=== PATIENT | male | born 1955 | race Caucasian/White ===

== ENCOUNTER 2021-04-02 12:03 | Inpatient (IN) ==
[2021-04-02 13:06] LABS: Basophils # (auto) 0.05 K/uL (0-0.2); Basophils % (auto) 0.4 %; Eosinophils # (auto) 0.75 K/uL (0-0.5); Eosinophils % (auto) 6.5 %; Hematocrit (blood only) 46.1 % (42-52); Hemoglobin 15.2 g/dL (14.0-18.0); Immature Granulocytes # (auto) 0.03 K/uL (0.00-0.02); Immature Granulocytes % (auto) 0.3 %; Lymphocytes # (auto) 2.49 K/uL (1.2-3.4); Lymphocytes % (auto) 21.6 %; Mean Corpuscular Volume 91.1 fL (80-100); Mean Platelet Volume 10.8 fL (7.4-10.4); Monocytes # (auto) 0.78 K/uL (0.11-0.59); Monocytes % (auto) 6.8 %; Neutrophils # (auto) 7.43 K/uL (1.4-6.5); Neutrophils % (auto) 64.4 %; Platelet Count 247 K/uL (130-400); RDW Coefficient of Variation 14.4 % (11.5-14.5); Red Blood Count 5.06 M/uL (4.7-6.1); White Blood Count 11.53 K/uL (4.8-10.8)
[2021-04-02 13:11] LABS: Alanine Aminotransferase 17 U/L (12-78); Aspartate Aminotransferase 10 U/L (15-37); BUN Creatinine Ratio 19.3 (10-20); Blood Urea Nitrogen 23 mg/dl (7-18); Calcium 9.9 mg/dl (8.5-10.1); Carbon Dioxide 30 mmol/L (21-32); Chloride 98 mmol/L (98-107); Est GFR (African American) 73.3 ml/min; Est GFR (Non-African American) 63.3 ml/min; Glucose 163 mg/dl (70-99); Magnesium 1.6 mg/dl (1.8-2.4); Potassium 4.4 mmol/L (3.5-5.1); Sodium 134 mmol/L (136-145)
[2021-04-02 13:16] LABS: Alkaline Phosphatase 100 U/L (45-117); Bilirubin,Total 0.3 mg/dl (0.2-1); Globulin 3.9 gm/dl (2.5-4.0); Total Protein 7.9 gm/dl (6.4-8.2); Troponin I < 0.015 ng/ml (0-0.045)
[2021-04-02 13:18] LABS: Partial Thromboplastin Ratio 1.1; Partial Thromboplastin Time 29.2 Seconds (21.0-31.0); Prothrombin Time 9.8 Seconds (9.0-12.0)
--- NOTE | 2021-04-02 13:19 | XRay Report ---
SINGLE VIEW CHEST CLINICAL HISTORY: Dyspnea. FINDINGS: An AP, portable, upright chest radiograph is obtained. No prior studies are available for c omparison at the time of dictation. The heart is mildly enlarged noting atherosclerotic calcification of the thoracic aorta. There is prominence of the pulmonary vasculature. Bibasilar opacities likely represent scarring/atelectasis. No large pleural effusion or pneumothorax is seen. The skeletal struc tures are osteopenic. The bony thorax is grossly intact. IMPRESSION: 1. Cardiomegaly with prominence of the pulmonary vasculature. Correlate clinically for evidence of mi ld congestive failure. 2. Bibasilar opacities likely represent scarring/atelectasis. Clinical correlation will be required. ACT 112: Negative or not required by law. Electronically signed by: Herson Lopez M.D. 04/02/2021 1:18 PM
--- NOTE | 2021-04-02 13:30 | Emergency Department Note ---
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 He has noted progressive dyspnea on exertion and intermittent shortness of breath at rest. He has to sleep upright in his recliner or in bed with at least 2 pillows. He has had a productive cough over the last two weeks along with distention of his ab domen and stable lower extremity swelling. He has not noted any chest pain prior to this worsening of his breathing and currently is chest pain free. Stress Echo on 03/19/20 with normal LV size and systolic function with EF at 60% at rest with no wall motion abnormality and dilated right ventricle. Normal response to dobutamine. He has had a heart cath in April that showed PAH that was thought to be secondary to untreated severe BETTE and non-occlusive CAD. He was last seen by cardiology in May but has canceled all of his follow up appointments. He has been taking his 40mg of Lasix daily. He does not follow a low sodium diet and does not weigh himself. He has not been vaccinated against COVID-19, does not have any sick contacts. He denies fevers, diarrhea or sore throat. On arrival the patient is no acute distress, afebrile with O2 saturation 86% on room air vital signs otherwise stable. On exam the patient does appear hypervolemic with scant bilateral lower extremity edema, diminished breath sounds at the bases. He has mild JVD. EKG without overt acute ischemia. Chest x-ray demonstrates evidence of mild congestive failure. WBC 11.5K nonspecific. H/H and platelets within normal limits. Chemistry without metabolic acidosis. Magnesium 1.6 and electrolytes otherwise unremarkable. LFTs unremarkable. Troponin negative/undetectable. BNP within normal limits. COVID-[address] of the chest negative for PE. Note is made of intraluminal calcified density at the takeoff of the left upper lobe bronchus with minimal associated mucus or soft tissue. Nonspecific and could represent broncholith, calcified soft tissue lesion or aspirated foreign body. Mucous plugging is noted of the left upper lobe bronchus with segmental upper lobe atelectasis. Malignancy is in the differential but not definitive. Esophagitis is also seen. Patient was ordered for IV Lasix given his exam consistent with hypervolemia. However, given the patient's hypoxia he was in agreement with plan for admission. Case was discussed with CHARLIE Quinteros hospitalist, who will evaluate the patient for admission. This patient was managed with the assistance of resident, Dr. Zuluaga. I discussed the case with the resident, examined the patient, and confirm the findings and plan as documented in this note. Triage Nursing notes reviewed and agree them. Prior medical records reviewed Vital Signs: reviewed and remarkable for hypoxia. Differential diagnosis: Reactive airway disease, pneumonia, pneumothorax, COPD, CHF, infections, cardiac ischemia, pulmonary embolism, musculoskeletal, gastrointestinal, as well as o ther pathologies. ER treatment provided: See below. Diagnostics interpreted by me: ECG: Sinus tachycardia, 103 bpm, no ectopy, Right bundle branch block, no overt ST elevation or depression. Cardiac Monitoring: An order for continuous cardiac monitoring was placed and demonstrated sinus tachycardia, 103 bpm, no ectopy. Laboratory studies: See below Imaging studies: See below Consultation(s): Case was discussed with JAMES Quinteros hospitalist, who will evaluate the patient for admission. 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 He has noted progressive dyspnea on exertion and intermittent shortness of breath at rest. He has to sleep upright in his recliner or in bed with at least 2 pillows. He has had a productive cough over the last two weeks along with distention of his abdomen and stable lower extremity swelling. He has not noted any chest pain prior to this worsening of his breathing and currently is chest pain free. Stress Echo on 03/19/20 with normal LV size and systolic function with EF at 60% at rest with no wall motion abnormality and dilated right ventricle. Normal response to dobutamine. He has had a heart cath in April that showed PAH that was thought to be secondary to untreated severe BETTE and non-occlusive CAD. He was last seen by cardiology in May but has canceled all of his follow up appointments. He has been taking his 40mg of Lasix daily. He does not follow a low sodium diet and does not weigh himself. He has not been vaccinated against COVID-19, does not have any sick contacts. He denies fevers, diarrhea or sore throat. ROS: See above HPI for pertinent positives & negatives. A total of 10 systems reviewed and were otherwise negative. PAST MEDICAL HISTORY:See Below PAST SURGICAL HISTORY:See Below FAMILY HISTORY:See Below SOCIAL HISTORY:See Below HOME MEDICATIONS:See Below ALLERGIES:See Below VITALS:See Below PHYSICAL EXAMINATION: GENERAL: Awake, alert, fatigued, mildly dyspneic-appearing, in no distress, BMI 37.7. HENT: Normocephalic, atraumatic. Oropharynx unremarkable. EYES: Normal conjunctiva. Sclera non-icteric. NECK: Supple. No nuchal rigidity. FROM. Mild JVD. RESPIRATORY: Diminished breath sounds at the bases. CARDIAC: Regular rate, normal rhythm. Extremities warm and well perfused. Pulses equal. ABDOMEN: Mildly distended but soft. No tenderness to palpation. No rebound or guarding. No masses. RECTAL: Deferred. MUSCULOSKELETAL: Chest examination reveals no tenderness. The back is symmetrical on inspection without obvious abnormality. There is no CVA tenderness to palpation. No joint edema. LOWER EXTREMITIES: Calves are equal size bilaterally and non-tender. Scant BLE edema. No discoloration. NEURO: Normal sensorium. No sensory or motor deficits noted. SKIN: No rash or jaundice noted. Reinier Rao MD Past Med/Surg History Medical History CHF (congestive heart failure) Coronary artery disease Hyperlipidemia Hypertension BETTE (obstructive sleep apnea) Pulmonary hypertension Type 2 diabetes mellitus Family History Other Family history non-contributory Social History Smoking Status: Never smoker Tobacco Type: Cigarettes Hx Alcohol Use: Yes Hx Substance Use: No Preferred Language: Senegalese Communication Ability: Effective Resident Services Supervisor Required: No Beliefs That Will Affect Care: None Current Living Situation: Family Feels Safe at Home: Yes Assistive Devices: Glasses Allergies Allergies Allergy/AdvReac Type Severity Reaction Status Date / Time empagliflozin Allergy Intermediate Nausea, Unverified 04/02/21 16:57 [From Arianne] Dizziness Home Meds Home Medications Medication Instructions Recorded Confirmed amitriptyline 50 mg tablet 50 mg PO HS 04/02/21 04/02/21 aspirin 81 mg tablet,delayed 81 mg PO QAM 04/02/21 04/02/21 release cilostazol 100 mg tablet 100 mg PO BID 04/02/21 04/02/21 furosemide 40 mg tablet 40 mg PO QAM 04/02/21 04/02/21 glyburide 5 mg tablet 5 mg PO BID 04/02/21 04/02/21 insulin aspart U-100 100 unit/mL 6 unit SUBCUT AC 04/02/21 04/02/21 (3 mL) subcutaneous pen (Novolog Flexpen U-100 Insulin aspart) insulin detemir U-100 100 unit/mL 80 unit SUBCUT BID 04/02/21 04/02/21 (3 mL) subcutaneous pen (Levemir FlexTouch U-100 Insulin) lisinopril 30 mg tablet 30 mg PO QAM 04/02/21 04/02/21 metformin 1,000 mg tablet 1,000 mg PO BID 04/02/21 04/02/21 metoprolol succinate 50 mg 50 mg PO QAM 04/02/21 04/02/21 tablet,extended release 24 hr nitroglycerin 0.4 mg sublingual 0.4 mg BUCCAL DIRECTED PRN 04/02/21 04/02/21 tablet rosuvastatin 10 mg tablet (Crestor) 10 mg PO DAILY 04/02/21 04/02/21 Results & Data (ED) Vital Signs Vital Signs - 24 hr 04/02/21 12:03 04/02/21 12:48 04/02/21 12:53 Temperature 37.3 C Temperature Source Oral Pulse Rate 103 H 97 H Pulse Rate from SpO2 Sensor 97 H Respiratory Rate 19 24 Blood Pressure 146/113 H 129/80 Blood Pressure Mean 124 96 Pulse Oximetry 97 97 97 Oxygen Delivery Method Nasal Cannula Room Air Nasal Cannula Oxygen Flow Rate 3 Sepsis Recent Fever Within 48 Hours No Sepsis New/Unexplained Change in Mental Status No Sepsis Action Taken by Nursing No Action Required 04/02/21 13:00 04/02/21 13:30 04/02/21 14:03 Temperature Temperature Source Pulse Rate 93 H 88 86 Pulse Rate from SpO2 Sensor 93 H 88 86 Respiratory Rate 18 15 17 Blood Pressure 103/64 93/60 L 117/78 Blood Pressure Mean 77 71 91 Pulse Oximetry 96 96 99 Oxygen Delivery Method Nasal Cannula Nasal Cannula Nasal Cannula Oxygen Flow Rate 3 3 3 Sepsis Recent Fever Within 48 Hours Sepsis New/Unexplained Change in Mental Status Sepsis Action Taken by Nursing 04/02/21 14:30 04/02/21 15:00 04/02/21 15:41 Temperature Temperature Source Pulse Rate 85 85 85 Pulse Rate from SpO2 Sensor 85 87 Respiratory Rate 12 18 18 Blood Pressure 95/58 L 107/89 122/64 Blood Pressure Mean 70 95 83 Pulse Oximetry 99 99 98 Oxygen Delivery Method Oxygen Flow Rate 3 3 3 Sepsis Recent Fever Within 48 Hours Sepsis New/Unexplained Change in Mental Status Sepsis Action Taken by Nursing 04/02/21 16:00 04/02/21 16:30 04/02/21 17:00 Temperature Temperature Source Pulse Rate 82 80 75 Pulse Rate from SpO2 Sensor 82 81 76 Respiratory Rate 17 18 18 Blood Pressure 113/64 135/109 H 98/56 L Blood Pressure Mean 80 117 70 Pulse Oximetry 99 98 97 Oxygen Delivery Method Oxygen Flow Rate 3 3 2 Sepsis Recent Fever Within 48 Hours Sepsis New/Unexplained Change in Mental Status Sepsis Action Taken by Nursing 04/02/21 17:30 04/02/21 18:00 04/02/21 18:30 Temperature Temperature Source Pulse Rate 79 75 Pulse Rate from SpO2 Sensor 79 75 77 Respiratory Rate 18 14 18 Blood Pressure 92/55 L 103/56 L 115/85 Blood Pressure Mean 67 71 95 Pulse Oximetry 95 96 95 Oxygen Delivery Method Room Air Oxygen Flow Rate 2 2 2 Sepsis Recent Fever Within 48 Hours Sepsis New/Unexplained Change in Mental Status Sepsis Action Taken by Nursing 04/02/21 19:00 Temperature Temperature Source Pulse Rate 71 Pulse Rate from SpO2 Sensor 69 Respiratory Rate 14 Blood Pressure 97/65 L Blood Pressure Mean 75 Pulse Oximetry 92 Oxygen Delivery Method Oxygen Flow Rate 2 Sepsis Recent Fever Within 48 Hours Sepsis New/Unexplained Change in Mental Status Sepsis Action Taken by Nursing Laboratory Data Attestation: I reviewed the patient's lab results. Result diagrams: 04/02/21 12:15 04/02/21 12:15 Lab Results 04/02/21 04/02/21 04/02/21 Range/Units 12:15 12:15 12:15 WBC 11.53 H (4.8-10.8) K/uL RBC 5.06 (4.7-6.1) M/uL Hgb 15.2 (14.0-18.0) g/dL Hct 46.1 (42-52) % MCV 91.1 (80-100) fL MCH 30.0 (25-34) pg MCHC 33.0 (32-36) g/dL RDW Std Deviation 47.0 H (36.4-46.3) fL RDW Coeff of Larry 14.4 (11.5-14.5) % Plt Count 247 (130-400) K/uL MPV 10.8 H (7.4-10.4) fL Immature Gran % (Auto) 0.3 % Neut % (Auto) 64.4 % Lymph % (Auto) 21.6 % Ray % (Auto) 6.8 % Eos % (Auto) 6.5 % Baso % (Auto) 0.4 % Neut # (Auto) 7.43 H (1.4-6.5) K/uL Lymph # (Auto) 2.49 (1.2-3.4) K/uL Ray # (Auto) 0.78 H (0.11-0.59) K/uL Eos # (Auto) 0.75 H (0-0.5) K/uL Baso # (Auto) 0.05 (0-0.2) K/uL Immature Gran # (Auto) 0.03 H (0.00-0.02) K/uL PT 9.8 (9.0-12.0) Seconds INR 1.0 (0.9-1.1) APTT 29.2 (21.0-31.0) Seconds PTT Ratio 1.1 Sodium 134 L (136-145) mmol/L Potassium 4.4 (3.5-5.1) mmol/L Chloride 98 (98-107) mmol/L Carbon Dioxide 30 (21-32) mmol/L Anion Gap 6.0 (3-11) BUN 23 H (7-18) mg/dl Creatinine 1.19 (0.6-1.4) mg/dl Est Cr Clr Drug Dosing 75.0 ml/min Est GFR ( Amer) 73.3 ml/min Est GFR (Non-Af Amer) 63.3 ml/min BUN/Creatinine Ratio 19.3 (10-20) Glucose 163 H (70-99) mg/dl Calcium 9.9 (8.5-10.1) mg/dl Magnesium 1.6 L (1.8-2.4) mg/dl Total Bilirubin 0.3 (0.2-1) mg/dl AST 10 L (15-37) U/L ALT 17 (12-78) U/L Alkaline Phosphatase 100 (45-117) U/L Troponin I < 0.015 (0-0.045) ng/ml NT-Pro-B Natriuret Pep (0-900) pg/ml Total Protein 7.9 (6.4-8.2) gm/dl Albumin 4.0 (3.4-5.0) gm/dl Globulin 3.9 (2.5-4.0) gm/dl Albumin/Globulin Ratio 1.0 (0.9-2) COVID-19 Eval Order SARS-CoV-2 (PCR) (Negative) 04/02/21 04/02/21 04/02/21 Range/Units 12:15 14:02 14:02 WBC (4.8-10.8) K/uL RBC (4.7-6.1) M/uL Hgb (14.0-18.0) g/dL Hct (42-52) % MCV (80-100) fL MCH (25-34) pg MCHC (32-36) g/dL RDW Std Deviation (36.4-46.3) fL RDW Coeff of Larry (11.5-14.5) % Plt Count (130-400) K/uL MPV (7.4-10.4) fL Immature Gran % (Auto) % Neut % (Auto) % Lymph % (Auto) % Ray % (Auto) % Eos % (Auto) % Baso % (Auto) % Neut # (Auto) (1.4-6.5) K/uL Lymph # (Auto) (1.2-3.4) K/uL Ray # (Auto) (0.11-0.59) K/uL Eos # (Auto) (0-0.5) K/uL Baso # (Auto) (0-0.2) K/uL Immature Gran # (Auto) (0.00-0.02) K/uL PT (9.0-12.0) Seconds INR (0.9-1.1) APTT (21.0-31.0) Seconds PTT Ratio Sodium (136-145) mmol/L Potassium (3.5-5.1) mmol/L Chloride (98-107) mmol/L Carbon Dioxide (21-32) mmol/L Anion Gap (3-11) BUN (7-18) mg/dl Creatinine (0.6-1.4) mg/dl Est Cr Clr Drug Dosing ml/min Est GFR ( Amer) ml/min Est GFR (Non-Af Amer) ml/min BUN/Creatinine Ratio (10-20) Glucose (70-99) mg/dl Calcium (8.5-10.1) mg/dl Magnesium (1.8-2.4) mg/dl Total Bilirubin (0.2-1) mg/dl AST (15-37) U/L ALT (12-78) U/L Alkaline Phosphatase (45-117) U/L Troponin I (0-0.045) ng/ml NT-Pro-B Natriuret Pep 16 (0-900) pg/ml Total Protein (6.4-8.2) gm/dl Albumin (3.4-5.0) gm/dl Globulin (2.5-4.0) gm/dl Albumin/Globulin Ratio (0.9-2) COVID-19 Eval Order Covid19 at [facility] SARS-CoV-2 (PCR) NEGATIVE (Negative) Administered Medications Amitriptyline HCl (Amitriptyline Hcl 50 Mg Tab) 50 mg PO HS WENDY Stop: 05/02/21 23:12 Last Admin: 04/03/21 01:08 Dose: 50 mg Documented by: [id number] Cilostazol (Cilostazol 100 Mg Tab) 100 mg PO BID WENDY Stop: 05/02/21 23:12 Last Admin: 04/03/21 01:08 Dose: 100 mg Documented by: [id number] Enoxaparin Sodium (Enoxaparin Inj 40 Mg/0.4 Ml Syr) 40 mg SQ BID WENDY Stop: 05/02/21 23:44 Last Admin: 04/03/21 01:09 Dose: 40 mg Documented by: [id number] Insulin Aspart (Insulin Aspart 100 Units/Ml 3 Ml Pen) 0 units SC ACHS WENDY Stop: 05/02/21 23:44 Last Admin: 04/03/21 01:09 Dose: 1 units Documented by: [id number] Cosigned by: [id number] Discontinued Medications Furosemide (Furosemide 40 Mg/4 Ml Vial) 40 mg IV NOW STA Stop: 04/02/21 13:38 Last Admin: 04/02/21 13:54 Dose: 40 mg Documented by: [id number] Magnesium Sulfate/Dextrose (Magnesium Sulfate / D5w) 1 gm in 100 mls @ 50 mls/hr IV Q2H STA Stop: 04/02/21 21:54 Last Infusion: 04/02/21 22:32 Dose: 0 mls/hr Documented by: [id number] Admin: 04/02/21 20:20 Dose: 50 mls/hr Documented by: [id number] Ioversol (Optiray 320 125ml) 120 ml IV ONCE ONE Stop: 04/02/21 15:35 Last Admin: 04/02/21 15:35 Dose: 120 ml Documented by: [id number] Imaging Data Radiologist's Impression: Chest CTA 04/02/21 15:11 CT ANGIOGRAPHY OF THE CHEST, PULMONARY EMBOLUS PROTOCOL CLINICAL HISTORY: Chest pain. COMPARISON STUDY: Chest radiograph performed earlier today. TECHNIQUE: Following IV administration of 120 mL of Optiray, helical axial images of the chest were obtained utilizing the pulmonary embolus protocol. Maximal intensity projections and sagittal and coronal reformats were viewed on an independent 3D workstation. IV contrast was administered without complication. Automated exposure control was utilized for the study. A dose lowering technique was utilized adhering to the principles of ALARA. CT DOSE: 741.47 mGy.cm FINDINGS: No pulmonary emboli are identified. There is mild circumferential wall thickening of the esophagus. Mild cardiomegaly is noted. There is no pericardial effusion. No enlarged axillary, mediastinal or hilar lymph nodes are present. There is no consolidation to suggest pneumonia. Note is made of an 8 mm intraluminal calcified density at the takeoff of the left upper lobe bronchus. This is minimal associated soft tissue or mucus. There is occlusion of the left upper lobe bronchus just distal to the calcified density. There is moderate left upper lobe volume loss with airspace opacity consistent with atelectasis. Otherwise, the central airways are patent. Subpleural right lower lobe opacity reflects atelectasis. No acute fracture or suspicious lesion is identified within visualized portions of the bony thorax. IMPRESSION: 1. No pulmonary emboli identified. 2. 8 mm intraluminal calcified density at the takeoff of the left upper lobe bronchus. Minimal associated mucus or soft tissue. This could reflect a broncholith, partially calcified soft tissue lesion or aspirated foreign body. Focal occlusion of the adjacent left upper lobe bronchus, likely due to mucus, with segmental left upper lobe atelectasis and moderate volume loss. Although the findings are not overtly suspicious for malignancy, this possibility cannot be completely excluded and Pulmonary consultation for consideration for bronc hoscopy is recommended. 3. Mild circumferential esophageal wall thickening which may reflect esophagitis. 4. No thoracic lymphadenopathy. ACT 112: Negative or not required by law. Electronically signed by: Thomas Saeed M.D. 04/02/2021 3:59 PM Discharge Plan Visit Data Chief Complaint: Shortness of Breath/Dyspnea Stated Complaint: SOB ED Provider: Reinier Rao ED Midlevel Provider: Samuel Zuluaga Discharge Problem: Congestive heart failure, Hypoxia, Mucus plugging of bronchi Patient Disposition: Admitted As Inpatient Discharge Instructions Interventions: ED Discharge Assessment Last Done: 04/02/21 22:45 Discharge Problem: Congestive heart failure Qualifiers: Heart failure type: unspecified Heart failure chronicity: acute on chronic Qualified Code(s): I50.9 - Heart failure, unspecified
[2021-04-02] MEDS ORDERED: FUROSEMIDE 40 MG/4 ML VIAL IV STA (13:37)
[2021-04-02] MEDS ORDERED: OPTIRAY 320 125ml IV ONE (15:34)
--- NOTE | 2021-04-02 16:00 | CT Scan Report ---
CT ANGIOGRAPHY OF THE CHEST, PULMONARY EMBOLUS PROTOCOL CLINICAL HISTORY: Chest pain. COMPARISON STUDY: Chest radiograph performed earlier today. TECHNIQUE: Following IV administration of 120 mL of Optiray, helical axial images of the chest were o btained utilizing the pulmonary embolus protocol. Maximal intensity projections and sagittal and cor onal reformats were viewed on an independent 3D workstation. IV contrast was administered without co mplication. Automated exposure control was utilized for the study. A dose lowering technique was ut ilized adhering to the principles of ALARA. CT DOSE: 741.47 mGy.cm FINDINGS: No pulmonary emboli are identified. There is mild circumferential wall thickening of the e sophagus. Mild cardiomegaly is noted. There is no pericardial effusion. No enlarged axillary, mediast inal or hilar lymph nodes are present. There is no consolidation to suggest pneumonia. Note is made o f an 8 mm intraluminal calcified density at the takeoff of the left upper lobe bronchus. This is mini mal associated soft tissue or mucus. There is occlusion of the left upper lobe bronchus just distal t o the calcified density. There is moderate left upper lobe volume loss with airspace opacity consiste nt with atelectasis. Otherwise, the central airways are patent. Subpleural right lower lobe opacity r eflects atelectasis. No acute fracture or suspicious lesion is identified within visualized portions of the bony thorax. IMPRESSION: 1. No pulmonary emboli identified. 2. 8 mm intraluminal calcified density at the takeoff of the left upper lobe bronchus. Minimal associ ated mucus or soft tissue. This could reflect a broncholith, partially calcified soft tissue lesion o r aspirated foreign body. Focal occlusion of the adjacent left upper lobe bronchus, likely due to muc us, with segmental left upper lobe atelectasis and moderate volume loss. Although the findings are no t overtly suspicious for malignancy, this possibility cannot be completely excluded and Pulmonary con sultation for consideration for bronchoscopy is recommended. 3. Mild circumferential esophageal wall thickening which may reflect esophagitis. 4. No thoracic lymphadenopathy. ACT 112: Negative or not required by law. Electronically signed by: Thomas Monte M.D. 04/02/2021 3:59 PM
--- NOTE | 2021-04-02 19:19 | History & Physical Report ---
Date of Service April 02, 2021 History of Present Illness Chief Complaint: SOB Primary Care Provider: NO PCP 66 y/o M Hx HTN, HLD, DM II, PAD, CAD, CHF, obese, BETTE. Presents with progressive shortness of breath for the past few weeks. He denies CP, a cough or fevers. The pt is a poor historian. He does not compy with CPAP for BETTE and does not follow with a sanding machine tender automatic or his MD frequently. He states that he is always compliant with his medications however. The pt's 02 saturation was in the mid to high 80s on arrival. A CXR demonstrated vascular congestion. A CTA was obtained as he was tachycardic, and showed an 8mm density in a YASMEEN bronchus with local occlusion. There was no evidence of ischemia on an EKG. Labs were notable for a mag of 1.6 and mild leukocytosis. PMH: 1) HTN 2) HLD 3) IDDM 4) DM II 5) PAD 6) CAD - states he was catheterized twice for CP but did not receive stents 7) CHF - unspecified 8) Obese 9) BETTE - noncompliant with CPAP Surgical: Denies prior surgery Social: Quit smoking . Does not drink alcohol. Retired from [employer]. Family: Mother - multiple CVAs Father - DM Allergies Allergy/AdvReac Type Severity Reaction Status Date / Time empagliflozin Allergy Intermediate Nausea, Unverified 04/02/21 16:57 [From Jardiance] Dizziness Home Medications Medication Instructions Recorded Confirmed Type amitriptyline 50 mg tablet 50 mg PO HS 04/02/21 04/02/21 History aspirin 81 mg tablet,delayed 81 mg PO QAM 04/02/21 04/02/21 History release cilostazol 100 mg tablet 100 mg PO BID 04/02/21 04/02/21 History furosemide 40 mg tablet 40 mg PO QAM 04/02/21 04/02/21 History glyburide 5 mg tablet 5 mg PO BID 04/02/21 04/02/21 History insulin aspart U-100 100 unit/mL 6 unit SUBCUT AC 04/02/21 04/02/21 History (3 mL) subcutaneous pen (Novolog Flexpen U-100 Insulin aspart) insulin detemir U-100 100 unit/mL 80 unit SUBCUT BID 04/02/21 04/02/21 History (3 mL) subcutaneous pen (Levemir FlexTouch U-100 Insulin) lisinopril 30 mg tablet 30 mg PO QAM 04/02/21 04/02/21 History metformin 1,000 mg tablet 1,000 mg PO BID 04/02/21 04/02/21 History metoprolol succinate 50 mg 50 mg PO QAM 04/02/21 04/02/21 History tablet,extended release 24 hr nitroglycerin 0.4 mg sublingual 0.4 mg BUCCAL DIRECTED PRN 04/02/21 04/02/21 History tablet rosuvastatin 10 mg tablet (Crestor) 10 mg PO DAILY 04/02/21 04/02/21 History Past Med/Surg History Social History Smoking Status: Former smoker Tobacco Type: Cigarettes Preferred Language: Palestinian Feels Safe at Home: Yes Review of Systems Review of Systems: Gen: Denies fevers, night sweats, rigors, fatigue, malaise, weight loss/gain ENT: Denies congestion, throat pain, hearing loss Eyes: Denies acute visual changes CV: Denies CP, palpitations Pulmonary: Progressive SOB without cough as above GI: Denies N/V, diarrhea, constipation Neuro: Denies acute or unilateral weakness, acute gait impairment, headache or acute visual changes Musculoskeletal: Denies joint pain, inflammation Endocrine: Denies polydipsia, polyuria Skin: Denies acute rashes or ulcers Physical Exam Physical Exam: General: AAO x 3, no distress ENT: No erythema or exudates, no thrush Eyes: LOW, EOMI Head and neck: Normocephalic, atraumatic, No JVD, neck is supple. Chest/heart: Nontender, S1,2, RRR, no murmurs, no gallops Lungs: CTAB, no wheezing or crackles Abdomen: Nontender, nondistended, BS+ Neuro: AAO x 3, speech is clear, no unilateral weakness or loss of sensation, coordination intact Musculoskeletal: No joint inflammation, muscle tenderness, FROM Skin: No acute rashes or ulcers Extremities: No clubbing, cyanosis, edema Results & Data Results & Data ([facility]) Vital Signs (Past 12 Hours) Vital Signs Temp Pulse Resp BP Pulse Ox 04/02/21 18:30 86 L 04/02/21 17:30 79 18 92/55 L 95 04/02/21 17:00 75 18 98/56 L 97 04/02/21 16:30 80 18 135/109 H 98 04/02/21 16:00 82 17 113/64 99 04/02/21 15:41 85 18 122/64 98 04/02/21 15:00 85 18 107/89 99 04/02/21 14:30 85 12 95/58 L 99 04/02/21 14:03 86 17 117/78 99 04/02/21 13:30 88 15 93/60 L 96 04/02/21 13:00 93 H 18 103/64 96 04/02/21 12:53 97 04/02/21 12:48 97 H 24 129/80 97 04/02/21 12:03 99.1 F 103 H 19 146/113 H 97 Code Status & VTE Plan VTE Prophylaxis Plan VTE Prophylaxis will be ordered: Yes Supervising Physician Co-Signing Physician Notes 66 y/o M Hx HTN, HLD, DM II, PAD, CAD, CHF, obese, BETTE. Presents with progressive shortness of breath for the past few weeks. He denies CP, a cough or fevers. The pt is a poor historian. He does not compy with CPAP for BETTE and does not follow with a sanding machine tender automatic or his MD frequently. He states that he is always compliant with his medications however. The pt's 02 saturation was in the mid to high 80s on arrival. A CXR demonstrated vascular congestion. A CTA was obtained as he was tachycardic, and showed an 8mm density in a YASMEEN bronchus with local occlusion. There was no evidence of ischemia on an EKG. Labs were notable for a mag of 1.6 and mild leukocytosis. 1) Shortness of breath - after receiving IV Lasix in the ER, the pt's oxygen saturation improved into the 90s on RA. When ambulating, he did desaturate however. It is not clear if the occluded bronchus is contributing to his symptoms. We will consult pulmonology. 2) CHF - unknown EF - echo is ordered - cont metoprolol, Lasix. Daily weights, I/O 3) CAD - no evidence of ACS - cont ASA, statin, beta shi 4) DM - sliding scale 5) HTN, HLD - cont lisinopril, metoprolol, Crestor 6) BETTE - not compliant with CPAP - will order 02 HS 7) Hypomagnesemia - received Mg Full code - Lovenox prophylaxis Total time for this admit including review of labs, meds, imaging, records - discussion with pt and ER attending - 45 min PG Care Time/CCT Total # of Minutes Spent Total Time Spent with Patient: Total time spent is greater than 50% in coordination of care (as documented) at patient's floor/unit and/or counseling patient: Coding Level of Care Code 64560 Initial Inpt Care Lvl 3
[2021-04-02] MEDS ORDERED: MAGNESIUM SULFATE / D5W 1 GM/100 ML BAG IV STA (19:55)
[2021-04-02] MEDS ORDERED: CARBOHYDRATES FOR HYPOGLYCEMIA PO PRN (23:13)
[2021-04-02] MEDS ORDERED: DEXTROSE 50% 50 ML SYRINGE IV PRN (23:13)
[2021-04-02] MEDS ORDERED: GLUCAGON FOR INJ 1 MG VIAL SQ PRN (23:13)
[2021-04-02] MEDS ORDERED: GLUCOSE 10 TABS/TUBE PO PRN (23:13)
[2021-04-02] MEDS ORDERED: GLUCOSE 40% GEL 15 GM TUBE PO PRN (23:13)
[2021-04-02] MEDS ORDERED: ACETAMINOPHEN 325 MG TAB PO PRN (23:13)
[2021-04-03] MEDS: AMITRIPTYLINE HCL 50 MG TAB PO SCH ×2 (01:08→20:05)
[2021-04-03] MEDS: cilostazoL 100 MG TAB PO SCH ×3 (01:08→20:05)
[2021-04-03] MEDS: ENOXAPARIN INJ 40 MG/0.4 ML SYR SQ SCH ×3 (01:09→20:04)
[2021-04-03] MEDS: INSULIN ASPART 100 UNITS/ML 3 ML PEN SC SCH ×5 (01:09→20:11)
[2021-04-03 07:52] LABS: Basophils # (auto) 0.04 K/uL (0-0.2); Basophils % (auto) 0.4 %; Eosinophils # (auto) 0.76 K/uL (0-0.5); Eosinophils % (auto) 6.9 %; Hematocrit (blood only) 44.1 % (42-52); Hemoglobin 14.2 g/dL (14.0-18.0); Immature Granulocytes # (auto) 0.03 K/uL (0.00-0.02); Immature Granulocytes % (auto) 0.3 %; Lymphocytes # (auto) 2.73 K/uL (1.2-3.4); Lymphocytes % (auto) 24.7 %; Mean Corpuscular Hemoglobin 29.9 pg (25-34); Mean Corpuscular Hgb Conc 32.2 g/dL (32-36); Mean Corpuscular Volume 92.8 fL (80-100); Mean Platelet Volume 10.8 fL (7.4-10.4); Monocytes # (auto) 0.87 K/uL (0.11-0.59); Monocytes % (auto) 7.9 %; Neutrophils # (auto) 6.64 K/uL (1.4-6.5); Neutrophils % (auto) 59.8 %; Platelet Count 258 K/uL (130-400); RDW Coefficient of Variation 14.5 % (11.5-14.5); Red Blood Count 4.75 M/uL (4.7-6.1); White Blood Count 11.07 K/uL (4.8-10.8)
--- NOTE | 2021-04-03 07:57 | Pulmonary Consultation ---
Date of Consultation April 03, 2021 Assessment & Plan (1) Pneumonia: (2) Acute respiratory failure with hypoxia: (3) Abnormal chest CT: Chest 04/02/2021 personally reviewed: Left upper lobe atelectasis At the uptake of the left upper lobe there is a calcified 8 mm opacity. Foreign body cannot be ruled out Dependent atelectasis right lower lobe --Abnormal chest CT Patient has atelectasis of the left upper lobe with a calcified 8 mm opacity at the takeoff Postobstructive pneumonia cannot be ruled out Plan would be to have a bronchoscopy done --Acute hypoxic respiratory failure Likely secondary to atelectasis of the left upper lobe BNP 16 COVID-19 negative He does have a eosinophilia with eosinophil count 760 --Ex-smoker 35 years smoking history, quit 20 years ago Records reviewed abstinence from smoking PFTs as an outpatient Plan: Bronchoscopy on Tuesday N.p.o. post midnight Hold Lovenox on Tuesday Follow-up procalcitonin Start Rocephin. Patient's QTC is 497 Please note the above document was generated using voice recognition software. It may contain grammatical, syntax or spelling errors.Any formal questions or concerns about the content, text or information contained within the body of this dictation should be directly addressed to the provider for clarification. History of Present Illness Attending Physician: Virgil Terrell History of Present Illness 66-year-old past medical history of type 2 diabetes, coronary artery disease, dyslipidemia presented to the hospital with complaints of shortness of breath going on since last couple of weeks. He also has history of sleep apnea but is not compliant with CPAP Pulmonary consulted for abnormal CT chest Please make note patient is a poor historian. At the time of examination patient states he is doing okay when it comes to his breathing He feels better after coming to the hospital. Denies any chest pain. Denies any dysuria, or diarrhea. Has been coughing but not bringing up any phlegm. Denies any fever or chills. Social history: [id number] smoking history quit approximately 20 years ago years ago, social alcohol, denies any illicit drug use Allergies Allergy/AdvReac Type Severity Reaction Status Date / Time empagliflozin Allergy Intermediate Nausea, Unverified 04/02/21 16:57 [From Jardiance] Dizziness Home Medications Medication Instructions Recorded Confirmed Type amitriptyline 50 mg tablet 50 mg PO HS 08/26/21 08/26/21 History aspirin 81 mg tablet,delayed 81 mg PO QAM 04/02/21 04/02/21 History release cilostazol 100 mg tablet 100 mg PO BID 04/02/21 04/02/21 History furosemide 40 mg tablet 40 mg PO QAM 04/02/21 04/02/21 History glyburide 5 mg tablet 5 mg PO BID 04/02/21 04/02/21 History insulin aspart U-100 100 unit/mL 6 unit SUBCUT AC 04/02/21 04/02/21 History (3 mL) subcutaneous pen (Novolog Flexpen U-100 Insulin aspart) insulin detemir U-100 100 unit/mL 80 unit SUBCUT BID 04/02/21 04/02/21 History (3 mL) subcutaneous pen (Levemir FlexTouch U-100 Insulin) lisinopril 30 mg tablet 30 mg PO QAM 04/02/21 04/02/21 History metformin 1,000 mg tablet 1,000 mg PO BID 04/02/21 04/02/21 History metoprolol succinate 50 mg 50 mg PO QAM 04/02/21 04/02/21 History tablet,extended release 24 hr nitroglycerin 0.4 mg sublingual 0.4 mg BUCCAL DIRECTED PRN 04/02/21 04/02/21 History tablet rosuvastatin 10 mg tablet (Crestor) 10 mg PO DAILY 04/02/21 04/02/21 History Patient History Medical History CHF (congestive heart failure) Coronary artery disease Hyperlipidemia Hypertension BETTE (obstructive sleep apnea) Pulmonary hypertension Type 2 diabetes mellitus Family History Other Family history non-contributory Social History Smoking Status: Never smoker Tobacco Type: Cigarettes Hx Alcohol Use: Yes Hx Substance Use: No Preferred Language: Swedish Communication Ability: Effective Brownell Operator Required: No Beliefs That Will Affect Care: None Current Living Situation: Family How many Children do You have: 5 Feels Safe at Home: Yes Assistive Devices: None Review of Systems Review of Systems: All systems reviewed & are unremarkable except as noted in HPI & below Physical Exam Physical Exam: Constitutional: No acute distress HEENT: EOMI, PERRLA Respiratory system: Decreased air entry bilaterally, no wheeze, no rhonchi, no crackles CVS: S1-S2 positive, no murmurs or gallops Abdomen: Soft, nontender, nondistended, positive bowel sounds x4, obese Extremities: +2 pulses bilaterally radialis/ dorsalis pedis, no cyanosis, no edema Neuro: Awake alert oriented x3 Psych: Normal mood and affect G/U: No Choi Skin: no rashes, warm and dry Lymphatic: no cervical or axillary lymphadenopathy Results & Data Results & Data ([facility]) Vital Signs (Past 12 Hours) Vital Signs Temp Pulse Pulse Resp BP BP Pulse Ox 04/03/21 04:00 36.5 C 73 20 126/80 94 04/02/21 22:58 36.7 C 75 20 133/75 94 04/02/21 22:30 76 16 102/67 93 04/02/21 21:30 78 17 98/50 L 94 04/02/21 21:00 75 16 96/62 L 96 04/02/21 20:30 90 18 98/72 L 93 04/02/21 20:01 73 113/63 95 04/03/21 07:06 PG Care Time/CCT Total # of Minutes Spent Total Time Spent with Patient: Total time spent is greater than 50% in coordination of care (as documented) at patient's floor/unit and/or counseling patient: Coding Level of Care Code 21584 Initial Inpt Care Lvl 3 Diagnoses Pneumonia J18.9 Acute respiratory failure with hypoxia J96.[address] R93.89
[2021-04-03 08:27] LABS: BUN Creatinine Ratio 22.4 (10-20); Creatinine Clr Calc Pharmacy 61.7 ml/min; Est GFR (African American) 58.7 ml/min; Est GFR (Non-African American) 50.7 ml/min; Magnesium 2.2 mg/dl (1.8-2.4); Potassium 4.6 mmol/L (3.5-5.1)
[2021-04-03] MEDS: METOPROLOL SUCC 50MG EXT REL TAB PO SCH (08:29)
[2021-04-03] MEDS: FUROSEMIDE 40 MG TAB PO SCH (08:29)
[2021-04-03] MEDS: lisinopril 10 MG TAB PO SCH (08:29)
[2021-04-03] MEDS: ROSUVASTATIN CALCIUM 10 MG TAB PO SCH (08:29)
[2021-04-03] MEDS: ASPIRIN 81 MG ECTAB PO SCH (08:29)
[2021-04-03] MEDS: MAGNESIUM OXIDE 400 MG TAB PO SCH (08:30)
--- NOTE | 2021-04-03 17:16 | Electrocardiogram Report ---
Test Reason : Blood Pressure : / mmHG Vent. Rate : 103 BPM Atrial Rate : 103 BPM P-R Int : 178 ms QRS Dur : 148 ms QT Int : 380 ms P-R-T Axes : 036 -40 -01 degrees QTc Int : 497 ms Sinus tachycardia Left axis deviation Right bundle branch block Septal infarct , age undetermined Abnormal ECG No previous ECGs available Confirmed by Alex Suazo ([id number]) on 04/03/2021 5:15:45 PM Referred By: REFERRED SELF Confirmed By:Alex Suazo
[2021-04-03] MEDS: cefTRIAXone SODIUM 2,000 MG in DEXTROSE 5% 50 ML IV SCH (17:27)
--- NOTE | 2021-04-03 18:05 | XCELERA ---
[id number]
--- NOTE | 2021-04-03 23:13 | Hospitalist Progress Note ---
Date of Service April 03, 2021 Assessment & Plan (1) Congestive heart failure: Plan: 66 y/o M Hx HTN, HLD, DM II, PAD, CAD, CHF, obese, BETTE. Presents with progressive shortness of breath for the past few weeks. He denies CP, a cough or fevers. The pt is a poor historian. He does not compy with CPAP for BETTE and does not follow with a circuit design engineer or his MD frequently. He states that he is always compliant with his medications however. The pt's 02 saturation was in the mid to high 80s on arrival. A CXR demonstrated vascular congestion. A CTA was obtained as he was tachycardic, and showed an 8mm density in a YASMEEN bronchus with local occlusion. There was no evidence of ischemia on an EKG. Labs were notable for a mag of 1.6 and mild leukocytosis. 1) Shortness of breath - after receiving IV Lasix in the ER, the pt's oxygen saturation improved into the 90s on RA. When ambulating, he did desaturate however. It is not clear if the occluded bronchus is contributing to his symptoms. Appreciate input from pulmonary. Patient will have bronchoscopy on Tuesday 2) CHF - unknown EF - echo is ordered - cont metoprolol, Lasix. Daily weights, I/O 3) CAD - no evidence of ACS - cont ASA, statin, beta shi 4) DM - sliding scale 5) HTN, HLD - cont lisinopril, metoprolol, Crestor 6) BETTE - not compliant with CPAP - will order 02 HS 7) Hypomagnesemia - received Mg Full code - Lovenox prophylaxis Admission and Anticipated Discharge Date Admission Date: April 02, 2021 Subjective Patient reports feeling well. He has no new complaints. Review of Systems Review of Systems: Gen: Denies fevers, night sweats, rigors, fatigue, malaise, weight loss/gain ENT: Denies congestion, throat pain, hearing loss Eyes: Denies acute visual changes CV: Denies CP, palpitations Pulmonary: Progressive SOB without cough as above GI: Denies N/V, diarrhea, constipation Neuro: Denies acute or unilateral weakness, acute gait impairment, headache or acute visual changes Musculoskeletal: Denies joint pain, inflammation Endocrine: Denies polydipsia, polyuria Skin: Denies acute rashes or ulcers Physical Exam Physical Exam: General: AAO x 3, no distress ENT: No erythema or exudates, no thrush Eyes: LOW, EOMI Head and neck: Normocephalic, atraumatic, No JVD, neck is supple. Chest/heart: Nontender, S1,2, RRR, no murmurs, no gallops Lungs: CTAB, no wheezing or crackles Abdomen: Nontender, nondistended, BS+ Neuro: AAO x 3, speech is clear, no unilateral weakness or loss of sensation, coordination intact Musculoskeletal: No joint inflammation, muscle tenderness, FROM Skin: No acute rashes or ulcers Extremities: No clubbing, cyanosis, edema Results & Data Results & Data ([facility]) Vital Signs (Past 12 Hours) Vital Signs Temp Pulse Pulse Resp BP Pulse Ox 04/03/21 19:21 36.7 C 80 18 94/63 L 96 04/03/21 18:13 65 04/03/21 15:18 36.6 C 67 18 95/61 L 93 04/03/21 11:46 36.6 C 67 19 102/66 96 PG Care Time/CCT Total # of Minutes Spent Total Time Spent with Patient: Total time spent is greater than 50% in coordination of care (as documented) at patient's floor/unit and/or counseling patient: Coding Level of Care Code 07116 Subseq Hosp Care Lvl 2 Diagnoses Congestive heart failure I50.9 Heart failure chronicity: acute on chronic Heart failure type: unspecified Time Spent (min) 25 (1) Congestive heart failure Heart failure chronicity: acute on chronic Heart failure type: unspecified Qualified Code(s): I50.9 - Heart failure, unspecified
[2021-04-04] MEDS: INSULIN ASPART 100 UNITS/ML 3 ML PEN SC SCH ×4 (08:11→21:57)
[2021-04-04] MEDS: METOPROLOL SUCC 50MG EXT REL TAB PO SCH (09:28)
[2021-04-04] MEDS: FUROSEMIDE 40 MG TAB PO SCH (09:28)
[2021-04-04] MEDS: MAGNESIUM OXIDE 400 MG TAB PO SCH (09:28)
[2021-04-04] MEDS: cilostazoL 100 MG TAB PO SCH ×2 (09:28→21:05)
[2021-04-04] MEDS: ASPIRIN 81 MG ECTAB PO SCH (09:28)
[2021-04-04] MEDS: lisinopril 10 MG TAB PO SCH (09:28)
[2021-04-04] MEDS: ROSUVASTATIN CALCIUM 10 MG TAB PO SCH (09:29)
[2021-04-04] MEDS: ENOXAPARIN INJ 40 MG/0.4 ML SYR SQ SCH ×2 (09:29→21:05)
--- NOTE | 2021-04-04 14:48 | Pulmonology Progress Note ---
Date of Service April 04, 2021 Assessment & Plan (1) Pneumonia: (2) Acute respiratory failure with hypoxia: (3) Abnormal chest CT: Plan: Chest 04/02/2021 personally reviewed: Left upper lobe atelectasis At the uptake of the left upper lobe there is a calcified 8 mm opacity. Foreign body cannot be ruled out Dependent atelectasis right lower lobe --Abnormal chest CT Patient has atelectasis of the left upper lobe with a calcified 8 mm opacity at the takeoff Postobstructive pneumonia cannot be ruled out Plan would be to have a bronchoscopy done --Acute hypoxic respiratory failure Likely secondary to atelectasis of the left upper lobe BNP 16 COVID-19 negative For cough NECK: Supple, nontender, no lymphadenopathy. He does have a eosinophilia with eosinophil count 760 --Ex-smoker 35 years smoking history, quit 20 years ago Records reviewed abstinence from smoking PFTs as an outpatient Plan: Continue with antibiotics Bronchoscopy 04/06/2021 Please note the above document was generated using voice recognition software. It may contain grammatical, syntax or spelling errors.Any formal questions or concerns about the content, text or information contained within the body of this dictation should be directly addressed to the provider for clarification. Admission and Anticipated Discharge Date Admission Date: April 04, 2021 Subjective Patient seen and examined at bedside. No acute distress, no adverse events overnight. Patient said that he is feeling better compared to when he came to the hospital. Denies any chest pain. Occasional cough not bringing up any phlegm. On asking whether he has any knowledge of aspirating anything like a tooth he denies. Patient has no teeth and he has no dentures. Review of Systems Review of Systems: All systems reviewed & are unremarkable except as noted in Subjective Physical Exam Physical Exam: Constitutional: No acute distress HEENT: EOMI, PERRLA Respiratory system: Decreased air entry bilaterally, no wheeze, no rhonchi, no crackles CVS: S1-S2 positive, no murmurs or gallops Abdomen: Soft, nontender, nondistended, positive bowel sounds x4, obese Extremities: +2 pulses bilaterally radialis/ dorsalis pedis, no cyanosis, no edema Neuro: Awake alert oriented x3 Psych: Normal mood and affect G/U: No Choi Skin: no rashes, warm and dry Lymphatic: no cervical or axillary lymphadenopathy Results & Data Results & Data ([facility]) Vital Signs (Past 12 Hours) Vital Signs Temp Pulse Pulse Resp BP Pulse Ox 04/04/21 11:08 36.4 C L 78 17 115/72 90 04/04/21 08:30 66 04/04/21 07:25 36.7 C 76 18 117/71 94 04/04/21 03:27 36.5 C 67 20 102/64 91 04/03/21 07:06 04/03/21 07:06 PG Care Time/CCT Total # of Minutes Spent Total Time Spent with Patient: Total time spent is greater than 50% in coordination of care (as documented) at patient's floor/unit and/or counseling patient: Coding Level of Care Code 95516 Subseq Hosp Care Lvl 2 Diagnoses Pneumonia J18.9 Acute respiratory failure with hypoxia J96.[address] R93.89
[2021-04-04] MEDS: cefTRIAXone SODIUM 2,000 MG in DEXTROSE 5% 50 ML IV SCH (17:14)
[2021-04-04] MEDS: AMITRIPTYLINE HCL 50 MG TAB PO SCH (21:05)
--- NOTE | 2021-04-04 22:21 | Hospitalist Progress Note ---
Date of Service April 04, 2021 Assessment & Plan (1) Congestive heart failure: Plan: 66 y/o M Hx HTN, HLD, DM II, PAD, CAD, CHF, obese, BETTE. Presents with progressive shortness of breath for the past few weeks. He denies CP, a cough or fevers. The pt is a poor historian. He does not compy with CPAP for BETTE and does not follow with a demand manager or his MD frequently. He states that he is always compliant with his medications however. The pt's 02 saturation was in the mid to high 80s on arrival. A CXR demonstrated vascular congestion. A CTA was obtained as he was tachycardic, and showed an 8mm density in a YASMEEN bronchus with local occlusion. There was no evidence of ischemia on an EKG. Labs were notable for a mag of 1.6 and mild leukocytosis. 1) Shortness of breath - after receiving IV Lasix in the ER, the pt's oxygen saturation improved into the 90s on RA. When ambulating, he did desaturate however. It is not clear if the occluded bronchus is contributing to his symptoms. Appreciate input from pulmonary. Patient will have bronchoscopy on Tuesday. SOB appears to be improving. will transfer off of PCU. 2) CHF - unknown EF - echo is ordered - cont metoprolol, Lasix. Daily weights, I/O 3) CAD - no evidence of ACS - cont ASA, statin, beta shi 4) DM - sliding scale 5) HTN, HLD - cont lisinopril, metoprolol, Crestor 6) BETTE - not compliant with CPAP - will order 02 HS 7) Hypomagnesemia - received Mg Full code - Lovenox prophylaxis Admission and Anticipated Discharge Date Admission Date: April 04, 2021 Subjective Patient reports breathing better. She has no new coomplaints. Review of Systems Review of Systems: All systems reviewed & are unremarkable except as noted in HPI & below Physical Exam Physical Exam: General: AAO x 3, no distress ENT: No erythema or exudates, no thrush Eyes: LOW, EOMI Head and neck: Normocephalic, atraumatic, No JVD, neck is supple. Chest/heart: Nontender, S1,2, RRR, no murmurs, no gallops Lungs: CTAB, no wheezing or crackles Abdomen: Nontender, nondistended, BS+ Neuro: AAO x 3, speech is clear, no unilateral weakness or loss of sensation, coordination intact Musculoskeletal: No joint inflammation, muscle tenderness, FROM Skin: No acute rashes or ulcers Extremities: No clubbing, cyanosis, edema Results & Data Results & Data ([facility]) Vital Signs (Past 12 Hours) Vital Signs Temp Pulse Pulse Pulse Resp BP Pulse Ox 04/04/21 19:03 36.8 C 72 18 152/78 H 95 04/04/21 18:23 73 04/04/21 11:08 36.4 C L 78 17 115/72 90 PG Care Time/CCT Total # of Minutes Spent Total Time Spent with Patient: Total time spent is greater than 50% in coordination of care (as documented) at patient's floor/unit and/or counseling patient: Coding Level of Care Code 33939 Subseq Hosp Care Lvl 2 Diagnoses Congestive heart failure I50.9 Heart failure chronicity: acute on chronic Heart failure type: unspecified Time Spent (min) 25 (1) Congestive heart failure Heart failure chronicity: acute on chronic Heart failure type: unspecified Qualified Code(s): I50.9 - Heart failure, unspecified
[2021-04-05] MEDS: INSULIN ASPART 100 UNITS/ML 3 ML PEN SC SCH ×4 (08:52→21:53)
[2021-04-05] MEDS: ROSUVASTATIN CALCIUM 10 MG TAB PO SCH (08:53)
[2021-04-05] MEDS: ASPIRIN 81 MG ECTAB PO SCH (08:53)
[2021-04-05] MEDS: METOPROLOL SUCC 50MG EXT REL TAB PO SCH (08:53)
[2021-04-05] MEDS: ENOXAPARIN INJ 40 MG/0.4 ML SYR SQ SCH (08:53)
[2021-04-05] MEDS: FUROSEMIDE 40 MG TAB PO SCH (08:53)
[2021-04-05] MEDS: MAGNESIUM OXIDE 400 MG TAB PO SCH (08:53)
[2021-04-05] MEDS: cilostazoL 100 MG TAB PO SCH ×2 (08:53→21:53)
[2021-04-05] MEDS: lisinopril 10 MG TAB PO SCH (08:53)
--- NOTE | 2021-04-05 14:04 | Pulmonology Progress Note ---
Date of Service April 05, 2021 Assessment & Plan (1) Pneumonia: (2) Acute respiratory failure with hypoxia: (3) Abnormal chest CT: Plan: Chest 04/02/2021 personally reviewed: Left upper lobe atelectasis At the uptake of the left upper lobe there is a calcified 8 mm opacity. Foreign body cannot be ruled out Dependent atelectasis right lower lobe --Abnormal chest CT Patient has atelectasis of the left upper lobe with a calcified 8 mm opacity at the takeoff Postobstructive pneumonia cannot be ruled out Plan would be to have a bronchoscopy done --Acute hypoxic respiratory failure Likely secondary to atelectasis of the left upper lobe BNP 16 COVID-19 negative He does have a eosinophilia with eosinophil count 760 --Ex-smoker 35 years smoking history, quit 20 years ago Records reviewed abstinence from smoking PFTs as an outpatient Plan: Continue with antibiotics For bronchoscopy tomorrow. Consent signed, witnessed and put in the chart Hold [employer] today Please note the above document was generated using voice recognition software. It may contain grammatical, syntax or spelling errors.Any formal questions or concerns about the content, text or information contained within the body of th is dictation should be directly addressed to the provider for clarification. Admission and Anticipated Discharge Date Admission Date: April 04, 2021 Subjective Patient seen and examined at bedside. No acute distress, no adverse events overnight. He states he feels better. Denies any chest pain, shortness of breath is improved, no headache, no nausea, no vomiting. Fair appetite Review of Systems Review of Systems: All systems reviewed & are unremarkable except as noted in Subjective Physical Exam Physical Exam: Constitutional: No acute distress HEENT: EOMI, PERRLA Respiratory system: Decreased air entry bilaterally, no wheeze, no rhonchi, no crackles CVS: S1-S2 positive, no murmurs or gallops Abdomen: Soft, nontender, nondistended, positive bowel sounds x4, obese Extremities: +2 pulses bilaterally radialis/ dorsalis pedis, no cyanosis, no edema Neuro: Awake alert oriented x3 Psych: Normal mood and affect G/U: No Choi Skin: no rashes, warm and dry Lymphatic: no cervical or axillary lymphadenopathy Results & Data Results & Data ([facility] [place]) Vital Signs (Past 12 Hours) Vital Signs Temp Pulse Pulse Resp BP Pulse Ox 04/05/21 11:56 36.6 C 71 18 102/58 L 91 04/05/21 07:40 75 04/05/21 06:57 36.8 C 88 18 107/66 93 04/05/21 03:48 37.0 C 72 20 133/75 93 04/05/21 02:10 70 04/03/21 07:06 04/03/21 07:06 PG Care Time/CCT Total # of Minutes Spent Total Time Spent with Patient: Total time spent is greater than 50% in coordination of care (as documented) at patient's floor/unit and/or counseling patient: Coding Level of Care Code 06520 Subseq Hosp Care Lvl 2 Diagnoses Pneumonia J18.9 Acute respiratory failure with hypoxia J96.[address] R93.89
[2021-04-05 14:19] LABS: Basophils # (auto) 0.03 K/uL (0-0.2); Basophils % (auto) 0.3 %; Eosinophils # (auto) 0.64 K/uL (0-0.5); Eosinophils % (auto) 6.8 %; Hemoglobin 13.3 g/dL (14.0-18.0); Immature Granulocytes # (auto) 0.03 K/uL (0.00-0.02); Immature Granulocytes % (auto) 0.3 %; Lymphocytes # (auto) 2.56 K/uL (1.2-3.4); Lymphocytes % (auto) 27.3 %; Mean Corpuscular Hemoglobin 30.6 pg (25-34); Mean Corpuscular Hgb Conc 32.4 g/dL (32-36); Mean Corpuscular Volume 94.3 fL (80-100); Mean Platelet Volume 10.6 fL (7.4-10.4); Monocytes # (auto) 0.73 K/uL (0.11-0.59); Monocytes % (auto) 7.8 %; Neutrophils # (auto) 5.38 K/uL (1.4-6.5); Neutrophils % (auto) 57.5 %; Platelet Count 236 K/uL (130-400); RDW Coefficient of Variation 14.2 % (11.5-14.5); RDW Standard Deviation 48.4 fL (36.4-46.3); Red Blood Count 4.35 M/uL (4.7-6.1); White Blood Count 9.37 K/uL (4.8-10.8)
[2021-04-05 14:38] LABS: BUN Creatinine Ratio 20.2 (10-20); Calcium 8.3 mg/dl (8.5-10.1); Est GFR (African American) 57.3 ml/min; Est GFR (Non-African American) 49.4 ml/min; Potassium 4.4 mmol/L (3.5-5.1)
[2021-04-05] MEDS: cefTRIAXone SODIUM 2,000 MG in DEXTROSE 5% 50 ML IV SCH (16:48)
--- NOTE | 2021-04-05 20:48 | Hospitalist Progress Note ---
Date of Service April 05, 2021 Assessment & Plan (1) Congestive heart failure: Plan: 66 y/o M Hx HTN, HLD, DM II, PAD, CAD, CHF, obese, BETTE. Presents with progressive shortness of breath for the past few weeks. He denies CP, a cough or fevers. The pt is a poor historian. He does not compy with CPAP for BETTE and does not follow with a bilingual trainer or his MD frequently. He states that he is always compliant with his medications however. The pt's 02 saturation was in the mid to high 80s on arrival. A CXR demonstrated vascular congestion. A CTA was obtained as he was tachycardic, and showed an 8mm density in a YASMEEN bronchus with local occlusion. There was no evidence of ischemia on an EKG. Labs were notable for a mag of 1.6 and mild leukocytosis. 1) Shortness of breath - after receiving IV Lasix in the ER, the pt's oxygen saturation improved into the 90s on RA. When ambulating, he did desaturate however. It is not clear if the occluded bronchus is contributing to his symptoms. Appreciate input from pulmonary. Patient will have bronchoscopy on Tuesday. SOB appears to be improving. remains on 3 liters nasal cannula NPO after midnight. 2) CHF - unknown EF - echo is ordered - cont metoprolol, Lasix. Daily weights, I/O 3) CAD - no evidence of ACS - cont ASA, statin, beta shi 4) DM - sliding scale 5) HTN, HLD - cont lisinopril, metoprolol, Crestor 6) BETTE - not compliant with CPAP - will order 02 HS 7) Hypomagnesemia - received Mg Full code - Lovenox prophylaxis Admission and Anticipated Discharge Date Admission Date: April 04, 2021 Subjective 66 yo male reports no new symptoms. Review of Systems Review of Systems: All systems reviewed & are unremarkable except as noted in HPI & below Physical Exam Physical Exam: General: AAO x 3, no distress ENT: No erythema or exudates, no thrush Eyes: LOW, EOMI Head and neck: Normocephalic, atraumatic, No JVD, neck is supple. Chest/heart: Nontender, S1,2, RRR, no murmurs, no gallops Lungs: CTAB, no wheezing or crackles Abdomen: Nontender, nondistended, BS+ Neuro: AAO x 3, speech is clear, no unilateral weakness or loss of sensation, coordination intact Musculoskeletal: No joint inflammation, muscle tenderness, FROM Skin: No acute rashes or ulcers Extremities: No clubbing, cyanosis, edema Results & Data Results & Data ([facility]) Vital Signs (Past 12 Hours) Vital Signs Temp Pulse Pulse Resp BP Pulse Ox 04/05/21 19:06 65 04/05/21 15:54 36.6 C 67 16 111/71 93 04/05/21 11:56 36.6 C 71 18 102/58 L 91 PG Care Time/CCT Total # of Minutes Spent Total Time Spent with Patient: Total time spent is greater than 50% in coordination of care (as documented) at patient's floor/unit and/or counseling patient: Coding Level of Care Code 68091 Subseq Hosp Care Lvl 2 Diagnoses Congestive heart failure I50.9 Heart failure chronicity: acute on chronic Heart failure type: unspecified (1) Congestive heart failure Heart failure chronicity: acute on chronic Heart failure type: unspecified Qualified Code(s): I50.9 - Heart failure, unspecified
[2021-04-05] MEDS: AMITRIPTYLINE HCL 50 MG TAB PO SCH (21:53)
[2021-04-06] MEDS: INSULIN ASPART 100 UNITS/ML 3 ML PEN SC SCH ×4 (07:51→20:14)
[2021-04-06] MEDS: cilostazoL 100 MG TAB PO SCH ×2 (07:52→20:31)
[2021-04-06] MEDS: ASPIRIN 81 MG ECTAB PO SCH (07:52)
[2021-04-06] MEDS: METOPROLOL SUCC 50MG EXT REL TAB PO SCH (07:52)
[2021-04-06] MEDS: MAGNESIUM OXIDE 400 MG TAB PO SCH (07:52)
[2021-04-06] MEDS: ROSUVASTATIN CALCIUM 10 MG TAB PO SCH (07:52)
[2021-04-06 08:33] LABS: Hemoglobin 13.6 g/dL (14.0-18.0); Mean Corpuscular Hemoglobin 30.4 pg (25-34); Mean Corpuscular Hgb Conc 32.4 g/dL (32-36); Mean Corpuscular Volume 93.8 fL (80-100); Mean Platelet Volume 10.7 fL (7.4-10.4); Platelet Count 227 K/uL (130-400); RDW Coefficient of Variation 14.2 % (11.5-14.5); RDW Standard Deviation 48.6 fL (36.4-46.3); Red Blood Count 4.48 M/uL (4.7-6.1); White Blood Count 9.04 K/uL (4.8-10.8)
[2021-04-06 08:41] LABS: BUN Creatinine Ratio 21.3 (10-20); Calcium 8.5 mg/dl (8.5-10.1); Creatinine Clr Calc Pharmacy 82.7 ml/min; Est GFR (African American) 84.3 ml/min; Est GFR (Non-African American) 72.8 ml/min; Magnesium 2.4 mg/dl (1.8-2.4); Potassium 4.5 mmol/L (3.5-5.1)
--- NOTE | 2021-04-06 09:01 | Pulmonology Progress Note ---
Date of Service April 06, 2021 Assessment & Plan (1) Pneumonia: (2) Acute respiratory failure with hypoxia: (3) Abnormal chest CT: Plan: Chest 04/02/2021 personally reviewed: Left upper lobe atelectasis At the uptake of the left upper lobe there is a calcified 8 mm opacity. Foreign body cannot be ruled out Dependent atelectasis right lower lobe --Abnormal chest CT Patient has atelectasis of the left upper lobe with a calcified 8 mm opacity at the takeoff Postobstructive pneumonia cannot be ruled out Plan would be to have a bronchoscopy done --Acute hypoxic respiratory failure Likely secondary to atelectasis of the left upper lobe BNP 16 COVID-19 negative He does have a eosinophilia with eosinophil count 760 --Ex-smoker 35 years smoking history, quit 20 years ago Records reviewed abstinence from smoking PFTs as an outpatient Plan: For bronchoscopy today. Consent in the chart. Continue with antibiotics Please note the above document was generated using voice recognition software. It may contain grammatical, syntax or spelling errors.Any formal questions or concerns about the content, text or information contained within the body of this dictation should be directly addressed to the provider for clarification. Admission and Anticipated Discharge Date Admission Date: April 04, 2021 Subjective Seen in family bedside. No acute distress, no adverse events overnight. Patient stated he is feeling better compared to when he came to the hospital. Shortness of breath improved. No cough. Does not bring up any phlegm. Denies any chest pain Good appetite. No headache, no nausea, no Review of Systems Review of Systems: All systems reviewed & are unremarkable except as noted in Subjective Physical Exam Physical Exam: Constitutional: No acute distress HEENT: EOMI, PERRLA Respiratory system: Decreased air entry bilaterally, no wheeze, no rhonchi, no crackles CVS: S1-S2 positive, no murmurs or gallops Abdomen: Soft, nontender, nondistended, positive bowel sounds x4, obese Extremities: +2 pulses bilaterally radialis/ dorsalis pedis, no cyanosis, no edema Neuro: Awake alert oriented x3 Psych: Normal mood and affect G/U: No Choi Skin: no rashes, warm and dry Lymphatic: no cervical or axillary lymphadenopathy Results & Data Results & Data ([facility]) Vital Signs (Past 12 Hours) Vital Signs Temp Pulse Pulse Resp BP Pulse Ox 04/06/21 07:00 36.8 C 71 18 128/78 93 04/06/21 03:05 36.6 C 74 18 130/76 91 04/06/21 02:16 69 04/05/21 23:00 36.6 C 68 18 124/75 94 04/06/21 07:51 04/06/21 07:51 PG Care Time/CCT Total # of Minutes Spent Total Time Spent with Patient: Total time spent is greater than 50% in coordination of care (as documented) at patient's floor/unit and/or counseling patient: Coding Level of Care Code 75365 Subseq Hosp Care Lvl 3 Diagnoses Pneumonia J18.9 Acute respiratory failure with hypoxia J96.[address] R93.89
[2021-04-06] MEDS ORDERED: MIDAZOLAM HCL 5 MG/ML 1 ML VIAL ONE ×2 (09:28→09:33)
[2021-04-06] MEDS ORDERED: fentaNYL citrate 100 MCG/2 ML VIAL ONE ×2 (09:28→09:34)
--- NOTE | 2021-04-06 10:09 | Pre Anesthesia Assessment ---
Date of Service April 06, 2021 Pre Sedation Assessment Vital Signs Temp Pulse Pulse Resp BP Pulse Ox 04/06/21 09:51 68 18 130/83 100 04/06/21 07:00 36.8 C 71 18 128/78 93 04/06/21 03:05 36.6 C 74 18 130/76 91 04/06/21 02:16 69 04/05/21 23:00 36.6 C 68 18 124/75 94 04/05/21 19:06 65 04/05/21 19:00 36.7 C 70 18 115/72 95 04/05/21 15:54 36.6 C 67 16 111/71 93 04/05/21 11:56 36.6 C 71 18 102/58 L 91 Pre-Sedation Airway Assessment Smoking Status: Never smoker Hx Sleep Apnea: Yes Short, Thick Neck: Yes Thyromental Distance: > or= 3.5 Finger Breadths Oral Cavity: + WNL Mallampati Class: I ASA: ASA2 NPO Status Date of Last Intake of Fluids: 04/06/21 Time of Last Intake of Fluids: 07:30 Last Oral Intake of Fluids Comment: sips with meds Date of Last Intake of Solid Food: 04/06/21 Time of Last Intake of Solid Foods: 00:00 Procedure Planning Contraindications for Sedation: none Current Medications Reviewed: Yes Notes The planned sedation has been discussed with the patient. Informed Consent was obtained. I have identified the patient, determined the appropriateness of sedation and have assessed the patient immediately prior to the procedure. All medicine(s) and interventions are by my order.
--- NOTE | 2021-04-06 10:42 | Procedure Note ---
Procedure Note Date of Service April 06, 2021 Note PREOPERATIVE DIAGNOSIS: Left upper lobe obstructive lesion POSTOPERATIVE DIAGNOSIS: Left upper lobe endobronchial polyp/lesion PROCEDURE PERFORMED: Flexible fiberoptic bronchoscopy with transbronchial biopsies and endobronchial forceps COMPLICATIONS: None. INDICATION: Rule out malignancy PROCEDURE: After obtaining an informed consent, the patient was brought to the Bronchoscopy Suite. The patient had appropriate oxygen, blood pressure, heart rate, and respiratory rate monitoring applied and monitored continuously throughout the procedure. Supplemental oxygen via nasal cannula as per nursing records was applied to the nasopharynx with adequate saturations achieved. Topical anesthesia with nebulized 1% lidocaine was achieved. Subsequent to this, the patient was premedicated with 7 mg of midazolam and 125 mcg of fentanyl. Upper Airway: The oropharynx and larynx were well visualized and was otherwise negative There was normal vocal cord motion without masses or lesions. Additional topical anesthesia with 1% lidocaine was applied to the trachea and sobia. There was dynamic compression/collapse of the airways on exhalation The trachea appeared normal.The bronchoscope was then advanced through the sobia, which was sharp. The scope was then advanced into the right main stem and each segment, subsegement in the right upper lobe, right middle lobe and right lower lobe were visualized. There was minimal amount of grayish-yellow secretion which were suctioned out. There were no other findings including evidence of mass, anatomic distortions, or hemorrhage. The bronchoscope was subsequently withdrawn and advanced into the left mainstem. Right at the takeoff of the left upper lobe there was endobronchial sessile polyp mobile. It was obstructing the whole left upper lobe. The bronchoscope could not be advanced beyond beyond the polyp unfortunately. It was easily mobile on suction Left lower lobe each segments were visualized. There was no other finding of anatomic distortion or hemorrhage in the left lower lobe. There was minimal amount of clear secretion which were suctioned out. The bronchoscope was then re-advanced into the left upper lobe and multiple endobronchial biopsies were taken of the polyp. Needle biopsies were also performed of the same endobronchial polyp. The bronchoscope was then withdrawn to the mainstem. The area was suctioned clear. The bronchoscope was then withdrawn. The patient tolerated the procedure well without evidence of desaturation or complications. Transbronchial biopsies and endobronchial biopsies were sent for pathology. Recommendations: Follow-up chest x-ray Patient will likely need interventional pulmonary or CT surgery to see if they can remove the polyp based on the pathology. Please note the above document was generated using voice recognition software. It may contain grammatical, syntax or spelling errors.Any formal questions or concerns about the content, text or information contained within the body of this dictation should be directly addressed to the provider for clarification. Coding CPT Codes Sedation/Anesthesia - Sedation/Anesthesia: 85330 Mod Sedation by the same physician;Init15 Min Child Age 5 & Up ([id number]) Sedation/Anesthesia - Sedation/Anesthesia: 75080 Mod Sedation by the same physician; Ea [id number] Minutes ([id number]) Pulmonary/Thoracic - Pulmonary and Thoracic: 24374 Bronchoscopy w/ needle bx ([id number]) Pulmonary/Thoracic - Pulmonary and Thoracic: 91015 Bronchoscopy w bronchial or endobronchial bx ([id number]) [facility] [place]Charges) Pulmonary/Thoracic Procedure 1: Pulmonary and Thoracic: 75494 Bronchoscopy w/ needle bx Procedure 2: Pulmonary and Thoracic: 86638 Bronchoscopy w bronchial or endobronchial bx Sedation/Anesthesia Procedure 1: Sedation/Anesthesia: 62955 Mod Sedation by the same physician;Init15 Min Child Age 5 & Up Total Sedation Time (minutes): 26 Procedure 2: Sedation/Anesthesia: 55585 Mod Sedation by the same physician; Ea [id number] Minutes Total Sedation Time (minutes): 26
--- NOTE | 2021-04-06 10:59 | Post Anesthesia Assessment ---
Date of Service April 06, 2021 Post Sedation Assessment Vital Signs Temp Pulse Pulse Resp BP Pulse Ox 04/06/21 10:51 92 H 16 120/61 94 04/06/21 10:46 90 16 122/48 L 96 04/06/21 10:41 97 H 16 141/74 H 97 04/06/21 10:36 106 H 12 134/97 96 04/06/21 10:35 100 H 18 157/83 H 94 04/06/21 10:30 91 H 12 141/90 H 97 04/06/21 10:25 88 12 114/75 97 04/06/21 10:20 90 18 123/87 94 04/06/21 10:15 68 18 126/86 99 04/06/21 10:10 68 18 130/80 98 04/06/21 09:51 68 18 130/83 100 04/06/21 07:00 36.8 C 71 18 128/78 93 04/06/21 03:05 36.6 C 74 18 130/76 91 04/06/21 02:16 69 04/05/21 23:00 36.6 C 68 18 124/75 94 04/05/21 19:06 65 04/05/21 19:00 36.7 C 70 18 115/72 95 04/05/21 15:54 36.6 C 67 16 111/71 93 04/05/21 11:56 36.6 C 71 18 102/58 L 91 Recovery Score Activity: Moves 4 extremities Respiration: Deep Breath/Cough Circulation: +/-20% PreAnes Value Consciousness: Arouseable (by name) Oxygen Saturation: > 92% On Room Air Post Anesthesia Score: 9 Discharge Sedation Level of Care: Fast Track Phase II Post Sedation Plan On clinical assessment, the patient appears to have tolerated the sedation without complications. Patient is recovering as anticipated. Patient will continue to be monitored by nursing and may be discharged when sed ation discharge criteria are met per below protocol. Upon Completions of procedure up to 15 minutes continue every 5 minute vital signs and the P.A.R. score; then discharge to a Phase I or Fast Track to Phase II per the following guidelines: * Discharge Patient to appropriate Phase II area if PAR is 8 or greater or return to pre- procedure baseline. The post - procedure orders will be as directed. * If PAR score is less than 8 or not return to pre-procedure baseline then patient will follow Phase I monitoring till PAR is reached for Phase II. The Phase I may be done in procedure room or may call to secure a Phase I area. * If naloxone or flumazenil are used for reversal, hold in Phase I for continued monitoring from when last reversal dose was given for a minimum of 60 minutes or longer pending the nurse and/or physician discretion of patient condition before discharge to Phase II. Please call the Sedation Physician to re-evaluate and complete post-note for discharge to Phase II area. Do NOT discharge from procedure sedation or Phase 1 until post- sedation evaluation note is complete by procedure /sedation MD Sedation Discharge Instructions to be given to the patient at discharge to home.
--- NOTE | 2021-04-06 11:15 | XRay Report ---
XR chest 1V portable CLINICAL HISTORY: s/p bronch COMPARISON STUDY: April 02, 2021 FINDINGS: No pneumothorax. Minimal blunting of the left costophrenic angle is seen and might represent trace left pleural effusi on. Mild interval worsening of linear densities at the right base which could represent atelectasis o r infiltrate. Interval worsening of patchy airspace opacities within left mid to lower lung which could represent i nfiltrative process versus other etiology. Few areas of peribronchial cuffing is seen at the right infrahilar region. Cardiomediastinal silhouette is prominent and partially obscured by airspace opacities on the left. No significant pulmonary vascular congestion.. Osseous structures: unremarkable IMPRESSION: 1. Interval worsening of airspace opacities at the left lower lung region which could represent pneu monia versus other etiology. Possible trace left pleural effusion. 2. Interval worsening of linear densities at the right base which might represent atelectasis. 3. Peribronchial cuffing is seen on the right which could represent pneumonia or pulmonary edema. 4. Obscured cardiac silhouette on the left. 5. The rest of findings as above. ACT 112: Negative or not required by law. The above report was generated using voice recognition software. It may contain grammatical, syntax o r spelling errors. Electronically signed by: Paula Marie DO 04/06/2021 11:14 AM
--- NOTE | 2021-04-06 14:30 | Hospitalist Progress Note ---
Date of Service April 06, 2021 Assessment & Plan (1) Abnormal pulmonary finding: Plan: Believe his presentation shortness of breath was/is due to pulmonary occlusion by a pulmonary polyp which was suctioned back on bronchoscopy on 04/06/[address] Day. Notably, do NOT think this was due to CHF as originally thought. - Continue nasal cannula as needed - Continue abx per pulmonary (2) Pneumonia: Plan: Obstructive pneumonia, POA. - Abx as above (3) CKD (chronic kidney disease) stage 2, GFR 60-89 ml/min: Plan: Acute kidney injury on CKD, Stage II. Cr as high as 1.46, with baseline Cr ~1.0 - 1.1. - Presently back to baseline. - Monitor (4) Acute respiratory failure with hypoxia: Plan: Presumed to be due to atelectasis from the occlusion, though still needing some O2. Possibly due to obesity hypoventilation as well. - O2 PRN (5) Hypertension: Plan: BP presently 115/75. - Continue beta-shi (6) Coronary artery disease: Plan: No indication of ACS at this time. - Continue ASA, Pletal, beta-shi, and statin (7) Type 2 diabetes mellitus: Plan: No A1c in chart. - Sliding scale insulin - Sugars here not too bad considering at home he is on Levemir 80 units BID, and here we have him on no long-acting. Likely significantly affected by diet. Blood sugars 145 - 240 here. (8) BETTE (obstructive sleep apnea): Plan: Per notes, does not use CPAP at home. - Nocturnal O2 here (9) DVT prophylaxis: Plan: Lovenox 40 mg SQ daily Admission and Anticipated Discharge Date Admission Date: April 04, 2021 Subjective Doing well today. Less shortness of breath. Procedure went well and he feels improved overall. Reports no fevers/chills, chest pain, abdominal pain, nausea, or vomiting. Physical Exam Constitutional: WD/WN, vitals as above Eyes: EOM intact bilaterally; no conjunctival abnormality ENMT: external ear and nose normal, oropharynx normal Neck: trachea midline, no thyromegaly normal visual inspection Respiratory: normal respiratory effort, lungs clear to auscultation no respiratory distress Cardiovascular: RRR, no murmur, no edema Gastrointestinal (Abdomen): Inspection/Auscultation: abdomen normal to inspection; abdomen not distended Musculoskeletal: no cyanosis or clubbing, extremities motor strength 5/5 Skin: no rashes, warm and dry Neurologic: moves all extremities and awake Psychiatric: Orientation: alert, oriented to person and cooperative Results & Data Results & Data ([facility]) Vital Signs (Past 12 Hours) Vital Signs Temp Pulse Pulse Resp BP Pulse Ox 04/06/21 13:22 36.6 C 70 18 114/76 94 04/06/21 12:01 36.6 C 76 19 122/85 90 04/06/21 11:35 36.5 C 76 19 137/82 90 04/06/21 11:26 72 04/06/21 11:25 36.4 C L 80 19 134/81 91 04/06/21 11:02 90 16 112/72 94 04/06/21 10:56 92 H 16 120/81 94 04/06/21 10:51 92 H 16 120/61 94 04/06/21 10:46 90 16 122/48 L 96 04/06/21 10:41 97 H 16 141/74 H 97 04/06/21 10:36 106 H 12 134/97 96 04/06/21 10:35 100 H 18 157/83 H 94 04/06/21 10:30 91 H 12 141/90 H 97 04/06/21 10:25 88 12 114/75 97 04/06/21 10:20 90 18 123/87 94 04/06/21 10:15 68 18 126/86 99 04/06/21 10:10 68 18 130/80 98 04/06/21 09:51 68 18 130/83 100 04/06/21 07:00 36.8 C 71 18 128/78 93 04/06/21 03:05 36.6 C 74 18 130/76 91 PG Care Time/CCT Total # of Minutes Spent Total Time Spent with Patient: Total time spent is greater than 50% in coordination of care (as documented) at patient's floor/unit and/or counseling patient: Coding Level of Care Code 77049 Subseq Hosp Care Lvl 3 Diagnoses Abnormal pulmonary finding R09.89 Acute respiratory failure with hypoxia J96.01 Pneumonia J18.9 Hypertension I10 Coronary artery disease I25.10 Type 2 diabetes mellitus E11.9 BETTE (obstructive sleep apnea) G47.33 DVT prophylaxis Z29.9 CKD (chronic kidney disease) stage 2, GFR 60-89 ml/min N18.2
[2021-04-06] MEDS: cefTRIAXone SODIUM 2,000 MG in DEXTROSE 5% 50 ML IV SCH (16:14)
[2021-04-06] MEDS: AMITRIPTYLINE HCL 50 MG TAB PO SCH (20:31)
--- NOTE | 2021-04-07 07:56 | Pulmonology Progress Note ---
Date of Service April 07, 2021 Assessment & Plan (1) Pneumonia: (2) Acute respiratory failure with hypoxia: (3) Abnormal chest CT: Plan: Chest 04/02/2021 personally reviewed: Left upper lobe atelectasis At the uptake of the left upper lobe there is a calcified 8 mm opacity. Foreign body cannot be ruled out Dependent atelectasis right lower lobe --Abnormal chest CT Patient has atelectasis of the left upper lobe with a calcified 8 mm opacity at the takeoff Postobstructive pneumonia cannot be ruled out S/p bronchoscopy 04/06/2021 which showed sessile mobile polyp right at the takeoff of the left upper lobe --Acute hypoxic respiratory failure Likely secondary to atelectasis of the left upper lobe BNP 16 COVID-19 negative He does have a eosinophilia with eosinophil count 760 --Ex-smoker 35 years smoking history, quit 20 years ago Records reviewed abstinence from smoking PFTs as an outpatient Plan: Follow-up cytology. Patient is to follow-up with interventional pulmonary or CT surgery to see if they can take the left upper lobe polyp out Recommend to stop to be done today to see if the patient needs oxygen at home Outpatient polysomnography will be helpful for the patient Would recommend discharging the patient on Anoro Outpatient pulmonary follow-up will be beneficial Case discussed with Dr. Spain Please note the above document was generated using voice recognition software. It may contain grammatical, syntax or spelling errors.Any formal questions or concerns about the content, text or information contained within the body of this dictation should be directly addressed to the provider for clarification. Admission and Anticipated Discharge Date Admission Date: April 04, 2021 Subjective Patient seen and examined at bedside. No acute distress, no adverse events overnight. Denies any chest pain, no headache, no nausea, no vomiting. Noticeable is improved. Denies any hemoptysis. Review of Systems Review of Systems: All systems reviewed & are unremarkable except as noted in Subjective Physical Exam Physical Exam: Constitutional: No acute distress HEENT: EOMI, PERRLA Respiratory system: Decreased air entry bilaterally, no wheeze, no rhonchi, positive crackles bilateral lower lobes more on the left lower CVS: S1-S2 positive, no murmurs or gallops Abdomen: Soft, nontender, nondistended, positive bowel sounds x4, obese Extremities: +2 pulses bilaterally radialis/ dorsalis pedis, no cyanosis, no edema Neuro: Awake alert oriented x3 Psych: Normal mood and affect G/U: No Choi Skin: no rashes, warm and dry Lymphatic: no cervical or axillary lymphadenopathy Results & Data Results & Data ([facility]) Vital Signs (Past 12 Hours) Vital Signs Temp Pulse Pulse Resp BP Pulse Ox 04/07/21 07:37 36.8 C 69 16 128/78 95 04/07/21 03:40 36.4 C L 65 18 127/74 91 04/06/21 23:51 65 04/06/21 22:49 36.9 C 68 20 97/53 L 95 04/06/21 07:51 04/06/21 07:51 PG Care Time/CCT Total # of Minutes Spent Total Time Spent with Patient: Total time spent is greater than 50% in coordination of care (as documented) at patient's floor/unit and/or counseling patient: Coding Level of Care Code 75757 Subseq Hosp Care Lvl 2 Diagnoses Pneumonia J18.9 Acute respiratory failure with hypoxia J96.[address] R93.89
[2021-04-07 08:03] LABS: Hematocrit (blood only) 41.9 % (42-52); Hemoglobin 13.4 g/dL (14.0-18.0); Mean Corpuscular Hemoglobin 29.9 pg (25-34); Mean Corpuscular Volume 93.5 fL (80-100); Mean Platelet Volume 10.5 fL (7.4-10.4); Platelet Count 209 K/uL (130-400); RDW Coefficient of Variation 14.2 % (11.5-14.5); RDW Standard Deviation 48.5 fL (36.4-46.3); Red Blood Count 4.48 M/uL (4.7-6.1); White Blood Count 8.46 K/uL (4.8-10.8)
[2021-04-07] MEDS: INSULIN ASPART 100 UNITS/ML 3 ML PEN SC SCH ×2 (08:06→11:52)
[2021-04-07] MEDS: cilostazoL 100 MG TAB PO SCH (08:07)
[2021-04-07] MEDS: ROSUVASTATIN CALCIUM 10 MG TAB PO SCH (08:07)
[2021-04-07] MEDS: ASPIRIN 81 MG ECTAB PO SCH (08:07)
[2021-04-07] MEDS: METOPROLOL SUCC 50MG EXT REL TAB PO SCH (08:07)
[2021-04-07] MEDS: MAGNESIUM OXIDE 400 MG TAB PO SCH (08:07)
[2021-04-07 08:37] LABS: BUN Creatinine Ratio 19.5 (10-20); Calcium 8.3 mg/dl (8.5-10.1); Creatinine Clr Calc Pharmacy 80.2 ml/min; Est GFR (African American) 81.5 ml/min; Est GFR (Non-African American) 70.4 ml/min; Magnesium 2.3 mg/dl (1.8-2.4); Potassium 4.6 mmol/L (3.5-5.1)
--- NOTE | 2021-04-07 08:54 | XRay Report ---
XR chest 1V portable CLINICAL HISTORY: f/u COMPARISON STUDY: Chest CT April 02, 2021. Chest radiograph April 06, 2021. FINDINGS: Lung volumes are mildly diminished. There is no pneumothorax. Cardiomegaly is unchanged. Ri ght basilar opacity favors atelectasis. There is hazy left basilar opacity. Left suprahilar opacity h as likely slightly improved since initial chest radiograph. There is no evidence for pulmonary edema IMPRESSION: 1. No pneumothorax. 2. Mild left basilar opacity which may reflect an infectious process or atelectasis. Right basilar op acity favors atelectasis. 3. Suspected improvement in left upper lobe airspace opacity since initial chest radiograph. ACT 112: Negative or not required by law. Electronically signed by: Thomas Monte M.D. 04/07/2021 8:53 AM
--- NOTE | 2021-04-07 14:49 | Discharge Summary ---
Date of Service April 07, 2021 Admission HPI Per Admitting Provider 66 y/o M Hx HTN, HLD, DM II, PAD, CAD, CHF, obese, BETTE. Presents with progressive shortness of breath for the past few weeks. He denies CP, a cough or fevers. The pt is a poor historian. 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 He states that he is always compliant with his medications however. The pt's 02 saturation was in the mid to high 80s on arrival. A CXR demonstrated vascular congestion. A CTA was obtained as he was tachycardic, and showed an 8mm density in a YASMEEN bronchus with local occlusion. There was no evidence of ischemia on an EKG. Labs were notable for a mag of 1.6 and mild leukocytosis. PMH: 1) HTN 2) HLD 3) IDDM 4) DM II 5) PAD 6) CAD - states he was catheterized twice for CP but did not receive stents 7) CHF - unspecified 8) Obese 9) BETTE - noncompliant with CPAP Surgical: Denies prior surgery Social: Quit smoking . Does not drink alcohol. Retired from [employer]. Family: Mother - multiple CVAs Father - DM Principal Diagnosis Pulmonary polyp causing YASMEEN obstruction and post-obstructive pneumonia Discharge Exam Constitutional WD/WN, vitals as above Eyes EOM intact bilaterally; no conjunctival abnormality ENMT external ear and nose normal, oropharynx normal Neck trachea midline, no thyromegaly normal visual inspection Respiratory normal respiratory effort, lungs clear to auscultation no respiratory distress Cardiovascular RRR, no murmur, no edema Gastrointestinal (Abdomen) Inspection/Auscultation: abdomen normal to inspection; abdomen not distended Musculoskeletal no cyanosis or clubbing, extremities motor strength 5/5 Skin no rashes, warm and dry Neurologic moves all extremities and awake Psychiatric Orientation: alert, oriented to person and cooperative Discharge Data Allergies Allergy/AdvReac Type Severity Reaction Status Date / Time empagliflozin Allergy Intermediate Nausea, Unverified 04/02/21 16:57 [From Jardiance] Dizziness Consultations 04/02/21 16:37 ED Decision to Admit Stat 04/02/21 23:22 Consult Pulmonology Routine Procedures Performed Operation Date: 04/06/21 10:00 Actual Procedures p Bronchoscopy (Bilateral) - Zheng Molina MD Ordered Studies 04/02/21 15:11 CT angio chest PE protocol Stat Hospital Course (1) Abnormal pulmonary finding: Believe his presentation shortness of breath was/is due to pulmonary occlusion by a pulmonary polyp which was suctioned back on bronchoscopy on 04/06/[address] Molina. Notably, do NOT think this was due to CHF as originally thought. - Continue Augmentin for 4 more days to complete empiric therapy of obstructive pneumonia. - Discharged on 2L NC with exertion which he can hopefully wean from over the coming weeks. - Will follow-up with Dr. Molina in 1-2 weeks to discuss biopsy results and referral to interventional pulmonology vs. thoracic surgery for YASMEEN resection. (2) Pneumonia: Obstructive pneumonia, POA. - Abx as above (3) CKD (chronic kidney disease) stage 2, GFR 60-89 ml/min: Acute kidney injury on CKD, Stage II. Cr as high as 1.46, with baseline Cr ~1.0 - 1.1. - Presently back to baseline. - Monitor (4) Acute respiratory failure with hypoxia: Presumed to be due to atelectasis from the occlusion, though still needing some O2. Possibly due to obesity hypoventilation as well. - O2 PRN (5) Hypertension: BP presently 115/75. - Continue beta-shi (6) Coronary artery disease: No indication of ACS at this time. - Continue ASA, Pletal, beta-shi, and statin (7) Type 2 diabetes mellitus: No A1c in chart. - Sliding scale insulin - Sugars here not too bad considering at home he is on Levemir 80 units BID, and here we have him on no long-acting. Likely significantly affected by diet. Blood sugars 145 - 240 here. - Discharged with recs to carefully restart his home long-acting insulin. This appears heavily dietary mediated. (8) BETTE (obstructive sleep apnea): Per notes, does not use CPAP at home. - Nocturnal O2 here (9) DVT prophylaxis: Lovenox 40 mg SQ daily Total Time Total Time Spent Total Time Spent (In Minutes): 35 Discharge Plan Discharge Items Patient Disposition: Home - Self-Care Reason For Visit: SOB Discharge Diagnosis: Block left upper lung from a small lung polyp Pneumonia behind the blocked area Activity: Resume your previous activity Non-emergency contact: Primary Care Provider and Wastewater Analyst Lab Analyst Call non-emergency contact if: your symptoms worsen and your temperature is above 101 Follow-up/Referrals: Zheng Molina MD [Physician] - 05/06/21 3:00 pm (As you are to see Dr. Molina next week to discuss the results of the biopsies he took and to discuss next steps for this polyp, the office will call you with an earlier date and time.) PCP,NO [Primary Care Provider] - Diet: Carb Consistent or DM2 and Heart Healthy Addtl Attending Provider Instructions: Mr. Monte, You were admitted to the hospital with shortness of breath. We believe this happened because you have a small lung polyp that blocked off a part of your lungs (the left upper lobe). This caused part of your lung to collapse. Luckily, Dr. Day was able to pull the polyp back and open up that part of your lung. We have you on some antibiotics because there was some concern that infection had built up in the collapsed lung. Please see Dr. Day next week to discuss the results of the biopsies he took and to discuss next steps for this polyp. He wasn't able to fully remove it, and you may need to go to [place] or [facility] in [place] to have a specialist remove this polyp. There is a chance it could block that area of lung again, but hopefully it will not cause any problem before you are able to have it removed. Please finish the antibiotic course as prescribed. Please call Dr. Day's office with any fevers, chills, further shortness of breath, or other concerns. Finally, we did not give you long-acting insulin here in the hospital. Likely, your diet in the hospital has fewer carbohydrates at home. Please restart your long-acting insulin dose carefully. Consider giving yourself a slightly lower dose tonight (say 50 units instead of your prior 80 units), just to be sure you don't dip too low. Check your sugars 4 times per day for the next 2-3 days at least to be sure your sugars are staying in their usual home range. Pending Studies at Discharge: Yes Studies:: Pathology (biopsy) report Stand-Alone Forms: [facility], Smoking Cessation Medications and DC Order Prescriptions: New amoxicillin-pot clavulanate [Augmentin] 875-125 mg tablet 1 tab PO BID Qty: 8 RF: 0 Continued furosemide 40 mg tablet 40 mg PO QAM RF: 0 cilostazol 100 mg tablet 100 mg PO BID RF: 0 glyburide 5 mg tablet 5 mg PO BID RF: 0 aspirin 81 mg Tablet,Delayed Release (Dr/Ec) 81 mg PO QAM RF: 0 amitriptyline 50 mg tablet 50 mg PO HS RF: 0 rosuvastatin [Crestor] 10 mg tablet 10 mg PO DAILY RF: 0 Levemir FlexTouch U-100 Insuln 100 unit/mL (3 mL) insulin pen 80 unit SUBCUT BID RF: 0 metoprolol succinate 50 mg tablet extended release 24 hr 50 mg PO QAM RF: 0 metformin 1,000 mg tablet 1,000 mg PO BID RF: 0 nitroglycerin 0.4 mg Tablet, Sublingual 0.4 mg buccal DIRECTED PRN (Reason: Chest Pain) RF: 0 lisinopril 30 mg tablet 30 mg PO QAM RF: 0 insulin aspart U-100 [Novolog Flexpen U-100 Insulin] 100 unit/mL (3 mL) Insulin Pen 6 unit SUBCUT AC RF: 0 Discharge Orders: Discharge Order (Routine); Ordered 04/07/21 Ordered By: Jose Spain Admission Data Admit Date/Time: 04/04/21 10:41 Attending Provider: Jose Spain Admit Provider: Haile Cleveland Primary Care Provider: PCP,NO Other Providers: Zheng Molina ; Jose Spain Other Interventions: Discharge Summary Assessment (RN) Last Done: 04/07/21 12:46 Coding Level of Care Code D/C DAY MANAGEMENT >30 MINS Diagnoses Abnormal pulmonary finding R09.89 Pneumonia J18.9 CKD (chronic kidney disease) stage 2, GFR 60-89 ml/min N18.2 Acute respiratory failure with hypoxia J96.01 Hypertension I10 Coronary artery disease I25.10 Type 2 diabetes mellitus E11.9 BETTE (obstructive sleep apnea) G47.33 DVT prophylaxis Z29.9
== END 2021-04-07 13:53 | disposition home or self-care (01) | DRG 166 ==
LOC: 2S 12:03 → ED 12:03 → SUATTDRO 19:12 → 2S 22:45 → SUATTDRO 04-04 10:41 → 2N 04-04 10:42
DX: E78.5 Hyperlipidemia, unspecified; N17.9 Acute kidney failure, unspecified; Z91.19 Patient's noncompliance with other medical treatment and regimen; E83.42 Hypomagnesemia; R09.02 Hypoxemia; I27.20 Pulmonary hypertension, unspecified; Y92.009 Unspecified place in unspecified non-institutional (private) residence as the place of occurrence of the external cause; E66.9 Obesity, unspecified; N18.2 Chronic kidney disease, stage 2 (mild); Z79.82 Long term (current) use of aspirin; G47.33 Obstructive sleep apnea (adult) (pediatric); I50.9 Heart failure, unspecified; D14.32 Benign neoplasm of left bronchus and lung; J96.01 Acute respiratory failure with hypoxia; E11.40 Type 2 diabetes mellitus with diabetic neuropathy, unspecified; I13.0 Hypertensive heart and chronic kidney disease with heart failure and stage 1 through stage 4 chronic kidney disease, or unspecified chronic kidney disease; Z87.891 Personal history of nicotine dependence; T17.590A Other foreign object in bronchus causing asphyxiation, initial encounter; Z79.4 Long term (current) use of insulin; J98.11 Atelectasis; Z68.36 Body mass index [BMI] 36.0-36.9, adult; J18.9 Pneumonia, unspecified organism; I25.10 Atherosclerotic heart disease of native coronary artery without angina pectoris

== ENCOUNTER 2023-12-07 14:38 | Inpatient (IN) ==
--- NOTE | 2023-12-07 15:10 | Emergency Department Note ---
Impression & Plan Occlusion of right popliteal artery, PAD (peripheral artery disease), Cellulitis of foot, right, Acute hyponatremia, Acute hyperglycemia ED Provider Note NAME: LILLIAM SAEED AGE: 68 SEX: M : 1955 ARRIVES VIA: Walk-In INFORMANT: Patient, ED PROVIDER(S): Ivan Ramos DO CHIEF COMPLAINT: Leg pain HPI: The patient is a 68-year-old male who was sent to the emergency department from the wound care center for an evaluation of right foot pain. The patient's noticed right lower extremity pain for the last 2 weeks. He does have a history of recent popliteal bypass that was done by vascular surgery at our facility. The patient denies having any fever. He denies having any falls. He was not able to obtain a pulse at the wound care center and he was sent to our emergency department for further evaluation ROS: See above HPI for pertinent positives & negatives. A total of 10 systems reviewed and were otherwise negative. PAST MEDICAL HISTORY: See Below PAST SURGICAL HISTORY: See Below FAMILY HISTORY: See Below SOCIAL HISTORY: See Below HOME MEDICATIONS: See Below ALLERGIES: See Below VITALS: See Below PHYSICAL EXAMINATION: GENERAL: Patient is awake alert in no acute distress patient is resting comfortably and showing no signs of anxiety EYES: The conjunctivae are clear. The pupils are round and reactive. EARS, NOSE, MOUTH AND THROAT: The nose is without any evidence of any deformity. NECK: The neck is nontender and supple. RESPIRATORY: Normal respiratory effort is noted there is no evidence of wheezing rhonchi or rales CARDIOVASCULAR: Regular rate and rhythm noted there no murmurs rubs or gallops normal S1 normal S2. GASTROINTESTINAL: The abdomen is soft. Abdomen is nontender. MUSCULOSKELETAL/EXTREMITIES: There is no evidence of gross deformity full range of motion is noted in the hips and shoulders. SKIN: There is erythema and pedal edema noted on the right. There are areas of previous partial amputation. There is erythema on the dorsum of the foot. Skin is cold. There is discoloration on the dorsum of the foot. Pulses in the groins are symmetric. Skin is warm and dry to the level of the ankle. NEUROLOGIC: Patient is awake alert and oriented x3 MEDICAL DECISION MAKING: The patient is a 68-year-old male who presented to the emergency department for an evaluation of right foot swelling and discoloration. The patient had a popliteal artery stent in October of this year. The patient started noticing pain and discoloration over the course the last few weeks. He was seen at the wound care center. He was sent to the emergency department today from the wound care center. I discussed the patient's laboratory and radiographic studies with him. He was treated with IV fluids and IV pain medication. On reevaluation he was somewhat improved. The patient's foot does appear to show signs of infection. Clinically there is ulceration as well as erythema streaking up the right ankle. The patient was found to have arterial occlusion on CT angiography of the lower extremity. He was started on heparin. He was started on multiple antibiotics in the emergency department. I discussed the patient's condition with his vascular surgeon. I also discussed his condition with the on-call [facility]. They have agreed to evaluate the patient in the emergency department for further management and disposition. Triage Nursing notes reviewed. Prior medical records reviewed Vital Signs: reviewed and remarkable for tachycardia. Differential diagnosis: DVT, musculoskeletal, infection, joint effusion, trauma, lymphedema, idiopathic, CHF, as well as other pathologies. ER treatment provided: See below Diagnostics interpreted by me: ECG: EKG was obtained in the emergency department. My interpretation is sinus tachycardia at 124 bpm. There were no PVCs noted. Right bundle branch block pattern was noted. This was compared to a tracing from January 12, 2023. No changes were noted Cardiac Monitoring: An order was placed for continuous cardiac monitoring. The monitor shows a rate of 120 bpm with sinus tachycardia. Laboratory studies: As stated above and show below. Imaging studies: See below. Radiographic imaging was reviewed by myself Consultation(s): I discussed this case with Dr. Porter [facility] I discussed this case with Dr. Greenberg who is the patient's primary vascular surgeon. ED COURSE: Procedures: none Critical Care: I have personally spent greater than 55 minutes of critical care time in the direct management of this patient. This includes bedside care, interpretation of diagnostic studies, and testing, discussion with consultants, patient, and family members, and other required patient management activities. This 55 minutes is in excess of all separately billable procedures. 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: No Beliefs That Will Affect Care: None Current Living Situation: Family Current Living Situation Comment: son and daughter in law with the patient How many Children do You have: 5 Feels Safe at Home: Yes Assistive Devices: Cane and Oxygen - Continuous Allergies Allergies Allergy/AdvReac Type Severity Reaction Status Date / Time empagliflozin Allergy Intermediate Nausea, Verified 10/27/23 10:36 [From Arianne] Dizziness Home Meds Home Medications Medication Instructions Recorded Confirmed aspirin 81 mg tablet,delayed 81 mg PO QAM 04/02/21 10/27/23 release furosemide 40 mg tablet 40 mg PO QAM 04/02/21 10/27/23 glyburide 5 mg tablet 5 mg PO BID 04/02/21 10/27/23 insulin aspart U-100 100 unit/mL 6 unit subcut AC 04/02/21 10/27/23 (3 mL) subcutaneous pen (Novolog FlexPen U-100 Insulin aspart) insulin detemir U-100 100 unit/mL 80 unit subcut BID 04/02/21 10/27/23 (3 mL) subcutaneous pen (Levemir FlexTouch U-100 Insulin) lisinopril 30 mg tablet 30 mg PO QAM 04/02/21 10/27/23 metformin 1,000 mg tablet 1,000 mg PO BID 04/02/21 10/27/23 metoprolol succinate 50 mg 50 mg PO QAM 04/02/21 10/27/23 tablet,extended release 24 hr nitroglycerin 0.4 mg sublingual 0.4 mg buccal DIRECTED PRN 04/02/21 10/27/23 tablet Chest Pain rosuvastatin 10 mg tablet (Crestor) 10 mg PO DAILY 04/02/21 10/27/23 cefprozil 250 mg tablet 0 mg TID 01/12/23 10/27/23 clopidogrel 75 mg tablet 75 mg PO DAILY 01/12/23 10/27/23 cyclobenzaprine 5 mg tablet 5 mg PO TID 01/12/23 10/27/23 metronidazole 500 mg tablet 500 mg PO TID 01/12/23 10/27/23 nortriptyline 25 mg capsule 0 mg PO DAILY 01/12/23 10/27/23 pantoprazole 40 mg tablet,delayed 40 mg PO DAILY 01/12/23 10/27/23 release (Protonix) Results & Data (ED) Vital Signs Vital Signs - 24 hr 12/07/23 14:45 12/07/23 15:00 12/07/23 15:01 Temperature 36.7 C Temperature Source Temporal Artery Scan Pulse Rate 127 H 124 H Pulse Rate from SpO2 Sensor 125 H Respiratory Rate 20 21 Respiratory Effort / Characteristics Non-Labored Spontaneous Respiratory Depth Normal Respiratory Pattern Regular Blood Pressure 138/80 127/88 Blood Pressure Mean 99 103 Pulse Oximetry 96 98 Oxygen Delivery Method Room Air Oxygen Flow Rate Sepsis Recent Fever Within 48 Hours No Sepsis New/Unexplained Change in Mental Status N/A Sepsis Action Taken by Nursing No Action Required 12/07/23 15:10 12/07/23 15:20 12/07/23 15:30 Temperature Temperature Source Pulse Rate 124 H 124 H 120 H Pulse Rate from SpO2 Sensor 124 H 125 H 120 H Respiratory Rate 22 22 18 Respiratory Effort / Characteristics Respiratory Depth Respiratory Pattern Blood Pressure Blood Pressure Mean Pulse Oximetry 96 98 98 Oxygen Delivery Method Oxygen Flow Rate Sepsis Recent Fever Within 48 Hours Sepsis New/Unexplained Change in Mental Status Sepsis Action Taken by Nursing 12/07/23 15:31 12/07/23 15:40 12/07/23 15:53 Temperature Temperature Source Pulse Rate Pulse Rate from SpO2 Sensor 127 H 122 H Respiratory Rate Respiratory Effort / Characteristics Respiratory Depth Respiratory Pattern Blood Pressure Blood Pressure Mean Pulse Oximetry 97 94 97 Oxygen Delivery Method Nasal Cannula Oxygen Flow Rate 4 Sepsis Recent Fever Within 48 Hours Sepsis New/Unexplained Change in Mental Status Sepsis Action Taken by Nursing 12/07/23 16:16 12/07/23 16:20 12/07/23 16:21 Temperature Temperature Source Pulse Rate 122 H 120 H 120 H Pulse Rate from SpO2 Sensor 122 H 120 H Respiratory Rate 14 14 Respiratory Effort / Characteristics Respiratory Depth Respiratory Pattern Blood Pressure Blood Pressure Mean Pulse Oximetry 94 96 Oxygen Delivery Method Oxygen Flow Rate Sepsis Recent Fever Within 48 Hours Sepsis New/Unexplained Change in Mental Status Sepsis Action Taken by Nursing 12/07/23 16:30 12/07/23 16:30 12/07/23 16:40 Temperature Temperature Source Pulse Rate 122 H 122 H Pulse Rate from SpO2 Sensor 122 H 123 H Respiratory Rate 20 13 Respiratory Effort / Characteristics Respiratory Depth Respiratory Pattern Blood Pressure 120/84 Blood Pressure Mean 96 Pulse Oximetry 95 97 Oxygen Delivery Method Oxygen Flow Rate Sepsis Recent Fever Within 48 Hours Sepsis New/Unexplained Change in Mental Status Sepsis Action Taken by Detention Medications Current Medication List: was personally reviewed by me Laboratory Data Attestation: I reviewed the patient's lab results. 12/07/23 15:27 12/07/23 15:27 Lab Results 12/07/23 12/07/23 Range/Units 15:27 15:33 WBC 19.56 H (4.8-10.8) K/ul RBC 4.50 L (4.70-6.10) M/uL Hgb 12.0 L (14.0-18.0) g/dl POC Hgb 13.6 L (14.0-18.0) g/dl Hct 38.1 L (42.0-52.0) % POC Hct 40 L (42-52) % MCV 84.7 (80.0-100.0) fL MCH 26.7 (25.0-34.0) pg MCHC 31.5 L (32.0-36.0) g/dL RDW Std Deviation 46.1 (36.4-46.3) fL RDW Coeff of Larry 15.0 H (11.5-14.5) % Plt Count 347 (130-400) K/uL MPV 9.9 (9.4-12.4) fL Immature Gran % (Auto) 0.7 % Neut % (Auto) 81.5 % Lymph % (Auto) 8.6 % Crowley % (Auto) 8.2 % Eos % (Auto) 0.7 % Baso % (Auto) 0.3 % Neut # (Auto) 15.95 H (1.40-6.50) K/uL Lymph # (Auto) 1.68 (1.20-3.40) K/uL Crowley # (Auto) 1.60 H (0.11-0.59) K/uL Eos # (Auto) 0.14 (0.00-0.50) K/uL Baso # (Auto) 0.05 (0.00-0.20) K/uL Immature Gran # (Auto) 0.14 (0.01-0.20) K/uL PT 11.2 (9.0-12.0) Seconds INR 1.0 (0.9-1.1) APTT 30 (21-31) Seconds PTT Ratio 1.1 POC Sodium 130 L (135-144) mmol/L Sodium 131 L (136-145) mmol/L POC Potassium 4.5 (3.3-5.0) mmol/L Potassium 4.6 (3.5-5.1) mmol/L POC Chloride 94 L (101-112) mmol/L Chloride 95 L (98-107) mmol/L Carbon Dioxide 30 (21-32) mmol/L POC Total CO2 27 (24-31) mmol/L Anion Gap 6 (3-11) POC Anion Gap 15.0 L (16-25) mmol/L POC BUN 26 H (7-18) mg/dl BUN 28 H (6-23) mg/dl Creatinine 1.15 (0.6-1.4) mg/dl POC Creatinine 1.2 (0.6-1.3) mg/dl Est Cr Clr Drug Dosing 73.2 ml/min Est GFR ( Amer) 75.4 ml/min Est GFR (Non-Af Amer) 65.0 ml/min BUN/Creatinine Ratio 24.3 H (10-20) Glucose 241 H (70-99(Fasting)) mg/dl POC Glucose (other) 239 H (70-99) mg/dl Calcium 9.4 (8.6-10.3) mg/dl POC Ioniz Calcium Suleiman 1.12 (1.12-1.32) mmol/l Total Bilirubin 0.4 (0.2-1.0) mg/dl AST 10 L (13-39) U/L ALT 8 (7-52) U/L Alkaline Phosphatase 71 (34-104) U/L Troponin I High Sens 13.1 (0-20) pg/ml C-Reactive Protein 10.05 H (0-0.5) mg/dl Total Protein 7.0 (6.0-8.3) gm/dl Albumin 3.9 (3.4-5.0) gm/dl Globulin 3.1 (2.5-4.0) gm/dl Albumin/Globulin Ratio 1.3 (0.9-2) Lipase 14 (11-82) U/L Administered Medications Discontinued Medications Sodium Chloride (Nss) 500 mls @ 999 mls/hr IV .Q31M ONE Stop: 12/07/23 15:38 Last Infusion: 12/07/23 16:24 Dose: Infused Documented By: Admin: 12/07/23 15:33 Dose: 999 mls/hr Documented By: KENN Ioversol (Optiray 320 125ml) 116 ml IV ONCE ONE Stop: 12/07/23 16:14 Last Admin: 12/07/23 16:14 Dose: 116 ml Documented By: UMER Morphine Sulfate (Morphine Sulfate 4 Mg/Ml 1 Ml Carp\Vial) 4 mg IV NOW STA Stop: 12/07/23 15:06 Last Admin: 12/07/23 15:33 Dose: 4 mg Documented By: KENN Ondansetron HCl (Ondansetron Inj 2 Mg/Ml 2 Ml Vial) 4 mg IV NOW STA Stop: 12/07/23 15:06 Last Admin: 12/07/23 15:33 Dose: 4 mg Documented By: KENN Imaging Data Attestation: I personally reviewed and interpreted this imaging study as follows: My Impression: 1 view chest x-ray was obtained in the emergency department. My interpretation is no free air or definite filtrate, final report below. Imaging shows Radiologist's Impression: Chest X-Ray 12/07/23 15:00 XR chest 1V portable HISTORY: 68 years-old Male Chest pain, nonspecific COMPARISON: 01/12/2023 TECHNIQUE: AP view the chest FINDINGS: Cardiac silhouette is enlarged. Pulmonary vascular congestion with interstitial coarsening. No pneumothorax or large pleural effusion. Unchanged right basilar atelectasis versus scarring. Degenerative changes of the shoulders and spine. IMPRESSION: 1. Cardiomegaly with pulmonary vascular congestion. 2. Chronic interstitial coarsening with right basilar atelectasis versus scarring. ACT 112: Negative or not required by law. The above report was generated using voice recognition software. It may contain grammatical, syntax or spelling errors. Electronically signed by: Jas Ruiz M.D. 12/07/2023 3:55 PM Lower Extremity CTA 12/07/23 15:05 CT angio right lower extremity with intravenous contrast HISTORY: Right lower extremity discoloration. TECHNIQUE: Multiaxial CT images of the right lower extremity were performed following intravenous administration of contrast to evaluate the major arterial structures. 3-D/Maximal intensity projection images in the sagittal and coronal reformations were also obtained for the CTA portion of the examination. COMPARISON STUDY: Abdomen and pelvis CT 01/12/2023. FINDINGS: Moderate external iliac lymphadenopathy is similar to the prior study. Dominant lymph node on image 73 measures 22 x 15 mm. The prostate gland is enlarged. Stable prominent right inguinal lymph nodes. Focal irregularity of the skin surface within the dorsum of the midfoot which may represent a skin ulceration or small laceration. There is a small amount of subcutaneous gas tracking superiorly along the anterior aspect of the mid to distal right lower leg. This is likely related to the skin ulceration/injury at the midfoot. A gas- forming organism is not excluded. No loculated fluid collections to suggest an abscess. Soft tissue edema within the foot. Prior amputation of the fifth toe. Skin thickening noted within the right lower leg, ankle, and foot. No fracture or dislocation within the right lower extremity. No areas of bony destructive changes to suggest osteomyelitis at this time. The visualized right external iliac artery is patent. There is moderate calcified plaque within the right common femoral artery demonstrating less than 50% stenosis. There is a stent within the proximal right superficial femoral artery which is patent. Calcified plaque within the distal right superficial femoral artery demonstrates up to 50% stenosis as seen on image 326. Focal occlusion at the popliteal artery with reconstitution at the distal popliteal artery beyond the popliteal artery stent due to collateral flow. The right popliteal artery stent is also occluded. There is severe stenosis within the distal popliteal artery demonstrating up to 90% focal stenosis best seen on image 481. Short segment of severe stenosis within the mid posterior tibial artery on image 619. The anterior tibial artery is occluded proximally. There is reconstitution of flow within the mid to distal anterior tibial artery due to a collateral. Multifocal stenosis noted within the dorsalis pedis artery. Mild multifocal stenosis within the peroneal artery. IMPRESSION: 1. The proximal to mid right popliteal artery is occluded which includes the popliteal artery stent. There is reconstitution of flow at the distal popliteal artery beyond the popliteal stent due to collaterals. 2. High-grade stenosis within the distal popliteal artery. 3. Severe stenosis within a short segment of the mid posterior tibial artery. 4. The anterior tibial artery is occluded proximally with reconstitution of flow within the mid to distal segment due to a collateral. 5. Focal irregularity of the skin surface within the dorsum of the midfoot which may represent a skin ulceration or small laceration. There is a small amount of subcutaneous gas tracking superiorly along the anterior aspect of the mid to distal right lower leg. This is likely related to the skin ulceration/injury at the midfoot. A gas-forming organism is not excluded. No loculated fluid collections to suggest an abscess. 6. Additional findings as described above. ACT 112: Negative or not required by law. Electronically signed by: Obey Segovia M.D. 12/07/2023 4:29 PM Discharge Plan Visit Data Chief Complaint: Referred by Doctor Stated Complaint: PURPLE FOOT, REF BY [facility] ED Provider: Ivan Ramos Discharge Problem: Occlusion of right popliteal artery, PAD (peripheral artery disease), Cellulitis of foot, right, Acute hyponatremia, Acute hyperglycemia Patient Disposition: Being Evaluated by Hospitalist Forms Stand Alone Forms: My [facility] Prescriptions Prescriptions: No Action furosemide 40 mg tablet 40 mg PO QAM glyburide 5 mg tablet 5 mg PO BID aspirin 81 mg Tablet,Delayed Release (Dr/Ec) 81 mg PO QAM rosuvastatin [Crestor] 10 mg tablet 10 mg PO DAILY Levemir FlexTouch U100 Insulin 100 unit/mL (3 mL) insulin pen 80 unit SUBCUT BID Patient Comments: took 30 units metoprolol succinate 50 mg tablet extended release 24 hr 50 mg PO QAM metformin 1,000 mg tablet 1,000 mg PO BID nitroglycerin 0.4 mg Tablet, Sublingual 0.4 mg buccal DIRECTED PRN (Reason: Chest Pain) Rx Instructions: not used in 4 years lisinopril 30 mg tablet 30 mg PO QAM insulin aspart U-100 [Novolog FlexPen U-100 Insulin] 100 unit/mL (3 mL) Insulin Pen 6 unit SUBCUT AC Rx Instructions: per [id number] they use as needed. metronidazole 500 mg Tablet 500 mg PO TID clopidogrel 75 mg tablet 75 mg PO DAILY nortriptyline 25 mg Capsule 0 mg PO DAILY Rx Instructions: Daughter in law didn't give instructions. pantoprazole [Protonix] 40 mg Tablet,Delayed Release (Dr/Ec) 40 mg PO DAILY cefprozil 250 mg Tablet 0 mg TID cyclobenzaprine 5 mg tablet 5 mg PO TID Rx Instructions: not started yet, just prescribed this morning. Referrals Referrals: Mckenna Fernando PA-C [Primary Care Provider] -
[2023-12-07] MEDS: ONDANSETRON INJ 2 MG/ML 2 ML VIAL IV STA (15:33)
[2023-12-07] MEDS: SODIUM CHLORIDE 0.9% 500 ML IV ONE ×2 (15:33→17:32)
[2023-12-07] MEDS: MoRPHine SULFATE 4 MG/ML 1 ML CARP\\VIAL IV STA (15:33)
[2023-12-07 15:38] LABS: Basophils # (auto) 0.05 K/uL (0.00-0.20); Basophils % (auto) 0.3 %; Eosinophils # (auto) 0.14 K/uL (0.00-0.50); Eosinophils % (auto) 0.7 %; Hematocrit (blood only) 38.1 % (42.0-52.0); Immature Granulocytes # (auto) 0.14 K/uL (0.01-0.20); Immature Granulocytes % (auto) 0.7 %; Lymphocytes # (auto) 1.68 K/uL (1.20-3.40); Lymphocytes % (auto) 8.6 %; Mean Corpuscular Hemoglobin 26.7 pg (25.0-34.0); Mean Corpuscular Hgb Conc 31.5 g/dL (32.0-36.0); Mean Corpuscular Volume 84.7 fL (80.0-100.0); Mean Platelet Volume 9.9 fL (9.4-12.4); Monocytes % (auto) 8.2 %; Neutrophils # (auto) 15.95 K/uL (1.40-6.50); Neutrophils % (auto) 81.5 %; Platelet Count 347 K/uL (130-400); RDW Standard Deviation 46.1 fL (36.4-46.3); White Blood Count 19.56 K/ul (4.8-10.8)
[2023-12-07 15:49] LABS: Partial Thromboplastin Ratio 1.1; Partial Thromboplastin Time 30 Seconds (21-31); Prothrombin Time 11.2 Seconds (9.0-12.0)
[2023-12-07 15:51] LABS: iSTAT Creatinine 1.2 mg/dl (0.6-1.3); iSTAT Hemoglobin 13.6 g/dl (14.0-18.0); iSTAT Ionized Calcium 1.12 mmol/l (1.12-1.32); iSTAT Potassium 4.5 mmol/L (3.3-5.0)
--- NOTE | 2023-12-07 15:56 | XRay Report ---
XR chest 1V portable HISTORY: 68 years-old Male Chest pain, nonspecific COMPARISON: 01/12/2023 TECHNIQUE: AP view the chest FINDINGS: Cardiac silhouette is enlarged. Pulmonary vascular congestion with interstitial coarsening. No pneumo thorax or large pleural effusion. Unchanged right basilar atelectasis versus scarring. Degenerative c hanges of the shoulders and spine. IMPRESSION: 1. Cardiomegaly with pulmonary vascular congestion. 2. Chronic interstitial coarsening with right basilar atelectasis versus scarring. ACT 112: Negative or not required by law. The above report was generated using voice recognition software. It may contain grammatical, syntax o r spelling errors. Electronically signed by: Jas Ruiz M.D. 12/07/2023 3:55 PM
[2023-12-07 16:05] LABS: Albumin Globulin Ratio 1.3 (0.9-2); Albumin Level 3.9 gm/dl (3.4-5.0); BUN Creatinine Ratio 24.3 (10-20); Bilirubin,Total 0.4 mg/dl (0.2-1.0); Calcium 9.4 mg/dl (8.6-10.3); Creatinine Clr Calc Pharmacy 73.2 ml/min; Est GFR (African American) 75.4 ml/min; Globulin 3.1 gm/dl (2.5-4.0); Potassium 4.6 mmol/L (3.5-5.1)
[2023-12-07 16:07] LABS: Troponin I High Sensitivity 13.1 pg/ml (0-20)
[2023-12-07] MEDS: OPTIRAY 320 125ml IV ONE (16:14)
--- NOTE | 2023-12-07 16:31 | CT Scan Report ---
CT angio right lower extremity with intravenous contrast HISTORY: Right lower extremity discoloration. TECHNIQUE: Multiaxial CT images of the right lower extremity were performed following intravenous adm inistration of contrast to evaluate the major arterial structures. 3-D/Maximal intensity projection i mages in the sagittal and coronal reformations were also obtained for the CTA portion of the examinat ion. COMPARISON STUDY: Abdomen and pelvis CT 01/12/2023. FINDINGS: Moderate external iliac lymphadenopathy is similar to the prior study. Dominant lymph node on image 73 measures 22 x 15 mm. The prostate gland is enlarged. Stable prominent right inguinal lymp h nodes. Focal irregularity of the skin surface within the dorsum of the midfoot which may represent a skin ulceration or small laceration. There is a small amount of subcutaneous gas tracking superiorl y along the anterior aspect of the mid to distal right lower leg. This is likely related to the skin ulceration/injury at the midfoot. A gas-forming organism is not excluded. No loculated fluid collecti ons to suggest an abscess. Soft tissue edema within the foot. Prior amputation of the fifth toe. Skin thickening noted within the right lower leg, ankle, and foot. No fracture or dislocation within the right lower extremity. No areas of bony destructive changes to suggest osteomyelitis at this time. The visualized right external iliac artery is patent. There is moderate calcified plaque within the r ight common femoral artery demonstrating less than 50% stenosis. There is a stent within the proximal right superficial femoral artery which is patent. Calcified plaque within the distal right superfici al femoral artery demonstrates up to 50% stenosis as seen on image 326. Focal occlusion at the poplit eal artery with reconstitution at the distal popliteal artery beyond the popliteal artery stent due t o collateral flow. The right popliteal artery stent is also occluded. There is severe stenosis within the distal popliteal artery demonstrating up to 90% focal stenosis best seen on image 481. Short seg ment of severe stenosis within the mid posterior tibial artery on image 619. The anterior tibial dayton ry is occluded proximally. There is reconstitution of flow within the mid to distal anterior tibial a rtery due to a collateral. Multifocal stenosis noted within the dorsalis pedis artery. Mild multifoca l stenosis within the peroneal artery. IMPRESSION: 1. The proximal to mid right popliteal artery is occluded which includes the popliteal artery stent. There is reconstitution of flow at the distal popliteal artery beyond the popliteal stent due to gopal aterals. 2. High-grade stenosis within the distal popliteal artery. 3. Severe stenosis within a short segment of the mid posterior tibial artery. 4. The anterior tibial artery is occluded proximally with reconstitution of flow within the mid to di stal segment due to a collateral. 5. Focal irregularity of the skin surface within the dorsum of the midfoot which may represent a skin ulceration or small laceration. There is a small amount of subcutaneous gas tracking superiorly fredy g the anterior aspect of the mid to distal right lower leg. This is likely related to the skin ulcera tion/injury at the midfoot. A gas-forming organism is not excluded. No loculated fluid collections to suggest an abscess. 6. Additional findings as described above. ACT 112: Negative or not required by law. Electronically signed by: Obey Segovia M.D. 12/07/2023 4:29 PM
[2023-12-07] MEDS ORDERED: VANCOMYCIN CONSULT ACTIVE PRN (16:35)
[2023-12-07] MEDS ORDERED: Heparin IV Adult Wt-Based Standard w/ INITIAL Bolus Protocol IV STA (16:42)
[2023-12-07 16:49] LABS: C Reactive Protein 10.05 mg/dl (0-0.5)
[2023-12-07] MEDS: CLINDAMYCIN/D5W 900 MG/50 ML BAG IV ONE (17:07)
[2023-12-07] MEDS: HEPARIN SODIUM/DEXTROSE 25,000 UNITS/500 ML BAG IV SCH (17:15)
[2023-12-07] MEDS: HEPARIN SOD (PORCINE) 1000 UNIT/ML IV ONE ×3 (17:15→23:43)
[2023-12-07] MEDS: PIPERACILLIN/TAZOBACTAM 4.5 GM/100 ML BAG IV ONE (17:15)
--- NOTE | 2023-12-07 17:24 | History & Physical Report ---
Date of Service December 07, 2023 Assessment & Plan (1) Ischemic foot: Plan: Occluded right popliteal artery Heparin standard bolus and drip Pain control with acetaminophen WENDY, oxycodone 5-10mg PRN 1st line, Dilaudid 0.2.52-0.5mg PRN 2nd line or NPO Consult vascular surgery, NPO after midnight (2) Cellulitis of foot, right: Plan: No surgical emphysema clinically to suggest necrotizing fasciitis despite CT findings Daptomycin, Zosyn, clindamycin Consult orthopedics deferred pending vascular consult/intervention (3) PAD (peripheral artery disease): Plan: ASA, clopidogrel Rosuvastatin on hold with daptomycin use (4) Type 2 diabetes mellitus: Plan: No HbA1C, ordered with AM labs Outpatient on Levemir 60 units BID, Novolog 6 units AC, glyburide Consult pharmacy for glycemic control (5) BETTE (obstructive sleep apnea): Plan: Not on CPAP, on chronic O2 (6) Chronic respiratory failure: Plan: Chronic 4LPM O2, currently at baseline (7) CHF (congestive heart failure): Plan: Currently euvolemic Furosemide held pre-operatively (8) Hypertension: Plan: Continue metoprolol succinate Hold lisinopril, furosemide pre operatively (9) Pressure ulcer of right foot, unstageable: (10) Occlusion of right popliteal artery: Plan VTE prophylaxis - IV heparin Diet - type 2 diabetes, heart healthy Disposition - admit to PCU Admission and Anticipated Discharge Date Admission Date: December 07, 2023 History of Present Illness Chief Complaint: Purple discoloration of foot Primary Care Provider: Mckenna Fernando PA-C Oliverio Monte is a 68-year-old male who presents to the ER on advice of the wound care clinic due to purple discoloration and lack of pulses in his right foot. He reports problems with his right foot stemming from November 2022 when in [facility] he had a stent placed to help with blood flow and he reports at the same time he was to have an I&D on an ulcer on 5th toe but it turned out to be gangrenous therefore operation turned into an amputation. This was performed by Dr Laguerre. 3 months following this he developed a new pressure ulcer on the dorsum of his foot which has also never healed. Both wounds were doing better over many months and he follows with wound care regularly. This was up until a routine ultrasound in October picked up that the stent was blocked. His insurance no longer covered [employer] therefore he switched vascular surgeons to Dr Greenberg and underwent right lower extremity angiogram with percutaneous transluminal angioplasty and stenting of right popliteal Artery and percutaneous transluminal angioplasty of proximal right superficial femoral artery on October 26. Again his foot started to heal better following this up until 2 weeks a ago he started noticing worsening pain. He is unsure of the timeline of discoloration but feels this may also have been purple for the last 1.5 weeks (certainly not present at his prior wound care visit appointment 2 weeks ago). Erythema started tracking up his foot and leg for the last 3-4 days. No fever or chills. He reports the ulcers have turned black over the last month. He reports being on antibiotics from wound care recently in the last month but cannot remember what he was on and nothing mentioned in external med rec list. He has not been on antibiotics for the last week. Allergies Allergy/AdvReac Type Severity Reaction Status Date / Time empagliflozin Allergy Intermediate Nausea, Verified 10/27/23 10:36 [From [employer]] Dizziness Home Medications Medication Instructions Recorded Confirmed Type aspirin 81 mg tablet,delayed 81 mg PO QAM 04/02/21 10/27/23 History release furosemide 40 mg tablet 40 mg PO QAM 04/02/21 10/27/23 History glyburide 5 mg tablet 5 mg PO BID 04/02/21 10/27/23 History insulin aspart U-100 100 unit/mL 6 unit subcut AC 04/02/21 10/27/23 History (3 mL) subcutaneous pen (Novolog FlexPen U-100 Insulin aspart) insulin detemir U-100 100 unit/mL 80 unit subcut BID 04/02/21 10/27/23 History (3 mL) subcutaneous pen (Levemir FlexTouch U-100 Insulin) lisinopril 30 mg tablet 30 mg PO QAM 04/02/21 10/27/23 History metformin 1,000 mg tablet 1,000 mg PO BID 04/02/21 10/27/23 History metoprolol succinate 50 mg 50 mg PO QAM 04/02/21 10/27/23 History tablet,extended release 24 hr nitroglycerin 0.4 mg sublingual 0.4 mg buccal DIRECTED PRN 04/02/21 10/27/23 History tablet Chest Pain rosuvastatin 10 mg tablet (Crestor) 10 mg PO DAILY 04/02/21 10/27/23 History cefprozil 250 mg tablet 0 mg TID 01/12/23 10/27/23 History clopidogrel 75 mg tablet 75 mg PO DAILY 01/12/23 10/27/23 History cyclobenzaprine 5 mg tablet 5 mg PO TID 01/12/23 10/27/23 History metronidazole 500 mg tablet 500 mg PO TID 01/12/23 10/27/23 History nortriptyline 25 mg capsule 0 mg PO DAILY 01/12/23 10/27/23 History pantoprazole 40 mg tablet,delayed 40 mg PO DAILY 01/12/23 10/27/23 History release (Protonix) Past Med/Surg History Medical History (Updated 12/08/23 @ 05:59 by Merrick Porter MD) COPD (chronic obstructive pulmonary disease) Chronic respiratory failure CKD (chronic kidney disease) stage 2, GFR 60-89 ml/min Coronary artery disease Pulmonary hypertension CHF (congestive heart failure) BETTE (obstructive sleep apnea) Type 2 diabetes mellitus Hyperlipidemia Hypertension Family History Other Family history non-contributory Social History Smoking Status: Former smoker Tobacco Type: Cigarettes Cigarettes Per Day: na; Smoking End Date: 15-20 years ago; Second Hand Exposure: Yes (son); Do You Dip or Chew Tobacco: No; Hx Alcohol Use: Yes (rarely) Hx Substance Use: No Preferred Language: Turkmen Communication Ability: Effective Fisher Required: No Beliefs That Will Affect Care: None Current Living Situation: Family Current Living Situation Comment: with son and daughter inlaw How many Children do You have: 5 Other Information That Helps Us Care for You: No Feels Safe at Home: Yes Safety Concerns: Feels Safe At This Time Assistive Devices: Cane and Oxygen - Continuous Review of Systems 2 Review of Systems: All systems reviewed & are unremarkable except as noted in HPI & below Physical Exam 2 Constitutional: well developed; + not well nourished and no acute distress Eyes: + anicteric sclerae; normal pupil size ENMT: external ear and nose normal, oropharynx normal Respiratory: normal respiratory effort, lungs clear to auscultation Cardiovascular: Rate/Rhythm: regular rhythm and + tachycardic Heart Sounds: + murmur Vessels: + posterior tibial pulses abnormal (right not palpable) and + dorsalis pedis pulses abnormal (right not palpable) Extremities: + abnormal capillary refill and no calf tenderness Gastrointestinal (Abdomen): normal bowel sounds, soft, nontender, no hepatosplenomegaly Skin: Neurologic: moves all extremities and awake; not confused Psychiatric: A+Ox3, euthymic affect Results & Data Results & Data Vital Signs (Past 12 Hours) Vital Signs Temp Pulse Resp BP Pulse Ox O2 Del Method O2 Flow Rate 12/07/23 16:40 122 H 13 97 12/07/23 16:30 120/84 12/07/23 16:30 122 H 20 95 12/07/23 16:21 120 H 12/07/23 16:20 120 H 14 96 12/07/23 16:16 122 H 14 94 12/07/23 15:53 97 12/07/23 15:40 94 12/07/23 15:31 97 Nasal Cannula 4 12/07/23 15:30 120 H 18 98 12/07/23 15:20 124 H 22 98 12/07/23 15:10 124 H 22 96 12/07/23 15:01 124 H 21 98 12/07/23 15:00 127/88 12/07/23 14:45 36.7 C 127 H 20 138/80 96 Room Air Laboratory Results Abnormal lab results 12/07/23 12/07/23 Range/Units 15:27 15:33 WBC 19.56 H (4.8-10.8) K/ul RBC 4.50 L (4.70-6.10) M/uL Hgb 12.0 L (14.0-18.0) g/dl POC Hgb 13.6 L (14.0-18.0) g/dl Hct 38.1 L (42.0-52.0) % POC Hct 40 L (42-52) % MCHC 31.5 L (32.0-36.0) g/dL RDW Coeff of Larry 15.0 H (11.5-14.5) % Neut # (Auto) 15.95 H (1.40-6.50) K/uL [place] # (Auto) 1.60 H (0.11-0.59) K/uL POC Sodium 130 L (135-144) mmol/L Sodium 131 L (136-145) mmol/L POC Chloride 94 L (101-112) mmol/L Chloride 95 L (98-107) mmol/L POC Anion Gap 15.0 L (16-25) mmol/L POC BUN 26 H (7-18) mg/dl BUN 28 H (6-23) mg/dl BUN/Creatinine Ratio 24.3 H (10-20) Glucose 241 H (70-99(Fasting)) mg/dl POC Glucose (other) 239 H (70-99) mg/dl AST 10 L (13-39) U/L C-Reactive Protein 10.05 H (0-0.5) mg/dl Diagnostic Findings XR chest 1V portable HISTORY: 68 years-old Male Chest pain, nonspecific COMPARISON: 01/12/2023 TECHNIQUE: AP view the chest FINDINGS: Cardiac silhouette is enlarged. Pulmonary vascular congestion with interstitial coarsening. No pneumothorax or large pleural effusion. Unchanged right basilar atelectasis versus scarring. Degenerative changes of the shoulders and spine. IMPRESSION: 1. Cardiomegaly with pulmonary vascular congestion. 2. Chronic interstitial coarsening with right basilar atelectasis versus scarring. CT angio right lower extremity with intravenous contrast HISTORY: Right lower extremity discoloration. TECHNIQUE: Multiaxial CT images of the right lower extremity were performed following intravenous administration of contrast to evaluate the major arterial structures. 3-D/Maximal intensity projection images in the sagittal and coronal reformations were also obtained for the CTA portion of the examination. COMPARISON STUDY: Abdomen and pelvis CT 01/12/2023. FINDINGS: Moderate external iliac lymphadenopathy is similar to the prior study. Dominant lymph node on image 73 measures 22 x 15 mm. The prostate gland is enlarged. Stable prominent right inguinal lymph nodes. Focal irregularity of the skin surface within the dorsum of the midfoot which may represent a skin ulceration or small laceration. There is a small amount of subcutaneous gas tracking superiorly along the anterior aspect of the mid to distal right lower leg. This is likely related to the skin ulceration/injury at the midfoot. A gas- forming organism is not excluded. No loculated fluid collections to suggest an abscess. Soft tissue edema within the foot. Prior amputation of the fifth toe. Skin thickening noted within the right lower leg, ankle, and foot. No fracture or dislocation within the right lower extremity. No areas of bony destructive changes to suggest osteomyelitis at this time. The visualized right external iliac artery is patent. There is moderate calcified plaque within the right common femoral artery demonstrating less than 50% stenosis. There is a stent within the proximal right superficial femoral artery which is patent. Calcified plaque within the distal right superficial femoral artery demonstrates up to 50% stenosis as seen on image 326. Focal occlusion at the popliteal artery with reconstitution at the distal popliteal artery beyond the popliteal artery stent due to collateral flow. The right popliteal artery stent is also occluded. There is severe stenosis within the distal popliteal artery demonstrating up to 90% focal stenosis best seen on image 481. Short segment of severe stenosis within the mid posterior tibial artery on image 619. The anterior tibial artery is occluded proximally. There is reconstitution of flow within the mid to distal anterior tibial artery due to a collateral. Multifocal stenosis noted within the dorsalis pedis artery. Mild multifocal stenosis within the peroneal artery. IMPRESSION: 1. The proximal to mid right popliteal artery is occluded which includes the popliteal artery stent. There is reconstitution of flow at the distal popliteal artery beyond the popliteal stent due to collaterals. 2. High-grade stenosis within the distal popliteal artery. 3. Severe stenosis within a short segment of the mid posterior tibial artery. 4. The anterior tibial artery is occluded proximally with reconstitution of flow within the mid to distal segment due to a collateral. 5. Focal irregularity of the skin surface within the dorsum of the midfoot which may represent a skin ulceration or small laceration. There is a small amount of subcutaneous gas tracking superiorly along the anterior aspect of the mid to distal right lower leg. This is likely related to the skin ulceration/injury at the midfoot. A gas-forming organism is not excluded. No loculated fluid collections to suggest an abscess. 6. Additional findings as described above. Medications Administered ER medications given: Heparin standard IV bolus and drip Vancomycin 2250 mg IV Morphine 4 mg IV Ondansetron 4 mg IV Normal saline 500ml bolus Zosyn 4.5 g Clindamycin 900 mg Normal saline 500 mL bolus ECG Rate (beats per minute): 124 Rhythm: sinus tachycardia Findings: + RBBB Comparison ECG Date: from (January 12, 2023) Change: the following changes noted (increased rate) Code Status & VTE Plan Code Status Full VTE Prophylaxis Plan VTE Prophylaxis will be ordered: Yes PG Care Time/CCT Total # of Minutes Spent Total Time Spent with Patient: Total time spent is greater than 50% in coordination of care (as documented) at patient's floor/unit and/or counseling patient: Coding Level of Care Code 39960 INT INP/OBS CARE 3/75MIN Diagnoses Ischemic foot I99.8 Cellulitis of foot, right L03.115 PAD (peripheral artery disease) I73.9 Type 2 diabetes mellitus E11.9 BETTE (obstructive sleep apnea) G47.33 Chronic respiratory failure J96.10 CHF (congestive heart failure) I50.9 Hypertension I10 Pressure ulcer of right foot, unstageable L89.890 Occlusion of right popliteal artery I70.201
[2023-12-07] MEDS: VANCOMYCIN HCL 2,250 MG in SODIUM CHLORIDE 0.9% 500 ML IV ONE (17:50)
[2023-12-07] MEDS: HYDROmorphone INJ 0.5 MG/0.5 ML SYR IV STA (18:08)
[2023-12-07] MEDS ORDERED: GLUCOSE 10 TAB/TUBE PO PRN (20:54)
[2023-12-07] MEDS ORDERED: GLUCAGON FOR INJ 1 MG VIAL SQ PRN (20:54)
[2023-12-07] MEDS ORDERED: GLUCOSE 40% GEL 15 GM TUBE PO PRN (20:54)
[2023-12-07] MEDS ORDERED: HYDROmorphone INJ 0.5 MG/0.5 ML SYR IV PRN ×2 (20:54)
[2023-12-07] MEDS ORDERED: oxyCODONE HCL IR 5 MG TAB (IMMEDIATE RELEASE) PO PRN (20:54)
[2023-12-07] MEDS ORDERED: PHARMACY GLYCEMIC MGMT CONSULT PRN (20:54)
[2023-12-07] MEDS ORDERED: DEXTROSE 50% 50 ML SYRINGE IV PRN (20:54)
[2023-12-07] MEDS ORDERED: CARBOHYDRATES FOR HYPOGLYCEMIA PO PRN (20:54)
[2023-12-07] MEDS: CLINDAMYCIN/D5W 900 MG/50 ML BAG IV SCH (21:41)
[2023-12-07] MEDS: DAPTOmycin 325 MG in SYRINGE 0 ML IV SCH (21:41)
[2023-12-07] MEDS: INSULIN ASPART PER UNIT CHARGE SC SCH (21:47)
[2023-12-07] MEDS: ACETAMINOPHEN 500 MG TAB PO SCH (21:49)
[2023-12-07] MEDS: LANTUS PER UNIT CHARGE SC ONE (21:53)
[2023-12-07] MEDS: PIPERACILLIN/TAZOBACTAM 4.5 GM in DEXTROSE 5% MINI-B 100 ML IV SCH (21:56)
[2023-12-07] MEDS: NORTRIPTYLINE HCL 25 MG CAP PO SCH (22:25)
[2023-12-08] MEDS: oxyCODONE HCL IR 5 MG TAB (IMMEDIATE RELEASE) PO PRN (05:26)
[2023-12-08 06:36] LABS: Basophils # (auto) 0.06 K/uL (0.00-0.20); Basophils % (auto) 0.3 %; Eosinophils % (auto) 1.7 %; Hematocrit (blood only) 34.7 % (42.0-52.0); Hemoglobin 10.7 g/dl (14.0-18.0); Immature Granulocytes % (auto) 0.6 %; Lymphocytes # (auto) 1.86 K/uL (1.20-3.40); Lymphocytes % (auto) 10.8 %; Mean Corpuscular Hemoglobin 26.7 pg (25.0-34.0); Mean Corpuscular Hgb Conc 30.8 g/dL (32.0-36.0); Mean Corpuscular Volume 86.5 fL (80.0-100.0); Mean Platelet Volume 10.2 fL (9.4-12.4); Monocytes # (auto) 1.54 K/uL (0.11-0.59); Monocytes % (auto) 8.9 %; Neutrophils # (auto) 13.39 K/uL (1.40-6.50); Neutrophils % (auto) 77.7 %; Platelet Count 340 K/uL (130-400); RDW Coefficient of Variation 15.3 % (11.5-14.5); RDW Standard Deviation 48.3 fL (36.4-46.3); Red Blood Count 4.01 M/uL (4.70-6.10); White Blood Count 17.25 K/ul (4.8-10.8)
[2023-12-08 06:54] LABS: ANTI-Xa, UFH(UnfractionatedHep < 0.10 IU/ml (0.3-0.7)
[2023-12-08 07:17] LABS: Estimated Average Glucose 186 mg/dl; Hemoglobin A1C 8.1 % (4.5-5.6)
[2023-12-08 07:46] LABS: Calcium 8.5 mg/dl (8.6-10.3); Creatinine Clr Calc Pharmacy 76.8 ml/min; Est GFR (African American) 79.5 ml/min; Est GFR (Non-African American) 68.6 ml/min; Potassium 4.5 mmol/L (3.5-5.1)
[2023-12-08] MEDS: HEPARIN SOD (PORCINE) 1000 UNIT/ML IV ONE ×2 (08:25→21:43)
[2023-12-08] MEDS: ASPIRIN 81 MG ECTAB PO SCH (08:27)
[2023-12-08] MEDS: METOPROLOL SUCC 50MG EXT REL TAB PO SCH (08:27)
[2023-12-08] MEDS: CLOPIDOGREL BISULFATE 75 MG TAB PO SCH (08:27)
[2023-12-08] MEDS: PANTOprazole 40 MG TAB PO SCH (08:27)
[2023-12-08] MEDS: LANTUS PER UNIT CHARGE SC SCH ×2 (12:14→21:42)
--- NOTE | 2023-12-08 12:39 | Ultrasound Report ---
US venous mapping [facility] CLINICAL HISTORY: 68 years-old Male with pre bypass, popliteal artery occlusion. TECHNIQUE: Multiple real time sonographic images of the right and left lower extremities were obtaine d. Color Doppler flow and spectral waveform analysis was utilized. Venous mapping was performed. COMPARISON: None. FINDINGS: No evidence of deep vein thrombosis or other abnormality is seen. Venous mapping was performed with the results provided below. RIGHT GREATER SAPHENOUS: Proximal thigh: depth of 11.3 mm, width of 4.9 mm. Mid thigh: depth of 8 mm , width of 4.5 mm. Distal thigh: depth of 5.8 mm, width of 5.7 mm. Knee depth of 4.9, width of 4.7 mm. Proximal calf depth of 4.6 mm, width of 4.9 mm. Mid calf depth of 4.6 mm, width of 5.3 mm. Dis monik calf depth of 5.2 mm, width of 4.0 mm. RIGHT LESSER SAPHENOUS: Proximal calf depth of 5.7 mm, width of 3.2 mm. Mid calf depth of 3.5 mm, w idth of 4.9 mm. Distal calf depth of 5.1 mm, width of 4.0 mm. LEFT GREATER SAPHENOUS: Proximal thigh depth of 7.5 mm, width of 6.4 mm. Mid thigh depth of 5.4 mm, width of 6.5 mm. Distal thigh depth of 2.1 mm, width of 6.1 mm. Knee depth of 2.4 mm, width of 5.9 mm. Proximal calf depth of 3.1 mm, width of 5.4 Mid calf depth of 3.5 mm, width of 3.5 mm. Distal ca lf depth of 3.2 mm, width of 5.1 mm. LEFT LESSER SAPHENOUS: Proximal calf depth of 6.3 mm, width of 3.5 mm. Mid calf depth of 4.2 mm, wi dth of 2.9 mm. Distal calf depth of 2.5 mm, width of 3.3 mm. IMPRESSION: 1. Venous mapping as described above. 2. No venous thrombosis identified. ACT 112: Negative or not required by law. The above report was generated using voice recognition software. It may contain grammatical, syntax o r spelling errors. Electronically signed by: Jas Ruiz M.D. 12/08/2023 12:37 PM
--- NOTE | 2023-12-08 13:20 | Consultation ---
Date of Consultation December 08, 2023 Assessment & Plan (1) Ischemic foot: Will plan on thrombectomy of the right lower extremity with possible femoral to TP bypass tomorrow. I have discussed the risks options and benefits of the procedure with the patient. The patient understands the risks options and benefits and agrees to the procedure. Thank you very much for letting us participate in the care of this patient. History of Present Illness Attending Physician: Delia Banks MD History of Present Illness Mr. Monte is an elderly male who has a history of peripheral arterial disease and right foot ulcers. the patient developed an ulceration to the right lateral foot near the fifth toe about a year ago. He began seeing a slab installer, became concerned due to tissue necrosis in the wound, and sent him to [facility] vascular surgery. He was found to have a severe stenosis of the popliteal artery on the right leg, and underwent lithotripsy and [employer] of the area, as w ell as a right fifth toe ray amputation on December 06, 2022. He then required surgical debridement of the area on 12/30/2022. According to the patient, the wound appeared to be healing well for some months, but took a turn for the worse a few months ago, and now is stagnant and actually getting larger in size. They state that it was nearly healed and is now opening back up. They deny seeing any further necrosis in the wound bed, and states they are now following with a different slab installer, who is performing debridements in the office about every 4 weeks or so. They deny any definite infection to the area. Patient had continue to follow with [facility] vascular surgery, however, due to insurance changes, the patient is unable to undergo any further surgical procedures at [facility]. He was referred here for definitive care, after ultrasound imaging had indicated a possible right popliteal artery occlusion a few weeks ago. Patient himself admits significant bilateral lower extremity pain which is present 24 hours a day, states that the pain is from the knees to the toes bilaterally. He attributes this to diabetic neuropathy, and also has a history of undergoing back surgery in the past. His general activity level is somewhat limited by him requiring 4 L of oxygen at all times, but he does state that if he tries to walk down his driveway and back, he gets discomfort and a cramp in his right calf, not in his left. He underwent stenting of his right popliteal which was originally treated at [place]. He had good results. He now presents with worsening of his foot ulcers, redness of his foot, and an occluded right popliteal artery. Patient does have mild rest pain in the toes of the right foot. Additionally he denies headache, fever, chest pain, shortness of breath, abdominal pain, nausea, vomiting, other concerns. Allergies Allergy/AdvReac Type Severity Reaction Status Date / Time empagliflozin Allergy Intermediate Nausea, Verified 10/27/23 10:36 [From [employer]] Dizziness Home Medications Medication Instructions Recorded Confirmed Type aspirin 81 mg tablet,delayed 81 mg PO QAM 04/02/21 10/27/23 History release furosemide 40 mg tablet 40 mg PO QAM 04/02/21 10/27/23 History glyburide 5 mg tablet 5 mg PO BID 04/02/21 10/27/23 History insulin aspart U-100 100 unit/mL 6 unit subcut AC 04/02/21 10/27/23 History (3 mL) subcutaneous pen (Novolog FlexPen U-100 Insulin aspart) insulin detemir U-100 100 unit/mL 80 unit subcut BID 04/02/21 10/27/23 History (3 mL) subcutaneous pen (Levemir FlexTouch U-100 Insulin) lisinopril 30 mg tablet 30 mg PO QAM 04/02/21 10/27/23 History metformin 1,000 mg tablet 1,000 mg PO BID 04/02/21 10/27/23 History metoprolol succinate 50 mg 50 mg PO QAM 04/02/21 10/27/23 History tablet,extended release 24 hr nitroglycerin 0.4 mg sublingual 0.4 mg buccal DIRECTED PRN 04/02/21 10/27/23 History tablet Chest Pain rosuvastatin 10 mg tablet (Crestor) 10 mg PO DAILY 04/02/21 10/27/23 History cefprozil 250 mg tablet 0 mg TID 01/12/23 10/27/23 History clopidogrel 75 mg tablet 75 mg PO DAILY 01/12/23 10/27/23 History cyclobenzaprine 5 mg tablet 5 mg PO TID 01/12/23 10/27/23 History metronidazole 500 mg tablet 500 mg PO TID 01/12/23 10/27/23 History nortriptyline 25 mg capsule 0 mg PO DAILY 01/12/23 10/27/23 History pantoprazole 40 mg tablet,delayed 40 mg PO DAILY 01/12/23 10/27/23 History release (Protonix) Patient History Medical History COPD (chronic obstructive pulmonary disease) Chronic respiratory failure CKD (chronic kidney disease) stage 2, GFR 60-89 ml/min Coronary artery disease Pulmonary hypertension CHF (congestive heart failure) BETTE (obstructive sleep apnea) Type 2 diabetes mellitus Hyperlipidemia Hypertension Family History Other Family history non-contributory Social History Smoking Status: Former smoker Tobacco Type: Cigarettes Cigarettes Per Day: na; Smoking End Date: 15-20 years ago; Second Hand Exposure: Yes (son); Do You Dip or Chew Tobacco: No; Hx Alcohol Use: Yes (rarely) Hx Substance Use: No Preferred Language: Portuguese Communication Ability: Effective [employer] Supervisor Required: No Beliefs That Will Affect Care: None Current Living Situation: Family Current Living Situation Comment: with son and daughter inlaw How many Children do You have: 5 Other Information That Helps Us Care for You: No Feels Safe at Home: Yes Safety Concerns: Feels Safe At This Time Assistive Devices: Cane and Oxygen - Continuous Review of Systems Review of Systems: All systems reviewed & are unremarkable except as noted in HPI & below Physical Exam Physical Exam: Constitutional: In general patient is an overweight but healthy-appearing well- nourished well-developed elderly male no distress. He does have oxygen on via nasal cannula. He is alert and oriented without any focal deficits. His carotids do not demonstrate a bruit. His heart is regular, his lungs are decreased significantly throughout with coarse sounds but are clear. His abdomen soft nontender with no active bowel sounds in all 4 quadrants. Femoral pulses are +2. Bilateral lower extremity distal pulses are dopplerable and sound monophasic in the right leg and biphasic in the left. Toes demonstrate capillary refill at 3 seconds on the left, markedly decreased in the right. His right fifth toe is surgically absent, and there is a wound bed with no granulation in the lateral foot, slight maceration of the wound edges, no significant drainage. There is periwound erythema extending up the dorsum of the foot. The dorsum of his right foot also demonstrates a deep ulcer with mild periwound erythema, no drainage, no warmth, no odor. The foot itself is slightly purple in color while dependent. Results & Data Vital Signs (Past 12 Hours) Vital Signs Temp Pulse Resp BP Pulse Ox O2 Del Method O2 Flow Rate 12/08/23 11:57 36.5 C 86 19 128/76 96 Nasal Cannula 12/08/23 08:05 37.1 C 106 H 19 128/78 94 Nasal Cannula 12/08/23 08:04 Nasal Cannula 6 12/08/23 04:00 37 C 77 18 107/51 L Room Air
[2023-12-08] MEDS ORDERED: SODIUM CHLORIDE 0.9% 250 ML IV PRN (13:27)
--- NOTE | 2023-12-08 14:24 | Pharmacy Report ---
Pharmacy Glycemic Short Note 2 - Date of Service December 08, 2023 - Glycemic Short BSG Results (Last 24 hours): 12/07/23 12/07/23 12/07/23 15:27 15:33 20:49 Glucose 241 H POC Glucose 218 H POC Glucose (other) 239 H 12/08/23 12/08/23 12/08/23 05:55 05:56 12:00 Glucose 213 H POC Glucose 221 H 161 H POC Glucose (other) OUTPATIENT ANTIDIABETIC REGIMEN: * Levemir 80 units SC BID * Glipizide 5 mg PO BID * Metformin 1000 mg PO BID ASSESSMENT: * 68 y/o M admitted for Ischemic foot/non-healing foot infection yesterday. Patient has history of Type 2 diabetes managed on insulin and oral anti- diabetic meds at home. * Last night patient received 30 units of basal insulin which is around 40% of his home basal dose. * Fasting BSG today was 213 mg/dl. Basal dose increased to 40 units today AM which was given later at noon due to patient being out of room for vascular study. * Currently NPO awaiting thrombectomy with vascular surgery tomorrow. * BSG trended down to 161 mg/dl at noon today. Novolog parameters were ordered based on stress of 3. This is continued. * Basal at HS ordered on a scale based on BSG. Will re-assess basal doses. PLAN FOR INPATIENT GLYCEMIC CONTROL: * Hold outpatient oral diabetes medications * Basal insulin * Lantus 30 units SC last night x1. Lantus 40 units SC at noon today x1. * Lantus 30/40/50 units SC BID based on BSG (see EMR for details) * Bolus insulin * NovoLog per scale ACHS or Q6hrs while NPO * Goal Range: Low 110 mg/dL - High 140 mg/dL * Correction Factor: 15 mg/dL/unit * Nutritional / Prandial insulin per carb ratio of 1 unit per 5 grams CHO consumed
--- NOTE | 2023-12-08 14:58 | Hospitalist Progress Note ---
Date of Service December 08, 2023 Assessment & Plan (1) Ischemic foot: Plan: Occluded right popliteal artery Heparin drip running Pain control with acetaminophen WENDY, oxycodone 5-10mg PRN 1st line, Dilaudid 0.2.52-0.5mg PRN Vascular surgery on board. Planning on thrombectomy of the right lower extremity with possible fem to TP bypass tomorrow. N.p.o. postmidnight (2) Cellulitis of foot, right: Plan: No surgical emphysema clinically to suggest necrotizing fasciitis despite CT findings Daptomycin, Zosyn, clindamycin Consult orthopedics deferred pending vascular consult/intervention (3) PAD (peripheral artery disease): Plan: ASA, clopidogrel Rosuvastatin on hold with daptomycin use (4) Type 2 diabetes mellitus: Plan: No HbA1C, ordered with AM labs Outpatient on Levemir 60 units BID, Novolog 6 units AC, glyburide Consult pharmacy for glycemic control (5) BETTE (obstructive sleep apnea): Plan: Not on CPAP, on chronic O2 (6) Chronic respiratory failure: Plan: Chronic 4LPM O2, currently at baseline (7) CHF (congestive heart failure): Plan: Patient has CHFpEF Currently euvolemic Furosemide held pre-operatively (8) Hypertension: Plan: Continue metoprolol succinate Hold lisinopril, furosemide pre operatively (9) Pressure ulcer of right foot, unstageable: (10) Occlusion of right popliteal artery: Plan VTE prophylaxis - IV heparin Diet - type 2 diabetes, heart healthy Admission and Anticipated Discharge Date Admission Date: December 07, 2023 Subjective Patient has significant pain in the right foot. Review of Systems Review of Systems: All systems reviewed & are unremarkable except as noted in Subjective Physical Exam Physical Exam: General: Awake, conversant Heart: S1, S2/regular rate and rhythm, no murmur rubs or gallops Lungs: Clear to auscultation bilaterally. Normal effort Abdomen: Soft/nontender/nondistended. No hepatosplenomegaly Extremities: No clubbing/cyanosis. No edema Behavior: Appropriate, cooperative Results & Data Results & Data Vital Signs (Past 12 Hours) Vital Signs Temp Pulse Resp BP Pulse Ox O2 Del Method O2 Flow Rate 12/08/23 11:57 36.5 C 86 19 128/76 96 Nasal Cannula 12/08/23 08:05 37.1 C 106 H 19 128/78 94 Nasal Cannula 12/08/23 08:04 Nasal Cannula 6 12/08/23 04:00 37 C 77 18 107/51 L Room Air Laboratory Results Abnormal lab results 12/07/23 12/07/23 12/07/23 Range/Units 15:27 15:33 20:49 WBC 19.56 H (4.8-10.8) K/ul RBC 4.50 L (4.70-6.10) M/uL Hgb 12.0 L (14.0-18.0) g/dl POC Hgb 13.6 L (14.0-18.0) g/dl Hct 38.1 L (42.0-52.0) % POC Hct 40 L (42-52) % MCHC 31.5 L (32.0-36.0) g/dL RDW Std Deviation (36.4-46.3) fL RDW Coeff of Larry 15.0 H (11.5-14.5) % Neut # (Auto) 15.95 H (1.40-6.50) K/uL [place] # (Auto) 1.60 H (0.11-0.59) K/uL Heparin Anti-Xa, Unfract (0.3-0.7) IU/ml POC Sodium 130 L (135-144) mmol/L Sodium 131 L (136-145) mmol/L POC Chloride 94 L (101-112) mmol/L Chloride 95 L (98-107) mmol/L POC Anion Gap 15.0 L (16-25) mmol/L POC BUN 26 H (7-18) mg/dl BUN 28 H (6-23) mg/dl BUN/Creatinine Ratio 24.3 H (10-20) Glucose 241 H (70-99(Fasting)) mg/dl POC Glucose 218 H (70-99) mg/dl POC Glucose (other) 239 H (70-99) mg/dl Hemoglobin A1c (4.5-5.6) % Calcium (8.6-10.3) mg/dl AST 10 L (13-39) U/L C-Reactive Protein 10.05 H (0-0.5) mg/dl Crossmatch 12/07/23 12/08/23 12/08/23 Range/Units 22:50 05:55 05:56 WBC 17.25 H (4.8-10.8) K/ul RBC 4.01 L (4.70-6.10) M/uL Hgb 10.7 L (14.0-18.0) g/dl POC Hgb (14.0-18.0) g/dl Hct 34.7 L (42.0-52.0) % POC Hct (42-52) % MCHC 30.8 L (32.0-36.0) g/dL RDW Std Deviation 48.3 H (36.4-46.3) fL RDW Coeff of Larry 15.3 H (11.5-14.5) % Neut # (Auto) 13.39 H (1.40-6.50) K/uL [place] # (Auto) 1.54 H (0.11-0.59) K/uL Heparin Anti-Xa, Unfract 0.10 L < 0.10 L (0.3-0.7) IU/ml POC Sodium (135-144) mmol/L Sodium 131 L (136-145) mmol/L POC Chloride (101-112) mmol/L Chloride 96 L (98-107) mmol/L POC Anion Gap (16-25) mmol/L POC BUN (7-18) mg/dl BUN (6-23) mg/dl BUN/Creatinine Ratio (10-20) Glucose 213 H (70-99(Fasting)) mg/dl POC Glucose 221 H (70-99) mg/dl POC Glucose (other) (70-99) mg/dl Hemoglobin A1c 8.1 H (4.5-5.6) % Calcium 8.5 L (8.6-10.3) mg/dl AST (13-39) U/L C-Reactive Protein (0-0.5) mg/dl Crossmatch 12/08/23 12/08/23 Range/Units 12:00 14:14 WBC (4.8-10.8) K/ul RBC (4.70-6.10) M/uL Hgb (14.0-18.0) g/dl POC Hgb (14.0-18.0) g/dl Hct (42.0-52.0) % POC Hct (42-52) % MCHC (32.0-36.0) g/dL RDW Std Deviation (36.4-46.3) fL RDW Coeff of Larry (11.5-14.5) % Neut # (Auto) (1.40-6.50) K/uL [place] # (Auto) (0.11-0.59) K/uL Heparin Anti-Xa, Unfract 0.20 L (0.3-0.7) IU/ml POC Sodium (135-144) mmol/L Sodium (136-145) mmol/L POC Chloride (101-112) mmol/L Chloride (98-107) mmol/L POC Anion Gap (16-25) mmol/L POC BUN (7-18) mg/dl BUN (6-23) mg/dl BUN/Creatinine Ratio (10-20) Glucose (70-99(Fasting)) mg/dl POC Glucose 161 H (70-99) mg/dl POC Glucose (other) (70-99) mg/dl Hemoglobin A1c (4.5-5.6) % Calcium (8.6-10.3) mg/dl AST (13-39) U/L C-Reactive Protein (0-0.5) mg/dl Crossmatch See Detail Diagnostic Findings Chest X-Ray 12/07/23 15:00 XR chest 1V portable HISTORY: 68 years-old Male Chest pain, nonspecific COMPARISON: 01/12/2023 TECHNIQUE: AP view the chest FINDINGS: Cardiac silhouette is enlarged. Pulmonary vascular congestion with interstitial coarsening. No pneumothorax or large pleural effusion. Unchanged right basilar atelectasis versus scarring. Degenerative changes of the shoulders and spine. IMPRESSION: 1. Cardiomegaly with pulmonary vascular congestion. 2. Chronic interstitial coarsening with right basilar atelectasis versus scarring. ACT 112: Negative or not required by law. The above report was generated using voice recognition software. It may contain grammatical, syntax or spelling errors. Electronically signed by: Jas Ruiz M.D. 12/07/2023 3:55 PM Lower Extremity CTA 12/07/23 15:05 CT angio right lower extremity with intravenous contrast HISTORY: Right lower extremity discoloration. TECHNIQUE: Multiaxial CT images of the right lower extremity were performed following intravenous administration of contrast to evaluate the major arterial structures. 3-D/Maximal intensity projection images in the sagittal and coronal reformations were also obtained for the CTA portion of the examination. COMPARISON STUDY: Abdomen and pelvis CT 01/12/2023. FINDINGS: Moderate external iliac lymphadenopathy is similar to the prior study. Dominant lymph node on image 73 measures 22 x 15 mm. The prostate gland is enlarged. Stable prominent right inguinal lymph nodes. Focal irregularity of the skin surface within the dorsum of the midfoot which may represent a skin ulceration or small laceration. There is a small amount of subcutaneous gas tracking superiorly along the anterior aspect of the mid to distal right lower leg. This is likely related to the skin ulceration/injury at the midfoot. A gas- forming organism is not excluded. No loculated fluid collections to suggest an abscess. Soft tissue edema within the foot. Prior amputation of the fifth toe. Skin thickening noted within the right lower leg, ankle, and foot. No fracture or dislocation within the right lower extremity. No areas of bony destructive changes to suggest osteomyelitis at this time. The visualized right external iliac artery is patent. There is moderate calcified plaque within the right common femoral artery demonstrating less than 50% stenosis. There is a stent within the proximal right superficial femoral artery which is patent. Calcified plaque within the distal right superficial femoral artery demonstrates up to 50% stenosis as seen on image 326. Focal occlusion at the popliteal artery with reconstitution at the distal popliteal artery beyond the popliteal artery stent due to collateral flow. The right popliteal artery stent is also occluded. There is severe stenosis within the distal popliteal artery demonstrating up to 90% focal stenosis best seen on image 481. Short segment of severe stenosis within the mid posterior tibial artery on image 619. The anterior tibial artery is occluded proximally. There is reconstitution of flow within the mid to distal anterior tibial artery due to a collateral. Multifocal stenosis noted within the dorsalis pedis artery. Mild multifocal stenosis within the peroneal artery. IMPRESSION: 1. The proximal to mid right popliteal artery is occluded which includes the popliteal artery stent. There is reconstitution of flow at the distal popliteal artery beyond the popliteal stent due to collaterals. 2. High-grade stenosis within the distal popliteal artery. 3. Severe stenosis within a short segment of the mid posterior tibial artery. 4. The anterior tibial artery is occluded proximally with reconstitution of flow within the mid to distal segment due to a collateral. 5. Focal irregularity of the skin surface within the dorsum of the midfoot which may represent a skin ulceration or small laceration. There is a small amount of subcutaneous gas tracking superiorly along the anterior aspect of the mid to distal right lower leg. This is likely related to the skin ulceration/injury at the midfoot. A gas-forming organism is not excluded. No loculated fluid collections to suggest an abscess. 6. Additional findings as described above. ACT 112: Negative or not required by law. Electronically signed by: Obey Segovia M.D. 12/07/2023 4:29 PM Extremity Venous Study 12/08/23 08:34 US venous mapping [facility] CLINICAL HISTORY: 68 years-old Male with pre bypass, popliteal artery occlusion. TECHNIQUE: Multiple real time sonographic images of the right and left lower e xtremities were obtained. Color Doppler flow and spectral waveform analysis was utilized. Venous mapping was performed. COMPARISON: None. FINDINGS: No evidence of deep vein thrombosis or other abnormality is seen. Venous mapping was performed with the results provided below. RIGHT GREATER SAPHENOUS: Proximal thigh: depth of 11.3 mm, width of 4.9 mm. Mid thigh: depth of 8 mm, width of 4.5 mm. Distal thigh: depth of 5.8 mm, width of 5.7 mm. Knee depth of 4.9, width of 4.7 mm. Proximal calf depth of 4.6 mm, width of 4.9 mm. Mid calf depth of 4.6 mm, width of 5.3 mm. Distal calf depth of 5.2 mm, width of 4.0 mm. RIGHT LESSER SAPHENOUS: Proximal calf depth of 5.7 mm, width of 3.2 mm. Mid calf depth of 3.5 mm, width of 4.9 mm. Distal calf depth of 5.1 mm, width of 4. 0 mm. LEFT GREATER SAPHENOUS: Proximal thigh depth of 7.5 mm, width of 6.4 mm. Mid thigh depth of 5.4 mm, width of 6.5 mm. Distal thigh depth of 2.1 mm, width of 6.1 mm. Knee depth of 2.4 mm, width of 5.9 mm. Proximal calf depth of 3.1 mm, width of 5.4 Mid calf depth of 3.5 mm, width of 3.5 mm. Distal calf depth of 3.2 mm, width of 5.1 mm. LEFT LESSER SAPHENOUS: Proximal calf depth of 6.3 mm, width of 3.5 mm. Mid calf depth of 4.2 mm, width of 2.9 mm. Distal calf depth of 2.5 mm, width of 3.3 mm. IMPRESSION: 1. Venous mapping as described above. 2. No venous thrombosis identified. ACT 112: Negative or not required by law. The above report was generated using voice recognition software. It may contain grammatical, syntax or spelling errors. Electronically signed by: Jas Ruiz M.D. 12/08/2023 12:37 PM PG Care Time/CCT Total # of Minutes Spent Total Time Spent with Patient: Total time spent is greater than 50% in coordination of care (as documented) at patient's floor/unit and/or counseling patient: Coding Level of Care Code 81280 SUB INP/OBS CARE 2/35MIN Diagnoses Ischemic foot I99.8 Cellulitis of foot, right L03.115 PAD (peripheral artery disease) I73.9 Type 2 diabetes mellitus E11.9 BETTE (obstructive sleep apnea) G47.33 Chronic respiratory failure J96.10 CHF (congestive heart failure) I50.9 Hypertension I10 Pressure ulcer of right foot, unstageable L89.890 Occlusion of right popliteal artery I70.201
[2023-12-08 15:58] LABS: A calco-baum cmplx NotReported Not Detected (NotDetected); Bact fragilis Not Reported Not Detected (NotDetected); Blood Culture Id Panel See PCR Comment (NotDetected); C auris Not Reported Not Detected (NotDetected); Calbicans Not Reported Not Detected (NotDetected); Candida glabrata Not Reported Not Detected (NotDetected); Candida krusei Not Reported Not Detected (NotDetected); Cneoformans/gatti Not Reported Not Detected (NotDetected); Cparapsilosis Not Reported Not Detected (NotDetected); E cloacae compx Not Reported Not Detected (NotDetected); Efaecalis Not Reported Not Detected (NotDetected); Efaecium Not Reported Not Detected (NotDetected); Enterobacterales Not Reported Not Detected (NotDetected); Escherichia coli Not Reported Not Detected (NotDetected); H influenzae Not Reported Not Detected (NotDetected); K aerogenes Not Reported Not Detected (NotDetected); Koxytoca Not Reported Not Detected (NotDetected); Kpneumoniae grp Not Reported Not Detected (NotDetected); Lmonocyt Not Reported Not Detected (NotDetected); N meningitidis Not Reported Not Detected (NotDetected); P aeruginosa Not Reported Not Detected (NotDetected); Proteus spp Not Reported Not Detected (NotDetected); Salmonella spp Not Reported Not Detected (NotDetected); Smarcescens Not Reported Not Detected (NotDetected); Staph lugdunensis Not Reported Not Detected (NotDetected); Staph spp. Not Reported DETECTED (NotDetected); Staphaureus Not Reported Not Detected (NotDetected); Staphepi Not Reported Not Detected (NotDetected); Stenmaltophilia Not Reported Not Detected (NotDetected); Strep agal(GrpB) Not Reported Not Detected (NotDetected); Strep pneum Not Reported Not Detected (NotDetected); Strep pyog (GrpA) Not Reported Not Detected (NotDetected); Strep spp Not Reported Not Detected (NotDetected)
[2023-12-08 16:04] LABS: Staphylococcus spp. DETECTED (NotDetected)
[2023-12-08 21:01] LABS: ANTI-Xa, UFH(UnfractionatedHep 0.13 IU/ml (0.3-0.7)
--- NOTE | 2023-12-09 08:48 | History & Physical Bridge Note ---
Date of Service December 09, 2023 History & Physical Bridge Note I have examined the patient, reviewed the History & Physical and in the interval since the performance of the History & Physical I have noted the following changes of clinical significance: no changes noted
--- NOTE | 2023-12-09 09:14 | Pharmacy Report ---
Pharmacy Glycemic Short Note 2 - Date of Service December 09, 2023 - Glycemic Short BSG Results (Last 24 hours): 12/08/23 12/08/23 12/08/23 12:00 18:11 20:39 POC Glucose 161 H 162 H 153 H 12/09/23 06:41 POC Glucose 159 H OUTPATIENT ANTIDIABETIC REGIMEN: * Levemir 80 units SC BID * Glipizide 5 mg PO BID * Metformin 1000 mg PO BID * HbA1c: 8.1% (12/08/23) ASSESSMENT: 12/08: * Oliverio received 81 units of insulin yesterday, 70 basal + 11 bolus. BSGs were: 162-005-972-153 mg/dL. * Fasting BSG down to 159 mg/dL this AM. Patient remains NPO today for surgery which is scheduled. Of note, he was NPO for all of yesterday as well. * Will adjust basal scale to only provide 30 or 40 units of insulin BID pending BSG. Since patient tolerated 70 units of basal yesterday while NPO, I am not concerned for hypoglycemia today as patient will likely be ordered a diet and start eating postoperatively. * No change to Novolog. * Remains on heparin drip, LR at 80 cc/hr, daptomycin, clindamycin and zosyn. 12/07: * 68 y/o M admitted for Ischemic foot/non-healing foot infection yesterday. Patient has history of Type 2 diabetes managed on insulin and oral anti- diabetic meds at home. * Last night patient received 30 units of basal insulin which is around 40% of his home basal dose. * Fasting BSG today was 213 mg/dl. Basal dose increased to 40 units today AM which was given later at noon due to patient being out of room for vascular study. * Currently NPO awaiting thrombectomy with vascular surgery tomorrow. * BSG trended down to 161 mg/dl at noon today. Novolog parameters were ordered based on stress of 3. This is continued. * Basal at HS ordered on a scale based on BSG. Will re-assess basal doses. PLAN FOR INPATIENT GLYCEMIC CONTROL: * Hold outpatient oral diabetes medications * Basal insulin * Lantus 30-40 units SC BID pending BSG * Bolus insulin * NovoLog per scale ACHS or Q6hrs while NPO * Goal Range: Low 110 mg/dL - High 140 mg/dL * Correction Factor: 15 mg/dL/unit * Nutritional / Prandial insulin per carb ratio of 1 unit per 5 grams CHO consumed
[2023-12-09] MEDS ORDERED: fentaNYL citrate PF 100 MCG/2 ML VIAL ONE (09:57)
[2023-12-09] MEDS ORDERED: MIDAZOLAM HCL 1 MG/ML 2ML VIAL ONE (09:57)
--- NOTE | 2023-12-09 10:01 | Infectious Disease Consult ---
Date of Consultation December 09, 2023 Consultation Information Consultation was provided via telemedicine using two-way real-time interactive telecommunication between the patient and the telemedicine provider. For the duration of the visit, the provider was performing the assessment from a different facility than the patient. This includesuse of bluetooth stethoscope forauscultationperformed by the telepresenter that the telemedicine provider can hear if described in the physical exam. Analytic Manager contact information: Please call [facility] . (Phone Number For Physician Use Only) After establishing a telemedicine visit, patient was: Patient was verified with two unique identifiers, Patient/authorized rep acknowledged consent and understanding and Gave permission to continue telehealth session Time Spent with Patient: Initial => 55 min History of Present Illness Reason for Consultation: cellulitis staph bacteremia Requesting Physician: Dr. Banks Attending Physician: Delia Banks MD Allergies Allergy/AdvReac Type Severity Reaction Status Date / Time empagliflozin Allergy Intermediate Nausea, Verified 10/27/23 10:36 [From Jardiance] Dizziness Home Medications Medication Instructions Recorded Confirmed Type aspirin 81 mg tablet,delayed 81 mg PO QAM 04/02/21 10/27/23 History release furosemide 40 mg tablet 40 mg PO QAM 04/02/21 10/27/23 History glyburide 5 mg tablet 5 mg PO BID 04/02/21 10/27/23 History insulin aspart U-100 100 unit/mL 6 unit subcut AC 04/02/21 10/27/23 History (3 mL) subcutaneous pen (Novolog FlexPen U-100 Insulin aspart) insulin detemir U-100 100 unit/mL 80 unit subcut BID 04/02/21 10/27/23 History (3 mL) subcutaneous pen (Levemir FlexTouch U-100 Insulin) lisinopril 30 mg tablet 30 mg PO QAM 04/02/21 10/27/23 History metformin 1,000 mg tablet 1,000 mg PO BID 04/02/21 10/27/23 History metoprolol succinate 50 mg 50 mg PO QAM 04/02/21 10/27/23 History tablet,extended release 24 hr nitroglycerin 0.4 mg sublingual 0.4 mg buccal DIRECTED PRN 04/02/21 10/27/23 History tablet Chest Pain rosuvastatin 10 mg tablet (Crestor) 10 mg PO DAILY 04/02/21 10/27/23 History cefprozil 250 mg tablet 0 mg TID 01/12/23 10/27/23 History clopidogrel 75 mg tablet 75 mg PO DAILY 01/12/23 10/27/23 History cyclobenzaprine 5 mg tablet 5 mg PO TID 01/12/23 10/27/23 History metronidazole 500 mg tablet 500 mg PO TID 01/12/23 10/27/23 History nortriptyline 25 mg capsule 0 mg PO DAILY 01/12/23 10/27/23 History pantoprazole 40 mg tablet,delayed 40 mg PO DAILY 01/12/23 10/27/23 History release (Protonix) Patient History Medical History COPD (chronic obstructive pulmonary disease) Chronic respiratory failure CKD (chronic kidney disease) stage 2, GFR 60-89 ml/min Coronary artery disease Pulmonary hypertension CHF (congestive heart failure) BETTE (obstructive sleep apnea) Type 2 diabetes mellitus Hyperlipidemia Hypertension Family History Other Family history non-contributory Social History Smoking Status: Former smoker Tobacco Type: Cigarettes Cigarettes Per Day: na; Smoking End Date: 15-20 years ago; Second Hand Exposure: Yes (son); Do You Dip or Chew Tobacco: No; Hx Alcohol Use: Yes (rarely) Hx Substance Use: No Preferred Language: Sammarinese Communication Ability: Effective International First Officer Required: No Beliefs That Will Affect Care: None Current Living Situation: Family Current Living Situation Comment: with son and daughter inlaw How many Children do You have: 5 Other Information That Helps Us Care for You: No Feels Safe at Home: Yes Safety Concerns: Feels Safe At This Time Assistive Devices: Cane and Oxygen - Continuous Physical Exam Physical Exam: NAD 6L NC Lower extremity cellulitis to ankle 2 large black eschar lesions Results & Data Vital Signs (Past 12 Hours) Vital Signs Temp Pulse Pulse Resp BP BP Pulse Ox 12/09/23 08:20 107 H 12/09/23 07:48 37.0 C 104 H 20 116/77 94 12/09/23 06:30 37.8 C H 12/09/23 04:58 38.2 C H 114 H 20 107/65 94 12/09/23 00:34 105 H 12/08/23 23:45 37.6 C H 103 H 20 113/75 94 12/08/23 23:31 O2 Del Method O2 Flow Rate 12/09/23 08:20 12/09/23 07:48 Nasal Cannula 6 12/09/23 06:30 12/09/23 04:58 Nasal Cannula 6.5 12/09/23 00:34 12/08/23 23:45 Nasal Cannula 6.5 12/08/23 23:31 Nasal Cannula 6
[2023-12-09] MEDS: LACTATED RINGER'S 1,000 ML IV SCH ×2 (10:15→16:48)
[2023-12-09 10:57] LABS: ANTI-Xa, UFH(UnfractionatedHep 0.13 IU/ml (0.3-0.7)
--- NOTE | 2023-12-09 11:21 | Anesthesiology Consultation ---
Date of Service December 09, 2023 Assessment & Plan Chart Review Chart Review: Acceptable Risk for Surgery and Patient NOT seen in Pre Admission Testing Consults Requested none ASA [id number] Proposed Anesthesia Anesthesia Type: General Risk / Benefits Reviewed With: PT / POA / Parent / Guardian, Accepts Plan and Informed Consent Obtained History Surgery Operation Date: 12/09/23 11:10 Proposed Procedures p Right Lower Extremity Thrombectomy, Possible Femoral Popliteal Bypass - Shahab Greenberg MD Height/Weight Height: 5 ft 8 in Weight: 107 kg Allergies Allergy/AdvReac Type Severity Reaction Status Date / Time empagliflozin Allergy Intermediate Nausea, Verified 10/27/23 10:36 [From Jardiance] Dizziness Medications Home Medications Medication Instructions Recorded Confirmed Last Taken aspirin 81 mg tablet,delayed 81 mg PO QAM 04/02/21 10/27/23 10/27/23 08:00 release furosemide 40 mg tablet 40 mg PO QAM 04/02/21 10/27/23 10/27/23 08:00 glyburide 5 mg tablet 5 mg PO BID 04/02/21 10/27/23 10/26/23 20:00 insulin aspart U-100 100 unit/mL 6 unit subcut AC 04/02/21 10/27/23 01/11/23 (3 mL) subcutaneous pen (Novolog FlexPen U-100 Insulin aspart) insulin detemir U-100 100 unit/mL 80 unit subcut BID 04/02/21 10/27/23 10/27/23 08:00 (3 mL) subcutaneous pen (Levemir FlexTouch U-100 Insulin) lisinopril 30 mg tablet 30 mg PO QAM 04/02/21 10/27/23 10/27/23 08:00 metformin 1,000 mg tablet 1,000 mg PO BID 04/02/21 10/27/23 10/25/23 20:00 metoprolol succinate 50 mg 50 mg PO QAM 04/02/21 10/27/23 10/27/23 08:00 tablet,extended release 24 hr nitroglycerin 0.4 mg sublingual 0.4 mg buccal DIRECTED PRN 04/02/21 10/27/23 Unknown tablet Chest Pain rosuvastatin 10 mg tablet (Crestor) 10 mg PO DAILY 04/02/21 10/27/23 10/27/23 08:00 cefprozil 250 mg tablet 0 mg TID 01/12/23 10/27/23 01/12/23 clopidogrel 75 mg tablet 75 mg PO DAILY 01/12/23 10/27/23 10/27/23 08:00 cyclobenzaprine 5 mg tablet 5 mg PO TID 01/12/23 10/27/23 10/26/23 20:00 metronidazole 500 mg tablet 500 mg PO TID 01/12/23 10/27/23 01/12/23 nortriptyline 25 mg capsule 0 mg PO DAILY 01/12/23 10/27/23 10/26/23 20:00 pantoprazole 40 mg tablet,delayed 40 mg PO DAILY 01/12/23 10/27/23 10/27/23 08:00 release (Protonix) Active Medications Generic Name Dose Route Start Last Admin Trade Name Freq PRN Reason Stop Dose Admin Acetaminophen 1,000 mg 12/07/23 21:00 12/08/23 21:26 Acetaminophen 500 Mg Tab PO 01/06/24 20:59 1,000 mg TID WENDY Administration Aspirin 81 mg 12/08/23 09:00 12/08/23 08:27 Aspirin 81 Mg Ectab PO 01/07/24 08:59 81 mg QAM WENDY Administration Clopidogrel Bisulfate 75 mg 12/08/23 09:00 12/08/23 08:27 Clopidogrel Bisulfate 75 Mg Tab PO 01/07/24 08:59 75 mg DAILY WENDY Administration Heparin Sodium/Dextrose 25,000 units in 500 mls @ 45 mls/hr 12/07/23 17:00 12/09/23 10:13 Heparin Sodium/Dextrose IV 01/06/24 16:59 2,250 units/hr .Q11H7M WENDY 45 mls/hr Administration Protocol 2,250 UNITS/HR Piperacillin Sod/Tazobactam 100 mls @ 25 mls/hr 12/07/23 22:00 12/09/23 06:45 Sod 4.5 gm/ Dextrose IV 12/14/23 21:59 25 mls/hr Q8H WENDY Administration Protocol Clindamycin Phosphate 900 mg in 50 mls @ 100 mls/hr 12/07/23 22:00 12/09/23 06:49 Cleocin/D5w IV 12/14/23 21:59 Infused Q8H WENDY Infusion Lactated Ringer's 1,000 mls @ 80 mls/hr 12/09/23 08:00 12/09/23 10:15 Lr IV 12/09/23 20:29 80 mls/hr .[id number] WENDY Administration Insulin Aspart 0 units 12/07/23 21:45 12/09/23 06:45 Insulin Aspart Per Unit Charge SC 01/06/24 21:44 2 units ACHS WENDY Administration Protocol Insulin Glargine 0 units 12/08/23 21:00 12/09/23 10:13 Lantus Per Unit Charge SC 01/07/24 20:59 30 units BID WENDY Administration Protocol Metoprolol Succinate 50 mg 12/08/23 09:00 12/08/23 08:27 Metoprolol Succ 50mg Ext Rel Tab PO 01/07/24 08:59 50 mg QAM WENDY Administration Nortriptyline HCl 25 mg 12/07/23 22:00 12/08/23 21:26 Nortriptyline Hcl 25 Mg Cap PO 01/06/24 21:59 25 mg HS WENDY Administration Oxycodone HCl 5 mg 12/07/23 20:54 12/08/23 05:26 Oxycodone Hcl Ir 5 Mg Tab (Immediate Release) PO 12/21/23 20:53 5 mg Q4H PRN Administration MODERATE Pain (4,5,6) & Pre PT Pantoprazole Sodium 40 mg 12/08/23 09:00 12/08/23 08:27 Pantoprazole 40 Mg Tab PO 01/07/24 08:59 40 mg DAILY WENDY Administration NPO Date Last Intake of Fluids: 12/08/23 Time Last Intake of Fluids: 21:00 Date Last Intake of Solids: 12/08/23 Time Last Intake of Solids: 19:00 Past Medical History Medical History COPD (chronic obstructive pulmonary disease) Chronic respiratory failure CKD (chronic kidney disease) stage 2, GFR 60-89 ml/min Coronary artery disease Pulmonary hypertension CHF (congestive heart failure) BETTE (obstructive sleep apnea) Type 2 diabetes mellitus Hyperlipidemia Hypertension Past Family History Family History Other Family history non-contributory Past Anesthesia History No Hx of Anesthesia Complications and No Family Hx of Anesthesia Complications Social History Smoking Status: Former smoker Smoking cigarettes per day: na Do You Dip or Chew Tobacco: No Smoking End Date: 15-20 years ago Hx Alcohol Use: Yes (rarely) alcohol intake frequency: holidays/special occasions only Hx Substance Use: No substance use type: does not use Substance Use Type Other:: na Last Used Substance Other:: na Review of Systems ROS Unobtainable: All systems reviewed & are unremarkable except as noted in HPI & below Physical Exam Vital Signs Last Vital Signs Temp 37.3 C 12/09/23 10:27 Pulse 103 H 12/09/23 10:27 Resp 20 12/09/23 10:27 BP 124/85 12/09/23 10:27 Pulse Ox 97 12/09/23 10:27 O2 Del Method Room Air, Nasal Cannula 12/09/23 10:27 O2 Flow Rate 6 12/09/23 10:27 ENMT Mouth: + edentulous; no TMJ abnormality Thyromental Distance: > or= 3.5 Finger Breadths Mallampati Class: IV Neck normal visual inspection and trachea midline; neck extension not limited Respiratory normal respiratory effort Auscultation: lungs clear to auscultation bilaterally Cardiovascular Rate/Rhythm: regular rate and regular rhythm Heart Sounds: no murmur Musculoskeletal Spine: normal cervical ROM Extremities: full ROM of extremities Neurologic moves all extremities Psychiatric Orientation: alert and oriented x 3 Testing Laboratory Results 12/08/23 05:56 12/08/23 05:56 PT 11.2 Seconds (9.0-12.0) 12/07/23 15:27 INR 1.0 (0.9-1.1) 12/07/23 15:27 APTT 30 Seconds (21-31) 12/07/23 15:27 Hemoglobin A1c 8.1 % (4.5-5.6) H 12/08/23 05:56 Blood Type O Positive 12/08/23 14:14 Antibody Screen NEGATIVE 12/08/23 14:14 12/07/23 16:53 Aerobic Blood Culture - Preliminary Blood No growth in Aerobic bottle after 24 hours. Anaerobic Blood Culture - Preliminary Gram positive cocci clusters 12/07/23 16:50 Aerobic Blood Culture - Preliminary Blood No growth in Aerobic bottle after 24 hours. Anaerobic Blood Culture - Preliminary Gram positive cocci clusters 12/09/23 12/09/23 10:34 06:41 POC Glucose 145 H 159 H Electrocardiogram Date: 12/07/23 sinus tachycardia @124, RBBB, septal infarct. Chest X-Ray Findings: no cardiomegaly Echocardiogram Date: 04/03/21 EF: 60-65 severely dilated right ventricle and atrium
[2023-12-09] MEDS ORDERED: ONDANSETRON INJ 2 MG/ML 2 ML VIAL IV PRN (11:25)
[2023-12-09] MEDS ORDERED: fentaNYL citrate PF 100 MCG/2 ML VIAL IV PRN (11:25)
[2023-12-09] MEDS ORDERED: HYDROmorphone INJ 1 MG/ML SYRINGE IV PRN (11:25)
[2023-12-09] MEDS ORDERED: ATROPINE SULFATE 0.1 MG/ML 10ML SYR IV PRN (11:25)
[2023-12-09] MEDS ORDERED: ePHEDrine sulfate 50 MG/ML AMP IV PRN (11:25)
[2023-12-09] MEDS ORDERED: ONDANSETRON INJ 2 MG/ML 2 ML VIAL ONE (12:05)
[2023-12-09] MEDS ORDERED: PHENYLEPHRINE HCL 25 MG/250 ML NSS IV ONE (12:05)
[2023-12-09] MEDS ORDERED: PROPOFOL IV EMULSION 10 MG/ML 20 ML VIAL IV ONE (12:05)
[2023-12-09] MEDS ORDERED: GLYCOPYRROLATE 0.2 MG/ML VIAL ONE (12:05)
[2023-12-09] MEDS ORDERED: LIDOCAINE 2% 2 ML VIAL/AMP(20MG/ML) INFIL ONE (12:05)
[2023-12-09] MEDS ORDERED: ROCURONIUM BROMIDE 10 MG/ML 5 ML VIAL IV ONE (12:05)
[2023-12-09] MEDS ORDERED: ALBUMIN HUMAN 5% 12.5 GM/250 ML VIAL IV ONE (12:50)
[2023-12-09] MEDS ORDERED: ALBUTEROL HFA 8 GM INHALER INH ONE (13:17)
[2023-12-09] MEDS ORDERED: VASOPRESSIN 20 UNIT/ML VIAL ONE (13:17)
[2023-12-09] MEDS ORDERED: ACETAMINOPHEN 1000 MG/100 ML IV IV ONE (13:40)
[2023-12-09] MEDS ORDERED: ePHEDrine sulfate 50 MG/5 ML SYR ONE (13:51)
[2023-12-09] MEDS: HEPARIN (PORCINE) 1000 UNIT/ML 10 ML (CATH LAB USE ONLY) ONE (13:58)
[2023-12-09] MEDS: ceFAZolin 330 MG/ML 1 GM VIAL ONE (14:04)
[2023-12-09] MEDS: GELATIN SPONGE SZ 100 ONE (14:05)
[2023-12-09] MEDS: THROMBIN FOR SOLN 20000 UNIT KIT ONE (14:05)
[2023-12-09] MEDS ORDERED: SUGAMMADEX SODIUM 200 MG/2 ML VIAL IV ONE (14:06)
[2023-12-09] MEDS: VISIPAQUE IV ONE (14:06)
--- NOTE | 2023-12-09 14:28 | Post Operative Brief Note ---
Immediate Post Op Note v1 Date of Surgery December 09, 2023 Pre & Post Diagnosis Operation Date: 12/09/23 11:10 Pre-Op Diagnosis: Right Ischemic Foot Post-Op Diagnosis: Right Ischemic Foot I identified the patient and participated in the time-out.: Yes Procedure Operation Date: 12/09/23 11:10 Actual Procedures p Right Lower Extremity Arteriogram, Attempted Right Lower Extremity Thrombectomy - Shahab Greenberg MD Surgeon Shahab Greenberg MD Cable Installation Technician MD Nino LDurgaMinarchick,PAC Estimated Blood Loss 100 Findings Consistent with Post-Op Diagnosis Drains Choi Catheter Anesthesia Type General Complications none Disposition Accompanied Patient To Recovery: No Disposition: Recovery Room
[2023-12-09] MEDS ORDERED: PHENYLEPHRINE/NSS 25 MG/250 ML BAG IV PRN (14:31)
--- NOTE | 2023-12-09 14:34 | Operative Report ---
Post Operative Report Pre & Post Diagnosis Operation Date: 12/09/23 11:10 Right SFA exposure, Right lower extremity diagnostic angiogram, RLE open thrombectomy of SFA and popliteal artery I identified the patient and participated in the time-out.: Yes Procedure Operation Date: 12/09/23 11:10 Right SFA exposure, Right lower extremity diagnostic angiogram, RLE open thrombectomy of SFA and popliteal artery Surgeon Shahab Greenberg MD Crm Coordinator Domonique John MD Estimated Blood Loss 100 Findings See Below Occlusion of distal SFA, popliteal stent with very distal reconstitution of the PT with no foot outflow Fluids See anesthesia record Specimens None Drains none Anesthesia Type General Complications none Disposition Accompanied Patient To Recovery: Yes Disposition: Surgical ICU Indications right lower extremity critical limb ischemia Description of Procedure Patient was brought to the operating room and placed supine on the OR table. All bony prominences were appropriately padded. General anesthesia was induced after appropriate EKG and pulse ox monitoring was obtained by the anesthesia team. A surgical time out was performed which identified the patient, procedure, laterality, allergies, and any necessary equipment that would be needed. The patient was prepped and draped sterilely such that the right thigh and femoral region were the center point of the draping. A 15 blade was utilized to make a 5 cm incision over the mid thigh. Blunt and sharp dissection was performed using Metzenbaum scissors as well as electrocautery to go through the soft tissues identifying the sartorius muscle and tracking underneath the sartorius muscle to locate the superficial femoral artery. The superficial femoral artery did have a clamp of the location however calcification was noted along its length. The femoral vein was controlled with a vessel loop for retraction purposes and the superficial femoral artery was controlled proximally and distally with clamps and elastic Vesseloops. A 11 blade was utilized to make a transverse arteriotomy and Reyes scissors was used to widen the arteriotomy. Strong pulsatile forward bleeding was noted from the SFA proximally. Backbleeding was noted from the distal SFA and a #3 Natalee catheter was passed distally below the knee there was heavy resistance as the Natalee catheter was removed and no visible clot burden was retrieved. A 8 Canadian sheath was placed in the distal SFA pointing towards the foot and angiography was obtained that showed a distal SFA occlusion occlusion of the popliteal stent and very distal reconstitution of the PT at the level of the ankle but no outflow in the foot. An 0.018 wire was passed through the 8 Canadian sheath and over the wire Natalee 4 Canadian balloon was passed distally. Again when dragging back the Natalee balloon there was heavy resistance and no clot burden was retrieved. Repeat angiogram was performed that again demonstrated the same occlusion. At this time the 8 Canadian sheath was removed and the SFA arteriotomy was repaired using 5 or 6 interrupted 6-0 Prolene sutures the SFA was hemostatic once the sutures were tied and the soft tissues were closed using running 3-0 Vicryl sutures and the skin was stapled. The patient was noted to have hypoxia during the procedure and the anesthesia team continues to optimize the patient from a ventilatory standpoint. The patient had above expected urine output during the presentation. The patient will proceed to the surgical ICU for hemodynamic monitoring as well as respiratory management as the patient remains intubated. In terms of radiation 1.1min of fluro time was used and 13 mGy. I, Dr. Greenberg was present and scrubbed for the entire procedure. I attest to the content of the Intraoperative Record and any orders documented therein. Any exceptions are noted below.
--- NOTE | 2023-12-09 15:29 | Anesthesiology Progress Note ---
Date of Service December 09, 2023 Anesthesia Post Procedure Vital Signs Vital Signs: Temp Pulse Pulse Pulse Resp BP BP 12/09/23 10:27 37.3 C 103 H 20 124/85 12/09/23 08:20 107 H 12/09/23 07:48 37.0 C 104 H 20 116/77 12/09/23 06:30 37.8 C H 12/09/23 04:58 38.2 C H 114 H 20 107/65 12/09/23 00:34 105 H 12/08/23 23:45 37.6 C H 103 H 20 113/75 12/08/23 23:31 12/08/23 19:38 37.2 C 101 H 18 119/74 Pulse Ox O2 Del Method O2 Flow Rate 12/09/23 10:27 97 Room Air, Nasal Cannula 6 12/09/23 08:20 12/09/23 07:48 94 Nasal Cannula 6 12/09/23 06:30 12/09/23 04:58 94 Nasal Cannula 6.5 12/09/23 00:34 12/08/23 23:45 94 Nasal Cannula 6.5 12/08/23 23:31 Nasal Cannula 6 12/08/23 19:38 98 Nasal Cannula 6.5 Transfer of Care Handoff Completed per policy Notes Mental Status: alert / awake / arousable Patient Amnestic to Procedure: Yes Nausea / Vomiting: adequately controlled Pain: adequately controlled Airway Patency, RR, SpO2: stable & adequate BP & HR: stable & adequate Hydration State: stable & adequate Anesthetic Complications: no major complications apparent and Pt Satisfied with anesthetic care Notes: Attempted extubation at end of procedure however patient with acute hypoxic respiratory failure in setting of chronic respiratory failure and COPD. Decision made to reintubate patient and transfer to ICU for further care.
[2023-12-09] MEDS ORDERED: STAT IV Infusion **Titration per Protocol STA ×3 (15:33→19:44)
--- NOTE | 2023-12-09 16:03 | XRay Report ---
XR chest 1V portable HISTORY: 68 years-old Male s/p intubation acute respiratory failure COMPARISON: 12/07/2023 TECHNIQUE: AP view of the chest FINDINGS: Cardiac silhouette is enlarged. Endotracheal tube overlies midline, 3 cm superior to the sobia. Pulm onary vascular congestion with only progressed interstitial coarsening. No pneumothorax. Probable sma ll pleural effusions. Unchanged right basilar atelectasis versus scarring. Degenerative changes of th e shoulders and spine. IMPRESSION: 1. Endotracheal tube terminates 3 cm superior to the sobia. 2. Cardiomegaly with suggestion of pulmonary edema. 3. Probable small pleural effusions with left greater than right bibasilar opacities. ACT 112: Negative or not required by law. The above report was generated using voice recognition software. It may contain grammatical, syntax o r spelling errors. Electronically signed by: Jas Ruiz M.D. 12/09/2023 4:01 PM
[2023-12-09 16:41] LABS: Basophils # (auto) 0.08 K/uL (0.00-0.20); Basophils % (auto) 0.4 %; Eosinophils # (auto) 0.25 K/uL (0.00-0.50); Eosinophils % (auto) 1.2 %; Hematocrit (blood only) 32.1 % (42.0-52.0); Hemoglobin 9.6 g/dl (14.0-18.0); Immature Granulocytes # (auto) 0.18 K/uL (0.01-0.20); Immature Granulocytes % (auto) 0.8 %; Lymphocytes # (auto) 1.89 K/uL (1.20-3.40); Lymphocytes % (auto) 8.9 %; Mean Corpuscular Hgb Conc 29.9 g/dL (32.0-36.0); Mean Platelet Volume 10.4 fL (9.4-12.4); Monocytes # (auto) 1.63 K/uL (0.11-0.59); Monocytes % (auto) 7.7 %; Neutrophils # (auto) 17.19 K/uL (1.40-6.50); Platelet Count 380 K/uL (130-400); RDW Coefficient of Variation 15.4 % (11.5-14.5); RDW Standard Deviation 49.2 fL (36.4-46.3); Red Blood Count 3.69 M/uL (4.70-6.10); White Blood Count 21.22 K/ul (4.8-10.8)
[2023-12-09] MEDS: fentaNYL citrate 2,500 MCG/250 ML BAG IV SCH (16:45)
[2023-12-09] MEDS: fentaNYL BOLUS from BAG IV PRN (16:46)
[2023-12-09] MEDS: NOREPINEPHRINE/D5W 4 MG/250 ML IV ONE (16:47)
[2023-12-09 16:52] LABS: Albumin Globulin Ratio 1.1 (0.9-2); Albumin Level 3.3 gm/dl (3.4-5.0); BUN Creatinine Ratio 23.9 (10-20); Bilirubin,Total 0.5 mg/dl (0.2-1.0); Calcium 8.3 mg/dl (8.6-10.3); Creatinine Clr Calc Pharmacy 91.1 ml/min; Est GFR (African American) 98.7 ml/min; Est GFR (Non-African American) 85.2 ml/min; Globulin 2.9 gm/dl (2.5-4.0); Potassium 4.1 mmol/L (3.5-5.1); Total Protein 6.2 gm/dl (6.0-8.3)
--- NOTE | 2023-12-09 16:56 | Procedure Note ---
Procedure Note Date of Service December 09, 2023 Note INTERNAL JUGULAR CENTRAL LINE PROCEDURE NOTE: Procedure: Internal Jugular Central Line Placement Indication: Central Drug Administration, Poor Venous Access, Multiple Lab Draws Necessary, etc. Anesthesia: Propofol drip/8 mm lidocaine 1% Emergency consent was implied given the patient's shock and vasopressor requirement. Patient was intubated and sedated and unable to give consent. Family was not readily available at the time prior to the procedure. A time-out was completed verifying correct patient, procedure, site, positioning, and implants(s) or special equipment if applicable. Patients right neck was cleansed and draped in the typical sterile fashion using Chloraprep. The Internal Jugular Vein and Carotid Artery were identified using ultrasound. The superficial tissue was anesthetized using 8 mL of 1% lidocaine without epinephrine under direct visualization with the ultrasound. After adequate anesthetization was achieved, the Internal Jugular vein was cannulated under direct ultrasound guidance using an introducer needle on a syringe. Good venous blood return was maintained prior to removal of syringe from introducer needle. Using Seldinger Technique, a guide wire was advanced through the introducer needle without resistance. The introducer needle was removed and ultrasound images were obtained of the guide wire within the Internal Jugular Vein and saved to the patients medical record. A small incision was made in penetrating fashion at the guide wire insertion site utilizing an 11 blade scalpel. The dilator was advanced to the vessel without resistance. The dilator was exchanged for the triple lumen catheter which was advanced into the vessel without resistance. The guide wire was removed intact from the catheter without issue. Claves were placed on each catheter tip with confirmation of good blood flow from each lumen. Each port was easily flushed with sterile saline. The catheter was placed at 50 cm and sutured in place. BioPatch was applied to the catheter and a sterile Tegaderm dressing was applied over the catheter with careful attention to sterility. Patient tolerated procedure well. No immediate complications were met. Postprocedure chest x-ray is pending. Ultrasound guidance was utilized throughout the procedure. Coding CPT Codes Tubes, Drains, and Vasc Access - Tubes, Drains, and Vasc Access: [id number] Place catheter in vein superior or inferior vena cava ([id number]) Tubes, Drains, and Vasc Access - Tubes, Drains, and Vasc Access: [id number] Ultrasound Guidance For Vascular ([id number]) [facility] [place] Procedure Codes (Charges) Tubes, Drains, and Vasc Access Procedure 1: Tubes, Drains, and Vasc Access: [id number] Place catheter in vein superior or inferior vena cava Procedure 2: Tubes, Drains, and Vasc Access: [id number] Ultrasound Guidance For Vascular
[2023-12-09] MEDS: NOREPINEPHRINE/D5W 4 MG/250 ML PLCT IV SCH (17:09)
--- NOTE | 2023-12-09 17:09 | Hospitalist Progress Note ---
Date of Service December 09, 2023 Assessment & Plan (1) Ischemic foot: Plan: Occluded right popliteal artery Failed attempt of thrombectomy today 12/08 Vascular surgery plans on amputation next week Critical care on board as the patient is intubated post procedure today (2) Cellulitis of foot, right: Plan: No surgical emphysema clinically to suggest necrotizing fasciitis despite CT findings Daptomycin, Zosyn, clindamycin Patient is also bacteremic with Staphylococcus Infectious disease involved 2D echo ordered Follow-up on repeat blood cultures from today 12/08 (3) PAD (peripheral artery disease): Plan: ASA, clopidogrel Rosuvastatin on hold with daptomycin use Failed attempt of thrombectomy today 12/08 Will need amputation (4) Type 2 diabetes mellitus: Plan: No HbA1C, ordered with AM labs Outpatient on Levemir 60 units BID, Novolog 6 units AC, glyburide Consult pharmacy for glycemic control (5) BETTE (obstructive sleep apnea): Plan: Not on CPAP, on chronic O2 (6) Chronic respiratory failure: Plan: Chronic 4LPM O2, currently at baseline (7) CHF (congestive heart failure): Plan: Patient has CHFpEF Currently euvolemic Furosemide held pre-operatively (8) Hypertension: Plan: Continue metoprolol succinate Hold lisinopril, furosemide pre operatively (9) Pressure ulcer of right foot, unstageable: (10) Occlusion of right popliteal artery: (11) Acute and chronic respiratory failure: Plan: Currently vent dependent Managed by pulmonary (12) Bacteremia due to Staphylococcus: Plan: Foot source Infectious disease involved Continue IV antibiotics Plan Transferred to the ICU Spoke to family and updated them. Admission and Anticipated Discharge Date Admission Date: December 07, 2023 Subjective Patient went to the OR today. Had a failed attempt of right lower extremity thrombectomy. He was hypoxic postsurgery. He was intubated and transferred to the ICU. Review of Systems Review of Systems: Unobtainable due to endotracheal tube Physical Exam Physical Exam: General: Intubated, sedated Heart: S1, S2/regular rate and rhythm, no murmur rubs or gallops Lungs: Good air entry bilaterally. No adventitious breath sounds heard Abdomen: Soft/nontender/nondistended. No hepatosplenomegaly Extremities: No clubbing/cyanosis. Cellulitis improved. Ulcer in the dorsum of the foot. Behavior: Unable to assess Results & Data Results & Data Vital Signs (Past 12 Hours) Vital Signs Temp Pulse Pulse Pulse Resp BP BP 12/09/23 16:05 12/09/23 15:15 80 16 12/09/23 10:27 37.3 C 103 H 20 124/85 12/09/23 10:10 112 H 14 12/09/23 10:00 104 H 17 12/09/23 09:52 107 H 23 12/09/23 09:43 100 H 22 12/09/23 09:31 103 H 16 12/09/23 09:21 74 19 12/09/23 09:10 101 H 16 12/09/23 09:00 103 H 14 12/09/23 08:51 103 H 12 12/09/23 08:40 102 H 14 12/09/23 08:32 103 H 18 12/09/23 08:20 106 H 14 12/09/23 08:20 107 H 12/09/23 08:10 105 H 19 12/09/23 08:00 104 H 13 12/09/23 07:50 105 H 18 12/09/23 07:48 37.0 C 104 H 20 116/77 12/09/23 07:40 104 H 14 12/09/23 07:30 106 H 17 12/09/23 07:23 110 H 21 12/09/23 07:10 107 H 21 12/09/23 07:00 106 H 13 12/09/23 06:51 107 H 13 12/09/23 06:40 108 H 18 12/09/23 06:30 37.8 C H Pulse Ox O2 Del Method O2 Flow Rate FiO2 12/09/23 16:05 Nasal Cannula 6 12/09/23 15:15 94 75 12/09/23 10:27 97 Room Air, Nasal Cannula 6 12/09/23 10:10 12/09/23 10:00 12/09/23 09:52 12/09/23 09:43 12/09/23 09:31 12/09/23 09:21 12/09/23 09:10 12/09/23 09:00 12/09/23 08:51 12/09/23 08:40 12/09/23 08:32 12/09/23 08:20 12/09/23 08:20 12/09/23 08:10 12/09/23 08:00 12/09/23 07:50 12/09/23 07:48 94 Nasal Cannula 6 12/09/23 07:40 12/09/23 07:30 12/09/23 07:23 12/09/23 07:10 12/09/23 07:00 12/09/23 06:51 12/09/23 06:40 12/09/23 06:30 Laboratory Results Abnormal lab results 12/08/23 12/08/23 12/08/23 Range/Units 18:11 20:23 20:39 WBC (4.8-10.8) K/ul RBC (4.70-6.10) M/uL Hgb (14.0-18.0) g/dl Hct (42.0-52.0) % MCHC (32.0-36.0) g/dL RDW Std Deviation (36.4-46.3) fL RDW Coeff of Laryr (11.5-14.5) % Neut # (Auto) (1.40-6.50) K/uL [facility] # (Auto) (0.11-0.59) K/uL Heparin Anti-Xa, Unfract 0.13 L (0.3-0.7) IU/ml Sodium (136-145) mmol/L Chloride (98-107) mmol/L BUN/Creatinine Ratio (10-20) Glucose (70-99(Fasting)) mg/dl POC Glucose 162 H 153 H (70-99) mg/dl Calcium (8.6-10.3) mg/dl Albumin (3.4-5.0) gm/dl 12/09/23 12/09/23 12/09/23 Range/Units 03:38 06:41 09:55 WBC (4.8-10.8) K/ul RBC (4.70-6.10) M/uL Hgb (14.0-18.0) g/dl Hct (42.0-52.0) % MCHC (32.0-36.0) g/dL RDW Std Deviation (36.4-46.3) fL RDW Coeff of Larry (11.5-14.5) % Neut # (Auto) (1.40-6.50) K/uL [facility] # (Auto) (0.11-0.59) K/uL Heparin Anti-Xa, Unfract 0.20 L 0.13 L (0.3-0.7) IU/ml Sodium (136-145) mmol/L Chloride (98-107) mmol/L BUN/Creatinine Ratio (10-20) Glucose (70-99(Fasting)) mg/dl POC Glucose 159 H (70-99) mg/dl Calcium (8.6-10.3) mg/dl Albumin (3.4-5.0) gm/dl 12/09/23 12/09/23 12/09/23 Range/Units 10:34 15:55 16:05 WBC 21.22 H (4.8-10.8) K/ul RBC 3.69 L (4.70-6.10) M/uL Hgb 9.6 L (14.0-18.0) g/dl Hct 32.1 L (42.0-52.0) % MCHC 29.9 L (32.0-36.0) g/dL RDW Std Deviation 49.2 H (36.4-46.3) fL RDW Coeff of Larry 15.4 H (11.5-14.5) % Neut # (Auto) 17.19 H (1.40-6.50) K/uL [facility] # (Auto) 1.63 H (0.11-0.59) K/uL Heparin Anti-Xa, Unfract (0.3-0.7) IU/ml Sodium 133 L (136-145) mmol/L Chloride 96 L (98-107) mmol/L BUN/Creatinine Ratio 23.9 H (10-20) Glucose 189 H (70-99(Fasting)) mg/dl POC Glucose 145 H 174 H (70-99) mg/dl Calcium 8.3 L (8.6-10.3) mg/dl Albumin 3.3 L (3.4-5.0) gm/dl PG Care Time/CCT Total # of Minutes Spent Total Time Spent with Patient: Total time spent is greater than 50% in coordination of care (as documented) at patient's floor/unit and/or counseling patient: Coding Level of Care Code 23020 SUB INP/OBS CARE 2/35MIN Diagnoses Ischemic foot I99.8 Cellulitis of foot, right L03.115 PAD (peripheral artery disease) I73.9 Type 2 diabetes mellitus E11.9 BETTE (obstructive sleep apnea) G47.33 Chronic respiratory failure J96.10 CHF (congestive heart failure) I50.9 Hypertension I10 Pressure ulcer of right foot, unstageable L89.890 Occlusion of right popliteal artery I70.201 Acute and chronic respiratory failure J96.20 Bacteremia due to Staphylococcus R78.81; B95.8
--- NOTE | 2023-12-09 17:25 | Critical Care Consultation ---
Date of Consultation December 09, 2023 Assessment & Plan (1) Acute and chronic respiratory failure: (2) Endotracheally intubated: (3) RVF (right ventricular failure): (4) Bacteremia due to Staphylococcus: (5) PAD (peripheral artery disease): (6) Septic shock: (7) Ischemic foot: Plan Medically complex 68-year-old male with a history of progressive vascular disease and ischemic right lower extremity admitted to the hospital with severe cellulitis and possible osteomyelitis of the right lower extremity. He was positive for bacteremia with Staphylococcus species. Currently on multiple antibiotics with ID consult pending. Underwent attempted revascularization of the right lower extremity which was unsuccessful. He was extubated in the OR and ultimately reintubated due to hypoxemic respiratory failure. He was also found to be in shock and is currently requiring vasopressors. He is now transferred to the ICU. Neurologic: Continue with propofol and fentanyl for control of agitation and pain control. Pulmonary: Patient with history of chronic hypoxic respiratory failure and now with acute on chronic hypoxic respiratory failure from RV dysfunction. Continue lung protective ventilation strategy. Wean FiO2 as able. Cardiovascular: Cardiac POCUS with dilated IVC, dilated RV and dilated LA. LVEF appears intact. No signs of pericardial effusion. Official echo pending. BNP currently low at 75 pg/mL. Troponin mildly elevated likely from demand ischemia. Will continue to trend. EKG without ischemic changes. Maintain maps above 65 mmHg. Continue norepinephrine infusion wean as tolerated. Gastrointestinal: NPO. OG tube in place. LFTs unremarkable. Renal: No current issues. On crystalloid infusion. BNP level and will hold on diuretics at this time. Infectious disease: Patient with staph species growing from blood. Currently on broad-spectrum antibiotics with clindamycin, Zosyn and daptomycin. There was initially concern for necrotizing fasciitis. Discussed with vascular surgeon who feels this is less likely as cellulitis has improved per his account. ID consult pending. Will need a formal TTE to evaluate for vegetations. Repeat blood cultures ordered. Possible element of septic shock. Hematologic: Patient with ischemic right lower extremity. Revascularization attempt by vascular surgery 12/09/2023 was unsuccessful. Discussed antiplatelet and anticoagulation with vascular surgeon he does not feel further anticoagulation is necessary at this point as his limb is not salvageable. Plan is for BKA next week progressive surgery. Endocrine: Maintain euglycemia. Lines and tubes: Choi catheter in place. Right IJ CVL placed 12/09/2023. VTE prophylaxis: SCDs. If no evidence of bleeding, will start DVT prophylaxis tomorrow. CODE STATUS: Full Family at bedside: Updated by hospital service Disposition: ICU. Care coordinated with vascular surgeon, hospitalist service and bedside RN. I have personally spent 59 minutes of critical care time in the direct management of this patient. This is a life/limb threatening event. This includes time spent evaluating patient, direct bedside care, chart review, placing orders, interpretation of diagnostic studies, discussion with consultants, patient, and family members, as well as other required patient management activities. This time is exclusive of all separately billable procedures, and teaching time and separate from and in addition to any other critical care service time. Thank you for allowing us to participate in the care of this patient. History of Present Illness Reason for Consultation: Acute hypoxic respiratory failure Attending Physician: Delia Banks MD History of Present Illness 68-year-old male with a history of peripheral vascular disease who presented to the ER 12/07/2023 due to discoloration of his foot and recommendation of the wound care clinic to present to the ER. Patient has an extensive vascular history to his right leg as noted per prior notes including the HPI and vascular consultation. Right lower extremity open thrombectomy of SFA and popliteal artery were attempted, but aborted due to inability to pass a Natalee catheter by vascular surgeon. Patient was closed and sent to PACU. He was extubated in the OR. While in PACU, he developed severe shortness of breath and hypoxemia and required reintubation by anesthesia staff. History is unobtainable from the patient as he is currently intubated and sedated. I had discussion with vascular surgeon at the ICU at bedside and bedside nursing. Patient was also hypotensive and requiring phenylephrine and norepinephrine infusion at the time of ICU transfer. Phenylephrine was weaned off. I placed the right IJ central line emergently due to need for more definitive vascular access for vasopressors. Choi catheter is currently in place. Patient is on a propofol infusion. Fentanyl was added for pain. Patient was also found to be bacteremic with Staphylococcus species earlier this admission and ID is consulted. Patient is currently on daptomycin, Zosyn and clindamycin. I performed a [id number] ultrasound. EF appeared to be relatively intact. RV was dilated. LA was dilated. No significant pericardial effusion was seen. Aortic valve appears mildly calcified. Allergies Allergy/AdvReac Type Severity Reaction Status Date / Time empagliflozin Allergy Intermediate Nausea, Verified 10/27/23 10:36 [From Jardiance] Dizziness Home Medications Medication Instructions Recorded Confirmed Type aspirin 81 mg tablet,delayed 81 mg PO QAM 04/02/21 10/27/23 History release furosemide 40 mg tablet 40 mg PO QAM 04/02/21 10/27/23 History glyburide 5 mg tablet 5 mg PO BID 04/02/21 10/27/23 History insulin aspart U-100 100 unit/mL 6 unit subcut AC 04/02/21 10/27/23 History (3 mL) subcutaneous pen (Novolog FlexPen U-100 Insulin aspart) insulin detemir U-100 100 unit/mL 80 unit subcut BID 04/02/21 10/27/23 History (3 mL) subcutaneous pen (Levemir FlexTouch U-100 Insulin) lisinopril 30 mg tablet 30 mg PO QAM 04/02/21 10/27/23 History metformin 1,000 mg tablet 1,000 mg PO BID 04/02/21 10/27/23 History metoprolol succinate 50 mg 50 mg PO QAM 04/02/21 10/27/23 History tablet,extended release 24 hr nitroglycerin 0.4 mg sublingual 0.4 mg buccal DIRECTED PRN 04/02/21 10/27/23 History tablet Chest Pain rosuvastatin 10 mg tablet (Crestor) 10 mg PO DAILY 04/02/21 10/27/23 History cefprozil 250 mg tablet 0 mg TID 01/12/23 10/27/23 History clopidogrel 75 mg tablet 75 mg PO DAILY 01/12/23 10/27/23 History cyclobenzaprine 5 mg tablet 5 mg PO TID 01/12/23 10/27/23 History metronidazole 500 mg tablet 500 mg PO TID 01/12/23 10/27/23 History nortriptyline 25 mg capsule 0 mg PO DAILY 01/12/23 10/27/23 History pantoprazole 40 mg tablet,delayed 40 mg PO DAILY 01/12/23 10/27/23 History release (Protonix) Patient History Medical History (Updated 12/09/23 @ 17:17 by Car Mata MD) Septic shock Endotracheally intubated RVF (right ventricular failure) COPD (chronic obstructive pulmonary disease) Chronic respiratory failure CKD (chronic kidney disease) stage 2, GFR 60-89 ml/min Coronary artery disease Pulmonary hypertension CHF (congestive heart failure) BETTE (obstructive sleep apnea) Type 2 diabetes mellitus Hyperlipidemia Hypertension Family History Other Family history non-contributory Social History Smoking Status: Former smoker Tobacco Type: Cigarettes Cigarettes Per Day: na; Smoking End Date: 15-20 years ago; Second Hand Exposure: Yes (son); Do You Dip or Chew Tobacco: No; Hx Alcohol Use: Yes (rarely) Hx Substance Use: No Preferred Language: Kosovan Communication Ability: Effective Immigration Inspector Required: No Beliefs That Will Affect Care: None Current Living Situation: Family Current Living Situation Comment: with son and daughter inlaw How many Children do You have: 5 Other Information That Helps Us Care for You: No Feels Safe at Home: Yes Safety Concerns: Feels Safe At This Time Assistive Devices: Cane and Oxygen - Continuous Review of Systems Review of Systems: Unobtainable due to endotracheal tube Physical Exam Physical Exam: Constitutional: Patient appears to be of their stated age. Patient is in no apparent distress. Patient is well-developed. Eyes: Pupils are equal round and reactive to light. Conjunctivae are normal. Anicteric sclera. Ears nose, mouth and throat: Endotracheally intubated. Neck: Trachea is midline. Visual inspection is normal. Respiratory: Clear to auscultation bilaterally. No use of accessory muscles. No significant clubbing noted. Cardiovascular: Regular rate and rhythm. Right lower extremity without distal pulses palpated. Necrotic eschar noted over the right foot. Cellulitic changes noted as well. Gastrointestinal: Normal bowel sounds, soft, nontender and nondistended. No hepatosplenomegaly noted. Musculoskeletal: No cyanosis. Patient is able to move all extremities. Strength is 5 out of 5 in the upper and lower extremities. Skin: No rashes, warm dry and intact. Neurologic: Difficult to assess given the patient's sedation status. He does arouse easily and moves his upper extremities. He does purposefully try to reach for lines and tubes. Psychiatric: Unable to assess as the patient is currently intubated and sedated. Results & Data Results & Data Vital Signs (Past 12 Hours) Vital Signs Temp Pulse Pulse Pulse Resp BP BP 12/09/23 16:05 12/09/23 15:15 80 16 12/09/23 10:27 37.3 C 103 H 20 124/85 12/09/23 10:10 112 H 14 12/09/23 10:00 104 H 17 12/09/23 09:52 107 H 23 12/09/23 09:43 100 H 22 12/09/23 09:31 103 H 16 12/09/23 09:21 74 19 12/09/23 09:10 101 H 16 12/09/23 09:00 103 H 14 12/09/23 08:51 103 H 12 12/09/23 08:40 102 H 14 12/09/23 08:32 103 H 18 12/09/23 08:20 106 H 14 12/09/23 08:20 107 H 12/09/23 08:10 105 H 19 12/09/23 08:00 104 H 13 12/09/23 07:50 105 H 18 12/09/23 07:48 37.0 C 104 H 20 116/77 12/09/23 07:40 104 H 14 12/09/23 07:30 106 H 17 12/09/23 07:23 110 H 21 12/09/23 07:10 107 H 21 12/09/23 07:00 106 H 13 12/09/23 06:51 107 H 13 12/09/23 06:40 108 H 18 12/09/23 06:30 37.8 C H Pulse Ox O2 Del Method O2 Flow Rate FiO2 12/09/23 16:05 Nasal Cannula 6 12/09/23 15:15 94 75 12/09/23 10:27 97 Room Air, Nasal Cannula 6 12/09/23 10:10 12/09/23 10:00 12/09/23 09:52 12/09/23 09:43 12/09/23 09:31 12/09/23 09:21 12/09/23 09:10 12/09/23 09:00 12/09/23 08:51 12/09/23 08:40 12/09/23 08:32 12/09/23 08:20 12/09/23 08:20 12/09/23 08:10 12/09/23 08:00 12/09/23 07:50 12/09/23 07:48 94 Nasal Cannula 6 12/09/23 07:40 12/09/23 07:30 12/09/23 07:23 12/09/23 07:10 12/09/23 07:00 12/09/23 06:51 12/09/23 06:40 12/09/23 06:30 Coding Level of Care Code 97884 CRITICAL CARE 1ST 30-74M Diagnoses Acute on chronic respiratory failure with hypoxia J96.21 Respiratory failure complication: hypoxia Endotracheally intubated Z97.8 RVF (right ventricular failure) I50.810 Bacteremia due to Staphylococcus R78.81; B95.8 PAD (peripheral artery disease) I73.9 Septic shock A41.9; R65.21 Ischemic foot I99.8 Time Spent (min) 59 (1) Acute and chronic respiratory failure Respiratory failure complication: hypoxia Qualified Code(s): J96.21 - Acute and chronic respiratory failure with hypoxia
--- NOTE | 2023-12-09 17:30 | XRay Report ---
SINGLE VIEW CHEST CLINICAL HISTORY: Central venous catheter placement. FINDINGS: 2 AP, portable, upright chest radiographs are compared to study dated 12/09/2023 and correlat ed with chest CT dated 01/12/2023. The examination is degraded by portable technique and patient rotati on. Endotracheal and enteric tubes are unchanged in position. A right internal jugular central venou s catheter has been placed. The tip of the catheter projects over the right atrium. The heart is enla rged noting atherosclerotic calcification of the thoracic aorta. There is pulmonary vascular congesti on with evidence of interstitial edema. There are small pleural effusions. No pneumothorax is seen. T he skeletal structures are osteopenic. The bony thorax is grossly intact. IMPRESSION: 1. A right internal jugular central venous catheter has been placed as above. No pneumothorax is iden tified post procedure. 2. The remaining lines and tubes are unchanged. 3. Cardiomegaly with evidence of congestive failure and pulmonary edema. This is similar to today's [facility] examination. 4. Small pleural effusions. ACT 112: Negative or not required by law. Electronically signed by: Herson Lopez M.D. 12/09/2023 5:27 PM
[2023-12-09 17:51] LABS: iSTAT Allen Test Pass; iSTAT Art Bld Gas pCO2 Correct 59 mmHg (35-46); iSTAT Art Bld Gas pH Corrected 7.297 (7.35-7.45); iSTAT Arterial Blood Gas HCO3 29 meg/L (19-24); iSTAT Arterial Blood Gas pCO2 61 mmHg (35-46); iSTAT Arterial Blood Gas pH 7.29 (7.35-7.45); iSTAT Arterial Blood Gas pO2 134 mmHg (80-95); iSTAT Arterial Blood Gas pO2 C 129; iSTAT Carbon Dioxide 31 mmol/L (24-31); iSTAT FiO2 100 %; iSTAT Hematocrit 31 % (42-52); iSTAT Hemoglobin 10.5 g/dl (14.0-18.0); iSTAT Potassium 3.9 mmol/L (3.3-5.0); iSTAT Site R Radial; iSTAT Sodium 132 mmol/L (135-144)
--- NOTE | 2023-12-09 19:37 | Infectious Disease Consult ---
Date of Consultation December 09, 2023 Assessment & Plan (1) Septic shock: (2) Endotracheally intubated: (3) Bacteremia due to Staphylococcus: (4) Pressure ulcer of right foot, unstageable: Plan #Septic shock #Resp failure intubated 12/08 #Severe PVD 68 yo M with h/o PVD, CKD, COPD, DM, s/p right 5th toe amputation who was admitted on 12/06 with poor blood flow to right foot. Found to have concurrent cellulitis and bacteremia which ID consulted. Per patient and EMR, he was seen at wound care clinic d/t poor foot flow to right. Patient has a h/o PVD and underwent stenting previously. He has had I+D of Right foot in past and 5th digit amputation. He developed 2 ulcers in his le g. He underwent angioplasty w/ stenting of right popliteal artery and percutaneous transluminal angioplasty of proximal right superficial femoral artery on 10/27/23. His foot appeared to be healing but recently redness and pains started. Was not on antibiotics prior to admission. On admission 12/06, WBC 19, Cr 1.5 CTA proximal to mid right popliteal artery is occluded which includes the p opliteal artery stent, high-grade stenosis within the distal popliteal artery, severe stenosis within a short segment of the mid posterior tibial artery. Imaging also noted Focal irregularity of the skin surface within the dorsum of the midfoot which may represent a skin ulceration or small laceration. There is a small amount of subcutaneous gas tracking superiorly along the anterior aspect of the mid to distal right lower leg. This is likely related to the skin ulceration/injury at the midfoot. A gas-forming organism is not excluded. No loculated fluid collections to suggest an abscess. Patient on daptomycin, clindamycin and zosyn when I saw him this am. He was doing well. Patient went to OR this afternoon for Right lower extremity diagnostic angiogra m, RLE open thrombectomy of SFA and popliteal artery Attempted revascularization of the right lower extremity which was unsuccessful. Post op he was extubated but immediatiately intubated again, patient hypotensive, TF to ICU on pressors. Suspicious of cardiac v pulm event at this time Discussion: -Keep with IV Zosyn -C/W IV Clindamycin -Would dc Daptomycin and change to Vancomycin to cover pulmonary pathogens as well -Repeat blood cultures -Await staph speciation, BCID results not available ID following Please page OTW to [facility] Dr. Mclaughlin to start service on Tuesday Jessica Heredia MD Infectious Diseases [facility], [facility] Consultation Information Consultation was provided via telemedicine using two-way real-time interactive telecommunication between the patient and the telemedicine provider. For the duration of the visit, the provider was performing the assessment from a different facility than the patient. This includesuse of bluetooth stethoscope forauscultationperformed by the telepresenter that the telemedicine provider can hear if described in the physical exam. Hostel Manager contact information: Please call [facility] . (Phone Number For Physician Use Only) After establishing a telemedicine visit, patient was: Patient was verified with two unique identifiers, Patient/authorized rep acknowledged consent and understanding and Gave permission to continue telehealth session Time Spent with Patient: Initial => 55 min History of Present Illness Reason for Consultation: Cellulitis, Bacteremia Requesting Physician: Dr. Banks Attending Physician: Delia Banks MD History of Present Illness 68 yo M with h/o PVD, CKD, COPD, DM, s/p right 5th toe amputation who was admitted on 12/06 with poor blood flow to right foot. Found to have concurrent cellulitis and bacteremia which ID consulted. Per patient and EMR, he was seen at wound care clinic d/t poor foot flow to right. Patient has a h/o PVD and underwent stenting previously. He has had I+D of Right foot in past and 5th digit amputation. He developed 2 ulcers in his leg. He underwent angioplasty w/ stenting of right popliteal artery and percutaneous transluminal angioplasty of proximal right superficial femoral artery on 10/27/23. His foot appeared to be healing but recently redness and pains started. Was not on antibiotics prior to admission. On admission 12/06, WBC 19, Cr 1.5 CTA proximal to mid right popliteal artery is occluded which includes the popliteal artery stent, high-grade stenosis within the distal popliteal artery, severe stenosis within a short segment of the mid posterior tibial artery. Imaging also noted Focal irregularity of the skin surface within the dorsum of the midfoot which may represent a skin ulceration or small laceration. There is a small amount of subcutaneous gas tracking superiorly along the anterior aspect of the mid to distal right lower leg. This is likely related to the skin ulceration/injury at the midfoot. A gas-forming organism is not excluded. No loculated fluid collections to suggest an abscess. Patient on daptomycin, clindamycin and zosyn when I saw him this am. He was doing well. Patient went to OR this afternoon for Right lower extremity diagnostic angiogram, RLE open thrombectomy of SFA and popliteal artery Attempted revascularization of the right lower extremity which was unsuccessful. Post op he was extubated but immediatiately intubated again, patient hypotensive, TF to ICU on pressors. Allergies Allergy/AdvReac Type Severity Reaction Status Date / Time empagliflozin Allergy Intermediate Nausea, Verified 10/27/23 10:36 [From [facility]] Dizziness Home Medications Medication Instructions Recorded Confirmed Type aspirin 81 mg tablet,delayed 81 mg PO QAM 04/02/21 10/27/23 History release furosemide 40 mg tablet 40 mg PO QAM 04/02/21 10/27/23 History glyburide 5 mg tablet 5 mg PO BID 04/02/21 10/27/23 History insulin aspart U-100 100 unit/mL 6 unit subcut AC 04/02/21 10/27/23 History (3 mL) subcutaneous pen (Novolog FlexPen U-100 Insulin aspart) insulin detemir U-100 100 unit/mL 80 unit subcut BID 04/02/21 10/27/23 History (3 mL) subcutaneous pen (Levemir FlexTouch U-100 Insulin) lisinopril 30 mg tablet 30 mg PO QAM 04/02/21 10/27/23 History metformin 1,000 mg tablet 1,000 mg PO BID 04/02/21 10/27/23 History metoprolol succinate 50 mg 50 mg PO QAM 04/02/21 10/27/23 History tablet,extended release 24 hr nitroglycerin 0.4 mg sublingual 0.4 mg buccal DIRECTED PRN 04/02/21 10/27/23 History tablet Chest Pain rosuvastatin 10 mg tablet (Crestor) 10 mg PO DAILY 04/02/21 10/27/23 History cefprozil 250 mg tablet 0 mg TID 01/12/23 10/27/23 History clopidogrel 75 mg tablet 75 mg PO DAILY 01/12/23 10/27/23 History cyclobenzaprine 5 mg tablet 5 mg PO TID 01/12/23 10/27/23 History metronidazole 500 mg tablet 500 mg PO TID 01/12/23 10/27/23 History nortriptyline 25 mg capsule 0 mg PO DAILY 01/12/23 10/27/23 History pantoprazole 40 mg tablet,delayed 40 mg PO DAILY 01/12/23 10/27/23 History release (Protonix) Patient History Medical History Septic shock Endotracheally intubated RVF (right ventricular failure) COPD (chronic obstructive pulmonary disease) Chronic respiratory failure CKD (chronic kidney disease) stage 2, GFR 60-89 ml/min Coronary artery disease Pulmonary hypertension CHF (congestive heart failure) BETTE (obstructive sleep apnea) Type 2 diabetes mellitus Hyperlipidemia Hypertension Family History Other Family history non-contributory Social History Smoking Status: Former smoker Tobacco Type: Cigarettes Cigarettes Per Day: na; Smoking End Date: 15-20 years ago; Second Hand Exposure: Yes (son); Do You Dip or Chew Tobacco: No; Hx Alcohol Use: Yes (rarely) Hx Substance Use: No Preferred Language: Vietnamese Communication Ability: Effective Neurosurgical Nurse Practitioner Required: No Beliefs That Will Affect Care: None Current Living Situation: Family Current Living Situation Comment: with son and daughter inlaw How many Children do You have: 5 Other Information That Helps Us Care for You: No Feels Safe at Home: Yes Safety Concerns: Feels Safe At This Time Assistive Devices: Cane and Oxygen - Continuous Physical Exam Physical Exam: EXAM PRIOR TO OR NAD, 6L NC no crepitus, erythema regressed on leg Results & Data Vital Signs (Past 12 Hours) Vital Signs Temp Pulse Pulse Pulse Resp BP BP 12/09/23 18:56 86/54 L 12/09/23 18:31 91/58 L 12/09/23 18:16 79 12/09/23 18:08 36.2 C L 78 141/84 H 12/09/23 18:00 36.3 C L 79 19 12/09/23 17:40 20 12/09/23 17:00 36.5 C 84 16 12/09/23 16:50 85 16 12/09/23 16:40 118/70 12/09/23 16:40 87 16 12/09/23 16:35 36.6 C 87 16 12/09/23 16:35 118/69 12/09/23 16:30 36.6 C 87 16 12/09/23 16:30 119/71 12/09/23 16:30 36.6 C 87 16 12/09/23 16:25 119/69 12/09/23 16:23 36.6 C 87 16 12/09/23 16:20 108/62 12/09/23 16:20 36.6 C 87 16 12/09/23 16:12 82 18 12/09/23 16:11 86/55 L 12/09/23 16:09 82 16 12/09/23 16:05 12/09/23 16:00 109/65 12/09/23 16:00 81 16 12/09/23 16:00 81 16 12/09/23 15:50 82 16 12/09/23 15:40 82 16 12/09/23 15:33 81 16 12/09/23 15:30 128/76 12/09/23 15:30 81 16 12/09/23 15:15 36.7 C 79 15 102/73 12/09/23 15:15 80 16 12/09/23 10:27 37.3 C 103 H 20 124/85 12/09/23 10:19 107 H 12/09/23 10:10 112 H 14 12/09/23 10:00 104 H 17 12/09/23 09:52 107 H 23 12/09/23 09:43 100 H 22 12/09/23 09:31 103 H 16 12/09/23 09:21 74 19 12/09/23 09:10 101 H 16 12/09/23 09:00 103 H 14 12/09/23 08:51 103 H 12 12/09/23 08:40 102 H 14 12/09/23 08:32 103 H 18 12/09/23 08:20 106 H 14 12/09/23 08:20 107 H 12/09/23 08:10 105 H 19 12/09/23 08:00 104 H 13 12/09/23 07:50 105 H 18 12/09/23 07:48 37.0 C 104 H 20 12/09/23 07:40 104 H 14 BP Pulse Ox O2 Del Method O2 Flow Rate FiO2 12/09/23 18:56 12/09/23 18:31 12/09/23 18:16 12/09/23 18:08 96 Mechanical Vent 65 12/09/23 18:00 133/91 96 Mechanical Vent 12/09/23 17:40 65 12/09/23 17:00 112/66 94 Mechanical Vent 12/09/23 16:50 99 12/09/23 16:40 12/09/23 16:40 99 12/09/23 16:35 99 12/09/23 16:35 12/09/23 16:30 99 12/09/23 16:30 12/09/23 16:30 119/71 95 Mechanical Vent 12/09/23 16:25 12/09/23 16:23 99 12/09/23 16:20 12/09/23 16:20 98 12/09/23 16:12 86 L 12/09/23 16:11 12/09/23 16:09 91 12/09/23 16:05 Nasal Cannula 6 12/09/23 16:00 12/09/23 16:00 96 12/09/23 16:00 109/65 95 Mechanical Vent 12/09/23 15:50 95 12/09/23 15:40 94 12/09/23 15:33 91 12/09/23 15:30 12/09/23 15:30 128/76 93 Mechanical Vent 65 12/09/23 15:15 94 Mechanical Vent 12/09/23 15:15 94 75 12/09/23 10:27 97 Room Air, Nasal Cannula 6 12/09/23 10:19 12/09/23 10:10 12/09/23 10:00 12/09/23 09:52 12/09/23 09:43 12/09/23 09:31 12/09/23 09:21 12/09/23 09:10 12/09/23 09:00 12/09/23 08:51 12/09/23 08:40 12/09/23 08:32 12/09/23 08:20 12/09/23 08:20 12/09/23 08:10 12/09/23 08:00 12/09/23 07:50 12/09/23 07:48 116/77 94 Nasal Cannula 6 12/09/23 07:40 Laboratory Results Laboratory Results - last 48 hr 12/07/23 12/07/23 12/07/23 16:53 20:49 22:50 WBC RBC Hgb POC Hgb Hct POC Hct MCV MCH MCHC RDW Std Deviation RDW Coeff of Larry Plt Count MPV Immature Gran % (Auto) Neut % (Auto) Lymph % (Auto) Crawford % (Auto) Eos % (Auto) Baso % (Auto) Neut # (Auto) Lymph # (Auto) Crawford # (Auto) Eos # (Auto) Baso # (Auto) Immature Gran # (Auto) Heparin Anti-Xa, Unfract 0.10 L Sample Site POC pH POC pCO2 POC pO2 POC HCO3 POC Total CO2 POC Base Excess ABG pH (Temp Correct) ABG pCO2 (Temp Corrct POC ABG pO2 at Pt Temp POC ABG O2 Sat Franck Test O2 Delivery Device POC O2 Rate POC FiO2 Tidal Volume PEEP POC Sodium Sodium POC Potassium Potassium Chloride Carbon Dioxide Anion Gap BUN Creatinine Est Cr Clr Drug Dosing Est GFR ( Amer) Est GFR (Non-Af Amer) BUN/Creatinine Ratio Glucose POC Glucose 218 H Estimat Average Glucose Hemoglobin A1c Lactate Calcium Total Bilirubin AST ALT Alkaline Phosphatase Troponin I High Sens B-Natriuretic Peptide Total Protein Albumin Globulin Albumin/Globulin Ratio Staphylococcus sp PCR DETECTED A Bld Cult ID Panel PCR See PCR Comment Blood Type Antibody Screen Crossmatch 12/08/23 12/08/23 12/08/23 05:55 05:56 12:00 WBC 17.25 H RBC 4.01 L Hgb 10.7 L POC Hgb Hct 34.7 L POC Hct MCV 86.5 MCH 26.7 MCHC 30.8 L RDW Std Deviation 48.3 H RDW Coeff of Larry 15.3 H Plt Count 340 MPV 10.2 Immature Gran % (Auto) 0.6 Neut % (Auto) 77.7 Lymph % (Auto) 10.8 Crawford % (Auto) 8.9 Eos % (Auto) 1.7 Baso % (Auto) 0.3 Neut # (Auto) 13.39 H Lymph # (Auto) 1.86 Crawford # (Auto) 1.54 H Eos # (Auto) 0.30 Baso # (Auto) 0.06 Immature Gran # (Auto) 0.10 Heparin Anti-Xa, Unfract < 0.10 L Sample Site POC pH POC pCO2 POC pO2 POC HCO3 POC Total CO2 POC Base Excess ABG pH (Temp Correct) ABG pCO2 (Temp Corrct POC ABG pO2 at Pt Temp POC ABG O2 Sat Franck Test O2 Delivery Device POC O2 Rate POC FiO2 Tidal Volume PEEP POC Sodium Sodium 131 L POC Potassium Potassium 4.5 Chloride 96 L Carbon Dioxide 30 Anion Gap 5 BUN 22 Creatinine 1.10 Est Cr Clr Drug Dosing 76.8 Est GFR ( Amer) 79.5 Est GFR (Non-Af Amer) 68.6 BUN/Creatinine Ratio 20.0 Glucose 213 H POC Glucose 221 H 161 H Estimat Average Glucose 186 Hemoglobin A1c 8.1 H Lactate Calcium 8.5 L Total Bilirubin AST ALT Alkaline Phosphatase Troponin I High Sens B-Natriuretic Peptide Total Protein Albumin Globulin Albumin/Globulin Ratio Staphylococcus sp PCR Bld Cult ID Panel PCR Blood Type Antibody Screen Crossmatch 12/08/23 12/08/23 12/08/23 14:14 18:11 20:23 WBC RBC Hgb POC Hgb Hct POC Hct MCV MCH MCHC RDW Std Deviation RDW Coeff of Larry Plt Count MPV Immature Gran % (Auto) Neut % (Auto) Lymph % (Auto) Crawford % (Auto) Eos % (Auto) Baso % (Auto) Neut # (Auto) Lymph # (Auto) Crawford # (Auto) Eos # (Auto) Baso # (Auto) Immature Gran # (Auto) Heparin Anti-Xa, Unfract 0.20 L 0.13 L Sample Site POC pH POC pCO2 POC pO2 POC HCO3 POC Total CO2 POC Base Excess ABG pH (Temp Correct) ABG pCO2 (Temp Corrct POC ABG pO2 at Pt Temp POC ABG O2 Sat Franck Test O2 Delivery Device POC O2 Rate POC FiO2 Tidal Volume PEEP POC Sodium Sodium POC Potassium Potassium Chloride Carbon Dioxide Anion Gap BUN Creatinine Est Cr Clr Drug Dosing Est GFR ( Amer) Est GFR (Non-Af Amer) BUN/Creatinine Ratio Glucose POC Glucose 162 H Estimat Average Glucose Hemoglobin A1c Lactate Calcium Total Bilirubin AST ALT Alkaline Phosphatase Troponin I High Sens B-Natriuretic Peptide Total Protein Albumin Globulin Albumin/Globulin Ratio Staphylococcus sp PCR Bld Cult ID Panel PCR Blood Type O Positive Antibody Screen NEGATIVE Crossmatch See Detail 05/02/24 05/03/24 05/03/24 20:39 03:38 06:41 WBC RBC Hgb POC Hgb Hct POC Hct MCV MCH MCHC RDW Std Deviation RDW Coeff of Larry Plt Count MPV Immature Gran % (Auto) Neut % (Auto) Lymph % (Auto) Crawford % (Auto) Eos % (Auto) Baso % (Auto) Neut # (Auto) Lymph # (Auto) Crawford # (Auto) Eos # (Auto) Baso # (Auto) Immature Gran # (Auto) Heparin Anti-Xa, Unfract 0.20 L Sample Site POC pH POC pCO2 POC pO2 POC HCO3 POC Total CO2 POC Base Excess ABG pH (Temp Correct) ABG pCO2 (Temp Corrct POC ABG pO2 at Pt Temp POC ABG O2 Sat Franck Test O2 Delivery Device POC O2 Rate POC FiO2 Tidal Volume PEEP POC Sodium Sodium POC Potassium Potassium Chloride Carbon Dioxide Anion Gap BUN Creatinine Est Cr Clr Drug Dosing Est GFR ( Amer) Est GFR (Non-Af Amer) BUN/Creatinine Ratio Glucose POC Glucose 153 H 159 H Estimat Average Glucose Hemoglobin A1c Lactate Calcium Total Bilirubin AST ALT Alkaline Phosphatase Troponin I High Sens B-Natriuretic Peptide Total Protein Albumin Globulin Albumin/Globulin Ratio Staphylococcus sp PCR Bld Cult ID Panel PCR Blood Type Antibody Screen Crossmatch 12/09/23 12/09/23 12/09/23 09:55 10:34 15:55 WBC 21.22 H RBC 3.69 L Hgb 9.6 L POC Hgb Hct 32.1 L POC Hct MCV 87.0 MCH 26.0 MCHC 29.9 L RDW Std Deviation 49.2 H RDW Coeff of Larry 15.4 H Plt Count 380 MPV 10.4 Immature Gran % (Auto) 0.8 Neut % (Auto) 81.0 Lymph % (Auto) 8.9 Crawford % (Auto) 7.7 Eos % (Auto) 1.2 Baso % (Auto) 0.4 Neut # (Auto) 17.19 H Lymph # (Auto) 1.89 Crawford # (Auto) 1.63 H Eos # (Auto) 0.25 Baso # (Auto) 0.08 Immature Gran # (Auto) 0.18 Heparin Anti-Xa, Unfract 0.13 L Sample Site POC pH POC pCO2 POC pO2 POC HCO3 POC Total CO2 POC Base Excess ABG pH (Temp Correct) ABG pCO2 (Temp Corrct POC ABG pO2 at Pt Temp POC ABG O2 Sat Franck Test O2 Delivery Device POC O2 Rate POC FiO2 Tidal Volume PEEP POC Sodium Sodium 133 L POC Potassium Potassium 4.1 Chloride 96 L Carbon Dioxide 29 Anion Gap 8 BUN 22 Creatinine 0.92 Est Cr Clr Drug Dosing 91.1 Est GFR ( Amer) 98.7 Est GFR (Non-Af Amer) 85.2 BUN/Creatinine Ratio 23.9 H Glucose 189 H POC Glucose 145 H Estimat Average Glucose Hemoglobin A1c Lactate 1.1 Calcium 8.3 L Total Bilirubin 0.5 AST 13 ALT 10 Alkaline Phosphatase 94 Troponin I High Sens 119.0 H* B-Natriuretic Peptide 75 Total Protein 6.2 Albumin 3.3 L Globulin 2.9 Albumin/Globulin Ratio 1.1 Staphylococcus sp PCR Bld Cult ID Panel PCR Blood Type Antibody Screen Crossmatch 12/09/23 12/09/23 16:05 17:32 WBC RBC Hgb POC Hgb 10.5 L Hct POC Hct 31 L MCV MCH MCHC RDW Std Deviation RDW Coeff of Larry Plt Count MPV Immature Gran % (Auto) Neut % (Auto) Lymph % (Auto) Crawford % (Auto) Eos % (Auto) Baso % (Auto) Neut # (Auto) Lymph # (Auto) Crawford # (Auto) Eos # (Auto) Baso # (Auto) Immature Gran # (Auto) Heparin Anti-Xa, Unfract Sample Site R Radial POC pH 7.29 L POC pCO2 61 H POC pO2 134 H POC HCO3 29 H POC Total CO2 31 POC Base Excess 3.0 H ABG pH (Temp Correct) 7.297 L ABG pCO2 (Temp Corrct 59 H POC ABG pO2 at Pt Temp 129 POC ABG O2 Sat 99.0 H Franck Test Pass O2 Delivery Device Ventilator POC O2 Rate 16 POC FiO2 100 Tidal Volume 450 PEEP 8 POC Sodium 132 L Sodium POC Potassium 3.9 Potassium Chloride Carbon Dioxide Anion Gap BUN Creatinine Est Cr Clr Drug Dosing Est GFR ( Amer) Est GFR (Non-Af Amer) BUN/Creatinine Ratio Glucose POC Glucose 174 H Estimat Average Glucose Hemoglobin A1c Lactate Calcium Total Bilirubin AST ALT Alkaline Phosphatase Troponin I High Sens B-Natriuretic Peptide Total Protein Albumin Globulin Albumin/Globulin Ratio Staphylococcus sp PCR Bld Cult ID Panel PCR Blood Type Antibody Screen Crossmatch Microbiology 12/07/23 16:53 Blood Aerobic Blood Culture - Preliminary No growth in Aerobic bottle after 48 hours. 05/01/24 16:53 Blood Anaerobic Blood Culture - Preliminary Staphylococcus species 12/07/23 16:50 Blood Aerobic Blood Culture - Preliminary No growth in Aerobic bottle after 48 hours. 12/07/23 16:50 Blood Anaerobic Blood Culture - Preliminary Gram positive cocci clusters
[2023-12-09] MEDS: propofoL 1,000 MG/100 ML VIAL IV SCH (19:40)
[2023-12-09] MEDS: DAPTOmycin 500 MG in SYRINGE 0 ML IV SCH (22:39)
[2023-12-10] MEDS: INSULIN ASPART PER UNIT CHARGE SC SCH ×2 (00:35→20:43)
--- OUTSIDE RECORDS SUMMARY | 2023-12-10 00:57 | External Medical Summary | Continuity of Care Document ---
Author Name Unknown Organization [facility] Address [address] [place], [place] [id number] Care Team Providers Care Cake Puncher Name Role Phone Kayla Fernando Primary Care Physician [phone] [phone]s): 11/10/23 - 11/10/23 [facility] [address], [address] [place] [address] [phone] Encounter Diagnosis Type 2 diabetes mellitus with diabetic peripheral angiopathy and gangrene, with long-term current use of insulin(Discharge Diagnosis) - 11/10/23 Peripheral arterial disease with history of revascularization(Discharge Diagnosis) - 11/10/23 Atherosclerosis of [place] arteries of extremities with intermittent claudication, bilateral legs(Discharge Diagnosis) - 11/10/23 Chronic respiratory failure with hypoxia, on home oxygen therapy(Discharge Diagnosis) - 11/10/23 Benign hypertension with coincident congestive heart failure(Discharge Diagnosis) - 11/10/23 Chronic diastolic (congestive) heart failure(Discharge Diagnosis) - 11/10/23 Type 2 diabetes mellitus with diabetic peripheral angiopathy with gangrene (Final) - Peripheral vascular disease, unspecified(Final) - Atherosclerosis of [place] arteries of extremities with intermittent claudication, bilateral legs(Final) - Chronic respiratory failure with hypoxia(Final) - Hypertensive heart disease with heart failure(Final) - Discharge Disposition: Home or Self Care Attending Physician: LORENA Fernando Jessica A Referring Physician: LORENA Fernando Jessica A Allergies, Adverse Reactions, Alerts Substance Reaction Severity Status Jardiance dizziness, nausea Active Medications aspirin 81 mg oral tablet, chewable Start: 06/24/20 13:08:00 EST, 1 tab, PO, Daily, Disp# 90 tab, Refills: 3, Pharmacy: [facility]/pharmacy #[id number] Start Date: 06/24/20 Status: Ordered BD needle Ultra-Fine Pen 29G x 0.5" Start: 11/02/22 13:45:00 EDT, See Instructions, Disp# 100 each, Refills: 5, Use as directed with insulin. Max ____/day. Use new pen needle with each injection., Pharmacy: [facility]/pharmacy #[id number] Start Date: 11/02/22 Status: Ordered BD needle Ultra-Fine Pen Etta 32G x 4mm Start: 12/11/21 9:41:00 EDT, See Instructions, Disp# 100 each, Refills: 3, To be used with insulin injections twice daily., Note to Pharmacy: ICD-10: E11.42, [id number] Start Date: 12/11/21 Status: Ordered cilostazol 100 mg oral tablet Start: 05/09/23 9:59:00 EDT, 1 tab, PO, bid, Disp# 180 tab, Refills: 3, Pharmacy: [id number] Start Date: 05/09/23 Status: Ordered clopidogrel 75 mg oral tablet Start: 04/08/23 13:05:00 EDT, 1 tab, PO, Daily, Disp# 90 tab, Refills: 3, Pharmacy: [id number] Start Date: 04/08/23 Status: Ordered Farxiga 10 mg oral tablet Start: 05/10/23 9:24:00 EDT, 1 tab, PO, Daily, Disp# 30 tab, Refills: 11, Pharmacy: [id number] Start Date: 05/10/23 Status: Ordered furosemide 40 mg oral tablet Start: 05/09/23 9:59:00 EDT, 1 tab, PO, Daily, Disp# 90 tab, Refills: 3, IF WEIGHT INCREASES OVERNIGHT 2-3 POUNDS OR 4-5 POUNDS PER WEEK, TAKE 1 EXTRA TABLET, Pharmacy: [id number] Start Date: 05/09/23 Status: Ordered glipiZIDE 5 mg oral tablet Start: 12/27/22 8:19:00 EDT, See Instructions, Disp# 60 tab, Refills: 11, Take 1 tablet by mouth twice daily, Pharmacy: [id number] Start Date: 12/27/22 Status: Ordered Levemir FlexPen 100 units/mL subcutaneous solution Start: 05/23/23 14:38:00 EDT, 80 unit =, subQ, bid, Disp# 270 mL, Refills: 3, Pharmacy: [facility]7 Start Date: 05/23/23 Status: Ordered lisinopril 30 mg oral tablet Start: 08/02/23 20:56:00 EST, 1 tab, PO, Daily, Disp# 90 tab, Refills: 1, Pharmacy: [facility] 160 Start Date: 08/02/23 Status: Ordered metFORMIN 1000 mg oral tablet Start: 08/02/23 20:56:00 EST, 1 tab, PO, bid, Disp# 180 tab, Refills: 1, Pharmacy: [place] [id number] Start Date: 08/02/23 Status: Ordered Metoprolol Succinate ER 50 mg oral tablet, extended release Start: 08/02/23 20:56:00 EST, 1 tab, PO, Daily, Disp# 90 tab, Refills: 1, Pharmacy: [facility] 160 Start Date: 08/02/23 Status: Ordered metroNIDAZOLE 500 mg oral tablet TAKE 1 TABLET BY MOUTH IN THE MORNING, THEN 1 TABLET AT NOON AND 1 TABLET AT BEDTIME Start Date: 12/22/22 Status: Ordered nitroglycerin 0.4 mg sublingual tablet Start: 06/24/20 13:08:00 EST, 1 tab, SL, q5min, Disp# 25 tab, Refills: 3, PRN: Chest Pain, [id number] Start Date: 06/24/20 Status: Ordered nortriptyline 25 mg oral capsule Start: 05/13/23 7:54:00 EDT, 1 cap, PO, qhs, Disp# 30 cap, Refills: 5, Pharmacy: [id number] Start Date: 05/13/23 Stop Date: 06/12/23 Status: Ordered One Touch Delica (33G) Lancets Start: 08/07/18 9:27:22 EST, See Instructions, Disp# 300 unit, Refills: 3, Test blood sugar before meals and at bedtime, Pharmacy: [facility]/pharmacy #[id number] Start Date: 08/07/18 Status: Ordered One Touch Delica Plus (30G) Lancets Start: 12/11/21 9:41:00 EDT, See Instructions, Disp# 300 each, Refills: 3, Use to test blood sugar TID. Dx Code E11.42, Pharmacy: [facility]/pharmacy #[id number] Start Date: 12/11/21 Status: Ordered One Touch Verio Glucose Monitor Start: 10/05/17 11:22:00, See Instructions, Disp# 1 each, Test blood sugar before meals and at bedtime, Pharm[facility]: [facility] Start Date: 10/05/17 Status: Ordered One Touch Verio Test Strips Start: 12/11/21 9:41:00 EDT, See Instructions, Disp# 300 each, Refills: 3, Use to test blood sugar three times daily, Note to Pharmacy: ICD-10: E11.42, Pharmacy: [facility]/pharmacy #[id number] Start Date: 12/11/21 Status: Ordered pantoprazole 40 mg oral delayed release tablet Start: 12/22/22 15:04:00 EDT, 1 tab, PO, Daily Start Date: 12/22/22 Status: Ordered rosuvastatin 10 mg oral tablet Start: 05/09/23 9:59:00 EDT, 1 tab, PO, Daily, Disp# 90 tab, Refills: 3, Pharmacy: [id number] Start Date: 05/09/23 Status: Ordered sodium hypochlorite 0.125% topical solution Start: 03/03/23 14:10:00 EDT, See Instructions, Disp# 473 mL, Refills: 2, apply to affected area daily, Pharmacy: [facility] Start Date: 03/03/23 Status: Ordered tamsulosin 0.4 mg oral capsule Start: 12/22/22 15:03:00 EDT, 1 cap, PO, Daily Start Date: 12/22/22 Status: Ordered traMADol 50 mg oral tablet Start: 11/10/23 11:52:00 EDT, 1 tab, PO, q6h, Disp# 12 tab, X 3 day, Stop: 11/13/23 11:52:00 EDT, Pharmacy: [id number] Start Date: 11/10/23 Stop Date: 11/13/23 Status: Ordered Mental Status 11/10/23 Barriers to Learning one year None evide nt Mandatory Health Literacy Documentation Yes Health Literacy Communication Barriers N ever Primary Language Far[place] Problem List Condition Confirmation Course Effective Dates Status Health Status Informant Amputation of toe of right foot Confirmed Active Benign hypertension with coincident congestive heart failure Confirmed Active Chronic diastolic (congestive) heart failure Confirmed Active Chronic respiratory failure with hypoxia, on home oxygen therapy Confirmed Active Nonocclusive coronary atherosclerosis of [place] coronary artery Confirmed Active Diabetic peripheral neuropathy associated with type 2 diabetes mellitus Confirmed Active Hyperlipidemia Confirmed Active Atherosclerosis of [place] arteries of extremities with intermittent claudication, bilateral legs Confirmed Active BETTE (obstructive sleep apnea) Confirmed Active Peripheral arterial disease with history of revascularization Confirmed Active Tobacco user Confirmed Active Type 2 diabetes mellitus with diabetic peripheral angiopathy and gangrene, with long-term current use of insulin Confirmed Active Diagnosis Diagnosis Type Effective Dates Health Status Clinical Service Informant Atherosclerosis of [place] arteries of extremities with intermittent claudication, bilateral legs Discharge Diagnosis 11/10/23 Non-Specified Chronic diastolic (congestive) heart failure Discharge Diagnosis 11/10/23 Non-Specified Chronic respiratory failure with hypoxia, on home oxygen therapy Discharge Diagnosis 11/10/23 Non-Specified Type 2 diabetes mellitus with diabetic peripheral angiopathy and gangrene, with long-term current use of insulin Discharge Diagnosis 11/10/23 Non-Specified Peripheral arterial disease with history of revascularization Discharge Diagnosis 11/10/23 Non-Specified Benign hypertension with coincident congestive heart failure Discharge Diagnosis 11/10/23 Non-Specified Procedures Procedure Date Related Diagnosis Body Site Status Insertion of popliteal artery stent 1 10/27/23 Completed Chest x-ray 2 01/12/[address] angiography of chest with contrast 3 01/12/[address] of abdomen and pelvis 4 01/12/23 Completed Amputation of toe and metatarsal 5 12/06/22 Completed MRI of right foot 6 11/23/22 Compl eted X-ray of right foot 7 11/05/22 Com pleted Cardiac catheterization 10/03/17 C ompleted [address] [place] [address] Impression: 1. Cardiomegaly without radiographic evidence of congestive failure 2. Right basiar opacities are similar to previous and likely represent scarring/atelectasis. Correlate clinically for evidence of a superimposed pneumonitis [address] [place] [address] Impression: 1. No pulmonary emboli identified 2. Subsegmental bilateral atelectasis 3. No lymphadenopathy [facility] Impression: 1. No acute abnormality. incidental note is made of diverticulosis without diverticulitis [facility] Right 5th toe [facility] Impression: 1. No evidence of osteomyelitis or abscess [facility] Impression: 1. No focal cortical erosion/osteolysis or agressive periosteal reaction identified to suggest osteomyelitis. No fracture or bone lesion. Scattered [id number] osteoarthritis. Plantar calcaneal spur. Achilles enthesophytes Results Laboratory List Name Date Comprehensive Metabolic Panel (COMP META B PANEL) 11/10/23 Hemoglobin A1C (HEMOGLOBIN, A1C) 11/10/23 Lipid Profile (LIPOPROTEINS) 11/10/23 Microalbumin, Urine, Random (MICROALBUMI N, RD UR) 11/10/23 Thyroid Stimulating Hormone (TSH) 11/10/23 Most recent to oldest [Reference Range]: 1 eGFR CKD-EPI [>60 mL/min/1.73 m2] 84 mL/ min/1.73 m2 1 (11/10/23 12:08 PM) Estimated Average Glucose 171 mg/dL (11/10/23 12:08 PM) Non-HDL 95 mg/dL 2 (11/10/23 12:08 PM) Estimated CrCl 87.63 mL/min (11/10/23 12:49 PM) Micro Alb (u) [<2.00 mg/dL] UNABLE TO VO ID mg/dL (11/10/23 12:08 PM) Anion Gap [5-14 mmol/L] 9 mmol/L (11/10/23 12:08 PM) Alb [3.5-5.0 g/dL] 4.5 g/dL (11/10/23 12:08 PM) Alk Phos [38-126 unit/L] 65 unit/L (11/10/23 12:08 PM) ALT [<50 unit/L] 16 unit/L (11/10/23 12:08 PM) AST [15-46 unit/L] 27 unit/L (11/10/23 12:08 PM) BUN [7-20 mg/dL] 22 mg/dL *HI* (11/10/23 12:08 PM) Ca [8.4-10.2 mg/dL] 9.5 mg/dL (11/10/23 12:08 PM) Chol/HDL 4 (11/10/23 12:08 PM) Chol [125-200 mg/dL] 124 mg/dL *LOW* (11/10/23 12:08 PM) Cl- [96-107 mmol/L] 99 mmol/L (11/10/23 12:08 PM) HCO3 [22-30 mmol/L] 30 mmol/L (11/10/23 12:08 PM) Cret [0.70-1.30 mg/dL] 0.98 mg/dL (11/10/23 12:08 PM) HbA1c [<5.7 %] 7.6 % 3 *HI* (11/10/2308 PM) Glu [74-106 mg/dL] 105 mg/dL (11/10/2308 PM) HDL [>35 mg/dL] 29 mg/dL *LOW* (11/10/2308 PM) K [3.5-5.1 mmol/L] 4.3 mmol/L (11/10/2308 PM) LDL Chol, Calculated [50-130 mg/dL] 24 m g/dL *LOW* (11/10/2308 PM) Micro Alb Ratio [<20 ug/mg cret] UNABLE TO VOID ug/mg cret 4 (11/10/23 12:08 PM) Na [137-145 mmol/L] 138 mmol/L (11/10/23 12:08 PM) T Bili [0.2-1.3 mg/dL] 0.4 mg/dL (11/10/23:08 PM) Prot [6.3-8.2 g/dL] 7.9 g/dL (11/10/23 12:08 PM) TG [<200 mg/dL] 355 mg/dL *HI* (11/10/23:08 PM) TSH [0.47-4.68 uIU/mL] 4.41 uIU/mL 5 (11/10/23 12:08 PM) Creat (u) UNABLE TO VOID mg/dL (11/10/23 12:08 PM) 1Result Comment: Testing Performed By: Dept of Pathology [facility] [address], [address], [place] [address] 2Result Comment: Testing Performed By: Dept of Pathology [facility] [address] Resendez, [address], [place] [address] 3Result Comment: ADA Recommended [place] Reference Range: Normal: <5.7% Prediabetes: 5.7-6.4% Diabetes: >6.4% 4Result Comment: Testing Performed By: Dept of Pathology [facility] [address]ks[address] Resendez, [facility] [place] [address] 5Result Comment: Testing Performed By: Dept of Pathology [facility] [address] Resendez, [address] [place] [address] Vital Signs Most recent to oldest [Reference Range]: 1 Patient Weight 109 kg (11/10/23 11:18 AM) Temperature [36.5-37.9 DegC] 36.5 DegC (11/10/23 11:18 AM) Heart Rate 76 bpm (11/10/23 11:18 AM) Respiratory Rate 20 br/min (11/10/23 11:18 AM) Blood Pressure 132/76mmHg (11/10/23 11:18 AM) Cuff Pulse Pressure 56 mmHg (11/10/23 11:18 AM) BP Location # 1 Left Arm, Manual (11/10/23 11:18 AM) Social History Social History Type Response Tobacco Former smoker, Cigar ettes Smoking Status Current every day he ed smoker Sex Male Patient Care team information Care Team Personnel Name: AUDREY Enrique Terra L Position: Nurse Pract - Vascular Surg Member Role: Lifetime Relationship Address: Address: [address] [place] [address] [place] Name: Prasanna Wilson Catherine Position: Pharmacist Member Role: Pharmacy - Lifetime Address: Address: [facility] [address] [place] [address] [place] Name: LORENA Gaston Bridget M Position: Physician Technical Services Assistant - Vascular Surg Member Role: Lifetime Relationship Address: Address: [address] [place] [address] [place] Name: LORENA Horan Lynn Position: Physician Technical Services Assistant Exempt - Vasc Surg Member Role: Lifetime Relationship Address: Address: [address] [place] [address], [place] [address] [place] Name: LORENA Fernando Jessica A Position: Physician Asst Exmpt - Family Med Member Role: Primary Care Provider Address: Address: [address] [place] [id number] Care Team Related Persons Name: KAYLA SAEED Address: home [address] [facility] [address] Name: LILLIAM SAEED Address: home [address] [place] [phone] Name: KAYLA AU Address: home [address] [place] [place] [id number]
--- OUTSIDE RECORDS SUMMARY | 2023-12-10 00:57 | External Medical Summary | Summary of Care ---
Author Name Unknown Organization [facility] Address [address] [place] [address] Phone [phone] Care Team Providers Care Food Service Order Clerk Name Role Phone Mckenna Fernando PA-C Primary Care Provide r Reason for Visit * Reason Comments Follow Up WOUNDS TO RIGHT FOOT Encounter Details Date Type Department Care Team (Late st Contact Info) Description 11/23/2023 1:40 PM EDT Office Visit Wound Care, [address] [place] [address] Yajaira Gonzales, ALEXIS [address] [facility] [place] [address] Non-healing surgical wound, initial encounter*; Type 2 diabetes mellitus with hyperglycemia, unspecified whether local company intermodal truck driver insulin use ([facility]); PVD (peripheral vascular disease) ([facility]); Open wound of dorsum of foot Allergies Active Allergy Reactions Criticality Noted Date Comments Empagliflozin 12/02/2022 hives documented as of this encounter (statuses as of 11/23/2023) Medications Medication Sig Dispensed Refills Start Date End Date Status aspirin enteric coated 81 MG TBEC Take 1 Tab by mouth daily. 60 Tab 0 10/04/2017 Active metFORMIN HCl 1000 MG Oral Tablet (Glucophage) Take 1 Tablet by mouth 2 times a day with morning and evening meals. 0 Active Furosemide 40 MG Oral Tablet (Lasix) Take 1 Tablet by mouth in the morning and 1 Tablet before bedtime. 0 Active Lisinopril 30 MG Oral Tablet Take 1 Tablet by mouth in the morning. 0 Active glipiZIDE 5 MG Oral Tablet (Glucotrol) Take 1 Tablet by mouth in the morning. 0 Active Levemir 100 UNIT/ML Subcutaneous Solution (insulin Detemir) Inject 60 Units under the skin 2 times a day in the morning and at bedtime. 0 Active Rosuvastatin Calcium 10 MG Oral Tablet (Crestor) Take 1 Tablet by mouth daily. 0 06/07/2022 Active Farxiga 10 MG Oral Tablet (Dapagliflozin Propanediol) Take 1 Tablet by mouth daily. 0 01/18/2022 Active Clopidogrel Bisulfate 75 MG Oral Tablet (pLAVix) 1 Tablet. 0 01/12/2023 Active Omeprazole 40 MG Oral Capsule Delayed Release (PriLOSEC) Take 1 Capsule by mouth in the morning. 0 Active oxygen IN GAS Use 4 L/min(Oxygen) as directed. 0 Active Dakins (1/4 strength) 0.125 % External Solution Apply topically to affected area daily. Apply to right foot wound 0 Active Metoprolol Succinate ER 50 MG Oral Tablet Extended Release 24 Hour (toPROL XL) Take 1 Tablet by mouth in the morning. 0 02/13/2023 Active Tamsulosin HCl 0.4 MG Oral Capsule (Flomax) TAKE 1 CAPSULE BY MOUTH IN THE MORNING. DO NOT START BEFORE DECEMBER 11, 2022 0 03/13/2023 Active Cilostazol 100 MG Oral Tablet (Pletal) Take 1 Tablet by mouth in the morning and 1 Tablet before bedtime. 0 02/13/2023 Active Silver sulfADIAZINE 1 % External Cream (Silvadene) Apply to right foot wound daily. 50 g 3 04/20/2023 Active Clindamycin HCl 300 MG Oral Capsule Take 1 Capsule by mouth in the morning and 1 Capsule at noon and 1 Capsule before bedtime. 30 Capsule 0 11/16/2023 Active documented as of this encounter (statuses as of 11/23/2023) Active Problems Problem Noted Date Diagnosed Date Atherosclerosis of [place] ar sapna of right lower extremity with ulceration of midfoot 12/30/2022 Critical limb ischemia of right lower extremity 12/09/2022 Diabetic ulcer of right midf oot associated with type 2 diabetes mellitus, with bone involvement without evidence of necrosis 12/09/2022 Subacute osteomyelitis of right foot 12/09/2022 Pseudomonas infection 12/09/2022 Peripheral arterial disease 12/05/2022 Cellulitis of right lower extremity 12/05/2022 Hepatic steatosis 12/05/2022 Stage 2 chronic kidney disease 12/05/2022 Atherosclerosis of [place] artery of extremity Chronic respiratory failure with hypoxia 023 Dyslipidemia, goal LDL below 70 12/02/2022 Type 2 diabetes mellitus wit h diabetic peripheral angiopathy and gangrene, with long-term current use of insulin 10/01/2017 Obesity, Class II, BMI 35-39.9, isolated (see ac tual BMI) 10/01/2017 History of VARICELLA UNCOMPLICATED 12/30/2010 Overview: Had as a child per records History of MEASLES UNCOMPLICATED 12/30/2010 Overview: Had as a child per records History of MUMPS UNCOMPLICATED 12/30/2010 Overview: Had as a child per records Literacy level of illiterate 12/17/2010 HTN, goal below 130/80 12/17/2010 documented as of this encounter (statuses as of 11/23/2023) Resolved Problems Problem Noted Date Diagnosed Date Resolved Date NSTEMI (non-ST elevated myoc ardial infarction) 10/03/2017 12/09/2022 Angina pectoris 10/01/2017 12/09/2022 Back disorder 12/30/2010 12/09/2022 Overview: Long history of back pain after fall from roof in 2007. Had laminectomy in 2008. Tobacco use disorder 12/30/2010 023 Lumbar disc disorder with myelopathy 12/30/2010 12/09/2022 Overview: History of laminectomy documented as of this encounter (statuses as of 11/23/2023) Social History Tobacco Use Types Packs/Day Years Used Date Smoking Tobacco: Former Cigarettes 2 32 0 12/15/1967 - 12/15/1999 Smokeless Tobacco: Never Alcohol Use Standard Drinks/Week Comments Yes 0 (1 standard drink = 0.6 oz pur e alcohol) Rare. Sex and Gender Information Value Date Recorded Sex Assigned at Male 01/12/2023 2:33 AM EDT Gender Identity Male 01/12/2023 2:33 AM EDT Sexual Orientation Straight 01/12/2023 2: 33 AM EDT Job Start Date Occupation Industry Not on file Not on file Not on file documented as of this encounter Functional Status Functional Status Response Date of Assess ment Are you deaf or do you have serious difficulty h earing? No 12/06/2022 Are you blind or do you have serious difficulty seeing, even when wearing glasses? No 12/06/2022 Do you have serious difficul ty walking or climbing stairs? (5 years old or older) No 12/07/2022 Do you have difficulty dress ing or bathing? (5 years old or older) No 12/06/2022 Because of a physical, menta l, or emotional condition, do you have difficulty doing errands alone such as visiting a doctor s office or shopping? (15 years old or older) No 12/07/19 Cognitive Status Response Date of Assessm ent Because of a physical, menta l, or emotional condition, do you have serious difficulty concentrating, remembering, or making decisions? (5 years old or older) No 12/06/2022 documented as of this encounter Progress Notes * Yajaira Gonzales, DPM - 11/23/2023 2:12 PM EDT Images from the original note were not included. WOUND OUTPATIENT FOLLOW-UP NOTE Oliverio Monte 1955 HPI: Oliverio Monte is being seen today for follow-up of a R lateral surgical dehisced wound and R dorsal foot wound. He did have his surgical procedure on 10/27/23. States his wounds look worse today with increased pain and redness. Pt informs that he has been changing the dressing over R lateral foot wound with silvadene to the right foot daily. He has been ambulating with burning pain now.Daughter present. 11/23/2023- Today, pt presents for follow up. Has been doing the betadine and dry dressing daily. Stable eschar noted today. Walking to tolerance in CAM boot. Denies any other complaints. Daughter present. Current dressing: See Wound Assessment Dressing change frequency: every day RLE Compression: LLE Compression: RLE Wt Bearing Offloading: LLE Wt Bearing Offloading: RLE Non-Wt Bearing Offloading: LLE Non-Wt Bearing Offloading: Offloading Surface for Bed: Offloading Surface for Chair / Wheelchair: ROS was negative other than stated above. Tobacco History: Social History Tobacco Use Smoking Status Former Current packs/day: 0.00 Average packs/day: 2.0 packs/day for 32.0 years (64.0 ttl pk-yrs) Types: Cigarettes Start date: 12/15/1967 Quit date: 12/15/1999 Years since quittin.9 Smokeless Tobacco Never WOUND ASSESSMENT: Wound Grade/Stage/Type (if changed): Wound/Ulcer Etiology: Surgical Alteration in Skin Integrity Incision Anterior;Right;Lateral Foot (Active) Clinical Image 11/23/23 1400 Wound Length (cm) 7 cm 11/23/23 1400 Wound Width (cm) 2 cm 11/23/23 1400 Wound Depth (cm) -- (Unknown ) 11/23/23 1400 Granulation Tissue (%) none 11/23/23 1400 Necrotic Tissue (%) 100% 11/23/23 1400 Drainage none 11/23/23 1400 Odor (after cleansing wound) No 11/23/23 1400 Lyla-Wound (Surrounding Skin) Erythematous;Callus 11/23/23 1400 Wound Surface Area (cm^2) 14 cm^2 11/23/23 1400 Alteration in Skin Integrity Other (comment) Right Heel (Active) Alteration in Skin Integrity Pressure Injury Anterior;Right Foot (Active) Clinical Image 11/23/23 1359 Wound Length (cm) 1.7 cm 11/23/23 1359 Wound Width (cm) 0.5 cm 11/23/23 1359 Wound Depth (cm) -- (Unknown ) 11/23/23 1359 Drainage none 11/23/23 1359 Odor (after cleansing wound) No 11/23/23 1359 Lyla-Wound (Surrounding Skin) Erythematous 11/23/23 1359 Wound Surface Area (cm^2) 0.85 cm^2 11/23/23 1359 Wound/Ulcer Debridement Time Out: Correct Patient, Correct Site/Side/Position, Correct Procedure, Complete/Current Consent and Safety Issue Review Wound location: R lateral foot No debridement performed. Wound Profile Wound Location: Right dorsal foot No debridement performed. Non OR time Out: Time out was initiated under direction and supervision of provider . Correct patient identity - Yes Correct side and site - Yes Procedure matches verbalized consent -Yes Correct patient position - Yes Availability of correct implants and any special equipment or special requirements - Yes Time out occurred prior to procedure start - Yes Prophylactic antibiotic timing confirmed - N/A Non-healing surgical wound, initial encounter (primary encounter diagnosis) Open wound, left dorsal foot PVD ASSESSMENT/PLAN: - Pt has has been applying betadine and a DSD daily. Stable eschar noted. - WBAT - Continue short CAM boot to the RLE. - No debridement performed. - Pt to RTC in 2 weeks. If needs to be sooner, instructed to call in. Instructed to call with any problems or questions. Instructed to go to the ER with any worsening symptoms. Yajaira Gonzales DPM documented in this encounter Nursing Notes * Madelin Sylvester LPN - 11/23/2023 1:55 PM EDT ASSISTED TO SIT ON EXAM SEATING -- VOICED C/O INCREASED PAIN TO POSTERIOR FOOT FROM TOES TO HEEL. Does not c/o wound pain. Sites are dry as family continues to apply betadine per order daily. Wounds then foot washed with soap and water - towel dried - tolerated. Photos taken as well as measurements - will alert provider of ready for care. Treatment will be provided per order post exam. documented in this encounter Plan of Treatment Upcoming Encounters Date Type Department Care Team (Late st Contact Info) Description 12/07/2023 1:00 PM EDT Office Visit Wound Care, [facility] [address] [facility] [place] [address] Yajaira Gonzales DPM [address] [place] [address] Health Maintenance Due Date Last Done Comments Pneumococcal Vaccine: 65+ Years (1 of 2 - PCV) 1961 Albumin/Creatinine Ratio 1973 Diabetic Eye Exam 1973 Diabetic Foot Exam 1973 Hepatitis C Screening 1973 DTaP,Tdap,and Td Vaccines (1 - Tdap) 1974 Cologuard 02/24/2000 Colonoscopy 02/24/2000 Colorectal Cancer Screening 02/24/2000 Fecal Occult Blood Test 02/24/2000 Sigmoidoscopy 02/24/2000 Zoster Vaccines (1 of 2) 2005 Depression Screening 06/06/2018 06/06/2017 COVID-19 Vaccine ( - 2022- season) 2023 HbA1c 06/08/2023 12/06/2022, 10/01/2017 GFR 01/14/2024 01/13/2023, 06/0 01/2023, 01/06/2023, Additional history exists Influenza Vaccine (FLU shot) (Season Ended) 2024 AAA Screening Completed 01/12/2023 GARDASIL-HPV IMMUNIZATION SERIES Aged Out No longer eligible based on patient's age to complete this topic Hepatitis B Aged Out No longer eligi ble based on patient's age to complete this topic MENINGOCOCCAL (MENACTRA/MENVEO) Aged Out No longer eligible based on patient's age to complete this topic documented as of this encounter Medical Devices Implanted Type Area Churn Driller Helper Device Identifier Shelf Expiration Date Model / Serial / Lot Stent Peripheral 7 Diam [id number] - [id number] Implanted:Qty: 1 on 12/06/2022 by Jasper Laguerre MD at OR [facility] Right: [employer] : VASCULAR [id number] 06/07/2024 [id number] 40-150 / / [id number] documented as of this encounter Visit Diagnoses Diagnosis Non-healing surgical wound, initial encounter- Primary Type 2 diabetes mellitus with hyperglycemia, unspecified whether 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 Question Answer Comments Discussion of Advance Directives occurred with: Patient Code Status History Code Status Date Activated Date Inactivated Comments Full Code 10/01/2017 2:33 PM 10/03/2017 4:49 PM This order reflects the patients wishes and were consensually agreed upon. Question Answer Comments Discussion of Advance Directives occurred with: Not Discussed Does the patient have a Living Will? No Does the patient have Health Care Power of Security Systems Administrator? No Care Teams Food Service Order Clerk Relationship Specialty Start Date End Date Mckenna Fernando PA-C [address] [place] [address], [place] [address] PCP - General Physician Manager Maintenance 11/05/22 documented as of this encounter
--- OUTSIDE RECORDS SUMMARY | 2023-12-10 00:57 | External Medical Summary | Summary of Care ---
Author Name Unknown Organization [facility] Address [address] [place] [address] Phone [phone] Care Team Providers Care Production Statistical Clerk Name Role Phone Mckenna Fernando PA-C Primary Care Provide r Reason for Visit * Reason Comments Follow Up Right foot incision and pressure injury Encounter Details Date Type Department Care Team (Late st Contact Info) Description 11/16/2023 2:20 PM EDT Office Visit Wound Care, [address] [address] Yajaira Gonzales, ALEXIS [address] [facility] [place] [address] Non-healing surgical wound, initial encounter*; Type 2 diabetes mellitus with hyperglycemia, unspecified whether senior living insulin use ([facility]); PVD (peripheral vascular disease) ([facility]); Open wound of dorsum of foot; Cellulitis of right lower extremity Allergies Active Allergy Reactions Criticality Noted Date Comments Empagliflozin 12/02/2022 hives documented as of this encounter (statuses as of 11/16/2023) Medications Medication Sig Dispensed Refills Start Date [...] as of this encounter (statuses as of 11/16/2023) Active Problems Problem Noted Date Diagnosed Date Atherosclerosis of [place] ar sapna of right lower extremity with [...] 2 chronic kidney disease 12/05/2022 Atherosclerosis of [place] artery of extremity Chronic respiratory failure with [...] as of this encounter (statuses as of 11/16/2023) Resolved Problems Problem Noted Date Diagnosed Date [...] as of this encounter (statuses as of 11/16/2023) Social History Tobacco Use Types Packs/Day Years [...] this encounter Progress Notes * Yajaira Gonzales, ALEXIS - 11/16/2023 2:59 PM EDT Images from the original note [...] been ambulating with burning pain now.Daughter present. Current dressing: See Wound Assessment Dressing [...] Integrity Incision Anterior;Right;Lateral Foot (Active) Clinical Image 11/16/23 1432 Wound Length (cm) 5 cm 11/16/23 1432 Wound Width (cm) 1.8 cm 11/16/23 1432 Wound Depth (cm) 0.2 cm 11/16/23 1432 Yellow Fibrinous Slough (%) 1-25% 11/16/23 1432 Granulation Tissue (%) 51-75% 11/16/23 1432 Granulation Tissue Color red 11/16/23 1432 Drainage serosanguinous, moderate 11/16/23 1432 Odor (after cleansing wound) No 11/16/23 1432 Lyla-Wound (Surrounding Skin) Edema;Erythematous 11/16/23 1432 Wound Surface Area (cm^2) 9 cm^2 11/16/23 1432 Wound Volume (cm^3) 1.8 cm^3 11/16/23 1432 Alteration in Skin Integrity Other (comment) Right Heel (Active) Alteration in Skin Integrity Pressure Injury Anterior;Right Foot (Active) Clinical Image 11/16/23 1429 Wound Length (cm) 0.6 cm 11/16/23 1429 Wound Width (cm) 0.5 cm 11/16/23 1429 Wound Depth (cm) 0.2 cm 11/16/23 1429 Yellow Fibrinous Slough (%) 100% 11/16/23 1429 Drainage serosanguinous, moderate 11/16/23 1429 Odor (after cleansing wound) No 11/16/23 1429 Lyla-Wound (Surrounding Skin) Erythematous;Edema 11/16/23 1429 Wound Surface Area (cm^2) 0.3 cm^2 11/16/23 1429 Wound Volume (cm^3) 0.06 cm^3 11/16/23 1429 Wound/Ulcer Debridement Time Out: Correct Patient, Correct [...] foot PVD ASSESSMENT/PLAN: - Pt has has stalled and R lateral surgical wound is worse today. - Rx for Clindamycin sent to pharmacy. Instructed to take until finished. - Dispensed short CAM boot to the RLE. - No debridement performed. - Continue with Silvadene and informed pt to apply daily and DSD to Right lateral foot wound and dorsal foot. - Pt to RTC in 1 week. If needs to be sooner, instructed to call in. Instructed to call with any problems or questions. Instructed to go to the ER with any worsening symptoms. Yajaira Gonzales DPM documented in this encounter Nursing Notes * Madelin Sylvester LPN - 11/16/2023 2:38 PM EDT Assitsed to sit safely on exam seating - Amrit is aware to stay seated for his safety-- DIL at his side. Tubi personnel analyst and dressing removed - wounds to right foot increased pain and increased red tissue as well. Wounds washed with soap and water towel dried -- tolerance not good. Lidocaine applied so care /exam will be tolerated as 1430. STENT PROCEDURE ON . Photos and measurements taken -- will alert provider ready for care and will provide treatment per order post exam. documented in this encounter Plan of Treatment Upcoming Encounters Date Type Department Care Team (Late st Contact Info) Description 11/23/2023 1:40 PM EDT Office Visit Wound Care, [facility] [address] [place] [address] Yajaira Gonzales DPM [address] [place] [address] Health Maintenance Due Date Last Done Comments [...] this encounter Medical Devices Implanted Type Area [employer] Industrial Arts Teacher Device Identifier Shelf Expiration Date Model / Serial / Lot Stent Peripheral 7 Diam 150x40 - [id number] Implanted:Qty: 1 on 12/06/2022 by Jasper Laguerre MD at OR [facility] Right: [employer] : VASCULAR [id number] 06/07/2024 [id number] 40-150 / / [id number] documented as of this encounter Visit Diagnoses Diagnosis Non-healing surgical wound, initial encounter- Primary Type 2 diabetes mellitus with hyperglycemia, unspecified whether road roller engineer insulin use (HCC) PVD (peripheral vascular disease) (HCC) Peripheral vascular disease, unspecified Open wound of dorsum of foot Cellulitis of right lower extremity Cellulitis and abscess of leg, except foot documented in this encounter Advance Directives [...] the patient have Health Care Power of Regulatory Affairs Portfolio Leader? No Care Teams Production Statistical Clerk Relationship Specialty Start Date End Date Mckenna Fernando PA-C [address] [place], [place] [address] PCP - General Physician Network Admin 11/05/22 documented as of this encounter
--- OUTSIDE RECORDS SUMMARY | 2023-12-10 00:57 | External Medical Summary | Summary of Care ---
Author Name Unknown Organization [facility] Address [address] [place] [address] Phone [phone] Care Team Providers Care Communications Electrician Supervisor Name Role Phone Mckenna Fernando PA-C Primary Care Provide r Reason for Visit * Reason Comments Follow Up WOUNDS TO RIGHT FOOT Encounter Details Date Type Department Care Team (Late st Contact Info) Description 11/23/2023 1:40 PM EDT Office Visit Wound Care, [address] [place] [address] Yajaira Gonzales, ALEXIS [address] [facility] [place] [address] Non-healing surgical wound, initial encounter*; Type 2 diabetes mellitus with hyperglycemia, unspecified whether mechanical engineering technologist insulin use ([facility]); PVD (peripheral vascular disease) ([facility]); Open wound of dorsum [...] Problem Noted Date Diagnosed Date Atherosclerosis of te[place] ar sapna of right lower extremity with [...] 2 chronic kidney disease 12/05/2022 Atherosclerosis of te[place] artery of extremity Chronic respiratory failure with [...] EXAM SEATING -- VOICED C/O INCREASED PAIN documented in this encounter Plan of Treatment Upcoming Encounters Date Type Department Care Team (Late st Contact Info) Description 12/07/2023 1:00 PM EDT Office Visit Wound Care, [facility] [address] [place] [id number] Yajaira Gonzales DPM [address] [place] [address] Health Maintenance Due Date Last Done Comments [...] 2005 Depression Screening 06/06/2018 06/06/2017 COVID-19 Vaccine (1 - 2022- season) 2023 HbA1c 06/08/2023 12/06/2022, [...] this encounter Medical Devices Implanted Type Area Emergency Dept Tech Device Identifier Shelf Expiration Date Model / Serial / Lot Stent Peripheral 7 Diam 150x40 - [id number] Implanted:Qty: 1 on 12/06/2022 by Jasper Laguerre MD at [facility] Right: [employer] : VASCULAR [id number] 06/07/2024 [id number] 40-150 / / [id number] documented as of this encounter Visit Diagnoses Diagnosis Non-healing surgical wound, initial encounter- Primary Type 2 diabetes mellitus with hyperglycemia, unspecified whether mechanical engineering technologist insulin use (HCC) PVD (peripheral vascular disease) [...] the patient have Health Care Power of Server Service Assistant? No Care Teams Communications Electrician Supervisor Relationship Specialty Start Date End Date Mckenna Fernando PA-C [address] [facility] [address] PCP - General Physician Technical Service Engineer 11/05/22 documented as of this encounter
--- OUTSIDE RECORDS SUMMARY | 2023-12-10 00:57 | External Medical Summary | Continuity of Care Document ---
Author Name Unknown Organization [facility] Address [address] [place], [place] [id number] Care Team Providers Care J2Ee Developer Name Role Phone MeganstacieKayla kinney Primary Care Physician [phone] Encounter [facility] [id number] Date(s): 11/10/23 - 11/10/23 [facility] [address], [address] [place] [address] [phone] Encounter Diagnosis Peripheral arterial disease(Discharge Diagnosis) - 11/10/23 Discharge Disposition: Home or Self Care Attending Physician: LORENA Horan Lynn Referring Physician: AUDREY Walter Thad J Allergies, Adverse Reactions, Alerts Substance Reaction Severity Status Jardiance dizziness, nausea Active Assessment and Plan Extracted from: Title:Clinical Document Author:LORENA Horan Lynn Date:11/10/23 [facility] OUTPATIENT NOTE Name: LILLIAM SAEED Patient Number: [id number] : 1955 Date of Service: 11/10/2023 Chief Complaint: _Follow-up after right leg angio HPI: _Mr. Saeed is a middle-age male who presents to Dr. Greenberg's vascular cervically today for 2-week follow-up visit after undergoing a right leg angiography with MILK PICKUP DRIVER and stenting of his popliteal artery, and MILK PICKUP DRIVER of his superficial femoral artery. The procedure was recommended due to a right popliteal artery occlusion and nonhealing right foot wounds. Patient states he has not yet seen podiatry since his procedure, but his sojkkjdi-uw-rra and his son both believe that the foot wounds are improving. Patient states he has been having more pain than usual in his right anterior weathers, but states that he did do more walking than usual as well. He admits his chronic neuropathy pain from the knees to the toes, but does not feel that his foot pain is worse than it has been. Emotional Assessment (PHQ-2) (Data Documented on:11/10/2023 11:18) Hubbell down or depressed over last 2 weeks? 0 - Not at All Little interest in doing things? 0 - Not at All PHQ-2 Score: 0 - Emotional health assessment NEGATIVE Current Home Meds: (Last Updated 11/09 11:53) aspirin (aspirin 81 mg oral tablet, chewable) 81 mg PO Daily cilostazol (cilostazol 100 mg oral tablet) 1 tab PO bid clopidogrel (clopidogrel 75 mg oral tablet) 75 mg PO Daily dapagliflozin (Farxiga 10 mg oral tablet) 1 tab PO Daily diabetes supplies (One Touch Delica Plus (30G) Lancets) Use to test blood sugar TID. Dx Code E11.42 diabetes supplies (One Touch Verio Test Strips) Use to test blood sugar three times daily diabetic supplies (One Touch Verio Glucose Monitor) Test blood sugar before meals and at bedtime diabetic supplies (One Touch Delica (33G) Lancets) Test blood sugar before meals and at bedtime furosemide (furosemide 40 mg oral tablet) 1 tab PO Daily IF WEIGHT INCREASES OVERNIGHT 2-3 POUNDS OR 4-5 POUNDS PER WEEK, TAKE 1 EXTRA TABLET glipiZIDE (glipiZIDE 5 mg oral tablet) Take 1 tablet by mouth twice daily insulin detemir (Levemir FlexPen 100 units/mL subcutaneous solution) 80 unit subQ bid lisinopril (lisinopril 30 mg oral tablet) 1 tab PO Daily metFORMIN (metFORMIN 1000 mg oral tablet) 1 tab PO bid metoprolol (Metoprolol Succinate ER 50 mg oral tablet, extended release) 1 tab PO Daily metroNIDAZOLE (metroNIDAZOLE 500 mg oral tablet) TAKE 1 TABLET BY MOUTH IN THE MORNING, THEN 1 TABLET AT NOON AND 1 TABLET AT BEDTIME nitroglycerin (nitroglycerin 0.4 mg sublingual tablet) 0.4 mg SL q5min PRN: Chest Pain nortriptyline (nortriptyline 25 mg oral capsule) 1 cap PO qhs pantoprazole (pantoprazole 40 mg oral delayed release tablet) 40 mg PO Daily rosuvastatin (rosuvastatin 10 mg oral tablet) 1 tab PO Daily sodium hypochlorite topical (sodium hypochlorite 0.125% topical solution) apply to affected area daily syringe needles ([employer] needle Ultra-Fine Pen Etta 32G x 4mm) To be used with insulin injections twice daily. syringe needles (BD needle Ultra-Fine Pen 29G x 0.5") Use as directed with insulin. Max ____/day.Use new pen needle with each injection. tamSULOsin (tamsulosin 0.4 mg oral capsule) 0.4 mg PO Daily traMADol (traMADol 50 mg oral tablet) 50 mg PO q6h Allergies and Sensitivities: Jardiance(dizziness, nausea) Past Medical History: Problems: Tobacco user Peripheral arterial disease with history of revascularization Benign hypertension with coincident congestive heart failure Type 2 diabetes mellitus with diabetic peripheral angiopathy and gangrene, with long-term current use of insulin Amputation of toe of right foot Atherosclerosis of [place] arteries of extremities with intermittent claudication, bilateral legs Chronic respiratory failure with hypoxia, on home oxygen therapy Chronic diastolic (congestive) heart failure BETTE (obstructive sleep apnea) 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 Orthostatic: Last Updated 11/02/22 10:33 Date Lying 5 Min BP Lying 5 Min HR Standing 1 Min BP Standing 1 Min HR Standing 3 Min BP Standing 3 Min HR 11/02/22 142/86 96 118/84 100 Orthostatic blood pressures are the last 3 documented. Height and Weight: Last Updated 11/10/23 11:18 Date BMI Wt(kg) Wt(lb) Method Ht(cm) (ft-in) Method 11/10/23 109 240 Standing Scale 04/13/23 110.1 242 Standing Scale 12/22/22 108.8 239 Standing Scale Heights and Weights are the last 3 documented. Physical Exam Constitutional: In general patient is a an overweight but healthy-appearing well-nourished well-developed middle-aged male no distress. He is alert and oriented without any focal deficits. His left femoral artery puncture site is well- healed. His right DP Doppler signal is excellent. His toes demonstrate capillary refill at 3 seconds. His right dorsal foot wound does appear to be much more shallow than it did preoperatively, and his right lateral foot wound appears to have good granulation tissue. Measurements were not taken of the wounds. ASSESSMENT: _ PLAN: _ 1 ) _peripheral arterial disease, status post right leg angiogram with MILK PICKUP DRIVER and stenting of his popliteal artery and MILK PICKUP DRIVER of his SFA Patient is overall doing well since his recent procedure. He has not good Doppler signal in the right foot, and his wounds appear subjectively to be improving. He does have a follow-up appointment with podiatry next week. Patient and his family were advised that if they have any concerns at the podiatry office they can call us and we can reexamine. Otherwise he would like to see how his wounds are progressing in about 6 weeks with an office visit. He is to continue using the dressings recommended by podiatry in the meantime and to call us if he has any other concerns himself. They are agreeable this plan. Thank you for letting us participate in the care of this patient. I have personally [id number]___ minutes performing rizp-rj-mphq and yga-bbpx-ou-face activities on this date of service.Time does not include separately reported services. Activities Include: _x_ review of the medical record x__ obtaining a history _x_ physical exam/evaluation __ review labs x__ review radiology reports _x_ counseling/educating patient/family/caregiver __ discussion/referral to other healthcare professional _x_ documenting care in the medical record __ independent interpretation of results _x_ communication of results to patient/family/caregiver _x_ coordination of care Medications aspirin 81 mg oral tablet, chewable Start: 06/24/20 13:08:00 EST, 1 tab, PO, Daily, Disp# 90 tab, Refills: 3, Pharmacy: [facility]/pharmacy #[id number] Start Date: 06/24/20 Status: Ordered BD needle Ultra-Fine Pen 29G x 0.5" Start: 11/02/22 13:45:00 EDT, See Instructions, Disp# 100 each, Refills: 5, Use as directed with insulin. Max ____/day. Use new pen needle with each injection., Pharmacy: [facility]/pharmacy #[id number] Start Date: 11/02/22 Status: Ordered BD needle Ultra-Fine Pen Etta 32G x 4mm Start: 12/11/21 9:41:00 EDT, See Instructions, Disp# 100 each, Refills: 3, To be used with insulin injections twice daily., Note to Pharmacy: ICD-10: E11.42, Pharmacy: [facility]/pharmacy #[id number] Start Date: 12/11/21 Status: Ordered cilostazol 100 mg oral tablet Start: 05/09/23 9:59:00 EDT, 1 tab, PO, bid, Disp# 180 tab, Refills: 3, Pharmacy: [facility] Start Date: 05/09/23 Status: Ordered clopidogrel 75 mg oral tablet Start: 04/08/23 13:05:00 EDT, 1 tab, PO, Daily, Disp# 90 tab, Refills: 3, Pharmacy: [facility] Start Date: 04/08/23 Status: Ordered Farxiga 10 mg oral tablet Start: 05/10/23 9:24:00 EDT, 1 tab, PO, Daily, Disp# 30 tab, Refills: 11, Pharmacy: [id number] Start Date: 05/10/23 Status: Ordered furosemide 40 mg oral tablet Start: 05/09/23 9:59:00 EDT, 1 tab, PO, Daily, Disp# 90 tab, Refills: 3, IF WEIGHT INCREASES OVERNIGHT 2-3 POUNDS OR 4-5 POUNDS PER WEEK, TAKE 1 EXTRA TABLET, Pharmacy: [facility] Start Date: 05/09/23 Status: Ordered glipiZIDE 5 mg oral tablet Start: 12/27/22 8:19:00 EDT, See Instructions, Disp# 60 tab, Refills: 11, Take 1 tablet by mouth twice daily, Pharmacy: [facility] Start Date: 12/27/22 Status: Ordered Levemir FlexPen 100 units/mL subcutaneous solution Start: 05/23/23 14:38:00 EDT, 80 unit =, subQ, bid, Disp# 270 mL, Refills: 3, Pharmacy: [facility] Start Date: 05/23/23 Status: Ordered lisinopril 30 mg oral tablet Start: 08/02/23 20:56:00 EST, 1 tab, PO, Daily, Disp# 90 tab, Refills: 1, Pharmacy: [facility] Start Date: 08/02/23 Status: Ordered metFORMIN 1000 mg oral tablet Start: 08/02/23 20:56:00 EST, 1 tab, PO, bid, Disp# 180 tab, Refills: 1, Pharmacy: [facility] Start Date: 08/02/23 Status: Ordered Metoprolol Succinate ER 50 mg oral tablet, extended release Start: 08/02/23 20:56:00 EST, 1 tab, PO, Daily, Disp# 90 tab, Refills: 1, Pharmacy: [facility]7 Start Date: 08/02/23 Status: Ordered metroNIDAZOLE 500 mg oral tablet TAKE 1 TABLET BY MOUTH IN THE MORNING, THEN 1 TABLET AT NOON AND 1 TABLET AT BEDTIME Start Date: 12/22/22 Status: Ordered nitroglycerin 0.4 mg sublingual tablet Start: 06/24/20 13:08:00 EST, 1 tab, SL, q5min, Disp# 25 tab, Refills: 3, PRN: Chest Pain, [id number] Start Date: 06/24/20 Status: Ordered nortriptyline 25 mg oral capsule Start: 05/13/23 7:54:00 EDT, 1 cap, PO, qhs, Disp# 30 cap, Refills: 5, Pharmacy: [id number] Start Date: 05/13/23 Stop Date: 06/12/23 Status: Ordered One Touch Delica (33G) Lancets Start: 08/07/18 9:27:22 EST, See Instructions, Disp# 300 unit, Refills: 3, Test blood sugar before meals and at bedtime, [id number] Start Date: 08/07/18 Status: Ordered One Touch Delica Plus (30G) Lancets Start: 12/11/21 9:41:00 EDT, See Instructions, Disp# 300 each, Refills: 3, Use to test blood sugar TID. Dx Code E11.42, Pharmacy: [facility]/pharmacy #[id number] Start Date: 12/11/21 Status: Ordered One Touch Verio Glucose Monitor Start: 10/05/17 11:22:00, See Instructions, Disp# 1 each, Test blood sugar before meals and at bedtime, Pharmacy: [facility] Start Date: 10/05/17 Status: Ordered One Touch Verio Test Strips Start: 12/11/21 9:41:00 EDT, See Instructions, Disp# 300 each, Refills: 3, Use to test blood sugar three times daily, Note to Pharmacy: ICD-10: E11.42, Pharmacy: [facility]/pharmacy #[id number] Start Date: 12/11/21 Status: Ordered pantoprazole 40 mg oral delayed release tablet Start: 12/22/22 15:04:00 EDT, 1 tab, PO, Daily Start Date: 12/22/22 Status: Ordered rosuvastatin 10 mg oral tablet Start: 05/09/23 9:59:00 EDT, 1 tab, PO, Daily, Disp# 90 tab, Refills: 3, Pharmacy: [id number] Start Date: 05/09/23 Status: Ordered sodium hypochlorite 0.125% topical solution Start: 03/03/23 14:10:00 EDT, See Instructions, Disp# 473 mL, Refills: 2, apply to affected area daily, Pharmacy: [id number] Start Date: 03/03/23 Status: Ordered tamsulosin 0.4 mg oral capsule Start: 12/22/22 15:03:00 EDT, 1 cap, PO, Daily Start Date: 12/22/22 Status: Ordered traMADol 50 mg oral tablet Start: 11/10/23 11:52:00 EDT, 1 tab, PO, q6h, Disp# 12 tab, X 3 day, Stop: 11/13/23 11:52:00 EDT, Pharmacy: [id number] Start Date: 11/10/23 Stop Date: 11/13/23 Status: Ordered Problem List Condition Confirmation Course Effective Dates Status Health Status Informant Amputation of toe of right foot Confirmed Active Benign hypertension with coincident congestive heart failure Confirmed Active Chronic diastolic (congestive) heart failure Confirmed Active Chronic respiratory failure with hypoxia, on home oxygen therapy Confirmed Active Nonocclusive coronary atherosclerosis of [place] coronary artery Confirmed Active Diabetic peripheral neuropathy associated with type 2 diabetes mellitus Confirmed Active Hyperlipidemia Confirmed Active Atherosclerosis of [place] arteries of extremities with intermittent claudication, bilateral legs Confirmed Active BETTE (obstructive sleep apnea) Confirmed Active Peripheral arterial disease with history of revascularization Confirmed Active Tobacco user Confirmed Active Type 2 diabetes mellitus with diabetic peripheral angiopathy and gangrene, with long-term current use of insulin Confirmed Active Diagnosis Diagnosis Type Effective Dates Health Status Clinical Service Informant Peripheral arterial disease Discharge Diagnosis 11/10/23 Procedures Procedure Date Related Diagnosis Body Site [...] Com pleted [facility]03[facility]17 [facility]: 1. Cardiomegaly without radiographic evidence of congestive failure 2. Right basiar opacities are similar to previous and likely represent scarring/atelectasis. Correlate clinically for evidence of a superimposed pneumonitis [facility] Imp[facility]: 1. No pulmonary emboli identified 2. Subsegmental bilateral atelectasis 3. [facility] Imp[facility]: 1. No acute abnormality. incidental note is made of diverticulosis without diverticulitis [facility] Right 5th toe [facility] Impression: 1. No evidence of osteomyelitis or abscess [facility] Impression: 1. No focal cortical erosion/osteolysis or agressive periosteal reaction identified to suggest osteomyelitis. No fracture or bone lesion. Scattered mhek-mn-wghanhfs osteoarthritis. Plantar calcaneal spur. Achilles enthesophytes Social History Social History Type Response Tobacco Former smoker, Cigar ettes Smoking Status Current every day he ed smoker Sex Male [facility]VI Outpt Note * LORENA Horan Lynn: PERFORM Event Display: [facility] Outpt Note Authored Date: [id number] [facility] OUTPATIENT NOTE Name: LILLIAM SAEED Patient Number: [id number] : 1955 Date of Service: 11/10/2023 Chief Complaint: _Follow-up after right leg angio HPI: _Mr. Saeed is a middle-age male who presents to Dr. Greenberg's vascular cervically today for2-week follow-up visit after undergoing a right leg angiography with MILK PICKUP DRIVER and stenting of his popliteal artery, and MILK PICKUP DRIVER of his superficial femoral artery. The procedure was recommended due to a right p opliteal artery occlusion and nonhealing right foot wounds. Patient states he has not yet seen podiatry since his procedure, but his nlzafqtn-sy-neg and his son both believe that the foot wounds are improving. Patient states he has been having more pain than usual in his right anterior weathers, but states that he did do more walking than usual as well. He admits his chronic neuropathy pain from the knees to the toes, but does not feel that his foot pain is worse than it has been. Emotional Assessment (PHQ-2) (Data Documented on:11/10/2023 11:18) Hubbell down or depressed over last 2 weeks? 0 - Not at All Little interest in doing things? 0 - Not at All PHQ-2 Score: 0 - Emotional health assessment NEGATIVE Current Home Meds: (Last Updated 11/09 11:53) aspirin (aspirin 81 mg oral tablet, chewable) 81 mg PO Daily cilostazol (cilostazol 100 mg oral tablet) 1 tab PO bid clopidogrel (clopidogrel 75 mg oral tablet) 75 mg PO Daily dapagliflozin (Farxiga 10 mg oral tablet) 1 tab PO Daily diabetes supplies (One Touch Delica Plus (30G) Lancets) Use to test blood sugar TID. Dx Code E11.42 diabetes supplies (One Touch Verio Test Strips) Use to test blood sugar three times daily diabetic supplies (One Touch Verio Glucose Monitor) Test blood sugar before meals and at bedtime diabetic supplies (One Touch Delica (33G) Lancets) Test blood sugar before meals and at bedtime furosemide (furosemide 40 mg oral tablet) 1 tab PO Daily IF WEIGHT INCREASES OVERNIGHT 2-3 POUNDS OR 4-5 POUNDS PER WEEK, TAKE 1 EXTRA TABLET glipiZIDE (glipiZIDE 5 mg oral tablet) Take 1 tablet by mouth twice daily insulin detemir (Levemir FlexPen 100 units/mL subcutaneous solution) 80 unit subQ bid lisinopril (lisinopril 30 mg oral tablet) 1 tab PO Daily metFORMIN (metFORMIN 1000 mg oral tablet) 1 tab PO bid metoprolol (Metoprolol Succinate ER 50 mg oral tablet, extended release) 1 tab PO Daily metroNIDAZOLE (metroNIDAZOLE 500 mg oral tablet) TAKE 1 TABLET BY MOUTH IN THE MORNING, THEN 1 TABLET AT NOON AND 1 TABLET AT BEDTIME nitroglycerin (nitroglycerin 0.4 mg sublingual tablet) 0.4 mg SL q5min PRN: Chest Pain nortriptyline (nortriptyline 25 mg oral capsule) 1 cap PO qhs pantoprazole (pantoprazole 40 mg oral delayed release tablet) 40 mg PO Daily rosuvastatin (rosuvastatin 10 mg oral tablet) 1 tab PO Daily sodium hypochlorite topical (sodium hypochlorite 0.125% topical solution) apply to affected area daily syringe needles (BD needle Ultra-Fine Pen Etta 32G x 4mm) To be used with insulin injections twice daily. syringe needles (BD needle Ultra-Fine Pen 29G x 0.5") Use as directed with insulin. Max ____/day.Use new pen needle with each injection. tamSULOsin (tamsulosin 0.4 mg oral capsule) 0.4 mg PO Daily traMADol (traMADol 50 mg oral tablet) 50 mg PO q6h Allergies and Sensitivities: Jardiance(dizziness, nausea) Past Medical History: Problems: Tobacco user Peripheral arterial disease with history of revascularization Benign hypertension with coincident congestive heart failure Type 2 diabetes mellitus with diabetic peripheral angiopathy and gangrene, with long-term current use of insulin Amputation of toe of right foot Atherosclerosis of [place] arteries of extremities with intermittent claudication, bilateral legs Chronic respiratory failure with hypoxia, on home oxygen therapy Chronic diastolic (congestive) heart failure BETTE (obstructive sleep apnea) 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 Orthostatic: Last Updated 11/02/22 10:33 Date Lying 5 Min BP Lying 5 Min HR Standing 1 Min BP Standing 1 Min HR Standing 3 Min BP Standing 3 Min HR 11/02/22 142/86 96 118/84 100 Orthostatic blood pressures are the last 3 documented. Height and Weight: Last Updated 11/10/23 11:18 Date BMI Wt(kg) Wt(lb) Method Ht(cm) (ft-in) Method 11/10/23 109 240 Standing Scale 04/13/23 110.1 242 Standing Scale 12/22/22 108.8 239 Standing Scale Heights and Weights are the last 3 documented. Physical Exam Constitutional: In general patient is a an overweight but healthy-appearing well-nourished well-developed middle-aged male no distress. He is alert and oriented without any focal deficits. His left femoral artery puncture site is well-healed. His right DP Doppler signal is excellent. His toes demonstrate capillary refill at 3 seconds. His right dorsal foot wound does appear to be much more shallow than it did preoperatively, and his right lateral foot wound appears to have good granulation tissue. Measurements were not taken of the wounds. ASSESSMENT: _ PLAN: _ 1 ) _peripheral arterial disease, status post right leg angiogram with MILK PICKUP DRIVER and stenting of his popliteal artery and MILK PICKUP DRIVER of his SFA Patient is overall doing well since his recent procedure. He has not good Doppler signal in the right foot, and his wounds appear subjectively to be improving. He does have a follow-up appointment with podiatry next week. Patient and his family were advised that if they have any concerns at the podiatry office they can call us and we can reexamine. Otherwise he would like to see how his wounds are progressing in about 6 weeks with an office visit. He is to continue using the dressings recommended by podiatry in the meantime and to call us if he has any other concerns himself. They are agreeable this plan. Thank you for letting us participate in the care of this patient. I have personally cpanc25___ minutes performing dvnd-js-xlzw and wid-oeig-gy-face activities on this date of service.Time does not include separately reported services. Activities Include: _x_ review of the medical record x__ obtaining a history _x_ physical exam/evaluation __ review labs x__ review radiology reports _x_ counseling/educating patient/family/caregiver __ discussion/referral to other healthcare professional _x_ documenting care in the medical record __ independent interpretation of results _x_ communication of results to patient/family/caregiver _x_ coordination of care Electronic Signature on File CC: Kayla Fernando PA-C,[facility] [address] [address] Electronically Reviewed/Signed by: Melissa Horan PA-C Author Signature Dt/Tm:11/10/2023 02:49 PM [facility] [place] [address], [facility] [address] [place] [address] LM Patient Care team information Care Team Personnel Name: AUDREY Enrique Terra L Position: Nurse Pract - Vascular Surg Member Role: Lifetime Relationship Address: Address: [address] [place] [address] [place] Name: Prasanna Wilson Catherine Position: Pharmacist Member Role: Pharmacy - Lifetime Address: Address: [facility] [address] [place] [address] [place] Name: LORENA Gaston Bridget M Position: Physician Filler And Trimmer - Vascular Surg Member Role: Lifetime Relationship Address: Address: [address] [facility] [address] [place] [address] [place] Name: LORENA Horan Lynn Position: Physician Filler And Trimmer Exempt - Vasc Surg Member Role: Lifetime Relationship Address: Address: [address] [place] [id number] [place] Name: LORENA Fernando Jessica A Position: Physician Asst Exmpt - Family Med Member Role: Primary Care Provider Address: Address: [address] [place] [address] [place] Care Team Related Persons Name: KAYLA SAEED Address: home [address] [place] [address] Name: LILLIAM SAEED Address: home [address] [facility] [place] [phone] Name: KAYLA AU Address: home [address] [place] [phone]
--- OUTSIDE RECORDS SUMMARY | 2023-12-10 00:58 | External Medical Summary | Summary of Care ---
Author Name Unknown Organization [facility] Address [address] [place] [address] Phone [phone] Care Team Providers Care Flyer Maker Name Role Phone Mckenna Fernando PA-C Primary Care Provide r Reason for Visit * Reason Onset Date Comments Appointment 11/07/2023 Encounter Details Date Type Department Care Team (Late st Contact Info) Description 11/07/2023 Telephone Wound Care, [address] [facility] [place] [address] Yajaira Gonzales DPM [address] [facility] [place] [address] Appointment Allergies Active Allergy Reactions Criticality Noted Date Comments Empagliflozin 12/02/2022 hives documented as of this encounter (statuses as of 11/07/2023) Medications Medication Sig Dispensed Refills Start Date [...] wound daily. 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 Wound is healing well. * Telephone Encounter - Sanna Mcdaniels OSA - 11/07/2023 2:21 PM EDT Called patient and Lm for them to CB and reschedule his appointment in wound care to the morning due to the nurses schedule. Ok per jelena. documented in this encounter Plan of Treatment Upcoming Encounters Date Type Department Care Team (Late st Contact Info) Description 11/16/2023 2:20 PM EDT Office Visit Wound Care, [address] [place] [address] Yajaira Gonzales DPM [address] [place] [address] Health Maintenance Due Date Last Done Comments [...] HbA1c 06/08/2023 12/06/2022, 10/01/2017 GFR 01/14/2024 01/13/2023, 0601/2023, 01/06/2023, Additional history exists Influenza Vaccine (FLU [...] this encounter Medical Devices Implanted Type Area Valve Assembler Device Identifier Shelf Expiration Date Model / Serial / Lot Stent Peripheral 7 Diam 150x40 - [id number] Implanted:Qty: 1 on 12/06/2022 by [place] [facility] [place] [employer] : VASCULAR [id number] 06/07/2024 [id number] 40-150 / / [id number] documented as of this encounter Advance Directives Latest Code Status [...] the patient have Health Care Power of Team Leader Surgery? No Care Teams Flyer Maker Relationship Specialty Start Date End Date Mckenna Fernando PA-C [address] [place], [place] [address] [address] PCP - General Physician Java Support Engineer 11/05/22 documented as of this encounter
--- OUTSIDE RECORDS SUMMARY | 2023-12-10 00:58 | External Medical Summary | Summary of Care ---
Author Name Unknown Organization [facility] Address [address] [place] [address] Phone [phone] Care Team Providers Care Land Surveying Party Chief Name Role Phone Mckenna Fernando PA-C Primary Care Provide r Reason for Visit * Reason Onset Date Comments Appointment 11/07/2023 Encounter Details Date Type Department Care Team (Late st Contact Info) Description 11/07/2023 Telephone Wound Care, [facility] [address] [place] [address] Yajaira Gonzales DPM [address] [facility] [place] [address] Appointment Allergies Active Allergy Reactions Criticality Noted [...] Problem Noted Date Diagnosed Date Atherosclerosis of [place] ar sapna of right lower extremity with [...] 2 chronic kidney disease 12/05/2022 Atherosclerosis of [place] artery of extremity Chronic respiratory failure with [...] encounter Miscellaneous Notes * Telephone Encounter - Sanna Mcdaniels OSA - 11/07/2023 2:21 PM EDT Called patient and Lm for them to CB and reschedule his appointment in wound care to the morning due to the nurses schedule. Ok per jelena. documented in this encounter Plan of Treatment Upcoming Encounters Date Type Department Care Team (Late st Contact Info) Description 11/09/2023 1:20 PM EDT Office Visit Wound Care, [address] [place] [address] Yajaira Gonzales DPM [address] [place] [address] Health Maintenance Due Date Last Done Comments [...] this encounter Medical Devices Implanted Type Area Gas Collection System Operator Device Identifier Shelf Expiration Date Model / Serial / Lot Stent Peripheral 7 Diam 150x40 - [id number] Implanted:Qty: 1 on 12/06/2022 [place] Laguer[place] [facility] [place] [employer] : VASCULAR [id number] 06/07/2024 [id number] 40-150 / / [id number] documented as of this encounter Advance Directives [...] the patient have Health Care Power of Computer Systems Security Administrator? No Care Teams Land Surveying Party Chief Relationship Specialty Start Date End Date Mckenna Fernando PA-C [address] [place] [address], [place] [address] PCP - General Physician Sewing Room Supervisor 11/05/22 documented as of this encounter
[2023-12-10 05:05] LABS: Basophils # (auto) 0.05 K/uL (0.00-0.20); Basophils % (auto) 0.3 %; Eosinophils # (auto) 0.14 K/uL (0.00-0.50); Eosinophils % (auto) 0.8 %; Hematocrit (blood only) 31.8 % (42.0-52.0); Hemoglobin 9.6 g/dl (14.0-18.0); Immature Granulocytes # (auto) 0.14 K/uL (0.01-0.20); Immature Granulocytes % (auto) 0.8 %; Lymphocytes # (auto) 1.28 K/uL (1.20-3.40); Lymphocytes % (auto) 7.3 %; Mean Corpuscular Hemoglobin 26.1 pg (25.0-34.0); Mean Corpuscular Hgb Conc 30.2 g/dL (32.0-36.0); Mean Corpuscular Volume 86.4 fL (80.0-100.0); Mean Platelet Volume 10.2 fL (9.4-12.4); Monocytes # (auto) 1.17 K/uL (0.11-0.59); Monocytes % (auto) 6.6 %; Neutrophils # (auto) 14.83 K/uL (1.40-6.50); Neutrophils % (auto) 84.2 %; Platelet Count 357 K/uL (130-400); RDW Coefficient of Variation 15.4 % (11.5-14.5); RDW Standard Deviation 49.2 fL (36.4-46.3); Red Blood Count 3.68 M/uL (4.70-6.10); White Blood Count 17.61 K/ul (4.8-10.8)
[2023-12-10 05:27] LABS: iSTAT Allen Test Pass; iSTAT Art Bld Gas pCO2 Correct 51 mmHg (35-46); iSTAT Art Bld Gas pH Corrected 7.389 (7.35-7.45); iSTAT Arterial Blood Gas HCO3 31 meg/L (19-24); iSTAT Arterial Blood Gas pCO2 50 mmHg (35-46); iSTAT Arterial Blood Gas pO2 67 mmHg (80-95); iSTAT Arterial Blood Gas pO2 C 69; iSTAT Carbon Dioxide 32 mmol/L (24-31); iSTAT FiO2 55 %; iSTAT Hematocrit 31 % (42-52); iSTAT Hemoglobin 10.5 g/dl (14.0-18.0); iSTAT Potassium 4.5 mmol/L (3.3-5.0); iSTAT Site L Radial; iSTAT Sodium 132 mmol/L (135-144)
[2023-12-10 05:32] LABS: BUN Creatinine Ratio 20.7 (10-20); Calcium 8.4 mg/dl (8.6-10.3); Creatinine Clr Calc Pharmacy 91.1 ml/min; Est GFR (African American) 98.7 ml/min; Est GFR (Non-African American) 85.2 ml/min; Potassium 4.5 mmol/L (3.5-5.1)
--- OUTSIDE RECORDS SUMMARY | 2023-12-10 05:52 | External Medical Summary | Summary of Care ---
Author Name Unknown Organization [facility] Address [address] [place] [address] Phone [phone] Care Team Providers Care Curriculum Facilitator Name Role Phone Mckenna Fernando PA-C Primary Care Provide r Reason for Visit * Reason Comments Follow Up RLE -- FOOT INCISION AND WOOD Encounter Details Date Type Department Care Team (Late st Contact Info) Description 12/07/2023 1:00 PM EDT Office Visit Wound Care, [facility] [address] [place] [address] Yajaira Gonzales DPM [address] [facility] [place] [address] Non-healing surgical wound, initial encounter*; Type 2 diabetes mellitus with hyperglycemia, unspecified whether skilled nursing insulin use (HCC); PVD (peripheral vascular disease) ([facility]); Open wound of dorsum of foot Allergies Active Allergy Reactions Criticality Noted Date Comments Empagliflozin 12/02/2022 hives documented as of this encounter (statuses as of 12/07/2023) Medications Medication Sig Dispensed Refills Start Date [...] before bedtime. 30 Capsule 0 11/16/2023 Active Additional Information Patient not taking.Reported on 12/07/2023 documented as of this encounter (statuses as of 12/07/2023) Active Problems Problem Noted Date Diagnosed Date Atherosclerosis of [place]it[place] ar sapna of right lower extremity with [...] 2 chronic kidney disease 12/05/2022 Atherosclerosis of [place]it[place] artery of extremity Chronic respiratory failure with [...] as of this encounter (statuses as of 12/07/2023) Resolved Problems Problem Noted Date Diagnosed Date [...] as of this encounter (statuses as of 12/07/2023) Social History Tobacco Use Types Packs/Day Years [...] Progress Notes * Yajaira Gonzales, ALEXIS - 12/07/2023 1:33 PM EDT Images from the original note [...] boot. Denies any other complaints. Daughter present. 12/07/2023- Today, pt presents for follow up. He presents today with a purple foot and in increased pain. States his foot has been like this for a week, but did not call our clinic or his vascular surgeon. His foot appears worse. Denies any N/V/F/C, SOB. Daughter present. Current dressing: See Wound Assessment [...] Integrity Incision Anterior;Right;Lateral Foot (Active) Clinical Image 12/07/23 1323 Wound Length (cm) 8 cm 12/07/23 1323 Wound Width (cm) 2.7 cm 12/07/23 1323 Wound Depth (cm) -- (Unknown ) 12/07/23 1323 Drainage none 12/07/23 1323 Odor (after cleansing wound) No 12/07/23 1323 Lyla-Wound (Surrounding Skin) Callus;Erythematous 12/07/23 1323 Wound Surface Area (cm^2) 21.6 cm^2 12/07/23 1323 Alteration in Skin Integrity Other (comment) Right Heel (Active) Alteration in Skin Integrity Pressure Injury Anterior;Right Foot (Active) Clinical Image 12/07/23 1322 Wound Length (cm) 3.5 cm 12/07/23 1322 Wound Width (cm) 4 cm 12/07/23 1322 Wound Depth (cm) -- (Unknown ) 12/07/23 1322 Drainage none 12/07/23 1322 Odor (after cleansing wound) No 12/07/23 1322 Lyla-Wound (Surrounding Skin) Erythematous 12/07/23 1322 Wound Surface Area (cm^2) 14 cm^2 12/07/23 1322 Wound/Ulcer Debridement Time Out: Correct Patient, Correct [...] and a DSD daily. Stable eschar noted. Foot is cold, cyanotic and edematous. Increased pain noted. - WBAT - Continue short CAM boot to the RLE. - No debridement performed. - Advised pt to contact vascular surgeon and head to [facility] for urgent care. - Redness marked on dorsal foot/leg. - Pt to follow up as needed from vascular recommendations. Yajaira Gonzales DPM documented in this encounter Nursing Notes * Madelin Sylvester LPN - 12/07/2023 1:18 PM EDT ASSISTED TO SIT ON EXAM SEATING FROM W/C --- AWARE NOT TO RISE UNASSISTED FOR HIS SAFETY. ARIADNA CONTINUES TO STATE SEVERE PAIN NOT GOING AWAY IN ALL OF FOOT AT THIS TIME. WOUNDS AND INCISION LINE ARE DRY FROM bETA DINE WASH. Washed with soap and water towel dried -- photos and measurements taken Will alert provider ready for care. Will provide tx as per provider's order post exam. documented in this encounter Plan of Treatment Health Maintenance Due Date Last Done Comments [...] this encounter Medical Devices Implanted Type Area Supervisor Asbestos Textile Device Identifier Shelf Expiration Date Model / Serial / Lot Stent Peripheral 7 Diam 150x40 - [id number] Implanted:Qty: 1 on 12/06/2022 by Jasper Laguerre MD at [place] [facility] [place] SFA [employer] : VASCULAR [id number] 06/07/2024 [id number] 40-150 / / [id number] documented as of this encounter Visit Diagnoses Diagnosis Non-healing surgical wound, initial encounter- Primary Type 2 diabetes mellitus with hyperglycemia, unspecified whether superintendent container terminal insulin use (HCC) PVD (peripheral vascular disease) [...] the patient have Health Care Power of Rock Worker? No Care Teams Curriculum Facilitator Relationship Specialty Start Date End Date Mckenna Fernando PA-C [address] [place] [address] PCP - General Physician Security Officer Supervisor 11/05/22 documented as of this encounter
[2023-12-10] MEDS: PROPOFOL BOLUS FROM BAG IV PRN (07:34)
[2023-12-10] MEDS: FUROSEMIDE INJ 20 MG/2 ML VIAL IV ONE (08:56)
[2023-12-10] MEDS: LANTUS PER UNIT CHARGE SC ONE (09:31)
--- NOTE | 2023-12-10 09:31 | Critical Care Progress Note ---
Date of Service December 10, 2023 Assessment & Plan (1) Acute and chronic respiratory failure: (2) Endotracheally intubated: (3) RVF (right ventricular failure): (4) Bacteremia due to Staphylococcus: (5) PAD (peripheral artery disease): (6) Septic shock: (7) Ischemic foot: Plan Medically complex 68-year-old male with a history of progressive vascular disease and ischemic right lower extremity admitted to the hospital with severe cellulitis and possible osteomyelitis of the right lower extremity. He was positive for bacteremia with Staphylococcus species. Currently on multiple antibiotics with ID consult pending. Underwent attempted revascularization of the right lower extremity which was unsuccessful. He was extubated in the OR and ultimately reintubated due to hypoxemic respiratory failure. He was also found to be in shock and is currently requiring vasopressors. He is now transferred to the ICU. Neurologic: Currently on sedation vacation and following commands. Plans to potentially extubate later today. Pulmonary: Patient with history of chronic hypoxic respiratory failure and now with acute on chronic hypoxic respiratory failure from RV dysfunction. Currently on SBT with possible plans for extubation. Chest x-ray with evidence of pulmonary edema. IV diuretics given. Will obtain sputum culture. Cardiovascular: Cardiac POCUS with dilated IVC, dilated RV and dilated LA. LVEF appears intact. No signs of pericardial effusion. Official echo pending. BNP currently low at 75 pg/mL. Troponin mildly elevated likely from demand ischemia. Will continue to trend. EKG without ischemic changes. Maintain maps above 65 mmHg. Continue norepinephrine infusion and wean as tolerated. Gastrointestinal: NPO. OG tube in place. LFTs unremarkable. If extubated, will perform dysphagia screen and potentially advance diet as tolerated. Renal: Mild hyponatremia likely due to hypervolemic hyponatremia. 20 mg IV Lasix given today. Infectious disease: Patient with staph species growing from blood. Currently on broad-spectrum antibiotics with clindamycin, Zosyn and daptomycin. There was initially concern for necrotizing fasciitis. Discussed with vascular surgeon who feels this is less likely as cellulitis has improved per his account. ID consult noted. Will need a formal TTE to evaluate for vegetations. Repeat blood cultures ordered and pending. Possible element of septic shock which appears to be resolved. Hematologic: Patient with ischemic right lower extremity. Revascularization attempt by vascular surgery 12/09/2023 was unsuccessful. Discussed antiplatelet and anticoagulation with vascular surgeon he does not feel further anticoagulation is necessary at this point as his limb is not salvageable. Plan is for BKA next week progressive surgery. Endocrine: Maintain euglycemia. Pharmacy consult for management of diabetes mellitus. Currently on insulin therapy. Lines and tubes: Choi catheter in place. Right IJ CVL placed 12/09/2023. VTE prophylaxis: SCDs. Will consider VTE prophylaxis later today if no signs of bleeding from incision sites. CODE STATUS: Full Family at bedside: Not available at bedside presently. Disposition: ICU. Care coordinated with bedside RN and ICU pharmacist. Anticipate possible downgrade to PCU status the patient is successfully extubated and remained stable later today. I have personally spent 36 minutes of critical care time in the direct management of this patient. This is a life/limb threatening event. This includes time spent evaluating patient, direct bedside care, chart review, placing orders, interpretation of diagnostic studies, discussion with consultants, patie nt, and family members, as well as other required patient management activities. This time is exclusive of all separately billable procedures, and teaching time and separate from and in addition to any other critical care service time. Thank you for allowing us to participate in the care of this patient. Admission and Anticipated Discharge Date Admission Date: December 07, 2023 Subjective Patient seen and examined. He is on a sedation vacation following commands. Ventilator settings have improved significantly and FiO2 requirements have decreased. Remains on low-dose Levophed which we are weaning off. Otherwise no overnight events. Review of Systems Review of Systems: Unobtainable due to endotracheal tube Physical Exam Physical Exam: Constitutional: Patient appears to be of their stated age. Patient is in no apparent distress. Patient is well-developed. Eyes: Pupils are equal round and reactive to light. Conjunctivae are normal. Anicteric sclera. Ears nose, mouth and throat: Endotracheally intubated. Neck: Trachea is midline. Visual inspection is normal. Respiratory: Clear to auscultation bilaterally. No use of accessory muscles. No significant clubbing noted. Cardiovascular: Regular rate and rhythm. Right lower extremity without distal pulses palpated. Necrotic eschar noted over the right foot. Cellulitic changes noted as well. Gastrointestinal: Normal bowel sounds, soft, nontender and nondistended. No hepatosplenomegaly noted. Musculoskeletal: No cyanosis. Patient is able to move all extremities. Strength is 5 out of 5 in the upper and lower extremities. Skin: No rashes, warm dry and intact. Neurologic: Appears to be neurologically intact. Alert and follows simple commands. Off sedation at this time. Psychiatric: Unable to assess as the patient is currently intubated and sedated. Results & Data Results & Data Vital Signs (Past 12 Hours) Vital Signs Temp Pulse Resp BP Pulse Ox O2 Del Method FiO2 12/10/23 09:01 37.5 C 93 H 18 93 Mechanical Vent 12/10/23 09:00 126/74 12/10/23 08:59 37.5 C 94 H 18 93 Mechanical Vent 12/10/23 08:46 89/58 L 12/10/23 08:45 37.5 C 93 H 18 90 Mechanical Vent 12/10/23 08:30 37.5 C 86 19 94 Mechanical Vent 12/10/23 08:30 127/74 12/10/23 08:16 37.5 C 89 20 95 Mechanical Vent 12/10/23 08:16 117/68 12/10/23 08:01 37.5 C 86 20 94 Mechanical Vent 12/10/23 08:00 150/86 H 12/10/23 07:59 142/85 H 12/10/23 07:58 Mechanical Vent 12/10/23 07:57 37.5 C 84 20 94 Mechanical Vent 12/10/23 07:45 124/76 12/10/23 07:45 37.5 C 85 20 93 Mechanical Vent 12/10/23 07:30 125/72 12/10/23 07:30 37.5 C 91 H 20 93 Mechanical Vent 12/10/23 07:28 37.5 C 90 20 92 Mechanical Vent 12/10/23 07:24 88 20 93 55 12/10/23 07:00 37.5 C 84 20 93 Mechanical Vent 12/10/23 06:45 122/73 12/10/23 06:45 37.5 C 83 20 93 Mechanical Vent 12/10/23 06:30 126/77 12/10/23 06:30 37.4 C 84 19 93 12/10/23 06:15 122/73 12/10/23 06:15 37.4 C 84 20 94 12/10/23 06:01 37.4 C 84 20 95 12/10/23 06:00 114/72 12/10/23 05:59 37.4 C 85 20 94 12/10/23 05:45 37.4 C 83 20 94 12/10/23 05:45 126/76 12/10/23 05:30 120/74 12/10/23 05:30 37.4 C 83 20 94 12/10/23 05:15 127/76 12/10/23 05:12 37.4 C 83 20 94 12/10/23 05:00 122/75 12/10/23 05:00 37.5 C 85 20 93 12/10/23 04:46 37.5 C 86 20 93 12/10/23 04:46 98/65 L 12/10/23 04:30 126/75 12/10/23 04:30 37.5 C 91 H 20 12/10/23 04:00 37.5 C 95 H 20 12/10/23 03:45 37.4 C 86 20 12/10/23 03:45 130/81 12/10/23 03:31 116/76 12/10/23 03:30 37.5 C 88 21 91 12/10/23 03:01 37.6 C H 89 20 94 12/10/23 03:00 100/73 12/10/23 02:59 37.6 C H 90 20 94 12/10/23 02:40 88 20 93 55 12/10/23 02:00 115/73 12/10/23 01:59 37.7 C H 88 20 93 12/10/23 01:00 37.5 C 93 H 20 12/10/23 00:02 37.6 C H 85 20 94 12/10/23 00:00 117/74 12/10/23 00:00 80 12/09/23 23:05 83 20 93 55 Coding Level of Care Code 44583 CRITICAL CARE 1ST 30-74M Diagnoses Acute on chronic respiratory failure with hypoxia J96.21 Respiratory failure complication: hypoxia Endotracheally intubated Z97.8 RVF (right ventricular failure) I50.810 Bacteremia due to Staphylococcus R78.81; B95.8 PAD (peripheral artery disease) I73.9 Septic shock A41.9; R65.21 Ischemic foot I99.8 Time Spent (min) 36 (1) Acute and chronic respiratory failure Respiratory failure complication: hypoxia Qualified Code(s): J96.21 - Acute and chronic respiratory failure with hypoxia
[2023-12-10] MEDS: ALBUTEROL 0.083% NEBU SOLN 3 ML VIAL NEB STA (09:46)
[2023-12-10] MEDS ORDERED: DEXAMETHASONE SOD INJ 4 MG/ML VIAL IV STA (10:07)
[2023-12-10 10:24] LABS: BUN Creatinine Ratio 19.4 (10-20); Calcium 8.3 mg/dl (8.6-10.3); Creatinine Clr Calc Pharmacy 89.5 ml/min; Est GFR (African American) 97.4 ml/min; Est GFR (Non-African American) 84.1 ml/min; Potassium 4.4 mmol/L (3.5-5.1)
[2023-12-10 10:40] LABS: Troponin I High Sensitivity 75.2 pg/ml (0-20)
--- NOTE | 2023-12-10 10:43 | Hospitalist Progress Note ---
Date of Service December 10, 2023 Assessment & Plan (1) Acute and chronic respiratory failure: Plan: He was extubated in the OR but needed to be reintubated due to acute on chronic hypoxic respiratory failure Currently vent dependent Managed by pulmonary, planning to extubate hopefully soon Currently on pressure support Patient has RV dysfunction: POCUS reveals dilated IVC, dilated RV, dilated LA. Chest x-ray shows pulmonary edema Patient was given IV Lasix (2) Septic shock: Plan: Patient has staph bacteremia. Blood culture from 12/06 growing Staphylococcus Source is his foot. There were initial concerns of gas gangrene/necrotizing fasciitis however clinically did not correlate Moreover cellulitis seems to be improving with IV antibiotics Infectious disease on board Currently has been off of pressors for an hour Improving TTE ordered to rule out vegetation Repeat blood cultures ordered 12/07. So far negative On IV clindamycin, IV vancomycin, IV Zosyn per infectious disease recommendation (3) Ischemic foot: Plan: Occluded right popliteal artery Failed attempt of thrombectomy 12/08 Vascular surgery plans on amputation next week Severe peripheral vascular disease (4) Cellulitis of foot, right: Plan: Please see problem #2 Cellulitis improving (5) PAD (peripheral artery disease): Plan: ASA, clopidogrel Rosuvastatin on hold with daptomycin use Failed attempt of thrombectomy 12/08 Will need amputation (6) Type 2 diabetes mellitus: Plan: A1c 8.1 Outpatient on Levemir 60 units BID, Novolog 6 units AC, glyburide Consult pharmacy for glycemic control (7) BETTE (obstructive sleep apnea): Plan: Not on CPAP, on chronic O2 (8) Chronic respiratory failure: Plan: Chronic 4LPM O2 (9) CHF (congestive heart failure): Plan: Patient has CHFpEF Currently euvolemic Furosemide was being held pre-operatively Patient got Lasix today as chest x-ray showed fluid overload (10) Hypertension: Plan: Continue metoprolol succinate Hold lisinopril, furosemide pre operatively (11) Pressure ulcer of right foot, unstageable: (12) Occlusion of right popliteal artery: (13) Bacteremia due to Staphylococcus: Plan: Foot source Infectious disease involved Continue IV antibiotics Plan Left a message on son's phone to update him. Awaiting callback. Admission and Anticipated Discharge Date Admission Date: December 07, 2023 Subjective Patient remains intubated. Off of sedation. Currently on pressure support. Per nurse he has been off of pressors for about an hour. Review of Systems Review of Systems: Unobtainable due to endotracheal tube Physical Exam Physical Exam: General: Intubated. Not sedated. Able to communicate using facial expressions, shakes and nods. Heart: S1, S2/regular rate and rhythm, no murmur rubs or gallops Lungs: Good air entry bilaterally. No adventitious breath sounds heard Abdomen: Soft/nontender/nondistended. No hepatosplenomegaly. Positive bowel sounds Extremities: No clubbing/cyanosis. Cellulitis improved. Ulcer in the dorsum of the foot. Behavior: Unable to assess Results & Data Results & Data Vital Signs (Past 12 Hours) Vital Signs Temp Pulse Pulse Resp BP Pulse Ox O2 Del Method 12/10/23 09:46 107 H 18 97 Mechanical Vent 12/10/23 09:21 100 H 16 96 12/10/23 09:01 37.5 C 93 H 18 93 Mechanical Vent 12/10/23 09:00 126/74 12/10/23 08:59 37.5 C 94 H 18 93 Mechanical Vent 12/10/23 08:46 89/58 L 12/10/23 08:45 37.5 C 93 H 18 90 Mechanical Vent 12/10/23 08:30 37.5 C 86 19 94 Mechanical Vent 12/10/23 08:30 127/74 12/10/23 08:16 37.5 C 89 20 95 Mechanical Vent 12/10/23 08:16 117/68 12/10/23 08:01 37.5 C 86 20 94 Mechanical Vent 12/10/23 08:00 150/86 H 12/10/23 07:59 142/85 H 12/10/23 07:58 Mechanical Vent 12/10/23 07:57 37.5 C 84 20 94 Mechanical Vent 12/10/23 07:45 124/76 12/10/23 07:45 37.5 C 85 20 93 Mechanical Vent 12/10/23 07:30 125/72 12/10/23 07:30 37.5 C 91 H 20 93 Mechanical Vent 12/10/23 07:28 37.5 C 90 20 92 Mechanical Vent 12/10/23 07:24 88 20 93 12/10/23 07:15 84 12/10/23 07:00 37.5 C 84 20 93 Mechanical Vent 12/10/23 06:45 122/73 12/10/23 06:45 37.5 C 83 20 93 Mechanical Vent 12/10/23 06:30 126/77 12/10/23 06:30 37.4 C 84 19 93 12/10/23 06:15 122/73 12/10/23 06:15 37.4 C 84 20 94 12/10/23 06:01 37.4 C 84 20 95 12/10/23 06:00 114/72 12/10/23 05:59 37.4 C 85 20 94 12/10/23 05:45 37.4 C 83 20 94 12/10/23 05:45 126/76 12/10/23 05:30 120/74 12/10/23 05:30 37.4 C 83 20 94 12/10/23 05:15 127/76 12/10/23 05:12 37.4 C 83 20 94 12/10/23 05:00 122/75 12/10/23 05:00 37.5 C 85 20 93 12/10/23 04:46 37.5 C 86 20 93 12/10/23 04:46 98/65 L 12/10/23 04:30 126/75 12/10/23 04:30 37.5 C 91 H 20 12/10/23 04:00 37.5 C 95 H 20 12/10/23 03:45 37.4 C 86 20 12/10/23 03:45 130/81 12/10/23 03:31 116/76 12/10/23 03:30 37.5 C 88 21 91 12/10/23 03:01 37.6 C H 89 20 94 12/10/23 03:00 100/73 12/10/23 02:59 37.6 C H 90 20 94 12/10/23 02:40 88 20 93 12/10/23 02:00 115/73 12/10/23 01:59 37.7 C H 88 20 93 12/10/23 01:00 37.5 C 93 H 20 12/10/23 00:02 37.6 C H 85 20 94 12/10/23 00:00 117/74 12/10/23 00:00 80 12/09/23 23:05 83 20 93 FiO2 12/10/23 09:46 45 12/10/23 09:21 45 12/10/23 09:01 12/10/23 09:00 12/10/23 08:59 12/10/23 08:46 12/10/23 08:45 12/10/23 08:30 12/10/23 08:30 12/10/23 08:16 12/10/23 08:16 12/10/23 08:01 12/10/23 08:00 12/10/23 07:59 12/10/23 07:58 12/10/23 07:57 12/10/23 07:45 12/10/23 07:45 12/10/23 07:30 12/10/23 07:30 12/10/23 07:28 12/10/23 07:24 55 12/10/23 07:15 12/10/23 07:00 12/10/23 06:45 12/10/23 06:45 12/10/23 06:30 12/10/23 06:30 12/10/23 06:15 12/10/23 06:15 12/10/23 06:01 12/10/23 06:00 12/10/23 05:59 12/10/23 05:45 12/10/23 05:45 12/10/23 05:30 12/10/23 05:30 12/10/23 05:15 12/10/23 05:12 12/10/23 05:00 12/10/23 05:00 12/10/23 04:46 12/10/23 04:46 12/10/23 04:30 12/10/23 04:30 12/10/23 04:00 12/10/23 03:45 12/10/23 03:45 12/10/23 03:31 12/10/23 03:30 12/10/23 03:01 12/10/23 03:00 12/10/23 02:59 12/10/23 02:40 55 12/10/23 02:00 12/10/23 01:59 12/10/23 01:00 12/10/23 00:02 12/10/23 00:00 12/10/23 00:00 12/09/23 23:05 55 Laboratory Results Abnormal lab results 12/09/23 12/09/23 12/09/23 Range/Units 09:55 15:55 16:05 WBC 21.22 H (4.8-10.8) K/ul RBC 3.69 L (4.70-6.10) M/uL Hgb 9.6 L (14.0-18.0) g/dl POC Hgb (14.0-18.0) g/dl Hct 32.1 L (42.0-52.0) % POC Hct (42-52) % MCHC 29.9 L (32.0-36.0) g/dL RDW Std Deviation 49.2 H (36.4-46.3) fL RDW Coeff of Larry 15.4 H (11.5-14.5) % Neut # (Auto) 17.19 H (1.40-6.50) K/uL [place] # (Auto) 1.63 H (0.11-0.59) K/uL Heparin Anti-Xa, Unfract 0.13 L (0.3-0.7) IU/ml POC pH (7.35-7.45) POC pCO2 (35-46) mmHg POC pO2 (80-95) mmHg POC HCO3 (19-24) rubia/L POC Total CO2 (24-31) mmol/L POC Base Excess (-9-1.8) rubia/L ABG pH (Temp Correct) (7.35-7.45) ABG pCO2 (Temp Corrct (35-46) mmHg POC ABG O2 Sat (90-95) % POC Sodium (135-144) mmol/L Sodium 133 L (136-145) mmol/L Chloride 96 L (98-107) mmol/L Carbon Dioxide (21-32) mmol/L BUN/Creatinine Ratio 23.9 H (10-20) Glucose 189 H (70-99(Fasting)) mg/dl POC Glucose 174 H (70-99) mg/dl POC Glucose (other) (70-99) mg/dl Calcium 8.3 L (8.6-10.3) mg/dl Troponin I High Sens 119.0 H* (0-20) pg/ml Albumin 3.3 L (3.4-5.0) gm/dl 12/09/23 12/10/23 12/10/23 Range/Units 17:32 00:00 04:42 WBC 17.61 H (4.8-10.8) K/ul RBC 3.68 L (4.70-6.10) M/uL Hgb 9.6 L (14.0-18.0) g/dl POC Hgb 10.5 L (14.0-18.0) g/dl Hct 31.8 L (42.0-52.0) % POC Hct 31 L (42-52) % MCHC 30.2 L (32.0-36.0) g/dL RDW Std Deviation 49.2 H (36.4-46.3) fL RDW Coeff of Larry 15.4 H (11.5-14.5) % Neut # (Auto) 14.83 H (1.40-6.50) K/uL [place] # (Auto) 1.17 H (0.11-0.59) K/uL Heparin Anti-Xa, Unfract (0.3-0.7) IU/ml POC pH 7.29 L (7.35-7.45) POC pCO2 61 H (35-46) mmHg POC pO2 134 H (80-95) mmHg POC HCO3 29 H (19-24) rubia/L POC Total CO2 (24-31) mmol/L POC Base Excess 3.0 H (-9-1.8) rubia/L ABG pH (Temp Correct) 7.297 L (7.35-7.45) ABG pCO2 (Temp Corrct 59 H (35-46) mmHg POC ABG O2 Sat 99.0 H (90-95) % POC Sodium 132 L (135-144) mmol/L Sodium 133 L (136-145) mmol/L Chloride 95 L (98-107) mmol/L Carbon Dioxide (21-32) mmol/L BUN/Creatinine Ratio 20.7 H (10-20) Glucose 234 H (70-99(Fasting)) mg/dl POC Glucose (70-99) mg/dl POC Glucose (other) 234 H (70-99) mg/dl Calcium 8.4 L (8.6-10.3) mg/dl Troponin I High Sens (0-20) pg/ml Albumin (3.4-5.0) gm/dl 12/10/23 12/10/23 Range/Units 05:12 09:41 WBC (4.8-10.8) K/ul RBC (4.70-6.10) M/uL Hgb (14.0-18.0) g/dl POC Hgb 10.5 L (14.0-18.0) g/dl Hct (42.0-52.0) % POC Hct 31 L (42-52) % MCHC (32.0-36.0) g/dL RDW Std Deviation (36.4-46.3) fL RDW Coeff of Larry (11.5-14.5) % Neut # (Auto) (1.40-6.50) K/uL [place] # (Auto) (0.11-0.59) K/uL Heparin Anti-Xa, Unfract (0.3-0.7) IU/ml POC pH (7.35-7.45) POC pCO2 50 H (35-46) mmHg POC pO2 67 L (80-95) mmHg POC HCO3 31 H (19-24) rubia/L POC Total CO2 32 H (24-31) mmol/L POC Base Excess 6.0 H (-9-1.8) rubia/L ABG pH (Temp Correct) (7.35-7.45) ABG pCO2 (Temp Corrct 51 H (35-46) mmHg POC ABG O2 Sat (90-95) % POC Sodium 132 L (135-144) mmol/L Sodium 134 L (136-145) mmol/L Chloride 96 L (98-107) mmol/L Carbon Dioxide 33 H (21-32) mmol/L BUN/Creatinine Ratio (10-20) Glucose 218 H (70-99(Fasting)) mg/dl POC Glucose (70-99) mg/dl POC Glucose (other) (70-99) mg/dl Calcium 8.3 L (8.6-10.3) mg/dl Troponin I High Sens 75.2 H* D (0-20) pg/ml Albumin (3.4-5.0) gm/dl Diagnostic Findings Chest X-Ray 12/09/23 15:28 XR chest 1V portable HISTORY: 68 years-old Male s/p intubation acute respiratory failure COMPARISON: 12/07/2023 TECHNIQUE: AP view of the chest FINDINGS: Cardiac silhouette is enlarged. Endotracheal tube overlies midline, 3 cm superior to the sobia. Pulmonary vascular congestion with only progressed interstitial coarsening. No pneumothorax. Probable small pleural effusions. Unchanged right basilar atelectasis versus scarring. Degenerative changes of the shoulders and spine. IMPRESSION: 1. Endotracheal tube terminates 3 cm superior to the sobia. 2. Cardiomegaly with suggestion of pulmonary edema. 3. Probable small pleural effusions with left greater than right bibasilar opacities. ACT 112: Negative or not required by law. The above report was generated using voice recognition software. It may contain grammatical, syntax or spelling errors. Electronically signed by: Jas Ruiz M.D. 12/09/2023 4:01 PM Chest X-Ray 12/09/23 16:56 SINGLE VIEW CHEST CLINICAL HISTORY: Central venous catheter placement. FINDINGS: 2 AP, portable, upright chest radiographs are compared to study dated 12/09/2023 and correlated with chest CT dated 01/12/2023. The examination is degraded by portable technique and patient rotation. Endotracheal and enteric tubes are unchanged in position. A right internal jugular central venous catheter has been placed. The tip of the catheter projects over the right atrium. The heart is enlarged noting atherosclerotic calcification of the thoracic aorta. There is pulmonary vascular congestion with evidence of interstitial edema. There are small pleural effusions. No pneumothorax is seen. The skeletal structures are osteopenic. The bony thorax is grossly intact. IMPRESSION: 1. A right internal jugular central venous catheter has been placed as above. No pneumothorax is identified post procedure. 2. The remaining lines and tubes are unchanged. 3. Cardiomegaly with evidence of congestive failure and pulmonary edema. This is similar to today's earlier examination. 4. Small pleural effusions. ACT 112: Negative or not required by law. Electronically signed by: Herson Lopez M.D. 12/09/2023 5:27 PM PG Care Time/CCT Total # of Minutes Spent Total Time Spent with Patient: Total time spent is greater than 50% in coordination of care (as documented) at patient's floor/unit and/or counseling patient: Coding Level of Care Code 49031 SUB INP/OBS CARE 2/35MIN Diagnoses Acute on chronic respiratory failure with hypoxia J96.21 Respiratory failure complication: hypoxia Septic shock A41.9; R65.21 Ischemic foot I99.8 Cellulitis of foot, right L03.115 PAD (peripheral artery disease) I73.9 Type 2 diabetes mellitus E11.9 BETTE (obstructive sleep apnea) G47.33 Chronic respiratory failure J96.10 CHF (congestive heart failure) I50.9 Hypertension I10 Pressure ulcer of right foot, unstageable L89.890 Occlusion of right popliteal artery I70.201 Bacteremia due to Staphylococcus R78.81; B95.8 (1) Acute and chronic respiratory failure Respiratory failure complication: hypoxia Qualified Code(s): J96.21 - Acute and chronic respiratory failure with hypoxia
[2023-12-10] MEDS: dexAMETHasone 6 MG in SYRINGE 0 ML IV STA (10:51)
--- NOTE | 2023-12-10 11:22 | XCELERA ---
[id number] \\[id number]
[2023-12-10] MEDS: ACETAMINOPHEN 1,000 MG/100 ML VIAL IV PRN (11:23)
[2023-12-11 08:13] LABS: Hematocrit (blood only) 29.6 % (42.0-52.0); Hemoglobin 8.9 g/dl (14.0-18.0); Mean Corpuscular Hemoglobin 26.3 pg (25.0-34.0); Mean Corpuscular Hgb Conc 30.1 g/dL (32.0-36.0); Mean Corpuscular Volume 87.6 fL (80.0-100.0); Mean Platelet Volume 10.3 fL (9.4-12.4); Platelet Count 333 K/uL (130-400); RDW Coefficient of Variation 15.4 % (11.5-14.5); RDW Standard Deviation 49.4 fL (36.4-46.3); Red Blood Count 3.38 M/uL (4.70-6.10); White Blood Count 15.74 K/ul (4.8-10.8)
[2023-12-11 08:26] LABS: BUN Creatinine Ratio 23.6 (10-20); Calcium 8.1 mg/dl (8.6-10.3); Creatinine Clr Calc Pharmacy 94.2 ml/min; Est GFR (African American) 101.8 ml/min; Est GFR (Non-African American) 87.9 ml/min
--- NOTE | 2023-12-11 15:19 | Hospitalist Progress Note ---
Date of Service December 11, 2023 Assessment & Plan (1) Acute and chronic respiratory failure: Plan: He was extubated in the OR 12/08, extubated 12/09. Patient has RV dysfunction: POCUS reveals dilated IVC, dilated RV, dilated LA. Chest x-ray showed pulmonary edema Patient was given IV Lasix (2) Septic shock: Plan: Patient has staph bacteremia. Blood culture from 12/06 growing Staphylococcus Source is his foot. Shock is resolved Not on pressors anymore There were initial concerns of gas gangrene/necrotizing fasciitis however clinically did not correlate Moreover cellulitis seems to be improving with IV antibiotics Infectious disease on board Improving TTE ruled out vegetation Repeat blood cultures ordered 12/07. So far negative for 48 hours On IV clindamycin, IV vancomycin, IV Zosyn per infectious disease recommendation (3) Ischemic foot: Plan: Occluded right popliteal artery Failed attempt of thrombectomy 12/08 Vascular surgery plans on amputation next week Severe peripheral vascular disease (4) Cellulitis of foot, right: Plan: Please see problem #2 Cellulitis improving (5) PAD (peripheral artery disease): Plan: ASA, clopidogrel Rosuvastatin on hold with daptomycin use Failed attempt of thrombectomy 12/08 Will need amputation (6) Type 2 diabetes mellitus: Plan: A1c 8.1 Outpatient on Levemir 60 units BID, Novolog 6 units AC, glyburide Consult pharmacy for glycemic control (7) BETTE (obstructive sleep apnea): Plan: Not on CPAP, on chronic O2 (8) Chronic respiratory failure: Plan: Chronic 4LPM O2 (9) CHF (congestive heart failure): Plan: Patient has CHFpEF Currently euvolemic Furosemide was being held pre-operatively Patient got Lasix on 12/09 as chest x-ray showed fluid overload (10) Hypertension: Plan: Continue metoprolol succinate Hold lisinopril, furosemide pre operatively (11) Pressure ulcer of right foot, unstageable: (12) Occlusion of right popliteal artery: (13) Bacteremia due to Staphylococcus: Plan: Foot source Infectious disease involved Continue IV antibiotics Admission and Anticipated Discharge Date Admission Date: December 07, 2023 Subjective Patient was extubated 12/09! Off of pressors. Out of the ICU. He is feeling well today. Denies any chest pain, shortness of breath. He is waiting for the next step with his right foot: Amputation Review of Systems Review of Systems: All systems reviewed & are unremarkable except as noted in Subjective Physical Exam Physical Exam: General: Awake, conversant. Heart: S1, S2/regular rate and rhythm, no murmur rubs or gallops Lungs: Good air entry bilaterally. No adventitious breath sounds heard Abdomen: Soft/nontender/nondistended. No hepatosplenomegaly. Positive bowel sounds Extremities: No clubbing/cyanosis. Cellulitis improved. Ulcer in the dorsum of the foot. Behavior: Unable to assess Results & Data Results & Data Vital Signs (Past 12 Hours) Vital Signs Temp Pulse Pulse Resp BP BP Pulse Ox 12/11/23 11:30 37.2 C 90 19 148/79 H 94 12/11/23 08:00 12/11/23 06:55 36.4 C L 85 18 116/71 96 12/11/23 03:53 85 O2 Del Method O2 Flow Rate 12/11/23 11:30 Room Air 12/11/23 08:00 Nasal Cannula 3.5 12/11/23 06:55 Nasal Cannula 3.5 12/11/23 03:53 Laboratory Results Abnormal lab results 12/08/23 12/10/23 12/10/23 Range/Units 14:14 18:22 20:36 WBC (4.8-10.8) K/ul RBC (4.70-6.10) M/uL Hgb (14.0-18.0) g/dl Hct (42.0-52.0) % MCHC (32.0-36.0) g/dL RDW Std Deviation (36.4-46.3) fL RDW Coeff of Larry (11.5-14.5) % Sodium (136-145) mmol/L Chloride (98-107) mmol/L Carbon Dioxide (21-32) mmol/L BUN/Creatinine Ratio (10-20) Glucose (70-99(Fasting)) mg/dl POC Glucose 201 H 155 H (70-99) mg/dl Calcium (8.6-10.3) mg/dl Crossmatch See Detail 12/11/23 12/11/23 12/11/23 Range/Units 07:27 08:03 11:48 WBC 15.74 H (4.8-10.8) K/ul RBC 3.38 L (4.70-6.10) M/uL Hgb 8.9 L (14.0-18.0) g/dl Hct 29.6 L (42.0-52.0) % MCHC 30.1 L (32.0-36.0) g/dL RDW Std Deviation 49.4 H (36.4-46.3) fL RDW Coeff of Larry 15.4 H (11.5-14.5) % Sodium 135 L (136-145) mmol/L Chloride 97 L (98-107) mmol/L Carbon Dioxide 33 H (21-32) mmol/L BUN/Creatinine Ratio 23.6 H (10-20) Glucose 120 H (70-99(Fasting)) mg/dl POC Glucose 116 H 139 H (70-99) mg/dl Calcium 8.1 L (8.6-10.3) mg/dl Crossmatch PG Care Time/CCT Total # of Minutes Spent Total Time Spent with Patient: Total time spent is greater than 50% in coordination of care (as documented) at patient's floor/unit and/or counseling patient: Coding Level of Care Code 89333 SUB INP/OBS CARE 2/35MIN Diagnoses Acute on chronic respiratory failure with hypoxia J96.21 Respiratory failure complication: hypoxia Septic shock A41.9; R65.21 Ischemic foot I99.8 Cellulitis of foot, right L03.115 PAD (peripheral artery disease) I73.9 Type 2 diabetes mellitus E11.9 BETTE (obstructive sleep apnea) G47.33 Chronic respiratory failure J96.10 CHF (congestive heart failure) I50.9 Hypertension I10 Pressure ulcer of right foot, unstageable L89.890 Occlusion of right popliteal artery I70.201 Bacteremia due to Staphylococcus R78.81; B95.8 (1) Acute and chronic respiratory failure Respiratory failure complication: hypoxia Qualified Code(s): J96.21 - Acute and chronic respiratory failure with hypoxia
--- NOTE | 2023-12-11 19:09 | Electrocardiogram Report ---
Test Reason : Blood Pressure : / mmHG Vent. Rate : 124 BPM Atrial Rate : 124 BPM P-R Int : 160 ms QRS Dur : 150 ms QT Int : 308 ms P-R-T Axes : 043 161 018 degrees QTc Int : 442 ms Sinus tachycardia Right bundle branch block Septal infarct (cited on or before 02-APR-2021) Abnormal ECG When compared with ECG of 12-JAN-2023 11:10, Questionable change in QRS axis Confirmed by Alex Suazo ([id number]) on 12/11/2023 7:09:02 PM Referred By: Confirmed By:Alex Suazo
--- NOTE | 2023-12-11 21:59 | Electrocardiogram Report ---
Test Reason : Blood Pressure : / mmHG Vent. Rate : 082 BPM Atrial Rate : 082 BPM P-R Int : 194 ms QRS Dur : 164 ms QT Int : 398 ms P-R-T Axes : 044 -22 -17 degrees QTc Int : 464 ms Normal sinus rhythm Right bundle branch block Abnormal ECG When compared with ECG of 07-DEC-2023 15:08, (unconfirmed) Vent. rate has decreased BY 42 BPM Questionable change in QRS axis Criteria for Septal infarct are no longer Present Confirmed by Alex Suazo ([id number]) on 12/11/2023 9:59:24 PM Referred By: REFERRED SELF Confirmed By:Alex Suazo
[2023-12-11] MEDS: LANTUS PER UNIT CHARGE SC ONE (22:32)
[2023-12-12] MEDS: INSULIN ASPART PER UNIT CHARGE SC SCH ×3 (00:42→12:33)
[2023-12-12 06:06] LABS: Hematocrit (blood only) 33.2 % (42.0-52.0); Hemoglobin 10.1 g/dl (14.0-18.0); Mean Corpuscular Hemoglobin 26.7 pg (25.0-34.0); Mean Corpuscular Hgb Conc 30.4 g/dL (32.0-36.0); Mean Corpuscular Volume 87.8 fL (80.0-100.0); Mean Platelet Volume 10.2 fL (9.4-12.4); Platelet Count 365 K/uL (130-400); RDW Coefficient of Variation 15.6 % (11.5-14.5); RDW Standard Deviation 50.1 fL (36.4-46.3); Red Blood Count 3.78 M/uL (4.70-6.10); White Blood Count 15.87 K/ul (4.8-10.8)
[2023-12-12 06:26] LABS: Calcium 8.6 mg/dl (8.6-10.3); Creatinine Clr Calc Pharmacy 91.1 ml/min; Est GFR (African American) 98.7 ml/min; Est GFR (Non-African American) 85.2 ml/min; Potassium 4.5 mmol/L (3.5-5.1)
[2023-12-12] MEDS ORDERED: INSULIN ASPART PER UNIT CHARGE SC SCH (07:30)
--- NOTE | 2023-12-12 08:48 | Surgery Progress Note ---
Date of Service December 12, 2023 Assessment & Plan (1) Ischemic foot: Plan: Pt with ischemic RLE, and failed attempt at open thrombectomy. Angio demonstrated no distal bypass targets for outflow. Foot is ischemic and appears necrotic. After discussion with Dr Candelaria, recommends pt undergo RLE BKA vs AKA in OR later this week. Pt agreeable. Admission and Anticipated Discharge Date Admission Date: December 07, 2023 Subjective 68 yo m POD #3 after failed open thrombectomy of RLE, seen in f/u today. Pt states occasional pain in R foot. Second blood cx negative. WBC remains elevated at 15, however, VS have stabilized. Review of Systems Review of Systems: All systems reviewed & are unremarkable except as noted in HPI & below Physical Exam Constitutional: WD/WN, vitals as above + ill appearing and cooperative; not in distress ENMT: Ears: + hearing impairment Neck: trachea midline Cardiovascular: Vessels: femoral pulses present, posterior tibial pulses present (+ LLE, no pulse RLE) and dorsalis pedis pulses present (+ LLE, no pulse RLE) Extremities: normal capillary refill (LLE normal, RLE no cap refill) Skin: R foot with multiple eschars dorsal and lateral, mild erythema, pallor forefoot to toes. No cap refill in toes. Psychiatric: A+Ox3, euthymic affect Results & Data Vital Signs (Past 12 Hours) Vital Signs Temp Pulse Pulse Resp BP Pulse Ox O2 Del Method 12/12/23 07:01 36.4 C L 90 19 152/85 H 92 Nasal Cannula 12/12/23 03:25 36.6 C 74 17 128/74 97 Nasal Cannula 12/11/23 22:55 37.1 C 86 17 117/67 94 Nasal Cannula 12/11/23 22:29 86 12/11/23 21:30 Nasal Cannula O2 Flow Rate 12/12/23 07:01 4 12/12/23 03:25 4 12/11/23 22:55 4 12/11/23 22:29 12/11/23 21:30 3.5
[2023-12-12] MEDS: LANTUS PER UNIT CHARGE SC ONE (08:59)
[2023-12-12] MEDS ORDERED: Nursing to Pharmacy Communication SCH (09:45)
--- NOTE | 2023-12-12 13:43 | Infectious Disease Progress Nt ---
Date of Service December 12, 2023 Assessment & Plan (1) Septic shock: (2) Endotracheally intubated: (3) Bacteremia due to Staphylococcus: (4) Pressure ulcer of right foot, unstageable: Plan 68 yo M with h/o PVD, CKD, COPD, DM, s/p right 5th toe amputation who was admitted on 12/06 with poor blood flow to right foot. Found to have concurrent cellulitis and bacteremia which ID consulted. Per patient and EMR, he was seen at wound care clinic d/t poor foot flow to right. Patient has a h/o PVD and underwent stenting previously. He has had I+D of Right foot in past and 5th digit amputation. He developed 2 ulcers in his leg. He underwent angioplasty w/ stenting of right popliteal artery and percutaneous transluminal angioplasty of proximal right superficial femoral artery on 10/27/23. His foot appeared to be healing but recently redness and pains started. Was not on antibiotics prior to admission. On admission 12/06, WBC 19, Cr 1.5 CTA proximal to mid right popliteal artery is occluded which includes the popliteal artery stent, high-grade stenosis within the distal popliteal artery, severe stenosis within a short segment of the mid posterior tibial artery. Imaging also noted Focal irregularity of the skin surface within the dorsum of the midfoot which may represent a skin ulceration or small laceration. There is a small amount of subcutaneous gas tracking superiorly along the anterior aspect of the mid to distal right lower leg. This is likely related to the skin ulceration/injury at the midfoot. A gas-forming organism is not excluded. No loculated fluid collections to suggest an abscess. Patient was started on daptomycin, clindamycin and Zosyn He was doing well. Patient went to OR 12/08 for Right lower extremity diagnostic angiogram, RLE open thrombectomy of SFA and popliteal artery Attempted revascularization of the right lower extremity which was unsuccessful. Post op he was extubated but immediately intubated again, patient hypotensive, TF to ICU on pressors. Suspicious of cardiac v pulm event at the time. Angio demonstrated no distal bypass targets for outflow. Per surgery "Foot is ischemic and appears necrotic" . Plan is to undergo RLE BKA vs AKA i later this week. CONS in blood cx Microbiology: Blood cultures 12/07/202309/11 bottles coag negative staph, not lugdunensis Blood cultures 12/08/2023 no growth to date sputum cultures 12/10/2023, rare yeast not Kristal albicans Antibiotics Vancomycin 12/06 Daptomycin 12/06ongoing Clindamycin 12/06ongoing Zosyn 12/06ongoing #Septic shock #Resp failure intubated 12/08 #Severe PVD Recommendations: -Continue IV Zosyn, Daptomycin and Clindamycin pending OR -Follow up final surgical plans RLE BKA vs AKA in OR -Follow up repeat blood cultures Megan Mclaughlin MD, MPH Infectious Disease [facility] Call [phone] with questions Admission and Anticipated Discharge Date Admission Date: December 07, 2023 Subjective This patient recommendation is based on a telemedicine consult request which was completed asynchronously through chart review and information provided by the komal physician. The patient was not seen or examined today. The evaluation is consultative in nature and all patient care and treatment decisions can either be accepted or rejected by the patient's primary hospital-based treating physician using their own independent medical judgment for their patient. Time Spent Reviewing Chart: 21 - 30 minutes Afebrile WBc 15.87, cr 0.92 Results & Data Vital Signs (Past 12 Hours) Vital Signs Temp Pulse Resp BP BP Pulse Ox O2 Del Method 12/12/23 12:20 36.8 C 79 18 129/76 97 Room Air 12/12/23 08:00 Nasal Cannula 12/12/23 07:01 36.4 C L 90 19 152/85 H 92 Nasal Cannula 12/12/23 03:25 36.6 C 74 17 128/74 97 Nasal Cannula O2 Flow Rate 12/12/23 12:20 12/12/23 08:00 3.5 12/12/23 07:01 4 12/12/23 03:25 4 Laboratory Results Short CBC 12/12/23 Range/Units 05:43 WBC 15.87 H (4.8-10.8) K/ul Hgb 10.1 L (14.0-18.0) g/dl Hct 33.2 L (42.0-52.0) % Plt Count 365 (130-400) K/uL BMP 12/12/23 05:43 Sodium 136 Potassium 4.5 Chloride 98 Carbon Dioxide 33 H BUN 23 Creatinine 0.92 Glucose 91 Calcium 8.6 Microbiology 12/10/23 09:32 Sputum,Vent Suction Gram Stain - Final 12/10/23 09:32 Sputum,Vent Suction Sputum Culture - Final Yeast not Kristal albicans/dub 12/07/23 16:53 Blood Aerobic Blood Culture - Preliminary No growth in Aerobic bottle after 48 hours. 12/07/23 16:53 Blood Anaerobic Blood Culture - Preliminary Coag neg staph not lugdunensis 12/07/23 16:50 Blood Aerobic Blood Culture - Preliminary No growth in Aerobic bottle after 48 hours. 12/07/23 16:50 Blood Anaerobic Blood Culture - Preliminary Coag neg staph not lugdunensis 12/08/23 20:36 Blood Aerobic Blood Culture - Preliminary No growth in Aerobic bottle after 48 hours. 12/08/23 20:36 Blood Anaerobic Blood Culture - Final 12/08/23 20:23 Blood Aerobic Blood Culture - Preliminary No growth in Aerobic bottle after 48 hours. 12/08/23 20:23 Blood Anaerobic Blood Culture - Preliminary No growth in Anaerobic bottle after 48 hours. Diagnostic Findings Chest X-Ray 12/09/23 15:28 XR chest 1V portable HISTORY: 68 years-old Male s/p intubation acute respiratory failure COMPARISON: 12/07/2023 TECHNIQUE: AP view of the chest FINDINGS: Cardiac silhouette is enlarged. Endotracheal tube overlies midline, 3 cm superior to the sobia. Pulmonary vascular congestion with only progressed interstitial coarsening. No pneumothorax. Probable small pleural effusions. Unchanged right basilar atelectasis versus scarring. Degenerative changes of the shoulders and spine. IMPRESSION: 1. Endotracheal tube terminates 3 cm superior to the sobia. 2. Cardiomegaly with suggestion of pulmonary edema. 3. Probable small pleural effusions with left greater than right bibasilar opacities. ACT 112: Negative or not required by law. The above report was generated using voice recognition software. It may contain grammatical, syntax or spelling errors. Electronically signed by: Jas Ruiz M.D. 12/09/2023 4:01 PM Chest X-Ray 12/09/23 16:56 SINGLE VIEW CHEST CLINICAL HISTORY: Central venous catheter placement. FINDINGS: 2 AP, portable, upright chest radiographs are compared to study dated 12/09/2023 and correlated with chest CT dated 01/12/2023. The examination is degraded by portable technique and patient rotation. Endotracheal and enteric tubes are unchanged in position. A right internal jugular central venous catheter has been placed. The tip of the catheter projects over the right atrium. The heart is enlarged noting atherosclerotic calcification of the thoracic aorta. There is pulmonary vascular congestion with evidence of interstitial edema. There are small pleural effusions. No pneumothorax is seen. The skeletal structures are osteopenic. The bony thorax is grossly intact. IMPRESSION: 1. A right internal jugular central venous catheter has been placed as above. No pneumothorax is identified post procedure. 2. The remaining lines and tubes are unchanged. 3. Cardiomegaly with evidence of congestive failure and pulmonary edema. This is similar to today's earlier examination. 4. Small pleural effusions. ACT 112: Negative or not required by law. Electronically signed by: Herson Lopez M.D. 12/09/2023 5:27 PM Medications Administered Home Medications Medication Instructions Recorded Confirmed Last Taken aspirin 81 mg tablet,delayed 81 mg PO QAM 04/02/21 10/27/23 10/27/23 08:00 release furosemide 40 mg tablet 40 mg PO QAM 04/02/21 10/27/23 10/27/23 08:00 glyburide 5 mg tablet 5 mg PO BID 04/02/21 10/27/23 10/26/23 20:00 insulin aspart U-100 100 unit/mL 6 unit subcut AC 04/02/21 10/27/23 01/11/23 (3 mL) subcutaneous pen (Novolog FlexPen U-100 Insulin aspart) insulin detemir U-100 100 unit/mL 80 unit subcut BID 04/02/21 10/27/23 10/27/23 08:00 (3 mL) subcutaneous pen (Levemir FlexTouch U-100 Insulin) lisinopril 30 mg tablet 30 mg PO QAM 04/02/21 10/27/23 10/27/23 08:00 metformin 1,000 mg tablet 1,000 mg PO BID 04/02/21 10/27/23 10/25/23 20:00 metoprolol succinate 50 mg 50 mg PO QAM 04/02/21 10/27/23 10/27/23 08:00 tablet,extended release 24 hr nitroglycerin 0.4 mg sublingual 0.4 mg buccal DIRECTED PRN 04/02/21 10/27/23 Unknown tablet Chest Pain rosuvastatin 10 mg tablet (Crestor) 10 mg PO DAILY 04/02/21 10/27/23 10/27/23 08:00 cefprozil 250 mg tablet 0 mg TID 01/12/23 10/27/23 01/12/23 clopidogrel 75 mg tablet 75 mg PO DAILY 01/12/23 10/27/23 10/27/23 08:00 cyclobenzaprine 5 mg tablet 5 mg PO TID 01/12/23 10/27/23 10/26/23 20:00 metronidazole 500 mg tablet 500 mg PO TID 01/12/23 10/27/23 01/12/23 nortriptyline 25 mg capsule 0 mg PO DAILY 01/12/23 10/27/23 10/26/23 20:00 pantoprazole 40 mg tablet,delayed 40 mg PO DAILY 01/12/23 10/27/23 10/27/23 08:00 release (Protonix) Active Medications Generic Name Dose Route Start Last Admin Trade Name Opal PRN Reason Stop Dose Admin Acetaminophen 1,000 mg 12/07/23 21:00 12/12/23 07:59 Acetaminophen 500 Mg Tab PO 01/06/24 20:59 1,000 mg TID WENDY Administration Aspirin 81 mg 12/08/23 09:00 12/12/23 07:33 Aspirin 81 Mg Ectab PO 01/07/24 08:59 81 mg QAM WENDY Administration Piperacillin Sod/Tazobactam 100 mls @ 25 mls/hr 12/07/23 22:00 12/12/23 08:55 Sod 4.5 gm/ Dextrose IV 12/14/23 21:59 Infused Q8H WENDY Infusion Protocol Clindamycin Phosphate 900 mg in 50 mls @ 100 mls/hr 12/07/23 22:00 12/12/23 13:06 Cleocin/D5w IV 12/14/23 21:59 100 mls/hr Q8H WENDY Administration Daptomycin 500 mg/ Syringe 10 mls @ 5 mls/min 12/09/23 22:00 12/11/23 21:22 IV 12/21/23 21:59 5 mls/min Q24H WENDY Administration Protocol Insulin Aspart 0 units 12/12/23 11:30 12/12/23 12:33 Insulin Aspart Per Unit Charge SC 01/11/24 05:59 4 units ACHS WENDY Administration Protocol Metoprolol Succinate 50 mg 12/08/23 09:00 12/12/23 07:33 Metoprolol Succ 50mg Ext Rel Tab PO 01/07/24 08:59 50 mg QAM WENDY Administration Nortriptyline HCl 25 mg 12/07/23 22:00 12/11/23 21:23 Nortriptyline Hcl 25 Mg Cap PO 01/06/24 21:59 25 mg HS WENDY Administration Oxycodone HCl 5 mg 12/07/23 20:54 12/12/23 12:33 Oxycodone Hcl Ir 5 Mg Tab (Immediate Release) PO 12/21/23 20:53 5 mg Q4H PRN Administration MODERATE Pain (4,5,6) & Pre PT Pantoprazole Sodium 40 mg 12/08/23 09:00 12/12/23 07:33 Pantoprazole 40 Mg Tab PO 01/07/24 08:59 40 mg DAILY WENDY Administration
--- NOTE | 2023-12-12 16:24 | Hospitalist Progress Note ---
Date of Service December 12, 2023 Assessment & Plan (1) Acute and chronic respiratory failure: Plan: He was extubated in the OR 12/08, extubated 12/09. Patient has RV dysfunction: POCUS reveals dilated IVC, dilated RV, dilated LA. Chest x-ray showed pulmonary edema Patient was given IV Lasix Resolved Now saturating 97% on 3L (2) Septic shock: Plan: Patient has staph bacteremia. Blood culture from 12/06 growing Staphylococcus Source is his foot. Shock is resolved Not on pressors anymore There were initial concerns of gas gangrene/necrotizing fasciitis however clinically did not correlate Moreover cellulitis seems to be improving with IV antibiotics Infectious disease on board Improving TTE ruled out vegetation Repeat blood cultures ordered 12/07. So far negative for 48 hours On IV clindamycin, IV vancomycin, IV Zosyn per infectious disease recommendation (3) Ischemic foot: Plan: Occluded right popliteal artery Failed attempt of thrombectomy 12/08 Vascular surgery plans on amputation later this week Severe peripheral vascular disease (4) Cellulitis of foot, right: Plan: Please see problem #2 Cellulitis improving (5) PAD (peripheral artery disease): Plan: ASA, clopidogrel Rosuvastatin on hold with daptomycin use Failed attempt of thrombectomy 12/08 Will need amputation (6) Type 2 diabetes mellitus: Plan: A1c 8.1 Outpatient on Levemir 60 units BID, Novolog 6 units AC, glyburide Consult pharmacy for glycemic control (7) BETTE (obstructive sleep apnea): Plan: Not on CPAP, on chronic O2 (8) Chronic respiratory failure: Plan: Chronic 4LPM O2 (9) CHF (congestive heart failure): Plan: Patient has CHFpEF Currently euvolemic Furosemide was being held pre-operatively Patient got Lasix on 12/09 as chest x-ray showed fluid overload (10) Hypertension: Plan: Continue metoprolol succinate Hold lisinopril, furosemide pre operatively (11) Pressure ulcer of right foot, unstageable: (12) Occlusion of right popliteal artery: (13) Bacteremia due to Staphylococcus: Plan: Foot source Infectious disease involved Continue IV antibiotics Admission and Anticipated Discharge Date Admission Date: December 07, 2023 Subjective Patient continues to feel well. Reports no significant pain in the right foot. Denies chest pain or shortness of breath. Waiting for amputation later in the week. Review of Systems Review of Systems: All systems reviewed & are unremarkable except as noted in Subjective Physical Exam Physical Exam: General: Awake, conversant. Heart: S1, S2/regular rate and rhythm, no murmur rubs or gallops Lungs: Good air entry bilaterally. No adventitious breath sounds heard Abdomen: Soft/nontender/nondistended. No hepatosplenomegaly. Positive bowel sounds Extremities: No clubbing/cyanosis. Cellulitis improved. Ulcer in the dorsum of the foot. Behavior: Unable to assess Results & Data Results & Data Vital Signs (Past 12 Hours) Vital Signs Temp Pulse Pulse Resp BP BP Pulse Ox 12/12/23 16:20 36.4 C L 73 18 103/52 L 97 12/12/23 15:28 75 12/12/23 12:20 36.8 C 79 18 129/76 97 12/12/23 08:00 12/12/23 07:01 36.4 C L 90 19 152/85 H 92 O2 Del Method O2 Flow Rate 12/12/23 16:20 Nasal Cannula 3 12/12/23 15:28 12/12/23 12:20 Room Air 12/12/23 08:00 Nasal Cannula 3.5 12/12/23 07:01 Nasal Cannula 4 Laboratory Results Abnormal lab results 12/11/23 12/11/23 12/12/23 Range/Units 17:03 21:14 05:43 WBC 15.87 H (4.8-10.8) K/ul RBC 3.78 L (4.70-6.10) M/uL Hgb 10.1 L (14.0-18.0) g/dl Hct 33.2 L (42.0-52.0) % MCHC 30.4 L (32.0-36.0) g/dL RDW Std Deviation 50.1 H (36.4-46.3) fL RDW Coeff of Larry 15.6 H (11.5-14.5) % Carbon Dioxide 33 H (21-32) mmol/L BUN/Creatinine Ratio 25.0 H (10-20) POC Glucose 131 H 100 H (70-99) mg/dl 12/12/23 Range/Units 11:58 WBC (4.8-10.8) K/ul RBC (4.70-6.10) M/uL Hgb (14.0-18.0) g/dl Hct (42.0-52.0) % MCHC (32.0-36.0) g/dL RDW Std Deviation (36.4-46.3) fL RDW Coeff of Larry (11.5-14.5) % Carbon Dioxide (21-32) mmol/L BUN/Creatinine Ratio (10-20) POC Glucose 125 H (70-99) mg/dl PG Care Time/CCT Total # of Minutes Spent Total Time Spent with Patient: Total time spent is greater than 50% in coordination of care (as documented) at patient's floor/unit and/or counseling patient: Coding Level of Care Code 46793 SUB INP/OBS CARE 235MIN Diagnoses Acute on chronic respiratory failure with hypoxia J96.21 Respiratory failure complication: hypoxia Septic shock A41.9; R65.21 Ischemic foot I99.8 Cellulitis of foot, right L03.115 PAD (peripheral artery disease) I73.9 Type 2 diabetes mellitus E11.9 BETTE (obstructive sleep apnea) G47.33 Chronic respiratory failure J96.10 CHF (congestive heart failure) I50.9 Hypertension I10 Pressure ulcer of right foot, unstageable L89.890 Occlusion of right popliteal artery I70.201 Bacteremia due to Staphylococcus R78.81; B95.8 (1) Acute and chronic respiratory failure Respiratory failure complication: hypoxia Qualified Code(s): J96.21 - Acute and chronic respiratory failure with hypoxia
[2023-12-12] MEDS: LANTUS PER UNIT CHARGE SC SCH (21:24)
[2023-12-13 06:30] LABS: Hematocrit (blood only) 33.5 % (42.0-52.0); Hemoglobin 10.1 g/dl (14.0-18.0); Mean Corpuscular Hemoglobin 26.2 pg (25.0-34.0); Mean Corpuscular Hgb Conc 30.1 g/dL (32.0-36.0); Mean Platelet Volume 9.9 fL (9.4-12.4); Platelet Count 393 K/uL (130-400); RDW Coefficient of Variation 15.4 % (11.5-14.5); RDW Standard Deviation 48.7 fL (36.4-46.3); Red Blood Count 3.85 M/uL (4.70-6.10); White Blood Count 17.02 K/ul (4.8-10.8)
[2023-12-13 06:48] LABS: Calcium 8.6 mg/dl (8.6-10.3); Creatinine Clr Calc Pharmacy 95.5 ml/min; Est GFR (African American) 102.3 ml/min; Est GFR (Non-African American) 88.3 ml/min; Potassium 4.2 mmol/L (3.5-5.1)
--- NOTE | 2023-12-13 12:18 | Pharmacy Report ---
Pharmacy Glycemic Short Note 2 - Date of Service December 13, 2023 - Glycemic Short BSG Results (Last 24 hours): 12/12/23 12/12/23 12/12/23 11:58 17:05 21:04 Glucose POC Glucose 125 H 145 H 109 H 12/13/23 12/13/23 12/13/23 06:13 07:55 11:51 Glucose 123 H POC Glucose 121 H 167 H OUTPATIENT ANTIDIABETIC REGIMEN: * Levemir 80 units SC BID * Glipizide 5 mg PO BID * Metformin 1000 mg PO BID * HbA1c: 8.1% (12/08/23) ASSESSMENT: 12/12: * BSGs have been stable past ~48 hours+. * Pt will be NPO after midnight tonight for R BKA tomorrow w/ Dr Greenberg. * Anticipate that current regimen will be appropriate, even while NPO. * Pharmacy will continue to follow and adjust regimen as indicated. 12/08: * Oliverio received 81 units of insulin yesterday, 70 basal + 11 bolus. BSGs were: [phone] mg/dL. * Fasting BSG down to 159 mg/dL this AM. Patient remains NPO today for surgery which is scheduled. Of note, he was NPO for all of yesterday as well. * Will adjust basal scale to only provide 30 or 40 units of insulin BID pending BSG. Since patient tolerated 70 units of basal yesterday while NPO, I am not concerned for hypoglycemia today as patient will likely be ordered a diet and start eating postoperatively. * No change to Novolog. * Remains on heparin drip, LR at 80 cc/hr, daptomycin, clindamycin and zosyn. 12/07: * 68 y/o M admitted for Ischemic foot/non-healing foot infection yesterday. Patient has history of Type 2 diabetes managed on insulin and oral anti- diabetic meds at home. * Last night patient received 30 units of basal insulin which is around 40% of his home basal dose. * Fasting BSG today was 213 mg/dl. Basal dose increased to 40 units today AM which was given later at noon due to patient being out of room for vascular study. * Currently NPO awaiting thrombectomy with vascular surgery tomorrow. * BSG trended down to 161 mg/dl at noon today. Novolog parameters were ordered based on stress of 3. This is continued. * Basal at HS ordered on a scale based on BSG. Will re-assess basal doses. PLAN FOR INPATIENT GLYCEMIC CONTROL: * Hold outpatient oral diabetes medications * Basal insulin * Lantus 20 units SC BID * Bolus insulin * NovoLog per scale ACHS or Q6hrs while NPO * Goal Range: Low 110 mg/dL - High 140 mg/dL * Correction Factor: 15 mg/dL/unit * Nutritional / Prandial insulin per carb ratio of 1 unit per 5 grams CHO consumed
--- NOTE | 2023-12-13 16:34 | Hospitalist Progress Note ---
Date of Service December 13, 2023 Assessment & Plan (1) Acute and chronic respiratory failure: Plan: He was extubated in the OR 12/08, extubated 12/09. Patient has RV dysfunction: POCUS reveals dilated IVC, dilated RV, dilated LA. Chest x-ray showed pulmonary edema Patient was given IV Lasix Resolved Now saturating 95% on 3L (2) Septic shock: Plan: Patient has staph bacteremia. Blood culture from 12/06 growing Staphylococcus Source is his foot. Shock is resolved Not on pressors anymore There were initial concerns of gas gangrene/necrotizing fasciitis however clinically did not correlate Moreover cellulitis seems to be improving with IV antibiotics Infectious disease on board Improving TTE ruled out vegetation Repeat blood cultures ordered 12/07. So far negative for 48 hours On IV clindamycin, IV vancomycin, IV Zosyn per infectious disease recommendation (3) Ischemic foot: Plan: Occluded right popliteal artery Failed attempt of thrombectomy 12/08 Vascular surgery plans on amputation tomorrow 12/13 Severe peripheral vascular disease (4) Cellulitis of foot, right: Plan: Please see problem #2 Cellulitis improving (5) PAD (peripheral artery disease): Plan: ASA, clopidogrel Rosuvastatin on hold with daptomycin use Failed attempt of thrombectomy 12/08 Will need amputation. Plan for tomorrow 12/13 (6) Type 2 diabetes mellitus: Plan: A1c 8.1 Outpatient on Levemir 60 units BID, Novolog 6 units AC, glyburide Consult pharmacy for glycemic control (7) BETTE (obstructive sleep apnea): Plan: Not on CPAP, on chronic O2 (8) Chronic respiratory failure: Plan: Chronic 4LPM O2 (9) CHF (congestive heart failure): Plan: Patient has CHFpEF Currently euvolemic Furosemide was being held pre-operatively Patient got Lasix on 12/09 as chest x-ray showed fluid overload (10) Hypertension: Plan: Continue metoprolol succinate Hold lisinopril, furosemide pre operatively (11) Pressure ulcer of right foot, unstageable: (12) Occlusion of right popliteal artery: (13) Bacteremia due to Staphylococcus: Plan: Foot source Infectious disease involved Continue IV antibiotics Admission and Anticipated Discharge Date Admission Date: December 07, 2023 Subjective Patient feels well. Denies chest pain or shortness of breath Review of Systems Review of Systems: All systems reviewed & are unremarkable except as noted in Subjective Physical Exam Physical Exam: General: Awake, conversant. Heart: S1, S2/regular rate and rhythm, no murmur rubs or gallops Lungs: Clear to auscultation bilaterally. Normal effort Abdomen: Soft/nontender/nondistended. No hepatosplenomegaly. Positive bowel sounds Extremities: No clubbing/cyanosis. Cellulitis improved. Ulcers in the dorsum and lateral aspect of the foot with eschar Behavior: Unable to assess Results & Data Results & Data Vital Signs (Past 12 Hours) Vital Signs Temp Pulse Pulse Resp BP Pulse Ox O2 Del Method 12/13/23 15:11 36.5 C 77 19 120/75 95 Nasal Cannula 12/13/23 11:23 37.0 C 87 20 133/76 97 Nasal Cannula 12/13/23 08:00 93 H 12/13/23 08:00 Nasal Cannula 12/13/23 07:11 37.3 C 85 18 136/85 92 Nasal Cannula O2 Flow Rate 12/13/23 15:11 3 12/13/23 11:23 3 12/13/23 08:00 12/13/23 08:00 3.5 12/13/23 07:11 3 Laboratory Results Abnormal lab results 12/12/23 12/12/23 12/13/23 Range/Units 17:05 21:04 06:13 WBC 17.02 H (4.8-10.8) K/ul RBC 3.85 L (4.70-6.10) M/uL Hgb 10.1 L (14.0-18.0) g/dl Hct 33.5 L (42.0-52.0) % MCHC 30.1 L (32.0-36.0) g/dL RDW Std Deviation 48.7 H (36.4-46.3) fL RDW Coeff of Larry 15.4 H (11.5-14.5) % Sodium 135 L (136-145) mmol/L Chloride 97 L (98-107) mmol/L BUN/Creatinine Ratio 25.0 H (10-20) Glucose 123 H (70-99(Fasting)) mg/dl POC Glucose 145 H 109 H (70-99) mg/dl 12/13/23 12/13/23 12/13/23 Range/Units 07:55 11:51 16:16 WBC (4.8-10.8) K/ul RBC (4.70-6.10) M/uL Hgb (14.0-18.0) g/dl Hct (42.0-52.0) % MCHC (32.0-36.0) g/dL RDW Std Deviation (36.4-46.3) fL RDW Coeff of Larry (11.5-14.5) % Sodium (136-145) mmol/L Chloride (98-107) mmol/L BUN/Creatinine Ratio (10-20) Glucose (70-99(Fasting)) mg/dl POC Glucose 121 H 167 H 103 H (70-99) mg/dl PG Care Time/CCT Total # of Minutes Spent Total Time Spent with Patient: Total time spent is greater than 50% in coordination of care (as documented) at patient's floor/unit and/or counseling patient: Coding Level of Care Code 29473 SUB INP/OBS CARE 2/35MIN Diagnoses Acute on chronic respiratory failure with hypoxia J96.21 Respiratory failure complication: hypoxia Septic shock A41.9; R65.21 Ischemic foot I99.8 Cellulitis of foot, right L03.115 PAD (peripheral artery disease) I73.9 Type 2 diabetes mellitus E11.9 BETTE (obstructive sleep apnea) G47.33 Chronic respiratory failure J96.10 CHF (congestive heart failure) I50.9 Hypertension I10 Pressure ulcer of right foot, unstageable L89.890 Occlusion of right popliteal artery I70.201 Bacteremia due to Staphylococcus R78.81; B95.8 (1) Acute and chronic respiratory failure Respiratory failure complication: hypoxia Qualified Code(s): J96.21 - Acute and chronic respiratory failure with hypoxia
[2023-12-14 06:27] LABS: Mean Corpuscular Hemoglobin 26.1 pg (25.0-34.0); Mean Corpuscular Hgb Conc 30.3 g/dL (32.0-36.0); Mean Corpuscular Volume 86.2 fL (80.0-100.0); Platelet Count 427 K/uL (130-400); RDW Coefficient of Variation 15.3 % (11.5-14.5); RDW Standard Deviation 48.4 fL (36.4-46.3); Red Blood Count 3.83 M/uL (4.70-6.10); White Blood Count 17.58 K/ul (4.8-10.8)
[2023-12-14 06:47] LABS: BUN Creatinine Ratio 23.3 (10-20); Calcium 8.7 mg/dl (8.6-10.3); Creatinine Clr Calc Pharmacy 92.1 ml/min; Est GFR (African American) 101.4 ml/min; Est GFR (Non-African American) 87.5 ml/min; Potassium 4.2 mmol/L (3.5-5.1)
[2023-12-14] MEDS ORDERED: SODIUM CHLORIDE 0.9% 250 ML IV PRN (07:00)
[2023-12-14] MEDS: LANTUS PER UNIT CHARGE SC SCH (08:50)
--- NOTE | 2023-12-14 09:31 | History & Physical Bridge Note ---
Date of Service December 14, 2023 History & Physical Bridge Note Patient for a right below the knee amputation possible above knee today. I have discussed the risks options and benefits of the procedure with the patient. The patient understands the risks options and benefits and agrees to the procedure. I have examined the patient, reviewed the History & Physical and in the interval since the performance of the History & Physical I have noted the following changes of clinical significance: no changes noted
--- NOTE | 2023-12-14 13:49 | Pharmacy Report ---
Pharmacy Glycemic Short Note 2 - Date of Service December 14, 2023 - Glycemic Short BSG Results (Last 24 hours): 12/13/23 12/13/23 12/14/23 16:16 20:20 06:04 Glucose 136 H POC Glucose 103 H 103 H 12/14/23 12:00 Glucose POC Glucose 118 H OUTPATIENT ANTIDIABETIC REGIMEN: * Levemir 80 units SC BID * Glipizide 5 mg PO BID * Metformin 1000 mg PO BID * HbA1c: 8.1% (12/08/23) ASSESSMENT: 12/13: * Patient remains NPO- did adjust lantus slightly this morning- monitor fasting tomorrow 12/12: * BSGs have been stable past ~48 hours+. * Pt will be NPO after midnight tonight for R BKA tomorrow w/ Dr Greenberg. * Anticipate that current regimen will be appropriate, even while NPO. * Pharmacy will continue to follow and adjust regimen as indicated. 12/08: * Oliverio received 81 units of insulin yesterday, 70 basal + 11 bolus. BSGs were: 200-037-320-153 mg/dL. * Fasting BSG down to 159 mg/dL this AM. Patient remains NPO today for surgery which is scheduled. Of note, he was NPO for all of yesterday as well. * Will adjust basal scale to only provide 30 or 40 units of insulin BID pending BSG. Since patient tolerated 70 units of basal yesterday while NPO, I am not concerned for hypoglycemia today as patient will likely be ordered a diet and start eating postoperatively. * No change to Novolog. * Remains on heparin drip, LR at 80 cc/hr, daptomycin, clindamycin and zosyn. 12/07: * 68 y/o M admitted for Ischemic foot/non-healing foot infection yesterday. Patient has history of Type 2 diabetes managed on insulin and oral anti- diabetic meds at home. * Last night patient received 30 units of basal insulin which is around 40% of his home basal dose. * Fasting BSG today was 213 mg/dl. Basal dose increased to 40 units today AM which was given later at noon due to patient being out of room for vascular study. * Currently NPO awaiting thrombectomy with vascular surgery tomorrow. * BSG trended down to 161 mg/dl at noon today. Novolog parameters were ordered based on stress of 3. This is continued. * Basal at HS ordered on a scale based on BSG. Will re-assess basal doses. PLAN FOR INPATIENT GLYCEMIC CONTROL: * Hold outpatient oral diabetes medications * Basal insulin * Lantus 15 units SC BID * Bolus insulin * NovoLog per scale ACHS or Q6hrs while NPO * Goal Range: Low 110 mg/dL - High 140 mg/dL * Correction Factor: 15 mg/dL/unit * Nutritional / Prandial insulin per carb ratio of 1 unit per 5 grams CHO consumed
[2023-12-14] MEDS ORDERED: fentaNYL citrate PF 100 MCG/2 ML VIAL ONE (14:31)
[2023-12-14] MEDS ORDERED: LIDOCAINE 2% 2 ML VIAL/AMP(20MG/ML) INFIL ONE (14:32)
[2023-12-14] MEDS ORDERED: MIDAZOLAM HCL 1 MG/ML 2ML VIAL ONE (14:32)
[2023-12-14] MEDS ORDERED: ONDANSETRON INJ 2 MG/ML 2 ML VIAL ONE (14:32)
[2023-12-14] MEDS ORDERED: ROCURONIUM BROMIDE 10 MG/ML 5 ML VIAL IV ONE ×2 (14:32→15:17)
[2023-12-14] MEDS ORDERED: PROPOFOL IV EMULSION 10 MG/ML 20 ML VIAL IV ONE (14:32)
[2023-12-14] MEDS ORDERED: DEXAMETHASONE SOD INJ 4 MG/ML VIAL ONE (14:32)
--- NOTE | 2023-12-14 14:47 | Anesthesiology Consultation ---
Date of Service December 14, 2023 Assessment & Plan Chart Review Chart Review: Acceptable Risk for Surgery and Patient NOT seen in Pre Admission Testing Consults Requested none History Surgery Operation Date: 12/09/23 11:10 Proposed Procedures p Right Lower Extremity Thrombectomy, Possible Femoral Popliteal Bypass - Shahab Greenberg MD Operation Date: 12/14/23 14:10 Proposed Procedures p Right Leg Below Knee Amputation, Possible Above Knee Amputation - Shahab Greenberg MD Height/Weight Height: 5 ft 8 in Weight: 104.6 kg Allergies Allergy/AdvReac Type Severity Reaction Status Date / Time empagliflozin Allergy Intermediate Nausea, Verified 10/27/23 10:36 [From Jardiance] Dizziness Medications Home Medications Medication Instructions Recorded Confirmed Last Taken aspirin 81 mg tablet,delayed 81 mg PO QAM 04/02/21 10/27/23 10/27/23 08:00 release furosemide 40 mg tablet 40 mg PO QAM 04/02/21 10/27/23 10/27/23 08:00 glyburide 5 mg tablet 5 mg PO BID 04/02/21 10/27/23 10/26/23 20:00 insulin aspart U-100 100 unit/mL 6 unit subcut AC 04/02/21 10/27/23 01/11/23 (3 mL) subcutaneous pen (Novolog FlexPen U-100 Insulin aspart) insulin detemir U-100 100 unit/mL 80 unit subcut BID 04/02/21 10/27/23 10/27/23 08:00 (3 mL) subcutaneous pen (Levemir FlexTouch U-100 Insulin) lisinopril 30 mg tablet 30 mg PO QAM 04/02/21 10/27/23 10/27/23 08:00 metformin 1,000 mg tablet 1,000 mg PO BID 04/02/21 10/27/23 10/25/23 20:00 metoprolol succinate 50 mg 50 mg PO QAM 04/02/21 10/27/23 10/27/23 08:00 tablet,extended release 24 hr nitroglycerin 0.4 mg sublingual 0.4 mg buccal DIRECTED PRN 04/02/21 10/27/23 Unknown tablet Chest Pain rosuvastatin 10 mg tablet (Crestor) 10 mg PO DAILY 04/02/21 10/27/23 10/27/23 08:00 cefprozil 250 mg tablet 0 mg TID 01/12/23 10/27/23 01/12/23 clopidogrel 75 mg tablet 75 mg PO DAILY 01/12/23 10/27/23 10/27/23 08:00 cyclobenzaprine 5 mg tablet 5 mg PO TID 01/12/23 10/27/23 10/26/23 20:00 metronidazole 500 mg tablet 500 mg PO TID 01/12/23 10/27/23 01/12/23 nortriptyline 25 mg capsule 0 mg PO DAILY 01/12/23 10/27/23 10/26/23 20:00 pantoprazole 40 mg tablet,delayed 40 mg PO DAILY 01/12/23 10/27/23 10/27/23 08:00 release (Protonix) Active Medications Generic Name Dose Route Start Last Admin Trade Name Freq PRN Reason Stop Dose Admin Acetaminophen 1,000 mg 12/07/23 21:00 12/14/23 13:35 Acetaminophen 500 Mg Tab PO 01/06/24 20:59 Not Given TID [facility] Aspirin 81 mg 12/08/23 09:00 12/14/23 07:48 Aspirin 81 Mg Ectab PO 01/07/24 08:59 81 mg QAM WENDY Administration Piperacillin Sod/Tazobactam 100 mls @ 25 mls/hr 12/07/23 22:00 12/14/23 13:40 Sod 4.5 gm/ Dextrose IV 12/14/23 21:59 25 mls/hr Q8H [facility] Administration Protocol Clindamycin Phosphate 900 mg in 50 mls @ 100 mls/hr 12/07/23 22:00 12/14/23 14:12 Cleocin/D5w IV 12/14/23 21:59 Infused Q8H [facility] Infusion Daptomycin 500 mg/ Syringe 10 mls @ 5 mls/min 12/09/23 22:00 12/12/23 21:42 IV 12/21/23 21:59 5 mls/min Q24H [facility] Administration Protocol Insulin Aspart 0 units 12/12/23 11:30 12/14/23 12:05 Insulin Aspart Per Unit Charge SC 01/11/24 05:59 Not Given ACHS [facility] Protocol Insulin Glargine 15 units 12/14/23 09:00 12/14/23 08:50 Lantus Per Unit Charge SC 01/11/24 20:59 15 units BID WENDY Administration Metoprolol Succinate 50 mg 12/08/23 09:00 12/14/23 07:48 Metoprolol Succ 50mg Ext Rel Tab PO 01/07/24 08:59 50 mg QAM WENDY Administration Nortriptyline HCl 25 mg 12/07/23 22:00 12/13/23 20:54 Nortriptyline Hcl 25 Mg Cap PO 01/06/24 21:59 25 mg HS WENDY Administration Oxycodone HCl 5 mg 12/07/23 20:54 12/12/23 12:33 Oxycodone Hcl Ir 5 Mg Tab (Immediate Release) PO 12/21/23 20:53 5 mg Q4H PRN Administration MODERATE Pain (4,5,6) & Pre PT Pantoprazole Sodium 40 mg 12/08/23 09:00 12/14/23 07:48 Pantoprazole 40 Mg Tab PO 01/07/24 08:59 40 mg DAILY WENDY Administration NPO Date Last Intake of Fluids: 12/13/23 Time Last Intake of Fluids: 21:00 Last Intake of Fluids Comment: sip of water 0800 w/med Date Last Intake of Solids: 12/13/23 Time Last Intake of Solids: 17:00 Past Medical History Medical History Septic shock Endotracheally intubated RVF (right ventricular failure) COPD (chronic obstructive pulmonary disease) Chronic respiratory failure CKD (chronic kidney disease) stage 2, GFR 60-89 ml/min Coronary artery disease Pulmonary hypertension CHF (congestive heart failure) BETTE (obstructive sleep apnea) Type 2 diabetes mellitus Hyperlipidemia Hypertension Past Family History Family History Other Family history non-contributory Social History Smoking Status: Former smoker Smoking cigarettes per day: na Do You Dip or Chew Tobacco: No Smoking End Date: 15-20 years ago Hx Alcohol Use: Yes (rarely) alcohol intake frequency: holidays/special occasions only Hx Substance Use: No substance use type: does not use Substance Use Type Other:: na Last Used Substance Other:: na Physical Exam Vital Signs Last Vital Signs Temp 37.5 C 12/14/23 14:40 Pulse 85 12/14/23 14:40 Resp 20 12/14/23 14:40 BP 150/72 H 12/14/23 14:40 Pulse Ox 94 12/14/23 14:40 O2 Del Method Nasal Cannula 12/14/23 14:40 O2 Flow Rate 3 12/14/23 14:40 FiO2 45 12/10/23 09:46 Constitutional WD/WN, vitals as above well developed, + ill appearing and cooperative; + not well nourished, no acute distress and not in distress Eyes + anicteric sclerae; normal pupil size ENMT external ear and nose normal, oropharynx normal Ears: + hearing impairment Mouth: + edentulous; no TMJ abnormality Thyromental Distance: > or= 3.5 Finger Breadths Mallampati Class: IV Neck normal visual inspection and trachea midline; neck extension not limited Respiratory normal respiratory effort, lungs clear to auscultation normal respiratory effort Auscultation: lungs clear to auscultation bilaterally Cardiovascular Rate/Rhythm: regular rate, regular rhythm and + tachycardic Heart Sounds: no murmur Vessels: femoral pulses present, posterior tibial pulses present (+ LLE, no pulse RLE) and dorsalis pedis pulses present (+ LLE, no pulse RLE) Extremities: normal capillary refill (LLE normal, RLE no cap refill); no calf tenderness Gastrointestinal (Abdomen) normal bowel sounds, soft, nontender, no hepatosplenomegaly Musculoskeletal Spine: normal cervical ROM Extremities: full ROM of extremities Neurologic moves all extremities and awake; not confused Psychiatric A+Ox3, euthymic affect Orientation: alert and oriented x 3 Testing Laboratory Results 12/14/23 06:04 12/14/23 06:04 PT 11.2 Seconds (9.0-12.0) 12/07/23 15:27 INR 1.0 (0.9-1.1) 12/07/23 15:27 APTT 30 Seconds (21-31) 12/07/23 15:27 Hemoglobin A1c 8.1 % (4.5-5.6) H 12/08/23 05:56 Blood Type O Positive 12/14/23 06:04 Antibody Screen NEGATIVE 12/14/23 06:04 12/08/23 20:23 Aerobic Blood Culture - Final Blood No growth in Aerobic bottle after 5 days. Anaerobic Blood Culture - Final No growth in Anaerobic bottle after 5 days. 12/08/23 20:36 Aerobic Blood Culture - Final Blood No growth in Aerobic bottle after 5 days. Anaerobic Blood Culture - Final 12/07/23 16:53 Aerobic Blood Culture - Final Blood No growth in Aerobic bottle after 5 days. Anaerobic Blood Culture - Final Coag neg staph not lugdunensis 12/07/23 16:50 Aerobic Blood Culture - Final Blood No growth in Aerobic bottle after 5 days. Anaerobic Blood Culture - Final Coag neg staph not lugdunensis 12/10/23 09:32 Gram Stain - Final Sputum,Vent Suction Sputum Culture - Final Yeast not Kristal albicans/dub 12/14/23 12:00 POC Glucose 118 H Electrocardiogram Date: 12/07/23 sinus tachycardia @124, RBBB, septal infarct. Chest X-Ray Findings: no cardiomegaly Echocardiogram Date: 04/03/21 EF: 60-65 severely dilated right ventricle and atrium
[2023-12-14] MEDS ORDERED: fentaNYL citrate PF 100 MCG/2 ML VIAL IV PRN (14:50)
[2023-12-14] MEDS ORDERED: ePHEDrine sulfate 50 MG/5 ML SYR ONE (15:17)
[2023-12-14] MEDS ORDERED: PHENYLEPHRINE HCL 10 MG/ML VIAL ONE ×2 (15:17→16:28)
[2023-12-14] MEDS ORDERED: diphenhydrAMINE 50 MG/ML VIAL ONE (15:32)
[2023-12-14] MEDS ORDERED: ALBUTEROL HFA 8 GM INHALER INH ONE (15:36)
[2023-12-14] MEDS ORDERED: SUGAMMADEX SODIUM 200 MG/2 ML VIAL IV ONE ×2 (15:57)
[2023-12-14] MEDS ORDERED: VASOPRESSIN 20 UNIT/ML VIAL ONE ×2 (16:08→16:33)
--- NOTE | 2023-12-14 16:17 | Post Operative Brief Note ---
Immediate Post Op Note v1 Date of Surgery December 14, 2023 Pre & Post Diagnosis Operation Date: 12/14/23 14:10 Pre-Op Diagnosis: Right ischemic foot. Post-Op Diagnosis: Right ischemic foot. I identified the patient and participated in the time-out.: Yes Procedure Operation Date: 12/14/23 14:10 Actual Procedures p Right Leg Below Knee Amputation(Right) - Shahab Greenberg MD Surgeon Shahab Greenberg MD Molder Pipe Covering Alan Horan,PAC Estimated Blood Loss 200 Findings Consistent with Post-Op Diagnosis Drains Choi Catheter Anesthesia Type General Complications none Disposition Accompanied Patient To Recovery: No Disposition: Recovery Room
[2023-12-14] MEDS ORDERED: PROPOFOL IV EMULSION 10 MG/ML 100 ML VIAL IV ONE (16:33)
--- NOTE | 2023-12-14 16:41 | Hospitalist Progress Note ---
Date of Service December 14, 2023 Assessment & Plan (1) Acute and chronic respiratory failure: Plan: He was extubated in the OR 12/08, extubated 12/09. Patient has RV dysfunction: POCUS reveals dilated IVC, dilated RV, dilated LA. Chest x-ray showed pulmonary edema Patient was given IV Lasix Resolved Now saturating 95% on 3L (2) Septic shock: Plan: Patient has staph bacteremia. Blood culture from 12/06 growing Staphylococcus Source is his foot. Shock is resolved Not on pressors anymore There were initial concerns of gas gangrene/necrotizing fasciitis however clinically did not correlate Moreover cellulitis seems to be improving with IV antibiotics Infectious disease on board Improving TTE ruled out vegetation Repeat blood cultures ordered 12/07. So far negative for 48 hours On IV clindamycin, IV vancomycin, IV Zosyn per infectious disease recommendation (3) Ischemic foot: Plan: Occluded right popliteal artery Failed attempt of thrombectomy 12/08 Vascular surgery to do amputation today 12/13 Severe peripheral vascular disease (4) Cellulitis of foot, right: Plan: Please see problem #2 Cellulitis improving (5) PAD (peripheral artery disease): Plan: ASA, clopidogrel Rosuvastatin on hold with daptomycin use Failed attempt of thrombectomy 12/08 Amputation today 12/13 (6) Type 2 diabetes mellitus: Plan: A1c 8.1 Outpatient on Levemir 60 units BID, Novolog 6 units AC, glyburide Consult pharmacy for glycemic control (7) BETTE (obstructive sleep apnea): Plan: Not on CPAP, on chronic O2 (8) Chronic respiratory failure: Plan: Chronic 4LPM O2 (9) CHF (congestive heart failure): Plan: Patient has CHFpEF Currently euvolemic Furosemide was being held pre-operatively Patient got Lasix on 12/09 as chest x-ray showed fluid overload (10) Hypertension: Plan: Continue metoprolol succinate Hold lisinopril, furosemide pre operatively (11) Pressure ulcer of right foot, unstageable: (12) Occlusion of right popliteal artery: (13) Bacteremia due to Staphylococcus: Plan: Foot source Infectious disease involved Continue IV antibiotics Admission and Anticipated Discharge Date Admission Date: December 07, 2023 Subjective I saw the patient earlier this morning before he went to the OR. He did not have any complaints. He was waiting to get done with the surgery. Review of Systems Review of Systems: All systems reviewed & are unremarkable except as noted in Subjective Physical Exam Physical Exam: General: Awake, conversant. Heart: S1, S2/regular rate and rhythm, no murmur rubs or gallops Lungs: Clear to auscultation bilaterally. Normal effort Abdomen: Soft/nontender/nondistended. No hepatosplenomegaly. Positive bowel sounds Extremities: No clubbing/cyanosis. Cellulitis improved. Ulcers in the dorsum and lateral aspect of the foot with eschar Behavior: Appropriate, cooperative Results & Data Results & Data Vital Signs (Past 12 Hours) Vital Signs Temp Pulse Pulse Resp BP Pulse Ox O2 Del Method 12/14/23 14:40 37.5 C 85 20 150/72 H 94 Nasal Cannula 12/14/23 11:20 37.2 C 85 19 158/86 H 94 Nasal Cannula 12/14/23 08:00 81 12/14/23 07:16 36.8 C 81 19 158/83 H 96 Nasal Cannula O2 Flow Rate 12/14/23 14:40 3 12/14/23 11:20 3 12/14/23 08:00 12/14/23 07:16 3 Laboratory Results Abnormal lab results 12/13/23 12/14/23 12/14/23 Range/Units 20:20 06:04 12:00 WBC 17.58 H (4.8-10.8) K/ul RBC 3.83 L (4.70-6.10) M/uL Hgb 10.0 L (14.0-18.0) g/dl Hct 33.0 L (42.0-52.0) % MCHC 30.3 L (32.0-36.0) g/dL RDW Std Deviation 48.4 H (36.4-46.3) fL RDW Coeff of Larry 15.3 H (11.5-14.5) % Plt Count 427 H (130-400) K/uL BUN/Creatinine Ratio 23.3 H (10-20) Glucose 136 H (70-99(Fasting)) mg/dl POC Glucose 103 H 118 H (70-99) mg/dl Crossmatch See Detail PG Care Time/CCT Total # of Minutes Spent Total Time Spent with Patient: Total time spent is greater than 50% in coordination of care (as documented) at patient's floor/unit and/or counseling patient: Coding Level of Care Code 73133 SUB INP/OBS CARE Diagnoses Acute on chronic respiratory failure with hypoxia J96.21 Respiratory failure complication: hypoxia Septic shock A41.9; R65.21 Ischemic foot I99.8 Cellulitis of foot, right L03.115 PAD (peripheral artery disease) I73.9 Type 2 diabetes mellitus E11.9 BETTE (obstructive sleep apnea) G47.33 Chronic respiratory failure J96.10 CHF (congestive heart failure) I50.9 Hypertension I10 Pressure ulcer of right foot, unstageable L89.890 Occlusion of right popliteal artery I70.201 Bacteremia due to Staphylococcus R78.81; B95.8 (1) Acute and chronic respiratory failure Respiratory failure complication: hypoxia Qualified Code(s): J96.21 - Acute and chronic respiratory failure with hypoxia
[2023-12-14] MEDS: propofoL 1,000 MG/100 ML VIAL IV SCH (16:50)
[2023-12-14] MEDS: PHENYLEPHRINE/NSS 25 MG/250 ML BAG IV SCH (16:50)
[2023-12-14] MEDS ORDERED: STAT IV Infusion **Titration per Protocol STA ×3 (16:59→20:36)
[2023-12-14] MEDS ORDERED: PHENYLEPHRINE/NSS 25 MG/250 ML BAG IV PRN (16:59)
--- NOTE | 2023-12-14 17:03 | Anesthesiology Progress Note ---
Date of Service December 14, 2023 Anesthesia Post Procedure Vital Signs Vital Signs: Temp Pulse Pulse Pulse Resp BP BP 12/14/23 14:40 37.5 C 85 20 150/72 H 12/14/23 11:20 37.2 C 85 19 158/86 H 12/14/23 08:00 81 12/14/23 07:16 36.8 C 81 19 158/83 H 12/14/23 03:03 36.7 C 85 17 148/75 H 12/13/23 23:26 36.7 C 77 20 156/73 H 12/13/23 21:13 12/13/23 20:00 36.7 C 75 20 122/77 12/13/23 17:41 83 Pulse Ox O2 Del Method O2 Flow Rate 12/14/23 14:40 94 Nasal Cannula 3 12/14/23 11:20 94 Nasal Cannula 3 12/14/23 08:00 12/14/23 07:16 96 Nasal Cannula 3 12/14/23 03:03 92 Nasal Cannula 3 12/13/23 23:26 93 Nasal Cannula 3 12/13/23 21:13 Nasal Cannula 3 12/13/23 20:00 97 Nasal Cannula 3 12/13/23 17:41 Transfer of Care Handoff Completed per policy Notes Mental Status: see notes below (sedated) Patient Amnestic to Procedure: Yes Nausea / Vomiting: adequately controlled Pain: adequately controlled Airway Patency, RR, SpO2: see Notes below BP & HR: see Notes below Hydration State: stable & adequate Anesthetic Complications: no major complications apparent Notes: attempted extubation in OR. pt requiring vasopressors support and inadequate O2 sat despite adequate reversal. taken to icu intubated sedated and on pressors.
[2023-12-14] MEDS ORDERED: PROPOFOL BOLUS FROM BAG IV PRN (17:11)
--- NOTE | 2023-12-14 17:24 | Infectious Disease Progress Nt ---
Date of Service December 14, 2023 Assessment & Plan (1) Septic shock: (2) Endotracheally intubated: (3) Bacteremia due to Staphylococcus: (4) Pressure ulcer of right foot, unstageable: Plan 68 yo M with h/o PVD, CKD, COPD, DM, s/p right 5th toe amputation who was admitted on 12/06 with poor blood flow to right foot. Found to have concurrent cellulitis and bacteremia which ID consulted. Per patient and EMR, he was seen at wound care clinic d/t poor foot flow to right. Patient has a h/o PVD and underwent stenting previously. He has had I+D of Right foot in past and 5th digit amputation. He developed 2 ulcers in his leg. He underwent angioplasty w/ stenting of right popliteal artery and percutaneous transluminal angioplasty of proximal right superficial femoral artery on 10/27/23. His foot appeared to be healing but recently redness and pains started. Was not on antibiotics prior to admission. On admission 12/06, WBC 19, Cr 1.5 CTA proximal to mid right popliteal artery is occluded which includes the popliteal artery stent, high-grade stenosis within the distal popliteal artery, severe stenosis within a short segment of the mid posterior tibial artery. Imaging also noted Focal irregularity of the skin surface within the dorsum of the midfoot which may represent a skin ulceration or small laceration. There is a small amount of subcutaneous gas tracking superiorly along the anterior aspect of the mid to distal right lower leg. This is likely related to the skin ulceration/injury at the midfoot. A gas-forming organism is not excluded. No loculated fluid collections to suggest an abscess. Patient was started on daptomycin, clindamycin and Zosyn He was doing well. Patient went to OR 12/08 for Right lower extremity diagnostic angiogram, RLE open thrombectomy of SFA and popliteal artery Attempted revascularization of the right lower extremity which was unsuccessful. Post op he was extubated but immediately intubated again, patient hypotensive, TF to ICU on pressors. Suspicious of cardiac v pulm. Has since been extubated and on NC . Angio demonstrated no distal bypass targets for outflow. Per surgery "Foot is ischemic and appears necrotic" . Plan is to undergo RLE BKA vs AKA this week. CONS in blood cx Microbiology: Blood cultures 12/07/202309/11 bottles coag negative staph, not lugdunensis Blood cultures 12/08/2023 no growth to date sputum cultures 12/10/2023, rare yeast not Kristal albicans Antibiotics Vancomycin 12/06 Daptomycin 12/06ongoing Clindamycin 12/06ongoing Zosyn 12/06ongoing #Septic shock #Resp failure intubated 12/08 #Severe PVD Recommendations: -Continue IV Zosyn, Daptomycin Clindamycin Pending OR RLE BKA vs AKA in OR Follow up OR notes,cultures, pathology. .IF no concerns for residual infection can likely dc abx after a short course of Post op abx( ~ 5 d) -Follow up repeat blood cultures Megan Mclaughlin MD, MPH Infectious Disease [facility] Call [phone] with questions Admission and Anticipated Discharge Date Admission Date: December 07, 2023 Subjective This patient recommendation is based on a telemedicine consult request which was completed asynchronously through chart review and information provided by the primary physician. The patient was not seen or examined today. The evaluation is consultative in nature and all patient care and treatment decisions can either be accepted or rejected by the patient's primary hospital-based treating physician using their own independent medical judgment for their patient. Time Spent Reviewing Chart: 11 - 20 minutes Pending R BKA afebrile WBc 17.55 Results & Data Vital Signs (Past 12 Hours) Vital Signs Temp Pulse Pulse Resp BP Pulse Ox O2 Del Method 12/14/23 14:40 37.5 C 85 20 150/72 H 94 Nasal Cannula 12/14/23 11:20 37.2 C 85 19 158/86 H 94 Nasal Cannula 12/14/23 08:00 81 12/14/23 07:16 36.8 C 81 19 158/83 H 96 Nasal Cannula O2 Flow Rate 12/14/23 14:40 3 12/14/23 11:20 3 12/14/23 08:00 12/14/23 07:16 3 Laboratory Results Microbiology 12/08/23 20:23 Blood Aerobic Blood Culture - Final No growth in Aerobic bottle after 5 days. 12/08/23 20:23 Blood Anaerobic Blood Culture - Final No growth in Anaerobic bottle after 5 days. 12/08/23 20:36 Blood Aerobic Blood Culture - Final No growth in Aerobic bottle after 5 days. 12/08/23 20:36 Blood Anaerobic Blood Culture - Final 12/07/23 16:53 Blood Aerobic Blood Culture - Final No growth in Aerobic bottle after 5 days. 12/07/23 16:53 Blood Anaerobic Blood Culture - Final Coag neg staph not lugdunensis 12/07/23 16:50 Blood Aerobic Blood Culture - Final No growth in Aerobic bottle after 5 days. 12/07/23 16:50 Blood Anaerobic Blood Culture - Final Coag neg staph not lugdunensis 12/10/23 09:32 Sputum,Vent Suction Gram Stain - Final 12/10/23 09:32 Sputum,Vent Suction Sputum Culture - Final Yeast not Kristal albicans/dub
--- NOTE | 2023-12-14 17:25 | XRay Report ---
XR chest 1V portable HISTORY: ETT tube placement COMPARISON: Chest 12/09/2023. FINDINGS: Endotracheal tube terminates 3.1 cm from the sobai. There are low lung volumes. Trace pleu ral effusions. No pneumothorax. Cardiomegaly and pulmonary edema persists. Bibasilar linear densities favor subsegmental atelectasis. IMPRESSION: 1. Endotracheal tube terminates 3.1 cm from the sobia. 2. Cardiomegaly and mild pulmonary edema again noted. ACT 112: Negative or not required by law. Electronically signed by: Obey Segovia M.D. 12/14/2023 5:24 PM
[2023-12-14 18:13] LABS: iSTAT Allen Test Pass; iSTAT Art Bld Gas pCO2 Correct 62 mmHg (35-46); iSTAT Art Bld Gas pH Corrected 7.298 (7.35-7.45); iSTAT Arterial Blood Gas HCO3 30 meg/L (19-24); iSTAT Arterial Blood Gas pCO2 59 mmHg (35-46); iSTAT Arterial Blood Gas pH 7.32 (7.35-7.45); iSTAT Arterial Blood Gas pO2 70 mmHg (80-95); iSTAT Arterial Blood Gas pO2 C 76; iSTAT Carbon Dioxide 32 mmol/L (24-31); iSTAT FiO2 100 %; iSTAT Hematocrit 34 % (42-52); iSTAT Hemoglobin 11.6 g/dl (14.0-18.0); iSTAT Potassium 4.7 mmol/L (3.3-5.0); iSTAT Site R Radial; iSTAT Sodium 132 mmol/L (135-144)
--- NOTE | 2023-12-14 19:35 | Critical Care Progress Note ---
Date of Service December 14, 2023 Assessment & Plan (1) Endotracheally intubated: Plan: Plan Medically complex 68-year-old male with a history of progressive vascular disease and ischemic right lower extremity admitted to the hospital with severe cellulitis and possible osteomyelitis of the right lower extremity. He was positive for bacteremia with Staphylococcus species. Currently on multiple antibiotics with ID following. Underwent attempted revascularization of the right lower extremity which was unsuccessful. Initially admitted to ICU following failed revascularization of the right lower extremity which is ischemic, with septic shock requiring vasopressor support. Was extubated and downgraded to PCU. Patient now presents back to the ICU mechanically ventilated again requiring vasopressor support following scheduled right lower extremity BKA, for which she is postop. Neurologic: Patient sedation- Propofol Pulmonary: Patient with history of chronic hypoxic respiratory failure and now with acute on chronic hypoxic respiratory failure from RV dysfunction. Presents to the ICU mechanically ventilated postop for BKA. Will likely undergo SBT in the a.m. Follow-up morning chest x-ray and ABG. Hold on further diuresis for now co nsidering patient currently requiring vasopressor support. Continuous end-tidal CO2 and pulse ox monitoring. Cardiovascular: Shocksuspect septic shock with current sedation likely playing a role. Patient currently requiring phenylephrine drip to maintain MAP greater than 65. TTE with normal EF, grade 1 diastolic dysfunction and mildly dilated RV. Will obtain random cortisol to see if there would be benefit for Administration of glucocorticoids. Hold beta-shi. Continue to wean phenylephrine as tolerated. Will hold on aggressive fluid resuscitation given patient's underlying diastolic heart failure As he is currently Mechanically ventilated. Continuous monitoring on telemetry. Gastrointestinal: NPO Continue PPI Renal: Creatinine within normal limits. Previous hyponatremia resolved. Monitor routine BMPs and replete electrolytes as indicated. Will start maintenance fluids with Plasma-Lyte at 80 mL/h while patient n.p.o./intubated. Infectious disease: Staphylococcus bacteremia, Repeat BC 12/07 NTD. Sputum culture with rare yeast not Kristal albicans on 12/09.. Currently on broad-spectrum antibiotics with clindamycin, Zosyn and daptomycin. ID following, appreciate recommendations. Expect 5-day continued broad-spectrum antibiotic course following BKA. Hematologic: Patient with ischemic right lower extremity. Revascularization attempt by vascular surgery 12/09/2023 was unsuccessful. Now status post right BKA per vascular surgery. EBL 200. Repeat CBC pending. Endocrine: Maintain euglycemia. Pharmacy consult for management of diabetes mellitus. Currently on insulin therapy. Lines and tubes: Peripheral IVs, ET tube, Choi catheter VTE prophylaxis: SCDs. Hold anticoagulants following surgical procedure for now. CODE STATUS: Full Disposition: Patient to remain in ICU overnight and will attempt liberation from ventilator if appropriate tomorrow. CRITICAL CARE TIME - I have personally spent 48 minutes of critical care time in the direct management of this patient. This is a life/limb threatening event. This includes time spent evaluating patient, direct bedside care, chart review, placing orders, interpretation of diagnostic studies, discussion with consultants, patient, and family members, as well as other required patient management activities. This time is exclusive of all separately billable procedures, and teaching time and separate from and in addition to any other critical care service time. (2) Ischemic foot: (3) Septic shock: (4) Bacteremia due to Staphylococcus: (5) RVF (right ventricular failure): (6) Acute and chronic respiratory failure: (7) PAD (peripheral artery disease): (8) Type 2 diabetes mellitus: (9) Coronary artery disease: (10) Hypertension: Admission and Anticipated Discharge Date Admission Date: December 07, 2023 Supervising Physician Co-Signing Physician Notes Seen and examined. EMR reviewed. Discussed with LORNA and agree with assessment plan as noted. Please refer to my progress note from 12/15/2023 for additional details Subjective Medically complex 68-year-old male with vascular disease and ischemic right lower extremity, admitted to hospital with cellulitis and possible osteomyelitis, and undergoing treatment for Staphylococcus bacteremia. He underwent unsuccessful revascularization of the right lower extremity, and now presents back to the ICU postop for right BKA, for which she is now mechanically ventilated following the procedure. Currently on vasopressor support with phenylephrine drip. Patient to remain in ICU for further management at this time. Review of Systems Review of Systems: Unobtainable due to cognitive status and Unobtainable due to endotracheal tube Physical Exam Constitutional: + obese and + mechanically ventilated Eyes: PERRL, conjunctivae normal, anicteric sclerae ENMT: external ear and nose normal, oropharynx normal Neck: trachea midline, no thyromegaly Respiratory: normal respiratory effort, lungs clear to auscultation Cardiovascular: Rate/Rhythm: regular rate and regular rhythm Heart Sounds: normal S1 and normal S2; no murmur Vessels: no JVD Extremities: no edema Gastrointestinal (Abdomen): normal bowel sounds, soft, nontender, no hepatosplenomegaly Musculoskeletal: Right lower extremity BKA, with stump bandaged with surgical dressing without shadowing or drainage. Skin: no rashes, warm and dry Neurologic: Unable to assess due to sedation Psychiatric: Unable to assess due to sedation Genitourinary: Indwelling Choi catheter present, urine yellow and clear Results & Data Results & Data Vital Signs (Past 12 Hours) Vital Signs Temp Pulse Pulse Pulse Resp BP BP 12/14/23 19:19 37.2 C 12/14/23 19:15 117/68 12/14/23 19:15 74 22 12/14/23 19:00 121/74 12/14/23 19:00 75 22 12/14/23 18:45 77 22 12/14/23 18:45 114/72 12/14/23 18:30 119/66 12/14/23 18:30 79 22 12/14/23 18:29 121/69 12/14/23 18:29 79 22 12/14/23 18:25 119/68 12/14/23 18:25 80 22 12/14/23 18:22 22 12/14/23 18:20 114/69 12/14/23 18:15 12/14/23 18:14 12/14/23 17:14 78 12/14/23 17:10 38 C H 80 20 100/60 12/14/23 17:05 38.7 C H 97 H 20 90/60 L 12/14/23 17:00 38.2 C H 79 20 79/52 L 12/14/23 16:55 38.2 C H 79 20 12/14/23 16:55 79 20 12/14/23 16:50 38.2 C H 79 20 12/14/23 14:40 37.5 C 85 20 12/14/23 11:20 37.2 C 85 19 12/14/23 08:00 81 BP Pulse Ox O2 Del Method O2 Flow Rate FiO2 12/14/23 19:19 12/14/23 19:15 12/14/23 19:15 100 12/14/23 19:00 12/14/23 19:00 100 12/14/23 18:45 100 12/14/23 18:45 12/14/23 18:30 12/14/23 18:30 100 12/14/23 18:29 12/14/23 18:29 99 12/14/23 18:25 12/14/23 18:25 100 12/14/23 18:22 12/14/23 18:20 12/14/23 18:15 100 12/14/23 18:14 Mechanical Vent 12/14/23 17:14 12/14/23 17:10 99 Mechanical Vent 100 12/14/23 17:05 92 Mechanical Vent 100 12/14/23 17:00 90 Mechanical Vent 100 12/14/23 16:55 76/49 L 87 L Mechanical Vent 100 12/14/23 16:55 98 100 12/14/23 16:50 79/51 L 88 L Mechanical Vent 100 12/14/23 14:40 150/72 H 94 Nasal Cannula 3 12/14/23 11:20 158/86 H 94 Nasal Cannula 3 12/14/23 08:00 Coding Level of Care Code 00550 CRITICAL CARE 1ST 30-74M Diagnoses Endotracheally intubated Z97.8 Ischemic foot I99.8 Septic shock A41.9; R65.21 Bacteremia due to Staphylococcus R78.81; B95.8 RVF (right ventricular failure) I50.810 Acute on chronic respiratory failure with hypoxia J96.21 Respiratory failure complication: hypoxia PAD (peripheral artery disease) I73.9 Type 2 diabetes mellitus E11.9 Coronary artery disease I25.10 Hypertension I10 (6) Acute and chronic respiratory failure Respiratory failure complication: hypoxia Qualified Code(s): J96.21 - Acute and chronic respiratory failure with hypoxia
[2023-12-14] MEDS ORDERED: Nursing to Pharmacy Communication SCH (20:15)
[2023-12-14] MEDS ORDERED: fentaNYL BOLUS from BAG IV PRN (20:36)
[2023-12-14] MEDS: fentaNYL citrate 2,500 MCG/250 ML BAG IV SCH (21:01)
[2023-12-14 21:10] LABS: iSTAT Allen Test Pass; iSTAT Art Bld Gas pCO2 Correct 48 mmHg (35-46); iSTAT Art Bld Gas pH Corrected 7.375 (7.35-7.45); iSTAT Arterial Blood Gas HCO3 28 meg/L (19-24); iSTAT Arterial Blood Gas pCO2 48 mmHg (35-46); iSTAT Arterial Blood Gas pH 7.38 (7.35-7.45); iSTAT Arterial Blood Gas pO2 78 mmHg (80-95); iSTAT Arterial Blood Gas pO2 C 79; iSTAT Carbon Dioxide 29 mmol/L (24-31); iSTAT FiO2 40 %; iSTAT Hematocrit 33 % (42-52); iSTAT Hemoglobin 11.2 g/dl (14.0-18.0); iSTAT Potassium 4.7 mmol/L (3.3-5.0); iSTAT Site L Radial; iSTAT Sodium 133 mmol/L (135-144)
[2023-12-14] MEDS: PLASMA-LYTE A 1,000 ML IV SCH (21:21)
[2023-12-14 21:40] LABS: Albumin Globulin Ratio 0.9 (0.9-2); Albumin Level 3.2 gm/dl (3.4-5.0); Bilirubin,Total 0.5 mg/dl (0.2-1.0); Calcium 8.8 mg/dl (8.6-10.3); Creatinine Clr Calc Pharmacy 86.3 ml/min; Est GFR (African American) 93.8 ml/min; Est GFR (Non-African American) 80.9 ml/min; Globulin 3.6 gm/dl (2.5-4.0); Magnesium 1.9 mg/dl (1.7-2.4); Potassium 4.7 mmol/L (3.5-5.1); Total Protein 6.8 gm/dl (6.0-8.3)
[2023-12-14 22:05] LABS: Hemoglobin 9.4 g/dl (14.0-18.0); Mean Corpuscular Hemoglobin 26.5 pg (25.0-34.0); Mean Corpuscular Hgb Conc 30.3 g/dL (32.0-36.0); Mean Corpuscular Volume 87.3 fL (80.0-100.0); Mean Platelet Volume 10.5 fL (9.4-12.4); Platelet Count 556 K/uL (130-400); RDW Coefficient of Variation 15.4 % (11.5-14.5); RDW Standard Deviation 49.3 fL (36.4-46.3); Red Blood Count 3.55 M/uL (4.70-6.10); White Blood Count 23.77 K/ul (4.8-10.8)
[2023-12-14 22:25] LABS: Acanthocytes 1+; Basophils % (auto) 0.4 %; Eosinophils # (auto) 0.09 K/uL (0.00-0.50); Eosinophils % (auto) 0.4 %; Immature Granulocytes # (auto) 0.31 K/uL (0.01-0.20); Immature Granulocytes % (auto) 1.3 %; Lymphocytes # (auto) 1.61 K/uL (1.20-3.40); Lymphocytes % (auto) 6.8 %; Monocytes # (auto) 0.81 K/uL (0.11-0.59); Monocytes % (auto) 3.4 %; Neutrophils # (auto) 20.85 K/uL (1.40-6.50); Neutrophils % (auto) 87.7 %
[2023-12-14] MEDS: INSULIN ASPART PER UNIT CHARGE SC SCH (23:58)
[2023-12-15 04:21] LABS: iSTAT Allen Test Pass; iSTAT Art Bld Gas pCO2 Correct 44 mmHg (35-46); iSTAT Art Bld Gas pH Corrected 7.433 (7.35-7.45); iSTAT Arterial Blood Gas HCO3 29 meg/L (19-24); iSTAT Arterial Blood Gas pCO2 44 mmHg (35-46); iSTAT Arterial Blood Gas pH 7.44 (7.35-7.45); iSTAT Arterial Blood Gas pO2 65 mmHg (80-95); iSTAT Arterial Blood Gas pO2 C 67; iSTAT Carbon Dioxide 31 mmol/L (24-31); iSTAT FiO2 40 %; iSTAT Hematocrit 29 % (42-52); iSTAT Hemoglobin 9.9 g/dl (14.0-18.0); iSTAT Potassium 4.7 mmol/L (3.3-5.0); iSTAT Site L Radial; iSTAT Sodium 133 mmol/L (135-144)
[2023-12-15 05:08] LABS: Hemoglobin 9.3 g/dl (14.0-18.0); Mean Corpuscular Hemoglobin 26.3 pg (25.0-34.0); Mean Corpuscular Volume 84.7 fL (80.0-100.0); Platelet Count 419 K/uL (130-400); RDW Coefficient of Variation 15.5 % (11.5-14.5); RDW Standard Deviation 47.7 fL (36.4-46.3); Red Blood Count 3.54 M/uL (4.70-6.10); White Blood Count 14.28 K/ul (4.8-10.8)
[2023-12-15 05:26] LABS: Calcium 8.8 mg/dl (8.6-10.3); Creatinine Clr Calc Pharmacy 91.7 ml/min; Est GFR (African American) 101.4 ml/min; Est GFR (Non-African American) 87.5 ml/min; Magnesium 1.9 mg/dl (1.7-2.4); Phosphorus 3.6 mg/dl (2.5-4.9); Potassium 4.8 mmol/L (3.5-5.1)
--- NOTE | 2023-12-15 07:17 | XRay Report ---
XR chest 1V portable CLINICAL HISTORY: Respiratory failure. COMPARISON STUDY: Chest CT January 12, 2023. Chest radiograph December 14, 2023. FINDINGS: The tip of the endotracheal tube is 4.2 cm above the sobia. Cardiomegaly is unchanged. The re is no pneumothorax or pleural effusion. Mild pulmonary edema has improved. Low lung volumes are un changed. Bilateral opacities persist. IMPRESSION: 1. Satisfactory positioning of the endotracheal tube. 2. Mild improvement in pulmonary edema. Persistent bibasilar opacities. ACT 112: Negative or not required by law. Electronically signed by: Thomas Monte M.D. 12/15/2023 7:16 AM
--- NOTE | 2023-12-15 07:51 | Critical Care Progress Note ---
Date of Service December 15, 2023 Assessment & Plan (1) Endotracheally intubated: Plan: Impression: Medically complex 68-year-old male with a history of progressive vascular disease and ischemic right lower extremity admitted to the hospital with severe cellulitis and possible osteomyelitis of the right lower extremity. He was positive for bacteremia with Staphylococcus species. Currently on multiple antibiotics with ID following. Underwent attempted revascularization of the right lower extremity which was unsuccessful. Initially admitted to ICU following failed revascularization of the right lower extremity which is ischemic, with septic shock requiring vasopressor support. Was extubated and downgraded to PCU. Patient now presents back to the ICU mechanically ventilated again requiring vasopressor support following scheduled right lower extremity BKA, for which she is postop. 24-hour events: Patient was taken to the OR for right BKA. Postoperatively was hypotensive requiring Ross-Synephrine and unable to liberate from mechanical ventilator so was brought to the ICU intubated and on pressors. Overnight his pressors were weaned off. This morning he self extubated and is doing well on room air currently. Recommendations: Neurologic: Now extubated. Pain control with IV Dilaudid and p.o. oxycodone. Continue Pamelor at night Pulmonary: Patient with history of chronic hypoxic respiratory failure and now with acute on chronic hypoxic respiratory failure from RV dysfunction. Now extubated. Pulmonary toilet. Incentive spirometry. Out of bed to chair as tolerated. Provide oxygen if needed. Cardiovascular: Hypotension resolved. Gastrointestinal: Advance diet as tolerated. On PPI. Renal: Creatinine within normal limits. Mild hyponatremia. All at this point in time. Discontinue IV fluids and the patient is taking adequate oral intake. Infectious disease: Staphylococcus bacteremia, Repeat BC 5/ NTD. Antibiotics per infectious disease. Currently on daptomycin for an additional 5 days. Yeast identified from the sputum is nonpathogenic and does not require therapy Hematologic: Mild anemia. Stable overnight. No indication for transfusion. White blood cell count decreasing Endocrine: Maintain euglycemia. Pharmacy consult for management of diabetes mellitus. Currently on insulin therapy. Lines and tubes: Peripheral IVs, ET tube, Choi catheter VTE prophylaxis: SCDs. Okay to restart today CODE STATUS: Full Disposition: Patient's critical care issues have resolved. He is okay to transfer back to the floor. Critical care services will sign off. Feel free to contact us with questions or concerns (2) Ischemic foot: (3) Septic shock: (4) Bacteremia due to Staphylococcus: (5) RVF (right ventricular failure): (6) Acute and chronic respiratory failure: (7) PAD (peripheral artery disease): (8) Type 2 diabetes mellitus: (9) Coronary artery disease: (10) Hypertension: Admission and Anticipated Discharge Date Admission Date: December 07, 2023 Subjective Patient seen and examined. EMR reviewed. Discussed with bedside critical care nurse and on multidisciplinary rounds. The patient self extubated this morning. He is off pressors. He is hemodynamically stable. He is not having any chest pain or shortness of breath. He is not coughing or wheezing. He has an appetite and is asking to eat. He is pain from his BKA is significant. He has not had any oral medications as of yet. Review of Systems Review of Systems: All systems reviewed & are unremarkable except as noted in Subjective Physical Exam Constitutional: + obese Eyes: PERRL, conjunctivae normal, anicteric sclerae ENMT: external ear and nose normal, oropharynx normal Neck: trachea midline, no thyromegaly Respiratory: normal respiratory effort, lungs clear to auscultation Cardiovascular: Rate/Rhythm: regular rate and regular rhythm Heart Sounds: normal S1 and normal S2; no murmur Vessels: no JVD Extremities: no edema Gastrointestinal (Abdomen): normal bowel sounds, soft, nontender, no hepa tosplenomegaly Musculoskeletal: Right lower extremity BKA, with stump bandaged with surgical dressing without shadowing or drainage. Skin: no rashes, warm and dry Neurologic: Nonfocal Genitourinary: Indwelling Choi catheter present, urine yellow and clear Results & Data Results & Data Vital Signs (Past 12 Hours) Vital Signs Temp Pulse Resp BP Pulse Ox FiO2 12/15/23 06:00 37.4 C 69 22 92 12/15/23 06:00 111/63 12/15/23 05:00 117/65 12/15/23 05:00 37.3 C 71 22 92 12/15/23 04:00 37.3 C 68 22 92 12/15/23 04:00 101/64 12/15/23 04:00 40 12/15/23 03:50 62 22 92 40 12/15/23 03:00 101/62 12/15/23 03:00 37.2 C 67 22 93 12/15/23 02:45 37.1 C 66 22 93 12/15/23 02:45 100/63 12/15/23 02:15 37.1 C 65 22 93 12/15/23 02:15 96/60 L 12/15/23 00:30 36.8 C 61 22 96 12/15/23 00:30 101/66 12/15/23 00:00 59 L 12/15/23 00:00 40 12/15/23 00:00 127/81 12/15/23 00:00 36.7 C 58 L 22 100 12/14/23 23:50 56 L 23 96 40 12/14/23 23:00 98/62 L 12/14/23 23:00 36.9 C 61 22 96 12/14/23 22:00 108/68 12/14/23 22:00 37.0 C 63 22 96 12/14/23 21:00 37.1 C 66 22 95 12/14/23 21:00 106/69 12/14/23 20:50 105/67 12/14/23 20:50 37.1 C 68 22 94 12/14/23 20:42 99/65 L 12/14/23 20:42 37.1 C 68 22 94 12/14/23 20:30 37.1 C 69 22 94 12/14/23 20:20 107/64 12/14/23 20:20 37.1 C 68 22 95 12/14/23 20:11 67 22 93 40 12/14/23 20:10 108/64 12/14/23 20:10 37.1 C 67 22 94 12/14/23 20:00 40 12/14/23 19:50 37.1 C 70 22 93 12/14/23 19:50 107/69 Critical Care Results & Data Vital Signs (Past 12 Hours) Vital Signs Temp Pulse Resp BP Pulse Ox FiO2 12/15/23 06:00 37.4 C 69 22 92 12/15/23 06:00 111/63 12/15/23 05:00 117/65 12/15/23 05:00 37.3 C 71 22 92 12/15/23 04:00 37.3 C 68 22 92 12/15/23 04:00 101/64 12/15/23 04:00 40 05/09/24 03:50 62 22 92 40 12/15/23 03:00 101/62 12/15/23 03:00 37.2 C 67 22 93 12/15/23 02:45 37.1 C 66 22 93 12/15/23 02:45 100/63 12/15/23 02:15 37.1 C 65 22 93 12/15/23 02:15 96/60 L 12/15/23 00:30 36.8 C 61 22 96 12/15/23 00:30 101/66 12/15/23 00:00 59 L 12/15/23 00:00 40 12/15/23 00:00 127/81 12/15/23 00:00 36.7 C 58 L 22 100 12/14/23 23:50 56 L 23 96 40 12/14/23 23:00 98/62 L 12/14/23 23:00 36.9 C 61 22 96 12/14/23 22:00 108/68 12/14/23 22:00 37.0 C 63 22 96 12/14/23 21:00 37.1 C 66 22 95 12/14/23 21:00 106/69 12/14/23 20:50 105/67 12/14/23 20:50 37.1 C 68 22 94 12/14/23 20:42 99/65 L 12/14/23 20:42 37.1 C 68 22 94 12/14/23 20:30 37.1 C 69 22 94 12/14/23 20:20 107/64 12/14/23 20:20 37.1 C 68 22 95 12/14/23 20:11 67 22 93 40 12/14/23 20:10 108/64 12/14/23 20:10 37.1 C 67 22 94 12/14/23 20:00 40 12/14/23 19:50 37.1 C 70 22 93 12/14/23 19:50 107/69 Lab & Micro Results (Past 24 Hours) RBC 3.54 M/uL (4.70-6.10) L 12/15/23 WBC 14.28 K/ul (4.8-10.8) H 12/15/23 Hgb 9.3 g/dl (14.0-18.0) L 12/15/23 Hct 30.0 % (42.0-52.0) L 12/15/23 MCV 84.7 fL (80.0-100.0) 12/15/23 MCH 26.3 pg (25.0-34.0) 12/15/23 MCHC 31.0 g/dL (32.0-36.0) L 12/15/23 RDW Standard Deviation 47.7 fL (36.4-46.3) H 12/15/23 RDW Coefficient of Variation 15.5 % (11.5-14.5) H 12/15/23 Plt Count 419 K/uL (130-400) H 12/15/23 MPV 10.0 fL (9.4-12.4) 12/15/23 Neutrophils (%) (Auto) 87.7 % 12/14/23 Lymphocytes (%) (Auto) 6.8 % 12/14/23 Monocytes # (Auto) 0.81 K/uL (0.11-0.59) H 12/14/23 Eosinophils # (Auto) 0.09 K/uL (0.00-0.50) 12/14/23 Immature Granulocyte % (Auto) 1.3 % 12/14/23 Neutrophils # (Auto) 20.85 K/uL (1.40-6.50) H 12/14/23 Lymphocytes # (Auto) 1.61 K/uL (1.20-3.40) 12/14/23 Monocytes # (Auto) 0.81 K/uL (0.11-0.59) H 12/14/23 Eosinophils # (Auto) 0.09 K/uL (0.00-0.50) 12/14/23 Basophils # (Auto) 0.10 K/uL (0.00-0.20) 12/14/23 Immature Granulocyte # (Auto) 0.31 K/uL (0.01-0.20) H 12/13 Acanthocytes 1+ 12/14/23 Na 135 mmol/L (136-145) L 12/15/23 K 4.8 mmol/L (3.5-5.1) 12/15/23 Cl 98 mmol/L (98-107) 12/15/23 CO2 29 mmol/L (21-32) 12/15/23 Anion Gap 8 (3-11) 12/15/23 BUN 27 mg/dl (6-23) H 12/15/23 Creatinine 0.90 mg/dl (0.6-1.4) 12/15/23 Estimated GFR ( Amer) 101.4 ml/min 12/15/23 Estimated GFR (Non-Af Amer) 87.5 ml/min 12/15/23 BUN/Creatinine Ratio 30.0 (10-20) H 12/15/23 Glu 152 mg/dl (70-99(Fasting)) H 12/15/23 Ca 8.8 mg/dl (8.6-10.3) 12/15/23 Phosphorus Level 3.6 mg/dl (2.5-4.9) 12/15/23 Total Bilirubin 0.5 mg/dl (0.2-1.0) 12/14/23 AST 16 U/L (13-39) 12/14/23 ALT 15 U/L (7-52) 12/14/23 Alkaline Phosphatase 84 U/L (34-104) 12/14/23 TP 6.8 gm/dl (6.0-8.3) 12/14/23 Albumin 3.2 gm/dl (3.4-5.0) L 12/14/23 Globulin 3.6 gm/dl (2.5-4.0) 12/14/23 Albumin/Globulin Ratio 0.9 (0.9-2) 12/14/23 Mg 1.9 mg/dl (1.7-2.4) 12/15/23 04:46 Calcium Level 8.8 mg/dl (8.6-10.3) 12/15/23 04:46 Franck Test Pass 12/15/23 04:07 Microbiology 12/08/23 20:23 Aerobic Blood Culture - Final Blood No growth in Aerobic bottle after 5 days. Anaerobic Blood Culture - Final No growth in Anaerobic bottle after 5 days. 12/08/23 20:36 Aerobic Blood Culture - Final Blood No growth in Aerobic bottle after 5 days. Anaerobic Blood Culture - Final Diagnostic Findings (Past 24 Hours) Chest X-Ray 12/14/23 16:59 XR chest 1V portable HISTORY: ETT tube placement COMPARISON: Chest 12/09/2023. FINDINGS: Endotracheal tube terminates 3.1 cm from the sobia. There are low lung volumes. Trace pleural effusions. No pneumothorax. Cardiomegaly and pulmonary edema persists. Bibasilar linear densities favor subsegmental atelectasis. IMPRESSION: 1. Endotracheal tube terminates 3.1 cm from the sobia. 2. Cardiomegaly and mild pulmonary edema again noted. ACT 112: Negative or not required by law. Electronically signed by: Obey Segovia M.D. 12/14/2023 5:24 PM Chest X-Ray 12/15/23 07:00 XR chest 1V portable CLINICAL HISTORY: Respiratory failure. COMPARISON STUDY: Chest CT January 12, 2023. Chest radiograph December 14, 2023. FINDINGS: The tip of the endotracheal tube is 4.2 cm above the sobia. Cardiomegaly is unchanged. There is no pneumothorax or pleural effusion. Mild pulmonary edema has improved. Low lung volumes are unchanged. Bilateral opacities persist. IMPRESSION: 1. Satisfactory positioning of the endotracheal tube. 2. Mild improvement in pulmonary edema. Persistent bibasilar opacities. ACT 112: Negative or not required by law. Electronically signed by: Thomas Monte M.D. 12/15/2023 7:16 AM I & O Totals 24 Hours 12/14/23 12/15/23 12/16/23 06:59 06:59 06:59 Intake Total 1769.167 / 1769.167 962.893 / 962.893 Output Total 2701 / 2701 1979 / 1979 Balance -931.833 / -931.833 -1017.107 / -1017.107 Cumulative 12/07/23 14:38 thru 12/15/23 06:00 Intake Total 26152.624 Output Total 92589 Balance -2954.376 RT Ventilator Mngmt (Last Documented) Ventilator Ordered Settings Ventilator Support Mode Assist Control 12/15/23 04:00 Respiratory Rate 22 12/15/23 06:00 Ventilator Tidal Volume 450 12/15/23 04:00 Setting Minute Ventilation 9 12/15/23 03:50 Ventilator Positive Pressure 8 12/15/23 04:00 Support Setting Positive End Expiratory 8 12/15/23 03:50 Pressure Fraction of Inspired Oxygen 40 12/15/23 04:00 Machine Comment changes made per ABG 12/14/23 18:22 Ventilator - PT Measurements Respiratory Rate 22 Exhaled Tidal Volume 450 Minute Ventilation 9 Peak Inspiratory Airway 22 Pressure Plateau Pressure 17 Respiratory Cycle Inspiratory: 1:2.9 Expiratory Ratio Inspiratory Phase Time 0.70 End-Tidal CO2 32 Static Lung Compliance 50.00 Dynamic Lung Compliance 32.14 Normal Static Lung Compliance 47.00 Patient Measurements Comment patient was admitted from the OR. Coding Level of Care Code 68672 SUB INP/OBS CARE 3/50MIN Diagnoses Endotracheally intubated Z97.8 Ischemic foot I99.8 Septic shock A41.9; R65.21 Bacteremia due to Staphylococcus R78.81; B95.8 RVF (right ventricular failure) I50.810 Acute on chronic respiratory failure with hypoxia J96.21 Respiratory failure complication: hypoxia PAD (peripheral artery disease) I73.9 Type 2 diabetes mellitus E11.9 Coronary artery disease I25.10 Hypertension I10 (6) Acute and chronic respiratory failure Respiratory failure complication: hypoxia Qualified Code(s): J96.21 - Acute and chronic respiratory failure with hypoxia
[2023-12-15] MEDS ORDERED: Nursing to Pharmacy Communication SCH (08:00)
[2023-12-15] MEDS: INSULIN ASPART PER UNIT CHARGE SC SCH (12:05)
--- NOTE | 2023-12-15 12:27 | Pharmacy Report ---
Pharmacy Glycemic Short Note 2 - Date of Service December 15, 2023 - Glycemic Short BSG Results (Last 24 hours): 12/14/23 12/14/23 12/14/23 18:23 20:48 21:06 Glucose 189 H POC Glucose 174 H 163 H 12/14/23 12/15/23 12/15/23 23:54 04:46 07:52 Glucose 152 H POC Glucose 164 H 121 H 12/15/23 11:31 Glucose POC Glucose 138 H OUTPATIENT ANTIDIABETIC REGIMEN: * Levemir 80 units SC BID * Glipizide 5 mg PO BID * Metformin 1000 mg PO BID * HbA1c: 8.1% (12/08/23) ASSESSMENT: 12/14: * BSGs acceptable over last 24 hrs * Diet to resume with lunch today, will wait to see how well diet is tolerated before escalating basal insulin doses 12/13: * Patient remains NPO- did adjust lantus slightly this morning- monitor fasting tomorrow 12/12: * BSGs have been stable past ~48 hours+. * Pt will be NPO after midnight tonight for R BKA tomorrow w/ Dr Greenberg. * Anticipate that current regimen will be appropriate, even while NPO. * Pharmacy will continue to follow and adjust regimen as indicated. 12/08: * Oliverio received 81 units of insulin yesterday, 70 basal + 11 bolus. BSGs were: [phone] mg/dL. * Fasting BSG down to 159 mg/dL this AM. Patient remains NPO today for surgery which is scheduled. Of note, he was NPO for all of yesterday as well. * Will adjust basal scale to only provide 30 or 40 units of insulin BID pending BSG. Since patient tolerated 70 units of basal yesterday while NPO, I am not concerned for hypoglycemia today as patient will likely be ordered a diet and start eating postoperatively. * No change to Novolog. * Remains on heparin drip, LR at 80 cc/hr, daptomycin, clindamycin and zosyn. PLAN FOR INPATIENT GLYCEMIC CONTROL: * Hold outpatient oral diabetes medications * Basal insulin * continue Lantus 15 units SC BID - reeval needs when diet advanced/tolerated * Bolus insulin * NovoLog per scale ACHS or Q6hrs while NPO * Goal Range: Low 110 mg/dL - High 140 mg/dL * Correction Factor: 15 mg/dL/unit * Nutritional / Prandial insulin per carb ratio of 1 unit per 5 grams CHO consumed
--- NOTE | 2023-12-15 13:00 | Surgery Progress Note ---
Date of Service December 15, 2023 Assessment & Plan (1) Gangrene due to arterial insufficiency: Plan: Doing well post op. BP much better and off the vent Can transfer to pcu Admission and Anticipated Discharge Date Admission Date: December 07, 2023 Subjective Sitting in chair with no complaints. Physical Exam Constitutional: WD/WN, vitals as above Respiratory: normal respiratory effort; no respiratory distress Cardiovascular: RRR, no murmur, no edema Skin: + incision (stump dressing dry and clean ) Neurologic: CN's II-XI intact bilaterally and moves all extremities Psychiatric: Orientation: alert and oriented x 3 Results & Data Vital Signs (Past 12 Hours) Vital Signs Temp Pulse Resp BP Pulse Ox O2 Del Method O2 Flow Rate 12/15/23 08:30 37.5 C 75 13 94 Nasal Cannula 3 12/15/23 08:30 153/88 H 12/15/23 08:00 3 12/15/23 08:00 37.5 C 84 18 12/15/23 08:00 149/83 H 12/15/23 07:30 129/82 12/15/23 07:30 37.4 C 71 13 93 Nasal Cannula 3 12/15/23 07:00 37.4 C 73 16 96 12/15/23 07:00 129/72 12/15/23 06:00 37.4 C 69 22 92 12/15/23 06:00 111/63 12/15/23 05:00 117/65 12/15/23 05:00 37.3 C 71 22 92 12/15/23 04:00 37.3 C 68 22 92 12/15/23 04:00 101/64 12/15/23 04:00 12/15/23 03:50 62 22 92 12/15/23 03:00 101/62 12/15/23 03:00 37.2 C 67 22 93 12/15/23 02:45 37.1 C 66 22 93 12/15/23 02:45 100/63 12/15/23 02:15 37.1 C 65 22 93 12/15/23 02:15 96/60 L FiO2 12/15/23 08:30 12/15/23 08:30 12/15/23 08:00 12/15/23 08:00 12/15/23 08:00 12/15/23 07:30 12/15/23 07:30 12/15/23 07:00 12/15/23 07:00 12/15/23 06:00 12/15/23 06:00 12/15/23 05:00 12/15/23 05:00 12/15/23 04:00 12/15/23 04:00 12/15/23 04:00 40 12/15/23 03:50 40 12/15/23 03:00 12/15/23 03:00 12/15/23 02:45 12/15/23 02:45 12/15/23 02:15 12/15/23 02:15
--- NOTE | 2023-12-15 13:30 | Infectious Disease Progress Nt ---
Date of Service December 15, 2023 Assessment & Plan (1) Septic shock: (2) Endotracheally intubated: (3) Bacteremia due to Staphylococcus: (4) Pressure ulcer of right foot, unstageable: Plan 68 yo M with h/o PVD, CKD, COPD, DM, s/p right 5th toe amputation who was admitted on 12/06 with poor blood flow to right foot. Found to have concurrent cellulitis and bacteremia which ID consulted. Per patient and EMR, he was seen at wound care clinic d/t poor foot flow to right. Patient has a h/o PVD and underwent stenting previously. He has had I+D of Right foot in past and 5th digit amputation. He developed 2 ulcers in his leg. He underwent angioplasty w/ stenting of right popliteal artery and percutaneous transluminal angioplasty of proximal right superficial femoral artery on 10/27/23. His foot appeared to be healing but recently redness and pains started. Was not on antibiotics prior to admission. On admission 12/06, WBC 19, Cr 1.5 CTA proximal to mid right popliteal artery is occluded which includes the popliteal artery stent, high-grade stenosis within the distal popliteal artery, severe stenosis within a short segment of the mid posterior tibial artery. Imaging also noted Focal irregularity of the skin surface within the dorsum of the midfoot which may represent a skin ulceration or small laceration. There is a small amount of subcutaneous gas tracking superiorly along the anterior aspect of the mid to distal right lower leg. This is likely related to the skin ulceration/injury at the midfoot. A gas-forming organism is not excluded. No loculated fluid collections to suggest an abscess. Patient was started on daptomycin, clindamycin and Zosyn He was doing well. Patient went to OR 12/08 for Right lower extremity diagnostic angiogram, RLE open thrombectomy of SFA and popliteal artery Attempted revascularization of the right lower extremity which was unsuccessful. Post op he was extubated but immediately intubated again, patient hypotensive, TF to ICU on pressors. Suspicious of cardiac v pulm. Has since been extubated and on NC . Angio demonstrated no distal bypass targets for outflow. Per surgery "Foot is ischemic and appears necrotic" . CONS in blood cx is likely a contaminant. Repeat BC clear He is s p R BKA on 12/13 . Post OR he was was hypotensive and required Ross- Synephrine and unable to come off vent ---> ICU . He was weaned off pressors that same night and self extubated in am He is on RA now. He is afebrile and feels well. Brief op report reviewed. No mention of purulence. Path pending. Microbiology: Blood cultures 12/07/202309/11 bottles coagulase negative staph, not lugdunensis Blood cultures 12/08/2023 no growth sputum cultures 12/10/2023, rare yeast not Kristal albicans Antibiotics Vancomycin 12/06 Daptomycin Clindamycin ( autostop) Zosyn ( autostop) #Shock, resolved #Resp failure, resolved #Severe PVD, sp BKA # Coag neg staph bacteremia. Likely contaminant. Recommendations: - Zosyn and Clindamycin automatically completed last night post procedure and fell off list. - Will dc daptomycin as CONS in blood is likely a contaminant -Will start Augmentin 875/125 an doxycycline to complete 5 day of abx post amputation.EOT 12/18 Likely has source control -Follow up pathology to ensure no residual infection, if evidence of infection, may need to restart IV abx ID will sign off. Please call with question or if pathology shows residual infection Megan Mclaughlin MD, MPH Infectious Disease [facility] Call [phone] with questions Admission and Anticipated Discharge Date Admission Date: December 07, 2023 Subjective Subsequent visit was provided via telemedicine using two-way real-time interactive telecommunication between the patient and the telemedicine provider. For the duration of the visit, the provider was performing the assessment from a different facility than the patient. This includesuse of bluetooth stethoscope forauscultationperformed by the telepresenter that the telemedicine provider can hear if described in the physical exam. Christian Education Director contact information: Please call [facility] Center [phone]. (Phone Number For Physician Use Only) After establishing a telemedicine visit, patient was: Patient was verified with two unique identifiers and Patient/authorized rep acknowledged consent and understanding Time Spent with Patient: Subsequent => 25 min He is sp RBKA Post OR he was was hypotensive and required Ross-Synephrine and unable to come off vent ---> ICU . He was weaned off pressors last night and self extubated this am He is on RA now. He is afebrile and feels well . WBc trending down . It appears that clindamycin and Zosyn fell off his med list last night .He remains on Dapto. Physical Exam Physical Exam: Gen- NAD HEENT- Anicteric sclera LUNG- NO increased work of breathing Ext- R BKA, stump dressed. Dressing dry. Upper thigh incision C/D/I Neuro-AAO*3 Psych- Cooperative, Appropriate Results & Data Vital Signs (Past 12 Hours) Vital Signs Temp Pulse Resp BP Pulse Ox O2 Del Method O2 Flow Rate 12/15/23 08:30 37.5 C 75 13 94 Nasal Cannula 3 12/15/23 08:30 153/88 H 12/15/23 08:00 3 12/15/23 08:00 37.5 C 84 18 12/15/23 08:00 149/83 H 12/15/23 07:30 129/82 12/15/23 07:30 37.4 C 71 13 93 Nasal Cannula 3 12/15/23 07:00 37.4 C 73 16 96 12/15/23 07:00 129/72 12/15/23 06:00 37.4 C 69 22 92 12/15/23 06:00 111/63 12/15/23 05:00 117/65 12/15/23 05:00 37.3 C 71 22 92 12/15/23 04:00 37.3 C 68 22 92 12/15/23 04:00 101/64 12/15/23 04:00 12/15/23 03:50 62 22 92 12/15/23 03:00 101/62 12/15/23 03:00 37.2 C 67 22 93 12/15/23 02:45 37.1 C 66 22 93 12/15/23 02:45 100/63 12/15/23 02:15 37.1 C 65 22 93 12/15/23 02:15 96/60 L FiO2 12/15/23 08:30 12/15/23 08:30 12/15/23 08:00 12/15/23 08:00 12/15/23 08:00 12/15/23 07:30 12/15/23 07:30 12/15/23 07:00 12/15/23 07:00 12/15/23 06:00 12/15/23 06:00 12/15/23 05:00 12/15/23 05:00 12/15/23 04:00 12/15/23 04:00 12/15/23 04:00 40 12/15/23 03:50 40 12/15/23 03:00 12/15/23 03:00 12/15/23 02:45 12/15/23 02:45 12/15/23 02:15 12/15/23 02:15 Laboratory Results Short CBC 12/14/23 12/15/23 Range/Units 21:06 04:46 WBC 23.77 H 14.28 H (4.8-10.8) K/ul Hgb 9.4 L 9.3 L (14.0-18.0) g/dl Hct 31.0 L 30.0 L (42.0-52.0) % Plt Count 556 H 419 H (130-400) K/uL BMP 12/14/23 12/15/23 21:06 04:46 Sodium 134 L 135 L Potassium 4.7 4.8 Chloride 97 L 98 Carbon Dioxide 27 29 BUN 24 H 27 H Creatinine 0.96 0.90 Glucose 189 H 152 H Calcium 8.8 8.8 Liver Function 12/14/23 Range/Units 21:06 Total Bilirubin 0.5 (0.2-1.0) mg/dl AST 16 (13-39) U/L ALT 15 (7-52) U/L Alkaline Phosphatase 84 (34-104) U/L Albumin 3.2 L (3.4-5.0) gm/dl Diagnostic Findings Microbiology 12/08/23 20:23 Blood Aerobic Blood Culture - Final No growth in Aerobic bottle after 5 days. 12/08/23 20:23 Blood Anaerobic Blood Culture - Final No growth in Anaerobic bottle after 5 days. 12/08/23 20:36 Blood Aerobic Blood Culture - Final No growth in Aerobic bottle after 5 days. 12/08/23 20:36 Blood Anaerobic Blood Culture - Final 12/07/23 16:53 Blood Aerobic Blood Culture - Final No growth in Aerobic bottle after 5 days. 12/07/23 16:53 Blood Anaerobic Blood Culture - Final Coag neg staph not lugdunensis 12/07/23 16:50 Blood Aerobic Blood Culture - Final No growth in Aerobic bottle after 5 days. 12/07/23 16:50 Blood Anaerobic Blood Culture - Final Coag neg staph not lugdunensis 12/10/23 09:32 Sputum,Vent Suction Gram Stain - Final 12/10/23 09:32 Sputum,Vent Suction Sputum Culture - Final Yeast not Kristal albicans/dub Medications Administered Home Medications Medication Instructions Recorded Confirmed Last Taken aspirin 81 mg tablet,delayed 81 mg PO QAM 04/02/21 12/15/23 10/27/23 08:00 release furosemide 40 mg tablet 40 mg PO QAM 04/02/21 12/15/23 10/27/23 08:00 insulin detemir U-100 100 unit/mL 60 unit subcut BID 04/02/21 12/14/23 10/27/23 08:00 (3 mL) subcutaneous pen (Levemir FlexTouch U-100 Insulin) lisinopril 30 mg tablet 30 mg PO QAM 04/02/21 12/15/23 10/27/23 08:00 metformin 1,000 mg tablet 1,000 mg PO BID 04/02/21 12/15/23 10/25/23 20:00 metoprolol succinate 50 mg 50 mg PO QAM 04/02/21 12/15/23 10/27/23 08:00 tablet,extended release 24 hr nitroglycerin 0.4 mg sublingual 0.4 mg buccal DIRECTED PRN 04/02/21 12/15/23 Unknown tablet Chest Pain rosuvastatin 10 mg tablet (Crestor) 10 mg PO DAILY 04/02/21 12/15/23 10/27/23 0 8:00 clopidogrel 75 mg tablet 75 mg PO DAILY 01/12/23 12/15/23 10/27/23 08:00 cyclobenzaprine 5 mg tablet 5 mg PO TID 01/12/23 12/15/23 10/26/23 20:00 nortriptyline 25 mg capsule 25 mg PO HS 01/12/23 12/15/23 10/26/23 20:00 pantoprazole 40 mg tablet,delayed 40 mg PO DAILY 01/12/23 12/15/23 10/27/23 08:00 release (Protonix) glipizide 5 mg tablet 5 mg PO BID 12/15/23 12/15/23 Unknown insulin glargine 100 unit/mL (3 See Rx Instructions .Route .COMPLEX 12/15/23 12/15/23 Unknown mL) subcutaneous pen (Lantus Solostar U-100 Insulin) Active Medications Generic Name Dose Route Start Last Admin Trade Name Freq PRN Reason Stop Dose Admin Acetaminophen 1,000 mg 12/15/23 16:00 12/15/23 15:08 Acetaminophen 500 Mg Tab PO 01/14/24 15:59 1,000 mg Q8H WENDY Administration Aspirin 81 mg 12/08/23 09:00 12/15/23 08:35 Aspirin 81 Mg Ectab PO 01/07/24 08:59 81 mg QAM WENDY Administration Daptomycin 500 mg/ Syringe 10 mls @ 5 mls/min 12/09/23 22:00 12/14/23 23:58 IV 12/21/23 21:59 5 mls/min Q24H WENDY Administration Protocol Parenteral Electrolytes 1,000 mls @ 80 mls/hr 12/14/23 20:45 12/15/23 09:13 Plasma-Lyte A Ph 7.4 IV 01/13/24 20:44 80 mls/hr .[id number] WENDY Administration Insulin Aspart 0 units 12/15/23 11:30 12/15/23 18:32 Insulin Aspart Per Unit Charge SC 01/14/24 00:00 5 units ACHS WENDY Administration Protocol Insulin Glargine 15 units 12/14/23 09:00 12/15/23 08:37 Lantus Per Unit Charge SC 01/11/24 20:59 15 units BID WENDY Administration Metoprolol Succinate 50 mg 12/08/23 09:00 12/14/23 07:48 Metoprolol Succ 50mg Ext Rel Tab PO 01/07/24 08:59 50 mg QAM WENDY Administration Nortriptyline HCl 25 mg 12/07/23 22:00 12/14/23 19:40 Nortriptyline Hcl 25 Mg Cap PO 01/06/24 21:59 Not Given HS WENDY Oxycodone HCl 5 mg 12/07/23 20:54 12/15/23 15:07 Oxycodone Hcl Ir 5 Mg Tab (Immediate Release) PO 12/21/23 20:53 5 mg Q4H PRN Administration MODERATE Pain (4,5,6) & Pre PT Pantoprazole Sodium 40 mg 12/08/23 09:00 12/15/23 08:35 Pantoprazole 40 Mg Tab PO 01/07/24 08:59 40 mg DAILY WENDY Administration
--- NOTE | 2023-12-15 14:25 | Hospitalist Progress Note ---
Date of Service December 15, 2023 Assessment & Plan (1) Septic shock: Plan: Patient has staph bacteremia. Blood culture from 12/06 growing Staphylococcus Source is his foot. Shock is resolved Not on pressors anymore There were initial concerns of gas gangrene/necrotizing fasciitis however clinically did not correlate Moreover cellulitis seems to be improving with IV antibiotics Infectious disease on board Improving TTE ruled out vegetation Repeat blood cultures ordered 12/07. So far negative for 48 hours Currently on IV daptomycin. Likely will needed for 5 more days now that he had amputation done and the source is removed. ID on board (2) Ischemic foot: Plan: Occluded right popliteal artery Failed attempt of thrombectomy 12/08 Right BKA done 12/13 Severe peripheral vascular disease (3) Cellulitis of foot, right: Plan: Please see problem #2 Cellulitis improving (4) Acute and chronic respiratory failure: Plan: He was extubated in the OR 12/08, extubated 12/09. After right BKA, he remained intubated again on 12/13. Extubated 12/14. 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 (6) Type 2 diabetes mellitus: Plan: A1c 8.1 Outpatient on Levemir 60 units BID, Novolog 6 units AC, glyburide Consult pharmacy for glycemic control (7) BETTE (obstructive sleep apnea): Plan: Not on CPAP, on chronic O2 (8) Chronic respiratory failure: Plan: Chronic 4LPM O2 (9) CHF (congestive heart failure): Plan: Patient has CHFpEF Currently euvolemic Furosemide was being held pre-operatively Patient got Lasix on 12/09 as chest x-ray showed fluid overload (10) Hypertension: Plan: Continue metoprolol succinate Hold lisinopril, furosemide perioperatively (11) Pressure ulcer of right foot, unstageable: (12) Occlusion of right popliteal artery: (13) Bacteremia due to Staphylococcus: Plan: Foot source Infectious disease involved Continue IV antibiotics Admission and Anticipated Discharge Date Admission Date: December 07, 2023 Subjective Patient had right BKA 12/13. Was in the ICU after the surgery overnight intubated. This morning he was extubated. He is ready to transfer out of the ICU. The patient is awake and alert. He is conversant. He complains of some mild pain at the surgical site. Denies chest pain or shortness of breath Review of Systems Review of Systems: All systems reviewed & are unremarkable except as noted in Subjective Physical Exam Physical Exam: General: Awake, conversant. Heart: S1, S2/regular rate and rhythm, no murmur rubs or gallops Lungs: Clear to auscultation bilaterally. Normal effort Abdomen: Soft/nontender/nondistended. No hepatosplenomegaly. Positive bowel sounds Extremities: No clubbing/cyanosis. Status post right BKA. Dressing on stump. Behavior: Appropriate, cooperative Results & Data Results & Data Vital Signs (Past 12 Hours) Vital Signs Temp Pulse Resp BP Pulse Ox O2 Del Method O2 Flow Rate 12/15/23 08:30 37.5 C 75 13 94 Nasal Cannula 3 12/15/23 08:30 153/88 H 12/15/23 08:00 3 12/15/23 08:00 37.5 C 84 18 12/15/23 08:00 149/83 H 12/15/23 07:30 129/82 12/15/23 07:30 37.4 C 71 13 93 Nasal Cannula 3 12/15/23 07:00 37.4 C 73 16 96 12/15/23 07:00 129/72 12/15/23 06:00 37.4 C 69 22 92 12/15/23 06:00 111/63 12/15/23 05:00 117/65 12/15/23 05:00 37.3 C 71 22 92 12/15/23 04:00 37.3 C 68 22 92 12/15/23 04:00 101/64 12/15/23 04:00 12/15/23 03:50 62 22 92 12/15/23 03:00 101/62 12/15/23 03:00 37.2 C 67 22 93 12/15/23 02:45 37.1 C 66 22 93 12/15/23 02:45 100/63 FiO2 12/15/23 08:30 12/15/23 08:30 12/15/23 08:00 12/15/23 08:00 12/15/23 08:00 12/15/23 07:30 12/15/23 07:30 12/15/23 07:00 12/15/23 07:00 12/15/23 06:00 12/15/23 06:00 12/15/23 05:00 12/15/23 05:00 12/15/23 04:00 12/15/23 04:00 12/15/23 04:00 40 12/15/23 03:50 40 12/15/23 03:00 12/15/23 03:00 12/15/23 02:45 12/15/23 02:45 Laboratory Results Abnormal lab results 12/14/23 12/14/23 12/14/23 Range/Units 17:59 18:23 20:48 WBC (4.8-10.8) K/ul RBC (4.70-6.10) M/uL Hgb (14.0-18.0) g/dl POC Hgb 11.6 L (14.0-18.0) g/dl Hct (42.0-52.0) % POC Hct 34 L (42-52) % MCHC (32.0-36.0) g/dL RDW Std Deviation (36.4-46.3) fL RDW Coeff of Larry (11.5-14.5) % Plt Count (130-400) K/uL Neut # (Auto) (1.40-6.50) K/uL [place] # (Auto) (0.11-0.59) K/uL Immature Gran # (Auto) (0.01-0.20) K/uL POC pH 7.32 L (7.35-7.45) POC pCO2 59 H (35-46) mmHg POC pO2 70 L (80-95) mmHg POC HCO3 30 H (19-24) rubia/L POC Total CO2 32 H (24-31) mmol/L POC Base Excess 4.0 H (-9-1.8) rubia/L ABG pH (Temp Correct) 7.298 L (7.35-7.45) ABG pCO2 (Temp Corrct 62 H (35-46) mmHg POC Sodium 132 L (135-144) mmol/L Sodium (136-145) mmol/L Chloride (98-107) mmol/L BUN (6-23) mg/dl BUN/Creatinine Ratio (10-20) Glucose (70-99(Fasting)) mg/dl POC Glucose 174 H 163 H (70-99) mg/dl Albumin (3.4-5.0) gm/dl 12/14/23 12/14/23 12/14/23 Range/Units 20:57 21:06 23:54 WBC 23.77 H (4.8-10.8) K/ul RBC 3.55 L (4.70-6.10) M/uL Hgb 9.4 L (14.0-18.0) g/dl POC Hgb 11.2 L (14.0-18.0) g/dl Hct 31.0 L (42.0-52.0) % POC Hct 33 L (42-52) % MCHC 30.3 L (32.0-36.0) g/dL RDW Std Deviation 49.3 H (36.4-46.3) fL RDW Coeff of Larry 15.4 H (11.5-14.5) % Plt Count 556 H (130-400) K/uL Neut # (Auto) 20.85 H (1.40-6.50) K/uL [place] # (Auto) 0.81 H (0.11-0.59) K/uL Immature Gran # (Auto) 0.31 H (0.01-0.20) K/uL POC pH (7.35-7.45) POC pCO2 48 H (35-46) mmHg POC pO2 78 L (80-95) mmHg POC HCO3 28 H (19-24) rubia/L POC Total CO2 (24-31) mmol/L POC Base Excess 3.0 H (-9-1.8) rubia/L ABG pH (Temp Correct) (7.35-7.45) ABG pCO2 (Temp Corrct 48 H (35-46) mmHg POC Sodium 133 L (135-144) mmol/L Sodium 134 L (136-145) mmol/L Chloride 97 L (98-107) mmol/L BUN 24 H (6-23) mg/dl BUN/Creatinine Ratio 25.0 H (10-20) Glucose 189 H (70-99(Fasting)) mg/dl POC Glucose 164 H (70-99) mg/dl Albumin 3.2 L (3.4-5.0) gm/dl 12/15/23 12/15/23 12/15/23 Range/Units 04:07 04:46 07:52 WBC 14.28 H (4.8-10.8) K/ul RBC 3.54 L (4.70-6.10) M/uL Hgb 9.3 L (14.0-18.0) g/dl POC Hgb 9.9 L (14.0-18.0) g/dl Hct 30.0 L (42.0-52.0) % POC Hct 29 L (42-52) % MCHC 31.0 L (32.0-36.0) g/dL RDW Std Deviation 47.7 H (36.4-46.3) fL RDW Coeff of Larry 15.5 H (11.5-14.5) % Plt Count 419 H (130-400) K/uL Neut # (Auto) (1.40-6.50) K/uL [place] # (Auto) (0.11-0.59) K/uL Immature Gran # (Auto) (0.01-0.20) K/uL POC pH (7.35-7.45) POC pCO2 (35-46) mmHg POC pO2 65 L (80-95) mmHg POC HCO3 29 H (19-24) rubia/L POC Total CO2 (24-31) mmol/L POC Base Excess 5.0 H (-9-1.8) rubia/L ABG pH (Temp Correct) (7.35-7.45) ABG pCO2 (Temp Corrct (35-46) mmHg POC Sodium 133 L (135-144) mmol/L Sodium 135 L (136-145) mmol/L Chloride (98-107) mmol/L BUN 27 H (6-23) mg/dl BUN/Creatinine Ratio 30.0 H (10-20) Glucose 152 H (70-99(Fasting)) mg/dl POC Glucose 121 H (70-99) mg/dl Albumin (3.4-5.0) gm/dl 12/15/23 Range/Units 11:31 WBC (4.8-10.8) K/ul RBC (4.70-6.10) M/uL Hgb (14.0-18.0) g/dl POC Hgb (14.0-18.0) g/dl Hct (42.0-52.0) % POC Hct (42-52) % MCHC (32.0-36.0) g/dL RDW Std Deviation (36.4-46.3) fL RDW Coeff of Larry (11.5-14.5) % Plt Count (130-400) K/uL Neut # (Auto) (1.40-6.50) K/uL [place] # (Auto) (0.11-0.59) K/uL Immature Gran # (Auto) (0.01-0.20) K/uL POC pH (7.35-7.45) POC pCO2 (35-46) mmHg POC pO2 (80-95) mmHg POC HCO3 (19-24) rubia/L POC Total CO2 (24-31) mmol/L POC Base Excess (-9-1.8) rubia/L ABG pH (Temp Correct) (7.35-7.45) ABG pCO2 (Temp Corrct (35-46) mmHg POC Sodium (135-144) mmol/L Sodium (136-145) mmol/L Chloride (98-107) mmol/L BUN (6-23) mg/dl BUN/Creatinine Ratio (10-20) Glucose (70-99(Fasting)) mg/dl POC Glucose 138 H (70-99) mg/dl Albumin (3.4-5.0) gm/dl Diagnostic Findings Chest X-Ray 12/14/23 16:59 XR chest 1V portable HISTORY: ETT tube placement COMPARISON: Chest 12/09/2023. FINDINGS: Endotracheal tube terminates 3.1 cm from the sobia. There are low lung volumes. Trace pleural effusions. No pneumothorax. Cardiomegaly and pulmonary edema persists. Bibasilar linear densities favor subsegmental atelectasis. IMPRESSION: 1. Endotracheal tube terminates 3.1 cm from the sobia. 2. Cardiomegaly and mild pulmonary edema again noted. ACT 112: Negative or not required by law. Electronically signed by: Obey Segovia M.D. 12/14/2023 5:24 PM Chest X-Ray 12/15/23 07:00 XR chest 1V portable CLINICAL HISTORY: Respiratory failure. COMPARISON STUDY: Chest CT January 12, 2023. Chest radiograph December 14, 2023. FINDINGS: The tip of the endotracheal tube is 4.2 cm above the sobia. Cardiomegaly is unchanged. There is no pneumothorax or pleural effusion. Mild pulmonary edema has improved. Low lung volumes are unchanged. Bilateral opacities persist. IMPRESSION: 1. Satisfactory positioning of the endotracheal tube. 2. Mild improvement in pulmonary edema. Persistent bibasilar opacities. ACT 112: Negative or not required by law. Electronically signed by: Thomas Monte M.D. 12/15/2023 7:16 AM PG Care Time/CCT Total # of Minutes Spent Total Time Spent with Patient: Total time spent is greater than 50% in coordination of care (as documented) at patient's floor/unit and/or counseling patient: Coding Level of Care Code 34477 SUB INP/OBS CARE 2/35MIN Diagnoses Septic shock A41.9; R65.21 Ischemic foot I99.8 Cellulitis of foot, right L03.115 Acute on chronic respiratory failure with hypoxia J96.21 Respiratory failure complication: hypoxia PAD (peripheral artery disease) I73.9 Type 2 diabetes mellitus E11.9 BETTE (obstructive sleep apnea) G47.33 Chronic respiratory failure J96.10 CHF (congestive heart failure) I50.9 Hypertension I10 Pressure ulcer of right foot, unstageable L89.890 Occlusion of right popliteal artery I70.201 Bacteremia due to Staphylococcus R78.81; B95.8 (4) Acute and chronic respiratory failure Respiratory failure complication: hypoxia Qualified Code(s): J96.21 - Acute and chronic respiratory failure with hypoxia
[2023-12-15] MEDS: ACETAMINOPHEN 500 MG TAB PO SCH (15:08)
[2023-12-15] MEDS: AMOXICILLIN/CLAVULANATE 875 MG TAB PO SCH (21:50)
[2023-12-15] MEDS: DOXYCYCLINE HYCLATE 100 MG CAP PO SCH (21:50)
[2023-12-16 08:22] LABS: Hematocrit (blood only) 32.5 % (42.0-52.0); Hemoglobin 9.9 g/dl (14.0-18.0); Mean Corpuscular Hemoglobin 26.3 pg (25.0-34.0); Mean Corpuscular Hgb Conc 30.5 g/dL (32.0-36.0); Mean Corpuscular Volume 86.4 fL (80.0-100.0); Mean Platelet Volume 10.1 fL (9.4-12.4); Platelet Count 422 K/uL (130-400); RDW Coefficient of Variation 15.6 % (11.5-14.5); RDW Standard Deviation 49.3 fL (36.4-46.3); Red Blood Count 3.76 M/uL (4.70-6.10); White Blood Count 11.71 K/ul (4.8-10.8)
[2023-12-16 09:09] LABS: Calcium 8.6 mg/dl (8.6-10.3); Creatinine Clr Calc Pharmacy 103.2 ml/min; Est GFR (African American) 106.4 ml/min; Est GFR (Non-African American) 91.8 ml/min; Phosphorus 2.5 mg/dl (2.5-4.9); Potassium 4.5 mmol/L (3.5-5.1)
--- NOTE | 2023-12-16 16:13 | Hospitalist Progress Note ---
Date of Service December 16, 2023 Assessment & Plan (1) Septic shock: Plan: Patient initial Blood Cx demonstrated coag neg Staphylococcus, as per ID, felt to be a contaminant and IV abx stopped, remains on Augmentin and Doxy Source is his foot. Shock is resolved Not on pressors anymore There were initial concerns of gas gangrene/necrotizing fasciitis however clinically did not correlate Moreover cellulitis seems to be improving with IV antibiotics Infectious disease input appreciated Improving TTE ruled out vegetation Repeat blood cultures ordered 12/07. 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 After right BKA, he remained intubated again on 12/13. Extubated 12/14. 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 (6) Type 2 diabetes mellitus: Plan: A1c 8.1 Outpatient on Levemir 60 units BID, Novolog 6 units AC, glyburide Consult pharmacy for glycemic control (7) BETTE (obstructive sleep apnea): Plan: Not on CPAP, on chronic O2 (8) Chronic respiratory failure: Plan: Chronic 4LPM O2 (9) CHF (congestive heart failure): Plan: Patient has CHFpEF Currently euvolemic Furosemide was being held pre-operatively Patient got Lasix on 12/09 as chest x-ray showed fluid overload (10) Hypertension: Plan: Continue metoprolol succinate Hold lisinopril, furosemide perioperatively (11) Pressure ulcer of right foot, unstageable: (12) Occlusion of right popliteal artery: Present on Admission?: Yes (13) Bacteremia due to Staphylococcus: Plan: Infectious disease believes it is a contaminant Admission and Anticipated Discharge Date Admission Date: December 07, 2023 Subjective He is sp RBKA Post OR he was was hypotensive and required Ross-Synephrine and unable to come off vent ---> ICU . He was weaned off pressors and self extubat ed. Currently 98% on nasal canula. He is afebrile and feels well . WBC trending down . It appears that clindamycin and Zosyn fell off his med list. He remains on Augmentin and Doxy Review of Systems Review of Systems: denies significant pain Physical Exam Physical Exam: General: Awake, conversant. Heart: S1, S2/regular rate and rhythm, no murmur rubs or gallops Lungs: Clear to auscultation bilaterally. Normal effort Abdomen: Soft/nontender/nondistended. No hepatosplenomegaly. Positive bowel sounds Extremities: No clubbing/cyanosis. Status post right BKA. Dressing on stump. Behavior: Appropriate, cooperative Results & Data Results & Data Vital Signs (Past 12 Hours) Vital Signs Temp Pulse Resp BP BP Pulse Ox O2 Del Method 12/16/23 14:14 36.4 C L 62 18 130/77 98 Nasal Cannula 12/16/23 09:28 Nasal Cannula 12/16/23 08:04 37.2 C 83 16 163/93 H 94 Nasal Cannula O2 Flow Rate 12/16/23 14:14 3 12/16/23 09:28 3 12/16/23 08:04 2 Laboratory Results WBC 23.77-->14.28-->11.71 PG Care Time/CCT Total # of Minutes Spent Total Time Spent with Patient: Total time spent is greater than 50% in coordination of care (as documented) at patient's floor/unit and/or counseling patient: Coding Level of Care Code 15541 SUB INP/OBS CARE 2/35MIN Diagnoses Septic shock A41.9; R65.21 Ischemic foot I99.8 Cellulitis of foot, right L03.115 Acute on chronic respiratory failure with hypoxia J96.21 Respiratory failure complication: hypoxia PAD (peripheral artery disease) I73.9 Type 2 diabetes mellitus with diabetic peripheral angiopathy and gangrene, with long-term current use of insulin E11.52; Z79.4 Diabetes mellitus buttermaker helper insulin use: with buttermaker helper use Diabetes mellitus complication status: with circulatory complication BETTE (obstructive sleep apnea) G47.33 Chronic respiratory failure, unspecified whether with hypoxia or hypercapnia J96.10 Respiratory failure complication: unspecified whether with hypoxia or hypercapnia Chronic diastolic congestive heart failure I50.32 Heart failure type: diastolic Heart failure chronicity: chronic Primary hypertension I10 Hypertension type: primary hypertension Pressure ulcer of right foot, unstageable L89.890 Occlusion of right popliteal artery I70.201 Bacteremia due to Staphylococcus R78.81; B95.8 (4) Acute and chronic respiratory failure Respiratory failure complication: hypoxia Qualified Code(s): J96.21 - Acute and chronic respiratory failure with hypoxia (6) Type 2 diabetes mellitus Diabetes mellitus long-term insulin use: with buttermaker helper use Diabetes mellitus complication status: with circulatory complication Qualified Code(s): E11.52 - Type 2 diabetes mellitus with diabetic peripheral angiopathy with gangrene; 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
[2023-12-17 07:54] LABS: Hematocrit (blood only) 32.7 % (42.0-52.0); Hemoglobin 9.8 g/dl (14.0-18.0); Mean Corpuscular Hemoglobin 26.3 pg (25.0-34.0); Mean Corpuscular Volume 87.7 fL (80.0-100.0); Mean Platelet Volume 10.2 fL (9.4-12.4); Platelet Count 426 K/uL (130-400); RDW Coefficient of Variation 15.5 % (11.5-14.5); RDW Standard Deviation 49.6 fL (36.4-46.3); Red Blood Count 3.73 M/uL (4.70-6.10); White Blood Count 10.79 K/ul (4.8-10.8)
[2023-12-17 08:29] LABS: BUN Creatinine Ratio 21.1 (10-20); Calcium 8.9 mg/dl (8.6-10.3); Creatinine Clr Calc Pharmacy 108.2 ml/min; Est GFR (African American) 108.7 ml/min; Est GFR (Non-African American) 93.7 ml/min; Magnesium 2.1 mg/dl (1.7-2.4); Phosphorus 2.9 mg/dl (2.5-4.9); Potassium 4.4 mmol/L (3.5-5.1)
--- NOTE | 2023-12-17 15:12 | Hospitalist Progress Note ---
Date of Service December 17, 2023 Assessment & Plan (1) Septic shock: Plan: Patient initial Blood Cx demonstrated coag neg Staphylococcus, as per ID, felt to be a contaminant and IV abx stopped, remains on Augmentin and Doxy Source is his foot. Shock is resolved Not on pressors anymore There were initial concerns of gas gangrene/necrotizing fasciitis however clinically did not correlate Moreover cellulitis seems to be improving with IV antibiotics Infectious disease input appreciated Improving TTE ruled out vegetation Repeat blood cultures ordered 12/07. 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 After right BKA, he remained intubated again on 12/13. Extubated 12/14. 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 (6) Type 2 diabetes mellitus: Plan: A1c 8.1 Outpatient on Levemir 60 units BID, Novolog 6 units AC, glyburide Consult pharmacy for glycemic control glu in the 110-170 range (7) BETTE (obstructive sleep apnea): Plan: Not on CPAP, on chronic O2 (8) Chronic respiratory failure: Plan: Chronic 4LPM O2 (9) CHF (congestive heart failure): Plan: Patient has CHFpEF Currently euvolemic Furosemide was being held pre-operatively Patient got Lasix on 12/09 as chest x-ray showed fluid overload (10) Hypertension: Plan: Continue metoprolol succinate Hold lisinopril, furosemide perioperatively (11) Pressure ulcer of right foot, unstageable: (12) Occlusion of right popliteal artery: (13) Bacteremia due to Staphylococcus: Plan: Infectious disease believes it is a contaminant Admission and Anticipated Discharge Date Admission Date: December 07, 2023 Subjective He is sp RBKA Post OR he was was hypotensive and required Ross-Synephrine and unable to come off vent ---> ICU . He was weaned off pressors and self extubated. Currently 98% on nasal canula. He is afebrile and feels well . WBC trending down . It appears that clindamycin and Zosyn fell off his med list. He remains on Augmentin and Doxy He is awake and alert and in good spirits Physical Exam Physical Exam: General: Awake, conversant. Heart: S1, S2/regular rate and rhythm, no murmur rubs or gallops Lungs: Clear to auscultation bilaterally. Normal effort Abdomen: Soft/nontender/nondistended. No hepatosplenomegaly. Positive bowel sounds Extremities: No clubbing/cyanosis. Status post right BKA. Dressing on stump. Behavior: Appropriate, cooperative Results & Data Results & Data Vital Signs (Past 12 Hours) Vital Signs Temp Pulse Resp BP BP Pulse Ox O2 Del Method 12/17/23 14:59 36.7 C 71 16 134/78 92 Room Air 12/17/23 07:59 Nasal Cannula 12/17/23 07:40 36.8 C 65 16 155/86 H 95 Nasal Cannula O2 Flow Rate 12/17/23 14:59 12/17/23 07:59 3 12/17/23 07:40 2 PG Care Time/CCT Total # of Minutes Spent Total Time Spent with Patient: Total time spent is greater than 50% in coordination of care (as documented) at patient's floor/unit and/or counseling patient: Coding Level of Care Code 94733 SUB INP/OBS CARE 2/35MIN Diagnoses Septic shock A41.9; R65.21 Ischemic foot I99.8 Cellulitis of foot, right L03.115 Acute on chronic respiratory failure with hypoxia J96.21 Respiratory failure complication: hypoxia PAD (peripheral artery disease) I73.9 Type 2 diabetes mellitus with diabetic peripheral angiopathy and gangrene, with long-term current use of insulin E11.52; Z79.4 Diabetes mellitus chcf insulin use: with chcf use Diabetes mellitus complication status: with circulatory complication BETTE (obstructive sleep apnea) G47.33 Chronic respiratory failure, unspecified whether with hypoxia or hypercapnia J96.10 Respiratory failure complication: unspecified whether with hypoxia or h ypercapnia Chronic diastolic congestive heart failure I50.32 Heart failure type: diastolic Heart failure chronicity: chronic Primary hypertension I10 Hypertension type: primary hypertension Pressure ulcer of right foot, unstageable L89.890 Occlusion of right popliteal artery I70.201 Bacteremia due to Staphylococcus R78.81; B95.8 (4) Acute and chronic respiratory failure Respiratory failure complication: hypoxia Qualified Code(s): J96.21 - Acute and chronic respiratory failure with hypoxia (6) Type 2 diabetes mellitus Diabetes mellitus 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 insulin use: 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 Diabetes mellitus complication status: with circulatory complication Qualified Code(s): E11.52 - Type 2 diabetes mellitus with diabetic peripheral angiopathy with gangrene; Z79.4 - [facility] (current) use of insulin (8) Chronic respiratory failure Respiratory failure complication: unspecified whether with hypoxia or hypercapnia Qualified Code(s): J96.10 - Chronic respiratory failure, unspecified whether with hypoxia or hypercapnia (9) CHF (congestive heart failure) Heart failure type: diastolic Heart failure chronicity: chronic Qualified Code(s): I50.32 - Chronic diastolic (congestive) heart failure (10) Hypertension Hypertension type: primary hypertension Qualified Code(s): I10 - Essential (primary) hypertension
[2023-12-18] MEDS: CLOPIDOGREL BISULFATE 75 MG TAB PO SCH (08:15)
--- NOTE | 2023-12-18 14:16 | Hospitalist Progress Note ---
Date of Service December 18, 2023 Assessment & Plan (1) Septic shock: Plan: Patient initial Blood Cx demonstrated coag neg Staphylococcus, as per ID, felt to be a contaminant and IV abx stopped, remains on Augmentin and Doxy Source is his foot. Shock is resolved Not on pressors anymore There were initial concerns of gas gangrene/necrotizing fasciitis however clinically did not correlate Moreover cellulitis seems to be improving with IV antibiotics Infectious disease input appreciated Improving TTE ruled out vegetation Repeat blood cultures ordered 12/07. 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 After right BKA, he remained intubated again on 12/13. Extubated 12/14. 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 (6) Type 2 diabetes mellitus: Plan: A1c 8.1 Currently on Lantus 15 units bid and Novolog SSI based on accucheck Consult pharmacy for glycemic control glu in the 110-170 range (7) BETTE (obstructive sleep apnea): Plan: Not on CPAP, on chronic O2 (8) Chronic respiratory failure: Plan: Chronic 4LPM O2 (9) CHF (congestive heart failure): Plan: Patient has CHFpEF Currently euvolemic Furosemide was being held pre-operatively Patient got Lasix on 12/09 as chest x-ray showed fluid overload (10) Hypertension: Plan: Continue metoprolol succinate Hold lisinopril, furosemide perioperatively (11) Pressure ulcer of right foot, unstageable: (12) Occlusion of right popliteal artery: (13) Bacteremia due to Staphylococcus: Plan: Infectious disease believes it is a contaminant Admission and Anticipated Discharge Date Admission Date: December 07, 2023 Subjective He is sp RBKA Post OR he was was hypotensive and required Ross-Synephrine and unable to come off vent ---> ICU . He was weaned off pressors and self extubated. Currently 98% on nasal canula. He is afebrile and feels well . WBC trending down . clindamycin and Zosyn stopped. He remains on Augmentin and Doxy to stop on 12/18. pth specimen pending He is awake and alert and in good spirits Review of Systems Review of Systems: denies significant pain Physical Exam Physical Exam: General: Awake, conversant. Heart: S1, S2/regular rate and rhythm, no murmur rubs or gallops Lungs: Clear to auscultation bilaterally. Normal effort Abdomen: Soft/nontender/nondistended. No hepatosplenomegaly. Positive bowel sounds Extremities: No clubbing/cyanosis. Status post right BKA. Dressing on stump. Behavior: Appropriate, cooperative Results & Data Results & Data Vital Signs (Past 12 Hours) Vital Signs Temp Pulse Resp BP Pulse Ox O2 Del Method O2 Flow Rate 12/18/23 07:22 36.7 C 60 16 136/78 92 Room Air 2 PG Care Time/CCT Total # of Minutes Spent Total Time Spent with Patient: Total time spent is greater than 50% in coordination of care (as documented) at patient's floor/unit and/or counseling patient: Coding Level of Care Code 76563 SUB INP/OBS CARE 2/35MIN Diagnoses Septic shock A41.9; R65.21 Ischemic foot I99.8 Cellulitis of foot, right L03.115 Acute on chronic respiratory failure with hypoxia J96.21 Respiratory failure complication: hypoxia PAD (peripheral artery disease) I73.9 Type 2 diabetes mellitus with diabetic peripheral angiopathy and gangrene, with long-term current use of insulin E11.52; Z79.4 Diabetes mellitus fdc insulin use: with intermediate card tender use Diabetes mellitus complication status: with circulatory complication BETTE (obstructive sleep apnea) G47.33 Chronic respiratory failure, unspecified whether with hypoxia or hypercapnia J96.10 Respiratory failure complication: unspecified whether with hypoxia or hypercapnia Chronic diastolic congestive heart failure I50.32 Heart failure type: diastolic Heart failure chronicity: chronic Primary hypertension I10 Hypertension type: primary hypertension Pressure ulcer of right foot, unstageable L89.890 Occlusion of right popliteal artery I70.201 Bacteremia due to Staphylococcus R78.81; B95.8 (4) Acute and chronic respiratory failure Respiratory failure complication: hypoxia Qualified Code(s): J96.21 - Acute and chronic respiratory failure with hypoxia (6) Type 2 diabetes mellitus Diabetes mellitus fdc insulin use: with fdc use Diabetes mellitus complication status: with circulatory complication Qualified Code(s): E11.52 - Type 2 diabetes mellitus with diabetic peripheral angiopathy with gangrene; Z79.4 - shelter (current) use of insulin (8) Chronic respiratory failure Respiratory failure complication: unspecified whether with hypoxia or hypercapnia Qualified Code(s): J96.10 - Chronic respiratory failure, unspecified whether with hypoxia or hypercapnia (9) CHF (congestive heart failure) Heart failure type: diastolic Heart failure chronicity: chronic Qualified Code(s): I50.32 - Chronic diastolic (congestive) heart failure (10) Hypertension Hypertension type: primary hypertension Qualified Code(s): I10 - Essential (primary) hypertension
--- NOTE | 2023-12-19 09:37 | Pharmacy Report ---
Pharmacy Glycemic Short Note 2 - Date of Service December 19, 2023 - Glycemic Short BSG Results (Last 24 hours): 12/18/23 12/18/23 12/18/23 11:56 16:43 21:11 POC Glucose 144 H 128 H 109 H 12/19/23 07:49 POC Glucose 126 H OUTPATIENT ANTIDIABETIC REGIMEN: * Levemir 80 units SC BID * Glipizide 5 mg PO BID * Metformin 1000 mg PO BID * HbA1c: 8.1% (12/08/23) ASSESSMENT: 12/18: * Stressors stable * AM fasting BSG within goal range. No change to Lantus. * Post-prandial BSG's were reasonable yesterday. No change to Novolog. 12/14: * BSGs acceptable over last 24 hrs * Diet to resume with lunch today, will wait to see how well diet is tolerated before escalating basal insulin doses 12/13: * Patient remains NPO- did adjust lantus slightly this morning- monitor fasting tomorrow 12/12: * BSGs have been stable past ~48 hours+. * Pt will be NPO after midnight tonight for R BKA tomorrow w/ Dr Greenberg. * Anticipate that current regimen will be appropriate, even while NPO. * Pharmacy will continue to follow and adjust regimen as indicated. 12/08: * Oliverio received 81 units of insulin yesterday, 70 basal + 11 bolus. BSGs were: [phone] mg/dL. * Fasting BSG down to 159 mg/dL this AM. Patient remains NPO today for surgery which is scheduled. Of note, he was NPO for all of yesterday as well. * Will adjust basal scale to only provide 30 or 40 units of insulin BID pending BSG. Since patient tolerated 70 units of basal yesterday while NPO, I am not concerned for hypoglycemia today as patient will likely be ordered a diet and start eating postoperatively. * No change to Novolog. * Remains on heparin drip, LR at 80 cc/hr, daptomycin, clindamycin and zosyn. PLAN FOR INPATIENT GLYCEMIC CONTROL: * Hold outpatient oral diabetes medications * Basal insulin * continue Lantus 15 units SC BID - reeval needs when diet advanced/tolerated * Bolus insulin * NovoLog per scale ACHS or Q6hrs while NPO * Goal Range: Low 110 mg/dL - High 140 mg/dL * Correction Factor: 15 mg/dL/unit * Nutritional / Prandial insulin per carb ratio of 1 unit per 5 grams CHO consumed
--- NOTE | 2023-12-19 17:55 | Hospitalist Progress Note ---
Date of Service December 19, 2023 Assessment & Plan (1) Septic shock: Plan: Patient initial Blood Cx demonstrated coag neg Staphylococcus, as per ID, felt to be a contaminant and IV abx stopped, remains on Augmentin and Doxy Source is his foot. Shock is resolved Not on pressors anymore There were initial concerns of gas gangrene/necrotizing fasciitis however clinically did not correlate Moreover cellulitis seems to be improving with IV antibiotics Infectious disease input appreciated Improving TTE ruled out vegetation Repeat blood cultures ordered 12/07. 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 After right BKA, he remained intubated again on 12/13. Extubated 12/14. 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 (6) Type 2 diabetes mellitus: Plan: A1c 8.1 Currently on Lantus 15 units bid and Novolog SSI based on accucheck Consult pharmacy for glycemic control glu in the 110-170 range (7) BETTE (obstructive sleep apnea): Plan: Not on CPAP, on chronic O2 (8) Chronic respiratory failure: Plan: Chronic 4LPM O2, currently 2 L/M with SaO2 95% (9) CHF (congestive heart failure): Plan: Patient has CHFpEF Currently euvolemic Furosemide was being held pre-operatively Patient got Lasix on 12/09 as chest x-ray showed fluid overload stop IVF and resume preadmission Lasix (10) Hypertension: Plan: Continue metoprolol succinate Resume lisinopril, furosemide for planned dc to SNF (11) Pressure ulcer of right foot, unstageable: (12) Occlusion of right popliteal artery: (13) Bacteremia due to Staphylococcus: Plan: Infectious disease believes it is a contaminant Admission and Anticipated Discharge Date Admission Date: December 07, 2023 Subjective He is sp RBKA Post OR he was was hypotensive and required Ross-Synephrine and unable to come off vent ---> ICU . He was weaned off pressors and self extubated. Currently 98% on nasal canula. He is afebrile and feels well . WBC trending down . clindamycin and Zosyn stopped. He remains on Augmentin and Doxy to stop on 12/18. pth specimen pending He is awake and alert and in good spirits Physical Exam Physical Exam: General: Awake, conversant. Heart: S1, S2/regular rate and rhythm, no murmur rubs or gallops Lungs: Clear to auscultation bilaterally. Normal effort Abdomen: Soft/nontender/nondistended. No hepatosplenomegaly. Positive bowel sounds Extremities: No clubbing/cyanosis. Status post right BKA. Dressing on stump. Behavior: Appropriate, cooperative Results & Data Results & Data Vital Signs (Past 12 Hours) Vital Signs Temp Pulse Pulse Resp BP Pulse Ox O2 Del Method 12/19/23 15:07 36.5 C 57 L 18 139/66 95 Nasal Cannula 12/19/23 09:01 Nasal Cannula 12/19/23 08:37 163/78 H 12/19/23 07:22 36.9 C 64 14 173/97 H 95 Nasal Cannula O2 Flow Rate 12/19/23 15:07 2 12/19/23 09:01 2 12/19/23 08:37 12/19/23 07:22 2 PG Care Time/CCT Total # of Minutes Spent Total Time Spent with Patient: Total time spent is greater than 50% in coordination of care (as documented) at patient's floor/unit and/or counseling patient: Coding Level of Care Code 15352 SUB INP/OBS CARE 2/35MIN Diagnoses Septic shock A41.9; R65.21 Ischemic foot I99.8 Cellulitis of foot, right L03.115 Acute on chronic respiratory failure with hypoxia J96.21 Respiratory failure complication: hypoxia PAD (peripheral artery disease) I73.9 Type 2 diabetes mellitus with diabetic peripheral angiopathy and gangrene, with long-term current use of insulin E11.52; Z79.4 Diabetes mellitus watermaster insulin use: with longterm use Diabetes mellitus complication status: with circulatory complication BETTE (obstructive sleep apnea) G47.33 Chronic respiratory failure, unspecified whether with hypoxia or hypercapnia J96.10 Respiratory failure complication: unspecified whether with hypoxia or hypercapnia Chronic diastolic congestive heart failure I50.32 Heart failure type: diastolic Heart failure chronicity: chronic Primary hypertension I10 Hypertension type: primary hypertension Pressure ulcer of right foot, unstageable L89.890 Occlusion of right popliteal artery I70.201 Bacteremia due to Staphylococcus R78.81; B95.8 (4) Acute and chronic respiratory failure Respiratory failure complication: hypoxia Qualified Code(s): J96.21 - Acute and chronic respiratory failure with hypoxia (6) Type 2 diabetes mellitus Diabetes mellitus longterm insulin use: with watermaster use Diabetes mellitus complication status: with circulatory complication Qualified Code(s): E11.52 - Type 2 diabetes mellitus with diabetic peripheral angiopathy with gangrene; Z79.4 - halfway (current) use of insulin (8) Chronic respiratory failure Respiratory failure complication: unspecified whether with hypoxia or hypercapnia Qualified Code(s): J96.10 - Chronic respiratory failure, unspecified whether with hypoxia or hypercapnia (9) CHF (congestive heart failure) Heart failure type: diastolic Heart failure chronicity: chronic Qualified Code(s): I50.32 - Chronic diastolic (congestive) heart failure (10) Hypertension Hypertension type: primary hypertension Qualified Code(s): I10 - Essential (primary) hypertension
[2023-12-20 07:43] LABS: Hematocrit (blood only) 34.8 % (42.0-52.0); Hemoglobin 10.3 g/dl (14.0-18.0); Mean Corpuscular Hemoglobin 25.6 pg (25.0-34.0); Mean Corpuscular Hgb Conc 29.6 g/dL (32.0-36.0); Mean Corpuscular Volume 86.6 fL (80.0-100.0); Mean Platelet Volume 10.3 fL (9.4-12.4); Platelet Count 442 K/uL (130-400); RDW Coefficient of Variation 15.3 % (11.5-14.5); RDW Standard Deviation 49.1 fL (36.4-46.3); Red Blood Count 4.02 M/uL (4.70-6.10); White Blood Count 13.23 K/ul (4.8-10.8)
[2023-12-20] MEDS: lisinopril 10 MG TAB PO SCH (08:12)
[2023-12-20] MEDS: FUROSEMIDE 40 MG TAB PO SCH (08:12)
[2023-12-20 08:53] LABS: BUN Creatinine Ratio 21.4 (10-20); Calcium 9.4 mg/dl (8.6-10.3); Creatinine Clr Calc Pharmacy 99.5 ml/min; Est GFR (African American) 104.3 ml/min; Potassium 4.3 mmol/L (3.5-5.1)
--- NOTE | 2023-12-20 09:37 | Surgery Progress Note ---
Date of Service December 20, 2023 Assessment & Plan (1) S/P below knee amputation: Plan: Pt doing well postop. OK for d/c to rehab from vascular standpoint. No dressing required to RLE BKA site. Will see in office in 2 weeks for staple removal. Admission and Anticipated Discharge Date Admission Date: December 07, 2023 Subjective 68 yo m POD #6 after RLE BKA, seen in f/u. Pt states feeling well. NO complaints. Review of Systems Review of Systems: All systems reviewed & are unremarkable except as noted in HPI & below Physical Exam Constitutional: WD/WN, vitals as above cooperative and comfortable; not in distress Skin: + incision (RLE BKA incision C/D/I with denise.Mild local edema.No erythema) Results & Data Vital Signs (Past 12 Hours) Vital Signs Temp Pulse Resp BP Pulse Ox O2 Del Method O2 Flow Rate 12/20/23 08:30 67 18 145/74 H 93 Nasal Cannula 2 12/20/23 07:54 Nasal Cannula 2 12/20/23 07:27 36.6 C 69 18 173/89 H 94 Nasal Cannula 2
--- NOTE | 2023-12-20 11:34 | Discharge Summary ---
Date of Service December 20, 2023 Admission HPI Per Admitting Provider Oliverio Monte is a 68-year-old male who presents to the ER on advice of the wound care clinic due to purple discoloration and lack of pulses in his right foot. He reports problems with his right foot stemming from November 2022 when in [facility] he had a stent placed to help with blood flow and he reports at the same time he was to have an I&D on an ulcer on 5th toe but it turned out to be gangrenous therefore operation turned into an amputation. This was performed by Dr Laguerre. 3 months following this he developed a new pressure ulcer on the dorsum of his foot which has also never healed. Both wounds were doing better over many months and he follows with wound care regularly. This was up until a routine ultrasound in October picked up that the stent was blocked. His insurance no longer covered [facility] therefore he switched vascular surgeons to Dr Greenberg and underwent right lower extremity angiogram with percutaneous transluminal angioplasty and stenting of right popliteal Artery and percutaneous transluminal angioplasty of proximal right superficial femoral artery on October 26. Again his foot started to heal better following this up until 2 weeks a ago he started noticing worsening pain. He is unsure of the timeline of discoloration but feels this may also have been purple for the last 1.5 weeks (certainly not present at his prior wound care visit appointment 2 weeks ago). Erythema started tracking up his foot and leg for the last 3-4 days. No fever or chills. He reports the ulcers have turned black over the last month. He reports being on antibiotics from wound care recently in the last month but cannot remember what he was on and nothing mentioned in external med rec list. He has not been on antibiotics for the last week. Principal Diagnosis septic shock Discharge Exam The patient is awake, alert and oriented 3, well developed and well nourished, normocephalic and atraumatic, lying in bed and in no acute distress. HEENT--PERRL, EOMI, mucous membranes and oropharynx mildly dry Neck--supple. No JVD. No bruits. Thyroid normal, trachea midline, no adenopathy. Heart--normal S1 and S2. No murmurs, rubs or gallops. Lungs--clear bilaterally, no respiratory distress, no accessory muscle use. Abdomen--normal bowel sounds and soft. Extremities--right BKA Dermatologic--normal skin turgor, normal color, no abnormal lymph nodes, no rash. Neurologic--cranial nerves II through XII grossly intact. Rheumatologic--normal range of motion. Psychiatric--normal affect. Discharge Data Allergies Allergy/AdvReac Type Severity Reaction Status Date / Time empagliflozin Allergy Intermediate Nausea, Verified 10/27/23 10:36 [From Jardiance] Dizziness Consultations 12/07/23 16:53 Consult Vascular Surgery Routine ED Decision to Admit Stat 12/08/23 16:07 Consult Infectious Diseases Routine 12/14/23 16:59 Consult [employer]ed [employer] Taper Routine Procedures Performed Operation Date: 12/14/23 14:10 Actual Procedures p Right Leg Below Knee Amputation(Right) - Shahab Greenberg MD Ordered Studies 12/07/23 15:05 CT angio LE RT w inc wo if don Stat 12/08/23 08:34 US venous mapping LE BI Routine 12/09/23 07:18 EV angio LE RT Routine Hospital Course (1) Septic shock: Now resolved - Patient initial Blood Cx demonstrated coag neg Staphylococcus, as per ID, felt to be a contaminant and IV abx stopped, remains on Augmentin and Doxy Source is his foot. Shock is resolved Not on pressors anymore There were initial concerns of gas gangrene/necrotizing fasciitis however clinically did not correlate Infectious disease input appreciated Improving TTE ruled out vegetation Repeat blood cultures ordered 12/07. 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 After right BKA, he remained intubated again on 12/13. Extubated 12/14. 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 (6) Type 2 diabetes mellitus: A1c 8.1 Currently on Lantus 15 units bid and Novolog SSI based on accucheck Consult pharmacy for glycemic control glu in the 110-170 range (7) BETTE (obstructive sleep apnea): Not on CPAP, on chronic O2 (8) Chronic respiratory failure: Chronic 4LPM O2, currently 2 L/M with SaO2 95% (9) CHF (congestive heart failure): Patient has CHFpEF Currently euvolemic Furosemide was being held pre-operatively Patient got Lasix on 12/09 as chest x-ray showed fluid overload stop IVF and resume preadmission Lasix (10) Hypertension: Continue metoprolol succinate Resume lisinopril, furosemide for planned dc to SNF (11) Pressure ulcer of right foot, unstageable: (12) Occlusion of right popliteal artery: (13) Bacteremia due to Staphylococcus: Infectious disease believes it is a contaminant Plan d/c to snf Total Time Total Time Spent Total Time Spent (In Minutes): 35 Discharge Plan Discharge Items Patient Disposition: Transfer Nursing Home Fac Reason For Visit: ISCHEMIC FOOT, CELLULITIS Discharge Diagnosis: ischemic foot, wound infection Activity: Resume your previous activity Non-emergency contact: Primary Care Provider Call non-emergency contact if: you have any medication questions Follow-up/Referrals: Mckenna Fernando PA-C [Primary Care Provider] - Diet: Regular Addtl Attending Provider Instructions: please follow up with your regular PCP Addtl Dot Net Architect Provider Instructions: DIABETES RECOMMENDATIONS: 1.) Talk with your outpatient provider about possibly obtaining a continuous glucose monitor. These devices automatically check your blood sugar without fingerpokes. The device is placed on the back of your arm and is replaced every 10-14 days. 2.) Aim to maintain BG levels below 180 (ideally less than 140 before meals) to support healing. 3.) Focus on consuming three regular/balanced meals (higher in protein) thru day to support healing. Pending Studies at Discharge: No Stand-Alone Forms: My Anonymess Skilled Items Patient informed of condition?: Yes DNR: No Discharge Level of Care: Skilled Communicable Disease: No Discharge Prognosis: Improving Lines: None Urinary Catheter: No Medications and DC Order Prescriptions: Continued furosemide 40 mg tablet 40 mg PO QAM Rx Instructions: 40 mg daily, then if weight increase 2 to 3 overnight, or 4-5 lbs take an extra tablet aspirin 81 mg Tablet,Delayed Release (Dr/Ec) 81 mg PO QAM rosuvastatin [Crestor] 10 mg tablet 10 mg PO DAILY Levemir FlexTouch U100 Insulin 100 unit/mL (3 mL) insulin pen 60 unit SUBCUT BID Patient Comments: took 30 units Rx Instructions: filled back in aug 2023 metoprolol succinate 50 mg tablet extended release 24 hr 50 mg PO QAM metformin 1,000 mg tablet 1,000 mg PO BID nitroglycerin 0.4 mg Tablet, Sublingual 0.4 mg buccal DIRECTED PRN (Reason: Chest Pain) Rx Instructions: not used in 4 years lisinopril 30 mg tablet 30 mg PO QAM clopidogrel 75 mg tablet 75 mg PO DAILY nortriptyline 25 mg Capsule 25 mg PO HS pantoprazole [Protonix] 40 mg Tablet,Delayed Release (Dr/Ec) 40 mg PO DAILY cyclobenzaprine 5 mg tablet 5 mg PO TID Rx Instructions: not started yet, just prescribed this morning. glipizide 5 mg tablet 5 mg PO BID Rx Instructions: just picked up november 27 insulin glargine [Lantus Solostar U-100 Insulin] 100 unit/mL (3 mL) insulin pen See Rx Instructions .ROUTE .COMPLEX Rx Instructions: 80 units bid per pharmacy, should be replacing lev. 12/15/23 Discharge Orders: Discharge Order (Routine); Ordered 12/20/23 Ordered By: Miguel Lorenzo/Other Patient Handouts: Nutrition for Wound Healing, Managing Type 2 Diabetes Admission Data Admit Date/Time: 12/07/23 17:20 Attending Provider: Miguel Saenz Admit Provider: Merrick Porter Primary Care Provider: Mckenna Fernando Other Providers: Petra Mendoza; Merrick Porter; Shahab Greenberg; Jessica Heredia; Kamaljit Alarcon; Mario Hebert; Car Mata; Davy Curry; Artemio Gallardo; Zheng Molina; Derek Gandara; Jazmín Fox; Sarai Pisano; Romeo Pires; Ravi Medeiros; Debora Rodriguez Other Interventions: Discharge Summary Assessment (RN) Last Done: 12/20/23 10:02 Coding Level of Care Code 21369 INP/OBS DISCH >30 MIN Diagnoses Septic shock A41.9; R65.21 Ischemic foot I99.8 Cellulitis of foot, right L03.115 Acute on chronic respiratory failure with hypoxia J96.21 Respiratory failure complication: hypoxia PAD (peripheral artery disease) I73.9 Type 2 diabetes mellitus with diabetic peripheral angiopathy and gangrene, with long-term current use of insulin E11.52; Z79.4 Diabetes mellitus alf insulin use: with alf use Diabetes mellitus complication status: with circulatory complication BETTE (obstructive sleep apnea) G47.33 Chronic respiratory failure, unspecified whether with hypoxia or hypercapnia J96.10 Respiratory failure complication: unspecified whether with hypoxia or hypercapnia Chronic diastolic congestive heart failure I50.32 Heart failure type: diastolic Heart failure chronicity: chronic Primary hypertension I10 Hypertension type: primary hypertension Pressure ulcer of right foot, unstageable L89.890 Occlusion of right popliteal artery I70.201 Bacteremia due to Staphylococcus R78.81; B95.8 Time Spent (min) 35
--- NOTE | 2023-12-29 15:35 | Operative Report ---
Post Operative Report Pre & Post Diagnosis Operation Date: 12/14/23 14:10 Pre-Op Diagnosis: Right ischemic foot. Post-Op Diagnosis: Right ischemic foot. I identified the patient and participated in the time-out.: Yes Procedure Operation Date: 12/14/23 14:10 Actual Procedures p Right Leg Below Knee Amputation(Right) - Shahab Greenberg MD Surgeon Shahab Greenberg MD Hurricane Tracker Alan Horan,PAC Estimated Blood Loss 200 Findings Consistent with Post-Op Diagnosis Specimens right leg Anesthesia Type General Complications none Disposition Accompanied Patient To Recovery: No Disposition: Recovery Room Indications This is a 68-year-old gentleman with ischemic right lower extremity. Attempt was made for revascularization which was unsuccessful. Surgical reconstruction was also not feasible due to outflow. Right below-knee amputation was recommended due to severe intractable pain and gangrenous changes. I have discussed the risks options and benefits of the procedure with the patient. The patient understands the risks options and benefits and agrees to the procedure. Description of Procedure The patient was taken the operating placed supine position. Right lower extremities prepped draped in sterile manner. A timeout was performed and the patient was identified the usual below-knee amputation incision was then made approximate 4 fingerbreadths below the tibial tuberosity is carried down to the fascial layers throughout fascia was then divided the muscles anterior compartments were divided use electrocautery. Anterior tibial artery was ligate d and divided. Lateral muscles were then also divided. Using the Gigli saw the tibia was transected with the anterior portion beveled superiorly. The fibula was then isolated approximately 2 cm above the tibia transection point and this was divided at that level using the oscillating saw. Using the amputation knife the leg was removed performing a flap using the soleus and gastroc muscles. On ce the leg was removed adequate was stasis was obtained. Muscles were viable with good bleeding and perfusion noted. Once this was noted the fascia from the flap was approximated to the anterior fascia of the leg with interrupted 3-0 Vicryl's skin edges then approximated using the stapling device. Sterile dressings were applied to the wound. The patient left the operation room in satisfactory condition and tolerated the procedure well. All needle and sponge counts were correct at the end of the procedure. I attest to the content of the Intraoperative Record and any orders documented therein. Any exceptions are noted below.
== END 2023-12-20 14:17 | DRG 853 ==
LOC: ED 14:38 → SUATTDRO 17:20 → 4W 17:20 → 1E 12-09 15:28 → 4W 12-10 18:07 → 1E 12-14 16:59 → 3W 12-15 15:07

== ENCOUNTER 2024-05-10 12:49 | Inpatient (IN) ==
[2024-05-10 13:40] LABS: Basophils # (auto) 0.05 K/uL (0.00-0.20); Basophils % (auto) 0.4 %; Eosinophils # (auto) 0.11 K/uL (0.00-0.50); Hematocrit (blood only) 41.3 % (42.0-52.0); Hemoglobin 11.9 g/dl (14.0-18.0); Immature Granulocytes # (auto) 0.04 K/uL (0.01-0.20); Immature Granulocytes % (auto) 0.3 %; Lymphocytes # (auto) 1.37 K/uL (1.20-3.40); Lymphocytes % (auto) 11.9 %; Mean Corpuscular Hemoglobin 23.7 pg (25.0-34.0); Mean Corpuscular Hgb Conc 28.8 g/dL (32.0-36.0); Mean Corpuscular Volume 82.3 fL (80.0-100.0); Mean Platelet Volume 11.2 fL (9.4-12.4); Monocytes # (auto) 0.79 K/uL (0.11-0.59); Monocytes % (auto) 6.9 %; Neutrophils # (auto) 9.16 K/uL (1.40-6.50); Neutrophils % (auto) 79.5 %; Platelet Count 295 K/uL (130-400); RDW Coefficient of Variation 16.1 % (11.5-14.5); RDW Standard Deviation 48.1 fL (36.4-46.3); Red Blood Count 5.02 M/uL (4.70-6.10); White Blood Count 11.52 K/ul (4.8-10.8)
[2024-05-10 14:02] LABS: Alanine Aminotransferase 9 U/L (7-52); Albumin Globulin Ratio 1.7 (0.9-2); Albumin Level 4.3 gm/dl (3.4-5.0); Alkaline Phosphatase 69 U/L (34-104); Anion Gap 5 (3-11); Aspartate Aminotransferase 14 U/L (13-39); BUN Creatinine Ratio 26.7 (10-20); Bilirubin,Total 0.6 mg/dl (0.2-1.0); Blood Urea Nitrogen 24 mg/dl (6-23); Calcium 9.6 mg/dl (8.6-10.3); Carbon Dioxide 37 mmol/L (21-32); Chloride 98 mmol/L (98-107); Globulin 2.6 gm/dl (2.5-4.0); Glucose 78 mg/dl (70-99(Fasting)); Potassium 4.4 mmol/L (3.5-5.1); Sodium 140 mmol/L (136-145); Total Protein 6.9 gm/dl (6.0-8.3)
[2024-05-10 14:06] LABS: INR 1.1 (0.9-1.1); Partial Thromboplastin Time 28 Seconds (21-31); Prothrombin Time 11.9 Seconds (9.0-12.0)
[2024-05-10 14:08] LABS: Troponin I High Sensitivity 21.5 pg/ml (0-20)
--- NOTE | 2024-05-10 14:24 | XRay Report ---
XR chest 1V not portable HISTORY: 69 years-old Male Chest pain, nonspecific COMPARISON: 12/15/2023 TECHNIQUE: AP view chest FINDINGS: Cardiac silhouette is enlarged. Pulmonary vascular congestion with interstitial coarsening. Minimal b ibasilar atelectasis. No pneumothorax, large pleural effusion or lobar airspace consolidation. Bones appear grossly intact. IMPRESSION: Cardiomegaly with pulmonary vascular congestion. ACT 112: Negative or not required by law. The above report was generated using voice recognition software. It may contain grammatical, syntax o r spelling errors. Electronically signed by: Jas Ruiz M.D. 05/10/2024 2:23 PM
--- NOTE | 2024-05-10 15:38 | Emergency Department Note ---
Impression & Plan Chest pain, Chronic hypoxemic respiratory failure, Pulmonary edema ED Provider Note ED Provider Note NAME: LILLIAM SAEED AGE:69 SEX: Male : 1955 ARRIVES VIA: Private vehicle INFORMANT: Patient, family ED PROVIDER(s): Mer Minor DO CHIEF COMPLAINT: Chest pain, shortness of breath HPI: This is a 69-year-old male presents emergency department with family bedside due to concern for chest pain/pressure that began the day and increased shortness of breath. Patient hospitalized last month in [place]. Family states during that stay several medications were stopped including his furosemide and lisinopril. Patient underwent a right lower extremity BKA back in December. She states he has extensive vascular disease. She states over the last several days she has noticed he has been more tired and more winded with any exertion, and she was concerned he was filling up with fluid. When he began to complain of chest pressure today she was more concerned and brought him to the emergency department for evaluation. She states he did have an echo when he was hospitalized last month. She is able to show the results of this on her phone through the [place] portal. No recent fevers or chills, no change in cough. Patient states she did increase his chronic oxygen from 4 L/min to 6 L/min. Patient is a remote smoker, she denies any known diagnosis of COPD. PAST MEDICAL HISTORY:See Below PAST SURGICAL HISTORY:See Below FAMILY HISTORY:See Below SOCIAL HISTORY:See Below HOME MEDICATIONS:See Below ALLERGIES:See Below VITALS:See Below PHYSICAL EXAMINATION: GENERAL: alert, well appearing, well nourished, no distress, non-toxic EYE EXAM: normal conjunctiva, PERRL and EOM's grossly intact OROPHARYNX: no exudate, no erythema, lips, buccal mucosa, and tongue normal and mucous membranes are moist NECK: supple, no nuchal rigidity, no adenopathy, non-tender LUNGS: Decreased bilaterally to auscultation. Normal chest wall mechanics, no w/r/r HEART: no murmurs, S1 normal and S2 normal ABDOMEN: abdomen soft, non-tender, normo-active bowel sounds, no masses, no rebound or guarding. SKIN: no rashes, petechiae, orbruising UPPER EXTREMITIES: upper extremities are grossly normal. FROM, nml pulses b/l. LOWER EXTREMITIES: 2+ pitting edema LLE. FROM, nml pulses left lower extremity. Right BKA, stump healing. NEURO EXAM: Normal sensorium, cranial nerves II-XII grossly intact, normal speech, no facial droop,nogross weakness of arms, no gross weakness of legs. Gross sensation intact. No ataxia. Vital Signs: reviewed and remarkable Differential Diagnosis: acute coronary syndrome, pericarditis, pulmonary embolus, aortic dissection, pneumonia, pneumothorax, musculoskeletal pain, shingles, GERD, GI bleed, as well as others were considered MEDICAL DECISION MAKING: This is a 69-year-old male presents emerged part with family due to concern for chest pain and increased shortness of breath. Patient does wear 4 L/min of oxygen chronically via nasal cannula due to prior COPD, and family turned him up to 6. Patient states symptoms occur mostly with any exertion. Patient with recent hospitalization done at [place], echo performed during that time which was reviewed on family members phone at bedside. Patient noted to be afebrile vital signs stable on arrival here. They also reported change in patient's medications when he was admitted 2 weeks ago including the discontinuation of his Lasix, lisinopril and other blood pressure medications. Family concern for congestive heart failure. Labs drawn and sent, IV established, EKG and chest ray performed at bedside interpreted by me and patient monitored on telemetry. Patient did appear to be having evolving pulmonary edema/CHF. Patient's troponin mildly elevated here although may be secondary to CHF. EKG without acute changes and I do not suspect ACS. I feel PE less likely. Patient given a dose of IV Lasix here. Blood pressure remained stable throughout. Given patient's complicated past medical history and comorbidities, we discussed additional inpatient evaluation and management while he is diuresed. Patient and family verbalized understanding at bedside. Case discussed with the hospitalist team for additional evaluation and management. Consultation(s): 1720: Discussed with Dr. Porter, [facility] hospitalist team, for additional evaluation and management. ER Treatment Provided: See below Diagnostics Interpreted By Me: -ECG: Normal sinus at 71, normal axis, right bundle branch block, nonspecific ST/T wave changes -Cardiac Monitoring: An order was placed for continuous cardiac monitoring. The monitor shows a rate of 70 with normal sinus rhythm. -Laboratory studies: As stated above and show below. -Imaging studies: cxr: +CM, evolving pulm edmea b/l, no focal consolidation, no wide mediastinum Triage Nursing Note Reviewed Prior/Outside Records Reviewed Past Med/Surg History Problem List (Updated 05/11/24 @ 17:37 by Mer Minor DO) Pulmonary edema (Acute) Chronic hypoxemic respiratory failure (Acute) (HFpEF) heart failure with preserved ejection fraction Pulmonary hypertension Ex-smoker Pulmonary nodule Chest pain (Acute) S/P below knee amputation Endotracheally intubated RVF (right ventricular failure) Acute and chronic respiratory failure Pressure ulcer of right foot, unstageable Ischemic foot CHF (congestive heart failure) COPD (chronic obstructive pulmonary disease) Chronic respiratory failure Acute hyperglycemia (Acute) Acute hyponatremia (Acute) Cellulitis of foot, right (Acute) PAD (peripheral artery disease) (Acute) Occlusion of right popliteal artery (Acute) CKD (chronic kidney disease) stage 2, GFR 60-89 ml/min DVT prophylaxis BETTE (obstructive sleep apnea) Type 2 diabetes mellitus Coronary artery disease (Acute) Hypertension Abnormal pulmonary finding Abnormal chest CT Acute respiratory failure with hypoxia Pneumonia Hypoxia (Acute) Mucus plugging of bronchi (Acute) Medical History Gangrene due to arterial insufficiency Septic shock Pulmonary hypertension Hyperlipidemia Family History Other Family history non-contributory Social History Smoking Status: Former smoker Tobacco Type: Cigarettes Cigarettes Per Day: na; Second Hand Exposure: No; Do You Dip or Chew Tobacco: No; Tobacco Cessation Education Requested by Patient: No Hx Alcohol Use: Yes (occasionally) Alcohol type: other Hx Substance Use: No Preferred Language: Barbadian Communication Ability: Effective Box Car Bracer Required: No Beliefs That Will Affect Care: None Current Living Situation: Family Current Living Situation Comment: with son and daughter inlaw How many Children do You have: 5 Other Information That Helps Us Care for You: No Feels Safe at Home: Yes Safety Concerns: Feels Safe At This Time Assistive Devices: Cane, Oxygen - Continuous and Wheelchair Allergies Allergies Allergy/AdvReac Type Severity Reaction Status Date / Time empagliflozin Allergy Intermediate Nausea, Verified 05/10/24 16:21 [From Jardiance] Dizziness nitroglycerin Allergy Intermediate Unknown - Unverified 05/10/24 16:17 Was just told to not take it as precaution Home Meds Home Medications Medication Instructions Recorded Confirmed aspirin 81 mg tablet,delayed 81 mg PO QAM 04/02/21 05/10/24 release insulin detemir U-100 100 unit/mL 50 unit subcut BID 04/02/21 05/10/24 (3 mL) subcutaneous pen (Levemir FlexTouch U-100 Insulin) metformin 1,000 mg tablet 1,000 mg PO BID 04/02/21 05/10/24 metoprolol succinate 50 mg 50 mg PO QAM 04/02/21 05/10/24 tablet,extended release 24 hr clopidogrel 75 mg tablet 75 mg PO QAM 01/12/23 05/10/24 nortriptyline 25 mg capsule 0 mg PO HS 01/12/23 05/10/24 pantoprazole 40 mg tablet,delayed 40 mg PO QAM 01/12/23 05/10/24 release (Protonix) glipizide 5 mg tablet 5 mg PO BID 12/15/23 05/10/24 Results & Data (ED) Vital Signs Vital Signs - 24 hr 05/10/24 17:48 Pulse Rate [Apical] 84 Respiratory Rate 16 Respiratory Effort / Characteristics Non-Labored Respiratory Depth Normal Respiratory Pattern Regular Blood Pressure [Right Arm] 173/98 H Blood Pressure Mean [Right Arm] 123 Pulse Oximetry 94 Oxygen Delivery Method Nasal Cannula Oxygen Flow Rate 5 Laboratory Data 05/11/24 05:19 05/11/24 09:02 Lab Results 05/10/24 05/10/24 05/10/24 Range/Units 13:21 15:08 15:32 WBC 11.52 H (4.8-10.8) K/ul RBC 5.02 (4.70-6.10) M/uL Hgb 11.9 L (14.0-18.0) g/dl Hct 41.3 L (42.0-52.0) % MCV 82.3 (80.0-100.0) fL MCH 23.7 L (25.0-34.0) pg MCHC 28.8 L (32.0-36.0) g/dL RDW Std Deviation 48.1 H (36.4-46.3) fL RDW Coeff of Larry 16.1 H (11.5-14.5) % Plt Count 295 (130-400) K/uL MPV 11.2 (9.4-12.4) fL Immature Gran % (Auto) 0.3 % Neut % (Auto) 79.5 % Lymph % (Auto) 11.9 % [place] % (Auto) 6.9 % Eos % (Auto) 1.0 % Baso % (Auto) 0.4 % Neut # (Auto) 9.16 H (1.40-6.50) K/uL Lymph # (Auto) 1.37 (1.20-3.40) K/uL [place] # (Auto) 0.79 H (0.11-0.59) K/uL Eos # (Auto) 0.11 (0.00-0.50) K/uL Baso # (Auto) 0.05 (0.00-0.20) K/uL Immature Gran # (Auto) 0.04 (0.01-0.20) K/uL PT 11.9 (9.0-12.0) Seconds INR 1.1 (0.9-1.1) APTT 28 (21-31) Seconds PTT Ratio 1.0 Sodium 140 (136-145) mmol/L Potassium 4.4 (3.5-5.1) mmol/L Chloride 98 (98-107) mmol/L Carbon Dioxide 37 H (21-32) mmol/L Anion Gap 5 (3-11) BUN 24 H (6-23) mg/dl Creatinine 0.90 (0.6-1.4) mg/dl Est Cr Clr Drug Dosing Not Reportable eGFR 92.45 BUN/Creatinine Ratio 26.7 H (10-20) Glucose 78 (70-99(Fasting)) mg/dl Calcium 9.6 (8.6-10.3) mg/dl Total Bilirubin 0.6 (0.2-1.0) mg/dl AST 14 (13-39) U/L ALT 9 (7-52) U/L Alkaline Phosphatase 69 (34-104) U/L Troponin I High Sens 21.5 H 24.8 H (0-20) pg/ml B-Natriuretic Peptide 197 H (0-100) pg/ml Total Protein 6.9 (6.0-8.3) gm/dl Albumin 4.3 (3.4-5.0) gm/dl Globulin 2.6 (2.5-4.0) gm/dl Albumin/Globulin Ratio 1.7 (0.9-2) Administered Medications Albuterol (Albut/Ipratrop 3mg/0.5mg Neb 3 Ml Vial) 3 ml NEB QIDR [facility]; Protocol Stop: 06/09/24 21:03 Last Admin: 05/11/24 15:27 Dose: 3 ml Documented By: Admin: 05/11/24 11:21 Dose: 3 ml Documented By: Admin: 05/11/24 07:04 Dose: 3 ml Documented By: Admin: 05/10/24 21:20 Dose: 3 ml Documented By: LIBIA Aspirin (Aspirin 81 Mg Ectab) 81 mg PO [facility] Stop: 06/10/24 08:59 Last Admin: 05/11/24 08:47 Dose: 81 mg Documented By: TODD Clopidogrel Bisulfate (Clopidogrel Bisulfate 75 Mg Tab) 75 mg PO [facility] Stop: 06/10/24 08:59 Last Admin: 05/11/24 08:47 Dose: 75 mg Documented By: TODD Dextrose (Dextrose 50% 50 Ml Syringe) 25 - 50 ml IV UD PRN; Protocol PRN Reason: Hypoglycemia Protocol Stop: 06/09/24 21:03 Last Admin: 05/10/24 22:30 Dose: 50 ml Documented By: KATHY Furosemide (Furosemide 40 Mg/4 Ml Vial) 40 mg IV BID17 [facility] Stop: 06/10/24 08:59 Last Admin: 05/11/24 17:20 Dose: 40 mg Documented By: Admin: 05/11/24 08:46 Dose: 40 mg Documented By: TODD Insulin Glargine (Lantus Per Unit Charge) 50 units SQ BID [facility] Stop: 06/10/24 08:59 Last Admin: 05/11/24 09:35 Dose: Not Given Documented By: TODD Metoprolol Succinate (Metoprolol Succ 50mg Ext Rel Tab) 50 mg PO [facility] Stop: 06/10/24 08:59 Last Admin: 05/11/24 08:47 Dose: 50 mg Documented By: TODD Miscellaneous (Carbohydrates For Hypoglycemia ) 15 - 30 gm PO UD PRN PRN Reason: Hypoglycemia Protocol Stop: 06/09/24 21:03 Last Admin: 05/11/24 09:47 Dose: 15 gm Documented By: Admin: 05/10/24 21:48 Dose: 15 gm Documented By: KATHY Nortriptyline HCl (Nortriptyline Hcl 25 Mg Cap) 25 mg PO HS [facility] Stop: 06/09/24 21:03 Last Admin: 05/10/24 21:46 Dose: 25 mg Documented By: KATHY Pantoprazole Sodium (Pantoprazole 40 Mg Tab) 40 mg PO QAM [facility] Stop: 06/10/24 08:59 Last Admin: 05/11/24 08:46 Dose: 40 mg Documented By: TODD Discontinued Medications Furosemide (Furosemide 40 Mg/4 Ml Vial) 40 mg IV ONE ONE Stop: 05/10/24 15:24 Last Admin: 05/10/24 15:50 Dose: 40 mg Documented By: RONI Glipizide (Glipizide 5 Mg Tab) 5 mg PO BIDM [facility] Stop: 06/09/24 21:03 Last Admin: 05/11/24 09:05 Dose: Not Given Documented By: Admin: 05/10/24 21:46 Dose: Not Given Documented By: KATHY Insulin Aspart (Insulin Aspart Per Unit Charge) 0 units SC ACHS [facility] Stop: 06/09/24 21:03 Last Admin: 05/11/24 09:34 Dose: Not Given Documented By: Admin: 05/10/24 21:08 Dose: Not Given Documented By: KATHY Insulin Aspart (Insulin Aspart Per Unit Charge) 0 units SC Q6 [facility] Stop: 06/09/24 21:03 Last Admin: 05/11/24 12:16 Dose: Not Given Documented By: TODD Non-Formulary Medication (Insulin Detemir U-100 [Levemir Flextouch U100 Insulin]) 50 units SQ BID [facility] Stop: 06/09/24 21:03 Last Admin: 05/10/24 21:08 Dose: Not Given Documented By: KATHY Imaging Data Radiologist's Impression: Chest X-Ray 05/10/24 12:58 XR chest 1V not portable HISTORY: 69 years-old Male Chest pain, nonspecific COMPARISON: 12/15/2023 TECHNIQUE: AP view chest FINDINGS: Cardiac silhouette is enlarged. Pulmonary vascular congestion with interstitial coarsening. Minimal bibasilar atelectasis. No pneumothorax, large pleural effusion or lobar airspace consolidation. Bones appear grossly intact. IMPRESSION: Cardiomegaly with pulmonary vascular congestion. ACT 112: Negative or not required by law. The above report was generated using voice recognition software. It may contain grammatical, syntax or spelling errors. Electronically signed by: Jas Ruiz M.D. 05/10/2024 2:23 PM Discharge Plan Visit Data Chief Complaint: Chest Pain Stated Complaint: CHEST PAIN AND TIGHTNESS, COLD SWEAT ED Provider: Mer Minor Discharge Problem: Chest pain, Chronic hypoxemic respiratory failure, Pulmonary edema Patient Disposition: Admitted As Inpatient Discharge Instructions Interventions: ED Discharge Assessment Last Done: 05/10/24 20:37
[2024-05-10] MEDS: FUROSEMIDE 40 MG/4 ML VIAL IV ONE (15:50)
--- NOTE | 2024-05-10 16:38 | Electrocardiogram Report ---
Test Reason : Blood Pressure : */* mmHG Vent. Rate : 71 BPM Atrial Rate : 71 BPM P-R Int : 184 ms QRS Dur : 146 ms QT Int : 402 ms P-R-T Axes : -22 -17 -14 degrees QTcB Int : 436 ms Normal sinus rhythm with sinus arrhythmia Right bundle branch block possible Inferior infarct , age undetermined T wave abnormality, consider lateral ischemia Abnormal ECG When compared with ECG of 09-Dec-2023 15:38, No significant change was found Confirmed by Ervin Mercado ([id number]) on 05/10/2024 4:38:28 PM Referred By: Confirmed By: Ervin Mercado
--- NOTE | 2024-05-10 18:28 | History & Physical Report ---
Date of Service May 10, 2024 Assessment & Plan (1) CHF (congestive heart failure): Plan: Acute on chronic - Admit to med tele - Vital signs per unit protocol - Diurese with IV Lasix 40mg BID - Monitor renal function and electrolytes with diuresis - Daily weights (cannot stand d/t RLE BKA) and monitor I/O q shift - Salt and fluid restrict - Duonebs QIDR and q2 prn dyspnea/wheezing - Cannot tolerate Jardiance, consider resuming low dose SHERMAN inhibitor - Continue metoprolol succinate 50mg daily - CT chest w/o contrast to exclude underlying PNA (2) Chest pain: Plan: Acute chest heaviness - Detectable HS trop of 24 which is likely myocardial demand - Trend troponin - Echo completed in December 2023, preserved EF, concentric LVH, elevated RVSP, mild to mod TR, grade I diastolic dysfunction - Already on ASA and Plavix - Statin recently stopped per daughter by JULIO Andersen - Continue Metoprolol Succ 50mg daily (3) S/P below knee amputation: Plan: Chronic secondary to PVD/PAD - Continue aspirin and plavix - Recently stopped statin therapy as above - Follows with Dr. Greenberg (4) Chronic respiratory failure: Plan: Mixed respiratory failure with hypoxia and hypercapnia - Continue supplemental O2 with goal pulse ox 88-92% (5) Type 2 diabetes mellitus: Plan: Chronic - Continue glipizide and levemir - Add sliding scale coverage ACHS with CF 10 and CR 3 - Blood sugar checks ac and hs - Check a1c Plan Chronic medical issues - HTN - continue metoprolol succ as noted above, diuresis and consider resumption of low dose lisinopril - GERD - continue protonix VTE ppx has been ordered with Lovenox to start in AM. AM labs ordered. PT/OT eval and treat. Plan of care has been d/w Dr. Porter who will also see and evaluate this patient. Further orders as warranted per attending. History of Present Illness Chief Complaint: Chest pain Primary Care Provider: LORENA Johnson is a 69 yo M with a pmhx of PAD s/p BKA of RLE due to occluded artery, as well as HFpEF, DMT2, BETTE, CAD, chronic respiratory failure mixed with hypoxia and hypercapnia, and obesity who presents to the ER today accompanied by his daughter c/o chest heaviness that started today. Reportedly, his daughter feels that he has not been well since his recent hospitalization at [facility]. He had witnessed "seizure-like" activity which was witnessed by his son-in-law approximately and was transferred to [facility]. According to his daughter, he was not started on seizure medications as they felt that the episode was hypotensive induced syncope. His lisinopril and furosemide was discontinued. She notes that he tends to eat a lot of salt-rich foods and has been eating how he normally does. He has had some audible wheezing today and does endorse shortness of breath. Denies cough, fever, or chills. His w/u in the ER demonstrates significant cardiomegaly and PVC on chest radiograph. He was diuresed with IV Lasix 40mg x1. EKG nonacute. His HS trop is detectable at 24.8 and BNP is 197. He has been referred to the hospital medicine team for admission. Allergies Allergy/AdvReac Type Severity Reaction Status Date / Time empagliflozin Allergy Intermediate Nausea, Verified 05/10/24 16:21 [From Jardiance] Dizziness nitroglycerin Allergy Intermediate Unknown - Unverified 05/10/24 16:17 Was just told to not take it as precaution Home Medications Medication Instructions Recorded Confirmed Type aspirin 81 mg tablet,delayed 81 mg PO QAM 04/02/21 05/10/24 History release insulin detemir U-100 100 unit/mL 50 unit subcut BID 04/02/21 05/10/24 History (3 mL) subcutaneous pen (Levemir FlexTouch U-100 Insulin) metformin 1,000 mg tablet 1,000 mg PO BID 04/02/21 05/10/24 History metoprolol succinate 50 mg 50 mg PO QAM 04/02/21 05/10/24 History tablet,extended release 24 hr clopidogrel 75 mg tablet 75 mg PO QAM 01/12/23 05/10/24 History nortriptyline 25 mg capsule 0 mg PO HS 01/12/23 05/10/24 History pantoprazole 40 mg tablet,delayed 40 mg PO QAM 01/12/23 05/10/24 History release (Protonix) glipizide 5 mg tablet 5 mg PO BID 12/15/23 05/10/24 History Past Med/Surg History Problem List (Updated 05/10/24 @ 15:38 by Mer Minor DO) Chest pain (Acute) S/P below knee amputation Endotracheally intubated RVF (right ventricular failure) Acute and chronic respiratory failure Pressure ulcer of right foot, unstageable Ischemic foot CHF (congestive heart failure) COPD (chronic obstructive pulmonary disease) Chronic respiratory failure Acute hyperglycemia (Acute) Acute hyponatremia (Acute) Cellulitis of foot, right (Acute) PAD (peripheral artery disease) (Acute) Occlusion of right popliteal artery (Acute) CKD (chronic kidney disease) stage 2, GFR 60-89 ml/min DVT prophylaxis BETTE (obstructive sleep apnea) Type 2 diabetes mellitus Coronary artery disease (Acute) Hypertension Abnormal pulmonary finding Abnormal chest CT Acute respiratory failure with hypoxia Pneumonia Hypoxia (Acute) Mucus plugging of bronchi (Acute) Medical History Gangrene due to arterial insufficiency Septic shock Pulmonary hypertension Hyperlipidemia Family History Other Family history non-contributory Social History Smoking Status: Former smoker Tobacco Type: Cigarettes Cigarettes Per Day: na; Second Hand Exposure: Yes (son); Do You Dip or Chew Tobacco: No; Hx Alcohol Use: Yes (rarely) Hx Substance Use: No Preferred Language: Kiswahili Communication Ability: Effective Medical Records Field Technician Required: No Beliefs That Will Affect Care: None Current Living Situation: Family Current Living Situation Comment: with son and daughter inlaw How many Children do You have: 5 Feels Safe at Home: Yes Assistive Devices: Cane and Oxygen - Continuous Review of Systems 2 Review of Systems: All systems reviewed and are unremarkable except as noted in HPI and below. Denies fever, chills, fatigue, headache, nasal congestion, sore throat, cough, palpitations, orthopnea, PND, abdominal pain, n/v/d, constipation, dysuria, hematuria, frequency, back pain, joint pain or swelling, easy bruising or bleeding, skin lesions or rashes. Physical Exam 2 Physical Exam: GENERAL: 69 yo obese elderly M. NAD. EYES: EOMI. PERRLA. Anicteric. HENT: Moist mucous membranes. No scleral icterus. No cervical lymphadenopathy. LUNGS: Nonlabored. Mostly clear with few scattered expiratory wheezes. CARDIOVASCULAR: Regular rate and rhythm. ABDOMEN: Soft, non-tender and non-distended. BS normoactive x 4 quad. EXTREMITIES: S/P BKA of RLE. No edema. Non-tender. Peripheral pulses +2/4. NEUROLOGIC: A&O x3. No focal neurological deficits. CN II-XII grossly intact. PSYCHIATRIC: Cooperative. Appropriate mood and affect. SKIN: Warm, dry, intact. No rashes or lesions. Results & Data Results & Data Vital Signs (Past 12 Hours) Vital Signs Temp Pulse Pulse Resp BP BP Pulse Ox 05/10/24 17:48 84 16 173/98 H 94 05/10/24 16:04 69 16 143/99 H 97 05/10/24 15:07 87 18 99 05/10/24 15:05 75 18 145/96 H 99 05/10/24 12:54 05/10/24 12:54 36.8 C 87 20 136/94 99 O2 Del Method O2 Flow Rate 05/10/24 17:48 Nasal Cannula 5 05/10/24 16:04 Nasal Cannula 5 05/10/24 15:07 Room Air 6 05/10/24 15:05 Room Air 05/10/24 12:54 Nasal Cannula 6 05/10/24 12:54 Laboratory Results 05/10/24 13:21 05/10/24 13:21 Diagnostic Findings Chest X-Ray 05/10/24 12:58 XR chest 1V not portable HISTORY: 69 years-old Male Chest pain, nonspecific COMPARISON: 12/15/2023 TECHNIQUE: AP view chest FINDINGS: Cardiac silhouette is enlarged. Pulmonary vascular congestion with interstitial coarsening. Minimal bibasilar atelectasis. No pneumothorax, large pleural effusion or lobar airspace consolidation. Bones appear grossly intact. IMPRESSION: Cardiomegaly with pulmonary vascular congestion. ACT 112: Negative or not required by law. The above report was generated using voice recognition software. It may contain grammatical, syntax or spelling errors. Electronically signed by: Jas Ruiz M.D. 05/10/2024 2:23 PM ECG Additional Comments: NSR w/ sinus arrhythmia and RBBB. Code Status & VTE Plan Code Status Full - confirmed with patient VTE Prophylaxis Plan VTE Prophylaxis will be ordered: No PG Care Time/CCT Total # of Minutes Spent Total Time Spent with Patient: Total time spent is greater than 50% in coordination of care (as documented) at patient's floor/unit and/or counseling patient: 77 minutes Coding Level of Care Code 24300 INT INP/OBS CARE 3/75MIN Diagnoses Chronic diastolic congestive heart failure I50.32 Heart failure chronicity: chronic Heart failure type: diastolic Chest pain R07.9 S/P below knee amputation Z89.519 Chronic respiratory failure, unspecified whether with hypoxia or hypercapnia J96.10 Respiratory failure complication: unspecified whether with hypoxia or hypercapnia Type 2 diabetes mellitus with diabetic peripheral angiopathy and gangrene, with long-term current use of insulin E11.52; Z79.4 Diabetes mellitus complication status: with circulatory complication Diabetes mellitus longwall machine operator helper insulin use: with halfway use (1) CHF (congestive heart failure) Heart failure chronicity: chronic Heart failure type: diastolic Qualified Code(s): I50.32 - Chronic diastolic (congestive) heart failure (4) Chronic respiratory failure Respiratory failure complication: unspecified whether with hypoxia or hypercapnia Qualified Code(s): J96.10 - Chronic respiratory failure, unspecified whether with hypoxia or hypercapnia (5) Type 2 diabetes mellitus Diabetes mellitus complication status: with circulatory complication Diabetes mellitus halfway insulin use: with longwall machine operator helper use Qualified Code(s): E11.52 - Type 2 diabetes mellitus with diabetic peripheral angiopathy with gangrene; Z79.4 - snf (current) use of insulin
--- NOTE | 2024-05-10 18:30 | CT Scan Report ---
CT OF THE CHEST WITHOUT IV CONTRAST CLINICAL HISTORY: dyspnea, acute on chronic hypoxia, chf r/o pna COMPARISON STUDY: Chest CT January 12, 2023. Chest radiograph performed earlier today CT DOSE: 741.2 mGy.cm TECHNIQUE: Axial images of the chest were obtained without IV contrast. Images were reviewed in the axial, sagittal, and coronal planes. IV contrast was not administered for this examination. Automat ed exposure control was utilized for the study. A dose lowering technique was utilized adhering to t he principles of ALARA. FINDINGS: No enlarged axillary, mediastinal or hilar lymph nodes are present. The heart is moderatel y enlarged. There is no pericardial effusion. There is no pneumothorax or pleural effusion. Interlobu lar septal thickening is noted. There are mild groundglass opacities within lungs. Of note, there is a 9 mm calcified endobronchial density at the takeoff of the left upper lobe bronchus on image 86 of 209. There is moderate left upper lobe airspace opacity following loss. Visualized portions of the up per abdomen demonstrate small to moderate ascites. No suspicious pulmonary nodules are present. There is no consolidation to suggest pneumonia. Mild esophageal wall thickening is unchanged. IMPRESSION: 1. 9 mm calcified endobronchial density at the takeoff of the left upper lobe bronchus. Given moderat e left upper lobe opacity with volume loss suggestive of atelectasis, this abnormality may be partial ly obstructing. Pulmonary consultation for consideration for bronchoscopy is recommended. 2. Cardiomegaly with mild interstitial and alveolar pulmonary edema. 3. Mild to moderate upper abdominal ascites. 4. No evidence for pneumonia. ACT 112: Negative or not required by law. Electronically signed by: Thomas Monte M.D. 05/10/2024 6:28 PM
[2024-05-10] MEDS ORDERED: MAGNESIUM HYDROXIDE SUSP 30 ML UDC PO PRN (21:04)
[2024-05-10] MEDS ORDERED: GLUCAGON FOR INJ 1 MG VIAL SQ PRN (21:04)
[2024-05-10] MEDS ORDERED: GLUCOSE 40% GEL 15 GM TUBE PO PRN (21:04)
[2024-05-10] MEDS ORDERED: ALUMINUM/MAGNESIUM SUSP 30 ML UDC PO PRN (21:04)
[2024-05-10] MEDS ORDERED: GLUCOSE 10 TAB/TUBE PO PRN (21:04)
[2024-05-10] MEDS ORDERED: ACETAMINOPHEN 325 MG TAB PO PRN (21:04)
[2024-05-10] MEDS ORDERED: ONDANSETRON INJ 2 MG/ML 2 ML VIAL IV PRN (21:04)
[2024-05-10] MEDS: [UNRECOGNIZED DRUG - OTHER] SQ SCH (21:08)
[2024-05-10] MEDS: INSULIN DETEMIR U SQ SCH (21:08)
[2024-05-10] MEDS: INSULIN ASPART PER UNIT CHARGE SC SCH (21:08)
[2024-05-10] MEDS: ALBUT/IPRATROP 3MG/0.5MG NEB 3 ML VIAL NEB SCH (21:20)
[2024-05-10] MEDS: glipiZIDE 5 MG TAB PO SCH (21:46)
[2024-05-10] MEDS: NORTRIPTYLINE HCL 25 MG CAP PO SCH (21:46)
[2024-05-10] MEDS: CARBOHYDRATES FOR HYPOGLYCEMIA PO PRN (21:48)
[2024-05-10] MEDS: DEXTROSE 50% 50 ML SYRINGE IV PRN (22:30)
--- OUTSIDE RECORDS SUMMARY | 2024-05-11 00:16 | External Medical Summary ---
Author Name Unknown Address Unknown Organization K1F:[facility] - [address] [place] [address] Laboratory Report Ordering Provider Test Date Status SUSSYNICHOLAS 01/25/2024 06:05:00 Final Observation Date Value Abnormality Reference (Units ) Status SYNC LEUKOCYTES IN BLOOD BY AUTOMATED COUNT 01/25/2024 06:05:00 8.17 4.00-10.80 (K/uL) Final Segs 01/25/2024 06:05:00 55.3 40.0-75.0 (%) Final Lymphs % 01/25/2024 06:05:00 29.5 18.0-42.0 (%) Final Monos 01/25/2024 06:05:00 8.2 1.0-11.0 (%) Final Eosinophils 01/25/2024 06:05:00 6.0 0.0-6.0 (%) Final Basos 01/25/2024 06:05:00 0.6 0.0-2.0 (%) Final Immature Granulocyte, Percent 01/25/2024 06:05:00 0.4 0.0-2.0 (%) Final Absolute Segs 01/25/2024 06:05:00 4.52 1.80-7.70 (K/uL) Final Lymphs, absolute 01/25/2024 06:05:00 2.41 1.00-4.80 (K/ul) Final Monos, Abs 01/25/2024 06:05:00 0.67 0.00-1.10 (K/uL) Final Eos, Abs 01/25/2024 06:05:00 0.49 0.00-0.70 (K/uL) Final Basos, Abs 01/25/2024 06:05:00 0.05 0.00-0.20 (K/uL) Final Immature Granulocytes, Number 01/25/2024 06:05:00 0.03 0.00-0.20 (K/uL) Final Performing Location [facility] - [address] [place] [address]
--- OUTSIDE RECORDS SUMMARY | 2024-05-11 00:16 | External Medical Summary ---
Author Name Unknown Address Unknown Organization K1F:[facility] - [address] [place] [address] [address] [place] [address] Laboratory Report Ordering Provider Test Date Status TOMÁS YOUNGER 04/28/2024 21:08:18 Final Observation Date Value Abnormality Reference (Units ) Status WBC, Total 04/28/2024 21:08:18 14.37 Above high normal 4.00-10.80 (K/uL) Final RBC 04/28/2024 21:08:18 4.78 4.50-5.25 (M/uL) Final Hemoglobin 04/28/2024 21:08:18 11.8 Below low normal 14.0-16.8 (g/dL) Final HCT 04/28/2024 21:08:18 39.9 Below low normal 40.0-48.4 (%) Final MCV 04/28/2024 21:08:18 83.5 82.0-99.5 (fL) Final MCH 04/28/2024 21:08:18 24.7 27.0-34.0 (pg) Final MCHC 04/28/2024 21:08:18 29.6 32.0-36.0 (g/dL) Final RDW 04/28/2024 21:08:18 15.9 11.5-15.5 (%) Final Platelets 04/28/2024 21:08:18 290 140-400 (K/uL) Final MPV 04/28/2024 21:08:18 10.8 6.6-11.1 (fL) Final Nucleated erythrocytes/100 leukocytes [Ratio] in Blood by Automated count 04/28/2024 21:08:18 0 <=0 (/100 WBCs) Final Performing Location [facility] - [address] [place] [address]
--- OUTSIDE RECORDS SUMMARY | 2024-05-11 00:16 | External Medical Summary ---
Author Name Unknown Address Unknown Organization K1F:[facility] - [address] [place] [address] Laboratory Report Ordering Provider Test Date Status NICHOLAS HI 01/25/2024 06:05:00 Final Observation Date Value Abnormality Reference (Units ) Status BUN 01/25/2024 06:05:00 11 6-20 (mg/dL) Final Creatinine 01/25/2024 06:05:00 0.8 0.6-1.2 (mg/dL) Final Glomerular filtration rate/1.73 sq M.predicted [Volume Rate/Area] in Serum, Plasma or Blood by Creatinine-based formula (CKD-EPI) 01/25/2024 06:05:00 >90 >=60 (mL/min) Final eGFR is calculated based on the CKD-EPI 2020 equation Sodium 01/25/2024 06:05:00 143 135-146 (m mol/L) Final Potassium 01/25/2024 06:05:00 4.3 3.5-5.1 (m mol/L) Final Cl 01/25/2024 06:05:00 100 98-107 (mm ol/L) Final CO2 01/25/2024 06:05:00 33 Above high normal 22 -32 (mmol/L) Final Anion gap 01/25/2024 06:05:00 10 7-15 (mmol /L) Final Glucose 01/25/2024 06:05:00 129 Above high normal 70 -120 (mg/dL) Final Calcium 01/25/2024 06:05:00 9.4 8.4-10.2 ( mg/dL) Final Performing Location [facility] - [address] [place] [address]
--- OUTSIDE RECORDS SUMMARY | 2024-05-11 00:16 | External Medical Summary ---
Author Name Unknown Address Unknown Organization K1F:[facility] - [address] [place] [address] [address] [place] [address] Laboratory Report Ordering Provider Test Date Status TOMÁS YOUNGER 04/28/2024 21:08:18 Final Rheumatoid factor at a level above 50 IU/mL may lead to an overestimation of the D-dimer level. A normal D-dimer result (<0.50 ug/mL FEU) has a negative predictive value of approximately 95% for the exclusion of acute pulmonary embolism (PE) or deep vein thrombosis when there is low or moderate pretest PE probability. Increased D-dimer values are abnormal but do not indicate a specific disease state and the D-dimer increase does not definitively correlate with clinical severity of disease. Observation Date Value Abnormality Reference (Units ) Status Fibrin D-dimer FEU [Mass/volume] in Platelet poor plasma by Immunoassay 04/28/2024 21:08:18 1.70 Above high normal <0.50 (ug/mL FEU) Final Performing Location [facility] - [address] [facility] [address] [place] [address]
--- OUTSIDE RECORDS SUMMARY | 2024-05-11 00:16 | External Medical Summary ---
Author Name Unknown Address Unknown Organization K1F:[facility] - [address] [place] [address] Laboratory Report Ordering Provider Test Date Status NICHOLAS HI 01/25/2024 06:05:00 Final Observation Date Value Abnormality Reference (Units ) Status WBC, Total 01/25/2024 06:05:00 8.17 4.00-10.80 (K/uL) Final RBC 01/25/2024 06:05:00 4.50 4.50-5.25 (M/uL) Final Hemoglobin 01/25/2024 06:05:00 11.9 Below low normal 14.0-16.8 (g/dL) Final HCT 01/25/2024 06:05:00 40.3 40.0-48.4 (%) Final MCV 01/25/2024 06:05:00 89.6 82.0-99.5 (fL) Final MCH 01/25/2024 06:05:00 26.4 27.0-34.0 (pg) Final MCHC 01/25/2024 06:05:00 29.5 32.0-36.0 (g/dL) Final RDW 01/25/2024 06:05:00 16.1 11.5-15.5 (%) Final Platelets 01/25/2024 06:05:00 249 140-400 (K/uL) Final MPV 01/25/2024 06:05:00 11.4 6.6-11.1 (fL) Final Nucleated erythrocytes/100 leukocytes [Ratio] in Blood by Automated count 01/25/2024 06:05:00 0 <=0 (/100 WBCs) Final Performing Location [facility] - [address] [place] [address]
--- OUTSIDE RECORDS SUMMARY | 2024-05-11 00:16 | External Medical Summary | Summary of Care ---
Author Name Unknown Organization [facility] Address [address] [place] [address] Phone [phone] Care Team Providers Care Wireworker Name Role Phone Mckenna Fernando PA-C Primary Care Provide r Reason for Visit * Reason Comments Syncope * Auth/Cert Specialty Diagnoses / Procedures Referred By Contdestini t Referred To Contact [facility] [address] [place] [address] Phone: [phone] Emergency Medicine [facility] [address] [facility] [place] [address] Referral ID Status Reason Start Date Expiration Date Visits Re quested Visits Authorized [id number] Encounter Details Date Type Department Care Team (Late st Contact Info) Description 04/28/2024 8:59 PM EDT - 04/29/2024 8:49 AM EDT Emergency [facility] Emergency Department (GL) [address] [facility] [place] [id number] Faisal Ricketts DO [address] [facility] [place] [id number] Basilar artery occlusion (Primary Dx); Occlusion of both vertebral arteries; Stenosis of both internal carotid arteries; Syncope, unspecified syncope type Discharge Disposition: Short Term Hospital Allergies Active Allergy Reactions Criticality Noted Date Comments Empagliflozin 12/02/2022 hives documented as of this encounter (statuses as of 04/29/2024) Medications Medication Sig Dispensed Refills Start Date End Date Status aspirin enteric coated 81 MG TBEC Take 1 Tab by mouth daily. 60 Tab 10/04/2017 Active metFORMIN HCl 1000 MG Oral Tablet (Glucophage) Take 1 Tablet by mouth 2 times a day with morning and evening meals. Active Furosemide 40 MG Oral Tablet (Lasix) Take 1 Tablet by mouth in the morning and 1 Tablet before bedtime. Active Lisinopril 30 MG Oral Tablet Take 1 Tablet by mouth in the morning. Active glipiZIDE 5 MG Oral Tablet (Glucotrol) Take 1 Tablet by mouth in the morning. Active Levemir 100 UNIT/ML Subcutaneous Solution (insulin Detemir) Inject 60 Units under the skin 2 times a day in the morning and at bedtime. Active Rosuvastatin Calcium 10 MG Oral Tablet (Crestor) Take 1 Tablet by mouth daily. 06/07/2022 Active Farxiga 10 MG Oral Tablet (Dapagliflozin Propanediol) Take 1 Tablet by mouth daily. 01/18/2022 Active Clopidogrel Bisulfate 75 MG Oral Tablet (pLAVix) 1 Tablet. 01/12/2023 Active Omeprazole 40 MG Oral Capsule Delayed Release (PriLOSEC) Take 1 Capsule by mouth in the morning. Active oxygen IN GAS Use 4 L/min(Oxygen) as directed. Active Dakins (1/4 strength) 0.125 % External Solution Apply topically to affected area daily. Apply to right foot wound Active Metoprolol Succinate ER 50 MG Oral Tablet Extended Release 24 Hour (toPROL XL) Take 1 Tablet by mouth in the morning. 02/13/2023 Active Tamsulosin HCl 0.4 MG Oral Capsule (Flomax) TAKE 1 CAPSULE BY MOUTH IN THE MORNING. DO NOT START BEFORE DECEMBER 11, 2022 03/13/2023 Active Cilostazol 100 MG Oral Tablet (Pletal) Take 1 Tablet by mouth in the morning and 1 Tablet before bedtime. 02/13/2023 Active Silver sulfADIAZINE 1 % External Cream (Silvadene) Apply to right foot wound daily. 50 g 3 04/20/2023 Active Clindamycin HCl 300 MG Oral Capsule Take 1 Capsule by mouth in the morning and 1 Capsule at noon and 1 Capsule before bedtime. 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 Utilities Answer Date Recorded Do you have trouble paying y our heating, water, or electric bill? (Adult - for ages 18 years and over) Not on file 01/24/2024 Is your family able to pay t he heat, water, or electric bill? (Household - for ages 0-17 years) Not on file 01/24/2024 Does your family have access to good internet? (Household - for ages 0-17 years) Not on file 01/24/2024 Social Connections Answer Date Recorded How often do you feel lonely or isolated from those around you? (Adult - for ages 18 years and over) Not on file 01/24/2024 Sex and Gender Information Value Date Recorded Sex Assigned at Male 01/12/2023 2:33 AM EDT Gender Identity Male 01/12/2023 2:33 AM EDT Sexual Orientation Straight 01/12/2023 2: 33 AM EDT Job Start Date Occupation Industry Not on file Not on file Not on file documented as of this encounter Last Filed Vital Signs Vital Sign Reading Time Taken Comments Blood Pressure 118/81 04/29/2024 8:30 AM EDT Pulse 87 04/29/2024 8:30 AM EDT Temperature 36.9 C (98.4 F) 04/28/2024 9:07 PM ED T Respiratory Rate 16 04/29/2024 8:30 AM EDT Oxygen Saturation 94% 04/29/2024 3:00 AM EDT Inhaled Oxygen Concentration - - Weight 108.9 kg (240 lb) 04/28/2024 9:07 PM EDT Height - - Body Mass Index 36.49 01/11/2023 9:43 PM EDT documented in this encounter Functional Status Functional Status Response [...] (15 years old or older) No 12/07/19 23 Cognitive Status Response Date of Assessm ent Because of a physical, menta l, or emotional condition, do you have serious difficulty concentrating, remembering, or making decisions? (5 years old or older) No 12/06/2022 documented as of this encounter ED Notes * Faisal Ricketts, DO - 04/28/2024 9:22 PM EDT HISTORY OF PRESENT ILLNESS Oliverio Monte is a 69 year old male who presents to the ED for evaluation of Syncope. The patient was seen at 04/28/242100. Syncope Review of Systems Cardiovascular: Positive for syncope. This is a 69-year-old male with history of type 2 diabetes, chronic respiratory failure on 2 L of oxygen at baseline, hypertension, hyperlipidemia, COPD, CAD presenting for episode of syncope. Per EMS, patient was coming from home where he was at dinner this evening when he suddenly lost consciousness. Was lowered to the ground by family. Resolved spontaneously. Does report small amount of central chest discomfort as well as headache following the incident. Reports that just prior to the episode he was eating some Sinhala fries when he began coughing and then he felt dizzy, subsequently lost consciousness. Otherwise has felt well recently. Denies any associated fevers, chills, vision changes, shortness of breath, cough, back pain, abdominal pain, nausea, vomiting, diarrhea, urinary symptoms, focal weakness, or numbness. The patient's allergies, past history, and medications were reviewed. PHYSICAL EXAM Initial Vitals (see all): BP 117/73 | Pulse 87 | Resp 17 | Temp 98.4 | O2 91 %, Nasal Cannula | Weight 108.86 kg | Height 172.7 cm | Initial Pain Assessment (see all): 2 (mild pain)/10 ([facility] Scale 0-10) Physical Exam Vitals and nursing note reviewed. Constitutional: General: He is not in acute distress. Appearance: He is well-developed. HENT: Head: Normocephalic and atraumatic. Right Ear: External ear normal. Left Ear: External ear normal. Nose: Nose normal. No rhinorrhea. Mouth/Throat: Mouth: Mucous membranes are moist. Pharynx: Oropharynx is clear. No posterior oropharyngeal erythema. Eyes: Extraocular Movements: Extraocular movements intact. Conjunctiva/sclera: Conjunctivae normal. Pupils: Pupils are equal, round, and reactive to light. Cardiovascular: Rate and Rhythm: Normal rate and regular rhythm. Heart sounds: No murmur heard. Pulmonary: Effort: Pulmonary effort is normal. No respiratory distress. Breath sounds: Normal breath sounds. No stridor. No wheezing, rhonchi or rales. Abdominal: General: There is no distension. Palpations: Abdomen is soft. Tenderness: There is no abdominal tenderness. There is no right CVA tenderness, left CVA tenderness, guarding or rebound. Musculoskeletal: General: No swelling. Normal range of motion. Cervical back: Normal range of motion and neck supple. No tenderness. Skin: General: Skin is warm and dry. Capillary Refill: Capillary refill takes less than 2 seconds. Neurological: General: No focal deficit present. Mental Status: He is alert and oriented to person, place, and time. Sensory: No sensory deficit. Motor: No weakness. Psychiatric: Mood and Affect: Mood normal. PROCEDURES AND TREATMENTS ED Orders | ED Results MEDICAL DECISION MAKING Nursing notes and vital signs were reviewed. ED Course as of 04/29/24 1622 Sat Apr 28, [id number] Patient was evaluated. Afebrile and hemodynamically stable. Presenting following syncopal episode that occurred just prior to arrival. Mild headache now and mild chest pain during. No fall associated with this. Was lower to the ground. Some lightheadedness/dizziness prior to episode. Laboratory studies and imaging pending. [AH] 2124 EKG interpreted by me with normal sinus rhythm with a rate of 88bpm, no evidence of significant ST elevation, ST depressions, or significant dysrhythmia otherwise. [AH] 2138 CTA Head/CTA Neck No gross hemorrhage on my independent interpretation. [] 2139 D-Dimer(!): 1.70 PE study ordered. [AH] 2139 Troponin T, High Sensitivity(!): 49 [AH] 2234 CTA head/neck with evidence of vertebral and basilar artery occlusion though some areas of reconstitution. Has moderate to severe stenosis of bilateral ICAs. CT PE study pending though no evidence of large saddle or proximal pulmonary embolism on my independent interpretation. [] 2323 Troponin T, High Sensitivity(!): 50 Stable [] Sun Apr 29, 2024 0002 Discussed with Neurology who it was likely going to recommend admission for MRI though may recommend transfer for Neurosurgery evaluation. States that they will call back after reviewing the chart. [] 1000 Neurology had recommended transfer to [facility] and to maintain elevated blood pressure with IV fluids given the degree of vascular occlusion. Initially set up for transfer how shortly before this family arrived and stated that they wanted to patient transferred to [facility] for management there as they have had management of his other vascular conditions there. Patient agreed to this. Contacted [facility] through transfer center and accepted by neuroendovascular for transfer there. New EMTALA completed. Patient with no new symptoms while waiting in the ED for transport. [] ED Course User Index [] Faisal Ricketts DO Differential Diagnoses Based on my history, physical exam, and evaluation, the differential includes, but is not limited, to the following diagnoses: acute coronary syndrome, anemia, dehydration, dysrhythmia, electrolyte disorder, vertigo - central, vertigo - peripheral and Subarachnoid hemorrhage. Amount and/or Complexity of Data Reviewed Labs: ordered. Decision-making details documented in ED Course. Radiology: ordered. Decision-making details documented in ED Course. Risk OTC drugs. Prescription drug management. 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 The patient's condition at disposition was: . Comments ED Disposition Transferred Comment -- Faisal Ricketts * Mehrdad Barkley RN - 04/28/2024 9:00 PM EDT Pt presents to Ed with syncopal episode, followed by chest pain, SOB and nausea. Pt states headacheand mild chest pain currently, was given 4mg of zofran in EMS with improvement of nausea. Pt Aox4 currently, is on 2L of O2 at baseline. 18G IV placed EMS documented in this encounter Miscellaneous Notes * ED Family Nurse Practitioner Note - Yaneth Rubio RN - 04/29/2024 8:35 AM EDT 0835 Report given to OLESYA Flores business machines teacher. Care transferred to him at this time. 0854 Attempted to call report to [facility] , without answer. 0859 Report called to [facility]. * ED Family Nurse Practitioner Note - Kristin Vargas RN - 04/29/2024 2:30 AM EDT Patient is sleeping at this time in no acute distress. Pending transfer to [facility]. * ED Family Nurse Practitioner Note - Kristin Vargas RN - 04/28/2024 9:17 PM EDT Pts son at the bedside. States that the patient did have a fall today where he tripped on the dog and fell onto the dog. Denies any injuries from this fall and did not land on the floor. The patient then was sitting in the wheelchair this evening where his eyes rolled back and he started to shake and becomes unresponsive. The son lowered him to the floor and put a pillow behind his head and the patient continued to shake for 2-3 minutes. Pt does not have a seizure history. * ED Family Nurse Practitioner Note - Dodie Cartagena LPN - 04/28/2024 9:10 PM EDT Patient presents via ALS for syncopal episode, possible seizure activity, and chest pain. Patient on 2 lpm o2 chronically for COPD. Patient has EMS placed 18 g PIV in L. Forearm. EKG obtained, VS assessed, patient placed on CCM. Labs obtained per order. Dr. Ricketts and primary RN at bedside. Patient oriented to surroundings and call cabral system, call cabral within reach and use reinforced. documented in this encounter Plan of Treatment Scheduled Orders Name Type Priority Associated Diagnoses Orde r Schedule URINALYSIS, REFLEX TO CULTURE (NOT FOR NEUTROPENIC PATIENTS) Lab STAT One Time f or 1 Occurrences starting 04/28/2024 until 04/28/2024 URINALYSIS, REFLEX TO CULTURE (CUP ONLY) Lab STAT Once for 1 Oc currences starting 04/28/2024 until 04/28/2024 URINALYSIS, REFLEX TO CULTURE Lab STAT Once for 1 Occur rences starting 04/28/2024 until 04/28/2024 Health Maintenance Due Date Last Done Comments Pneumococcal Vaccine: 65+ Years (1 of 2 - PCV) 1961 Albumin/Creatinine Ratio 1973 Diabetic Eye Exam 1973 Diabetic Foot Exam 1973 Hepatitis C Screening 1973 DTap/Tdap Vaccines (1 - Tdap) 1974 Cologuard 02/24/2000 Colonoscopy 02/24/2000 Colorectal Cancer Screening 02/24/2000 Fecal Occult Blood Test 02/24/2000 Sigmoidoscopy 02/24/2000 Zoster Vaccines (1 of 2) 2005 Depression Screening 06/06/2018 06/06/2017 HbA1c 06/08/2023 12/06/2022, 10/01/2017 COVID-19 Vaccine (1 - season) 2024 Influenza Vaccine (FLU shot) (#1) 2024 GFR 04/28/2025 04/28/2024, 01/06, 01/03/2024, Additional history exists AAA Screening Completed 01/12/2023 HPV (Gardasil) Vaccine Aged Out No lo nger eligible based on patient's age to complete this topic Hepatitis B Vaccine Aged Out No longe r eligible based on patient's age to complete this topic MENINGOCOCCAL (MENACTRA/MENVEO) Aged Out No longer eligible based on patient's age to complete this topic documented as of this encounter Medical Devices Implanted Type Area Rotary Veneer Machine Operator Device Identifier Shelf Expiration Date Model / Serial / Lot Stent Peripheral 7 Diam [id number] - [id number] Implanted:Qty: 1 on 12/06/2022 by Jasper Laguerre MD at [facility] Right: [employer] : VASCULAR [id number] 06/07/2024 [id number] / / [id number] documented as of this encounter Procedures Procedure Name Priority Date/Time Associated Diagnosis Comments TROPONIN T, HIGH SENSITIVITY STAT 04/28/2024 10:[address] PULMONARY EMBOLUS W CONTRAST STAT 04/28/2024 9:50 PM EDT XR CHEST 2 VIEWS STAT 04/28/2024 9:48 PM EDT CTA HEAD/CTA NECK STAT 04/28/2024 9:4 0 PM EDT BLOOD GAS, VENOUS STAT 04/28/2024 9:2 7 PM EDT LACTATE WITH REFLEX IF ABNORMAL STAT 04/28/2024 9:08 PM EDT DIFFERENTIAL, AUTOMATED STAT 04/28/2024 9:08 PM EDT TROPONIN T, HIGH SENSITIVITY STAT 04/28/2024 9:08 PM EDT BNP (NT-PROBNP) STAT 04/28/2024 9:08 PM EDT COMPREHENSIVE METABOLIC PANEL STAT 04/28/2024 9:08 PM EDT D-DIMER STAT 04/28/2024 9:08 PM EDT CBC STAT 04/28/2024 9:08 PM EDT CBC STAT 04/28/2024 9:08 PM EDT GLUCOSE METER, POINT OF CARE GIOVANI 04/28/2024 9:05 PM EDT documented in this encounter Results * (ABNORMAL) TROPONIN T, HIGH SENSITIVITY (04/28/2024 10:23 PM EDT) Troponin T, High Sensitivity 50(H) <=22 ng/L 04/28/2024 11:06 PM EDT LABORATORY GL Blood Venous blood specimen / Unknown Venipuncture / Unknown 04/28/2024 10:23 PM EDT 04/28/2024 10:27 PM EDT Faisal Ricketts DO LAB BLOOD [place] [address] * CT PULMONARY EMBOLUS W CONTRAST (04/28/2024 9:50 PM EDT) Anatomical Region Laterality Modality Chest, Cardio, Body Computed Adolph ography 04/28/2024 9:40 PM EDT Impressions 04/28/2024 11:51 PM EDT IMPRESSION: 1. No evidence of a pulmonary embolism or acute cardiopulmonary disease. 2. Chronic left upper lobe bronchus intraluminal calcification with partial postobstructive atelectasis. 3. Partially imaged wall thickening suggested in the visualized portion of the gallbladder. Correlate clinically and consider right upper quadrant ultrasound. 4. 7 mm fissural nodule on the right minor fissure. Recommend follow-up CT Chest in 6-12 months. (References: Manolo and Angie) References: Tylerhovalerie H, et al. Guidelines for Management of Incidental Pulmonary Nodules Detected on CT Images: From the Fleischner Society 2017. Radiology. 2017;284(1):228-243. References: Angie Falcon, et al. Updated Fleischner Society Guidelines for Managing Incidental Pulmonary Nodules: Common Questions and Challenging Scenarios. Radiographics. 2018;38(5):0260-1665. THIS DOCUMENT HAS BEEN ELECTRONICALLY SIGNED BY REYNALDO WISE MD Narrative 04/28/2024 11:51 PM EDT PROCEDURE INFORMATION: Exam: CTA Chest With Contrast Exam date and time: 04/28/2024 9:40 PM Age: 69 years old Clinical indication: Abnormal findings; Abnormal diagnostic tests; Elevated d-dimer; Additional info: Syncope, elevated d-dimer, chest pain TECHNIQUE: Imaging protocol: Computed tomographic angiography of the chest with contrast. Exam focused on the arteries. 3D rendering (Not supervised by radiologist): MIP and/or 3D reconstructed images were created by the technologist. Radiation optimization: All CT scans at this facility use at least one of these dose optimization techniques: automated exposure control; mA and/or kV adjustment per patient size (includes targeted exams where dose is matched to clinical indication); or iterative reconstruction. Contrast material: ISOVUE 370; Contrast volume: 80 ml; Contrast route: INTRAVENOUS (IV); COMPARISON: DX XR CHEST 2 VIEWS 04/28/2024 9:27 PM FINDINGS: Pulmonary arteries: The pulmonary arteries are well opacified with contrast. No evidence of a pulmonary embolism. Aorta: There is atherosclerosis in the thoracic aorta without aneurysm or dissection. Lungs: There is focal calcification within the lumen of the left upper lobe bronchus with partial postobstructive atelectasis in the left upper lobe. This is similar in appearance, minimally increased from the remote prior comparison of 10/01/2017. There is a small fissural nodule along the right minor fissure measuring approximately 7 mm (image 44, series 4). Pleural spaces: No pneumothorax or pleural effusion. Heart: Cardiomegaly. No pericardial effusion.Coronary artery calcification is present. Lymph nodes: No enlarged mediastinal lymphadenopathy. Gallbladder and biliary ducts: Partially imaged wall thickening in the visualized portion of the gallbladder which is incompletely evaluated. Upper abdominal structures are otherwise unremarkable. Bones/joints: Minimal scattered degenerative changes of the visualized spine. No aggressive osseous lesion or fracture is seen. Soft tissues: The visualized superficial soft tissues have a normal appearance. Procedure Note Reynaldo Wise MD - 04/28/2024 PROCEDURE INFORMATION: Exam: CTA Chest With Contrast Exam date and time: 04/28/2024 9:40 PM Age: 69 years old Clinical indication: Abnormal findings; Abnormal diagnostic tests;Elevated d-dimer; Additional info: Syncope, elevated d-dimer, chest pain TECHNIQUE: Imaging protocol: Computed tomographic angiography of the chest withcontrast. Exam focused on the arteries. 3D rendering (Not supervised by radiologist): MIP and/or 3D reconstructed images were created by the technologist. Radiation optimization: All CT scans at this facility use at least one ofthese dose optimization techniques: automated exposure control; mA and/or kV adjustment per patient size (includes targeted exams where dose is matchedto clinical indication); or iterative reconstruction. Contrast material: ISOVUE 370; Contrast volume: 80 ml; Contrast route: INTRAVENOUS (IV); COMPARISON: DX XR CHEST 2 VIEWS 04/28/2024 9:27 PM FINDINGS: Pulmonary arteries: The pulmonary arteries are well opacified withcontrast. No evidence of a pulmonary embolism. Aorta: There is atherosclerosis in the thoracic aorta without aneurysm or dissection. Lungs: There is focal calcification within the lumen of the left upperlobe bronchus with partial postobstructive atelectasis in the left upper lobe.This is similar in appearance, minimally increased from the remote priorcomparison of 10/01/2017. There is a small fissural nodule along the right minorfissure measuring approximately 7 mm (image 44, series 4). Pleural spaces: No pneumothorax or pleural effusion. Heart: Cardiomegaly. No pericardial effusion.Coronary artery calcificationis present. Lymph nodes: No enlarged mediastinal lymphadenopathy. Gallbladder and biliary ducts: Partially imaged wall thickening in the visualized portion of the gallbladder which is incompletely evaluated.Upper abdominal structures are otherwise unremarkable. Bones/joints: Minimal scattered degenerative changes of the visualizedspine. No aggressive osseous lesion or fracture is seen. Soft tissues: The visualized superficial soft tissues have a normalappearance. IMPRESSION IMPRESSION: 1. No evidence of a pulmonary embolism or acute cardiopulmonarydisease. 2. Chronic left upper lobe bronchus intraluminal calcification withpartial postobstructive atelectasis. 3. Partially imaged wall thickening suggested in the visualized portionof the gallbladder. Correlate clinically and consider right upper quadrantultrasound. 4. 7 mm fissural nodule on the right minor fissure. Recommend follow-upCT Chest in 6-12 months. (References: Manolo and Angie) References: Manolo De Leon, et al. Guidelines for Management of Incidental Pulmonary Nodules Detected on CT Images: From the Fleischner Society 2017. Radiology. 2017;284(1):228-243. References: Angie Falcon et al. Updated Fleischner Society Guidelines forManaging Incidental Pulmonary Nodules: Common Questions and Challenging Scenarios. Radiographics. 2018;38(5):7855-0383. THIS DOCUMENT HAS BEEN ELECTRONICALLY SIGNED BY REYNALDO WISE MD Faisal Ricketts DO RAD CT * XR CHEST 2 VIEWS (04/28/2024 9:48 PM EDT) Anatomical Region Laterality Modality Chest Digital Radiogra phy 04/28/2024 9:27 PM EDT Impressions 04/28/2024 11:41 PM EDT IMPRESSION: 1. Minimal nonspecific pulmonary opacity in the left mid lung field. This could represent atelectasis or infiltrate. THIS DOCUMENT HAS BEEN ELECTRONICALLY SIGNED BY REYNALDO WISE MD Narrative 04/28/2024 11:41 PM EDT PROCEDURE INFORMATION: Exam: XR Chest Exam date and time: 04/28/2024 9:27 PM Age: 69 years old Clinical indication: Other: Syncope TECHNIQUE: Imaging protocol: Radiologic exam of the chest. Views: 2 views. COMPARISON: DX XR CHEST 1 VIEW 01/11/2023 10:53 PM FINDINGS: Lungs: Minimal opacity suggested in the left mid lung field. Pleural spaces: No pneumothorax or pleural effusion. Heart/Mediastinum: Cardiomegaly. Bones/joints: Degenerative changes of both acromioclavicular joints. Regional osseous structures are otherwise unremarkable. Procedure Note Reynaldo Wise MD - 04/28/2024 PROCEDURE INFORMATION: Exam: XR Chest Exam date and time: 04/28/2024 9:27 PM Age: 69 years old Clinical indication: Other: Syncope TECHNIQUE: Imaging protocol: Radiologic exam of the chest. Views: 2 views. COMPARISON: DX XR CHEST 1 VIEW 01/11/2023 10:53 PM FINDINGS: Lungs: Minimal opacity suggested in the left mid lung field. Pleural spaces: No pneumothorax or pleural effusion. Heart/Mediastinum: Cardiomegaly. Bones/joints: Degenerative changes of both acromioclavicular joints.Regional osseous structures are otherwise unremarkable. IMPRESSION IMPRESSION: 1. Minimal nonspecific pulmonary opacity in the left mid lung field.This could represent atelectasis or infiltrate. THIS DOCUMENT HAS BEEN ELECTRONICALLY SIGNED BY REYNALDO WISE MD [facility] RADIOLOGY (RAD GENER AL) * CTA HEAD/CTA NECK (04/28/2024 9:40 PM EDT) Anatomical Region Laterality Modality Neck, Head, Cspine, Spine Comput ed Tomography 04/28/2024 10:0 0 PM EDT Impressions 04/28/2024 9:58 PM EDT IMPRESSION 1. 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 2. 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 3. Occluded left vertebral artery with some reconstituted flow noted more cranially as detailed above. 4. Approximately 75% stenosis of the proximal cervical segment of the left internal carotid artery. 5. Approximately 60% stenosis of the proximal cervical segment of the right internal carotid artery. 6. No acute intracranial finding on noncontrast CT. 7. Chronic findings, as above. Narrative 04/28/2024 9:[address] HEAD WITHOUT CONTRAST - 04/28/2024 9:40 pm CTA HEAD/CTA NECK - 04/28/2024 9:40 pm HISTORY syncope; headache; r/o SAH COMPARISON None TECHNIQUE Axial images obtained through the head without contrast. CT angiography was performed using thin helical acquisition with dynamic bolus contrast injection of the head and neck, and 2-D and 3-D reconstructed images are provided. FINDINGS CT HEAD WITHOUT CONTRAST: No acute intracranial hemorrhage, focal edema, mass effect or midline shift is identified. There is patchy lucency in the bilateral cerebral white matter which most commonly represents chronic small vessel ischemic change. Eagle-white matter differentiation is otherwise preserved. Intracranial atherosclerosis is noted. There is diffuse cerebral volume loss with proportionate enlargement of ventricles and sulci. No space-occupying mass lesions are identified on noncontrast CT. There is no hydrocephalus. No abnormal extraaxial fluid collections are identified. The bony calvarium is unremarkable. The intraorbital contents show no acute abnormality. The visualized paranasal sinuses and mastoid air cells are clear. CTA HEAD AND NECK: Arch and mediastinum: The aortic arch is of normal caliber and there is normal anatomy of the great vessel origins. Anterior circulation: On the right side the common carotid artery is of normal caliber. There is approximately 60% stenosis of the proximal cervical segment of the internal carotid artery due to atherosclerosis. There is least mild atherosclerotic narrowing of the intracranial portion of the right ICA. The right middle cerebral artery and anterior cerebral artery appear patent. On the left side, the common carotid artery is of normal caliber. There is a proximally 75% stenosis of the proximal cervical segment of the ICA due to atherosclerosis. There is a least moderate atherosclerotic stenosis involving the supraclinoid portion of the ICA. The left anterior cerebral artery and middle cerebral artery appear patent. Posterior circulation: The right vertebral artery is dominant. The left vertebral artery is occluded in the proximal V1 segment with some reconstituted flow noted in the V2 segment however no flow in the V3 or proximal V4 segment. Some reconstituted flow is seen in the distal left V4 segment. The right V4 segment is occluded. The proximal basilar artery is occluded. Some reconstituted flow is noted more cranially by a persistent origin of bilateral posterior cerebral arteries. The superior cerebellar arteries are diminutive but appear grossly patent. Both posterior cerebral arteries appear patent. There is satisfactory enhancement of the dural venous sinuses, superficial and deep systems. There is no evidence of aneurysm, vascular malformation, or hemodynamically significant stenosis. Mild atelectatic changes are noted in the left upper lobe. Slight interlobular septal thickening is also seen in the lung apices. There is mild peribronchial thickening with scattered small airway endoluminal impaction. Procedure Note Spencer Ash MD - 04/28/[address] HEAD WITHOUT CONTRAST - 04/28/2024 9:40 pm CTA HEAD/CTA NECK - 04/28/2024 9:40 pm HISTORY syncope; headache; r/o SAH COMPARISON None TECHNIQUE Axial images obtained through the head without contrast. CT angiography was performed using thin helical acquisition with dynamicbolus contrast injection of the head and neck, and 2-D and 3-Dreconstructed images are provided. FINDINGS CT HEAD WITHOUT CONTRAST: No acute intracranial hemorrhage, focal edema, mass effect or midlineshift is identified. There is patchy lucency in the bilateral cerebralwhite matter which most commonly represents chronic small vessel ischemicchange. Eagle-white matter differentiation is otherwise preserved.Intracranial atherosclerosis is noted. There is diffuse cerebral volumeloss with proportionate enlargement of ventricles and sulci. Nospace-occupying mass lesions are identified on noncontrast CT. There is nohydrocephalus. No abnormal extraaxial fluid collections are identified. The bony calvarium is unremarkable. The intraorbital contents show noacute abnormality. The visualized paranasal sinuses and mastoid air cellsare clear. CTA HEAD AND NECK: Arch and mediastinum: The aortic arch is of normal caliber and there is normal anatomy of thegreat vessel origins. Anterior circulation: On the right side the common carotid artery is of normal caliber. There is approximately 60% stenosis of the proximal cervical segment ofthe internal carotid artery due to atherosclerosis. There is least mild atherosclerotic narrowing of the intracranial portionof the right ICA. The right middle cerebral artery and anterior cerebralartery appear patent. On the left side, the common carotid artery is of normal caliber. There is a proximally 75% stenosis of the proximal cervical segment of theICA due to atherosclerosis. There is a least moderate atherosclerotic stenosis involving thesupraclinoid portion of the ICA. The left anterior cerebral artery andmiddle cerebral artery appear patent. Posterior circulation: The right vertebral artery is dominant. The left vertebral artery isoccluded in the proximal V1 segment with some reconstituted flow noted inthe V2 segment however no flow in the V3 or proximal V4 segment. Somereconstituted flow is seen in the distal left V4 segment. The right [id number] is occluded. The proximal basilar artery is occluded. Somereconstituted flow is noted more cranially by a persistent origin ofbilateral posterior cerebral arteries. The superior cerebellar arteriesare diminutive but appear grossly patent. Both posterior cerebralarteries appear patent. There is satisfactory enhancement of the dural venous sinuses, superficialand deep systems. There is no evidence of aneurysm, vascular malformation, orhemodynamically significant stenosis. Mild atelectatic changes are noted in the left upper lobe. Slightinterlobular septal thickening is also seen in the lung apices. There ismild peribronchial thickening with scattered small airway endoluminalimpaction. IMPRESSION IMPRESSION 1. 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 2. 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 3. Occluded left vertebral artery with some reconstituted flow noted morecranially as detailed above. 4. Approximately 75% stenosis of the proximal cervical segment of the leftinternal carotid artery. 5. Approximately 60% stenosis of the proximal cervical segment of theright internal carotid artery. 6. No acute intracranial finding on noncontrast CT. 7. Chronic findings, as above. Faisal Ricketts DO RAD CT * (ABNORMAL) BLOOD GAS, VENOUS (04/28/2024 9:27 PM EDT) Temperature 37.0 C 04/28/2024 9:34 PM EDT LAB[facility]ATORY [facility] pH, Venous 7.306(L) 7.320 - 7.430 units 04/28/2024 9:34 PM EDT [facility] pCO2, Venous 65.7(H) 40.0 - 60.0 mmHg 04/28/2024 9:34 PM EDT [facility] pO2, Venous 44.6 25.0 - 50.0 mmHg 04/28/2024 9:34 PM EDT [facility] Base Excess, Venous 4.4(H) -2.0 - 2.0 mmol/L 04/28/2024 9:34 PM EDT [facility] HGB 11.3(L) 14.0 - 16.8 g/dL 04/28/2024 9:34 PM EDT [facility] Oxyhemoglobin, Venous 68.6 40.0 - 85.0 % total Hgb 04/28/2024 9:34 PM EDT [facility] Carboxyhemoglobi n, Whole Blood 1.3 <=1.5 % total Hgb 04/28/2024 9:34 PM EDT [facility] Comment:Smokers: 0-9.0 % Methemoglobin, Whole Blood 0.5 <=1.5 % total Hgb 04/28/2024 9:34 PM EDT [facility] Reduced Hemoglobin, Venous 29.6 % total Hgb 04/28/2024 9:34 PM EDT [facility] O2 Content, Venous 10.9 7.0 - 18.0 %vol 04/28/2024 9:34 PM EDT [facility] Bicarbonate, Whole Blood 31.8(H) 23.0 - 31.0 mmol/L 04/28/2024 9:34 PM EDT [facility] Blood Venous blood specimen / Unknown Venipuncture / Unknown 04/28/2024 9:27 PM EDT 04/28/2024 9:31 PM EDT Faisal Ricketts DO LAB BLOOD ORDERABLES LABORATORY [facility] [address] [place] [address] * (ABNORMAL) DIFFERENTIAL, AUTOMATED (04/28/2024 9:08 PM EDT) WBC 14.37(H) 4.00 - 10.80 K/uL 04/28/2024 9:14 PM EDT LABORATORY GL Neutrophils % 69.2 40.0 - 75.0 % 04/28/2024 9:14 PM EDT [facility] Lymphocytes % 17.2(L) 18.0 - 42.0 % 04/28/2024 9:14 PM EDT [facility] Monocytes % 7.8 1.0 - 11.0 % 04/28/2024 9:14 PM EDT [facility] Eosinophils % 4.6 0.0 - 6.0 % 04/28/2024 9:14 PM EDT LABORATORY GL Basophils % 0.7 0.0 - 2.0 % 04/28/2024 9:14 PM EDT LABORATORY GL Immature Granulocytes % 0.5 0.0 - 2.0 % 04/28/2024 9:14 PM EDT LABORATORY GL Absolute Neutrophils 9.95(H) 1.80 - 7.70 K/uL 04/28/2024 9:14 PM EDT LABORATORY GL Absolute Lymphocytes 2.47 1.00 - 4.80 K/ul 04/28/2024 9:14 PM EDT LABORATORY GL Absolute Monocytes 1.12(H) 0.00 - 1.10 K/uL 04/28/2024 9:14 PM EDT LABORATORY GL Absolute Eosinophils 0.66 0.00 - 0.70 K/uL 04/28/2024 9:14 PM EDT LABORATORY GL Absolute Basophils 0.10 0.00 - 0.20 K/uL 04/28/2024 9:14 PM EDT LABORATORY GL Absolute Immature Granulocytes 0.07 0.00 - 0.20 K/uL 04/28/2024 9:14 PM EDT LABORATORY GL Blood Venous blood specimen / Unknown Venipuncture / Unknown 04/28/2024 9:08 PM EDT 04/28/2024 9:11 PM EDT Faisal Ricketts LAB BLOOD ORDERABLES LABORATORY [facility] [address] [place] [address] * (ABNORMAL) CBC (04/28/2024 9:08 PM EDT) WBC 14.37(H) 4.00 - 10.80 K/uL 04/28/2024 9:14 PM EDT LABORATORY [facility] RBC 4.78 4.50 - 5.25 M/uL 04/28/2024 9:14 PM EDT LABORATORY [facility] HGB 11.8(L) 14.0 - 16.8 g/dL 04/28/2024 9:14 PM EDT LABORATORY GL HCT 39.9(L) 40.0 - 48.4 % 04/28/2024 9:14 PM EDT LABORATORY [facility] MCV 83.5 82.0 - 99.5 fL 04/28/2024 9:14 PM EDT LABORATORY [facility] MCH 24.7 27.0 - 34.0 pg 04/28/2024 9:14 PM EDT LABORATORY [facility] MCHC 29.6 32.0 - 36.0 g/dL 04/28/2024 9:14 PM EDT LABORATORY [facility] RDW 15.9 11.5 - 15.5 % 04/28/2024 9:14 PM EDT LABORATORY [facility] PLT 290 140 - 400 K/uL 04/28/2024 9:14 PM EDT LABORATORY [facility] MPV 10.8 6.6 - 11.1 fL 04/28/2024 9:14 PM EDT LABORATORY [facility] nRBCs 0 <=0 /100 WBCs 04/28/2024 9:14 PM EDT LABORATORY [facility] Blood Venous blood specimen / Unknown Venipuncture / Unknown 04/28/2024 9:08 PM EDT 04/28/2024 9:11 PM EDT Faisal Ricketts LAB BLOOD ORDERABLES LABORATORY [address] [address] * LACTATE WITH REFLEX IF ABNORMAL (04/28/2024 9:08 PM EDT) Pathologist [facility] Lactate 1.4 0.4 - 2.0 mmol/L 04/28/2024 9:30 PM EDT LABORATORY [facility] Blood Venous blood specimen / Unknown Venipuncture / Unknown 04/28/2024 9:08 PM EDT 04/28/2024 9:12 PM EDT [facility] LAB BLOOD ORDERABLES Performing Organization Address [facility] Co de Phone Number LABORATORY [address] [phone] * (ABNORMAL) BNP, NT-PRO (04/28/2024 9:08 PM EDT) [facility] BNP, NT-Pro 1,137(H) <300 pg/mL 04/28/2024 9:42 PM EDT LABORATORY [facility] Blood Venous blood specimen / Unknown Venipuncture / Unknown 04/28/2024 9:08 PM EDT 04/28/2024 9:12 PM EDT Narrative LABORATORY [facility] - 04/28/2024 9:42 PM EDT Exclude Heart Failure: <300 pg/mL Diagnose Heart Failure: Age <50 yr: >450 pg/mL 50-75 yr: >900 pg/mL >75 yr: >1800 pg/mL GFR is 30-59 mL/min: >1200 pg/mL or Age-adjusted values GFR <30 mL/min: do not use, not reliable Prognostic threshold: 1000 pg/mL [facility] LAB BLOOD ORDERABLES Performing Organization Address [facility] Co de Phone Number LABORATORY [address] [address] * (ABNORMAL) TROPONIN T, HIGH SENSITIVITY (04/28/2024 9:08 PM EDT) Pathologist [facility] Troponin T, High Sensitivity 49(H) <=22 ng/L 04/28/2024 9:31 PM EDT LABORATORY [facility] Blood Venous blood specimen / Unknown Venipuncture / Unknown 04/28/2024 9:08 PM EDT 04/28/2024 9:12 PM EDT Faisal Ricketts DO LAB BLOOD ORDERABLES [facility] [address] [place] [address] * (ABNORMAL) COMPREHENSIVE METABOLIC PANEL (04/28/2024 9:08 PM EDT) BUN 26(H) 6 - 20 mg/dL 04/28/2024 9:42 PM EDT [facility] CREATININE 1.1 0.6 - 1.2 mg/dL 04/28/2024 9:42 PM EDT [facility] EGFR 70 >=60 mL/min 04/28/2024 9:42 PM EDT [facility] Comment:eGFR is calculated b ased on the CKD-EPI 2020 equation. SODIUM 137 135 - 146 mmol/L 04/28/2024 9:42 PM EDT [facility] POTASSIUM 4.6 3.5 - 5.1 mmol/L 04/28/2024 9:42 PM EDT [facility] CHLORIDE 99 98 - 107 mmol/L 04/28/2024 9:42 PM EDT [facility] CO2 29 22 - 32 mmol/L 04/28/2024 9:42 PM EDT [facility] ANION GAP 9 7 - 15 mmol/L 04/28/2024 9:42 PM EDT [facility] GLUCOSE 167(H) 70 - 120 mg/dL 04/28/2024 9:42 PM EDT [facility] Albumin 4.1 3.8 - 5.0 g/dL 04/28/2024 9:42 PM EDT [facility] AST 13 10 - 50 U/L 04/28/2024 9:42 PM EDT [facility] Comment:Results may be false ly elevated due to hemolysis. Alkaline Phosphatase 91 35 - 130 U/L 04/28/2024 9:42 PM EDT [facility] Bilirubin, Total 0.2 <=1.2 mg/dL 04/28/2024 9:42 PM EDT [facility] CALCIUM 9.6 8.4 - 10.2 mg/dL 04/28/2024 9:42 PM EDT [facility] Protein 7.0 6.0 - 8.3 g/dL 04/28/2024 9:42 PM EDT LABORATORY GL ALT 10 10 - 50 U/L 04/28/2024 9:42 PM EDT LABORATORY [facility] Blood Venous blood specimen / Unknown Venipuncture / Unknown 04/28/2024 9:08 PM EDT 04/28/2024 9:12 PM EDT Faisal Ricketts LAB BLOOD ORDERABLES Performing Organization Address [facility] Co de Phone Number LABORATORY [address] [address] * (ABNORMAL) D-DIMER (04/28/2024 9:08 PM EDT) Pathologist [facility] D-Dimer 1.70(H) <0.50 ug/mL FEU 04/28/2024 9:30 PM EDT LABORATORY [facility] Blood Venous blood specimen / Unknown Venipuncture / Unknown 04/28/2024 9:08 PM EDT 04/28/2024 9:12 PM EDT Narrative LABORATORY [facility] - 04/28/2024 9:30 PM EDT Rheumatoid factor at a level above 50 [...] definitively correlate with clinical severity of disease. Faisal Ricketts LAB BLOOD ORDERABLES Performing Organization Address [facility] de Phone Number LABORATORY [address] [address] * (ABNORMAL) GLUCOSE METER, POINT OF CARE (04/28/2024 9:05 PM EDT) GLUCOSE - POCT 156(H) 70 - 120 mg/dL 04/28/2024 9:07 PM EDT [facility] Device Comment Notified Provider 04/28/2024 9:07 PM EDT [facility] Blood Whole blood specimen / Unknown 04/28/2024 9:05 PM EDT 04/28/2024 9:07 PM EDT Faisal Ricketts DO LAB POINT OF CARE TE ST DOCKED DEVICE UNSOLICITED RESULTS [facility] [address] [facility] [place] [address] documented in this encounter Visit Diagnoses Diagnosis 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 Given 04/28/2024 10:21 PM EDT 975 mg albuterol-ipratropium (Duoneb) inhalation solution 3 mL 3 mL, Nebulizer, ONCE, On 04/28/24 at 2215, For 1 dose, 3 mL = 0.5 mg ipratropium/ 2.5 mg albuterol Given 04/28/2024 9:52 PM EDT 3 mL Iopamidol (Isovue 370) inj 80 mL 80 mL, Intravenous, ONCE, On 04/28/24 at 2215, For 1 dose, Radiology Medication Routing (Non-IR) Given 04/28/2024 10:15 PM EDT 80 mL Iopamidol (Isovue 370) inj 80 mL 80 mL, Intravenous, ONCE, On 04/28/24 at 2230, For 1 dose, Radiology Medication Routing (Non-IR) Given 04/28/2024 10:30 PM EDT 80 mL isolyte 1,000 mL bolus infusion Intravenous, at 1,000 mL/hr Administer over 60 Minutes, Administer entire volume within 60 minutes or less. Plasma-LYTE 148, isolyte-S, and isolyte-S pH 7.4 are considered equivalent - including for MAR barcode scanning., ONCE, 1 dose, On 04/29/24 at 0045 New Bag 04/29/2024 12:38 AM EDT 1,000 mL 1000 mL/hr NSS 0.9% 500 mL bolus infusion Intravenous, at 500 mL/hr Administer over 60 Minutes, Administer entire volume within 60 minutes or less., ONCE, 1 dose, On 04/28/24 at 2215 New Bag 04/28/2024 10:15 PM EDT 500 mL 500 mL/hr documented in this encounter Active and Recently Administered Medications Times are shown in EDT. Scheduled Medication Order 04/27/2024 04/28/2024 04/29/2024 Acetaminophen (Tylenol) tab 975 mg (COMPLETED) 975 mg, Oral, ONCE, On 04/28/24 at 2300, For 1 dose, Maximum of 4 grams (4000 mg) per day. 2220 (Given - Provider: Kristin Vargas RN) albuterol-ipratropium (Duoneb) inhalation solution 3 mL (COMPLETED) 3 mL, Nebulizer, ONCE, On 04/28/24 at 2215, For 1 dose, 3 mL = 0.5 mg ipratropium/ 2.5 mg albuterol 2151 (Given - Provider: Romeo Spain, MANAGER INTERVENTIONAL) Iopamidol (Isovue 370) inj 80 mL (COMPLETED) 80 mL, Intravenous, ONCE, On 04/28/24 at 2215, For 1 dose, Radiology Medication Routing (Non-IR) 2214 (Given - Provider: Rock Palm, RT (R)) Iopamidol (Isovue 370) inj 80 mL (COMPLETED) 80 mL, Intravenous, ONCE, On 04/28/24 at 2230, For 1 dose, Radiology Medication Routing (Non-IR) 2229 (Given - Provider: Rock Palm, (R)) isolyte 1,000 mL bolus infusion (COMPLETED) Intravenous, at 1,000 mL/hr Administer over 60 Minutes, Administer entire volume within 60 minutes or less. Plasma-LYTE 148, isolyte-S, and isolyte-S pH 7.4 are considered equivalent - including for MAR barcode scanning., ONCE, 1 dose, On 04/29/24 at 0045 0038 (New Bag - Provider: Dodie Cartagena LPN)0138 (Stopped - Provider: Kristin Vargas RN) NSS 0.9% 500 mL bolus infusion (COMPLETED) Intravenous, at 500 mL/hr Administer over 60 Minutes, Administer entire volume within 60 minutes or less., ONCE, 1 dose, On 04/28/24 at 2215 2215 (New Bag - Provider: Kristin Vargas RN)2315 (Stopped - Provider: Kristin Vargas RN) documented in this encounter Advance Directives * Full Code (Latest Code Status on File) Date Activated Date Inactivated Comments 12/06/2022 12:48 AM 12/10/2022 9:20 PM This order re flects the patients wishes and were consensually agreed upon. Question Answer Comments Discussion of Advance Directives occurred with: Patient * Full Code Date Activated Date Inactivated Comments 10/01/2017 2:33 PM 10/03/2017 4:49 PM This order r eflects the patients wishes and were consensually agreed upon. Question Answer Comments Discussion of Advance Directives occurred with: Not Discussed Does the patient have a Living Will? No Does the patient have Health Care Power of Attor boom? No Care Teams Wireworker Relationship Specialty Start Date End Date Mckenna Fernando PA-C [address] [place] [address], [place] [id number] PCP - General Physician Creative Art Director 11/05/22 documented as of this encounter"
--- OUTSIDE RECORDS SUMMARY | 2024-05-11 00:16 | External Medical Summary ---
Author Name Unknown Address Unknown Organization K1F:LABORATORY [facility] - [address] [place] [address] Laboratory Report Ordering Provider Test Date Status TOMÁS YOUNGER 04/28/2024 21:08:18 Final Exclude Heart Failure: <300 pg/mL
Diagnose Heart Failure:
Age <50 yr: >450 pg/mL
50-75 yr: >900 pg/mL
>75 yr: >1800 pg/mL
GFR is 30-59 mL/min: >1200 pg/mL or Age- adjusted values
GFR <30 mL/min: do not use, not reliable

Prognostic threshold: 1000 pg/mL Observation Date Value Abnormality Reference (Units ) Status BNP, Pro-hormone 04/28/2024 21:08:18 1137 Above high no rmal <300 (pg/mL) Final Performing Location LABORATORY [facility] - [address] [place] [address]
--- OUTSIDE RECORDS SUMMARY | 2024-05-11 00:16 | External Medical Summary ---
Author Name Unknown Address Unknown Organization K1F:LABORATORY [facility] - [address] [place] [address] Laboratory Report Ordering Provider Test Date Status TOMÁS YOUNGER 04/28/2024 21:08:18 Final Observation Date Value Abnormality Reference (Units ) Status BUN 04/28/2024 21:08:18 26 Above high normal 6-20 (mg/dL) Final Creatinine 04/28/2024 21:08:18 1.1 0.6-1.2 (mg/dL) Final Glomerular filtration rate/1.73 sq M.predicted [Volume Rate/Area] in Serum, Plasma or Blood by Creatinine-based formula (CKD-EPI) 04/28/2024 21:08:18 70 >=60 (mL/min) Final eGFR is calculated based on the CKD-EPI 2020 equation. Sodium 04/28/2024 21:08:18 137 135-146 (m mol/L) Final Potassium 04/28/2024 21:08:18 4.6 3.5-5.1 (m mol/L) Final Cl 04/28/2024 21:08:18 99 98-107 (mm ol/L) Final CO2 04/28/2024 21:08:18 29 22-32 (mmo l/L) Final Anion gap 04/28/2024 21:08:18 9 7-15 (mmol /L) Final Glucose 04/28/2024 21:08:18 167 Above high normal 70 -120 (mg/dL) Final Albumin 04/28/2024 21:08:18 4.1 3.8-5.0 (g /dL) Final AST (Aspartate aminotransferase) 04/28/2024 21:08:18 13 10-50 (U/L) Fin al Results may be falsely eleva jose due to hemolysis. Alk Phos 04/28/2024 21:08:18 91 35-130 (U/ L) Final Bilirubin, Total 04/28/2024 21:08:18 0.2 <=1 .2 (mg/dL) Final Calcium 04/28/2024 21:08:18 9.6 8.4-10.2 ( mg/dL) Final Protein 04/28/2024 21:08:18 7.0 6.0-8.3 (g /dL) Final ALT (Alanine aminotransferase) 04/28/2024 21:08:18 10 10-50 (U/L) Final Performing Location LABORATORY [facility] - [facility] [address] [place] [address]
--- OUTSIDE RECORDS SUMMARY | 2024-05-11 00:16 | External Medical Summary ---
Author Name Unknown Address Unknown Organization K1F:LAB[facility]ATORY [facility] - [address] [place] [address] Laboratory Report Ordering Provider Test Date Status TOMÁS YOUNGER 04/28/2024 21:08:18 Final Observation Date Value Abnormality Reference (Units ) Status Lactic Acid 04/28/2024 21:08:18 1.4 0.4-2.0 (mmol/L) Final Performing Location LAB[facility]ATORY [facility] - [address] [place] [address]
--- OUTSIDE RECORDS SUMMARY | 2024-05-11 00:16 | External Medical Summary ---
Author Name Unknown Address Unknown Organization : Laboratory Report Ordering Provider Test Date Status TOMÁS YOUNGER 04/28/2024 21:05:41 Final Observation Date Value Abnormality Reference (Units) Status Glucose Point of Care 04/28/2024 21:05:41 156 Above high normal 70-120 (mg/dL) Final POCT DEVICE COMMENT 04/28/2024 21:05:41 Notified Provider Final Performing Location
--- OUTSIDE RECORDS SUMMARY | 2024-05-11 00:16 | External Medical Summary ---
Author Name Unknown Address Unknown Organization K1F:LABORATORY [facility] - [address] [place] [address] Laboratory Report Ordering Provider Test Date Status TOMÁS YOUNGER 04/28/2024 21:08:18 Final Observation Date Value Abnormality Reference (Units ) Status Troponin T 04/28/2024 21:08:18 49 Above high normal < =22 (ng/L) Final Performing Location LABORATORY [facility] - [address] [place] [address]
--- OUTSIDE RECORDS SUMMARY | 2024-05-11 00:16 | External Medical Summary | Continuity of Care Document ---
Author Name Unknown Organization [facility] [address] [facility] Address [address] [place], [place] [id number] Care Team Providers Care Block Sorter Name Role Phone Kayla Fernando Primary Care Physician [phone] [id number] Date(s): 02/02/24 - 02/02/24 [facility] [address], [address] [place] [address] [phone] Encounter Diagnosis S/P BKA (below knee amputation) unilateral(Discharge Diagnosis) - 02/02/24 Discharge Disposition: Home or Self Care Attending Physician: LORENA Horan Lynn Referring Physician: AUDREY Walter Thad J Allergies, Adverse Reactions, Alerts Substance Criticality Severity Reaction Reaction Severity Status Jardiance dizziness, nausea Ac tive Assessment and Plan Extracted from: Title:Clinical Document Author:LORENA Horan Lynn Date:02/02/24 I OUTPATIENT NOTE Name: LILLIAM SAEED Patient Number: [id number] : 1955 Date of Service: 02/02/2024 Chief Complaint: _Follow-up to evaluate right leg BKA HPI: _Mr. Saeed is a middle-age male who presents to Dr. Greenberg vascular surgery clinic today regarding his right leg below-knee amputation site. As you may remember the patient is status post right leg below-knee amputation due to an ischemic right leg which occurred almost 6 weeks ago at [facility]. Patient has been in inpatient rehab until a few days ago. He unfortunately suffered at least 2 falls onto his BKA site since his discharge from the hospital, and his home nurses became concerned with redness and drainage from the surgical site 2 days ago and called here for an evaluation. Patient self denies any fevers chills nausea vomiting, increased drainage, increased redness, increased swelling, warmth, or increased pain. He does unfortunately continue to have some discomfort, stating that his right leg BKA site will ache when he tries to sleep at night. He states he has tried Tylenol and ibuprofen without relief. Current Home Meds: (Last Updated 02/01 13:39) aspirin (aspirin 81 mg oral tablet, chewable) 81 mg PO Daily atorvastatin (atorvastatin 20 mg oral tablet) 20 mg PO Daily clopidogrel (clopidogrel 75 mg oral tablet) 75 mg PO Daily cyclobenzaprine (cyclobenzaprine 5 mg oral tablet) 5 mg PO tid PRN: as needed for spasm diabetes supplies (One Touch Delica Plus (30G) [...] TABLET glipiZIDE (glipiZIDE 5 mg oral tablet) 1 tab PO bid insulin glargine (Lantus Solostar Pen 100 units/mL subcutaneous solution) 50 unit subQ Daily lisinopril (lisinopril 30 mg oral tablet) 1 tab PO Daily metFORMIN (metFORMIN 1000 mg oral tablet) 1 tab PO bid metoprolol (Metoprolol Succinate ER 50 mg oral tablet, extended release) 1 tab PO Daily nitroglycerin (nitroglycerin 0.4 mg sublingual tablet) 0.4 mg SL q5min PRN: Chest Pain nortriptyline (nortriptyline 25 mg oral capsule) 1 cap PO qhs oxyCODONE (oxyCODONE 5 mg oral tablet) 5 mg PO q6h PRN: as needed for pain syringe needles (BD needle Ultra-Fine Pen Etta 32G x 4mm) To be used with insulin injections twice daily. syringe needles (BD needle Ultra-Fine Pen 29G x 0.5") Use as directed with insulin. Max ____/day.Use new pen needle with each injection. 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 Tobacco user Peripheral arterial disease with history of revascularization Benign hypertension with coincident congestive heart failure Type 2 diabetes mellitus with diabetic peripheral angiopathy and gangrene, with long-term current use of insulin Atherosclerosis of [place] arteries of extremities with intermittent claudication, bilateral legs Chronic respiratory failure with hypoxia, on home oxygen therapy Chronic diastolic (congestive) heart failure BETTE (obstructive sleep apnea) Nonocclusive coronary atherosclerosis of [place] coronary artery Hyperlipidemia Diabetic peripheral neuropathy associated with type 2 diabetes mellitus OBJECTIVE Vitals: Last Updated 02/02/24 13:38 Date Temp BP Location Pulse RR SpO2 Pain 02/02/24 138/72 Right Arm 95 93 11/10/23 36.5 132/76 Left Arm, Manu 76 20 95 0 10/13/23 0 Vital Signs are the last 3 documented. [...] are the last 3 documented. Physical Exam Constitutional general patient is an overweight but healthy-appearing well- nourished well-developed middle-aged male in no distress. His right leg below-knee amputation site does have some skin jabs over portions of the incision, and 1 small area in the center which is superficially open with good granulation. The wounds appear generally dry, there is minimal erythema at the edges of the wound, but this is faint erythema and more consistent with recently healing skin. There is no large hematoma or ecchymosis. There is no warmth or odor, there is no necrosis. ASSESSMENT: _ PLAN: _ 1 ) _status post right leg BKA Overall Mr. Franklin right leg below-knee amputation site appears to be healing as expected, particularly after suffering 2 falls onto the area since his discharge. There is no sign of overt infection, although we would be happy to reevaluate him if things should worsen. In the meantime he is advised to keep a dry dressing over the wound and continue with the John wrap for support until he is able to get the stump beauty culture teacher device. He was already scheduled to be seen here in another 2 weeks or so, we will encourage him to keep that appointment, but call if there are further questions or concerns. We will send him some oxycodone 5 mg tablets to the pharmacy for him to take at night due to the pain he experiences at that time. He is agreeable to this plan. Thank you for letting us participate in the care of this patient. Medications aspirin 81 mg oral tablet, chewable Start: 06/24/20 1:08:00 PM EST, 1 tab, PO, Daily, Disp# 90 tab, Refills: 3, Pharmacy: [id number] Start Date: 06/24/20 Status: Ordered atorvastatin 20 mg oral tablet Start: 01/30/24 7:14:00 AM EDT, 1 tab, PO, Daily, Disp# 90 tab, Refills: 3, Pharmacy: [id number] Start Date: 01/30/24 Status: Ordered BD needle Ultra-Fine Pen 29G x 0.5" Start: 11/02/22 1:45:00 PM EDT, See Instructions, Disp# 100 each, Refills: 5, Use as directed with insulin. Max ____/day. Use new pen needle with each injection., Pharmacy: [facility] #[id number] Start Date: 11/02/22 Status: Ordered BD needle Ultra-Fine Pen Etta 32G x 4mm Start: 12/11/21 9:41:00 AM EDT, See Instructions, Disp# 100 each, Refills: 3, To be used with insulininjections twice daily., Note to Pharmacy: ICD-10: E11.42, Pharmacy: [facility] #[id number] Start Date: 12/11/21 Status: Ordered clopidogrel 75 mg oral tablet Start: 04/08/23 1:05:00 PM EDT, 1 tab, PO, Daily, Disp# 90 tab, Refills: 3, Pharmacy: [id number] Start Date: 04/08/23 Status: Ordered cyclobenzaprine 5 mg oral tablet Start: 01/30/24 7:14:00 AM EDT, 1 tab, PO, tid, Disp# 30 tab, Refills: 1, PRN: as needed for spasm, Pharmacy: [id number] Start Date: 01/30/24 Status: Ordered furosemide 40 mg oral tablet Start: 05/09/23 9:59:00 AM EDT, 1 tab, PO, Daily, Disp# 90 tab, Refills: 3, IF WEIGHT INCREASES OVERNIGHT 2-3 POUNDS OR 4-5 POUNDS PER WEEK, TAKE 1 EXTRA TABLET, Pharmacy: [place] [id number] Start Date: 05/09/23 Status: Ordered glipiZIDE 5 mg oral tablet Start: 12/26/23 7:14:00 AM EDT, 1 tab, PO, bid, Disp# 60 tab, Refills: 11, Pharmacy: [place] [id number] Start Date: 12/26/23 Status: Ordered Lantus Solostar Pen 100 units/mL subcutaneous solution Start: 01/10/24 3:43:00 PM EDT, 50 unit =, subQ, Daily Start Date: 01/10/24 Status: Ordered lisinopril 30 mg oral tablet Start: 01/23/24 9:41:00 AM EDT, 1 tab, PO, Daily, Disp# 90 tab, Refills: 3, Pharmacy: [place] [id number] Start Date: 01/23/24 Status: Ordered metFORMIN 1000 mg oral tablet Start: 01/23/24 9:41:00 AM EDT, 1 tab, PO, bid, Disp# 180 tab, Refills: 3, Pharmacy: [place] [id number] Start Date: 01/23/24 Status: Ordered Metoprolol Succinate ER 50 mg oral tablet, extended release Start: 01/23/24 9:41:00 AM EDT, 1 tab, PO, Daily, Disp# 90 tab, Refills: 3, Pharmacy: [facility] 160 Start Date: 01/23/24 Status: Ordered nitroglycerin 0.4 mg sublingual tablet Start: 06/24/20 1:08:00 PM EST, 1 tab, SL, q5min, Disp# 25 tab, Refills: 3, PRN: Chest Pain, Pharmacy: [facility] #[id number] Start Date: 06/24/20 Status: Ordered nortriptyline 25 mg oral capsule Start: 11/28/23 11:48:00 AM EDT, 1 cap, PO, qhs, Disp# 30 cap, Refills: 11, Pharmacy: [id number] Start Date: 11/28/23 Status: Ordered One Touch Delica (33G) Lancets Start: 08/07/18 9:27:22 AM EST, See Instructions, Disp# 300 unit, Refills: 3, Test blood sugar before meals and at bedtime, [id number] Start Date: 08/07/18 Status: Ordered One Touch Delica Plus (30G) Lancets Start: 12/11/21 9:41:00 AM EDT, See Instructions, Disp# 300 each, Refills: 3, Use to test blood sugarTID. Dx Code E11.42, [id number] Start Date: 12/11/21 Status: Ordered One Touch Verio Glucose Monitor Start: 10/05/17 11:22:00 AM EST, See Instructions, Disp# 1 each, Test blood sugar before meals and at bedtime, Pharmacy: [facility] Start Date: 10/05/17 Status: Ordered One Touch Verio Test Strips Start: 12/11/21 9:41:00 AM EDT, See Instructions, Disp# 300 each, Refills: 3, Use to test blood sugarthree times daily, Note to Pharmacy: ICD-10: E11.42, [id number] Start Date: 12/11/21 Status: Ordered oxyCODONE 5 mg oral tablet Start: 02/02/24 1:38:00 PM EDT, 1 tab, PO, q6h, Disp# 30 tab, Refills: 0, PRN: as needed for pain, Pharmacy: [facility] Start Date: 02/02/24 Status: Ordered Problem List Condition Confirmation Course Effective Dates Status Health Status Informant Below knee amputation Confirmed Active Amputation of fifth toe of right foot Confirmed Active Benign hypertension with coincident congestive heart failure Confirmed Active Chronic diastolic (congestive) heart failure Confirmed Active Chronic respiratory failure with hypoxia, on home oxygen therapy Confirmed Active Nonocclusive coronary atherosclerosis of [place] coronary artery Confirmed Active Diabetic peripheral neuropathy associated with type 2 diabetes mellitus Confirmed Active S/P BKA (below knee amputation) unilateral Confirmed Active Hyperlipidemia Confirmed Active Atherosclerosis of [place] arteries of extremities with intermittent claudication, bilateral legs Confirmed Active BETTE (obstructive sleep apnea) Confirmed Active Peripheral arterial disease with history of revascularization Confirmed Active Tobacco user Confirmed Active Type 2 diabetes mellitus with diabetic peripheral angiopathy and gangrene, with long-term current use of insulin Confirmed Active Diagnosis Diagnosis Type Effective Dates Health Status Clinical Service Informant S/P BKA (below knee amputation) unilateral Discharge Diagnosis 02/02/24 Procedures Procedure Date Related Diagnosis Body Site Status BKA - Below knee amputation 1 12/14/23 Completed RLE Angiogram, attempted thrombectomy 12/09/23 Completed Insertion of popliteal artery stent 2 10/27/23 Completed Chest x-ray 3 01/12/[address] angiography of chest with contrast 4 01/12/[address] of abdomen and pelvis 5 01/12/23 Completed Amputation of toe and metatarsal 6 12/06/22 Completed MRI of right foot 7 11/23/22 Compl eted X-ray of right foot 8 11/05/22 Com pleted Cardiac catheterization 10/03/17 C ompleted [address] [place] [address] 2[facility] 3[facility] Impression: 1. Cardiomegaly without radiographic evidence of congestive failure 2. Right basiar opacities are similar to previous and likely represent scarring/atelectasis. Correlate clinically for evidence of a superimposed pneumonitis 4[facility] Impression: 1. No pulmonary emboli identified 2. Subsegmental bilateral atelectasis 3. No lymphadenopathy [facility] Impression: 1. No acute abnormality. incidental note is made of diverticulosis without diverticulitis 6[facility] Right 5th toe 7[facility] Impression: 1. No evidence of osteomyelitis or abscess 8[facility] Impression: 1. No focal cortical erosion/osteolysis or agressive periosteal reaction identified to suggest osteomyelitis. No fracture or bone lesion. Scattered zruj-mw-pweegmbz osteoarthritis. Plantar calcaneal spur. Achilles enthesophytes Vital Signs Most recent to oldest [Reference Range]: 1 Heart Rate 95 bpm (02/02/24 1:38 PM) Blood Pressure 138/72mmHg (02/02/24 1:38 PM) Cuff Pulse Pressure 66 mmHg (02/02/24 1:38 PM) BP Location # 1 Right Arm (02/02/24 1:38 PM) Social History Social History Type Response Tobacco Former smoker, Cigar ettes Smoking Status Current every day he ed smoker Sex Male [facility] Outpt Note * LORENA Horan Lynn: PERFORM Event Display: [facility] Outpt Note Authored Date: [id number] [facility] OUTPATIENT NOTE Name: LILLIAM SAEED Patient Number: [id number] : 1955 Date of Service: 02/02/2024 Chief Complaint: _Follow-up to evaluate right leg BKA HPI: _Mr. Saeed is a middle-age male who presents to Dr. Greenberg vascular surgery clinic today regarding his right leg below-knee amputation site. As you may remember the patient is status post right leg below-knee amputation due to an ischemic right leg which occurred almost 6 weeks ago at [facility]. Patient has been in inpatient rehab until a few days ago. He unfortunatelysuffered at least 2 falls onto his BKA site since his discharge from the hospital, and his home nurses became concerned with redness and drainage from the surgical site 2 days ago and called here bushra evaluation. Patient self denies any fevers chills nausea vomiting, increased drainage, increasedredness, increased swelling, warmth, or increased pain. He does unfortunately continue to have somediscomfort, stating that his right leg BKA site will ache when he tries to sleep at night. He states he has tried Tylenol and ibuprofen without relief. Current Home Meds: (Last Updated 02/01 13:39) aspirin (aspirin 81 mg oral tablet, chewable) 81 mg PO Daily atorvastatin (atorvastatin 20 mg oral tablet) 20 mg PO Daily clopidogrel (clopidogrel 75 mg oral tablet) 75 mg PO Daily cyclobenzaprine (cyclobenzaprine 5 mg oral tablet) 5 mg PO tid PRN: as needed for spasm diabetes supplies (One Touch Delica Plus (30G) [...] TABLET glipiZIDE (glipiZIDE 5 mg oral tablet) 1 tab PO bid insulin glargine (Lantus Solostar Pen 100 units/mL subcutaneous solution) 50 unit subQ Daily lisinopril (lisinopril 30 mg oral tablet) 1 tab PO Daily metFORMIN (metFORMIN 1000 mg oral tablet) 1 tab PO bid metoprolol (Metoprolol Succinate ER 50 mg oral tablet, extended release) 1 tab PO Daily nitroglycerin (nitroglycerin 0.4 mg sublingual tablet) 0.4 mg SL q5min PRN: Chest Pain nortriptyline (nortriptyline 25 mg oral capsule) 1 cap PO qhs oxyCODONE (oxyCODONE 5 mg oral tablet) 5 mg PO q6h PRN: as needed for pain syringe needles (BD needle Ultra-Fine Pen Etta 32G x 4mm) To be used with insulin injections twice daily. syringe needles (BD needle Ultra-Fine Pen 29G x 0.5") Use as directed with insulin. Max ____/day.Use new pen needle with each injection. 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 Tobacco user Peripheral arterial disease with history of revascularization Benign hypertension with coincident congestive heart failure Type 2 diabetes mellitus with diabetic peripheral angiopathy and gangrene, with long-term current use of insulin Atherosclerosis of [place] arteries of extremities with intermittent claudication, bilateral legs Chronic respiratory failure with hypoxia, on home oxygen therapy Chronic diastolic (congestive) heart failure BETTE (obstructive sleep apnea) Nonocclusive coronary atherosclerosis of [place] coronary artery Hyperlipidemia Diabetic peripheral neuropathy associated with type 2 diabetes mellitus OBJECTIVE Vitals: Last Updated 02/02/24 13:38 Date Temp BP Location Pulse RR SpO2 Pain 02/02/24 138/72 Right Arm 95 93 11/10/23 36.5 132/76 Left Arm, Manu 76 20 95 0 10/13/23 0 Vital Signs are the last 3 documented. [...] are the last 3 documented. Physical Exam Constitutional general patient is an overweight but healthy-appearing well- nourished gitm-bisxxupwjkzucwi-zoux male in no distress. His right leg below- knee amputation site does have some skin jabs over portions of the incision, and 1 small area in the center which is superficially open with good granulation. The wounds appear generally dry, there is minimal erythema at the edges of the wound, but this is faint erythema and more consistent with recently healing skin. There is no large hematomaor ecchymosis. There is no warmth or odor, there is no necrosis. ASSESSMENT: _ PLAN: _ 1 ) _status post right leg BKA Overall Mr. Franklin right leg below-knee amputation site appears to be healing as expected, particularly after suffering 2 falls onto the area since his discharge. There is no sign of overt infection, although we would be happy to reevaluate him if things should worsen. In the meantime he is advised to keep a dry dressing over the wound and continue with the John wrap for support until he is able to get the stump beauty culture teacher device. He was already scheduled to be seen here in another 2 weeks or so, we will encourage him to keep that appointment, but call if there are further questions or concerns. We will send him some oxycodone 5 mg tablets to the pharmacy for him to take at night due to the pain he experiences at that time. He is agreeable to this plan. Thank you for letting us participate in the care of this patient. Electronic Signature on File CC: Kayla Fernando PA-C,[facility] [address] [facility] [address] [place] [address] Electronically Reviewed/Signed by: Melissa Horan PA-C Author Signature Dt/Tm:02/02/2024 02:05 PM [facility] [place] [address], [address] [place] [address] LM Patient Care team information Care Team Personnel Name: AUDREY Enrique Terra L Position: Nurse Pract - Vascular Surg Member Role: Lifetime Relationship Address: Address: [address] [facility] [address] [address] [place] [address] [place] Name: Prasanna Wilson Catherine Position: Pharmacist Member Role: Pharmacy - Lifetime Address: Address: [facility] [address] [place] [address] [place] Name: LORENA Gaston Bridget M Position: Physician Nurse Substance Abuse - Vascular Surg Member Role: Lifetime Relationship Address: Address: [address] [facility] [address] [place] [address] [place] Name: LORENA Horan Lynn Position: Physician Nurse Substance Abuse Exempt - Vasc Surg Member Role: Lifetime Relationship Address: Address: [address] [place] [address] [place] Name: LORENA Fernando Jessica A Position: Physician Asst Exmpt - Family Med Member Role: Primary Care Provider Address: Address: [address] [place] [address] [place] Care Team Related Persons Name: KAYLA SAEED Address: home [address] [place] [address] Name: LILLIAM SAEED Address: home [address] [facility] [place] [phone] Name: KAYLA AU Address: home [address] [place] [phone]
--- OUTSIDE RECORDS SUMMARY | 2024-05-11 00:16 | External Medical Summary ---
Author Name Unknown Address Unknown Organization K1[facility] - [address] [place] [address] Laboratory Report Ordering Provider Test Date Status TOMÁS YOUNGER 04/28/2024 21:08:18 Final Observation Date Value Abnormality Reference (Units ) Status SYNC LEUKOCYTES IN BLOOD BY AUTOMATED COUNT 04/28/2024 21:08:18 14.37 Above high normal 4.00-10.80 (K/uL) Final Segs 04/28/2024 21:08:18 69.2 40.0-75.0 (%) Final Lymphs % 04/28/2024 21:08:18 17.2 Below low normal 18.0-42.0 (%) Final Monos 04/28/2024 21:08:18 7.8 1.0-11.0 (%) Final Eosinophils 04/28/2024 21:08:18 4.6 0.0-6.0 (%) Final Basos 04/28/2024 21:08:18 0.7 0.0-2.0 (%) Final Immature Granulocyte, Percent 04/28/2024 21:08:18 0.5 0.0-2.0 (%) Final Absolute Segs 04/28/2024 21:08:18 9.95 Above high normal 1.80-7.70 (K/uL) Final Lymphs, absolute 04/28/2024 21:08:18 2.47 1.00-4.80 (K/ul) Final Monos, Abs 04/28/2024 21:08:18 1.12 Above high normal 0.00-1.10 (K/uL) Final Eos, Abs 04/28/2024 21:08:18 0.66 0.00-0.70 (K/uL) Final Basos, Abs 04/28/2024 21:08:18 0.10 0.00-0.20 (K/uL) Final Immature Granulocytes, Number 04/28/2024 21:08:18 0.07 0.00-0.20 (K/uL) Final Performing Location [facility]ORY [facility] - [address] [address]
--- OUTSIDE RECORDS SUMMARY | 2024-05-11 00:16 | External Medical Summary | Continuity of Care Document ---
Author Name Unknown Organization [facility] Address [address] [place], [place] [id number] Care Team Providers Care Relaster Name Role Phone MeganstacieKayla kinney Primary Care Physician [phone] Encounter [facility] SETHR [id number] Date(s): 03/22/24 - 03/22/24 [facility] [address], [address] [place] [address] [phone] Encounter Diagnosis Below knee amputation(Discharge Diagnosis) - 03/22/24 Peripheral arterial disease(Discharge Diagnosis) - 03/22/24 Discharge Disposition: Home or Self Care Attending Physician: LORENA Horan Lynn Referring Physician: AUDREY Walter Thad J Allergies, Adverse Reactions, Alerts Substance Criticality Severity Reaction Reaction Severity Status Jardiance dizziness, nausea Ac tive Assessment and Plan Extracted from: Title:Clinical Document Author:LORENA Horan Lynn Date:03/22/24 [facility] OUTPATIENT NOTE Name: LILLIAM SAEED Patient Number: [id number] : 1955 Date of Service: 03/22/2024 Chief Complaint: _Follow-up for right leg BKA HPI: _Mr. Saeed is an elderly male who presents to Dr. Greenberg's vascular surgery clinic today for follow-up visit regarding his right leg below-knee amputation site. Patient is known to have severe peripheral arterial disease. Patient is now 3- month status post right leg below-knee amputation due to an ischemic leg. He unfortunately had a few falls on his stump which have prolong his healing time. Patient states overall he is doing well. He denies any new complaints or concerns related to his below-knee amputation. He denies any complaints or concerns of his left leg. 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 Current Home Meds: (Last Updated 03/22 14:46) aspirin (aspirin 81 mg oral tablet, chewable) [...] mg oral capsule) 1 cap PO qhs syringe needles (BD needle Ultra-Fine Pen Etta [...] long-term current use of insulin Atherosclerosis of [place] arteries of extremities with intermittent claudication, bilateral legs Chronic respiratory failure with hypoxia, on home oxygen therapy Chronic diastolic (congestive) heart failure BETTE (obstructive sleep apnea) Nonocclusive coronary atherosclerosis of [place] coronary artery Hyperlipidemia Diabetic peripheral neuropathy associated with type 2 diabetes mellitus OBJECTIVE Vitals: Last Updated 03/22/24 14:48 Date Temp BP Location Pulse RR SpO2 Pain 03/22/24 126/80 93 88 02/16/24 124/78 Right Arm 88 93 02/16/24 0 Vital Signs are the last 3 [...] Exam Constitutional: In general patient is a healthy-appearing elderly male no distress. He is alert and oriented any focal deficits. His right leg BKA site is well- healed with a few large scabs over the surgical wound, these removed today without any bleeding or dehiscence of the wound. There are no open areas. There is no erythema or concerning findings. ASSESSMENT: _ PLAN: _ 1 ) _right leg below-knee amputation due to ischemic leg Patient is overall doing well since being seen here about a month ago. 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 He is ready to begin the process for his BKA prosthesis. 2 ) _peripheral arterial disease Patient did have a severe peripheral arterial disease of the right lower extremity, resulting in an ischemic leg in his below-knee amputation. His left leg has not been formally evaluated in the recent history. We recommend that he return to our office in 3 months for reevaluation of his BKA site, as well as a left leg arterial ultrasound. He does not have any significant complaints related to the left leg at this time, but is not currently ambulating due to his right BKA. I have personally spent_27__ minutes performing anii-ru-pirh and hmo-vpnh-li-face activities on this date of service.Time does not include separately reported services. Activities Include: x__ review of the medical record _x_ obtaining a history _x_ physical exam/evaluation __ [...] Daily, Disp# 90 tab, Refills: 3, Pharmacy: [facility]/pharmacy #[id number] Start Date: 06/24/20 Status: Ordered atorvastatin 20 mg oral tablet Start: 01/30/24 7:14:00 AM EDT, 1 tab, PO, Daily, Disp# 90 tab, Refills: 3, Pharmacy: [id number] Start Date: 01/30/24 Status: Ordered BD needle Ultra-Fine Pen 29G x 0.5" Start: 11/02/22 1:45:00 PM EDT, See Instructions, Disp# 100 each, Refills: 5, Use as directed with insulin. Max ____/day. Use new pen needle with each injection., Pharmacy: [facility]/pharmacy #[id number] Start Date: 11/02/22 Status: Ordered BD needle Ultra-Fine Pen Etta 32G x 4mm Start: 12/11/21 9:41:00 AM EDT, See Instructions, Disp# 100 each, Refills: 3, To be used with insulininjections twice daily., Note to Pharmacy: ICD-10: E11.42, Pharmacy: [facility]/pharmacy #[id number] Start Date: 12/11/21 Status: Ordered clopidogrel 75 mg oral tablet Start: 04/08/23 1:05:00 PM EDT, 1 tab, PO, Daily, Disp# 90 tab, Refills: 3, Pharmacy: [id number] Start Date: 04/08/23 Status: Ordered cyclobenzaprine 5 mg oral tablet Start: 01/30/24 7:14:00 AM EDT, 1 tab, PO, tid, Disp# 30 tab, Refills: 1, PRN: as needed for spasm, Pharmacy: [facility] [id number] Start Date: 01/30/24 Status: Ordered furosemide 40 mg oral tablet Start: 05/09/23 9:59:00 AM EDT, 1 tab, PO, Daily, Disp# 90 tab, Refills: 3, IF WEIGHT INCREASES OVERNIGHT 2-3 POUNDS OR 4-5 POUNDS PER WEEK, TAKE 1 EXTRA TABLET, Pharmacy: [facility] [id number] Start Date: 05/09/23 Status: Ordered glipiZIDE 5 mg oral tablet Start: 12/26/23 7:14:00 AM EDT, 1 tab, PO, bid, Disp# 60 tab, Refills: 11, Pharmacy: [facility] 160 Start Date: 12/26/23 Status: Ordered Lantus Solostar Pen 100 units/mL subcutaneous solution Start: 01/10/24 3:43:00 PM EDT, 50 unit =, subQ, Daily Start Date: 01/10/24 Status: Ordered lisinopril 30 mg oral tablet Start: 01/23/24 9:41:00 AM EDT, 1 tab, PO, Daily, Disp# 90 tab, Refills: 3, Pharmacy: [facility] [id number] Start Date: 01/23/24 Status: Ordered metFORMIN 1000 mg oral tablet Start: 01/23/24 9:41:00 AM EDT, 1 tab, PO, bid, Disp# 180 tab, Refills: 3, Pharmacy: [facility] [id number] Start Date: 01/23/24 Status: Ordered Metoprolol Succinate ER 50 mg oral tablet, extended release Start: 01/23/24 9:41:00 AM EDT, 1 tab, PO, Daily, Disp# 90 tab, Refills: 3, Pharmacy: [facility] [id number] Start Date: 01/23/24 Status: Ordered nitroglycerin 0.4 mg sublingual tablet Start: 06/24/20 1:08:00 PM EST, 1 tab, SL, q5min, Disp# 25 tab, Refills: 3, PRN: Chest Pain, Pharmacy: [facility]/pharmacy #[id number] Start Date: 06/24/20 Status: Ordered nortriptyline 25 mg oral capsule Start: 11/28/23 11:48:00 AM EDT, 1 cap, PO, qhs, Disp# 30 cap, Refills: 11, Pharmacy: [id number] Start Date: 11/28/23 Status: Ordered One Touch Delica (33G) Lancets Start: 08/07/18 9:27:22 AM EST, See Instructions, Disp# 300 unit, Refills: 3, Test blood sugar before meals and at bedtime, Pharmacy: [facility]/pharmacy #[id number] Start Date: 08/07/18 Status: Ordered One Touch Delica Plus (30G) Lancets Start: 12/11/21 9:41:00 AM EDT, See Instructions, Disp# 300 each, Refills: 3, Use to test blood sugarTID. Dx Code E11.42, Pharmacy: [facility]/pharmacy #[id number] Start Date: 12/11/21 Status: Ordered One Touch Verio Glucose Monitor Start: 10/05/17 11:22:00 AM EST, See Instructions, Disp# 1 each, Test blood sugar before meals and at bedtime, Pharmacy: [facility] [place] Start Date: 10/05/17 Status: Ordered One Touch Verio Test Strips Start: 12/11/21 9:41:00 AM EDT, See Instructions, Disp# 300 each, Refills: 3, Use to test blood sugarthree times daily, Note to Pharmacy: ICD-10: E11.42, Pharmacy: [facility]/pharmacy #[id number] Start Date: 12/11/21 Status: Ordered Problem List Condition Confirmation Course Effective Dates Status Health Status Informant Below knee amputation Confirmed Active Amputation of fifth toe of right foot Confirmed Active Benign hypertension with coincident congestive heart failure Confirmed Active Chronic diastolic (congestive) heart failure Confirmed Active Chronic respiratory failure with hypoxia, on home oxygen therapy Confirmed Active Nonocclusive coronary atherosclerosis of [place] coronary artery Confirmed Active Diabetic peripheral neuropathy associated with type 2 diabetes mellitus Confirmed Active S/P BKA (below knee amputation) unilateral Confirmed Active Hyperlipidemia Confirmed Active Atherosclerosis of [place] arteries of extremities with intermittent claudication, bilateral legs Confirmed Active BETTE (obstructive sleep apnea) Confirmed Active Peripheral arterial disease with history of revascularization Confirmed Active Tobacco user Confirmed Active Type 2 diabetes mellitus with diabetic peripheral angiopathy and gangrene, with long-term current use of insulin Confirmed Active Diagnosis Diagnosis Type Effective Dates Health Status Clinical Service Informant Below knee amputation Discharge Diagnosis 03/22/24 Peripheral arterial disease Discharge Diagnosis 03/22/24 Procedures Procedure Date Related Diagnosis Body Site [...] Com pleted Cardiac catheterization 10/03/17 C ompleted [address] [place] [address] Impression: 1. Cardiomegaly without radiographic evidence of congestive failure 2. Right basiar opacities are similar to previous and likely represent scarring/atelectasis. Correl[facility] clinically [facility] Imp[facility]: 1. No pulmonary emboli identified 2. Subsegmental bilateral atelectasis 3. No lymphadenopathy [facility] Impression: 1. No acute abnormality. incidental note is made of diverticulosis without diverticulitis [facility] Right [facility]th [facility] Impression: 1. No evidence of osteomyelitis or abscess [facility] Impression: 1. No focal cortical erosion/osteolysis or agressive periosteal reaction identified to suggest osteomyelitis. No fracture or bone lesion. Scattered vsha-yv-lfidkpps osteoarthritis. Plantar calcaneal spur. Achilles enthesophytes Vital Signs Most recent to oldest [Reference Range]: 1 Heart Rate 93 bpm (03/22/24 2:48 PM) Blood Pressure 126/80mmHg (03/22/24 2:48 PM) Social History Social History Type Response Tobacco Former smoker, Cigar ettes Smoking Status Former Smoker, quit > 1 yr Sex Male Sex Representation Male (finding) [facility] Outpt Note * LORENA Horan, Melissa: PERFORM Event Display: [facility] Outpt Note Authored Date: [id number] [facility] OUTPATIENT NOTE Name: LILLIAM SAEED Patient Number: [id number] : 1955 Date of Service: 03/22/2024 Chief Complaint: _Follow-up for right leg BKA HPI: _Mr. Saeed is an elderly male who presents to Dr. Greenberg's vascular surgery clinic today for follow-up visit regarding his right leg below-knee amputation site. Patient is known to have severe peripheral arterial disease. Patient is now 3-month status post right leg below-knee amputation due to an ischemic leg. He unfortunately had a few falls on his stump which have prolong his healing time. Patient states overall he is doing well. He denies any new complaints or concerns related to his below-knee amputation. He denies any complaints or concerns of his left leg. 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 Current Home Meds: (Last Updated 03/22 14:46) aspirin (aspirin 81 mg oral tablet, chewable) [...] mg oral capsule) 1 cap PO qhs syringe needles (BD needle Ultra-Fine Pen Etta [...] long-term current use of insulin Atherosclerosis of [place] arteries of extremities with intermittent claudication, bilateral legs Chronic respiratory failure with hypoxia, on home oxygen therapy Chronic diastolic (congestive) heart failure BETTE (obstructive sleep apnea) Nonocclusive coronary atherosclerosis of [place] coronary artery Hyperlipidemia Diabetic peripheral neuropathy associated with type 2 diabetes mellitus OBJECTIVE Vitals: Last Updated 03/22/24 14:48 Date Temp BP Location Pulse RR SpO2 Pain 03/22/24 126/80 93 88 02/16/24 124/78 Right Arm 88 93 02/16/24 0 Vital Signs are the last 3 [...] Exam Constitutional: In general patient is a healthy-appearing elderly male no distress. He is alert andoriented any focal deficits. His right leg BKA site is well-healed with a few large scabs over the surgical wound, these removed today without any bleeding or dehiscence of the wound. There are no open areas. There is no erythema or concerning findings. ASSESSMENT: _ PLAN: _ 1 ) _right leg below-knee amputation due to ischemic leg Patient is overall doing well since being seen here about a month ago. 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 He is ready to begin the process for his BKA prosthesis. 2 ) _peripheral arterial disease Patient did have a severe peripheral arterial disease of the right lower extremity, resulting in anischemic leg in his below-knee amputation. His left leg has not been formally evaluated in the recent history. We recommend that he return to our office in 3 months for reevaluation of his BKA site, as well as a left leg arterial ultrasound. He does not have any significant complaints related to the left leg at this time, but is not currently ambulating due to his right BKA. I have personally spent_27__ minutes performing zdkq-[id number]-[id number] and gzf-sgch-tw-face activities on this date of service.Time does not include separately reported services. Activities Include: x__ review of the medical record _x_ obtaining a history _x_ physical exam/evaluation __ review labs x__ review radiology reports _x_ counseling/educating patient/family/caregiver __ discussion/referral to other healthcare professional _x_ documenting care in the medical record __ independent interpretation of results _x_ communication of results to patient/family/caregiver _x_ coordination of care Electronic Signature on File CC: Kayla Fernando PA-C,[facility] [address] [address] Electronically Reviewed/Signed by: Melissa Horan PA-C Author Signature Dt/Tm:03/22/2024 04:54 PM [facility] [place] [address] LM Patient Care team information Care Team Personnel Name: AUDREY Enrique Terra L Position: Nurse Pract - Vascular Surg Member Role: Lifetime Relationship Address: [address] [facility] [place] [address] [place] [address] [place] Name: Prasanna Wilson Catherine Position: Pharmacist Member Role: Pharmacy - Lifetime Address: [address] [address] [place] Name: LORENA Gaston Bridget M Position: Physician Senior [employer] Developer - Vascular Surg Member Role: Lifetime Relationship Address: [address] [place] [id number] [place] Name: LORENA Horan Lynn Position: Physician Senior [employer] Developer Exempt - Vasc Surg Member Role: Lifetime Relationship Address: [address] [place] [id number] Name: LORENA Fernando, Kayla Mckay Position: Physician Asst Ext - Family Med Member Role: Primary Care Provider Address: [address] [place] [id number] Care Team Related Persons Name: KAYLA SAEED Name: LILLIAM SAEED Name: KAYLA AU
--- OUTSIDE RECORDS SUMMARY | 2024-05-11 00:16 | External Medical Summary | Continuity of Care Document ---
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 buyer(Discharge Diagnosis) - 04/29/24 Syncope(Discharge Diagnosis) - 04/30/24 Basilar artery occlusion(Discharge Diagnosis) - 04/30/24 Vertebro basilar insufficiency(Discharge Diagnosis) - 04/30/24 PAD (peripheral artery disease)(Discharge Diagnosis) - 04/29/24 HTN (hypertension)(Discharge Diagnosis) - 04/30/24 Moderate CVD (cerebrovascular disease)(Discharge Diagnosis) - 04/30/24 Amputation of lR leg; below knee(Discharge Diagnosis) - 04/30/24 Dyslipidemia(Discharge Diagnosis) - 04/30/24 COPD without exacerbation(Discharge Diagnosis) - 04/30/24 Diabetes(Discharge Diagnosis) - 04/30/24 Discharge Disposition: Home or Self Care Attending Physician: DO Ahmadi Grant W Admitting Physician: DO Ahmadi Grant W Referring Physician: DO Ricketts Austin Allergies, Adverse Reactions, Alerts Substance Criticality Severity Reaction Reaction Severity Status Jardiance dizziness, nausea Ac tive Functional Status 04/30/24 Neurological Symptoms Numbness ADLs Minimal assistance Facial Symmetry Symmetric Gait Wheelchair Level Mob ility Swallowing Difficulty None Level of Consciousness Neuro Alert Hallucinations Present None History of Fall in Last 3 Months Martínez Y es Presence of Secondary Diagnosis Martínez Ye s Use of Ambulatory Aid Martínez Crutches/can e/walker IV/Heparin Lock Fall Risk Martínez Yes Gait/Transferring Fall Risk Martínez Normal /bedrest/immobile Mental Status Fall Risk Martínez Oriented t o own ability Martínez Fall Risk Score 75 Martínez Fall Risk High risk Speech Pattern Garbled, Other: baseline - does not have teeth/dentures Medications aspirin 81 mg oral tablet, chewable Start: 06/24/20 1:08:00 PM EST, 1 tab, PO, Daily, Disp# 90 tab, Refills: 3, Pharmacy: [facility] #[id number] Start Date: 06/24/20 Status: Ordered atorvastatin 20 mg oral tablet Start: 01/30/24 7:14:00 AM EDT, 1 tab, PO, Daily, Disp# 90 tab, Refills: 3, Pharmacy: [id number] Start Date: 01/30/24 Status: Ordered BD needle Ultra-Fine Pen 29G x 0.5" Start: 11/02/22 1:45:00 PM EDT, See Instructions, Disp# 100 each, Refills: 5, Use as directed with insulin. Max ____/day. Use new pen needle with each injection., [id number] Start Date: 11/02/22 Status: Ordered BD needle Ultra-Fine Pen Etta 32G x 4mm Start: 12/11/21 9:41:00 AM EDT, See Instructions, Disp# 100 each, Refills: 3, To be used with insulininjections twice daily., Note to Pharmacy: ICD-10: E11.42, Pharmacy: [facility] #[id number] Start Date: 12/11/21 Status: Ordered cilostazol 100 mg oral tablet Start: 04/27/24 9:51:00 AM EDT, 1 tab, PO, bid, Disp# 180 tab, Refills: 0, Pharmacy: [id number] Start Date: 04/27/24 Status: Ordered clopidogrel 75 mg oral tablet Start: 03/29/24 7:19:00 AM EDT, 1 tab, PO, Daily, Disp# 90 tab, Refills: 3, Pharmacy: [id number] Start Date: 03/29/24 Status: Ordered cyclobenzaprine 5 mg oral tablet Start: 01/30/24 7:14:00 AM EDT, 1 tab, PO, tid, Disp# 30 tab, Refills: 1, PRN: as needed for spasm, Pharmacy: [id number] Start Date: 01/30/24 Status: Ordered furosemide 40 mg oral tablet Start: 04/27/24 9:51:00 AM EDT, 1 tab, PO, Daily, Disp# 90 tab, Refills: 0, IF WEIGHT INCREASES OVERNIGHT 2-3 POUNDS OR 4-5 POUNDS PER WEEK, TAKE 1 EXTRA TABLET, Pharmacy: [id number] Start Date: 04/27/24 Status: Ordered glipiZIDE 5 mg oral tablet Start: 12/26/23 7:14:00 AM EDT, 1 tab, PO, bid, Disp# 60 tab, Refills: 11, Pharmacy: [id number] Start Date: 12/26/23 Status: Ordered HumaLOG Sliding Scale Low Dose Range: SSI, injection, subQ, 04/29/24 4:30:00 PM EDT, 04/29/24 5:24:38 PM EDT, Estimated correction need for patients using total insulin daily dose between 31 and 60 units., 04/29/24 14:17:00 EDT Start Date: 04/29/24 Stop Date: 04/29/24 Status: Completed HumaLOG Sliding Scale Low Dose Range: SSI, injection, subQ, 04/30/24 7:30:00 AM EDT, 04/30/24 8:09:34 AM EDT, Estimated correction need for patients using total insulin daily dose between 31 and 60 units., 04/29/24 14:17:00 EDT Start Date: 04/30/24 Stop Date: 04/30/24 Status: Completed HumaLOG Sliding Scale Low Dose Range: SSI, injection, subQ, 04/30/24 11:30:00 AM EDT, 04/30/24 11:37:03 AM EDT, Estimated correction need for patients using total insulin daily dose between 31 and 60 units., 04/29/24 14:17:00 EDT Start Date: 04/30/24 Stop Date: 04/30/24 Status: Completed Lantus Solostar Pen 100 units/mL subcutaneous solution Start: 01/10/24 3:43:00 PM EDT, 50 unit =, subQ, Daily Start Date: 01/10/24 Status: Ordered lisinopril 30 mg oral tablet Start: 01/23/24 9:41:00 AM EDT, 1 tab, PO, Daily, Disp# 90 tab, Refills: 3, Pharmacy: [id number] Start Date: 01/23/24 Status: Ordered metFORMIN 1000 mg oral tablet Start: 01/23/24 9:41:00 AM EDT, 1 tab, PO, bid, Disp# 180 tab, Refills: 3, Pharmacy: [facility] Start Date: 01/23/24 Status: Ordered Metoprolol Succinate ER 50 mg oral tablet, extended release Start: 01/23/24 9:41:00 AM EDT, 1 tab, PO, Daily, Disp# 90 tab, Refills: 3, Pharmacy: [facility] Start Date: 01/23/24 Status: Ordered nortriptyline 25 mg oral capsule Start: 11/28/23 11:48:00 AM EDT, 1 cap, PO, qhs, Disp# 30 cap, Refills: 11, Pharmacy: [id number] Start Date: 11/28/23 Status: Ordered One Touch Delica (33G) Lancets Start: 08/07/18 9:27:22 AM EST, See Instructions, Disp# 300 unit, Refills: 3, Test blood sugar before meals and at bedtime, [id number] Start Date: 08/07/18 Status: Ordered One Touch Delica Plus (30G) Lancets Start: 12/11/21 9:41:00 AM EDT, See Instructions, Disp# 300 each, Refills: 3, Use to test blood sugarTID. Dx Code E11.42, Pharmacy: [facility]/pharmacy #[id number] Start Date: 12/11/21 Status: Ordered One Touch Verio Glucose Monitor Start: 10/05/17 11:22:00 AM EST, See Instructions, Disp# 1 each, Test blood sugar before meals and at bedtime, Pharmacy: [facility] Start Date: 10/05/17 Status: Ordered One Touch Verio Test Strips Start: 12/11/21 9:41:00 AM EDT, See Instructions, Disp# 300 each, Refills: 3, Use to test blood sugarthree times daily, Note to Pharmacy: ICD-10: E11.42, Pharmacy: [facility]/pharmacy #[id number] Start Date: 12/11/21 Status: Ordered Problem List Condition Confirmation Course Effective Dates Status Health Status Informant Below knee amputation Confirmed Active Amputation of lR leg; below knee Confirmed Active Amputation of fifth toe of right foot Confirmed Active Benign hypertension with coincident congestive heart failure Confirmed Active Chronic diastolic (congestive) heart failure Confirmed Active Chronic respiratory failure with hypoxia, on home oxygen therapy Confirmed Active COPD without exacerbation Confirmed Active Nonocclusive coronary atherosclerosis of [place] coronary artery Confirmed Active Diabetes Confirmed Active Diabetic peripheral neuropathy associated with type 2 diabetes mellitus Confirmed Active Dyslipidemia Confirmed Active S/P BKA (below knee amputation) unilateral Confirmed Active Hyperlipidemia Confirmed Active HTN (hypertension) Confirmed Active Atherosclerosis of [place] arteries of extremities with intermittent claudication, bilateral legs Confirmed Active BETTE (obstructive sleep apnea) Confirmed Active Peripheral arterial disease with history of revascularization Confirmed Active PAD (peripheral artery disease) Confirmed Active Tobacco user Confirmed Active Type 2 diabetes mellitus with diabetic peripheral angiopathy and gangrene, with long-term current use of insulin Confirmed Active 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, 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 Confirmed Active Diagnosis Diagnosis Type Effective Dates Health Status Clinical Service Informant PAD (peripheral artery disease) Discharge Diagnosis 04/29/24 Non-Specified 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, 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 Discharge Diagnosis 04/29/24 Non-Specified Dyslipidemia Discharge Diagnosis 04/30/24 Non-Specified Syncope Discharge Diagnosis 04/30/24 Non-Specified COPD without exacerbation Discharge Diagnosis 04/30/24 Non-Specified HTN (hypertension) Discharge Diagnosis 04/30/24 Non-Specified Amputation of lR leg; below knee Discharge Diagnosis 04/30/24 Non-Specified Diabetes Discharge Diagnosis 04/30/24 Non-Specified Moderate CVD (cerebrovascular disease) Discharge Diagnosis 04/30/24 Non-Specified Vertebro basilar insufficiency Discharge Diagnosis 04/30/24 Non-Specified Basilar artery occlusion Discharge Diagnosis 04/30/24 Non-Specified Procedures Procedure Date Related Diagnosis Body [...] Com pleted [facility] Impression: 1. Cardiomegaly without radiographic evidence of congestive failure 2. Right basiar opacities are similar to previous and likely represent scarring/atelectasis. Correlate clinically for evidence of a superimposed pneumonitis 4[facility] Impression: 1. No pulmonary emboli identified 2. Subsegmental bilateral atelectasis 3. No lymphadenopathy 5[facility] Impression: 1. No acute abnormality. incidental note is made of diverticulosis without diverticulitis 6[facility] Right 5th toe 7[facility] Impression: 1. No evidence of osteomyelitis or abscess 8[facility] Impression: 1. No focal cortical erosion/osteolysis or agressive periosteal reaction identified to suggest osteomyelitis. No fracture or bone lesion. Scattered [id number] osteoarthritis. Plantar calcaneal spur. Achilles enthesophytes Results Laboratory List Name Date Glucose Meter (GLUCOSE METER) 04/30/24 Glucose Meter (GLUCOSE METER) 04/30/24 Basic Metabolic Panel (BMP) 04/30/24 Complete Blood Count (CBC w Platelets) Hemoglobin A1C (Glycohemoglobin) 04/30/24 Homocysteine Level 04/30/24 Lipid Profile 04/30/24 Glucose Meter (GLUCOSE METER) 04/29/24 Urine Analysis w/ Reflexed Microscopic. 04/29/24 Complete Blood Count (CBC w Platelets) Comprehensive Metabolic Panel (CMP) 04/29 MRSA Surveillance (Nasal Swab) 04/29/24 Most recent to oldest [Reference Range]: 1 2 3 Homocysteine(p) [<15.0 umol/L] 10.0 umol/L (04/30/24 4:24 AM) eGFR CKD-EPI [>60 mL/min/1.73 m2] 63 mL/min/1.73 m2 (04/30/24 4:24 AM) 70 mL/min/1.73 m2 (04/29/24 12:24 PM) Blood Glucose [70-120 mg/dL] 207 mg/dL 1 *HI* (04/30/24 11:37 AM) 157 mg/dL 2 *HI* (04/30/24 8:09 AM) 195 mg/dL 3 *HI* (04/29/24 5:24 PM) Estimated Average Glucose 194 mg/dL (04/30/24 4:24 AM) Blood Glucose Ref Range [70 - 120 mg/dl] (04/29/24 5:09 PM) Non-HDL 57 mg/dL (04/30/24 4:24 AM) Estimated CrCl 68.43 mL/min (04/30/24 5:36 AM) 74.49 mL/min (04/29/24 2:21 PM) MPV [9.0-12.2 fL] 10.4 fL (04/30/24 4:24 AM) 10.7 fL (04/29/24 12:24 PM) RDW [11.5-14.2 %] 15.8 % *HI* (04/30/24 4:24 AM) 15.8 % *HI* (04/29/24 12:24 PM) Squamous Epithelial Cells (u) FEW (04/29/24 1:20 PM) Mucous (u) FEW (04/29/24 1:20 PM) MRSA Surveillance, on Admission [MSND] MRSA NOT detected (04/29/24 10:52 AM) Anion Gap [5-14 mmol/L] 9 mmol/L (04/30/24 4:24 AM) 11 mmol/L (04/29/24 12:24 PM) Alb [3.5-5.2 g/dL] 4.2 g/dL (04/29/24 12:24 PM) Alk Phos [40-130 unit/L] 85 unit/L 4 (04/29/24 12:24 PM) ALT [0-41 unit/L] 10 unit/L (04/29/24 12:24 PM) AST [0-40 unit/L] 8 unit/L (04/29/24 12:24 PM) Bact (u) [NONE-NONE] FEW *Abnormal* (04/29/24 1:20 PM) Bili (u) [NEG] NEGATIVE (04/29/24 1:20 PM) BUN [6-23 mg/dL] 21 mg/dL (04/30/24 4:24 AM) 24 mg/dL *HI* (04/29/24 12:24 PM) Ca [8.4-10.2 mg/dL] 9.2 mg/dL (04/30/24 4:24 AM) 9.7 mg/dL (04/29/24 12:24 PM) Chol/HDL 4 (04/30/24 4:24 AM) Chol [<200 mg/dL] 77 mg/dL (04/30/24 4:24 AM) Cl- [98-107 mmol/L] 98 mmol/L (04/30/24:24 AM) 98 mmol/L (04/29/24 12:24 PM) HCO3 [22-29 mmol/L] 30 mmol/L *HI* (04/30/24 4:24 AM) 30 mmol/L *HI* (04/29/24 12:24 PM) Cret [0.70-1.30 mg/dL] 1.23 mg/dL (04/30/24 4:24 AM) 1.13 mg/dL (04/29/24 12:24 PM) HbA1c [<5.7 %] 8.4 % 5 *HI* (04/30/24 4:24 AM) Glu [74-109 mg/dL] 159 mg/dL 6 *HI* (04/30/24 4:24 AM) 137 mg/dL 7 *HI* (04/29/24 12:24 PM) Gluc Meter [74-109 mg/dL] 207 mg/dL *HI* (04/30/24 11:35 AM) 157 mg/dL *HI* (04/30/24 8:01 AM) 178 mg/dL *HI* (04/29/24 9:19 PM) Hct [39-48 %] 41.4 % (04/30/24 4:24 AM) 38.8 % *LOW* (04/29/24 12:24 PM) HDL [>40 mg/dL] 20 mg/dL *LOW* (04/30/24 4:24 AM) Hgb [13.0-17.0 g/dL] 11.7 g/dL *LOW* (04/30/24 4:24 AM) 10.9 g/dL *LOW* (04/29/24 12:24 PM) K [3.5-5.1 mmol/L] 4.9 mmol/L (04/30/24 4:24 AM) 4.9 mmol/L (04/29/24 12:24 PM) Ketones [NEG mg/dL] NEGATIVE mg/dL (04/29/24 1:20 PM) LDL Chol, Calculated [50-130 mg/dL] 30 mg/dL *LOW* (04/30/24 4:24 AM) Leuk Est [NEG] LARGE *Abnormal* (04/29/24 1:20 PM) MCH [28-33 pg] 24.7 pg *LOW* (04/30/24 4:24 AM) 24.3 pg *LOW* (04/29/24 12:24 PM) MCHC [32-36 g/dL] 28.3 g/dL *LOW* (04/30/24:24 AM) 28.1 g/dL *LOW* (04/29/24 12:24 PM) MCV [81-96 fL] 87.5 fL (04/30/24 4:24 AM) 86.6 fL (04/29/24 12:24 PM) Na [136-145 mmol/L] 137 mmol/L (04/30/24 4:24 AM) 139 mmol/L (04/29/24 12:24 PM) Nitrite (u) [NEG] NEGATIVE (04/29/24 1:20 PM) Plts [150-350 K/uL] 255 K/uL (04/30/24 4:24 AM) 275 K/uL (04/29/24 12:24 PM) RBC [4.40-5.60 M/uL] 4.73 M/uL (04/30/24 4:24 AM) 4.48 M/uL (04/29/24 12:24 PM) T Bili [0.0-1.2 mg/dL] 0.3 mg/dL (04/29/24 12:24 PM) Prot [6.4-8.3 g/dL] 6.6 g/dL (04/29/24 12:24 PM) TG [<150 mg/dL] 136 mg/dL (04/30/24 4:24 AM) Appear (u) CLEAR (04/29/24 1:20 PM) Color (u) YELLOW (04/29/24 1:20 PM) Glu (u) [NEG mg/dL] NEGATIVE mg/dL (04/29/24 1:20 PM) Hgb (u) [NEG] SMALL *Abnormal* (04/29/24 1:20 PM) pH (u) [5.0-8.0 unit] 5.0 unit (04/29/24 1:20 PM) Prot (u) [NEG mg/dL] NEGATIVE mg/dL (04/29/24 1:20 PM) RBC (u) [0-4 /HPF] 0-4 /HPF (04/29/24 1:20 PM) Urobili [0.1-1.0 EU/dL] 0.1-1.0 EU/dL (04/29/24 1:20 PM) SG [1.005-1.030] >1.030 *HI* (04/29/24 1:20 PM) WBC (u) [0-4 /HPF] 20-29 /HPF (04/29/24 1:20 PM) WBC [4.0-10.4 K/uL] 12.62 K/uL *HI* (04/30/24 4:24 AM) 11.85 K/uL *HI* (04/29/24 12:24 PM) 1Result Comment: Performed at: [address] [place] [address] 2Result Comment: Performed at: [address] [place] [address] 3Result Comment: Performed at: [address] [place] [address] 4Result Comment: Low levels of ALKP may indicate a deficiency in zinc, magnesium, or malnutritionbutcan also be an indicator of a rare genetic disease hypophosphatasia (HPP). 5Result Comment: ADA Recommended Lamar Reference Range: Normal: <5.7% Prediabetes: 5.7-6.4% Diabetes: >6.4% Hb A1c results in patients with severe anemia or recent RBC transfusion are unreliable and do not represent the patient glycemic control. 6Result Comment: ADA recommendation for FASTING Serum/Plasma Glucose: Normal: 70-100 mg/dL Prediabetes: 100-125 mg/dL Diabetes: 126 mg/dL or higher 7Result Comment: ADA recommendation for FASTING Serum/Plasma Glucose: Normal: 70-100 mg/dL Prediabetes: 100-125 mg/dL Diabetes: 126 mg/dL or higher Radiology Reports * Exam Date Time Procedure Performing Provider Status 04/30/24 3:48 PM Echo TransTHORacic TTE Complete w/ Con John Paul Donato; Final Notes: (Echo TransTHORacic TTE Complete w/ Cont) Reason For Exam: Acute ill-defined cerebrovascular disease Echo TransTHORacic TTE Complete w/ Cont Report Signatures Finalized by Herson Alegria MD on 04/30/2024 04:09 PM [place] Act 112: No-No further action needed Summary 1. Normal left ventricular size and systolic function. 2. Estimated ejection fraction 55-60%. 3. No regional wall motion abnormalities. 4. Moderate left ventricular hypertrophy. 5. Right ventricular dilation with reduced systolic function. 6. Mildly dilated aortic root. 7. Sclerotic trileaflet aortic valve without significant stenosis or regurgitation. 8. Moderately elevated pulmonary artery pressures. 9. Compared to 03/19/20 study, RV function is reduced on today's examination. PA pressure is elevated on today's examination. Patient Info Name: LILLIAM SAEED Age: 69 years : 1955 Gender: Male Ht: 173 cm Wt: 110 kg BSA: 2.35 m2 HR: 106 bpm BP: 139 / 92 mmHg Heart Rhythm: Sinus Tachycardia Technical Quality: Poor Exam Date: 04/30/2024 2:43 PM Exam Location: [place] [address] Patient Status: Inpatient Staff Ordering Physician: Louis Hoyt Housing Quality Standard Inspector: ALICIA Smalls Attending Physician: Rob Ahmadi Study Info CPT J3490 - 55510 - Indications I679 - Cerebrovascular disease, unspecified Procedure(s) * A complete two-dimensional, color flow and Doppler transthoracic echocardiogram was performed. * Failed 2D images were enhanced with Definity per lab protocol. * Housing Quality Standard Inspector, ALICIA Smalls, provided education about ultrasound enhancing agent to the patient. Exam Type: Cardiac Basic Left Ventricle Normal left ventricular size and systolic function. Estimated ejection fraction 55-60%. No regional wall motion abnormalities. Moderate left ventricular hypertrophy. Right Ventricle Right ventricular dilation with reduced systolic function. Left Atrium Normal left atrial size. Right Atrium Right atrial dilation. Aortic Valve Sclerotic trileaflet aortic valve without significant stenosis or regurgitation. Pulmonic Valve Unremarkable pulmonic valve. Mitral Valve Unremarkable mitral valve. Tricuspid Valve Mild tricuspid regurgitation. Moderately elevated pulmonary artery pressures. Pericardium/Pleural No significant pericardial effusion. Inferior Vena Cava Dilated IVC with reduced (less than 50%) collapse. Aorta Mildly dilated aortic root. Left Ventricular Outflow Tract Name Value Normal LVOT Doppler LVOT Peak Velocity 1.14 m/s LVOT Peak Gradient 5 mmHg LVOT Mean Gradient 2 mmHg LVOT VTI 15.83 cm LVOT VTI/AV VTI Ratio 0.99 Pulmonic Valve Name Value Normal RVOT Doppler RVOT Peak Velocity 0.61 m/s RVOT Peak Gradient 1 mmHg RVOT Mean Gradient 1 mmHg PV Doppler PV Peak Gradient 3 mmHg PV Mean Gradient 2 mmHg Mitral Valve Name Value Normal MV Doppler MV PHT 40 ms MV Diastolic Function MV E Peak Velocity 0.58 m/s <=0.50 MV A Peak Velocity 0.80 m/s MV E/A 0.73 <=0.80 MV Decel Time 138 ms MV Annular TDI MV Septal s' Velocity 10.51 cm/s MV Septal e' Velocity 7.82 cm/s >=7.00 MV E/e' (Septal) 7.4 <=8.0 MV Lateral s' Velocity 14.79 cm/s MV Lateral e' Velocity 12.10 cm/s >=10.00 MV E/e' (Lateral) 4.81 <=8.00 MV e' Average 9.96 MV E/e' (Average) 6.12 <=14.00 Tricuspid Valve Name Value Normal TV Regurgitation Doppler TR Peak Velocity 3.51 m/s <=2.80 TR Peak Gradient 38 mmHg Estimated PAP/RSVP RA Pressure 15 mmHg <=5 PA Systolic Pressure 64 mmHg <40 PVR (Wood Units) 364.85 dsc-5 TV Diastolic Function TV E Peak Velocity 0.57 m/s TV A Peak Velocity 0.40 m/s TV E/A 1.44 0.80-2.00 TV Decel Time 137 ms >=120 TV Annular TDI TV Lateral Mervat s' Velocity 12.5 cm/s 9.5-18.7 TV Lateral Mervat e' Velocity 18.6 cm/s <7.8 TV E/e' 3.08 2.00-6.00 Aorta Name Value Normal Ascending Aorta Sinus of Valsalva Diameter 4.3 cm 3.1-3.7 Sinus of Valsalva Index 1.83 cm/m2 1.50-1.90 Venous Name Value Normal IVC/SVC IVC Diameter (Insp 2D) 1.5 cm IVC Diameter (Exp 2D) 2.7 cm <=2.1 IVC Diameter Percent Change (2D) 44 % >=50 Aortic Valve Name Value Normal AV Doppler AV Peak Velocity 1.26 m/s <2.00 AV Peak Gradient 6 mmHg AV Mean Gradient 4 mmHg <20 AV VTI 15.97 cm AV V1/V2 Ratio 0.90 AV Accel Time 50 ms Ventricles Name Value Normal LV Dimensions 2D/MM IVS Diastolic Thickness (2D) 1.4 cm 0.6-1.0 LVID Diastole (2D) 4.8 cm 3.6-5.6 LVIW Diastolic Thickness (2D) 1.5 cm 0.6-1.0 LVID Systole (2D) 3.6 cm 2.5-4.0 LV Mass (2D Cubed) 294.19 g 88.00-224.00 LV Mass Index (2D Cubed) 0.01 g/cm2 0.00-0.01 Relative Wall Thickness (2D) 0.64 LV Fractional Shortening/Ejection Fraction 2D/MM LV Fractional Shortening (2D) 26 % 25-43 RV Dimensions 2D/MM RV Basal Diastolic Dimension 6.2 cm 2.5-4.1 TAPSE 2.1 cm >=1.7 Atria Name Value Normal LA Dimensions LA Area (4C) 17.2 cm2 LA Length (4C) 4.5 cm LA Area (2C) 10.9 cm2 LA Length (2C) 3.2 cm LA Volume (4C A-L) 55.93 ml LA Volume (2C A-L) 31.23 ml LA Volume (BP A-L) 49 ml 18-58 LA Volume Index (BP A-L) 21.01 ml/m2 <=34.00 RA Dimensions RA Area (4C) 25.6 cm2 <=18.0 Final Signed by:MD Alegria Eric Signed (Electronic Signature):04/30/2024 2:43 p * Exam Date Time Procedure Performing Provider Status 04/30/24 3:09 AM MRI Brain w/o Cristina Tolentino; Final Notes: (MRI Brain w/o Contrast) Reason For Exam: Acute ill-defined cerebrovascular disease MRI Brain w/o Contrast EXAMINATION: MRI Brain w/o Contrast CLINICAL HISTORY: Require Nurse Accompany Acute ill-defined cerebrovascular disease COMPARISON: Outside CT angiography dated 04/28/2024. TECHNIQUE: Multiplanar, multisequence MRI for the following studies with and/or without the use of contrast as indicated: MRI Brain w/o Contrast FINDINGS: BRAIN: Cerebral parenchyma: Normal pratt-white differentiation. No restricted diffusion to indicate acute territorial infarct. No significant abnormality on susceptibility weighted imaging. Scattered T2/FLAIR hyperintensities of the periventricular and subcortical white matter, corresponding to focal areasof hypodensity in the same regions on prior CT. Extra-axial spaces: No extra-axial collection. Ventricles: No hydrocephalus. Mass effect: No mass effect. Basal cisterns: Preserved. Posterior fossa: No tonsillar herniation. Chronic left cerebellar hemisphere infarct. Vascular system: Normal vascular flow voids. Calvarium: Unremarkable for technique. Sella: Unremarkable. Visualized paranasal sinuses/mastoid: Left maxillary sinus mucus retention cyst. Visualized orbits: Unremarkable. IMPRESSION: 1. No acute intracranial abnormality. 2. Chronic microangiopathic change. Dr. Manuel Carter is the dictating resident. Finalized reports status indicates that the attending has reviewed the images and report, and agrees with the interpretation. Preliminary report status should be regarded as NOT interpreted by the attending radiologist. [place] Act 112: This study does not meet the requirements of [place] Act 112. Workstation ID: [id number] Final Dictated by:MD Carter Lawrence V Dictated DT/TM:04/30/2024 4:13 Resident:MD Carter Lawrence V Signed by:MD Qiu Jonathon K Signed (Electronic Signature):04/30/2024 4:12 p Vital Signs Most recent to oldest [Reference Range]: 1 2 3 Height 172.72 cm (04/29/24 10:54 AM) Patient Weight 110.5 kg (04/30/24 6:50 AM) 110.8 kg (04/29/24 10:54 AM) Body Mass Index 37.04 kg/m2 (04/30/24 6:50 AM) 37.14 kg/m2 (04/29/24 10:54 AM) Temperature [36.5-37.9 DegC] 36.7 DegC (04/30/24 4:00 PM) 36.4 DegC *LOW* (04/30/24 12:00 PM) 36.2 DegC *LOW* (04/30/24 8:00 AM) Heart Rate 109 bpm (04/30/24 4:00 PM) 101 bpm (04/30/24 12:00 PM) 101 bpm (04/30/24 10:00 AM) Respiratory Rate 14 br/min (04/30/24 4:00 PM) 13 br/min (04/30/24 12:00 PM) 12 br/min (04/30/24 10:00 AM) Blood Pressure 153/93mmHg (04/30/24 4:00 PM) 139/92mmHg (04/30/24 12:00 PM) 136/85mmHg (04/30/24 10:00 AM) Mean Blood Pressure 108 mmHg (04/30/24 4:00 PM) 105 mmHg (04/30/24 12:00 PM) 98 mmHg (04/30/24 10:00 AM) Cuff Pulse Pressure 60 mmHg (04/30/24 4:00 PM) 47 mmHg (04/30/24 12:00 PM) 51 mmHg (04/30/24 10:00 AM) BP Location # 1 Right Arm, Non-invasive (04/30/24 4:00 PM) Right Arm, Non-invasive (04/30/24 12:00 PM) Right Arm, Non-invasive (04/30/24 10:00 AM) Social History Social History Type Response Tobacco Former smoker, Cigar ettes Smoking Status Former Smoker, quit > 1 yr Sex Male Sex Representation Male (finding) History and physical note * MD Evelina, Louis: PERFORM, MODIFY, MODIFY MD Hoyt Papul: MODIFY MD Chris, Eliz: MODIFY MD Elena, Derek: MODIFY Event Display: H&P Authored Date: [id number] Name:LILLIAM SAEED Patient Number:[id number] :1955 Date of Service:04/29/2024 Chief Complaint Syncopal event and headache History of Present Illness Patient is a right-handed 69-year-old male with a history of right leg below- knee amputation, severe peripheral arterial disease, hyperlipidemia, diabetes, mood disorder who presented to [facility] ED with a chief complaint of headache and syncope. LKW around 2054, symptoms started around 2100 as per patient. As per the patient he had a syncopal event followed by chest pain, shortness of breath and nausea. He was given 4 mg of Zofran at the outside hospital. Patient uses 2 L of oxygen at baseline for COPD. As per chart review, patient's son reported that the patient had a fall today when he tripped on the dog and fell onto the dog. He denied having any injury from this fall and did not land onthe floor. The patient that was sitting in the wheelchair this evening where his eyes rolled backand he started to shake and became unresponsive. The son lowered down him to the floor and put a pillow behind his head and the patient continued to shake for 2 to 3 minutes. Patient does not have any history of seizures. Patient underwent a CT thorax for chest pain which did not show any evidence of pulmonary embolism. Chronic left upper lobe bronchus intraluminal calcification with partial postobstructive atelectasis. Partially imaged wall thickening suggested in the visualized portion of the gallbladder. 7 mm fissural nodule in the right minor fissure. Chest x-ray was also performed which showed a pulmonary opacity in the left mid lung field, this could represent atelectasis or infiltrate. CTA head and neck was obtained. Impression: Occlusion of the proximal basilar artery with reconstituted flow more cranially via persistent origin of bilateral posterior cerebral arteries. 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 Occluded left vertebral artery with some reconstituted flow noted more cranially. 75% stenosis of the cervical segment of the left internal carotid artery and 60% stenosis of the proximal cervical segment of the right internal carotid artery. CT head without contrast did not show any evidence of hemorrhage, focal edema or mass effect. Review of Systems A complete ROS was performed and is negative except mentioned above. Physical Exam Vitals & Measurements T:36.4C HR:88(Monitored) RR:15 BP:97/63 SpO2:95% Oxygen Flow:4(L/Min) Oxygen Therapy:Nasal cannula HT:172.72cm WT:110.800kg(Dosing) WT:110.8kg BMI:37.14 BMI:37.14 kg/m2 General:NAD, sitting comfortably Mental Status:awake, alert, and oriented; history consistent and coherent; adequate fund of knowledge, memory, and attention; follows commands and answers questions appropriately; speech spontaneous and fluent; pleasant, calm, and cooperative CN:PERRL, funduscopic examshows normal appearing optic discs,EOMI, unable to fully cross leftgaze, facial sensation to light touch intact and symmetric in V1 through V3, no facial droop or asymmetric movements, hearing grossly intact, palate elevates midline, no dysarthria, tongue protrudes midline, shoulder shrug symmetric Motor:normal bulk and tone, no tremor or abnormal movements, strength 5/5 throughout, has a rightBKA with 5/5 strength on right hip flexion. Reflexes:left toedowngoing Sensory:intact tolight touchin the upper and lower extremities bilaterally Coordination:iouqpk-rf-xgcsbcsjji, izjn-ee-qdegrwbolt; finger taps normal, foot taps normal Diagnostic Results CTA head and neck was obtained. Impression: Occlusion of the proximal basilar artery with reconstituted flow more cranially via persistent origin of bilateral posterior cerebral arteries. 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 Occluded left vertebral artery with some reconstituted flow noted more cranially. 75% stenosis of the cervical segment of the left internal carotid artery and 60% stenosis of the proximal cervical segment of the right internal carotid artery. CT head without contrast did not show any evidence of hemorrhage, focal edema or mass effect. Assessment/Plan Patient is a right-handed 69-year-old male with a history of right leg below- knee amputation, severe peripheral arterial disease, hyperlipidemia, diabetes, mood disorder who presented to [facility] ED with a chief complaint of headache and syncope and found to have bilateral vertebral arteryocclusion and proximal basilar artery occlusion. # Concern for Basilar artery territory Acute ischemic stroke,etiologylarge vessel atherosclerotic disease (Occlusion ofproximal basilar artery, rightV4 segment andleft vertebral artery) Initial Deficits: syncope, dizziness Current: Resolved Initial NIH stroke scale: 1 (for partial horizontal gaze difficulty to the left), premorbid mRs: 4 Diagnostics: -CT: no intracranialhemorrhage -Vessel imaging: Occlusion ofproximal basilar artery, rightV4 segment andleft vertebral artery -MRI: Pending -Echo: Pending -Lipids: Pending -A1c: Pending -Holter: Pending -Homocysteine level: Pending Management: -Etiology: Large vessel disease -Antithrombotics:Continue home aspirin 81 mg andPlavix 75 mg daily -Blood pressure: Systolic < 200 -Lipid management: Rosuvastatin 20 Mg, further changes pendinglipid profile -Glucose management: low sliding scale insulin -VTE Prophylaxis: Enoxaparin FEN: -Cardiac prudent dietpending speech eval/bedsidedysphagia screen -IV fluids with normal saline Prophylaxis: -Lovenox 40mg q24 hours -SCDs ordered bilaterally Disposition: -IMC -Plan for discharge toinpatient rehab facilityin next few dayspendingcompletion of work up Code Status: -Full Code Body Mass Index (BMI):obesity: BMI >30 - complicates all aspects of care, follow-up in clinic Cerebrovascular None General Neurology None Cardiac None Functional None Renal None Chronic Kidney DiseaseStage II Electrolytes: None Case discussed with Dr. Perez, who is in agreement with the above unless stated otherwise. Derek Parker MD Neurology, PGY-2 TT Text Disclaimer: This documentation was prepared utilizing speech recognition software. Grammatical errors, random word insertions, pronoun errors such as substituting "she" instead of "he," and incomplete sentences are occasional consequences of the system due to software limitations, ambient noise,and hardware issues. Attempts are made to catch and to correct these errors during the documentation process however this is not always possible. If you have any questions or concerns please do not hesitate to contact me through CrossTxChart. Attestation Vascular Neurology Attending Attestation Silas aguayo evaluated the patientLILLIAM SAEED on04/29/2024with the residenton rounds.I discussed this patient with the resident and agree with the findings and plan as documented in the resident's note. Patient reported that he had acute onset of vertigoand then he passed out. CT at the outside hospital showed occlusion of theproximal basilar arteryand also bilateral vertebral arteries.[facility]. Patient was back to his baseline. His CTA changes are likely chronic.Patient was also hypotensive when he went to the outside hospital. He may likely have hadvertebrobasilar insufficiencywith either TIA or small stroke. MRI of the brain pending. Continue Aspirin, Plavix and cilostazol. Eliz Perez MD, MS [employer] Intercept Controller Supervisor of Neurology [facility] Problem List/Past Medical History Ongoing Amputation of fifth toe of right foot Atherosclerosis of [place] arteries of extremities with intermittent claudication, bilateral legs Below knee amputation Benign hypertension with coincident congestive heart failure Chronic diastolic (congestive) heart failure Chronic respiratory failure with hypoxia, on home oxygen therapy Diabetic peripheral neuropathy associated with type 2 diabetes mellitus Hyperlipidemia Nonocclusive coronary atherosclerosis of [place] coronary artery BETTE (obstructive sleep apnea) Peripheral arterial disease with history of revascularization S/P BKA (below knee amputation) unilateral Tobacco user Type 2 diabetes mellitus with diabetic peripheral angiopathy and gangrene, with long-term current use of insulin Resolved Aching headache Acute epidemic vertigo Procedure/Surgical History BKA - Below knee amputation| Service Date: 4RLE Angiogram, attempted thrombectomy| Service Date: 12/09/2023Insertion of popliteal artery stent| Service Date: 4CT of abdomen and pelvis| Service Date: 01/12/2023T angiography of chest with contrast| Service Date: 01/12hest x-ray| Service Date: 01/12/2023mputation of toe and metatarsal| Service Date: 12/06/2022MRI of right foot| Service Date: 11/23/2022X-ray of right foot| Service Date: 11/05/2022ardiac catheterization| Service Date: 10/03/2017 Medications Inpatient mupirocin topical(mupirocin 2% nasal ointment), 1 appl, each nostril, bid Home aspirin(aspirin 81 mg oral tablet, chewable), 81 mg= 1 tab, PO, Daily, 3 refills atorvastatin(atorvastatin 20 mg oral tablet), 20 mg= 1 tab, PO, Daily, 3 refills cilostazol(cilostazol 100 mg oral tablet), 1 tab, PO, bid clopidogrel(clopidogrel 75 mg oral tablet), 1 tab, PO, Daily cyclobenzaprine(cyclobenzaprine 5 mg oral tablet), 5 mg= 1 tab, PO, tid, PRN, 1 refills diabetes supplies(One Touch Delica Plus (30G) Lancets), See Instructions, 3 refills diabetes supplies(One Touch Verio Test Strips), See Instructions, 3 refills diabetic supplies(One Touch Delica (33G) Lancets), See Instructions, 3 refills diabetic supplies(One Touch Verio Glucose Monitor), See Instructions furosemide(furosemide 40 mg oral tablet), 1 tab, PO, Daily glipiZIDE(glipiZIDE 5 mg oral tablet), 1 tab, PO, bid insulin glargine(Lantus Solostar Pen 100 units/mL subcutaneous solution), 50 unit, subQ, Daily lisinopril(lisinopril 30 mg oral tablet), 1 tab, PO, Daily metFORMIN(metFORMIN 1000 mg oral tablet), 1 tab, PO, bid metoprolol(Metoprolol Succinate ER 50 mg oral tablet, extended release), 1 tab, PO, Daily nitroglycerin(nitroglycerin 0.4 mg sublingual tablet), 0.4 mg= 1 tab, SL, q5min, PRN, 3 refills nortriptyline(nortriptyline 25 mg oral capsule), 1 cap, PO, qhs rosuvastatin(rosuvastatin 10 mg oral tablet), 1 tab, PO, Daily syringe needles(BD needle Ultra-Fine Pen Etta 32G x 4mm), See Instructions, 3 refills syringe needles(BD needle Ultra-Fine Pen 29G x 0.5"), See Instructions, 5 refills Allergies Jardiancedizziness, nausea Social History Smoking Status Former Smoker, quit > 1 yr Alcohol Use:Current Type:Beer Frequency:1-2 times per month 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 Hypertension: Mother. Leukemia: Father. Stroke: Mother. Type II diabetes mellitus: Father. Health Status Family Member(s) Lab Results Current Lab Result as of 04/29/2024 14:18:28 Latest Sodium Result: no results found Latest Potassium RESULT: 4.3 mmol/L on 11/10/2023 12:49:31 Latest Chloride Result: no results found Latest HCO3 Result: no results found Latest CO2 Result: no results found Latest BUN Result: no results found Latest Creatinine Result: no results found Latest Glucose Result: no results found Latest Calcium Result: no results found Latest Magnesium Result: no results found Latest Phosphorus Result: no results found Latest Glucose Meter Result: no results found Latest Albumin Result: no results found Electronic Signature on File Electronically Reviewed/Signed by: Louis Hoyt MD Author Signature Dt/Tm:04/29/2024 03:57 PM Resident Department of Neurology Electronically Reviewed/Signed by: MD Bear Solisigner Signature Dt/Tm: 04/29/2024 02:22 PM Resident Department of Neurology Electronically Reviewed/Signed by: Dany Walkerigner Signature Dt/Tm: 04/30/2024 03:29 PM Department of Neurology PC .D/C Summary * DO Ahmadi Grant W: GEOVANNA Parker MD, Derek: PERFORM Event Display: .D/C Summary Authored Date: [id number] [facility] For medical concerns, call: . Address: [address] [place] [address] PER PAREKR [id number] (MOBILE) :1955 . 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 No acute intracranial abnormality. 2. Chronic microangiopathic change. [1] (04/30/2024 15:48 EDT Echo TransTHORacic TTE Complete w/ Cont) Summary 1. Normal left ventricular size and systolic function. 2. Estimated ejection fraction 55-60%. 3. No regional wall motion abnormalities. 4. Moderate left ventricular hypertrophy. 5. Right ventricular dilation with reduced systolic function. 6. Mildly dilated aortic root. 7. Sclerotic trileaflet aortic valve without significant stenosis or regurgitation. 8. Moderately elevated pulmonary artery pressures. 9. Compared to 03/19/20 study, RV function is reduced on today's examination. PA pressure is elevated on today's examination. [2] Brief History of Present Illness: 69-year-old male with past medical history of PADs/prightleg BKA, HLD, DM type II,and diabetic peripheral neuropathythat [facility].Patient was hypotensive when he got [facility].CTA showedevidence ofbilateral vertebral artery and basilar artery occlusion. Patient was transferred to [facility] to concernof his stroke.As per patient,he has chronic history ofdizziness uponpostural changes. Hospital Course: Lilliam Coulter admitted to [facility] under the care of neurology with the history as detailed above. Frequent neuro-checks and vital signs were performed. Hydration was provided with IV fluids. Basic laboratory studies were unremarkable. A lipid panel revealed the following: Chol: 77, LDL: 30, HDL: 20, T. Hemoglobin A1C was found to be 8.4%and homocysteine was 10. The results of theCT/CTA, MRI, and echocardiogram can be found elsewhere in this report. The pertinent findings revealed: CTA showedOcclusion ofproximal basilar artery, rightV4 segment andleft vertebral artery. MRI wasnegative for acute infarcts, findingssuggestive of chronic microangiopathic change, ECHO showed EF of 55-60%, right ventricular dilation, sclerotic aortic valve.The etiology of the symptoms was felt to be related to Syncope. Home Aspirin and Plavix was continued,atorvastatin 20 mg was continuedfor secondary stroke prevention. Blood pressure goals are systolic blood pressure < 160 and diastolic blood pressure < 90. We recommended the patient a outpatient Holter,to complete syncope work-up. PT were asked to see the patient and they recommended outpatient PT. OT evaluated thepatienta month ago when he was discharged with home health. He was discharged in stable medical/neurological condition. Optimal future stroke prevention and risk factor modification was addressed/discussed. He and his family received a stroke information packet near hospital discharge.Patient will follow up in neurology stroke clinic and was also enc ouraged to follow-up with PCP for ongoing management of chronic medical conditions. Exam on Discharge: Vitals & Measurements: T:36.7C TMIN:36.2C TMAX:36.7C HR:109(Monitored) RR:14 BP:153/93 SpO2:97% Oxygen Flow:4(L/Min) Oxygen Therapy:Nasal cannula WT:110.5kg BMI:37.04 kg/m2 General:NAD, sitting comfortably Mental Status:awake, alert, and oriented; history consistent and coherent; adequate fund of knowledge, memory, and attention; follows commands and answers questions appropriately; speech spontaneous and fluent; pleasant, calm, and cooperative CN:PERRL, funduscopic examshows normal appearing optic discs,EOMI, unable to fully cross leftgaze, facial sensation to light touch intact and symmetric in V1 through V3, no facial droop or asymmetric movements, hearing grossly intact, palate elevates midline, no dysarthria, tongue protrudes midline, shoulder shrug symmetric Motor:normal bulk and tone, no tremor or abnormal movements, strength 5/5 throughout, has a rightBKA with 5/5 strength on right hip flexion. Reflexes:left toedowngoing Sensory:intact tolight touchin the upper and lower extremities bilaterally Coordination:huxjuk-[id number]-zdcthfbxzr, wizn-or-sapwxeyeto; finger taps normal, foot taps normal Discharge Medications: 1.Diabetes supplies (One Touch Verio Glucose Monitor) See Instructions . Test blood sugar before meals and at bedtime. 2.Diabetes supplies (One Touch Delica (33G) Lancets) See Instructions . Test blood sugar before meals and at bedtime. 3.Aspirin (aspirin 81 mg oral tablet, chewable) 81 mg (1 tab) by mouth once daily. 4.Diabetes supplies (One Touch Delica Plus (30G) Lancets) See Instructions . Use to test blood sugar TID. Dx Code E11.42. 5.Syringe needles (BD needle Ultra-Fine Pen Etta 32G x 4mm) See Instructions . To be used withinsulin injections twice daily.. 6.Diabetes supplies (One Touch Verio Test Strips) See Instructions . Use to test blood sugar three times daily. 7.Syringe needles (BD needle Ultra-Fine Pen 29G x 0.5") See Instructions . Use as directed with insulin. Max ____/day.Use new pen needle with each injection.. For: Diabetic peripheral neuropathy associated with type 2 diabetes mellitus. 8.Nortriptyline (nortriptyline 25 mg oral capsule) 1 cap by mouth at bedtime. 9.GlipiZIDE (glipiZIDE 5 mg oral tablet) 1 tab by mouth 2 times daily. 10.Insulin glargine (Lantus Solostar Pen 100 units/mL subcutaneous solution) 50 unit subcutaneouslyonce daily. 11.MetFORMIN (metFORMIN 1000 mg oral tablet) 1 tab by mouth 2 times daily. 12.Lisinopril (lisinopril 30 mg oral tablet) 1 tab by mouth once daily. 13.Metoprolol (Metoprolol Succinate ER 50 mg oral tablet, extended release) 1 tab by mouth once daily. 14.Cyclobenzaprine (cyclobenzaprine 5 mg oral tablet) 5 mg (1 tab) by mouth 3 times daily, as needed for spasm. 15.Atorvastatin (atorvastatin 20 mg oral tablet) 20 mg (1 tab) by mouth once daily. 16.Clopidogrel (clopidogrel 75 mg oral tablet) 1 tab by mouth once daily. 17.Cilostazol (cilostazol 100 mg oral tablet) 1 tab by mouth 2 times daily. 18.Furosemide (furosemide 40 mg oral tablet) 1 tab by mouth once daily. IF WEIGHT INCREASES OVERNIGHT 2-3 POUNDS OR 4-5 POUNDS PER WEEK, TAKE 1 EXTRA TABLET. Allergies and Sensitivities: Jardiancedizziness, nausea Tests Pending: None Follow-Up Tests and Studies After Discharge: None Scheduled Appointments: Date/Time:Provider/Resource: May 08:30 PER Buckner Jessica A Location/Instructions:[facility] [address], [address], [address], [place] [address] . Please arrive 15 min earlier than your appointment time for Check In Process. Date/Time:Provider/Resource: Jun 02:00 [facility] Location/Instructions:1. No Smoking, No Caffeine 1 hour prior to exam.2. You will be requiredto lie flat on a stretcher for this exam. Date/Time:Provider/Resource: Jun 02:45 MD Montes Eugene J Location/Instructions:[facility] [address], [address], [address], [place] [address] . Please arrive 15 min earlier than your appointment time for Check In Process. Other Appointments: Follow Up withLORENA Fernando, Kayla Mckay [facility] Discharge Services: No Post-Acute Placement(s) Listed No Post-Acute Service(s) Listed Care Instructions: 1.Follow-up with your Primary Care Physician in 1-2 weeks following discharge. 2. You will be contacted with these appointments if they are not already on your paperwork. 3.Lifestyle changes such as quitting tobacco, limiting alcohol intake, eating a diet low in salt and saturated fat and routinely doing 30 minutes of exercise daily can help to improve your healthwithout the addition of prescription medications. prescribe you new medications 4. Wedid notprescribe you new medications.However, we did change some ofyour prior medication dosages. If you have any questions regarding your medications, please contact us at [phone]. Hold Medications: - Hold Nitroglycerin as needed - Hold Lisinopril. Discuss with your PCP when to restart medication Discontinue Medications: - Rosuvastatin 10 mg daily 5.You should work with your primary care provider to modify your current risk factors which include: Medical Risk Factors Lifestyle Risk Factors X High Blood Pressure _ Tobacco Use X High Cholesterol _ Excessive Alcohol Use X Diabetes _ Illicit/Illegal Drug Use _ Atrial Fibrillation _ Being Overweight _ Obstructive Sleep Apnea _ Other: _ X Carotid Artery Disease X Heart Disease _ Other: _ 6. Please check your blood pressure daily. If BP above 160 consistently, reach out to your PCP, Canconsider restarting your Lisinopril for BP management. 7. We provided you with a script for outpatient physical therapy. . Advance Directive:Living will Attending Attestation I have personally interviewed this patient. I have reviewed this patient's HPI, PMH, PSH, medications, allergies, and history. I have personally examined this patient on the day of discharge and confirmed the findings as detailed above. I have reviewed all relevant laboratory and imaging data. Etiology for patient's presenting syncope is undetermined, with highest suspicion for hypotension which appropriately responded to IVF boluses at OSH. Patient was initially transferred due to concernfor vertebrobasilar insufficiency with bilateral vertebral artery occlusions and basilar artery sten osis/occlusion; however on further review, it appears that patient has a variant anatomy with bilateral origin departmental buyer, with the anterior circulation supplying much of the posterior circulation. As such, and as patient has had episodes of syncope in the past, and given that MRI Brain was negative for acute ischemic stroke, it was felt that this variant anatomy did not contribute to patient's overall presentation. Given his presenting hypotension, we held his Lisinopril and Nitroglycerin at discharge, with instructions provided on how/when to restart Lisinopril. We also continued/did not change patient's home antiplatelet regimen of ASA + Plavix + Cilostazol; this was confirmed with patient's prescribing provider that he is to be on all 3 of these medications, given his severe PAD. PT/OT evaluated patient and recommended outpatient services, for which patient was provided with a prescription at discharge. As part of his syncope workup, TTE was obtained which showed normal ejection fr action with no significant valvular abnormalities. An outpatient Holter monitor was requested as well. We modified the patient's stroke risk factors as appropriate. Optimal stroke prevention was addressed and discussed. The patient was counseled on the signs and symptoms of stroke (BE FAST) and instructed to dial 9-1-1 in the event of any such event. The patient will follow-up with our stroke clinic for a one- time follow-up appointment as scheduled. I personally spent45 minutes involved in discharge planning today. Rob Ahmadi DO Electronic Signature on File Electronically Reviewed/Signed by: Derek Parker MD Author Signature Dt/Tm:04/30/2024 04:49 PM Resident Department of Neurology Electronically Reviewed/Signed by: Rob Ahmadi DO Cosigner Signature Dt/Tm: 04/30/2024 11:04 PM Department of Neurology LN Discharge instructions * MD Elena, eDrek: PERFORM, MODIFY Event Display: Patient Discharge Instructions Authored Date: [id number] LILLIAM SAEED :1955 Visit Date:04/29/2024 Patient Discharge Instructions [facility] For medical concerns, call: . Date of Admission:04/29/2024 Date of Discharge:04/30/2024 Physician:DO Ahmadi Grant W Service:Neurology Discharge Disposition:Home . 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 My [employer] [employer] is a free service that provides you instant, secure access to your medical information anytime, anywhere. Sign in or set up your account today at [email or web address] Thank you for allowing us to assist you with your healthcare needs. If you need additional community resources, PER 211 can help at https://www.pa211.org. 211 can assist you in connecting with social programs based on your unique needs and locations. 211 is an anonymous search that can help you locate resources for: Food, Housing, Transportation, Goods, Education and Healthcare. Medications What How Much When Why Instructions Next Dose Unchanged aspirin (aspirin 81 mg oral tablet, chewable) 1 tab(s) by mouth Once daily Unchanged atorvastatin (atorvastatin 20 mg oral tablet) 1 tab(s) by mouth Once daily Unchanged cilostazol (cilostazol 100 mg oral tablet) 1 tab(s) by mouth 2 times daily Unchanged clopidogrel (clopidogrel 75 mg oral tablet) 1 tab(s) by mouth Once daily Unchanged cyclobenzaprine (cyclobenzaprine 5 mg oral tablet) 1 tab(s) by mouth 3 times daily as needed for as needed for spasm Unchanged diabetes supplies (One Touch Delica Plus (30G) Lancets) See instructions Use to test blood sugar TID. Dx Code E11.42 Unchanged diabetes supplies (One Touch Verio Test Strips) See instructions Use to test blood sugar three times daily Unchanged diabetic supplies (One Touch Delica (33G) Lancets) See instructions Test blood sugar before meals and at bedtime Unchanged diabetic supplies (One Touch Verio Glucose Monitor) See instructions Test blood sugar before meals and at bedtime HOLD furosemide (furosemide 40 mg oral tablet) 1 tab(s) by mouth Once daily IF WEIGHT INCREASES OVERNIGHT 2-3 POUNDS OR 4-5 POUNDS PER WEEK, TAKE 1 EXTRA TABLET Unchanged glipiZIDE (glipiZIDE 5 mg oral tablet) 1 tab(s) by mouth 2 times daily Unchanged insulin glargine (Lantus Solostar Pen 100 units/ mL subcutaneous solution) 50 unit(s) subcutaneously Once daily HOLD lisinopril (lisinopril 30 mg oral tablet) 1 tab(s) by mouth Once daily Unchanged metFORMIN (metFORMIN 1000 mg oral tablet) 1 tab(s) by mouth 2 times daily Unchanged metoprolol (Metoprolol Succinate ER 50 mg oral tablet, extended release) 1 tab(s) by mouth Once daily Unchanged nortriptyline (nortriptyline 25 mg oral capsule) 1 cap by mouth At bedtime Unchanged syringe needles (BD needle Ultra-Fine Pen 29G x 0.5") See instructions Diabetic peripheral neuropathy associated with type 2 diabetes mellitus Use as directed with insulin. Max ____/ day. Use new pen needle with each injection. Unchanged syringe needles (BD needle Ultra-Fine Pen Etta 32G x 4mm) See instructions To be used with insulin injections twice daily. What How Much When Comments Stop Taking nitroglycerin (nitroglycerin 0.4 mg sublingual tablet) 1 tab(s) sublingually Every 5 minutes as needed for Chest Pain Duration: 3 Doses Stop Taking rosuvastatin (rosuvastatin 10 mg oral tablet) 1 tab(s) by mouth Once daily Allergies Jardiancedizziness, nausea What to do next Instructions From Your Doctor 1.Follow-up with your Primary Care Physician in 1-2 weeks following discharge. 2. You will be contacted with these appointments if they are not already on your paperwork. 3.Lifestyle changes such as quitting tobacco, limiting alcohol intake, eating a diet low in salt and saturated fat and routinely doing 30 minutes of exercise daily can help to improve your healthwithout the addition of prescription medications. prescribe you new medications 4. Wedid notprescribe you new medications.However, we did change some ofyour prior medication dosages. If you have any questions regarding your medications, please contact us at [phone]. Hold Medications: - Hold Nitroglycerin as needed - Hold Lisinopril. Discuss with your PCP when to restart medication Discontinue Medications: - Rosuvastatin 10 mg daily 5.You should work with your primary care provider to modify your current risk factors which include: Medical Risk Factors Lifestyle Risk Factors X High Blood Pressure _ Tobacco Use X High Cholesterol _ Excessive Alcohol Use X Diabetes _ Illicit/Illegal Drug Use _ Atrial Fibrillation _ Being Overweight _ Obstructive Sleep Apnea _ Other: _ X Carotid Artery Disease X Heart Disease _ Other: _ 6. Please check your blood pressure daily. If BP above 160 consistently, reach out to your PCP, Canconsider restarting your Lisinopril for BP management. 7. We provided you with a script for outpatient physical therapy. If you notice the following symptoms For emergencies dial 911, for non-emergent concerns contact our clinic at [phone] and follow the prompts to direct your call to the appropriate staff. Call your doctor if: any activity causes shortness of breath or chest pain you develop a fever greater than 101 F nausea, vomiting or abdominal pain bleeding or bruising twitching or seizure activity or if you have any other concerns Call 911 immediately if experiencing any of the warning signs and symptoms of stroke: Sudden numbness or weakness of the face, arm or leg, especially on one side of the body Sudden confusion, trouble speaking or understanding Sudden trouble seeing in one or both eyes Sudden trouble walking, loss of balance or coordination Sudden severe headache with no known cause B.E.F.A.S.T. Balance: is there trouble with walking or coordination Eyes: is there double vision or visual loss Face: Smile, do both sides of face move equally Arm: Raise arms, do both arms move equally Speech: Is speech slurred or inappropriate Time: Time is critical, call 911 immediately Contact the [facility] Careline at . If unable to contact your physician and you feel it is an emergency, go to the nearest Emergency Room or call 911 Diet Instructions We recommend a well-balanced, heart healthy diet with moderate restriction of salt and saturated fat.The Mediterranean Diet is the diet recommended by the [place] Heart Association/[place] StrokeAssociation because it has been shown to reduce overall risk of stroke and heart disease.This diet focuses on increased intake of vegetables, fruits, healthy fats (i.e., olive oil, avocado), nuts, & fish as the primary source of protein as well as lean white meats. Level 7 (regular textures)Level 0 (thin liquids) Medication whole with liquids Oral Care 3-4x daily Remain upright 20-30 minutes after PO intake Activity Instructions Follow the activities recommended by your physical, occupational and/or speech therapist. Graduallyincrease your activity with a goal of 30 minutes most days of the week. Please do not drive or operate heavy machinery until you are seen by your primary care physician oruntil you are given clearance to do so by your Neurologist. Follow-Up Appointments Scheduled Follow-Up Appointments Date/Time:Provider/Resource: May 08:30 amPER Fernando Jessica A Location/Instructions:[facility] [address], [address], [address], [place] [address] . Please arrive 15 min earlier than your appointment time for Check In Process. Date/Time:[facility]: [facility]/Instructions:1. No Smoking, No Caffeine 1 hour prior to exam.2. You will be requiredto lie flat on a stretcher for this exam. Date/Time:Provider/Resource: Jun 02:45 MD Montes Eugene J Location/Instructions:[facility] [address], [facility] [address], [address], [place] [address] . Please arrive 15 min earlier than your appointment time for Check In Process. You Need to Schedule the Following Appointments Follow Up LORENA Cronin, Kayla Mckay [facility] Tests Pending None Procedures Performed (04/30/2024 03:09 EDT MRI Brain w/o Contrast) IMPRESSION: 1. No acute intracranial abnormality. 2. Chronic microangiopathic change. [1] (04/30/2024 15:48 EDT Echo TransTHORacic TTE Complete w/ Cont) Summary 1. Normal left ventricular size and systolic function. 2. Estimated ejection fraction 55-60%. 3. No regional wall motion abnormalities. 4. Moderate left ventricular hypertrophy. 5. Right ventricular dilation with reduced systolic function. 6. Mildly dilated aortic root. 7. Sclerotic trileaflet aortic valve without significant stenosis or regurgitation. 8. Moderately elevated pulmonary artery pressures. 9. Compared to 03/19/20 study, RV function is reduced on today's examination. PA pressure is elevated on today's examination. [2] Special Instructions Common Emergency Awareness Tips Call 911 immediately if: experiencing any of the warning signs and symptoms of stroke: Ricardo.George. F.A.S.T. Balance: is there trouble with walking or coordination Eyes: is there double vision or visual loss Face: Smile, do both sides of face move equally Arm: Raise arms, do both arms move equally Speech: Is speech slurred or inappropriate Time: Time is critical, call 911 immediately Heart Attack Signs Chest discomfort: Most heart attacks involve discomfort in the center of the chest and lasts more than a few minutes, or goes away and comes back. It can feel like uncomfortable pressure, squeezing, fullness or pain. Discomfort in upper body: Symptoms can include pain or discomfort in one or both arms, back, neck, jaw or stomach. Shortness of breath: With or without discomfort. Other signs: Breaking out in a cold sweat, nausea, or lightheaded. Remember, MINUTES DO MATTER. If you experience any of these heart attack warning signs, call to get immediate medical attention! Education Materials Peripheral Vascular Disease Peripheral vascular disease (PVD) is a disease of the blood vessels that carry blood from the heartto the rest of the body. PVD is also called peripheral artery disease (PAD) or poor circulation. PVD affects most of the body. But it affects the legs and feet the most. PVD can lead to acute limb ischemia. This happens when there is a sudden stop of blood flow to an arm or leg. This is a medical emergency. What are the causes? The most common cause of PVD is a buildup of a fatty substance (plaque) inside your arteries. This decreases blood flow. Plaque can break off and block blood in a smaller artery. This can lead to acute limb ischemia. Other common causes of PVD include: Blood clots inside the blood vessels. Injuries to blood vessels. Irritation and swelling of blood vessels. Sudden tightening of the blood vessel (spasms). What increases the risk? A family history of PVD. Medical conditions, including: High cholesterol. Diabetes. High blood pressure. Heart disease. Past problems with blood clots. Past injury, such as garcia or a broken bone. Other conditions, such as: Buerger's disease. This is caused by swollen or irritated blood vessels in your hands and feet. Arthritis. defects that affect the arteries in your legs. Kidney disease. Using tobacco or nicotine products. Not getting enough exercise. Being very overweight (obese). Being 50 years old or older. What are the signs or symptoms? Cramps in your butt, legs, and feet. Pain and weakness in your legs when you are active that goes away when you rest. Leg pain when at rest. Leg numbness, tingling, or weakness. Coldness in a leg or foot, especially when compared with the other leg or foot. Skin or hair changes. These can include: Hair loss. Shiny skin. Pale or bluish skin. Thick toenails. Being unable to get or keep an erection. Tiredness (fatigue). Weak pulse or no pulse in the feet. Wounds and sores on the toes, feet, or legs. These take longer to heal. How is this treated? Underlying causes are treated first. Other conditions, like diabetes, high cholesterol, and blood pressure, are also treated. Treatment may include: Lifestyle changes, such as: Quitting smoking. Getting regular exercise. Having a diet low in fat and cholesterol. Not drinking alcohol. Taking medicines, such as: Blood thinners. Medicines to improve blood flow. Medicines to improve your blood cholesterol. Procedures to: Open the arteries and restore blood flow. Insert a small mesh tube (stent) to keep a blocked vessel open. Create a new path for blood to flow to the body (peripheral bypass). Remove tissue from a wound. Remove an affected leg or arm. Follow these instructions at home: Medicines Take bvcv-nzc-wwshous and prescription medicines only as told by your doctor. If you are taking blood thinners: Talk with your doctor before you take any medicines that have aspirin, or NSAIDs, such as ibuprofen. Take medicines exactly as told. Take them at the same time each day. Avoid doing things that could hurt or bruise you. Take action to prevent falls. Wear an alert bracelet or carry a card that shows you are taking blood thinners. Lifestyle Get regular exercise. Ask your doctor about how to stay active. Talk with your doctor about keeping a healthy weight. If needed, ask about losing weight. Eat a diet that is low in fat and cholesterol. If you need help, talk with your doctor. Do not drink alcohol. Do not smoke or use any products that contain nicotine or tobacco. If you need help quitting, ask your doctor. General instructions Take good care of your feet. To do this: Wear shoes that fit well and feel good. Check your feet often for any cuts or sores. Get a flu shot (influenza vaccine) each year. Keep all follow-up visits. Where to find more information Society for Vascular Surgery: vascular.org [place] Heart Association: heart.org National Heart, Lung, and Blood [place]: nhlbi.nih.gov Contact a doctor if: You have cramps in your legs when you walk. You have leg pain when you rest. Your leg or foot feels cold. Your skin changes. You cannot get or keep an erection. You have cuts or sores on your legs or feet that do not heal. Get help right away if: You have sudden changes in the color and feeling of your arms or legs, such as: Your arm or leg turns cold, numb, and blue. Your arm or leg becomes red, warm, swollen, painful, or numb. You have any signs of a stroke. "BE FAST" is an easy way to remember the main warning signs: B - Balance. Dizziness, sudden trouble walking, or loss of balance. E - Eyes. Trouble seeing or a change in how you see. F - Face. Sudden weakness or loss of feeling of the face. The face or eyelid may droop on one side. A - Arms. Weakness or loss of feeling in an arm. This happens all of a sudden and most often on oneside of the body. S - Speech. Sudden trouble speaking, slurred speech, or trouble understanding what people say. T - Time. Time to call emergency services. Write down what time symptoms started. You have other signs of a stroke, such as: A sudden, very bad headache with no known cause. Feeling like you may vomit (nausea). Vomiting. A seizure. You have chest pain or trouble breathing. These symptoms may be an emergency. Get help right away. Call your local emergency services (911 inthe [place] Do not wait to see if the symptoms will go away. Do not drive yourself to the hospital. Summary Peripheral vascular disease (PVD) is a disease of the blood vessels. PVD affects the legs and feet the most. Symptoms may include leg pain or leg numbness, tingling, and weakness. Treatment may include lifestyle changes, medicines, and procedures. This information is not intended to replace advice given to you by your health care provider. Make sure you discuss any questions you have with your health care provider. Document Revised: 01/26/2021 Document Reviewed: 01/26/2021 Between [employer] Patient Education 2022 [employer] Near-Syncope Near-syncope is when you suddenly feel like you might pass out or faint. This may also be called presyncope. During an episode of near-syncope, you may: Feel dizzy, weak, or light-headed. It may feel like the room is spinning. Feel like you may vomit (nauseous). See spots or see all white or all black. Have cold, clammy skin. Feel warm and sweaty. Hear ringing in your ears. This condition is caused by a sudden decrease in blood flow to the brain. This can result from manycauses, but most of those causes are not dangerous. However, near-syncope may be a sign of a serious medical problem, so it is important to seek medical care. Follow these instructions at home: Medicines Take whjv-uyz-pjduwtu and prescription medicines only as told by your doctor. If you are taking blood pressure or heart medicine, get up slowly and spend many minutes getting ready to sit and then stand. This can help with dizziness. Lifestyle Do not drive, use machinery, or play sports until your doctor says it is okay. Do not drink alcohol. Do not smoke or use any products that contain nicotine or tobacco. If you need help quitting, ask your doctor. Avoid hot tubs and saunas. General instructions Be aware of any changes in your symptoms. Talk with your doctor about your symptoms. You may need to have testing to help find the cause. If you start to feel like you might pass out, sit or lie down right away. If sitting, lower your head down between your legs. If lying down, raise (elevate) your feet above the level of your heart. Breathe deeply and steadily. Wait until all of the symptoms are gone. Have someone stay with you until you feel better. Drink enough fluid to keep your pee (urine) pale yellow. Avoid standing for a long time. If you must stand for a long time, do movements such as: Moving your legs. Crossing your legs. Flexing and stretching your leg muscles. Squatting. Keep all follow-up visits. Contact a doctor if: You continue to have episodes of near fainting. Get help right away if: You pass out or faint. You have any of these symptoms: Fast or uneven heartbeats (palpitations). Pain in your chest, belly, or back. Shortness of breath. You have a seizure. You have a very bad headache. You are confused. You have trouble seeing. You are very weak. You have trouble walking. You are bleeding from your mouth or butt. You have black or tarry poop (stool). These symptoms may be an emergency. Get help right away. Call your local emergency services (911 [facility] [place] Do not wait to see if the symptoms will go away. Do not drive yourself to the hospital. Summary Near-syncope is when you suddenly feel like you might pass out or faint. This condition is caused by a sudden decrease in blood flow to the brain. Near-syncope may be a sign of a serious medical problem, so it is important to seek medical care. If you start to feel like you might pass out, sit or lie down right away. If sitting, lower your head down between your legs. If lying down, raise (elevate) your feet above the level of your heart. Talk with your doctor about your symptoms. You may need to have testing to help find the cause. This information is not intended to replace advice given to you by your health care provider. Make sure you discuss any questions you have with your health care provider. Document Revised: 12/03/2021 Document Reviewed: 12/03/2021 Between Digital Patient Education 2022 Between [employer] Syncope, Adult Syncope is when you pass out or faint for a short time. It is caused by a sudden decrease in blood flow to the brain. This can happen for many reasons. It can sometimes happen when seeing blood, getting a shot (injection), or having pain or strong emotions. Most causes of fainting are not dangerous, but in some cases it can be a sign of a serious medical problem. If you faint, get help right away. Call your local emergency services (911 in the [place] Follow these instructions at home: Watch for any changes in your symptoms. Take these actions to stay safe and help with your symptoms: Knowing when you may be about to faint Signs that you may be about to faint include: Feeling dizzy or light-headed. It may feel like the room is spinning. Feeling weak. Feeling like you may vomit (nauseous). Seeing spots or seeing all white or all black. Having cold, clammy skin. Feeling warm and sweaty. Hearing ringing in the ears. If you start to feel like you might faint, sit or lie down right away. If sitting, lower your head down between your legs. If lying down, raise (elevate) your feet above the level of your heart. Breathe deeply and steadily. Wait until all of the symptoms are gone. Have someone stay with you until you feel better. Medicines Take qztb-nku-brofaeb and prescription medicines only as told by your doctor. If you are taking blood pressure or heart medicine, sit up and stand up slowly. Spend a few minutesgetting ready to sit and then stand. This can help you feel less dizzy. Lifestyle Do not drive, use machinery, or play sports until your doctor says it is okay. Do not drink alcohol. Do not smoke or use any products that contain nicotine or tobacco. If you need help quitting, ask your doctor. Avoid hot tubs and saunas. General instructions Talk with your doctor about your symptoms. You may need to have testing to help find the cause. Drink enough fluid to keep your pee (urine) pale yellow. Avoid standing for a long time. If you must stand for a long time, do movements such as: Moving your legs. Crossing your legs. Flexing and stretching your leg muscles. Squatting. Keep all follow-up visits. Contact a doctor if: You have episodes of near fainting. Get help right away if: You pass out or faint. You hit your head or are injured after fainting. You have any of these symptoms: Fast or uneven heartbeats (palpitations). Pain in your chest, belly, or back. Shortness of breath. You have jerky movements that you cannot control (seizure). You have a very bad headache. You are confused. You have problems with how you see (vision). You are very weak. You have trouble walking. You are bleeding from your mouth or your butt (rectum). You have black or tarry poop (stool). These symptoms may be an emergency. Get help right away. Call your local emergency services (911 inthe [place] Do not wait to see if the symptoms will go away. Do not drive yourself to the hospital. Summary Syncope is when you pass out or faint for a short time. It is caused by a sudden decrease in blood flow to the brain. Signs that you may be about to faint include feeling dizzy or light-headed, feeling like you may vomit, seeing all white or all black, or having cold, clammy skin. If you start to feel like you might faint, sit or lie down right away. Lower your head if sitting, or raise (elevate) your feet if lying down. Breathe deeply and steadily. Wait until all of the symptoms are gone. This information is not intended to replace advice given to you by your health care provider. Make sure you discuss any questions you have with your health care provider. Document Revised: 12/03/2021 Document Reviewed: 12/03/2021 Between Digital Patient Education 2022 [employer] [1]MRI Brain w/o Contrast; MD Uyen, Krystian K 04/30/2024 03:09 EDT [2]Echo TransTHORacic TTE Complete w/ Cont; MD Raji, Herson 04/30/2024 15:48 EDT Patient Care team information Care Team Personnel Name: AUDREY Enrique Terra L Position: Nurse Pract - Vascular Surg Member Role: Lifetime Relationship Address: [address] [facility] [address] [place] [address] [place] Name: Prasanna Wilson Catherine Position: Pharmacist Member Role: Pharmacy - Lifetime Address: [facility] [address] [place] [address] [place] Name: LORENA Gaston Bridget M Position: Physician Grand Scribe - Vascular Surg Member Role: Lifetime Relationship Address: [address] [facility] [address] [place] [address] [place] Name: LORENA Horan Lynn Position: Physician Grand Scribe Exempt - Vasc Surg Member Role: Lifetime Relationship Address: [address] [place] [address] [place] Name: Prasanna Denny Paula Position: Pharmacist Member Role: Pharmacy - Lifetime Address: [address] [address] [place] Name: LORENA Fernando Jessica A Position: Physician Asst Exmpt - Family Med Member Role: Primary Care Provider Address: [address] [place] [address] Care Team Related Persons Name: KAYLA SAEED Name: LILLIAM SAEED Name: KAYLA AU
--- OUTSIDE RECORDS SUMMARY | 2024-05-11 00:16 | External Medical Summary ---
Author Name Unknown Address Unknown Organization K1F:LABORATORY [facility] - [address] [place] [address] Laboratory Report Ordering Provider Test Date Status TOMÁS YOUNGER 04/28/2024 22:23:56 Final Observation Date Value Abnormality Reference (Units ) Status Troponin T 04/28/2024 22:23:56 50 Above high normal < =22 (ng/L) Final Performing Location LABORATORY [facility] - [address] [place] [address]
--- OUTSIDE RECORDS SUMMARY | 2024-05-11 00:16 | External Medical Summary ---
Author Name Unknown Address Unknown Organization K1F:LABORATORY [facility] - [address] [place] [address] Laboratory Report Ordering Provider Test Date Status TOMÁS YOUNGER 04/28/2024 21:27:45 Final Observation Date Value Abnormality Reference (Units ) Status Body temperature 04/28/2024 21:27:45 37.0 (C) Final pH of Venous blood 04/28/2024 21:27:45 7.306 Below low normal 7.320-7.430 (units) Final Carbon dioxide [Partial pressure] in Venous blood 04/28/2024 21:27:45 65.7 Above high normal 40.0-60.0 (mmHg) Final Oxygen [Partial pressure] in Venous blood 04/28/2024 21:27:45 44.6 25.0-50.0 (mmHg) Final Base excess, Capillary 04/28/2024 21:27:45 4.4 Above high normal -2.0-2.0 (mmol/L) Final Hemoglobin [Mass/volume] in Blood by Oximetry 04/28/2024 21:27:45 11.3 Below low normal 14.0-16.8 (g/dL) Final Oxyhemoglobin, Venous (FO2HB) 04/28/2024 21:27:45 68.6 40.0-85.0 (% total Hgb) Final Carboxyhemoglobin 04/28/2024 21:27:45 1.3 <=1.5 (% total Hgb) Final Smokers: 0-9.0 % Methemoglobin 04/28/2024 21:27:45 0.5 <= 1.5 (% total Hgb) Final Deoxyhemoglobin/Hemoglo bin.total in Venous blood 04/28/2024 21:27:45 29.6 (% total Hgb) Final Oxygen content in Venous blood 04/28/2024 21:27:45 10.9 7.0-18.0 (%vol) Final Bicarbonate, Venous, POC (i-STAT) 04/28/2024 21:27:45 31.8 Above high normal 23.0-31.0 (mmol/L) Final Performing Location LABORATORY [facility] - [address] [place] [address]
--- OUTSIDE RECORDS SUMMARY | 2024-05-11 00:16 | External Medical Summary | Continuity of Care Document ---
Author Name Unknown Organization [address] Address [address] [place] [id number] Care Team Providers Care Folder Machine Name Role Phone Kayla Fernando Primary Care Physician [phone] [facility]counter [facility] [id number] Date(s): 01/10/24 - 01/10/[address], [address] [place] [address] [phone] Encounter Diagnosis Below knee amputation(Discharge Diagnosis) - 01/10/24 Discharge Disposition: Home or Self Care Attending Physician: MD Yari, Shahab Falcon Referring Physician: AUDREY Walter Thad J Allergies, Adverse Reactions, Alerts Substance Criticality Severity Reaction Reaction Severity Status Jardiance dizziness, nausea Ac tive Medications aspirin 81 mg oral tablet, chewable Start: 06/24/20 1:08:00 PM EST, 1 tab, PO, Daily, Disp# 90 tab, Refills: 3, Pharmacy: [facility]/pharmacy #[id number] Start Date: 06/24/20 Status: Ordered atorvastatin 20 mg oral tablet Start: 01/10/24 3:33:00 PM EDT, 1 tab, PO, Daily Start Date: 01/10/24 Status: Ordered BD needle Ultra-Fine Pen 29G x 0.5" Start: 11/02/22 1:45:00 PM EDT, See Instructions, Disp# 100 each, Refills: 5, Use as directed with insulin. Max ____/day. Use new pen needle with each injection., Pharmacy: [facility]/pharmacy #[id number] Start Date: 11/02/22 Status: Ordered BD needle Ultra-Fine Pen Etta 32G x 4mm Start: 12/11/21 9:41:00 AM EDT, See Instructions, Disp# 100 each, Refills: 3, To be used with insulininjections twice daily., Note to Pharmacy: ICD-10: E11.42, Pharmacy: [facility]/pharmacy #[id number] Start Date: 12/11/21 Status: Ordered clopidogrel 75 mg oral tablet Start: 04/08/23 1:05:00 PM EDT, 1 tab, PO, Daily, Disp# 90 tab, Refills: 3, Pharmacy: [facility]7 Start Date: 04/08/23 Status: Ordered cyclobenzaprine 5 mg oral tablet Start: 01/10/24 3:33:00 PM EDT, 1 tab, PO, tid, PRN: as needed for spasm Start Date: 01/10/24 Status: Ordered furosemide 40 mg oral tablet Start: 05/09/23 9:59:00 AM EDT, 1 tab, PO, Daily, Disp# 90 tab, Refills: 3, IF WEIGHT INCREASES OVERNIGHT 2-3 POUNDS OR 4-5 POUNDS PER WEEK, TAKE 1 EXTRA TABLET, Pharmacy: [place] [id number] Start Date: 05/09/23 Status: Ordered glipiZIDE 5 mg oral tablet Start: 12/26/23 7:14:00 AM EDT, 1 tab, PO, bid, Disp# 60 tab, Refills: 11, Pharmacy: [facility] Start Date: 12/26/23 Status: Ordered Lantus Solostar Pen 100 units/mL subcutaneous solution Start: 01/10/24 3:43:00 PM EDT, 50 unit =, subQ, Daily Start Date: 01/10/24 Status: Ordered lisinopril 30 mg oral tablet Start: 08/02/23 8:56:00 PM EST, 1 tab, PO, Daily, Disp# 90 tab, Refills: 1, Pharmacy: [facility] 160 Start Date: 08/02/23 Status: Ordered Metoprolol Succinate ER 50 mg oral tablet, extended release Start: 08/02/23 8:56:00 PM EST, 1 tab, PO, Daily, Disp# 90 tab, Refills: 1, Pharmacy: [facility] 160 Start Date: 08/02/23 Status: Ordered nitroglycerin 0.4 mg sublingual tablet Start: 06/24/20 1:08:00 PM EST, 1 tab, SL, q5min, Disp# 25 tab, Refills: 3, PRN: Chest Pain, Pharmacy: [facility]/pharmacy #[id number] Start Date: 06/24/20 Status: Ordered nortriptyline 25 mg oral capsule Start: 11/28/23 11:48:00 AM EDT, 1 cap, PO, qhs, Disp# 30 cap, Refills: 11, Pharmacy: [id number] Start Date: 11/28/23 Status: Ordered One Touch Delica (33G) Lancets Start: 08/07/18 9:27:22 AM EST, See Instructions, Disp# 300 unit, Refills: 3, Test blood sugar before meals and at bedtime, Pharmacy: [facility]/pharmacy #[id number] Start Date: 08/07/18 Status: Ordered One Touch Delica Plus (30G) Lancets Start: 12/11/21 9:41:00 AM EDT, See Instructions, Disp# 300 each, Refills: 3, Use to test blood sugarTID. Dx Code E11.42, Pharmacy: [facility]/pharmacy #[id number] Start Date: 12/11/21 Status: Ordered One Touch Verio Glucose Monitor Start: 10/05/17 11:22:00 AM EST, See Instructions, Disp# 1 each, Test blood sugar before meals and at bedtime, Pharmacy: [facility] Start Date: 10/05/17 Status: Ordered One Touch Verio Test Strips Start: 12/11/21 9:41:00 AM EDT, See Instructions, Disp# 300 each, Refills: 3, Use to test blood sugarthree times daily, Note to Pharmacy: ICD-10: E11.42, Pharmacy: [facility]/pharmacy #[id number] Start Date: 12/11/21 Status: [...] therapy Confirmed Active 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 Confirmed Active Diabetic peripheral neuropathy associated with type 2 diabetes mellitus Confirmed Active Hyperlipidemia Confirmed Active Atherosclerosis of navajo arteries of extremities with intermittent claudication, bilateral legs Confirmed Active BETTE (obstructive sleep apnea) Confirmed Active Peripheral arterial disease with history of revascularization Confirmed Active Tobacco user Confirmed Active Type 2 diabetes mellitus with diabetic peripheral angiopathy and gangrene, with long-term current use of insulin Confirmed Active Diagnosis Diagnosis Type Effective Dates Health Status Clinical Service Informant Below knee amputation Discharge Diagnosis 01/10/24 Procedures Procedure Date Related Diagnosis Body Site [...] Com pleted Cardiac catheterization 10/03/[address] [place] [address] [facility]: 1. Cardiomegaly without radiographic evidence of congestive failure 2. Right basiar opacities are similar to previous and likely represent scarring/atelectasis. Correlate clinically for evidence of a superimposed pneumonitis [facility] Impression: 1. No pulmonary emboli identified 2. Subsegmental bilateral atelectasis 3. [facility]aden[facility]: 1. No acute abnormality. incidental note is made of diverticulosis without diverticulitis [facility] Right [facility]th toe [facility] Impression: 1. No evidence of osteomyelitis or abscess [facility] Impression: 1. No focal cortical erosion/osteolysis or agressive periosteal reaction identified to suggest osteomyelitis. No fracture or bone lesion. Scattered gnri-wo-ixmelpnt osteoarthritis. Plantar calcaneal spur. Achilles enthesophytes Social History Social History Type Response Tobacco Former smoker, Cigar ettes Smoking Status Current every day he ed smoker Sex Male Patient Care team information Care Team Personnel Name: AUDREY Enrique Terra L Position: Nurse Pract - Vascular Surg Member Role: Lifetime Relationship Address: Address: [address] [facility] [place] [address] [place] [address] [place] Name: Prasanna Wilson Catherine Position: Pharmacist Member Role: Pharmacy - Lifetime Address: Address: [facility] [address] [place] [address] [place] Name: LORENA Gaston Bridget M Position: Physician Cheese Pancake Roller - Vascular Surg Member Role: Lifetime Relationship Address: Address: [address] [place] [address] [address] [place] [address] Name: LORENA Horan Lynn Position: Physician Cheese Pancake Roller Exempt - Vasc Surg Member Role: Lifetime Relationship Address: Address: [address] [place] [address] [place] Name: LORENA Fernando Jessica A Position: Physician Asst Exmpt - Family Med Member Role: Primary Care Provider Address: Address: [address] [place] [address] Care Team Related Persons Name: KAYLA SAEED Address: home [address] [place] [address] Name: LILLIAM SAEED Address: [address] [facility] [id number] Name: KAYLA AU Address: home [address] [place] [id number]
--- OUTSIDE RECORDS SUMMARY | 2024-05-11 00:16 | External Medical Summary | Continuity of Care Document ---
Author Name Unknown Organization [facility] Address [address] [place], [place] [id number] Care Team Providers Care Keysmith Name Role Phone Kayla Fernando Primary Care Physician [phone] [id number]s): 02/16/24 - 02/16/24 [facility] [address], [address] [place] [address] [phone] Encounter Diagnosis Below knee amputation(Discharge Diagnosis) - 02/16/24 Discharge Disposition: Home or Self Care Attending Physician: LORENA Horan Lynn Referring Physician: AUDREY Walter Thad J Allergies, Adverse Reactions, Alerts Substance Criticality Severity Reaction Reaction Severity Status Jardiance dizziness, nausea Ac tive Assessment and Plan Extracted from: Title:Clinical Document Author:LORENA Horan Lynn Date:02/16/24 [facility]VI OUTPATIENT NOTE Name: LILLIAM SAEED Patient Number: [id number] : 1955 Date of Service: 02/16/2024 Chief Complaint: _Follow-up for right leg BKA HPI: _Mr. Saeed is an elderly male who presents to Dr. Greenberg vascular surgery clinic today for a follow-up visit regarding his right leg below-knee amputation site. As you may remember, patient underwent a right leg below-knee amputation due to severe ischemia in December 2023. Postoperatively he unfortunately had at least 2 falls onto the stump. He had superficial wound dehiscence after the falls. He has been slowly healing up since that time. Patient denies any new complaints or concerns, states that it is healing generally well with no drainage, odor, redness, or significant pain. He does have a small area on his tibial tuberosity which became blistered and sore after wearing the John wrap in the extreme heat and humidity. He has stopped wearing the John wrap for a couple days. He does not yet have a stump gyroscope technician. Current Home Meds: (Last Updated 02/15 13:11) aspirin (aspirin 81 mg oral tablet, chewable) [...] long-term current use of insulin Atherosclerosis of [place] arteries of extremities with intermittent claudication, bilateral legs Chronic respiratory failure with hypoxia, on home oxygen therapy Chronic diastolic (congestive) heart failure BETTE (obstructive sleep apnea) Nonocclusive coronary atherosclerosis of [place] coronary artery Hyperlipidemia Diabetic peripheral neuropathy associated with type 2 diabetes mellitus OBJECTIVE Vitals: Last Updated 02/16/24 13:15 Date Temp BP Location Pulse RR SpO2 Pain 02/16/24 124/78 Right Arm 88 93 02/16/24 0 02/02/24 138/72 Right Arm 95 93 Vital Signs are the last 3 documented. [...] Constitutional: In general patient is a healthy-appearing well-nourished well-developed elderly male no distress. Is alert and oriented with any focal deficits. He is in a wheelchair. His right leg below-knee amputation site has some scabbed areas, most of which was able to be removed easily today as it was loosened. There was minimal to no bleeding. The remainder of the scabs will loosen over time. Otherwise the wound appears to be healing well. He does have a small extremely superficial area over his tibial tuberosity which is consistent with an abrasion ASSESSMENT: _ PLAN: _ 1 ) _status post right leg BKA Patient is generally doing well now about 2 months status post right below-knee amputation. His surgical incision appears to be healing generally well. He does have a small superficial abrasion type area over his tibial tuberosity which the patient and his family feel is likely due to wearing the John wrap in the extreme heat and humidity over the past 2 weeks. There is no erythema to indicate infection. We did recommend that he not wear the John wrap until this area is healed. In the meantime, we will write a prescription for a below-knee amputation stump gyroscope technician in order to prepare him for a prosthetic in the future. Patient and his family are advised to call any questions or concerns. Otherwise we will see him back in 4 more weeks for reevaluation of his surgical site. They are agreeable to this plan. Thank you for letting us participate in the care of this patient. Medications aspirin 81 mg oral tablet, chewable Start: 06/24/20 1:08:00 PM EST, 1 tab, PO, Daily, Disp# 90 tab, Refills: 3, Pharmacy: [facility]/pharmacy #[id number] Start Date: 06/24/20 Status: Ordered atorvastatin 20 mg oral tablet Start: 01/30/24 7:14:00 AM EDT, 1 tab, PO, Daily, Disp# 90 tab, Refills: 3, Pharmacy: [facility] Start Date: 01/30/24 Status: Ordered BD needle Ultra-Fine Pen 29G x 0.5" Start: 11/02/22 1:45:00 PM EDT, See Instructions, Disp# 100 each, Refills: 5, Use as directed with insulin. Max ____/day. Use new pen needle with each injection., Pharmacy: [facility]/pharmacy #[id number] Start Date: 11/02/22 Status: Ordered BD needle Ultra-Fine Pen Etta 32G x 4mm Start: 12/11/21 9:41:00 AM EDT, See Instructions, Disp# 100 each, Refills: 3, To be used with insulininjections twice daily., Note to Pharmacy: ICD-10: E11.42, Pharmacy: [facility]/pharmacy #[id number] Start Date: 12/11/21 Status: Ordered clopidogrel 75 mg oral tablet Start: 04/08/23 1:05:00 PM EDT, 1 tab, PO, Daily, Disp# 90 tab, Refills: 3, Pharmacy: [facility]7 Start Date: 04/08/23 Status: Ordered cyclobenzaprine 5 mg oral tablet Start: 01/30/24 7:14:00 AM EDT, 1 tab, PO, tid, Disp# 30 tab, Refills: 1, PRN: as needed for spasm, Pharmacy: [facility] 1607 Start Date: 01/30/24 Status: Ordered furosemide 40 mg oral tablet Start: 05/09/23 9:59:00 AM EDT, 1 tab, PO, Daily, Disp# 90 tab, Refills: 3, IF WEIGHT INCREASES OVERNIGHT 2-3 POUNDS OR 4-5 POUNDS PER WEEK, TAKE 1 EXTRA TABLET, Pharmacy: [facility] 1607 Start Date: 05/09/23 Status: Ordered glipiZIDE 5 mg oral tablet Start: 12/26/23 7:14:00 AM EDT, 1 tab, PO, bid, Disp# 60 tab, Refills: 11, Pharmacy: [facility] 1607 Start Date: 12/26/23 Status: Ordered Lantus Solostar Pen 100 units/mL subcutaneous solution Start: 01/10/24 3:43:00 PM EDT, 50 unit =, subQ, Daily Start Date: 01/10/24 Status: Ordered lisinopril 30 mg oral tablet Start: 01/23/24 9:41:00 AM EDT, 1 tab, PO, Daily, Disp# 90 tab, Refills: 3, Pharmacy: [facility] 1607 Start Date: 01/23/24 Status: Ordered metFORMIN 1000 mg oral tablet Start: 01/23/24 9:41:00 AM EDT, 1 tab, PO, bid, Disp# 180 tab, Refills: 3, Pharmacy: [facility] 1607 Start Date: 01/23/24 Status: Ordered Metoprolol Succinate ER 50 mg oral tablet, extended release Start: 01/23/24 9:41:00 AM EDT, 1 tab, PO, Daily, Disp# 90 tab, Refills: 3, Pharmacy: [facility] 1607 Start Date: 01/23/24 Status: Ordered nitroglycerin 0.4 mg sublingual tablet Start: 06/24/20 1:08:00 PM EST, 1 tab, SL, q5min, Disp# 25 tab, Refills: 3, PRN: Chest Pain, Pharmacy: [facility]/pharmacy #[id number] Start Date: 06/24/20 Status: Ordered nortriptyline 25 mg oral capsule Start: 11/28/23 11:48:00 AM EDT, 1 cap, PO, qhs, Disp# 30 cap, Refills: 11, Pharmacy: [facility]7 Start Date: 11/28/23 Status: Ordered One Touch Delica (33G) Lancets Start: 08/07/18 9:27:22 AM EST, See Instructions, Disp# 300 unit, Refills: 3, Test blood sugar before meals and at bedtime, [id number] Start Date: 08/07/18 Status: Ordered One Touch Delica Plus (30G) Lancets Start: 12/11/21 9:41:00 AM EDT, See Instructions, Disp# 300 each, Refills: 3, Use to test blood sugarTID. Dx Code E11.42, Pharmacy: [facility]/pharmacy #[id number] Start Date: 12/11/21 Status: Ordered One Touch Verio Glucose Monitor Start: 10/05/17 11:22:00 AM EST, See Instructions, Disp# 1 each, Test blood sugar before meals and at bedtime, Pharmacy: [facility] Start Date: 10/05/17 Status: Ordered One Touch Verio Test Strips Start: 12/11/21 9:41:00 AM EDT, See Instructions, Disp# 300 each, Refills: 3, Use to test blood sugarthree times daily, Note to Pharmacy: ICD-10: E11.42, Pharmacy: [facility]/pharmacy #[id number] Start Date: 12/11/21 Status: Ordered oxyCODONE 5 mg oral tablet Start: 02/02/24 1:38:00 PM EDT, 1 tab, PO, q6h, Disp# 30 tab, Refills: 0, PRN: as needed for pain, Pharmacy: [facility]7 Start Date: 02/02/24 Status: Ordered Mental Status 02/16/24 Barriers to Learning one year None evide nt Mandatory Health Literacy Documentation Yes Health Literacy Communication Barriers N ever Primary Language Citizen Of [place] Problem List Condition Confirmation Course Effective Dates Status Health Status Informant Below knee amputation Confirmed Active Amputation of fifth toe of right foot Confirmed Active Benign hypertension with coincident congestive heart failure Confirmed Active Chronic diastolic (congestive) heart failure Confirmed Active Chronic respiratory failure with hypoxia, on home oxygen therapy Confirmed Active Nonocclusive coronary atherosclerosis of [place] coronary artery Confirmed Active Diabetic peripheral neuropathy associated with type 2 diabetes mellitus Confirmed Active S/P BKA (below knee amputation) unilateral Confirmed Active Hyperlipidemia Confirmed Active Atherosclerosis of [place] arteries of extremities with intermittent claudication, bilateral legs Confirmed Active BETTE (obstructive sleep apnea) Confirmed Active Peripheral arterial disease with history of revascularization Confirmed Active Tobacco user Confirmed Active Type 2 diabetes mellitus with diabetic peripheral angiopathy and gangrene, with long-term current use of insulin Confirmed Active Diagnosis Diagnosis Type Effective Dates Health Status Clinical Service Informant Below knee amputation Discharge Diagnosis 02/16/24 Procedures Procedure Date Related Diagnosis Body Site [...] Com pleted Cardiac catheterization 10/03/[address] C om[address] [place] [address] [facility] Impression: 1. Cardiomegaly without radiographic evidence of congestive failure 2. Right basiar opacities are similar to previous and likely represent scarring/atelectasis. Correlate clinically for evidence of a superimposed pneumonitis [facility] Impression: 1. No pulmonary emboli identified 2. Subsegmental bilateral atelectasis 3. No lymphadenopathy [facility]: 1. No acute abnormality. incidental note is made of diverticulosis without diverticulitis [facility] Right 5th toe [facility] Impression: 1. No evidence of osteomyelitis or abscess [facility] Impression: 1. No focal cortical erosion/osteolysis or agressive periosteal reaction identified to suggest osteomyelitis. No fracture or bone lesion. Scattered [id number] osteoarthritis. Plantar calcaneal spur. Achilles enthesophytes Vital Signs Most recent to oldest [Reference Range]: 1 Heart Rate 88 bpm (02/16/24 1:15 PM) Blood Pressure 124/78mmHg (02/16/24 1:15 PM) Cuff Pulse Pressure 46 mmHg (02/16/24 1:15 PM) BP Location # 1 Right Arm (02/16/24 1:15 PM) Social History Social History Type Response Tobacco Former smoker, Cigar ettes Smoking Status Former Smoker, quit > 1 yr Sex Male I Outpt Note * LORENA Horan Lynn: PERFORM Event Display: HVI Outpt Note Authored Date: [id number] [facility] OUTPATIENT NOTE Name: LILLIAM SAEED Patient Number: [id number] : 1955 Date of Service: 02/16/2024 Chief Complaint: _Follow-up for right leg BKA HPI: _Mr. Saeed is an elderly male who presents to Dr. Greenberg vascular surgery clinic today fora follow-up visit regarding his right leg below-knee amputation site. As you may remember, patient underwent a right leg below-knee amputation due to severe ischemia in December 2023. Postoperatively he unfortunately had at least 2 falls onto the stump. He had superficial wound dehiscence after the falls. He has been slowly healing up since that time. Patient denies any new complaints or concerns, states that it is healing generally well with no drainage, odor, redness, or significant pain. He does have a small area on his tibial tuberosity which became blistered and sore after wearing the John wrap in the extreme heat and humidity. He has stopped wearing the John wrap for a couple days. He does not yet have a stump gyroscope technician. Current Home Meds: (Last Updated 02/15 13:11) aspirin (aspirin 81 mg oral tablet, chewable) [...] long-term current use of insulin Atherosclerosis of [place] arteries of extremities with intermittent claudication, bilateral legs Chronic respiratory failure with hypoxia, on home oxygen therapy Chronic diastolic (congestive) heart failure BETTE (obstructive sleep apnea) Nonocclusive coronary atherosclerosis of [place] coronary artery Hyperlipidemia Diabetic peripheral neuropathy associated with type 2 diabetes mellitus OBJECTIVE Vitals: Last Updated 02/16/24 13:15 Date Temp BP Location Pulse RR SpO2 Pain 02/16/24 124/78 Right Arm 88 93 02/16/24 0 02/02/24 138/72 Right Arm 95 93 Vital Signs are the last 3 documented. [...] (ft-in) Method 11/10/23 109 240 Standing Scale 09/06/23 110.1 242 Standing Scale 12/22/22 108.8 239 Standing Scale Heights and Weights are the last 3 documented. Physical Exam Constitutional: In general patient is a healthy-appearing well-nourished well- developed elderly male no distress. Is alert and oriented with any focal deficits. He is in a wheelchair. His right leg below-knee amputation site has some scabbed areas, most of which was able to be removed easily today as it was loosened. There was minimal to no bleeding. The remainder of the scabs will loosen over time. Otherwise the wound appears to be healing well. He does have a small extremely superficial area over his tibial tuberosity which is consistent with an abrasion ASSESSMENT: _ PLAN: _ 1 ) _status post right leg BKA Patient is generally doing well now about 2 months status post right below-knee amputation. His surgical incision appears to be healing generally well. He does have a small superficial abrasion type area over his tibial tuberosity which the patient and his family feel is likely due to wearing the John wrap in the extreme heat and humidity over the past 2 weeks. There is no erythema to indicate infe ction. We did recommend that he not wear the John wrap until this area is healed. In the meantime, we will write a prescription for a below-knee amputation stump gyroscope technician in order to prepare him for aprosthetic in the future. Patient and his family are advised to call any questions or concerns. Otherwise we will see him back in 4 more weeks for reevaluation of his surgical site. They are agreeable to this plan. Thank you for letting us participate in the care of this patient. Electronic Signature on File CC: Kayla Fernando PA-C,[facility] [address] [facility] 1 [facility] [address] Electronically Reviewed/Signed by: Melissa Horan PA-C Author Signature Dt/Tm:02/16/2024 01:53 PM [facility] [place], [facility] 1 [place] [address] LM Patient Care team information Care Team Personnel Name: AUDREY Enrique Terra L Position: Nurse Pract - Vascular Surg Member Role: Lifetime Relationship Address: Address: [address] [place] [address] [address] [place] [address] Name: Prasanna Wilson Catherine Position: Pharmacist Member Role: Pharmacy - Lifetime Address: Address: [facility] [address] [place] [address] [place] Name: LORENA Gaston Bridget M Position: Physician Make Up Arranger - Vascular Surg Member Role: Lifetime Relationship Address: Address: [address] [place] [address] [address] [place] [address] [place] Name: LORENA Horan Lynn Position: Physician Make Up Arranger Exempt - Vasc Surg Member Role: Lifetime Relationship Address: Address: [address] [place] [id number] Name: LORENA Fernando Jessica A Position: Physician Asst Ext - Family Med Member Role: Primary Care Provider Address: Address: [address] [place] [id number] [place] Care Team Related Persons Name: KAYLA SAEED Address: home [address] [place] [address] Name: LILLIAM SAEED Address: home [address] [facility] [place] [phone] Name: KAYLA AU Address: home [address] [place] [phone]
--- OUTSIDE RECORDS SUMMARY | 2024-05-11 00:16 | External Medical Summary | Continuity of Care Document ---
Author Name Unknown Organization [address] Address [address] [place] [phone] Care Team Providers Care Horticultural Specialty Grower Name Role Phone Kayla Fernando Primary Care Physician [phone] [id number] Date[facility]s): 01/10/24 - 01/10/[address], [address] [facility] [address] [phone] Encounter Diagnosis Below knee amputation(Discharge Diagnosis) - [...] Daily, Disp# 90 tab, Refills: 3, Pharmacy: [facility]/pharmacy #[id number] Start Date: 06/24/20 Status: Ordered atorvastatin 20 mg oral tablet Start: 01/10/24 3:33:00 PM EDT, 1 tab, PO, Daily Start Date: 01/10/24 Status: Ordered BD needle Ultra-Fine Pen 29G x 0.5" Start: 11/02/22 1:45:00 PM EDT, See Instructions, Disp# 100 each, Refills: 5, Use as directed with insulin. Max ____/day. Use new pen needle with each injection., Pharmacy: [facility]/pharmacy #[id number] Start Date: 11/02/22 Status: Ordered BD needle Ultra-Fine Pen Etta 32G x 4mm Start: 12/11/21 9:41:00 AM EDT, See Instructions, Disp# 100 each, Refills: 3, To be used with insulininjections twice daily., Note to Pharmacy: ICD-10: E11.42, Pharmacy: [facility]/pharmacy #[id number] Start Date: 12/11/21 Status: Ordered clopidogrel 75 mg oral tablet Start: 04/08/23 1:05:00 PM EDT, 1 tab, PO, Daily, Disp# 90 tab, Refills: 3, Pharmacy: [facility] Start Date: 04/08/23 Status: Ordered cyclobenzaprine [...] PER WEEK, TAKE 1 EXTRA TABLET, Pharmacy: [place] [id number] Start Date: 05/09/23 Status: Ordered glipiZIDE 5 mg oral tablet Start: 12/26/23 7:14:00 AM EDT, 1 tab, PO, bid, Disp# 60 tab, Refills: 11, Pharmacy: [facility] Start Date: 12/26/23 Status: Ordered Lantus Solostar Pen 100 units/mL subcutaneous solution Start: 01/10/24 3:43:00 PM EDT, 50 unit =, subQ, Daily Start Date: 01/10/24 Status: Ordered lisinopril 30 mg oral tablet Start: 08/02/23 8:56:00 PM EST, 1 tab, PO, Daily, Disp# 90 tab, Refills: 1, Pharmacy: [facility] Start Date: 08/02/23 Status: Ordered Metoprolol Succinate ER 50 mg oral tablet, extended release Start: 08/02/23 8:56:00 PM EST, 1 tab, PO, Daily, Disp# 90 tab, Refills: 1, Pharmacy: [facility] Start Date: 08/02/23 Status: Ordered nitroglycerin 0.4 mg sublingual tablet Start: 06/24/20 1:08:00 PM EST, 1 tab, SL, q5min, Disp# 25 tab, Refills: 3, PRN: Chest Pain, Pharmacy: [facility]/pharmacy #[id number] Start Date: 06/24/20 Status: Ordered nortriptyline 25 mg oral capsule Start: 11/28/23 11:48:00 AM EDT, 1 cap, PO, qhs, Disp# 30 cap, Refills: 11, Pharmacy: [facility] Start Date: 11/28/23 Status: Ordered One Touch Delica (33G) Lancets Start: 08/07/18 9:27:22 AM EST, See Instructions, Disp# 300 unit, Refills: 3, Test blood sugar before meals and at bedtime, Pharmacy: [facility]/pharmacy #[id number] Start Date: 08/07/18 Status: Ordered One Touch Delica Plus (30G) Lancets Start: 12/11/21 9:41:00 AM EDT, See Instructions, Disp# 300 each, Refills: 3, Use to test blood sugarTID. Dx Code E11.42, Pharmacy: [facility]/pharmacy #[id number] Start Date: 12/11/21 Status: Ordered One Touch Verio Glucose Monitor Start: 10/05/17 11:22:00 AM EST, See Instructions, Disp# 1 each, Test blood sugar before meals and at bedtime, Pharmacy: [facility] [place] Start Date: 10/05/17 Status: Ordered One Touch Verio Test Strips Start: 12/11/21 9:41:00 AM EDT, See Instructions, Disp# 300 each, Refills: 3, Use to test blood sugarthree times daily, Note to Pharmacy: ICD-10: E11.42, Pharmacy: [facility]/pharmacy #[id number] Start Date: 12/11/21 Status: Ordered Problem List Condition Confirmation Course Effective Dates Status Health Status Informant Below knee amputation Confirmed Active Amputation of fifth toe of right foot Confirmed Active Benign hypertension with coincident congestive heart failure Confirmed Active Chronic diastolic (congestive) heart failure Confirmed Active Chronic respiratory failure with hypoxia, on home oxygen therapy Confirmed Active Nonocclusive coronary atherosclerosis of [place] coronary artery Confirmed Active Diabetic peripheral neuropathy associated with type 2 diabetes mellitus Confirmed Active Hyperlipidemia Confirmed Active Atherosclerosis of [place] arteries of extremities with intermittent claudication, bilateral [...] Com pleted Cardiac catheterization 10/03/17 C ompleted [address] [place] [address] [facility] Impression: 1. Cardiomegaly without radiographic evidence of congestive failure 2. Right basiar opacities are similar to previous and likely represent scarring/atelectasis. Correlate clinically for evidence of a superimposed pneumonitis 4[facility] Impression: 1. No pulmonary emboli identified 2. Subsegmental bilateral atelectasis 3. No lymphadenopathy [facility] Impression: 1. No acute abnormality. incidental note is made of diverticulosis without diverticulitis 6[facility] Right 5th toe [facility] Impression: 1. No evidence of osteomyelitis or abscess [facility] Impression: 1. No focal cortical erosion/osteolysis or agressive periosteal reaction identified to suggest osteomyelitis. No fracture or bone lesion. Scattered [id number] osteoarthritis. Plantar calcaneal spur. Achilles enthesophytes Social History Social History Type Response Tobacco Former smoker, Cigar ettes Smoking Status Current every day he ed smoker Sex Male Patient Care team information Care Team Personnel Name: AUDREY Enrique Terra L Position: Nurse Pract - Vascular Surg Member Role: Lifetime Relationship Address: Address: [address] [facility] [place] [address] [place] Name: Prasanna Wilson Catherine Position: Pharmacist Member Role: Pharmacy - Lifetime Address: Address: [facility] [address] [place] [address] [place] Name: LORENA Gaston Bridget M Position: Physician Plant Utility Person - Vascular Surg Member Role: Lifetime Relationship Address: Address: [address] [place] [address] [address] [place] [address] Name: LORENA Horan Lynn Position: Physician Plant Utility Person Exempt - Vasc Surg Member Role: Lifetime Relationship Address: Address: [address] [place] [address] [place] Name: LORENA Fernando Jessica A Position: Physician Asst Exmpt - Family Med Member Role: Primary Care Provider Address: Address: [address] [place] [address] Care Team Related Persons Name: KAYLA SAEED Address: home [address] [place] [address] Name: LILLIAM SAEED Address: [address] [facility] [id number] Name: KAYLA AU Address: home [address] [place] [id number]
--- OUTSIDE RECORDS SUMMARY | 2024-05-11 00:17 | External Medical Summary ---
Author Name Unknown Address Unknown Organization K1F:[facility]ATORY [facility] - [address] [place] [address] Laboratory Report Ordering Provider Test Date Status NICHOLAS HI 12/27/2023 05:23:00 Final Observation Date Value Abnormality Reference (Units ) Status SYNC LEUKOCYTES IN BLOOD BY AUTOMATED COUNT 12/27/2023 05:23:00 9.22 4.00-10.80 (K/uL) Final Segs 12/27/2023 05:23:00 61.3 40.0-75.0 (%) Final Lymphs % 12/27/2023 05:23:00 23.8 18.0-42.0 (%) Final Monos 12/27/2023 05:23:00 7.4 1.0-11.0 (%) Final Eosinophils 12/27/2023 05:23:00 6.4 Above high normal 0.0-6.0 (%) Final Basos 12/27/2023 05:23:00 0.8 0.0-2.0 (%) Final Immature Granulocyte, Percent 12/27/2023 05:23:00 0.3 0.0-2.0 (%) Final Absolute Segs 12/27/2023 05:23:00 5.66 1.80-7.70 (K/uL) Final Lymphs, absolute 12/27/2023 05:23:00 2.19 1.00-4.80 (K/ul) Final Monos, Abs 12/27/2023 05:23:00 0.68 0.00-1.10 (K/uL) Final Eos, Abs 12/27/2023 05:23:00 0.59 0.00-0.70 (K/uL) Final Basos, Abs 12/27/2023 05:23:00 0.07 0.00-0.20 (K/uL) Final Immature Granulocytes, Number 12/27/2023 05:23:00 0.03 0.00-0.20 (K/uL) Final Performing Location [facility]ORY [facility] - [address] [facility] [address] [place] [address]
--- OUTSIDE RECORDS SUMMARY | 2024-05-11 00:17 | External Medical Summary ---
Author Name Unknown Address Unknown Organization K1F:[facility] - [address] [place] [address] Laboratory Report Ordering Provider Test Date Status NICHOLAS HI 01/03/2024 07:10:00 Final Observation Date Value Abnormality Reference (Units ) Status SYNC LEUKOCYTES IN BLOOD BY AUTOMATED COUNT 01/03/2024 07:10:00 7.51 4.00-10.80 (K/uL) Final Segs 01/03/2024 07:10:00 52.3 40.0-75.0 (%) Final Lymphs % 01/03/2024 07:10:00 28.0 18.0-42.0 (%) Final Monos 01/03/2024 07:10:00 9.1 1.0-11.0 (%) Final Eosinophils 01/03/2024 07:10:00 9.9 Above high normal 0.0-6.0 (%) Final Basos 01/03/2024 07:10:00 0.4 0.0-2.0 (%) Final Immature Granulocyte, Percent 01/03/2024 07:10:00 0.3 0.0-2.0 (%) Final Absolute Segs 01/03/2024 07:10:00 3.94 1.80-7.70 (K/uL) Final Lymphs, absolute 01/03/2024 07:10:00 2.10 1.00-4.80 (K/ul) Final Monos, Abs 01/03/2024 07:10:00 0.68 0.00-1.10 (K/uL) Final Eos, Abs 01/03/2024 07:10:00 0.74 Above high normal 0.00-0.70 (K/uL) Final Basos, Abs 01/03/2024 07:10:00 0.03 0.00-0.20 (K/uL) Final Immature Granulocytes, Number 01/03/2024 07:10:00 0.02 0.00-0.20 (K/uL) Final Performing Location LABORATORY [facility] - [address] [place] [address]
--- OUTSIDE RECORDS SUMMARY | 2024-05-11 00:17 | External Medical Summary ---
Author Name Unknown Address Unknown Organization K1F:LABORATORY [facility] [place] - [facility] [place] [address] Laboratory Report Ordering Provider Test Date Status NICHOLAS HI 01/03/2024 07:10:00 Final Observation Date Value Abnormality Reference (Units ) Status WBC, Total 01/03/2024 07:10:00 7.51 4.00-10.80 (K/uL) Final RBC 01/03/2024 07:10:00 4.26 4.50-5.25 (M/uL) Final Hemoglobin 01/03/2024 07:10:00 11.2 Below low normal 14.0-16.8 (g/dL) Final HCT 01/03/2024 07:10:00 38.7 Below low normal 40.0-48.4 (%) Final MCV 01/03/2024 07:10:00 90.8 82.0-99.5 (fL) Final MCH 01/03/2024 07:10:00 26.3 27.0-34.0 (pg) Final MCHC 01/03/2024 07:10:00 28.9 32.0-36.0 (g/dL) Final RDW 01/03/2024 07:10:00 16.0 11.5-15.5 (%) Final Platelets 01/03/2024 07:10:00 197 140-400 (K/uL) Final MPV 01/03/2024 07:10:00 11.2 6.6-11.1 (fL) Final Nucleated erythrocytes/100 leukocytes [Ratio] in Blood by Automated count 01/03/2024 07:10:00 0 <=0 (/100 WBCs) Final Performing Location LABORATORY [facility] [place] - [address] [place] [address]
--- OUTSIDE RECORDS SUMMARY | 2024-05-11 00:17 | External Medical Summary ---
Author Name Unknown Address Unknown Organization K1F:LABORATORY [facility] - [address] [place] [address] Laboratory Report Ordering Provider Test Date Status NICHOLAS HI 01/03/2024 07:10:00 Final Observation Date Value Abnormality Reference (Units ) Status BUN 01/03/2024 07:10:00 13 6-20 (mg/dL) Final Creatinine 01/03/2024 07:10:00 0.7 0.6-1.2 (mg/dL) Final Glomerular filtration rate/1.73 sq M.predicted [Volume Rate/Area] in Serum, Plasma or Blood by Creatinine-based formula (CKD-EPI) 01/03/2024 07:10:00 >90 >=60 (mL/min) Final eGFR is calculated based on the CKD-EPI 2020 equation Sodium 01/03/2024 07:10:00 141 135-146 (m mol/L) Final Potassium 01/03/2024 07:10:00 4.6 3.5-5.1 (m mol/L) Final Cl 01/03/2024 07:10:00 98 98-107 (mm ol/L) Final CO2 01/03/2024 07:10:00 28 22-32 (mmo l/L) Final Anion gap 01/03/2024 07:10:00 15 7-15 (mmol /L) Final Glucose 01/03/2024 07:10:00 128 Above high normal 70 -120 (mg/dL) Final Calcium 01/03/2024 07:10:00 8.8 8.4-10.2 ( mg/dL) Final Performing Location LAB[facility]ATORY [facility] - [address] [place] [address]
--- OUTSIDE RECORDS SUMMARY | 2024-05-11 00:17 | External Medical Summary | Summary of Care ---
Author Name Unknown Organization [facility] Address [address] [place] [address] Phone [phone] Care Team Providers Care Process Development Chemist Name Role Phone Mckenna Fernando PA-C Primary Care Provide r Reason for Visit * Reason Onset Date Comments Other 12/07/2023 Encounter Details Date Type Department Care Team (Late st Contact Info) Description 12/07/2023 Telephone Wound Care, [facility] [address] [place] [address] Yajaira Gonzales DPM [address] [facility] [place] [id number] Other Allergies Active Allergy Reactions Criticality Noted Date [...] Problem Noted Date Diagnosed Date 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 This nurse spoke with the KALA Whaley in the [facility] ED and gavereport as to Amrit coming to be seen for Blue foot noted at his visit today with and his Vascular surgeon is at [facility]. She thanked me for the phone call and heads up. * Telephone Encounter - Carmen Duckworth OSA - 12/07/2023 2:11 PM EDT Paulino from central scheduling called stating the patient's daughter, Mckenna, is requesting a woundnurse call [facility] to inform them of the reason for Dr. Gonzales's referral [facility] facility today. documented in this encounter Plan of Treatment [...] Screening 06/06/2018 06/06/2017 COVID-19 Vaccine (1 - season) 2023 HbA1c 06/08/2023 12/06/2022, 10/01/2017 GFR [...] this encounter Medical Devices Implanted Type Area Cloth Presser Device Identifier Shelf Expiration Date Model / Serial / Lot Stent Peripheral 7 Diam 150x40 - [id number] Implanted:Qty: 1 on 12/06/2022 by Jasper Laguerre [place] [facility] [place] [employer] : VASCULAR [id number] 06/07/2024 [id number] 40-150 / / [id number] documented as of this encounter Advance Directives [...] the patient have Health Care Power of Child Protection Specialist? No Care Teams Process Development Chemist Relationship Specialty Start Date End Date Mckenna Fernando PA-C [address] [place] [address], [place] [address] PCP - General Physician Nuclear Fuel Enrichment Technician 11/05/22 documented as of this encounter
--- OUTSIDE RECORDS SUMMARY | 2024-05-11 00:17 | External Medical Summary ---
Author Name Unknown Address Unknown Organization K1F:LABORATORY [facility] - [facility] [place] [address] Laboratory Report Ordering Provider Test Date Status NICHOLAS HI 12/27/2023 05:23:00 Final Observation Date Value Abnormality Reference (Units ) Status WBC, Total 12/27/2023 05:23:00 9.22 4.00-10.80 (K/uL) Final RBC 12/27/2023 05:23:00 4.10 4.50-5.25 (M/uL) Final Hemoglobin 12/27/2023 05:23:00 10.9 Below low normal 14.0-16.8 (g/dL) Final HCT 12/27/2023 05:23:00 36.3 Below low normal 40.0-48.4 (%) Final MCV 12/27/2023 05:23:00 88.5 82.0-99.5 (fL) Final MCH 12/27/2023 05:23:00 26.6 27.0-34.0 (pg) Final MCHC 12/27/2023 05:23:00 30.0 32.0-36.0 (g/dL) Final RDW 12/27/2023 05:23:00 15.9 11.5-15.5 (%) Final Platelets 12/27/2023 05:23:00 375 140-400 (K/uL) Final MPV 12/27/2023 05:23:00 10.9 6.6-11.1 (fL) Final Nucleated erythrocytes/100 leukocytes [Ratio] in Blood by Automated count 12/27/2023 05:23:00 0 <=0 (/100 WBCs) Final Performing Location LABORATORY [facility] - [address] [place] [address]
--- OUTSIDE RECORDS SUMMARY | 2024-05-11 00:17 | External Medical Summary | Summary of Care ---
Author Name Unknown Organization [facility] Address [address] [place] [address] Phone [phone] Care Team Providers Care Criminology Professor Name Role Phone Mckenna Fernando PA-C Primary Care Provide r Reason for Visit * Reason Onset Date Comments Other 12/07/2023 Encounter Details Date Type Department Care Team (Late st Contact Info) Description 12/07/2023 Telephone Wound Care, [facility] [address] [place] [address] Yajaira Gonzales DPM [address] [facility] [place] [id number] Other Allergies Active Allergy Reactions Criticality Noted [...] Problem Noted Date Diagnosed Date 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 Gonzales's referral [facility] facility today. documented in this encounter Plan [...] this encounter Medical Devices Implanted Type Area Electronic Test Technician Device Identifier Shelf Expiration Date Model / Serial / Lot Stent Peripheral 7 Diam 150x40 - [id number] Implanted:Qty: 1 on 12/06/2022 by Jasper Laguerre MD at OR [facility] Right: SFA [employer] : VASCULAR [id number] 06/07/2024 [id number] 40-150 / / [id number] documented as of this encounter Advance Directives [...] the patient have Health Care Power of Dietary Aid? No Care Teams Criminology Professor Relationship Specialty Start Date End Date Mckenna Fernando PA-C [address] [place] [address], [place] [address] PCP - General Physician Charge Machine Operator 11/05/22 documented as of this encounter
--- OUTSIDE RECORDS SUMMARY | 2024-05-11 00:17 | External Medical Summary ---
Author Name Unknown Address Unknown Organization K1F:LABORATORY [facility] - [address] [place] [address] Laboratory Report Ordering Provider Test Date Status NICHOLAS HI 12/27/2023 05:23:00 Final Observation Date Value Abnormality Reference (Units ) Status BUN 12/27/2023 05:23:00 16 6-20 (mg/dL) Final Creatinine 12/27/2023 05:23:00 0.9 0.6-1.2 (mg/dL) Final Glomerular filtration rate/1.73 sq M.predicted [Volume Rate/Area] in Serum, Plasma or Blood by Creatinine-based formula (CKD-EPI) 12/27/2023 05:23:00 >90 >=60 (mL/min) Final eGFR is calculated based on the CKD-EPI 2020 equation Sodium 12/27/2023 05:23:00 140 135-146 (m mol/L) Final Potassium 12/27/2023 05:23:00 4.4 3.5-5.1 (m mol/L) Final Cl 12/27/2023 05:23:00 98 98-107 (mm ol/L) Final CO2 12/27/2023 05:23:00 33 Above high normal 22 -32 (mmol/L) Final Anion gap 12/27/2023 05:23:00 9 7-15 (mmol /L) Final Glucose 12/27/2023 05:23:00 84 70-120 (mg /dL) Final Calcium 12/27/2023 05:23:00 9.2 8.4-10.2 ( mg/dL) Final Performing Location LAB[facility]ATORY [facility] - [address] [place] [address]
[2024-05-11 06:21] LABS: Basophils # (auto) 0.06 K/uL (0.00-0.20); Basophils % (auto) 0.6 %; Eosinophils # (auto) 0.41 K/uL (0.00-0.50); Eosinophils % (auto) 3.8 %; Hemoglobin 10.9 g/dl (14.0-18.0); Immature Granulocytes # (auto) 0.03 K/uL (0.01-0.20); Immature Granulocytes % (auto) 0.3 %; Lymphocytes # (auto) 1.91 K/uL (1.20-3.40); Lymphocytes % (auto) 17.7 %; Mean Corpuscular Hemoglobin 23.9 pg (25.0-34.0); Mean Corpuscular Hgb Conc 29.5 g/dL (32.0-36.0); Mean Corpuscular Volume 81.1 fL (80.0-100.0); Mean Platelet Volume 11.7 fL (9.4-12.4); Monocytes # (auto) 1.05 K/uL (0.11-0.59); Monocytes % (auto) 9.7 %; Neutrophils # (auto) 7.31 K/uL (1.40-6.50); Neutrophils % (auto) 67.9 %; Platelet Count 277 K/uL (130-400); RDW Coefficient of Variation 16.1 % (11.5-14.5); RDW Standard Deviation 47.7 fL (36.4-46.3); Red Blood Count 4.56 M/uL (4.70-6.10); White Blood Count 10.77 K/ul (4.8-10.8)
[2024-05-11 06:30] LABS: BUN Creatinine Ratio 25.7 (10-20); Magnesium 1.7 mg/dl (1.7-2.4); Potassium 4.4 mmol/L (3.5-5.1)
[2024-05-11 07:30] LABS: Estimated Average Glucose 206 mg/dl; Hemoglobin A1C 8.8 % (4.5-5.6)
--- NOTE | 2024-05-11 08:38 | Hospitalist Progress Note ---
Date of Service May 11, 2024 Assessment & Plan (1) CHF (congestive heart failure): Plan: 69 y/o with HfPEF recently admitted to [facility] with syncope and volume depletion, lasix and lisinopril were stopped. admitted here shortly after in acute heart failure Acute on chronic HFpEF chronic hypoxic respiratory failure on 4 L nasal cannula at home, currently oxygen level is at his baseline - Diurese with IV Lasix 40mg BID - ins and outs negative and weight decreased overnight symptoms improved remains volume overloaded continue current dose of Lasix - Monitor renal function and electrolytes with diuresis - BUN/creatinine at baseline and electrolytes acceptable today - Daily weights (cannot stand d/t RLE BKA) and monitor I/O q shift - Salt and fluid restrict - Duonebs QIDR and q2 prn dyspnea/wheezing - Cannot tolerate Jardiance, consider resuming low dose SHERMAN inhibitor - Continue metoprolol succinate 50mg daily Cr remains 1 and potassium normal (2) Pulmonary nodule: Plan: 9 mm calcified lesion at takeoff YASMEEN bronchus may be partially obstructing, YASMEEN volume loss / opacity personally reviewed CT images and agree with interpretation above could be granuloma, malignancy, aspirated foreign body. Is this related to his chest pain. -consulted pulmonary - appreciate evaluation by Dr. Alvarez states he had bronchoscopy in 2020 for calcified polyp, biopsy was negative for malignancy, here events recommends follow-up with interventional pulmonary -could have postobstructive pneumonia - mild leukocytosis, will check procal = negative, hold off on antibiotics for now monitor for any infectious signs and symptoms (3) Chest pain: Plan: Acute chest heaviness - now resolved. I think this was caused by pulmonary edema history of coronary artery disease - Detectable HS trop of 24 down trended to 22, which is likely minimal myocardial demand ischemia - Echo completed in December 2023, preserved EF, concentric LVH, elevated RVSP, mild to mod TR, grade I diastolic dysfunction - Already on ASA and Plavix - Statin recently stopped per daughter by [facility] - Continue Metoprolol Succ 50mg daily (4) S/P below knee amputation: Plan: Chronic secondary to PVD/PAD - Continue aspirin and plavix - Recently stopped statin therapy as above - Follows with Dr. Greenberg (5) Chronic respiratory failure: Plan: Mixed respiratory failure with hypoxia and hypercapnia, home oxygen 4 L BETTE and noncompliant with CPAP - Continue supplemental O2 with goal pulse ox 88-92% - avoid over oxygenation (6) Type 2 diabetes mellitus: Plan: A1c was 8.8 hypoglycemic this morning, stopped glipizide held long-acting insulin adjusted short acting insulin to 15: 5 blood glucose improved later in the day (7) Pulmonary hypertension: Plan: noted (8) COPD (chronic obstructive pulmonary disease): Plan: treatment as above, not currently wheezing doubt that he is in acute exacerbation Plan Chronic medical issues - HTN - continue metoprolol succ as noted above, diuresis and consider resumption of low dose lisinopril - GERD - continue protonix CKD stage II creatinine is at baseline morbid obesity BMI of 36 VTE ppx continue enoxaparin Admission and Anticipated Discharge Date Admission Date: May 10, 2024 Subjective shortness of breath still present but has significantly improved from last night, has been urinating a lot, leg edema persists chest pressure has resolved very poor historian thinks he had a bronchoscopy in the past cannot tell me when exactly this was or where Physical Exam 2 Physical Exam: PHYSICAL EXAMINATION Last 24h vital signs reviewed, see documentation in flowsheet General: comfortable appearing, no distress HEENT: Normocephalic, atraumatic, pupils round and equal, sclerae anicteric, no conjunctival injection, moist mucus membranes Lungs: increased respiratory effort. crackles bilaterally posteriorly all maria, no wheezing Heart: Regular rate and rhythm, no murmurs. large neck probably has JVD Abdomen: Soft, nontender, nondistended. Bowel sounds present. Extremities: Warm, dry, well-perfused. 2+ bilateral extremity edema. Neuro: Alert and oriented x hospital and basic situation though vague historian and forgetful, face symmetric, moves 4 extremities well Psych: Normal affect and behavior Results & Data Results & Data Vital Signs (Past 12 Hours) Vital Signs Temp Pulse Pulse Pulse Resp BP BP 05/11/24 07:41 36.9 C 56 L 18 106/71 05/11/24 07:23 88 05/11/24 07:06 76 18 05/11/24 03:50 36.5 C 55 L 16 115/74 05/10/24 23:34 36.6 C 76 16 117/70 05/10/24 22:07 94 H 05/10/24 21:21 73 16 05/10/24 21:15 05/10/24 21:15 36.7 C 88 17 143/90 H 05/10/24 20:34 84 24 127/80 Pulse Ox O2 Del Method O2 Flow Rate 05/11/24 07:41 99 Nasal Cannula 4.5 05/11/24 07:23 05/11/24 07:06 94 Nasal Cannula 5 05/11/24 03:50 94 Nasal Cannula 4.5 05/10/24 23:34 95 Nasal Cannula 4.5 05/10/24 22:07 05/10/24 21:21 96 Nasal Cannula 5 05/10/24 21:15 Nasal Cannula 6 05/10/24 21:15 96 Nasal Cannula 6 05/10/24 20:34 92 Nasal Cannula 5 Laboratory Results 05/11/24 05:19 05/11/24 05:19 PG Care Time/CCT Total # of Minutes Spent Total Time Spent with Patient: Total time spent is greater than 50% in coordination of care (as documented) at patient's floor/unit and/or counseling patient: Coding Level of Care Code 98432 SUB INP/OBS CARE 3/50MIN Diagnoses Chronic diastolic congestive heart failure I50.32 Heart failure chronicity: chronic Heart failure type: diastolic Pulmonary nodule R91.1 Chest pain R07.9 S/P below knee amputation Z89.519 Chronic respiratory failure, unspecified whether with hypoxia or hypercapnia J96.10 Respiratory failure complication: unspecified whether with hypoxia or hypercapnia Type 2 diabetes mellitus with diabetic peripheral angiopathy and gangrene, with long-term current use of insulin E11.52; Z79.4 Diabetes mellitus complication status: with circulatory complication Diabetes mellitus long term care social worker insulin use: with mcfp use Pulmonary hypertension I27.20 COPD (chronic obstructive pulmonary disease) J44.9 (1) CHF (congestive heart failure) Heart failure chronicity: chronic Heart failure type: diastolic Qualified Code(s): I50.32 - Chronic diastolic (congestive) heart failure (5) Chronic respiratory failure Respiratory failure complication: unspecified whether with hypoxia or hypercapnia Qualified Code(s): J96.10 - Chronic respiratory failure, unspecified whether with hypoxia or hypercapnia (6) Type 2 diabetes mellitus Diabetes mellitus complication status: with circulatory complication Diabetes mellitus long term care social worker insulin use: with mcfp use Qualified Code(s): E11.52 - Type 2 diabetes mellitus with diabetic peripheral angiopathy with gangrene; Z79.4 - assisted (current) use of insulin
[2024-05-11] MEDS: FUROSEMIDE 40 MG/4 ML VIAL IV SCH (08:46)
[2024-05-11] MEDS: PANTOprazole 40 MG TAB PO SCH (08:46)
[2024-05-11] MEDS: METOPROLOL SUCC 50MG EXT REL TAB PO SCH (08:47)
[2024-05-11] MEDS: CLOPIDOGREL BISULFATE 75 MG TAB PO SCH (08:47)
[2024-05-11] MEDS: ASPIRIN 81 MG ECTAB PO SCH (08:47)
--- NOTE | 2024-05-11 09:23 | Pulmonary Consultation ---
Date of Consultation May 11, 2024 Assessment & Plan (1) Abnormal chest CT: (2) BETTE (obstructive sleep apnea): (3) COPD (chronic obstructive pulmonary disease): (4) Ex-smoker: (5) Pulmonary hypertension: (6) (HFpEF) heart failure with preserved ejection fraction: Plan CT chest 05/10/2024 personally reviewed: Endobronchial lesion/calcified polyp appreciated at the uptake of the left upper lobe with obstructive atelectasis Minimal mosaicism appreciated bilaterally Motion degraded study Cardiomegaly No significant mediastinal lymphadenopathy 2D echo 12/10/2023: EF 60-65%, grade 1 diastolic dysfunction, mild concentric LVH, RV mild to moderately dilated, RVSP 50-60 mmHg --Acute on chronic hypoxic respiratory failure Usually on 4 L oxygen at home [id number] Likely secondary to CHF exacerbation Pulmonary hypertension BNP 197 Procalcitonin negative Absolute eosinophil count 410 on 05/11/2024 --Abnormal chest CT Patient has atelectasis of the left upper lobe with a calcified 8 mm opacity at the takeoff Postobstructive pneumonia cannot be ruled out Patient did have bronchoscopy done 04/06/2021 which showed sessile mobile polyp right at the takeoff of the left upper lobe and was negative for malignancy I would recommend Interventional pulmonary to look at the patient --Pulmonary hypertension Likely combination of type II as well as untreated sleep apnea --BETTE Noncompliant with CPAP --Ex-smoker 35 years smoking history, quit 20 years ago Encouraged to continue abstinence from smoking PFTs as an outpatient Plan: When it comes to endobronchial calcified lesion in the left upper lobe, patient already had bronchoscopy done 03/2021. Pathology was negative for malignancy At that time I had advised the patient to follow-up with interventional pulmonary as an outpatient to see if they are able to take it out No plan for bronchoscopy Continue with diuretics to keep the patient negative balance Recommend to keep O2 saturation between 90-92% Case was discussed with primary team Please note the above document was generated using voice recognition software. It may contain grammatical, syntax or spelling errors.Any formal questions or concerns about the content, text or information contained within the body of this dictation should be directly addressed to the provider for clarification. History of Present Illness Attending Physician: Yajaira Pelaez MD History of Present Illness 69-year-old male presented to the hospital with complaints of shortness of breath going on since last couple of weeks. Past medical history of type 2 diabetes, coronary artery disease, dyslipidemia, BETTE noncompliant with CPAP Pulmonary consulted for abnormal CT chest At the time of examination patient was saturating 95% on 4 L, I went down to 2 L He was not in any respiratory distress Denies any chest pain. He stated that his shortness of breath is improving. Denied any fever or chills No dysuria, no diarrhea No nausea vomiting. He is not on any inhalers at home. Denied any headache or blurry vision Social history: [id number] smoking history quit approximately 20 years ago years ago, social alcohol, denies any illicit drug use Allergies Allergy/AdvReac Type Severity Reaction Status Date / Time empagliflozin Allergy Intermediate Nausea, Verified 05/10/24 16:21 [From Jardiance] Dizziness nitroglycerin Allergy Intermediate Unknown - Unverified 05/10/24 16:17 Was just told to not take it as precaution Home Medications Medication Instructions Recorded Confirmed Type aspirin 81 mg tablet,delayed 81 mg PO QAM 04/02/21 05/10/24 History release insulin detemir U-100 100 unit/mL 50 unit subcut BID 04/02/21 05/10/24 History (3 mL) subcutaneous pen (Levemir FlexTouch U-100 Insulin) metformin 1,000 mg tablet 1,000 mg PO BID 04/02/21 05/10/24 History metoprolol succinate 50 mg 50 mg PO QAM 04/02/21 05/10/24 History tablet,extended release 24 hr clopidogrel 75 mg tablet 75 mg PO QAM 01/12/23 05/10/24 History nortriptyline 25 mg capsule 0 mg PO HS 01/12/23 05/10/24 History pantoprazole 40 mg tablet,delayed 40 mg PO QAM 01/12/23 05/10/24 History release (Protonix) glipizide 5 mg tablet 5 mg PO BID 12/15/23 05/10/24 History Patient History Medical History Gangrene due to arterial insufficiency Septic shock Pulmonary hypertension Hyperlipidemia Family History Other Family history non-contributory Social History Smoking Status: Former smoker Tobacco Type: Cigarettes Cigarettes Per Day: na; Second Hand Exposure: No; Do You Dip or Chew Tobacco: No; Hx Alcohol Use: Yes (occasionally) Alcohol type: other Hx Substance Use: No Preferred Language: Citizen Of [place] Communication Ability: Effective Purchasing Coordinator Required: No Beliefs That Will Affect Care: None Current Living Situation: Family Current Living Situation Comment: with son and daughter inlaw How many Children do You have: 5 Feels Safe at Home: Yes Assistive Devices: Cane, Oxygen - Continuous and Wheelchair Review of Systems 2 Review of Systems: All systems reviewed & are unremarkable except as noted in HPI & below Physical Exam 2 Physical Exam: Constitutional: No acute distress HEENT: EOMI, PERRLA Respiratory system: Decreased air entry bilaterally, no wheeze, no rhonchi, mild crackles bilateral lower lobes CVS: S1-S2 positive, no murmurs or gallops Abdomen: Soft, nontender, nondistended, positive bowel sounds x4, obese Extremities: +2 pulses bilaterally radialis/ dorsalis pedis, no cyanosis, +2 pitting edema left lower extremity, right BKA Neuro: Awake alert oriented x3 Psych: Normal mood and affect G/U: No Choi Skin: no rashes, warm and dry Lymphatic: no cervical or axillary lymphadenopathy Results & Data Results & Data Vital Signs (Past 12 Hours) Vital Signs Temp Pulse Pulse Pulse Resp BP BP 05/11/24 07:41 36.9 C 56 L 18 106/71 05/11/24 07:23 88 05/11/24 07:06 76 18 05/11/24 03:50 36.5 C 55 L 16 115/74 05/10/24 23:34 36.6 C 76 16 117/70 05/10/24 22:07 94 H 05/10/24 21:21 73 16 Pulse Ox O2 Del Method O2 Flow Rate 05/11/24 07:41 99 Nasal Cannula 4.5 05/11/24 07:23 05/11/24 07:06 94 Nasal Cannula 5 05/11/24 03:50 94 Nasal Cannula 4.5 05/10/24 23:34 95 Nasal Cannula 4.5 05/10/24 22:07 05/10/24 21:21 96 Nasal Cannula 5 Laboratory Results 05/11/24 05:19 PG Care Time/CCT Total # of Minutes Spent Total Time Spent with Patient: Total time spent is greater than 50% in coordination of care (as documented) at patient's floor/unit and/or counseling patient: Coding Level of Care Code 05805 INT INP/OBS CARE 3/75MIN Diagnoses Abnormal chest CT R93.89 BETTE (obstructive sleep apnea) G47.33 COPD (chronic obstructive pulmonary disease) J44.9 Ex-smoker Z87.891 Pulmonary hypertension I27.20 (HFpEF) heart failure with preserved ejection fraction I50.30
[2024-05-11] MEDS: LANTUS PER UNIT CHARGE SQ SCH (09:35)
[2024-05-11] MEDS ORDERED: Nursing to Pharmacy Communication ONE ×2 (10:34→15:38)
[2024-05-11] MEDS: INSULIN ASPART PER UNIT CHARGE SC SCH ×2 (12:16→18:12)
[2024-05-12 08:55] LABS: BUN Creatinine Ratio 25.6 (10-20); Creatinine Clr Calc Pharmacy 71.5 ml/min; Potassium 4.2 mmol/L (3.5-5.1)
[2024-05-12] MEDS: ENOXAPARIN INJ 40 MG/0.4 ML SYR SQ SCH (08:55)
--- NOTE | 2024-05-12 11:17 | Pulmonology Progress Note ---
Date of Service May 12, 2024 Assessment & Plan (1) Abnormal chest CT: (2) BETTE (obstructive sleep apnea): (3) COPD (chronic obstructive pulmonary disease): (4) Ex-smoker: (5) Pulmonary hypertension: (6) (HFpEF) heart failure with preserved ejection fraction: Plan CT chest 05/10/2024 personally reviewed: Endobronchial lesion/calcified polyp appreciated at the uptake of the left upper lobe with obstructive atelectasis Minimal mosaicism appreciated bilaterally Motion degraded study Cardiomegaly No significant mediastinal lymphadenopathy 2D echo 12/10/2023: EF 60-65%, grade 1 diastolic dysfunction, mild concentric LVH, RV mild to moderately dilated, RVSP 50-60 mmHg --Acute on chronic hypoxic respiratory failure Usually on 4 L oxygen at home [id number] Likely secondary to CHF exacerbation Pulmonary hypertension BNP 197 Procalcitonin negative Absolute eosinophil count 410 on 05/11/2024 --Abnormal chest CT Patient has atelectasis of the left upper lobe with a calcified 8 mm opacity at the takeoff Postobstructive pneumonia cannot be ruled out Patient did have bronchoscopy done 04/06/2021 which showed sessile mobile polyp right at the takeoff of the left upper lobe and was negative for malignancy I would recommend Interventional pulmonary to look at the patient --Pulmonary hypertension Likely combination of type II as well as untreated sleep apnea --BETTE Noncompliant with CPAP --Ex-smoker 35 years smoking history, quit 20 years ago Encouraged to continue abstinence from smoking PFTs as an outpatient Plan: When it comes to endobronchial calcified lesion in the left upper lobe, patient already had bronchoscopy done 03/2021. Pathology was negative for malignancy At that time I had advised the patient to follow-up with interventional pulmonary as an outpatient to see if they are able to take it out No plan for bronchoscopy Continue with diuretics to keep the patient negative balance Recommend to keep O2 saturation between 90-92% No further recommendation from pulmonary perspective, will sign off Please call directly with any questions Please note the above document was generated using voice recognition software. It may contain grammatical, syntax or spelling errors.Any formal questions or concerns about the content, text or information contained within the body of this dictation should be directly addressed to the provider for clarification. Admission and Anticipated Discharge Date Admission Date: May 10, 2024 Subjective Patient seen and examined at bedside. No acute distress, notable symptoms overnight Patient was resting comfortably at the time of examination. He was saturating 93-94% on 3 L nasal cannula No headache, denied any chest pain Has been diuresing well No nausea vomiting Fair appetite Denied any cough or chest pain Review of Systems 2 Review of Systems: All systems reviewed & are unremarkable except as noted in Subjective Physical Exam 2 Physical Exam: Constitutional: No acute distress HEENT: EOMI, PERRLA Respiratory system: Decreased air entry bilaterally, no wheeze, no rhonchi, mild crackles bilateral lower lobes CVS: S1-S2 positive, no murmurs or gallops Abdomen: Soft, nontender, nondistended, positive bowel sounds x4, obese Extremities: +2 pulses bilaterally radialis/ dorsalis pedis, no cyanosis, +1 pitting edema left lower extremity, right BKA Neuro: Awake alert oriented x3 Psych: Normal mood and affect G/U: No Choi Skin: no rashes, warm and dry Lymphatic: no cervical or axillary lymphadenopathy Results & Data Results & Data Vital Signs (Past 12 Hours) Vital Signs Temp Pulse Pulse Resp BP Pulse Ox O2 Del Method 05/12/24 08:50 Nasal Cannula 05/12/24 08:46 81 05/12/24 07:52 36.5 C 82 18 132/81 98 Nasal Cannula 05/12/24 06:58 78 18 93 Nasal Cannula 05/12/24 02:51 Nasal Cannula 05/12/24 02:13 36.6 C 79 16 99/62 L 93 Nasal Cannula 05/11/24 23:58 80 O2 Flow Rate 05/12/24 08:50 4 05/12/24 08:46 05/12/24 07:52 4 05/12/24 06:58 4 05/12/24 02:51 4 05/12/24 02:13 4 05/11/24 23:58 Laboratory Results 05/11/24 05:19 05/12/24 07:29 PG Care Time/CCT Total # of Minutes Spent Total Time Spent with Patient: Total time spent is greater than 50% in coordination of care (as documented) at patient's floor/unit and/or counseling patient: Coding Level of Care Code 48975 SUB INP/OBS CARE 2/35MIN Diagnoses Abnormal chest CT R93.89 BETTE (obstructive sleep apnea) G47.33 COPD (chronic obstructive pulmonary disease) J44.9 Ex-smoker Z87.891 Pulmonary hypertension I27.20 (HFpEF) heart failure with preserved ejection fraction I50.30
--- NOTE | 2024-05-12 13:48 | Hospitalist Progress Note ---
<Statement entered by Yajaira Pelaez MD - 05/12/24 17:39> I have reviewed vital signs, chart notes, labs and imaging. I have personally seen, evaluated and examined the patient. I have also discussed the management of the patient with the LORNA and I agree with the exam findings documented in the history and physical examination and the documented assessment and plan unless otherwise stated below. On my exam today Amrit appears comfortable respirations are nonlabored clear to auscultation except for slight bibasilar crackles, significantly improved compared to yesterday. I can see is EJ at approximately 8 cm however I cannot appreciate jugular venous distention, he has 1+ lower extremity pitting edema that is improved compared to admission. he continues to seem forgetful and avoids history questions he cant answer is not entirely clear but I do not think he has a spud grader currently, we will make referral to [facility] heart failure clinic for follow-up holding diuretics this afternoon, reassess in a.m. possible discharge tomorrow Date of Service May 12, 2024 Assessment & Plan (1) CHF (congestive heart failure): Plan: 69 y/o with HfPEF recently admitted [facility] with syncope and volume depletion, lasix and lisinopril were stopped. Admitted here 05/10 in acute heart failure. Acute on chronic HFpEF - Chronic hypoxic respiratory failure on 4 L nasal cannula at home, currently oxygen level is at his baseline - Decrease diuretic to IV Lasix 40mg once daily, per chart review his home dose is 40mg PO daily. Carbon Dioxide 41 - he is awake and alert, has BETTE noncompliant with CPAP - I/O negative and weight decreased overnight. He reports symptoms improved. - Monitor renal function and electrolytes with diuresis - BUN/creatinine slightly increased, electrolytes acceptable today - Daily weights (cannot stand d/t RLE BKA) and monitor I/O q shift - Salt and fluid restrict - Duonebs QIDR and q2 prn dyspnea/wheezing - Cannot tolerate Jardiance, consider resuming low dose SHERMAN inhibitor - Continue metoprolol succinate 50mg daily - Recommend follow up at [facility] clinic outpatient. - BMP in the AM (2) Pulmonary nodule: Plan: - 9 mm calcified lesion at takeoff YASMEEN bronchus may be partially obstructing, YASMEEN volume loss/opacity - Pulm following - bronchoscopy in 2020 for calcified polyp, biopsy negative for malignancy - Pulm recommends following up with interventional pulmonology and PFTs outpatient - Procal negative, will hold off on antibiotics and monitor for infectious signs and symptoms. (3) Chest pain: Plan: Acute chest heaviness - now resolved. Most likely caused by pulmonary edema, hx of CAD - Detectable HS trop of 24 down trended to 22, which was likely minimal myocardial demand ischemia - Echo completed in December 2023, preserved EF, concentric LVH, elevated RVSP, mild to mod TR, grade I diastolic dysfunction - Already on ASA and Plavix - Statin recently stopped per daughter by PS Nathaly - Continue Metoprolol Succ 50mg daily (4) S/P below knee amputation: Plan: Chronic secondary to PVD/PAD - Continue aspirin and plavix - Recently stopped statin therapy as above - Follows with Dr. Greenberg (5) Chronic respiratory failure: Plan: Mixed respiratory failure with hypoxia and hypercapnia, home oxygen 4 L BETTE and noncompliant with CPAP - Continue supplemental O2 with goal pulse ox 88-92% - Avoid over oxygenation - Will defer VBG at this time since patient is AAOx3, but would consider if neuro status changes (6) Type 2 diabetes mellitus: Plan: - A1c was 8.8 - Hypoglycemic this admission, glipizide stopped and long-acting insulin held. - Short acting insulin to CF 15, CR 5 (7) Pulmonary hypertension: Plan: - Treatment as above (8) COPD (chronic obstructive pulmonary disease): Plan: - No current wheezing - Treatment as above Plan - HTN - continue metoprolol succ as noted above, diuresis and consider resumption of low dose lisinopril - GERD - continue protonix CKD stage II - continue to monitor Cr morbid obesity BMI of 36 VTE ppx - continue enoxaparin Admission and Anticipated Discharge Date Admission Date: May 10, 2024 Estephania Duron is a 69 y/o male who presented to the ER with chest heaviness. He was r ecently hospitalized at [facility] and per his daughter, his lisinopril and furosemide was discontinued. His work up in the ER demonstrated cardiomegaly and PVC on chest radiograph. His Trop was 24.8 and BNP 197. EKG nonacute. CT fo the chest showed a 9 mm calcified endobronchial density at the takeoff of the YASMEEN bronchus, cardiomegaly with mild interstitial and alveolar pulmonary edema, mild to moderate upper abdominal ascites, no evidence of pneumonia. Procalcitonin 10/4 was 0.02. He is being followed by pulmonology - reports that patient did have bronchoscopy on 04/06/2021 that showed sessile mobile polyp R at the takeoff of the YASMEEN and was negative for malignancy - recommended Interventional Pulmonary to look at the patient and PFTs as an outpatient. He is currently being diuresed with 40mg Lasix BID. Patient seen and examined at bedside. He is resting comfortably. He reports increased in his RLE swelling. He denies CP, SOB, and abdominal pain. Reports that he is diuresing well. Reports good appetite. Currently on 4LNC, which he wears at home. He is AAOx3. Cr trending up 0.90-->1.01-->1.17, CO2 41 today. Review of Systems Constitutional: no fever, no chills, no body aches and no fatigue Eyes: no problem reported Respiratory: no cough, no dyspnea and no dyspnea on exertion (Minimal exertion) Cardiovascular: + edema; no chest pain Gastrointestinal: no problem reported Genitourinary: no dysuria or no difficulty urinating Musculoskeletal: no back pain, no neck pain and no joint pain Physical Exam Eyes: PERRL, conjunctivae normal, anicteric sclerae Respiratory: normal respiratory effort and able to speak in complete sentences; no respiratory distress, no labored breathing, no cough and no audible wheezes Auscultation: + diminished lung sounds and + crackles (Mild in Bilateral Lower Lobes) Cardiovascular: Rate/Rhythm: regular rate and regular rhythm Extremities: + edema (+L LLE) Gastrointestinal (Abdomen): Inspection/Auscultation: normal bowel sounds; abdomen not distended Percussion/Palpation: abdomen soft; abdomen nontender Musculoskeletal: Right BKA Neurologic: awake Speech / Cognition: normal speech Motor/Sensory: no tremor Psychiatric: Orientation: alert and oriented x 3 Results & Data Results & Data Vital Signs (Past 12 Hours) Vital Signs Temp Pulse Pulse Resp BP Pulse Ox O2 Del Method 05/12/24 11:45 36.9 C 87 18 112/71 93 Nasal Cannula 05/12/24 08:50 Nasal Cannula 05/12/24 08:46 81 05/12/24 07:52 36.5 C 82 18 132/81 98 Nasal Cannula 05/12/24 06:58 78 18 93 Nasal Cannula 05/12/24 02:51 Nasal Cannula 05/12/24 02:13 36.6 C 79 16 99/62 L 93 Nasal Cannula O2 Flow Rate 05/12/24 11:45 4 05/12/24 08:50 4 05/12/24 08:46 05/12/24 07:52 4 05/12/24 06:58 4 05/12/24 02:51 4 05/12/24 02:13 4 Laboratory Results 05/12/24 05/12/24 05/12/24 Range/Units 12:02 08:00 07:29 Sodium 142 (136-145) mmol/L Potassium 4.2 (3.5-5.1) mmol/L Chloride 98 (98-107) mmol/L Carbon Dioxide 41 H* (21-32) mmol/L Anion Gap 3 (3-11) BUN 30 H (6-23) mg/dl Creatinine 1.17 (0.6-1.4) mg/dl Est Cr Clr Drug Dosing 71.5 ml/min eGFR 67.48 BUN/Creatinine Ratio 25.6 H (10-20) Glucose 57 L (70-99(Fasting)) mg/dl POC Glucose 139 H 73 (70-99) mg/dl Calcium 9.0 (8.6-10.3) mg/dl 05/11/24 05/11/24 Range/Units 20:20 17:24 Sodium (136-145) mmol/L Potassium (3.5-5.1) mmol/L Chloride (98-107) mmol/L Carbon Dioxide (21-32) mmol/L Anion Gap (3-11) BUN (6-23) mg/dl Creatinine (0.6-1.4) mg/dl Est Cr Clr Drug Dosing ml/min eGFR BUN/Creatinine Ratio (10-20) Glucose (70-99(Fasting)) mg/dl POC Glucose 100 H 99 (70-99) mg/dl Calcium (8.6-10.3) mg/dl PG Care Time/CCT Total # of Minutes Spent Total Time Spent with Patient: Total time spent is greater than 50% in coordination of care (as documented) at patient's floor/unit and/or counseling patient: C[place] [address] SUB INP/OBS CARE 2/35MIN Patient Type Established History Expanded Problem Focused Exam Expanded Problem Focused Medical Decision Making Moderate Complexity Diagnoses Chronic diastolic congestive heart failure I50.32 Heart failure chronicity: chronic Heart failure type: diastolic Pulmonary nodule R91.1 Chest pain R07.9 S/P below knee amputation Z89.519 Chronic respiratory failure, unspecified whether with hypoxia or hypercapnia J96.10 Respiratory failure complication: unspecified whether with hypoxia or hypercapnia Type 2 diabetes mellitus with diabetic peripheral angiopathy and gangrene, with long-term current use of insulin E11.52; Z79.4 Diabetes mellitus complication status: with circulatory complication Diabetes mellitus fpc insulin use: with fpc use Pulmonary hypertension I27.20 COPD (chronic obstructive pulmonary disease) J44.9 (1) CHF (congestive heart failure) Heart failure chronicity: chronic Heart failure type: diastolic Qualified Code(s): I50.32 - Chronic diastolic (congestive) heart failure (5) Chronic respiratory failure Respiratory failure complication: unspecified whether with hypoxia or hypercapnia Qualified Code(s): J96.10 - Chronic respiratory failure, unspecified whether with hypoxia or hypercapnia (6) Type 2 diabetes mellitus Diabetes mellitus complication status: with circulatory complication Diabetes mellitus fpc insulin use: with manager long term care use Qualified Code(s): E11.52 - Type 2 diabetes mellitus with diabetic peripheral angiopathy with gangrene; Z79.4 - nursing home (current) use of insulin
[2024-05-13 02:49] VITALS: RESP 18
[2024-05-13 06:23] LABS: BUN Creatinine Ratio 27.2 (10-20); Calcium 8.8 mg/dl (8.6-10.3); Creatinine Clr Calc Pharmacy 72.7 ml/min; Potassium 4.1 mmol/L (3.5-5.1)
[2024-05-13] MEDS: FUROSEMIDE 40 MG/4 ML VIAL IV SCH (08:42)
[2024-05-13 11:21] VITALS: TEMP 97.7; O2SAT 97
[2024-05-13 14:00] VITALS: BP 109/72; PULSE 77
--- NOTE | 2024-05-13 14:05 | Discharge Summary ---
<Statement entered by Yajaira Pelaez MD - 05/13/24 15:09> I have reviewed vital signs, chart notes, labs and imaging. I have also discussed the management of the patient with the [facility] and I agree with the exam findings documented in the history and physical examination and the documented assessment and plan unless otherwise stated below. Discharge Summary Date of Service May 13, 2024 Principal Dx & Hospital Course #1 = Principal Diagnosis (1) CHF (congestive heart failure): 69 y/o with HfPEF recently admitted to [facility] with syncope and volume depletion, lasix and lisinopril were stopped. Admitted here 05/10 in acute heart failure. Acute on chronic HFpEF - Chronic hypoxic respiratory failure on 4 L nasal cannula at home, currently oxygen level is at his baseline. Patient denies SOB. - Regarding his diuretic - per chart review his home dose is 40mg PO daily, will reduce this to 20mg daily (with an increase to 40mg if weight gain >2 lbs in 2 days or edema). - Carbon Dioxide 41 - he is awake and alert, has BETTE noncompliant with CPAP, unchanged from yesterday - I/O negative and weight decreased overnight. He reports symptoms improved. - Monitor renal function and electrolytes with diuresis - BUN/creatinine slight ly increased, electrolytes stable today - Daily weights - Salt and fluid restrict - Duonebs while inpatient. - Cannot tolerate Jardiance, restarting Lisinopril at 5mg and reduced Metoprolol ER to 25mg. - Recommend follow up at HR clinic outpatient - order placed. - Follow up with PCP outpatient. (2) Pulmonary nodule: - 9 mm calcified lesion at takeoff YASMEEN bronchus may be partially obstructing, YASMEEN volume loss/opacity - Pulm following - bronchoscopy in 2020 for calcified polyp, biopsy negative for malignancy - Pulm recommends following up with interventional pulmonology and PFTs outpatient. Order placed for nurse navigator to help setting this up. - Procal negative, never developed infectious signs and symptoms. (3) Chest pain: Acute chest heaviness - now resolved. Most likely caused by pulmonary edema, hx of CAD - Detectable HS trop of 24 down trended to 22, which was likely minimal myocardial demand ischemia - Echo completed in December 2023, preserved EF, concentric LVH, elevated RVSP, mild to mod TR, grade I diastolic dysfunction - Already on ASA and Plavix - Statin recently stopped per daughter by [facility] - Continue Metoprolol Succ but dose decreased to 25mg daily so that he could restart Lisinopril 5mg daily. (4) S/P below knee amputation: Chronic secondary to PVD/PAD - Continue aspirin and plavix - Recently stopped statin therapy as above - Follows with Dr. Greenberg (5) Chronic respiratory failure: Mixed respiratory failure with hypoxia and hypercapnia, home oxygen 4 L BETTE and noncompliant with CPAP - Continue supplemental O2 with goal pulse ox 88-92% - Avoid over oxygenation (6) Type 2 diabetes mellitus: - A1c was 8.8 - Hypoglycemic this admission, glipizide stopped and long-acting insulin held. - Resume outpatient diabetic medications and monitor BS closely. (7) Pulmonary hypertension: - Treatment as above (8) COPD (chronic obstructive pulmonary disease): - No current wheezing - Treatment as above Plan - HTN - continue metoprolol succ as noted above, diuresis and resumption of low dose lisinopril - GERD - continue protonix CKD stage II - continue to monitor Cr morbid obesity BMI of 36 Admission HPI Per Admitting Provider Oliverio is a 69 yo M with a pmhx of PAD s/p BKA of RLE due to occluded artery, as well as HFpEF, DMT2, BETTE, CAD, chronic respiratory failure mixed with hypoxia and hypercapnia, and obesity who presents to the ER today accompanied by his daughter c/o chest heaviness that started today. Reportedly, his daughter feels that he has not been well since his recent hospitalization at [facility]. He had witnessed "seizure-like" activity which was witnessed by his son-in-law approximately and was transferred to [facility]. According to his daughter, he was not started on seizure medications as they felt that the episode was hypotensive induced syncope. His lisinopril and furosemide was discontinued. She notes that he tends to eat a lot of salt-rich foods and has been eating how he normally does. He has had some audible wheezing today and does endorse shortness of breath. Denies cough, fever, or chills. His w/u in the ER demonstrates significant cardiomegaly and PVC on chest radiograph. He was diuresed with IV Lasix 40mg x1. EKG nonacute. His HS trop is detectable at 24.8 and BNP is 197. He has been referred to the hospital medicine team for admission. During his hospital admission, he was kept on 4LNC and diuresed with IV furosemide. He tolerated well and symptoms improved. Today, he denies any CP, SOB, fevers/chills, abdominal pain, n/v,d. He reports improved swelling of his LLE. He is not short of breath at rest or with ambulation. Respiratory crackles are much improved. Patient expresses and interest in going home. We discussed the importance of outpatient follow up with his PCP, interventional pulmonology, and the Heart Failure clinic. Discussed signs/symptoms of fluid retention and the importance of a low sodium/diabetic diet. Admission Exam Per Admitting Provider GENERAL: 69 yo obese elderly M. NAD. EYES: EOMI. PERRLA. Anicteric. HENT: Moist mucous membranes. No scleral icterus. No cervical lymphadenopathy. LUNGS: Nonlabored. Mostly clear with few scattered expiratory wheezes. CARDIOVASCULAR: Regular rate and rhythm. ABDOMEN: Soft, non-tender and non-distended. BS normoactive x 4 quad. EXTREMITIES: S/P BKA of RLE. No edema. Non-tender. Peripheral pulses +2/4. NEUROLOGIC: A&O x3. No focal neurological deficits. CN II-XII grossly intact. PSYCHIATRIC: Cooperative. Appropriate mood and affect. SKIN: Warm, dry, intact. No rashes or lesions. Discharge Exam Eyes PERRL, conjunctivae normal, anicteric sclerae Respiratory normal respiratory effort and able to speak in complete sentences; no respira tory distress, no labored breathing, no cough and no audible wheezes Auscultation: + diminished lung sounds and + crackles (Mild in Bilateral Lower Lobes) Cardiovascular Rate/Rhythm: regular rate and regular rhythm Extremities: + edema (trace pitting LLE) Gastrointestinal (Abdomen) Inspection/Auscultation: normal bowel sounds; abdomen not distended Percussion/Palpation: abdomen soft; abdomen nontender Neurologic awake Speech / Cognition: normal speech Motor/Sensory: no tremor Psychiatric Orientation: alert and oriented x 3 Discharge Plan Discharge Items Patient Disposition: Home - Self-Care Reason For Visit: CHF Discharge Diagnosis: CHF Exaccerbation Activity: Resume your previous activity Non-emergency contact: Primary Care Provider Call non-emergency contact if: you have any medication questions and your symptoms worsen Follow-up/Referrals: Mckenna Fernando PA-C [Primary Care Provider] - Diet: Low Sodium (2gm) Addtl Attending Provider Instructions: Take all medications as prescribed. You were referred to the HF clinic - please follow up with them. You were seen by Pulmonology and they recommended follow up with an Interventional [facility]. Please follow up with them. You were given a handout on Diabetes with your hemoglobin A1C result, please monitor and treat blood sugars. Follow up with your PCP. Please monitor weights daily and follow instructions for diuretic dosing. Call 911 and go to the Emergency Room if: * You have tightness or pain in your chest that does not go away with rest or Nitroglycerin * You are very short of breath even with rest Call your doctor if any of the following symptoms or problems start or get worse: * Shortness of breath or difficulty breathing * Wake up at night short of breath * Chest pain * Cough * Swelling of your hands, fee, or legs * More fatigued or tired with your normal activity * Palpitations - sudden fast heart beats WEIGHT * Weigh yourself every morning after using the bathroom. * Use the same scale. * Wear the same amount of clothing. * Write your weight down on your chart. * Call your doctor if you gain more than 2-3 pounds in 1-2 days. MEDICATIONS * Use this discharge instruction sheet for instructions. * Take your medications at the time your doctor ordered. * Do not skip a dose of your medicines. * If you miss a dose of medicine, take as soon as possible, but DO NOT DOUBLE A DOSE. * Read your medicine information when you get home. * Know all of the side effects of your medicine. * Call your doctor's office if you have any side effects. * Be sure all of your doctors know what medicine and herbs you take (including cold, flu, and herbal medicine). * Pain Medicine: If you do not get relief from your pain, please call your doctor for help. Take the following with you to your follow-up doctor appointments: * Weight Chart * Medication List * List of questions Do not drink excessive alcohol, beer or wine. Pending Studies at Discharge: No Stand-Alone Forms: My [employer], Smoking Cessation Medications and DC Order Prescriptions: New metoprolol succinate 25 mg tablet extended release 24 hr 25 mg PO DAILY Qty: 30 0RF lisinopril 5 mg tablet 5 mg PO DAILY Qty: 30 0RF furosemide 20 mg tablet 20 mg PO DAILY Qty: 30 0RF Rx Instructions: Take 1 tab daily - if increase in weight (>2 lbs over 2 days) or edema, take 40mg once daily Continued aspirin 81 mg Tablet,Delayed Release (Dr/Ec) 81 mg PO QAM Levemir FlexTouch U100 Insulin 100 unit/mL (3 mL) insulin pen 50 unit SUBCUT BID Patient Comments: took 30 units metformin 1,000 mg tablet 1,000 mg PO BID clopidogrel 75 mg tablet 75 mg PO QAM nortriptyline 25 mg Capsule 0 mg PO HS Rx Instructions: Family unsure of this medication, original directions: 25mg by mouth at bedtime pantoprazole [Protonix] 40 mg Tablet,Delayed Release (Dr/Ec) 40 mg PO QAM glipizide 5 mg tablet 5 mg PO BID Rx Instructions: just picked up november 27 Discontinued metoprolol succinate 50 mg tablet extended release 24 hr 50 mg PO QAM Discharge Orders: Discharge Order (Routine); Ordered 05/13/24 Ordered By: Sandy Gutierrez Discharge Order- CHF (Routine); Ordered 05/13/24 Ordered By: Sandy Lorenzo/Other Patient Handouts: Heart Failure: Tracking Your Weight, Heart Failure: Know Your Baselines, Heart Failure Care, Heart Failure Admission Data Admit Date/Time: 05/10/24 17:49 Attending Provider: Yajaira Pelaez Admit Provider: Merrick Porter Primary Care Provider: Mckenna Fernando Other Providers: Zheng Molina; Tangela Westbrook Other Interventions: Discharge Summary Assessment (RN) Last Done: 05/13/24 13:59 Hospital Stay Data Consultations 05/11/24 08:28 Consult Pulmonology Routine 05/13/24 13:22 [facility] CHF Program Referral Routine 05/13/24 13:25 Consult [facility] political aide Routine Diagnostic Imagining Performed 05/10/24 17:54 CT chest diagnostic wo con Routine Pending Results Patient Have Any Pending Studies at Discharge: No Discharge Instructions Given to Patient (Per Discharging Provider) Take all medications as prescribed. You were referred to the HF clinic - please follow up with them. You were seen by Pulmonology and they recommended follow up with an Inter[facility]. Please follow up with them. You were given a handout on Diabetes with your hemoglobin A1C result, please monitor and treat blood sugars. Follow up with your PCP. Please monitor weights daily and follow instructions for diuretic dosing. Call 911 and go to the Emergency Room if: * You have tightness or pain in your chest that does not go away with rest or Nitroglycerin * You are very short of breath even with rest Call your doctor if any of the following symptoms or problems start or get worse: * Shortness of breath or difficulty breathing * Wake up at night short of breath * Chest pain * Cough * Swelling of your hands, fee, or legs * More fatigued or tired with your normal activity * Palpitations - sudden fast heart beats WEIGHT * Weigh yourself every morning after using the bathroom. * Use the same scale. * Wear the same amount of clothing. * Write your weight down on your chart. * Call your doctor if you gain more than 2-3 pounds in 1-2 days. MEDICATIONS * Use this discharge instruction sheet for instructions. * Take your medications at the time your doctor ordered. * Do not skip a dose of your medicines. * If you miss a dose of medicine, take as soon as possible, but DO NOT DOUBLE A DOSE. * Read your medicine information when you get home. * Know all of the side effects of your medicine. * Call your doctor's office if you have any side effects. * Be sure all of your doctors know what medicine and herbs you take (including cold, flu, and herbal medicine). * Pain Medicine: If you do not get relief from your pain, please call your doctor for help. Take the following with you to your follow-up doctor appointments: * Weight Chart * Medication List * List of questions Do not drink excessive alcohol, beer or wine. Total Time Total Time Spent Total Time Spent (In Minutes): 30 Coding [place] [address] IN/OBS DISCH 30 MIN/LESS Patient Type Established History Expanded Problem Focused Exam Expanded Problem Focused Diagnoses Chronic diastolic congestive heart failure I50.32 Heart failure type: diastolic Heart failure chronicity: chronic Pulmonary nodule R91.1 Chest pain R07.9 S/P below knee amputation Z89.519 Chronic respiratory failure, unspecified whether with hypoxia or hypercapnia J96.10 Respiratory failure complication: unspecified whether with hypoxia or hypercapnia Type 2 diabetes mellitus with diabetic peripheral angiopathy and gangrene, with long-term current use of insulin E11.52; Z79.4 Diabetes mellitus account executive insulin use: with account executive use Diabetes mellitus complication status: with circulatory complication Pulmonary hypertension I27.20 COPD (chronic obstructive pulmonary disease) J44.9
== END 2024-05-13 15:43 | disposition home or self-care (01) | DRG 291 ==
LOC: ED 12:49 → SUATTDRO 17:49 → 2N 17:49

== ENCOUNTER 2024-08-06 23:07 | Inpatient (IN) ==
--- OUTSIDE RECORDS SUMMARY | 2024-08-07 00:03 | External Medical Summary | Continuity of Care Document ---
Author Name Unknown Organization [facility] Address [address], [place] [id number] Care Team Providers Care Lining Cutter Name Role Phone MeganshirleneKayla messina Primary Care Physician [phone] [id number] Date(s): 08/03/24 - 08/03/24 [facility] [address], [address] [place] [address] [phone] Encounter Diagnosis Acute right-sided CHF (congestive heart failure)(Discharge Diagnosis) - 08/03/24 Pulmonary hypertension(Discharge Diagnosis) - 08/03/24 Acute right heart failure(Final) - Pulmonary hypertension, unspecified(Final) - Sleep apnea, unspecified(Final) - Hypoxemia(Final) - Complete traumatic amputation of unspecified lower leg, level unspecified, initial encounter(Final) - Hypoxia(Discharge Diagnosis) - 08/03/24 Amputation of lR leg; below knee(Discharge Diagnosis) - 08/03/24 BETTE (obstructive sleep apnea)(Discharge Diagnosis) - 08/03/24 Coronary artery disease(Discharge Diagnosis) - 08/03/24 Discharge Disposition: Home or Self Care Attending Physician: DO Bravo Michelle L Referring Physician: DO Bravo Michelle L Allergies, Adverse Reactions, Alerts Substance Criticality Severity Reaction Reaction Severity Status Jardiance dizziness, nausea Ac tive Assessment and Plan Extracted from: Title:Cardiology Office Visit Note Author:DO Bravo Michelle L Date:08/03/24 1.Acute right-sided CHF (c ongestive heart failure) Acute on chronic 2.Pulmonary hypertension Moderately severe with elevated PVRby right heart cath 2019;severe pulmonary hypertension 64 mmHg by last echoSeptember 2023 3.Hypoxia On chronicnasal cannula oxygen up to 5 Lcontinuous 4.BETTE (obstructive sleep apnea) Previously intolerant to CPAP 5.Amputation of lR leg; below knee 6.Coronary artery disease Mild to moderate by cath 2019 He isto havestat blood work today to recheck his renal functionand another BNP. I am going to increase his Furoscix to3 days weekly and on the days he is taking the for Furoscix he should not take hisp.o. furosemide. The son-in-law and the patient were both informed that he needs to have weekly blood work with the change in the Furoscix. Depending on those results further recommendations will follow. I would like to attempt to put him on Entresto but have to make sure his renal function is stable first. His blood pressure is borderline low and I am not sure he is going to tolerate it. A low blood pressure with right-sided heart failureis never agood prognostic sign. I amrecommending that we refer him [facility] sleep specialist at [place] for further advanced treatment ofhis sleep apnea and hypoxia. I suspect that this is the main cause of hisright-sided congestive heart failure along with the pulmonary hypertension. Him not sure that he would benefitfor evaluationby pulmonary hypertension specialist at [facility] or the advanced heart failure team. He is not a very compliant patientand I am not sure he would benefitby this advanced care or not. If he is unwilling or unable to follow the above instructionsI would considerevaluation in the form ofpossible hospice treatment. Will follow-up with him in the office in 1 month. I asked his [id number] attempt daily weights if possibleor at least keep track of his urine outputusing the urinal they have at hometo help us with his heart failure. He is also to be fluid restricted at48 ounces per day of fluids Thank you for allowing me to participate in the care of this very nice patient. I look forward to participating in their care with you. I will follow up after remaining tests are complete. Shaniqua Bravo DO [facility] [employer] Integratordirector biology Heart and Vascular [facility] Medications aspirin 81 mg oral tablet, chewable Start: 06/24/20 1:08:00 PM EST, 1 tab, PO, Daily, Disp# 90 tab, Refills: 3, Pharmacy: [facility]/pharmacy #[id number] Start Date: 06/24/20 Status: Ordered atorvastatin 20 mg oral tablet Start: 07/03/24 11:11:00 AM EST, 1 tab, PO, Daily Start Date: 07/03/24 Status: Ordered Bactrim DS 800 mg-160 mg oral tablet Start: 06/20/24 10:57:00 AM EST, trimethoprim 1 tab, PO, bid, Disp# 14 tab, Pharmacy: [facility] [id number] Start Date: 06/20/24 Stop Date: 06/27/24 Status: Ordered BD needle Ultra-Fine Pen 29G x 0.5" Start: 11/02/22 1:45:00 PM EDT, See Instructions, Disp# 100 each, Refills: 5, Use as directed with insulin. Max ____/day. Use new pen needle with each injection., Pharmacy: [facility] #[id number] Start Date: 11/02/22 Status: Ordered BD needle Ultra-Fine Pen Etta 32G x 4mm Start: 12/11/21 9:41:00 AM EDT, See Instructions, Disp# 100 each, Refills: 3, To be used with insulininjections twice daily., Note to Pharmacy: ICD-10: E11.42, [id number] Start Date: 12/11/21 Status: Ordered cilostazol 100 mg oral tablet Start: 07/25/24 11:56:00 AM EST, 1 tab, PO, bid, Disp# 180 tab, Refills: 3, Pharmacy: [facility] 1607 Start Date: 07/25/24 Status: Ordered clopidogrel 75 mg oral tablet Start: 03/29/24 7:19:00 AM EDT, 1 tab, PO, Daily, Disp# 90 tab, Refills: 3, Pharmacy: [facility] 1607 Start Date: 03/29/24 Status: Ordered Furoscix Start: 08/03/24 2:08:00 PM EST Start Date: 08/03/24 Status: Ordered furosemide 40 mg oral tablet Start: 05/17/24 9:15:00 AM EDT, 1 tab, PO, Daily, Disp# 90 tab, Refills: 3, IF WEIGHT INCREASES OVERNIGHT 2-3 POUNDS OR 4-5 POUNDS PER WEEK, TAKE 1 EXTRA TABLET, Pharmacy: [facility] [id number] Start Date: 05/17/24 Status: Ordered glipiZIDE 5 mg oral tablet Start: 12/26/23 7:14:00 AM EDT, 1 tab, PO, bid, Disp# 60 tab, Refills: 11, Pharmacy: [id number] Start Date: 12/26/23 Status: Ordered Lantus Solostar Pen 100 units/mL subcutaneous solution Start: 05/18/24 8:39:00 AM EDT, 50 unit =, subQ, bid, Disp# 10 mL, Refills: 11, Note to Pharmacy: SRIRAM, Pharmacy: [id number] Start Date: 05/18/24 Stop Date: 05/13/25 Status: Ordered lisinopril 30 mg oral tablet Start: 06/08/24 8:02:00 AM EDT, 1 tab, PO, Daily, Disp# 90 tab, Refills: 3, Pharmacy: [facility] 160 Start Date: 06/08/24 Status: Ordered metFORMIN 1000 mg oral tablet Start: 01/23/24 9:41:00 AM EDT, 1 tab, PO, bid, Disp# 180 tab, Refills: 3, Pharmacy: [facility] 1607 Start Date: 01/23/24 Status: Ordered metoprolol succinate 50 mg oral tablet, extended release Start: 06/19/24 5:23:00 PM EST, 1 tab, PO, Daily Start Date: 06/19/24 Status: Ordered nortriptyline 25 mg oral capsule Start: 06/08/24 8:02:00 AM EDT, 1 cap, PO, qhs, Disp# 90 cap, Refills: 3, Pharmacy: [facility] Start Date: 06/08/24 Status: Ordered omeprazole 40 mg oral delayed release capsule Start: 06/19/24 5:23:00 PM EST, 1 cap, PO, Daily Start Date: 06/19/24 Status: Ordered One Touch Delica (33G) Lancets Start: 08/07/18 9:27:22 AM EST, See Instructions, Disp# 300 unit, Refills: 3, Test blood sugar before meals and at bedtime, Pharmacy: [facility]/pharmacy #[id number] Start Date: 08/07/18 Status: Ordered One Touch Delica Plus (30G) Lancets Start: 12/11/21 9:41:00 AM EDT, See Instructions, Disp# 300 each, Refills: 3, Use to test blood sugarTID. Dx Code E11.42, Pharmacy: [facility]/pharmacy #[id number] Start Date: 12/11/21 Status: Ordered One Touch Verio Glucose Monitor Start: 10/05/17 11:22:00 AM EST, See Instructions, Disp# 1 each, Test blood sugar before meals and at bedtime, Pharmacy: [facility] Start Date: 10/05/17 Status: Ordered One Touch Verio Test Strips Start: 12/11/21 9:41:00 AM EDT, See Instructions, Disp# 300 each, Refills: 3, Use to test blood sugarthree times daily, Note to Pharmacy: ICD-10: E11.42, Pharmacy: [facility]/pharmacy #[id number] Start Date: 12/11/21 Status: Ordered rosuvastatin 10 mg oral tablet Start: 07/25/24 11:56:00 AM EST, 1 tab, PO, Daily, Disp# 90 tab, Refills: 3, Pharmacy: [id number] Start Date: 07/25/24 Status: Ordered Mental Status 08/03/24 Barriers to Learning one year None evide nt Mandatory Health Literacy Documentation Yes Health Literacy Communication Barriers N ever Primary Language Djiboutian Problem List Condition Confirmation Course Effective Dates [...] exacerbation Confirmed Active Nonocclusive coronary atherosclerosis of southern ute coronary artery Confirmed Active Diabetes Confirmed Active Diabetic peripheral neuropathy associated with type 2 diabetes mellitus Confirmed Active S/P BKA (below knee amputation) unilateral Confirmed Active Hyperlipidemia Confirmed Active HTN (hypertension) Confirmed Active Atherosclerosis of southern ute arteries of extremities with intermittent claudication, bilateral [...] and vertebrobasilar stenosis, 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 comb winder Confirmed Active Diagnosis Diagnosis Type Effective Dates Health Status Clinical Service Informant Coronary artery disease Discharge Diagnosis 08/03/24 Non-Specified Acute right-sided CHF (congestive heart failure) Discharge Diagnosis 08/03/24 Non-Specified Hypoxia Discharge Diagnosis 08/03/24 Non-Specified Pulmonary hypertension Discharge Diagnosis 08/03/24 Non-Specified Amputation of lR leg; below knee Discharge Diagnosis 08/03/24 Non-Specified BETTE (obstructive sleep apnea) Discharge Diagnosis 08/03/24 Non-Specified Procedures Procedure Date Related Diagnosis Body [...] Com pleted Cardiac catheterization 10/03/17 C om[address] [place] [address] [facility] Impression: 1. Cardiomegaly without radiographic evidence of congestive failure 2. Right basiar opacities are similar to previous and likely represent scarring/atelectasis. Correlate clinically for evidence of a superimposed pneumonitis [facility] Impression: 1. No pulmonary emboli identified 2. Subsegmental bilateral atelectasis 3. No lymphadenopathy [address] [place] [address] Impression: 1. No acute abnormality. incidental note is made of diverticulosis without diverticulitis [facility] Right 5th toe [facility] Impression: 1. No evidence of osteomyelitis or abscess [facility] Impression: 1. No focal cortical erosion/osteolysis or agressive periosteal reaction identified to suggest osteomyelitis. No fracture or bone lesion. Scattered [id number] osteoarthritis. Plantar calcaneal spur. Achilles enthesophytes Results Laboratory List Name Date Basic Metabolic Panel (BASIC METAB PANEL ) 08/03/24 Complete Blood Count w Differential (CBC ,DIFFH) 08/03/24 NT-Pro BNP 08/03/24 Most recent to oldest [Reference Range]: 1 eGFR CKD-EPI [>60 mL/min/1.73 m2] 53 mL/ min/1.73 m2 *LOW* (08/03/24 3:12 PM) Hypochromia SLIGHT *Unknown* (08/03/24 3:12 PM) Ovalocytes FEW *Unknown* (08/03/24 3:12 PM) Platelet Morphology NORMAL *Unknown* (08/03/24 3:12 PM) BNP, NT-Pro [<125 pg/mL] 2729 pg/mL *HI* (08/03/24 3:12 PM) Estimated CrCl 61.15 mL/min (08/03/24 10:11 PM) MPV [9.0-12.2 fL] 11.6 fL (08/03/24 3:12 PM) Immature Gran% 0.0 % (08/03/24 3:12 PM) Neut% 75.7 % (08/03/24 3:12 PM) Lymph% 9.9 % (08/03/24 3:12 PM) Frontier% 7.2 % (08/03/24 3:12 PM) Baso% 0.9 % (08/03/24 3:12 PM) Eos% 6.3 % (08/03/24 3:12 PM) Immat Gran, Abs [0.0-0.4 K/uL] 0.00 K/uL (08/03/24 3:12 PM) Neut, Abs [2.0-7.7 K/uL] 7.93 K/uL *HI* (08/03/24 3:12 PM) Lymph, Abs [1.0-3.4 K/uL] 1.04 K/uL (08/03/24 3:12 PM) Frontier, Abs [0-1.0 K/uL] 0.75 K/uL (08/03/24 3:12 PM) Baso, Abs [0-0.1 K/uL] 0.09 K/uL (08/03/24 3:12 PM) Eos, Abs [0-0.5 K/uL] 0.66 K/uL *HI* (08/03/24 3:12 PM) Type of Diff: MANUAL *Unknown* (08/03/24 3:12 PM) RDW [11.5-14.2 %] 18.9 % *HI* (08/03/24 3:12 PM) Anion Gap [5-14 mmol/L] 10 mmol/L (08/03/24 3:12 PM) BUN [6-23 mg/dL] 52 mg/dL *HI* (08/03/24 3:12 PM) Ca [8.4-10.2 mg/dL] 9.9 mg/dL (08/03/24 3:12 PM) Cl- [98-107 mmol/L] 96 mmol/L *LOW* (08/03/24 3:12 PM) HCO3 [22-29 mmol/L] 34 mmol/L *HI* (08/03/24 3:12 PM) Cret [0.70-1.30 mg/dL] 1.43 mg/dL *HI* (08/03/24 3:12 PM) Glu [74-109 mg/dL] 88 mg/dL 1 (08/03/24 3:12 PM) Hct [39-48 %] 37.5 % *LOW* (08/03/24 3:12 PM) Hgb [13.0-17.0 g/dL] 10.1 g/dL *LOW* (08/03/24 3:12 PM) K [3.5-5.1 mmol/L] 5.3 mmol/L *HI* (08/03/24 3:12 PM) MCH [28-33 pg] 23.2 pg *LOW* (08/03/24 3:12 PM) MCHC [32-36 g/dL] 26.9 g/dL *LOW* (08/03/24 3:12 PM) MCV [81-96 fL] 86.0 fL (08/03/24 3:12 PM) Na [136-145 mmol/L] 140 mmol/L (08/03/24 3:12 PM) Plts [150-350 K/uL] 257 K/uL (08/03/24 3:12 PM) RBC [4.40-5.60 M/uL] 4.36 M/uL *LOW* (08/03/24 3:12 PM) WBC [4.0-10.4 K/uL] 10.47 K/uL *HI* (08/03/24 3:12 PM) 1Result Comment: ADA recommendation for FASTING Serum/Plasma Glucose: Normal: 70-100 mg/dL Prediabetes: 100-125 mg/dL Diabetes: 126 mg/dL or higher Vital Signs Most recent to oldest [Reference Range]: 1 Patient Weight 119.1 kg (08/03/24 2:15 PM) Heart Rate 81 bpm (08/03/24 2:15 PM) Blood Pressure 106/62mmHg (08/03/24 2:15 PM) Cuff Pulse Pressure 44 mmHg (08/03/24 2:15 PM) Social History Social History Type Response Tobacco Former smoker, Cigar ettes Smoking Status Former Smoker, quit > 1 yr Sex Male Sex Representation Male (finding) Cardiology Outpatient Note * DO Bravo Michelle L: PERFORM Event Display: Cardiology Outpt Note Authored Date: Primary Care Provider LORENA Fernando, Kayla Mckay Referring Provider DO Bravo Michelle L Chief Complaint pt states slight decrease in swelling to leg, otherwise no change in sob. PT going to house. Pt did not get lab work done. Occasional dizziness. History of Present Illness Oliverio Saeed is a 69 year old male with PMH significant for diastolic andright sided HF withpreserved LVEF 60-65%, nonocclusive CAD s/p right heart cath on 04/30/2020 (PA diastolic 32, 50% lesion in RCA), HTN, HLD, DMand BETTE. He had a sleep study in 2018--Unfortunately, he did not tolerate CPAP. He has been on O2 3L and recently up to 5L continuously. I am seeing him today in CV followup-last month-due to significant shortness of breath and fluid retentionat theas well asabdominaldistentionwe gave him a dose of IV Bumex in the office and got him set upto takeSQFuroscix. He was instructed to have weekly blood workdone for me which he did not do. His weight today ( and I am not sure that I completely believe this) is up by over 30 pounds compared to lastvisit. HisrightBKA stump is swollen to the point where he cannot get his prosthesis onand hereports his abdominal girth is increased. He is unable to standon a scale to do daily weights at home. He does not keep track of his urine output.We attempted to do nocturnalovernight pulse ox on him on 2 separate occasions and apparentlyhe could not keepthe pulse oxon his finger to be able to get good readings so I have no data. I reviewed with his son-in-law who was here with him todaythe essential nature oftreatingsleep apneaand his hypoxiathat this may be a major driving force behind his right sided heart failure and his significant fluid retention. In review of his prior history:He was in the hospital back in December 2023 with sepsis related to an infected right leg-he underwent BKA with Dr. Greenberg. Hewas in the hospital for about 2 weeks. Then in April he was observed to have a ?seizure-was [facility] to [facility] and seen by neurology.Apparently his CT/MRI was negative. He feels SOB all the time. He can hardly do any ADLs due to his breathing but also now due to theBKA. After his dc from [facility] in April 2024meds were cut back including his BB and diuretic.In early Mayame in to [facility] with CHF. His 2019 cath from [facility] was reviewed in detail.The findings were as follows: Left Main: The left main coronary artery arises from the left sinus of Valsalva, is a large calibervessel and mildly diseased. It gives rise to the LAD, Circumflex, and Ramus. LAD: The left anterior descending coronary artery arises from the left main. It terminates at the apex. The Proximal LAD is large in size and mildly diseased. The Mid LAD is medium in size and mildlydiseased. The Distal LAD is medium in size and mildly diseased. The 1st Diagonal is medium in size and mildly diseased. The 2nd Diagonal is small in size. Circumflex: The circumflex coronary artery arises from the left main. The Proximal Circumflex is large in size and mildly diseased. The Mid Circumflex is medium in size and mildly diseased. The Distal Circumflex is medium in size and mildly diseased. The 1st Marginal is medium in size and mildly diseased. The 2nd Marginal is small in size. RCA: The Proximal RCA is large in size and mildly diseased. The Mid RCA is large in size and mildlydiseased. The Distal RCA is medium in size and diffusely diseased. There is a 50% lesion in the Distal RCA. The Right PDA is medium in size and mildly diseased. The RPAV is medium in size and mildly diseased. The 1st RPL is small in size. The 2nd RPL is small in size. The 3rd RPL is medium in size and mildly diseased. Ramus: The Ramus is medium in size and moderately diseased. There is a 40% lesion in the Ramus. IMPRESSIONS: * Non-occlusive coronary artery disease (dRCA: 50%), unchanged from prior coronary angiogram in 2018. * Resting hemodynamics notable for moderately elevated right (mRAP 11mmHg) heart filling pressures and normal left (PCWP 14mmHg) heart filling pressures. Moderately elevated mean pulmonary arterialpressure (mPAP 37mmHg) with severely elevated pulmonary vascular resistance (PVR 5.8 CROFT). Cardiac index by Patricia equation using assumed VO2 was depressed (CI 1.8 L/min/m2). * Pulmonary vasodilator testing with inhaled nitric oxide up-titrated to 20ppm was performed. Mean pulmonary arterial pressure remained moderately elevated (mPAP 35 mmHg) with severely elevated pulmonary vascular resistance (PVR 5.4 CROFT), left heart filling pressure became mildly elevated (PCWP 16 mmHg), and cardiac index remained depressed (CI 1.6 L/min/m2) - indicative of a negative response to nitric oxide. * No evidence of intra-cardiac shunt on oximetry run.* Uncomplicated right antecubital venous (5 Fr) and right radial arterial (6 Fr) access. His recent echo done at [facility] [id number] also reviewed. His LV function is normal, with LVH and diastolic dysfunction. His RV is dilated and PA pressures are severely elevated at 64mmHg. Review of Systems General: no fevers, chills, weight loss of gain HEENT: no changes in vision or hearing; no recent falls or head trauma Cardiac: No other symptoms other than reported in HPI Pulmonary: No symptoms other than reported in HPI Abdomen: No changes in bowel habits, nausea, vomiting, no BRBPR : no changes in urine frequency Extremities: no edema or claudication Physical Exam Vitals & Measurements HR:81(Monitored) BP:106/62 SpO2:92% WT:119.1kg WT:119.100kg(Dosing) Patient is awake alert and oriented x3 and in no acute distresson oxygen5 L nasal cannula HEENT: 2+ carotid upstrokes, no evidence of carotid bruits LUNGS: Clear to auscultation bilaterally no rales rhonchi or wheezing HEART: Regular rate and rhythm no appreciable murmurs rubs or gallops ABDOMEN: Soft nontender markedly distended and tense EXTREMITIES: RightBKA;trace edema above his stump+1 edema on the left PSYCHIATRIC: Patient frustrated Assessment/Plan 1.Acute right-sided CHF (congestive heart failure) Acute on chronic 2.Pulmonary hypertension Moderately severe with elevated PVRby right heart cath 2019;severe pulmonary hypertension 64 mmHg by last echoSeptember 2023 3.Hypoxia On chronicnasal cannula oxygen up to 5 Lcontinuous 4.BETTE (obstructive sleep apnea) Previously intolerant to CPAP 5.Amputation of lR leg; below knee 6.Coronary artery disease Mild to moderate by cath 2019 He isto havestat blood work today to recheck his renal functionand another BNP. I am going to increase his Furoscix to3 days weekly and on the days he is taking the for Furoscix he should not take hisp.o. furosemide. The son-in-law and the patient were both informed that he needs to have weekly blood work with the change in the Furoscix. Depending on those results further recommendations will follow. I would like to attempt to put him on Entresto but have to make sure his renal function is stable first. His blood pressure is borderline low and I am not sure he is going to tolerate it. A low blood pressure with right-sided heart failureis never agood prognostic sign. I amrecommending that we refer him [facility] sleep specialist at [place] for further advanced treatment ofhis sleep apnea and hypoxia. I suspect that this is the main cause of hisright-sidedcongestive heart failure along with the pulmonary hypertension. Him not sure that he would benefitfor evaluationby pulmonary hypertension specialist at [facility] or the advanced heart failure team. He is not a very compliant patientand I am not sure he would benefitby this advanced care or not. If he is unwilling or unable to follow the above instructionsI would considerevaluationin the form ofpossible hospice treatment. Will follow-up with him in the office in 1 month. I asked his ctn-lq-blhmw attempt daily weights if possibleor at least keep track of his urine outputusing the urinal they have at hometo help us with his heart failure. He is also to be fluid restricted at48 ounces per day of fluids Thank you for allowing me to participate in the care of this very nice patient. I look forward toparticipating in their care with you. I will follow up after remaining tests are complete. Shaniqua Bravo DO [facility] [employer] Integratordirector biology Heart and Vascular [facility] Attestation I, Shaniqua Bravo DO [facility] have spent 60 minutes performing the activities necessary in the patients visit. This time does not include separately reported service. Activities include the following: _x_ review of the medical record x__ obtaining a history _x_ physical exam/evaluation _x_counseling/educating patient/family/caregiver _x_ discussion/referral to other healthcare professionals _x_ documenting care in the medical record _x_ independent interpretation of results (echo and labs as well as cardiac cath) _x_ communication of results to patient/family/caregiver __ coordination of care Problem List/Past Medical History Ongoing Amputation of fifth toe of right foot Amputation of lR leg; below knee Atherosclerosis of southern ute arteries of extremities with intermittent claudication, bilateral legs Below knee amputation Benign hypertension with coincident congestive heart failure 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, 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 with fetalorigin comb winder Chronic diastolic (congestive) heart failure Chronic respiratory failure with hypoxia, on home oxygen therapy COPD without exacerbation Diabetes Diabetic peripheral neuropathy associated with type 2 diabetes mellitus HTN (hypertension) Hyperlipidemia Nonocclusive coronary atherosclerosis of southern ute coronary artery BETTE (obstructive sleep apnea) PAD (peripheral artery disease) Peripheral arterial disease with history of revascularization [...] Date: 11/05/2022ardiac catheterization| Service Date: 10/03/2017 Medications aspirin(aspirin 81 mg oral tablet, chewable), 81 mg= 1 tab, PO, Daily, 3 refills atorvastatin(atorvastatin 20 mg oral tablet), 20 mg= 1 tab, PO, Daily cilostazol(cilostazol 100 mg oral tablet), 1 tab, PO, bid clopidogrel(clopidogrel 75 mg oral tablet), 1 tab, PO, Daily diabetes supplies(One Touch Delica Plus (30G) Lancets), See Instructions, 3 refills diabetes supplies(One Touch Verio Test Strips), See Instructions, 3 refills diabetic supplies(One Touch Delica (33G) Lancets), See Instructions, 3 refills diabetic supplies(One Touch Verio Glucose Monitor), See Instructions furosemide(Furoscix) furosemide(furosemide 40 mg oral tablet), 1 tab, PO, Daily, 3 refills glipiZIDE(glipiZIDE 5 mg oral tablet), 1 tab, PO, bid insulin glargine(Lantus Solostar Pen 100 units/mL subcutaneous solution), 50 unit, subQ, bid, 11 refills lisinopril(lisinopril 30 mg oral tablet), 1 tab, PO, Daily, 3 refills metFORMIN(metFORMIN 1000 mg oral tablet), 1 tab, PO, bid metoprolol(metoprolol succinate 50 mg oral tablet, extended release), 50 mg= 1 tab, PO, Daily nortriptyline(nortriptyline 25 mg oral capsule), 1 cap, PO, qhs, 3 refills omeprazole(omeprazole 40 mg oral delayed release capsule), 40 mg= 1 cap, PO, Daily rosuvastatin(rosuvastatin 10 mg oral tablet), 1 tab, PO, Daily sulfamethoxazole-trimethoprim(Bactrim DS 800 mg-160 mg oral tablet), 1 tab, PO, bid syringe needles(BD needle Ultra-Fine Pen Etta 32G x 4mm), See Instructions, 3 refills syringe needles(BD needle Ultra-Fine Pen 29G x 0.5"), See Instructions, 5 refills Allergies Jardiancedizziness, nausea Social History Smoking Status Former Smoker, quit > 1 yr Alcohol Use:Current Type:Beer Frequency:1-2 times per month 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 Hypertension: Mother. Leukemia: Father. Stroke: Mother. Type II diabetes mellitus: Father. Health Status Family Member(s) Lab Results Test Name Test Result Date/Time Na 140 mmol/L 07/03/2024 13:00 EST K 4.7 mmol/L 07/03/2024 13:00 EST Cl- 94 mmol/L 07/03/2024 13:00 EST HCO3 39 mmol/L 07/03/2024 13:00 EST Anion Gap 7 mmol/L 07/03/2024 13:00 EST BUN 23 mg/dL 07/03/2024 13:00 EST Cret 0.92 mg/dL 07/03/2024 13:00 EST eGFR CKD-EPI >90 mL/min/1.73 m2 07/03/2024 13:00 EST Glu 113 mg/dL 07/03/2024 13:00 EST Ca 9.3 mg/dL 07/03/2024 13:00 EST WBC 9.42 K/uL 07/03/2024 13:00 EST Hgb 10.3 g/dL 07/03/2024 13:00 EST Hct 38.2 % 07/03/2024 13:00 EST RBC 4.46 M/uL 07/03/2024 13:00 EST MCV 85.7 fL 07/03/2024 13:00 EST MCHC 27.0 g/dL 07/03/2024 13:00 EST MCH 23.1 pg 07/03/2024 13:00 EST RDW 18.6 % 07/03/2024 13:00 EST Plts 246 K/uL 07/03/2024 13:00 EST Platelet Morphology NORMAL 07/03/2024 13:00 EST MPV 12.1 fL 07/03/2024 13:00 EST Type of Diff: MANUAL 07/03/2024 13:00 EST Immature Gran% 0.0 % 07/03/2024 13:00 EST Neut% 70.0 % 07/03/2024 13:00 EST Lymph% 10.9 % 07/03/2024 13:00 EST Frontier% 10.0 % 07/03/2024 13:00 EST Baso% 4.5 % 07/03/2024 13:00 EST Eos% 4.6 % 07/03/2024 13:00 EST Immat Gran, Abs 0.00 K/uL 07/03/2024 13:00 EST Neut, Abs 6.59 K/uL 07/03/2024 13:00 EST Lymph, Abs 1.03 K/uL 07/03/2024 13:00 EST Frontier, Abs 0.94 K/uL 07/03/2024 13:00 EST Baso, Abs 0.42 K/uL 07/03/2024 13:00 EST Eos, Abs 0.43 K/uL 07/03/2024 13:00 EST Schistocytes FEW 07/03/2024 13:00 EST Teardrop Cells FEW 07/03/2024 13:00 EST Hypochromia SLIGHT 07/03/2024 13:00 EST BNP, NT-Pro 1295 pg/mL 07/03/2024 13:00 EST Electronic Signature on File Electronically Reviewed/Signed by: Shaniqua Bravo DO Author Signature Dt/Tm:08/03/2024 03:31 PM Division of General Cardiology MLS Patient Care team information Care Team Personnel Name: AUDREY Enrique Terra L Position: Nurse Pract - Vascular Surg Member Role: Lifetime Relationship Address: [address] [place] [address] [place] [address] [place] Name: Prasanna Wilson Catherine Position: Pharmacist Member Role: Pharmacy - Lifetime Address: [facility] [address] [place] [address] [place] Name: LORENA Gaston Bridget M Position: Physician Steam Pan Sponger - Vascular Surg Member Role: Lifetime Relationship Address: [address] [place] [address] [place] Name: LORENA Horan Lynn Position: Physician Steam Pan Sponger Exempt - Vasc Surg Member Role: Lifetime Relationship Address: [address] [place] [address] [place] Name: Prasanna Denny Paula Position: Pharmacist Member Role: Pharmacy - Lifetime Address: [facility] [address] [place] [address] [place] Name: LORENA Fernando Jessica A Position: Physician Asst Exmpt - Family Med Member Role: Primary Care Provider Address: [address] [place] [address] [place] Care Team Related Persons Name: KAYLA SAEED Name: OLIVERIO SAEED Name: KAYLA AU
--- OUTSIDE RECORDS SUMMARY | 2024-08-07 00:03 | External Medical Summary | Summary of Care ---
Author Name Unknown Organization [facility] Address [address] [place] [address] Phone [phone] Care Team Providers Care Header Setup Operator Name Role Phone Mckenna Fernando PA-C Primary Care Provide r Reason for Visit * Reason Comments Outpatient Testing Encounter Details Date Type Department Care Team (Late st Contact Info) Description 06/20/2024 1:00 PM EST Laboratory Laboratory, [facility] [address] [place] [id number], Specimen Drop Off [facility] [address] [place] [address] Chills; Dysuria; Hematuria Allergies Active Allergy Reactions Criticality Noted Date Comments Empagliflozin 12/02/2022 hives documented as of this encounter (statuses as of 06/20/2024) Medications aspirin enteric coated 81 MG TBEC Take 1 Tab by mouth daily. 60 Tab 8 Active metFORMIN HCl 1000 MG Oral Tablet [...] (Crestor) Take 1 Tablet by mouth daily. 2 Active Farxiga 10 MG Oral Tablet (Dapagliflozin Propanediol) Take 1 Tablet by mouth daily. 2 Active Clopidogrel Bisulfate 75 MG Oral Tablet (pLAVix) 1 Tablet. 3 Active Omeprazole 40 MG Oral Capsule Delayed [...] 1 Tablet by mouth in the morning. 3 Active Tamsulosin HCl 0.4 MG Oral Capsule (Flomax) TAKE 1 CAPSULE BY MOUTH IN THE MORNING. DO NOT START BEFORE DECEMBER 11, 2022 3 Active Cilostazol 100 MG Oral Tablet (Pletal) Take 1 Tablet by mouth in the morning and 1 Tablet before bedtime. 3 Active Silver sulfADIAZINE 1 % External Cream (Silvadene) Apply to right foot wound daily. 50 g 3 3 Active Clindamycin HCl 300 MG Oral Capsule Take 1 Capsule by mouth in the morning and 1 Capsule at noon and 1 Capsule before bedtime. 30 Capsule 4 Active Additional Information Patient not taking.Reported on 12/07/2023 documented as of this encounter (statuses as of 06/20/2024) Active Problems Problem Noted Date Diagnosed Date Atherosclerosis of menominee ar sapna of right lower extremity with [...] 2 chronic kidney disease 12/05/2022 Atherosclerosis of menominee artery of extremity Chronic respiratory failure with hypoxia 023 Dyslipidemia, goal LDL below 70 12/02/2022 Type 2 diabetes mellitus wit h diabetic peripheral angiopathy and gangrene, with long-term current use of insulin 10/01/2017 Obesity, Class II, BMI 35-39.9, isolated (see ac tual BMI) 10/01/2017 History of VARICELLA UNCOMPLICATED 12/30/2010 Overview (12/30/2010): Had as a child per records History of MEASLES UNCOMPLICATED 12/30/2010 Overview (12/30/2010): Had as a child per records History of MUMPS UNCOMPLICATED 12/30/2010 Overview (12/30/2010): Had as a child per records Literacy level of illiterate 12/17/2010 HTN, goal below 130/80 12/17/2010 documented as of this encounter (statuses as of 06/20/2024) Resolved Problems Problem Noted Date Diagnosed Date Resolved Date NSTEMI (non-ST elevated myoc ardial infarction) 10/03/2017 12/09/2022 Angina pectoris 10/01/2017 12/09/2022 Back disorder 12/30/2010 12/09/2022 Overview (12/30/2010): Long history of back pain after fall from roof in 2007. Had laminectomy in 2008. Tobacco use disorder 12/30/2010 023 Lumbar disc disorder with myelopathy 12/30/2010 12/09/2022 Overview (12/30/2010): History of laminectomy documented as of this encounter (statuses as of 06/20/2024) Social History Tobacco Use Types Packs/Day Years [...] Assigned at Male 01/12/2023 2:33 AM EDT Legal Sex Male 6:01 AM EST Gender Identity Male 01/12/2023 2:33 AM EDT Sexual Orientation Straight 01/12/2023 2: 33 AM EDT documented as of this encounter Functional Status * Are you deaf or do you have serious difficulty hearing? Answer Date of Assessment Author No 12/06/2022 5:12 PM EDT Brian Valentin RN * Are you blind or do you have serious difficulty seeing, even when wearing glasses? Answer Date of Assessment Author No 12/06/2022 5:12 PM EDT Brian Valentin RN * Do you have serious difficulty walking or climbing stairs? (5 years old or older) Answer Date of Assessment Author No 12/07/2022 10:21 AM EDT Jorje Gutierrez RN * Do you have difficulty dressing or bathing? (5 years old or older) Answer Date of Assessment Author No 12/06/2022 5:12 PM EDT Brian Valentin RN * Because of a physical, mental, or emotional condition, do you have difficulty doing errands alone such as visiting a doctors office or shopping? (15 years old or older) Answer Date of Assessment Author No 12/06/2022 5:12 PM EDT Brian Valentin RN documented as of this encounter Mental Status * Because of a physical, mental, or emotional condition, do you have serious difficulty concentrating, remembering, or making decisions? (5 years old or older) Answer Entry Date Author No 12/06/2022 5:12 PM Brian Avery RN documented in this encounter Plan of Treatment Pending Results Name Type Priority Associated Diagnoses Date /Time URINALYSIS, REFLEX TO MICROSCOPIC Lab STAT Chills Dysuria Hematuria 06/20/2024 12:53 PM EST CULTURE, URINE, QUANTITATIVE Lab STAT Chills Dysuria Hematuria 06/20/2024 12:53 PM EST Health Maintenance Due Date Last Done Comments [...] 06/06/2017 HbA1c 06/08/2023 12/06/2022, 10/01/2017 COVID-19 Vaccine ( season) 2024 Influenza Vaccine (FLU shot) (#1) [...] this encounter Medical Devices Implanted Type Area Bond Trader Device Identifier Shelf Expiration Date Model / Serial / Lot Stent Peripheral 7 Diam [id number] - [id number] Implanted:Qty: 1 on 12/06/2022 by Jasper Laguerre MD at OR [facility] [place] Right: [employer] : VASCULAR [id number] 06/07/2024 [id number] / / [id number] documented as of this encounter Visit Diagnoses Diagnosis Chills Chills (without fever) Dysuria Hematuria Hematuria, unspecified documented in this encounter Advance Directives * [...] Power of Attor boom? No Care Teams Header Setup Operator Relationship Specialty Start Date End Date Mckenna Fernando PA-C [address] [place], [place] [id number] PCP - General Physician Dialysis Rn 11/05/22 documented as of this encounter
--- OUTSIDE RECORDS SUMMARY | 2024-08-07 00:03 | External Medical Summary | Continuity of Care Document ---
Author Name Unknown Organization [facility] [address] [facility] Address [address] [place], [place] [id number] Care Team Providers Care Well Puller Head Name Role Phone MeganshirleneKayla messina Primary Care Physician [phone] [id number] Date[facility]s): 07/03/24 - 07/03/24 [facility] [address], [address] [place] [address] [phone] Encounter Diagnosis Chronic right-sided CHF (congestive heart failure)(Discharge Diagnosis) - 07/03/24 Chronic right heart failure(Final) - Obstructive sleep apnea (adult) (pediatric)(Final) - Hypoxemia(Final) - Chronic diastolic (congestive) heart failure(Final) - Amputation of lR leg; below knee(Discharge Diagnosis) - 07/03/24 Diabetes(Discharge Diagnosis) - 07/03/24 HTN (hypertension)(Discharge Diagnosis) - 07/03/24 Hypoxia(Discharge Diagnosis) - 07/03/24 Chronic diastolic (congestive) heart failure(Discharge Diagnosis) - 07/03/24 BETTE (obstructive sleep apnea)(Discharge Diagnosis) - 07/03/24 Discharge Disposition: Home or Self Care Attending Physician: DO Bravo Michelle L Referring Physician: DO Bravo Michelle L Allergies, Adverse Reactions, Alerts Substance Criticality Severity Reaction Reaction Severity Status Jardiance dizziness, nausea Ac tive Assessment and Plan Extracted from: Title:Cardiology Office Visit Note Author:DO Bravo Michelle L Date:07/03/24 1.Chronic right-sided CHF (congestive heart failure) I think he is fluid overloaded. Will attempt to get auth for Furoscix-but may take several days for this to go through. Will given him IV Bumex today to try to get him through the next few days. Cont BB for now. Will consider adding Entresto if his renal function remains stable. Labs ordered today and weekly for now. Will check nocturnal pulse ox. I tried explaining that if his BETTE is severe O2 alone is likely not sufficient. Will try getting him to agree to sleep eval in [place]. He may need biPAP.? Inspire 2.Chronic diastolic (congestive) heart failure as above. Limit salt and fluid intake. 3.BETTE (obstructive sleep apnea) as above 4.Hypoxia cont O2 for now 5.Amputation of lR leg; below knee DAPT and cilostazol. 6.Diabetes DM is not optimally controlled. Will consider adding Jardiance or Farxiga. consider DC glipizide. 7.HTN (hypertension) follow BPs with med changes Thank you for allowing me to participate in the care of this very nice patient. I look forward to participating in their care with you. I will follow up after remaining tests are complete. A total of 90 minutes was spent reviewing his old records, cath and ECHO and face to face time in the office. I will see him in 1 month. Shaniqua Bravo DO [facility] Replenishercontract recruiter Heart [facility] [place] [facility] Medications aspirin 81 mg oral tablet, chewable Start: 06/24/20 1:08:00 PM EST, 1 tab, PO, Daily, Disp# 90 tab, Refills: 3, Pharmacy: [facility]/pharmacy #[id number] Start Date: 06/24/20 Status: Ordered atorvastatin 20 mg oral tablet Start: 07/03/24 11:11:00 AM EST, 1 tab, PO, Daily Start Date: 07/03/24 Status: Ordered Bactrim DS 800 mg-160 mg oral tablet Start: 06/20/24 10:57:00 AM EST, trimethoprim 1 tab, PO, bid, Disp# 14 tab, Pharmacy: [id number] Start Date: 06/20/24 Stop Date: 06/27/24 Status: Ordered BD needle Ultra-Fine Pen 29G x 0.5" Start: 11/02/22 1:45:00 PM EDT, See Instructions, Disp# 100 each, Refills: 5, Use as directed with insulin. Max ____/day. Use new pen needle with each injection., Pharmacy: [facility]/pharmacy #[id number] Start Date: 11/02/22 Status: Ordered BD needle Ultra-Fine Pen Etta 32G x 4mm Start: 12/11/21 9:41:00 AM EDT, See Instructions, Disp# 100 each, Refills: 3, To be used with insulininjections twice daily., Note to Pharmacy: ICD-10: E11.42, Pharmacy: [facility]/pharmacy #[id number] Start Date: 12/11/21 Status: Ordered cilostazol 100 mg oral tablet Start: 04/27/24 9:51:00 AM EDT, 1 tab, PO, bid, Disp# 180 tab, Refills: 0, Pharmacy: [facility] 1607 Start Date: 04/27/24 Status: Ordered clopidogrel 75 mg oral tablet Start: 03/29/24 7:19:00 AM EDT, 1 tab, PO, Daily, Disp# 90 tab, Refills: 3, Pharmacy: [facility] 1607 Start Date: 03/29/24 Status: Ordered furosemide 40 mg oral tablet Start: 05/17/24 9:15:00 AM EDT, 1 tab, PO, Daily, Disp# 90 tab, Refills: 3, IF WEIGHT INCREASES OVERNIGHT 2-3 POUNDS OR 4-5 POUNDS PER WEEK, TAKE 1 EXTRA TABLET, Pharmacy: [facility] 1607 Start Date: 05/17/24 Status: Ordered glipiZIDE 5 mg oral tablet Start: 12/26/23 7:14:00 AM EDT, 1 tab, PO, bid, Disp# 60 tab, Refills: 11, Pharmacy: [facility] Start Date: 12/26/23 Status: Ordered Lantus Solostar Pen 100 units/mL subcutaneous solution Start: 05/18/24 8:39:00 AM EDT, 50 unit =, subQ, bid, Disp# 10 mL, Refills: 11, Note to Pharmacy: UDAYTUS, Pharmacy: [facility] Start Date: 05/18/24 Stop Date: 05/13/25 Status: Ordered lisinopril 30 mg oral tablet Start: 06/08/24 8:02:00 AM EDT, 1 tab, PO, Daily, Disp# 90 tab, Refills: 3, Pharmacy: [facility] Start Date: 06/08/24 Status: Ordered metFORMIN 1000 mg oral tablet Start: 01/23/24 9:41:00 AM EDT, 1 tab, PO, bid, Disp# 180 tab, Refills: 3, Pharmacy: [facility] Start Date: 01/23/24 Status: Ordered metoprolol succinate 50 mg oral tablet, extended release Start: 06/19/24 5:23:00 PM EST, 1 tab, PO, Daily Start Date: 06/19/24 Status: Ordered nortriptyline 25 mg oral capsule Start: 06/08/24 8:02:00 AM EDT, 1 cap, PO, qhs, Disp# 90 cap, Refills: 3, Pharmacy: [facility] Start Date: 06/08/24 Status: Ordered omeprazole 40 mg oral delayed release capsule Start: 06/19/24 5:23:00 PM EST, 1 cap, PO, Daily Start Date: 06/19/24 Status: Ordered One Touch Delica (33G) Lancets Start: 08/07/18 9:27:22 AM EST, See Instructions, Disp# 300 unit, Refills: 3, Test blood sugar before meals and at bedtime, [id number] Start Date: 08/07/18 Status: Ordered One Touch Delica Plus (30G) Lancets Start: 12/11/21 9:41:00 AM EDT, See Instructions, Disp# 300 each, Refills: 3, Use to test blood sugarTID. Dx Code E11.42, [id number] Start Date: 12/11/21 Status: Ordered One Touch Verio Glucose Monitor Start: 10/05/17 11:22:00 AM EST, See Instructions, Disp# 1 each, Test blood sugar before meals and at bedtime, Pharmacy: [facility] [place] Start Date: 10/05/17 Status: Ordered One Touch Verio Test Strips Start: 12/11/21 9:41:00 AM EDT, See Instructions, Disp# 300 each, Refills: 3, Use to test blood sugarthree times daily, Note to Pharmacy: ICD-10: E11.42, [id number] Start Date: 12/11/21 Status: Ordered rosuvastatin 10 mg oral tablet Start: 06/19/24 5:23:00 PM EST, 1 tab, PO, Daily Start Date: 06/19/24 Status: Ordered Mental Status 07/03/24 Barriers to Learning one year None evide nt Mandatory Health Literacy Documentation Yes Health Literacy Communication Barriers N ever Primary Language Tuvaluan Problem List Condition Confirmation Course Effective Dates [...] exacerbation Confirmed Active Nonocclusive coronary atherosclerosis of [place] coronary artery Confirmed Active Diabetes Confirmed Active Diabetic peripheral neuropathy associated with type 2 diabetes mellitus Confirmed Active S/P BKA (below knee amputation) unilateral Confirmed Active Hyperlipidemia Confirmed Active HTN (hypertension) Confirmed Active Atherosclerosis of [place] arteries of extremities with intermittent claudication, bilateral [...] and vertebrobasilar stenosis, 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 grease buffer Confirmed Active Diagnosis Diagnosis Type Effective Dates Health Status Clinical Service Informant Hypoxia Discharge Diagnosis 07/03/24 Non-Specified Chronic right-sided CHF (congestive heart failure) Discharge Diagnosis 07/03/24 Non-Specified BETTE (obstructive sleep apnea) Discharge Diagnosis 07/03/24 Non-Specified Chronic diastolic (congestive) heart failure Discharge Diagnosis 07/03/24 Non-Specified Amputation of lR leg; below knee Discharge Diagnosis 07/03/24 Non-Specified Diabetes Discharge Diagnosis 07/03/24 Non-Specified HTN (hypertension) Discharge Diagnosis 07/03/24 Non-Specified Procedures Procedure Date Related Diagnosis Body [...] Com pleted Cardiac catheterization 10/03/[address] [place] [address] Impression: 1. Cardiomegaly without radiographic evidence of congestive failure 2. Right basiar opacities are similar to previous and likely represent scarring/atelectasis. Correlate clinically for evidence of a superimposed pneumonitis 4[facility] Impression: 1. No pulmonary emboli identified 2. Subsegmental bilateral atelectasis 3. No lymphadenopathy 5[facility] Impression: 1. No acute abnormality. incidental note is made of diverticulosis without diverticulitis [facility] Right 5th toe [facility] Impression: 1. No evidence of osteomyelitis or abscess [facility] Impression: 1. No focal cortical erosion/osteolysis or agressive periosteal reaction identified to suggest osteomyelitis. No fracture or bone lesion. Scattered gxin-sx-nsrozylw osteoarthritis. Plantar calcaneal spur. Achilles enthesophytes Results Laboratory List Name Date Basic Metabolic Panel (BASIC METAB PANEL ) 07/03/24 Complete Blood Count w Differential (CBC ,DIFFH) 07/03/24 NT-Pro BNP 07/03/24 Most recent to oldest [Reference Range]: 1 eGFR CKD-EPI [>60 mL/min/1.73 m2] >90 mL /min/1.73 m2 1 (07/03/24 1:00 PM) Hypochromia SLIGHT *Unknown* (07/03/24 1:00 PM) Schistocytes FEW *Unknown* (07/03/24 1:00 PM) Teardrop Cells FEW *Unknown* (07/03/24 1:00 PM) Platelet Morphology NORMAL *Unknown* (07/03/24 1:00 PM) BNP, NT-Pro [<125 pg/mL] 1295 pg/mL *HI* (07/03/24 1:00 PM) Estimated CrCl 87.94 mL/min (07/03/24 1:20 PM) MPV [9.0-12.2 fL] 12.1 fL (07/03/24 1:00 PM) Immature Gran% 0.0 % (07/03/24 1:00 PM) Neut% 70.0 % (07/03/24 1:00 PM) Lymph% 10.9 % (07/03/24 1:00 PM) Pitt% 10.0 % (07/03/24 1:00 PM) Baso% 4.5 % 2 (07/03/24 1:00 PM) Eos% 4.6 % (07/03/24 1:00 PM) Immat Gran, Abs [0.0-0.4 K/uL] 0.00 K/uL (07/03/24 1:00 PM) Neut, Abs [2.0-7.7 K/uL] 6.59 K/uL (07/03/24 1:00 PM) Lymph, Abs [1.0-3.4 K/uL] 1.03 K/uL (07/03/24 1:00 PM) Pitt, Abs [0-1.0 K/uL] 0.94 K/uL (07/03/24 1:00 PM) Baso, Abs [0-0.1 K/uL] 0.42 K/uL *HI* (07/03/24 1:00 PM) Eos, Abs [0-0.5 K/uL] 0.43 K/uL (07/03/24 1:00 PM) Type of Diff: MANUAL *Unknown* (07/03/24 1:00 PM) RDW [11.5-14.2 %] 18.6 % *HI* (07/03/24 1:00 PM) Anion Gap [5-14 mmol/L] 7 mmol/L (07/03/24 1:00 PM) BUN [7-20 mg/dL] 23 mg/dL *HI* (07/03/24 1:00 PM) Ca [8.4-10.2 mg/dL] 9.3 mg/dL (07/03/24 1:00 PM) Cl- [96-107 mmol/L] 94 mmol/L *LOW* (07/03/24:00 PM) HCO3 [22-30 mmol/L] 39 mmol/L *HI* (07/03/24 1:00 PM) Cret [0.70-1.30 mg/dL] 0.92 mg/dL (07/03/24 1:00 PM) Glu [74-106 mg/dL] 113 mg/dL *HI* (07/03/24 1:00 PM) Hct [39-48 %] 38.2 % *LOW* (07/03/24 1:00 PM) Hgb [13.0-17.0 g/dL] 10.3 g/dL *LOW* (07/03/24 1:00 PM) K [3.5-5.1 mmol/L] 4.7 mmol/L (07/03/24 1:00 PM) MCH [28-33 pg] 23.1 pg *LOW* (07/03/24 1:00 PM) MCHC [32-36 g/dL] 27.0 g/dL *LOW* (07/03/24 1:00 PM) MCV [81-96 fL] 85.7 fL (07/03/24 1:00 PM) Na [137-145 mmol/L] 140 mmol/L (07/03/24 1:00 PM) Plts [150-350 K/uL] 246 K/uL (07/03/24 1:00 PM) RBC [4.40-5.60 M/uL] 4.46 M/uL (07/03/24 1:00 PM) WBC [4.0-10.4 K/uL] 9.42 K/uL (07/03/24 1:00 PM) 1Result Comment: Testing Performed By: Dept of Pathology [facility] [address], [address], [place] [address] 2Result Comment: CHECKED Vital Signs Most recent to oldest [Reference Range]: 1 2 3 Patient Weight 102.5 kg (07/03/24 11:14 AM) Heart Rate 74 bpm (07/03/24 1:44 PM) 73 bpm (07/03/24 1:15 PM) 93 bpm (07/03/24 11:14 AM) Blood Pressure 108/70mmHg (07/03/24 1:44 PM) 112/68mmHg (07/03/24 1:15 PM) 122/64mmHg (07/03/24 11:14 AM) Cuff Pulse Pressure 38 mmHg (07/03/24 1:44 PM) 58 mmHg (07/03/24 11:14 AM) Social History Social History Type Response Tobacco Former smoker, Cigar ettes Smoking Status Never smoked cigaret tito Sex Male Sex Representation Male (finding) EKG study * Contributor_system, MUSE01: VERIFY, PERFORM Event Display: EKG Authored Date: Please click on link to see image. Cardiology Outpatient Note * DO Bravo Michelle L: PERFORM Event Display: Cardiology Outpt Note Authored Date: [id number] Primary Care Provider LORENA Fernando, Kayla Mckay Referring Provider DO Bravo Michelle L Reason for Consultation CHF Chief Complaint new pt to cardiology was in [facility] in may for heart failure. here for new pt/ hospital dc. + sob with minimal activity (taking his shoe off). Wheelchiar d/t recent bka History of Present Illness Lilliam Saeed is a 69 year old male with PMH significant for diastolic HF with an EF 60-65%, nonocclusive CAD s/p right heart cath on 04/30/2020 (PA diastolic 32, 50% lesion in RCA), HTN, HLD, DMand BETTE. He had a sleep study in 2018.Unfortunately, he did not tolerate CPAP. He has been on O2 3L and recently up to 5L. He was in the hospital back in December with sepsis related to an infected right leg-he underwent BKA with Dr. Greenberg. Hewas in the hospital for about 2 weeks. Then in April he was observed to have a ?seizure-was transferred from [facility] to [facility] and seen by tammi odonnell.Apparently his MRI was negative. He feels SOB all the time. He can hardly do any ADLs due to his breathing but also now due to theBKA. After his dc from [facility] in April meds were cut back including his BB and diuretic. In early May came in to [facility] with CHF. His 2020 cath from [facility] was reviewed in detail. His recent echo done at [facility] was also reviewed. His LV function is normal, with LVH and diastolic dysfunction. His RV is dilated and PA pressures are severely elevated at 64mmHg. right and left cath Findings 2020 Hemodynamic Comments: RA Pressures * Right atrial pressure is moderately elevated. PA Pressures * Pulmonary artery pressure is moderately elevated. Capillary Wedge * Normal pulmonary capillary wedge pressure. Cardiac Output * Patient has severely decreased cardiac output. Pulmonary Vascular Resistance * Pulmonary vascular resistance is severely increased. Shunt Findings * No intra-cardiac shunt was identified. Coronary Arteries: Left Main: The left main coronary artery [...] and right radial arterial (6 Fr) access. Review of Systems General: no fevers, chills, [...] or claudication Physical Exam Vitals & Measurements HR:93(Monitored) BP:122/64 SpO2:91% WT:102.5kg WT:102.500kg(Dosing) Patient is awake alert and oriented x3 and in no acute distress HEENT: 2+ carotid upstrokes, no evidence of carotid bruits LUNGS:decreaseBS on right; rales at bases HEART: Regular rate and rhythm no appreciable murmurs rubs or gallops ABDOMEN: tenseobesenontender nondistended positive bowel sounds EXTREMITIES:s/p right BKA PSYCHIATRIC: on )2 appears uncomfortable Assessment/Plan 1.Chronic right-sided CHF (congestive heart failure) I think he is fluid overloaded. Will attempt to get auth for Furoscix-but may take several daysfor this to go through. Will given him IV Bumex today to try to get him through the next few days. Cont BB for now. Will consider adding Entresto if his renal function remains stable. Labs ordered today and weekly for now. Will check nocturnal pulse ox. I tried explaining that if his BETTE is severe O2 alone is likely not sufficient. Will try getting him to agree to sleep eval in [place]. He may need biPAP.? Inspire 2.Chronic diastolic (congestive) heart failure as above. Limit salt and fluid intake. 3.BETTE (obstructive sleep apnea) as above 4.Hypoxia cont O2 for now 5.Amputation of lR leg; below knee DAPT and cilostazol. 6.Diabetes DM is not optimally controlled. Will consider adding Jardiance or Farxiga. consider DC glipizide. 7.HTN (hypertension) follow BPs with med changes Thank you for allowing me to participate in the care of this very nice patient. I look forward toparticipating in their care with you. I will follow up after remaining tests are complete. A total of 90 minutes was spent reviewing his old records, cath and ECHO and face to face time in the office. I will see him in 1 month. 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 with fetalorigin grease buffer Chronic diastolic (congestive) heart failure Chronic respiratory failure with hypoxia, on home oxygen therapy COPD without exacerbation Diabetes Diabetic peripheral neuropathy associated with type 2 diabetes mellitus HTN (hypertension) Hyperlipidemia Nonocclusive coronary atherosclerosis of [place] coronary artery BETTE (obstructive sleep apnea) PAD [...] Service Date: 11/05/2022ardiac catheterization| Service Date: 10/03/2017 Cardiac History R and L heart cath 2019-decreased cardiac output, severe PVR, PCWP 14; mild-mod single vessel CAD BETTE-on O2 CO2 retention on ABG with hypoxia morbid obesity right sided CHF and diastolic CHF DM severe PAD Medications aspirin(aspirin 81 mg oral tablet, chewable), [...] PO, Daily rosuvastatin(rosuvastatin 10 mg oral tablet), 10 mg= 1 tab, PO, Daily sulfamethoxazole-trimethoprim(Bactrim DS 800 mg-160 mg oral tablet), 1 tab, PO, bid syringe needles(BD needle Ultra-Fine Pen Etta 32G x 4mm), See Instructions, 3 refills syringe needles(BD needle Ultra-Fine Pen 29G x 0.5"), See Instructions, 5 refills Allergies Jardiancedizziness, nausea Social History Smoking Status Never smoked cigarettes Alcohol Use:Current Type:Beer Frequency:1-2 times per month 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 Hypertension: Mother. Leukemia: Father. Stroke: Mother. Type II diabetes mellitus: Father. Health Status Family Member(s) Lab Results Test Name Test Result Date/Time Na 137 mmol/L 04/30/2024 04:24 EDT K 4.9 mmol/L 04/30/2024 04:24 EDT Cl- 98 mmol/L 04/30/2024 04:24 EDT HCO3 30 mmol/L 04/30/2024 04:24 EDT Anion Gap 9 mmol/L 04/30/2024 04:24 EDT BUN 21 mg/dL 04/30/2024 04:24 EDT Cret 1.23 mg/dL 04/30/2024 04:24 EDT eGFR CKD-EPI 63 mL/min/1.73 m2 04/30/2024 04:24 EDT Glu 159 mg/dL 04/30/2024 04:24 EDT Ca 9.2 mg/dL 04/30/2024 04:24 EDT WBC 12.62 K/uL 04/30/2024 04:24 EDT Hgb 11.7 g/dL 04/30/2024 04:24 EDT Hct 41.4 % 04/30/2024 04:24 EDT RBC 4.73 M/uL 04/30/2024 04:24 EDT MCV 87.5 fL 04/30/2024 04:24 EDT MCHC 28.3 g/dL 04/30/2024 04:24 EDT MCH 24.7 pg 04/30/2024 04:24 EDT RDW 15.8 % 04/30/2024 04:24 EDT Plts 255 K/uL 04/30/2024 04:24 EDT MPV 10.4 fL 04/30/2024 04:24 EDT Homocysteine(p) 10.0 umol/L 04/30/2024 04:24 EDT Chol 77 mg/dL 04/30/2024 04:24 EDT LDL Chol, Calculated 30 mg/dL 04/30/2024 04:24 EDT HDL 20 mg/dL 04/30/2024 04:24 EDT Non-HDL 57 mg/dL 04/30/2024 04:24 EDT Chol/HDL 4 04/30/2024 04:24 EDT TG 136 mg/dL 04/30/2024 04:24 EDT HbA1c 8.4 % 04/30/2024 04:24 EDT Estimated Average Glucose 194 mg/dL 04/30/2024 04:24 EDT Electronic Signature on File Electronically Reviewed/Signed by: Shaniqua Bravo DO Author Signature Dt/Tm:07/03/2024 01:31 PM Division of General Cardiology MLS Patient Care team information Care Team Personnel Name: AUDREY Enrique Terra L Position: Nurse Pract - Vascular Surg Member Role: Lifetime Relationship Address: [address] [place] [address] [place] Name: Prasanna Wilson Catherine Position: Pharmacist Member Role: Pharmacy - Lifetime Address: [facility] [address] [place] [address] [place] Name: LORENA Gaston Bridget M Position: Physician [employer] Flatbed Truck Driver - Vascular Surg Member Role: Lifetime Relationship Address: [address] [address] [place] Name: LORENA Horan Lynn Position: Physician [employer] Flatbed Truck Driver Exempt - Vasc Surg Member Role: Lifetime Relationship Address: [address] [address] [place] Name: Prasanna Denny Paula Position: Pharmacist Member Role: Pharmacy - Lifetime Address: [facility] [address] [place] [address] [place] Name: LORENA Fernando Jessica A Position: Physician Asst Ext - Family Med Member Role: Primary Care Provider Address: [address] [address] Care Team Related Persons Name: KAYLA SAEED Name: LILLIAM SAEED Name: KAYLA AU
--- OUTSIDE RECORDS SUMMARY | 2024-08-07 00:03 | External Medical Summary | Summary of Care ---
Author Name Unknown Organization [facility] Address [address] [place] [address] Phone [phone] Care Team Providers Care American Board Certified Orthotist Name Role Phone Mckenna Fernando PA-C Primary Care Provide r Reason for Visit * Reason Comments Outpatient Testing Encounter Details Date Type Department Care Team (Late st Contact Info) Description 06/20/2024 1:00 PM EST Laboratory Laboratory, [facility] [address] [place] [id number] [address], Specimen Drop Off [facility] [address] [place] [address] Chills; Dysuria; Hematuria Allergies Active Allergy Reactions [...] Problem Noted Date Diagnosed Date Atherosclerosis of [place] ar sapna of right lower extremity with [...] 2 chronic kidney disease 12/05/2022 Atherosclerosis of [place] artery of extremity Chronic respiratory failure with [...] this encounter Medical Devices Implanted Type Area Per Diem Interpreter Device Identifier Shelf Expiration Date Model / Serial / Lot Stent Peripheral 7 Diam 150x40 - [id number] Implanted:Qty: 1 on 12/06/2022 by Jasper Laguerre MD at OR [facility] Right: [employer] : VASCULAR [id number] 06/07/2024 [id number] / / [id number] documented as of this encounter Visit Diagnoses [...] Power of Attor boom? No Care Teams American Board Certified Orthotist Relationship Specialty Start Date End Date Mckenna Fernando PA-C [address] [place], [place] [address] PCP - General Physician Supervisor [employer] 11/05/22 documented as of this encounter
--- OUTSIDE RECORDS SUMMARY | 2024-08-07 00:04 | External Medical Summary ---
Author Name Unknown Address Unknown Organization K1F:LABORATORY [facility] - [address] [address] Laboratory Report Ordering Provider Test Date Status DAVID OLVERA 06/20/2024 12:53:26 Final Observation Date Value Abnormality Reference (Units ) Status RBC, Urine 06/20/2024 12:53:26 50+ Abnormal 0-2 (/HPF) Final WBC, Urine 06/20/2024 12:53:26 50+ Abnormal 0-2 (/HPF) Final Bacteria [#/area] in Urine sediment by Microscopy high power field 06/20/2024 12:53:26 >200 Abnormal 0-25 (/HPF) Final Performing Location [facility] - [address] [address]
--- OUTSIDE RECORDS SUMMARY | 2024-08-07 00:04 | External Medical Summary ---
Author Name Unknown Address Unknown Organization K01:[facility] [place] - [address] [place] [address] Laboratory Report Ordering Provider Test Date Status CASPERPASTORDAVID 06/20/2024 12:53:26 Final <10,000 colonies/ml mixed no rmal demetrio Observation Date Value Abnormality Reference (Units ) Status Bacteria identified in Specimen by Culture 06/20/2024 12:53:26 [id number]^ENTEROC OCCUS SPECIES Abnormal Final 10,000 to 100,000 colonies/m L Enterococcus species Performing Location [facility] [place] - [address] [place] [address] Ordering Provider Test Date Status CASPERBENEDICT BAUMANNHERNANDEZ 06/20/2024 12:53:26 Final Observation Date Value Abnormality Reference (Units ) Status Ampicillin 06/20/2024 12:53:26 <=2 Susceptible Final Nitrofurantoin susceptibility 06/20/2024 12:53:26 <=16 Susceptible Final Tetracyclinesusceptibility 06/20/2024 12:53:26 >=16 Resistant Final Vancomycinsusceptibility 06/20/2024 12:53:26 <=0.5 Susceptible Final Test: Culture, Urine, Quanti tative
Specimen Source: Urine, Unspecified
Specimen Type: Urine
Specimen Date: 06/20/2024 1253
Result Date: 06/23/2024 1044
Result Status: Final result
Abnormal: Yes
Resulting Lab: [facility] [place]
[address]
[place] [address]

CULTURE

10,000 to 100,000 colonies/mL Enterococcus species (Abnormal)

<10,000 colonies/ml mixed normal demetrio

SUSCEPTIBILITY

Enterococcus
species
METHOD MICROBROTH
DILUTIONS

AMPICILLIN <=2 Susceptible
NITROFURANTOIN <=16 Susceptible
TETRACYCLINE >=16 Resistant
VANCOMYCIN <=0.5 Susceptible

null Performing Location [facility] [place] - [address] [facility] [address]
--- OUTSIDE RECORDS SUMMARY | 2024-08-07 00:04 | External Medical Summary | Continuity of Care Document ---
Author Name Unknown Organization [facility] [place] Address [address] [place] [address] [phone] Care Team Providers Care Storeperson Name Role Phone Kayla Fernando Primary Care Physician [id number] 13-2021 Encounter [facility] [id number] Date(s): 05/17/24 - 05/17/24 [facility] [address], [address] [place] [address] [phone] Encounter Diagnosis Chronic diastolic (congestive) heart failure(Discharge Diagnosis) - 05/17/24 Type 2 diabetes mellitus with diabetic peripheral angiopathy and gangrene, with long-term current use of insulin(Discharge Diagnosis) - 05/17/24 Benign hypertension with coincident congestive heart failure(Discharge Diagnosis) - 05/17/24 Chronic respiratory failure with hypoxia, on home oxygen therapy(Discharge Diagnosis) - 05/17/24 Pulmonary nodule(Discharge Diagnosis) - 05/17/24 Syncope(Discharge Diagnosis) - 05/17/24 Diabetic peripheral neuropathy associated with type 2 diabetes mellitus (Discharge Diagnosis) - 05/17/24 Discharge Disposition: Home or Self Care Attending Physician: LORENA Fernando Jessica A Allergies, Adverse Reactions, Alerts Substance Criticality Severity Reaction Reaction Severity Status Jardiance dizziness, nausea Ac tive Assessment and Plan Extracted from: Title:6 month f/u, hospitalizations Author:Zi leonard PA-C, Jessica A Date:05/17/24 1.Chronic diastolic (conge stive) heart failure Acute on chronic diastolic heart failurehas been uncontrolled. Goal is euvolemia. Patient did have an acute exacerbation of CHFrecently and was hospitalized in the lastweek, but is feeling better. He doesappear to have excess fluid on him today with peripheral edema and abdominal distention. We will increase furosemideback up from 20 to 40 mg, 1 tab p.o. daily. He will also continue on lisinopril 5 mg daily and metoprolol succinate 25 mg daily. We did discuss the importance of checking his weight at home dailyand reviewed that he may take an additional Lasix if weight increases 2 to 3 pounds overnight, 5 pounds in a week iglesia more dyspneic. Admits he will likely not check his weight ormonitor his salt intake. We also discussed the importance of keeping an appointment with cardiology as he has not seen one in years. I did place [place] [facility] [place] he is agreeableto following through with an appointment. 2.Benign hypertension with coincident congestive heart failure Benign hypertension with coincidental diastolic heart failure is chronic. BP isunder excellent control today. Goal SBP <130 and DBP <80 mmHg. Continue metoprolol succinate 25 mg daily and lisinopril 5 mg once daily. 3.Chronic respiratory failure with hypoxia, on home oxygen therapy Chronic respiratory failure with hypoxia oncontinuous supplemental oxygenis currently stable. He should continue using oxygen at 4 L/min via nasal [id number] hours/day with goal of keeping oxygen levels at >90%. We did discuss thathypoxia is likely multifactorial as hehas known pulmonary hypertension likely due to untreatedOSA, obesity, CHFandpulmonary nodule at takeoff of YASMEEN bronchus. 4.Type 2 diabetes mellitus with diabetic peripheral angiopathy and gangrene, with long-term current use of insulin Type 2 diabetes with peripheral neuropathy, peripheral angiopathy with history of gangrene and long-term use of insulinis chronic and uncontrolled. Goal A1cis <7 to 7.5%and most recent labs from April 2024 reviewed today and A1c was 8.4%. Regardless, this is significantly better thanit has in the past. For now we will continue on glipizide 5 mg, 1 tab p.o. twice daily, Lantus 60 units BIDand metformin at 1000 mg twice daily. Previously unable to tolerate SGLT2 inhibitorsand has not been able to afford GLP-1 receptor agonist. Follow-up again in 4 months. 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 6.Syncope Patient experienced a syncopal episode last monthand had an extensive workup, which was felt to be due to volumedepletion. 30-day event monitor was recommended and patient has not yet had this set up, so 30-day event monitor was ordered today. 7.Pulmonary nodule Patient has a known 9 mmnodule at the [facility]off of [facility] bronchusthat was initially diagnosed and biopsied in 2020 and negative for malignancy. Pulmonology during recent hospitalization recommendedhe meet with interventionalpulmonology to discuss if surgery would be recommended. Referral was placed. [facility] [place] reviewed today. Time spent on pre-visit plannin minutes Face to face time spent w/ patient: 21 minutes Time spent documenting pertinent clinical information into the EMR:24 minutes Total time: 56 minutes Medications aspirin 81 mg oral tablet, chewable Start: 06/24/20 1:08:00 PM EST, 1 tab, PO, Daily, Disp# 90 tab, Refills: 3, Pharmacy: [id number] Start Date: 06/24/20 Status: Ordered atorvastatin 20 mg oral tablet Start: 01/30/24 7:14:00 AM EDT, 1 tab, PO, Daily, Disp# 90 tab, Refills: 3, [id number] Start Date: 01/30/24 Status: Ordered BD needle Ultra-Fine Pen 29G x 0.5" Start: 11/02/22 1:45:00 PM EDT, See Instructions, Disp# 100 each, Refills: 5, Use as directed with insulin. Max ____/day. Use new pen needle with each injection., [facility]: [id number] Start Date: 11/02/22 Status: Ordered BD needle Ultra-Fine Pen Etta 32G x 4mm Start: 12/11/21 9:41:00 AM EDT, See Instructions, Disp# 100 each, Refills: 3, To be used with insulininjections twice daily., Note to Pharmacy: ICD-10: E11.42, Pharmacy: [id number] Start Date: 12/11/21 Status: Ordered cilostazol 100 mg oral tablet Start: 04/27/24 9:51:00 AM EDT, 1 tab, PO, bid, Disp# 180 tab, Refills: 0, [id number] Start Date: 04/27/24 Status: Ordered clopidogrel 75 mg oral tablet Start: 03/29/24 7:19:00 AM EDT, 1 tab, PO, Daily, Disp# 90 tab, Refills: 3, Pharmacy: [place] [id number] Start Date: 03/29/24 Status: Ordered cyclobenzaprine 5 mg oral tablet Start: 01/30/24 7:14:00 AM EDT, 1 tab, PO, tid, Disp# 30 tab, Refills: 1, PRN: as needed for spasm, Pharmacy: [place] [id number] Start Date: 01/30/24 Status: Ordered furosemide 40 mg oral tablet Start: 05/17/24 9:15:00 AM EDT, 1 tab, PO, Daily, Disp# 90 tab, Refills: 3, IF WEIGHT INCREASES OVERNIGHT 2-3 POUNDS OR 4-5 POUNDS PER WEEK, TAKE 1 EXTRA TABLET, Pharmacy: [place] [id number] Start Date: 05/17/24 Status: Ordered glipiZIDE 5 mg oral tablet Start: 12/26/23 7:14:00 AM EDT, 1 tab, PO, bid, Disp# 60 tab, Refills: 11, Pharmacy: [place] [id number] Start Date: 12/26/23 Status: Ordered Lantus Solostar Pen 100 units/mL subcutaneous solution Start: 05/18/24 8:39:00 AM EDT, 60 unit =, subQ, bid, Disp# 15 mL, Refills: 11, Note to Pharmacy: SRIRAM, Pharmacy: [place] [id number] Start Date: 05/18/24 Stop Date: 05/13/25 Status: Ordered lisinopril 30 mg oral tablet Start: 01/23/24 9:41:00 AM EDT, 1 tab, PO, Daily, Disp# 90 tab, Refills: 3, Pharmacy: [place] [id number] Start Date: 01/23/24 Status: Ordered metFORMIN 1000 mg oral tablet Start: 01/23/24 9:41:00 AM EDT, 1 tab, PO, bid, Disp# 180 tab, Refills: 3, Pharmacy: [place] [id number] Start Date: 01/23/24 Status: Ordered Metoprolol Succinate ER 25 mg oral tablet, extended release Start: 05/17/24 9:44:00 AM EDT, 1 tab, PO, Daily, Disp# 90 tab, Refills: 3, other Start Date: 05/17/24 Stop Date: 05/12/25 Status: Ordered nortriptyline 25 mg oral capsule Start: 11/28/23 11:48:00 AM EDT, 1 cap, PO, qhs, Disp# 30 cap, Refills: 11, Pharmacy: [id number] Start Date: 11/28/23 Status: Ordered One Touch Delica (33G) Lancets Start: 08/07/18 9:27:22 AM EST, See Instructions, Disp# 300 unit, Refills: 3, Test blood sugar before meals and at bedtime, Pharmacy: [facility] #[id number] Start Date: 08/07/18 Status: Ordered One Touch Delica Plus (30G) Lancets Start: 12/11/21 9:41:00 AM EDT, See Instructions, Disp# 300 each, Refills: 3, Use to test blood sugarTID. Dx Code E11.42, Pharmacy: [facility] #[id number] Start Date: 12/11/21 Status: Ordered One Touch Verio Glucose Monitor Start: 10/05/17 11:22:00 AM EST, See Instructions, Disp# 1 each, Test blood sugar before meals and at bedtime, Pharmacy: [facility] [place] Start Date: 10/05/17 Status: Ordered One Touch Verio Test Strips Start: 12/11/21 9:41:00 AM EDT, See Instructions, Disp# 300 each, Refills: 3, Use to test blood sugarthree times daily, Note to Pharmacy: ICD-10: E11.42, Pharmacy: [facility]/pharmacy #[id number] Start Date: 12/11/21 Status: Ordered Mental Status 05/17/24 Barriers to Learning one year None evide nt Mandatory Health Literacy Documentation Yes Health Literacy Communication Barriers N ever Primary Language Frisian Problem List Condition Confirmation Course Effective Dates [...] exacerbation Confirmed Active Nonocclusive coronary atherosclerosis of [place] coronary artery Confirmed Active Diabetes Confirmed Active Diabetic peripheral neuropathy associated with type 2 diabetes mellitus Confirmed Active Dyslipidemia Confirmed Active S/P BKA (below knee amputation) unilateral Confirmed Active Hyperlipidemia Confirmed Active HTN (hypertension) Confirmed Active Atherosclerosis of [place] arteries of extremities with intermittent claudication, bilateral [...] and vertebrobasilar stenosis, 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 packer Confirmed Active Diagnosis Diagnosis Type Effective Dates Health Status Clinical Service Informant Chronic diastolic (congestive) heart failure Discharge Diagnosis 05/17/24 Non-Specified Type 2 diabetes mellitus with diabetic peripheral angiopathy and gangrene, with long-term current use of insulin Discharge Diagnosis 05/17/24 Non-Specified Pulmonary nodule Discharge Diagnosis 05/17/24 Non-Specified Chronic respiratory failure with hypoxia, on home oxygen therapy Discharge Diagnosis 05/17/24 Non-Specified Benign hypertension with coincident congestive heart failure Discharge Diagnosis 05/17/24 Non-Specified Syncope Discharge Diagnosis 05/17/24 Non-Specified Diabetic peripheral neuropathy associated with type 2 diabetes mellitus Discharge Diagnosis 05/17/24 Non-Specified Procedures Procedure Date Related Diagnosis Body [...] Com pleted [facility] Imp[facility]: 1. Cardiomegaly without radiographic evidence of congestive failure 2. Right basiar opacities are similar to previous and likely represent scarring/atelectasis. Correlate clinically for evidence of a superimposed pneumonitis 4[facility] Impression: 1. No pulmonary emboli identified 2. Subsegmental bilateral atelectasis 3. No lymphadenopathy 5[facility] Impression: 1. No acute abnormality. incidental note is made of diverticulosis without diverticulitis [facility] Right 5th toe [facility] Impression: 1. No evidence of osteomyelitis or abscess [facility] Impression: 1. No focal cortical erosion/osteolysis or agressive periosteal reaction identified to suggest osteomyelitis. No fracture or bone lesion. Scattered [id number] osteoarthritis. Plantar calcaneal spur. Achilles enthesophytes Vital Signs Most recent to oldest [Reference Range]: 1 Temperature [36.5-37.9 DegC] 36.9 DegC (05/17/24 8:39 AM) Heart Rate 102 bpm (05/17/24 8:39 AM) Respiratory Rate 20 br/min (05/17/24 8:39 AM) Blood Pressure 122/68mmHg (05/17/24 8:39 AM) Cuff Pulse Pressure 54 mmHg (05/17/24 8:39 AM) BP Location # 1 Right Arm, Manual (05/17/24 8:39 AM) Social History Social History Type Response Tobacco Former smoker, Cigar ettes Smoking Status Never smoked cigaret tito Sex Male Sex Representation Male (finding) [facility] Outpt Note * LORENA Fernando, Kayla Mckay: PERFORM Event Display: FCM Outpt Note Authored Date: [id number] Chief Complaint 6 month follow-up History of Present Illness Amrit presents for6-month follow-upofuncontrolled type 2 diabetes withdiabetic neuropathy,peripheral angiopathy with history of gangrene, severe PVD w/ non healing wound of the right foot, chronic long-term use of insulin, CAD, chronic diastolic heart failureand HTN. Last clinic note was reviewed today. Regarding severe peripheral vascular disease with nonhealing ulcers of the right footand history of gangrene,since our last visit he did have a rightbelow knee amputationin December 2023 due to ischemic leg. He continues to follow with [place]. Lyon [facility] [place]. His stump is fully healedand he is anxious to get a prosthetic device, so he can get out of his wheelchair. His stepdaughter, Sandra, who is with him today says that theydid receive a referralto a local prosthetic provider and plan to set this appointment up in the near future.He remains on ASA 81 mg daily,clopidogrel 75 mg daily [id number] mg twice daily. No current leg pain, poor healing/open wounds or foot ulcerations. [facility]. [place] and while sitting in his wheelchair"the whole world started to spin," and recalls feeling like he was going to pass out. As soon as he leaned forward he reportedlywent unconscious andstepdaughter describes that he hadwhat appeared to be "a stroke orseizure." He was unconscious for several seconds and then came to. 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 MRI of the brain was negative for acute infarcts, but with chronicmicrovascular disease. Echocardiogram showed LVEF of 55 to 60%, right ventricular dilation and sclerotic aortic valve. During hospitalization it was eventually felt that there was no acute stroke andhypotension and dehydration were likely causes of syncopal event. His lisinopril and nitroglycerin were held at this time. A 30-day event monitor was also recommendedat dischargeto rule outarrhythmiaas source of syncope. Today both patient anddaughter tell me that they ended up not holding any of his medications andwere unaware that he needed a monitor. He has not had any recurrence of events. He was then hospitalized most recentlyat [facility] from 05/10/2024 through 05/13/2024with acute on chronic diastolic heart failure exacerbation. He ended up going to the ER because he was feeling significantly more short of breath than usual with substernal chest heaviness. He is currently sleeping in a hospital bedas he is unable to get up his stairs due to below-knee amputation and normally he can wheel himselfin his wheelchair from the living room to the kitchen and 5 minutes to get a couple coffee, but it took himover 15 minutes to do this due to having to stop with dyspnea. Continues to wear 4 L of supplemental oxygen continuously due to chronic hypoxia with respiratory failureand when this occurred he had to increase oxygen to 4 L/min. At the ERBNP aym110, troponin levels were slightly elevated and chest x-ray showed pulmonary vascular congestion.Has chronic normocytic anemia. [facility] hospitalizationhe was treated with IV Lasix. Due to history of volume depletionduring hospitalization his furosemide 40 mg daily was reduced to 20 mg daily, but advised that he couldtake an additional 20 mg tablet if needed for weight gain more than 2 pounds overnight or edema. He was also restarted on lisinopril 5 mg daily and metoprolol succinate was reduced to 25mg daily. Years ago he followed with Ccardiology, but was then lost to follow-up and despite being referredon more than 1 occasion since then he has nottouch base with seeing cardiology again. Elevated troponins were felt to be secondary to demand ischemia. He does have knownhistoryof CAD. Chest tightness/heaviness is since resolved. Also, has a known pulmonary nodulethat was initially detected in 2020. Has a known 9 mm calcified lesion at the takeoff of YASMEEN bronchusand this was felt to be partially obstructing. Pulmonaryconsultation in the hospitalrecommended follow-up with interventional pulmonology and PFTs as an outpatientthat were reportedly ordered, but patientand family have not been contacted to schedule and were not aware of this. Feels dyspnea is back to his baseline. He has had ongoing abdominal distention and mildperipheral edema. Does not check his weight at home. Does not monitoror limit sodium intake. Type 2 diabetes with long-term use of insulin, diabetic neuropathy and PADhad improved at the time of his last labs.A1c completed last month during [facility] admissionwas 8.4% and reportedly 8.8% at [facility]. Does not check glucose at home becausehe feels it is always the same.Continues on Levemir 60 units twice daily, metformin 100 mg twice daily, and glipizide 5 mg twice daily.He had also been on Farxiga at her last appointment, but this was discontinued due to side effects. Last eye exam was in the last 2 to 3 years.No ETOH, tobacco or drug use. No regular exercise and does not follow a diabetic diet. + chronic neuropathy w/ numbness from feet to knees. Painhas been stable w/ amitriptyline 75 mg nightly. + right 5th toe amputation and ongoing wound of right foot (as above).+ chronic dyspnea. No hypoglycemic episodes, polyuria, polydipsia, polyphagia, blurred vision, loss of vision, chest pain, palpitations, tachycardia, loss of balance or falls. Review of Systems ROS:All other systems negative, except HPI. Physical Exam Vitals & Measurements T:36.9C HR:102(Monitored) RR:20 BP:122/68 SpO2:96% Oxygen Flow:6(L/Min) PHQ2 Data(Data Documented on:05/17/2024 08:39) Emotional health assessment NEGATIVE General: Alert and oriented, No acute distress.Pleasant.Chronically ill appearing male w/ daughter in law, Rabia, who is the primary historian.On supplemental oxygen via nasal cannula. Eye: Pupils are equal, round and reactive to light, Extraocular movements are intact, Normal conjunctiva. HENT: Normocephalic. Posterior pharynx is pink. Uvula rises midline. No drooling, stridor or cyanosis. Neck: Supple, No lymphadenopathy, No thyromegaly. Respiratory: Lungs are clear to auscultation, Respirations are non-labored, Breath sounds are equal, Symmetrical chest wall expansion. Diminished air exchange throughout all lung maria. Cardiovascular:Mildly tachycardic, regular rhythm, No murmur, No gallop. Right below knee amputation. Left LE w/ +1-2 pitting edema. Abdomen: Normoactive BS x 4.Distended. No tenderness, palpable masses or organomegaly. Lymphatics: No submandibular, anterior or posterior cervical adenopathy palpable. Musculoskeletal Seated in wheelchair. Right below-knee amputation. Integumentary: Warm, [place], No pallor. Neurologic: Alert, Oriented, Cranial Nerves II-XII are grossly intact. Cognition and Speech: Oriented, Speech clear and coherent, Functional cognition intact. Psychiatric: Cooperative, Appropriate mood & affect, Normal judgment, Nonsuicidal. Assessment/Plan 1.Chronic diastolic (congestive) heart failure Acute on chronic diastolic heart failurehas been uncontrolled. Goal is euvolemia. Patient didhave an acute exacerbation of CHFrecently and was hospitalized in the lastweek, but is feeling better. He doesappear to have excess fluid on him today with peripheral edema and abdominal distention. We will increase furosemideback up from 20 to 40 mg, 1 tab p.o. daily. He will also continue on lisinopril 5 mg daily and metoprolol succinate 25 mg daily. We did discuss the importance of checking his weight at home dailyand reviewed that he may take an additional Lasix if weight increases 2 to 3 pounds overnight, 5 pounds in a week iglesia more dyspneic. Admits he will likely not check his weight ormonitor his salt intake. We also discussed the importance of keeping an appointment with cardiology as he has not seen one in years. I did place another referral to [facility] [place]and he is agreeableto following through with an appointment. 2.Benign hypertension with coincident congestive heart failure Benign hypertension with coincidental diastolic heart failure is chronic. BP isunder excellent control today. Goal SBP <130 and DBP <80 mmHg. Continue metoprolol succinate 25 mg dailyand lisinopril 5 mg once daily. 3.Chronic respiratory failure with hypoxia, on home oxygen therapy Chronic respiratory failure with hypoxia oncontinuous supplemental oxygenis currently stable. He should continue using oxygen at 4 L/min via nasal [id number] hours/day with goal of keeping oxygen levels at >90%. We did discuss thathypoxia is likely multifactorial as hehas known pulmonary hypertension likely due to untreatedOSA, obesity, CHFandpulmonary nodule at takeoff ofL bronchus. 4.Type 2 diabetes mellitus with diabetic peripheral angiopathy and gangrene, with long-term current use of insulin Type 2 diabetes with peripheral neuropathy, peripheral angiopathy with history of gangrene and long-term use of insulinis chronic and uncontrolled. Goal A1cis <7 to 7.5%and most recent labs from April 2024 reviewed today and A1c was 8.4%. Regardless, this is significantly better thanit has in the past. For now we will continue on glipizide 5 mg, 1 tab p.o. twice daily, Lantus 60 units BIDand metformin at 1000 mg twice daily. Previously unable to tolerate SGLT2 inhibitorsand has not been able to afford GLP-1 receptor agonist. Follow-up again in 4 months. 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 6.Syncope Patient experienced a syncopal episode last monthand had an extensive workup, which was felt steve due to volumedepletion. 30-day event monitor was recommended and patient has not yet had this set up, so 30-day event monitor was ordered today. 7.Pulmonary nodule Patient has a known 9 mmnodule at the takeoff of YASMEEN bronchusthat was initially diagnosed andbiopsied in 2020 and negative for malignancy. Pulmonology during recent hospitalization recommendedhe meet with interventionalpulmonology to discuss if surgery would be recommended. Referral was placed. [facility] [place] reviewed today. 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 packer Chronic diastolic (congestive) heart failure Chronic respiratory failure with hypoxia, on home oxygen therapy COPD without exacerbation Diabetes Diabetic peripheral neuropathy associated with type 2 diabetes mellitus Dyslipidemia HTN (hypertension) Hyperlipidemia Nonocclusive coronary atherosclerosis of [place] coronary artery BETTE (obstructive sleep apnea) PAD [...] 1 tab, PO, bid metoprolol(Metoprolol Succinate ER 25 mg oral tablet, extended release), 25 mg= 1 tab, PO, Daily, 3refills nortriptyline(nortriptyline 25 mg oral capsule), 1 cap, PO, qhs syringe needles(BD needle Ultra-Fine Pen Etta 32G x 4mm), See Instructions, 3 refills syringe needles(BD needle Ultra-Fine Pen 29G x 0.5"), See Instructions, 5 refills Allergies Jardiancedizziness, nausea Social History Smoking Status Never smoked cigarettes Alcohol Use:Current Type:Beer Frequency:1-2 times per month 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 Hypertension: Mother. Leukemia: Father. Stroke: Mother. Type II diabetes mellitus: Father. Health Status Family Member(s) Recommendations Health Maintenance Pending(in the next year) OverDue Diabetic Eye Exam due11/05/21and every 731day Adult Influenza Vaccine due02/05/24and every 1year Due Adult COVID-19 Vaccination due05/17/24Unknown Frequency Adult Social Determinants of Health Screening due05/17/24Unknown Frequency Adult Tdap/Td Vaccine due05/17/24Unknown Frequency Colorectal Cancer Screening due05/17/24Unknown Frequency Hepatitis C Screening due05/17/24One-time only Medicare Annual Wellness Visit due05/17/24and every 1year Pneumococcal Vaccine Older Adults due05/17/24One-time only Shingles Vaccine due05/17/24One-time only Due In Future Body Mass Index not due until11/10/24and every 366day Diabetes Management A1c not due until05/01/25and every 366day Satisfied(in the past 1 year) Satisfied Body Mass Index on04/30/24.Satisfied by KALA Marquez, Yarely Johnson Diabetes Management A1c on04/30/24.Satisfied by Contributor_system, [email or web address] Diabetes Nephropathy Management on11/10/23.Satisfied by Contributor_system, [email or web address] Lipid Screening on04/30/24.Satisfied by Contributor_system, [email or web address] Electronic Signature on File Electronically Reviewed/Signed by: Kayla Fernando PA-C,[facility] Author Signature Dt/Tm::57 AM Physician Senior Network Administrator [facility] [address] [address] [place] Patient Care team information Care Team Personnel Name: AUDREY Enrique Terra L Position: Nurse Pract - Vascular Surg Member Role: Lifetime Relationship Address: [address] [place] [address] [place] [address] [place] Name: Prasanna Wilson Catherine Position: Pharmacist Member Role: Pharmacy - Lifetime Address: [address] [address] [place] Name: LORENA Gaston Bridget M Position: Physician Senior Network Administrator - Vascular Surg Member Role: Lifetime Relationship Address: [address] [place] [address] [place] Name: LORENA Horan Lynn Position: Physician Senior Network Administrator Exempt - Vasc Surg Member Role: Lifetime Relationship Address: [address] [place] [address] [place] Name: Prasanna Denny Paula Position: Pharmacist Member Role: Pharmacy - Lifetime Address: [address] [address] [place] Name: LORENA Fernando Jessica A Position: Physician Asst Exmpt - Family Med Member Role: Primary Care Provider Address: [address] [place] [address] [address] [place] [address] [place] Care Team Related Persons Name: KAYLA SAEED Name: LILLIAM SAEED Name: KAYLA AU
--- OUTSIDE RECORDS SUMMARY | 2024-08-07 00:04 | External Medical Summary ---
Author Name Unknown Address Unknown Organization [facility] - [address] [place] [address] Laboratory Report Ordering Provider Test Date Status ARMANDO OLVERAOUGH 06/20/2024 12:53:26 Final Observation Date Value Abnormality Reference (Units ) Status Color of Urine by Auto 06/20/2024 12:53:26 [place] Abnormal Light Yellow, Yellow, Dark Yellow Final Clarity, Urine 06/20/2024 12:53:26 Slightly Cloudy Abnormal Clear Final Glucose [Mass/volume] in Urine by Automated test strip 06/20/2024 12:53:26 100 Abnormal Negative (mg/dL) Final Bilirubin.total [Presence] in Urine by Automated test strip 06/20/2024 12:53:26 Moderate Abnormal Negative Final Ketones [Mass/volume] in Urine by Automated test strip 06/20/2024 12:53:26 Trace Abnormal Negative (mg/dL) Final Specific gravity, Urine 06/20/2024 12:53:26 1.015 1.003-1.030 Final Hemoglobin [Presence] in Urine by Automated test strip 06/20/2024 12:53:26 Large Abnormal Negative Final pH, Urine 06/20/2024 12:53:26 5.0 5.0-7.5 (Units) Final Protein [Mass/volume] in Urine by Automated test strip 06/20/2024 12:53:26 100 Abnormal Negative (mg/dL) Final Urobilinogen [Mass/volume] in Urine by Automated test strip 06/20/2024 12:53:26 >=8.0 Abnormal 0.2, 1.0 (mg/dL) Final Nitrite [Presence] in Urine by Automated test strip 06/20/2024 12:53:26 Positive Abnormal Negative Final Leukocyte esterase [Presence] in Urine by Automated test strip 06/20/2024 12:53:26 Moderate Abnormal Negative Final Performing Location [facility] - [address] [place] [address]
--- OUTSIDE RECORDS SUMMARY | 2024-08-07 00:04 | External Medical Summary | Continuity of Care Document ---
Author Name Unknown Organization [facility]SY 1 MB [id number] [place] [address] [place] [phone] Care Team Providers Care Mortgage Processing Manager Name Role Phone Kayla Fernando Primary Care Physician [phone] [id number] Date(s): 05/18/24 - 05/18/24 [facility] 1 MB [id number] [facility] [place] - Main Building [address] [facility] [place] [phone] Discharge Disposition: Home or Self Care Attending Physician: LORENA Fernando Jessica A Referring Physician: LORENA Fernando Jessica A Allergies, Adverse Reactions, Alerts Substance Criticality Severity Reaction Reaction Severity Status Jardiance dizziness, nausea Ac tive Medications aspirin 81 mg oral tablet, chewable Start: 06/24/20 1:08:00 PM EST, 1 tab, PO, Daily, Disp# 90 tab, Refills: 3, Pharmacy: [facility]/pharmacy #[id number] Start Date: 06/24/20 Status: Ordered atorvastatin 20 mg oral tablet Start: 01/30/24 7:14:00 AM EDT, 1 tab, PO, Daily, Disp# 90 tab, Refills: 3, Pharmacy: [id number] Start Date: 01/30/24 Status: Ordered BD needle Ultra-Fine Pen 29G x 0.5" Start: 11/02/22 1:45:00 PM EDT, See Instructions, Disp# 100 each, Refills: 5, Use as directed with insulin. Max ____/day. Use new pen needle with each injection., Pharmacy: [facility]/pharmacy #[id number] Start Date: 11/02/22 Status: Ordered BD needle Ultra-Fine Pen Etta 32G x 4mm Start: 12/11/21 9:41:00 AM EDT, See Instructions, Disp# 100 each, Refills: 3, To be used with insulininjections twice daily., Note to Pharmacy: ICD-10: E11.42, Pharmacy: [facility]/pharmacy #[id number] Start Date: 12/11/21 Status: Ordered cilostazol 100 mg oral tablet Start: 04/27/24 9:51:00 AM EDT, 1 tab, PO, bid, Disp# 180 tab, Refills: 0, Pharmacy: [place] [id number] Start Date: 04/27/24 Status: Ordered clopidogrel 75 mg oral tablet Start: 03/29/24 7:19:00 AM EDT, 1 tab, PO, Daily, Disp# 90 tab, Refills: 3, Pharmacy: [place] [id number] Start Date: 03/29/24 Status: Ordered cyclobenzaprine 5 mg oral tablet Start: 01/30/24 7:14:00 AM EDT, 1 tab, PO, tid, Disp# 30 tab, Refills: 1, PRN: as needed for spasm, Pharmacy: [place] [id number] Start Date: 01/30/24 Status: Ordered furosemide 40 mg oral tablet Start: 05/17/24 9:15:00 AM EDT, 1 tab, PO, Daily, Disp# 90 tab, Refills: 3, IF WEIGHT INCREASES OVERNIGHT 2-3 POUNDS OR 4-5 POUNDS PER WEEK, TAKE 1 EXTRA TABLET, Pharmacy: [place] [id number] Start Date: 05/17/24 Status: Ordered glipiZIDE 5 mg oral tablet Start: 12/26/23 7:14:00 AM EDT, 1 tab, PO, bid, Disp# 60 tab, Refills: 11, Pharmacy: [place] [id number] Start Date: 12/26/23 Status: Ordered Lantus Solostar Pen 100 units/mL subcutaneous solution Start: 05/18/24 8:39:00 AM EDT, 60 unit =, subQ, bid, Disp# 15 mL, Refills: 11, Note to Pharmacy: SRIRAM, Pharmacy: [place] [id number] Start Date: 05/18/24 Stop Date: 05/13/25 Status: Ordered lisinopril 30 mg oral tablet Start: 01/23/24 9:41:00 AM EDT, 1 tab, PO, Daily, Disp# 90 tab, Refills: 3, Pharmacy: [facility] Start Date: 01/23/24 Status: Ordered metFORMIN 1000 mg oral tablet Start: 01/23/24 9:41:00 AM EDT, 1 tab, PO, bid, Disp# 180 tab, Refills: 3, Pharmacy: [facility] Start Date: 01/23/24 Status: Ordered Metoprolol Succinate ER 25 mg oral tablet, extended release Start: 05/17/24 9:44:00 AM EDT, 1 tab, PO, Daily, Disp# 90 tab, Refills: 3, other Start Date: 05/17/24 Stop Date: 05/12/25 Status: Ordered nortriptyline 25 mg oral capsule Start: 11/28/23 11:48:00 AM EDT, 1 cap, PO, qhs, Disp# 30 cap, Refills: 11, Pharmacy: [id number] Start Date: 11/28/23 Status: Ordered One Touch Delica (33G) Lancets Start: 08/07/18 9:27:22 AM EST, See Instructions, Disp# 300 unit, Refills: 3, Test blood sugar before meals and at bedtime, [id number] Start Date: 08/07/18 Status: Ordered One Touch Delica Plus (30G) Lancets Start: 12/11/21 9:41:00 AM EDT, See Instructions, Disp# 300 each, Refills: 3, Use to test blood sugarTID. Dx Code E11.42, Pharmacy: [facility]/pharmacy #[id number] Start Date: 12/11/21 Status: Ordered One Touch Verio Glucose Monitor Start: 10/05/17 11:22:00 AM EST, See Instructions, Disp# 1 each, Test blood sugar before meals and at bedtime, Pharmacy: [facility] [place] Start Date: 10/05/17 Status: Ordered One Touch Verio Test Strips Start: 12/11/21 9:41:00 AM EDT, See Instructions, Disp# 300 each, Refills: 3, Use to test blood sugarthree times daily, Note to Pharmacy: ICD-10: E11.42, Pharmacy: [facility]/pharmacy #[id number] Start Date: 12/11/21 Status: Ordered [...] exacerbation Confirmed Active Nonocclusive coronary atherosclerosis of mi'kmaq coronary artery Confirmed Active Diabetes Confirmed Active Diabetic peripheral neuropathy associated with type 2 diabetes mellitus Confirmed Active Dyslipidemia Confirmed Active S/P BKA (below knee amputation) unilateral Confirmed Active Hyperlipidemia Confirmed Active HTN (hypertension) Confirmed Active Atherosclerosis of mi'kmaq arteries of extremities with intermittent claudication, bilateral [...] and vertebrobasilar stenosis, 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 Cardiomegaly without radiographic evidence of congestive failure 2. Right basiar opacities are similar to previous and likely represent scarring/atelectasis. Correlate clinically for evidence of a superimposed pneumonitis 4[facility] Impression: 1. No pulmonary emboli identified 2. Subsegmental bilateral atelectasis 3. No [facility]adenopathy [facility] 1. No acute abnormality. incidental note is made of diverticulosis without diverticulitis 6[facility] Right [facility]th toe [facility] Impression: 1. No evidence of osteomyelitis or abscess [facility] Impression: 1. No focal cortical erosion/osteolysis or agressive periosteal reaction identified to suggest osteomyelitis. No fracture or bone lesion. Scattered [id number] osteoarthritis. Plantar calcaneal spur. Achilles enthesophytes Social History Social History Type Response Tobacco Former smoker, Cigar ettes Smoking Status Never smoked cigaret tito Sex Male Sex Representation Male (finding) Patient Care team information Care Team Personnel Name: AUDREY Enrique Terra L Position: Nurse Pract - Vascular Surg Member Role: Lifetime Relationship Address: [address] [facility] [place] [address] [place] Name: Prasanna Wilson Catherine Position: Pharmacist Member Role: Pharmacy - Lifetime Address: [facility] [address] [place] [address] [place] Name: LORENA Gaston Bridget M Position: Physician Appeals Rn - Vascular Surg Member Role: Lifetime Relationship Address: [address] [place] [address] [place] Name: LORENA Horan Lynn Position: Physician Appeals Rn Exempt - Vasc Surg Member Role: Lifetime Relationship Address: [address] [place] [address] [place] Name: Prasanna Denny Paula Position: Pharmacist Member Role: Pharmacy - Lifetime Address: [address] [address] [place] Name: LORENA Fernando Jessica A Position: Physician Asst Ext - Family Med Member Role: Primary Care Provider Address: [address] [place] [address] [place] Care Team Related Persons Name: KAYLA SAEED Name: LILLIAM SAEED Name: KAYLA AU
[2024-08-07 00:25] LABS: Basophils # (auto) 0.08 K/uL (0.00-0.20); Basophils % (auto) 0.7 %; Eosinophils # (auto) 0.52 K/uL (0.00-0.50); Eosinophils % (auto) 4.7 %; Hematocrit (blood only) 36.1 % (42.0-52.0); Immature Granulocytes # (auto) 0.03 K/uL (0.01-0.20); Immature Granulocytes % (auto) 0.3 %; Lymphocytes # (auto) 1.79 K/uL (1.20-3.40); Lymphocytes % (auto) 16.2 %; Mean Corpuscular Hemoglobin 23.1 pg (25.0-34.0); Mean Corpuscular Hgb Conc 27.7 g/dL (32.0-36.0); Mean Corpuscular Volume 83.4 fL (80.0-100.0); Mean Platelet Volume 11.1 fL (9.4-12.4); Monocytes # (auto) 1.01 K/uL (0.11-0.59); Monocytes % (auto) 9.2 %; Neutrophils # (auto) 7.59 K/uL (1.40-6.50); Neutrophils % (auto) 68.9 %; Platelet Count 300 K/uL (130-400); RDW Coefficient of Variation 18.7 % (11.5-14.5); RDW Standard Deviation 56.4 fL (36.4-46.3); Red Blood Count 4.33 M/uL (4.70-6.10); White Blood Count 11.02 K/ul (4.8-10.8)
[2024-08-07 00:43] LABS: Albumin Globulin Ratio 1.5 (0.9-2); Albumin Level 4.1 gm/dl (3.4-5.0); BUN Creatinine Ratio 32.5 (10-20); Bilirubin,Total 0.6 mg/dl (0.2-1.0); Calcium 9.3 mg/dl (8.6-10.3); Creatinine Clr Calc Pharmacy 55.4 ml/min; Globulin 2.7 gm/dl (2.5-4.0); Potassium 4.9 mmol/L (3.5-5.1); Total Protein 6.8 gm/dl (6.0-8.3)
[2024-08-07 00:51] LABS: Troponin I High Sensitivity 22.5 pg/ml (0-20)
--- NOTE | 2024-08-07 02:09 | XRay Report ---
EXAM: XR chest 1V portable CLINICAL HISTORY: CHEST PAIN/ DYSPNEA. TECHNIQUE: An X-ray image of the chest is obtained in anteroposterior (AP) projection. COMPARISON: X-ray dated 05/10/2024. FINDINGS: Pulmonary Parenchyma: The prominence of perihilar broncho-vascular markings is probably due to pulmonary vascular congestion. Right lower zone possible infiltrates versus atelectasis. Left mid/lower zone and retrocardiac region opacification. Blunted left CP angle, representing pleural effusion. Heart and Mediastinum: Heart size appears enlarged. No hilar or mediastinal lymphadenopathy. Bony Thorax: The bony thorax appears intact without fractures or deformities. Soft Tissues: Soft tissues overlying the chest wall are unremarkable. IMPRESSION: 1. Interval development of the right lower zone possible infiltrates versus atelectasis. 2. A mildly blunted left CP angle may represent a small pleural effusion(new). 3. Stable left mid/lower zone and retrocardiac region opacification, representing infective/inflammatory etiology. 4. Stable enlarged heart with the prominence of perihilar broncho-vascular markings probably due to pulmonary vascular congestion. 5. Clinical correlation is suggested. Electronically signed by Rachelle Boland 08-07-2024 02:09 AM
[2024-08-07 02:48] LABS: Troponin I High Sensitivity 21.6 pg/ml (0-20)
[2024-08-07] MEDS ORDERED: ALBUT/IPRATROP 3MG/0.5MG NEB 3 ML VIAL NEB PRN (02:49)
--- NOTE | 2024-08-07 02:52 | History & Physical Report ---
Date of Service August 07, 2024 Assessment & Plan (1) Pneumonia involving right lung: (2) Acute on chronic respiratory failure with hypoxia: (3) COPD exacerbation: (4) Type 2 diabetes mellitus: (5) Acute kidney injury: Admission and Anticipated Discharge Date Admission Date: The patient is a 69-year-old male with a past medical history including chronic hypoxemic respiratory failure, HFpEF, pulm hypertension, bacteremia due to staph, COPD, PAD, BETTE, diabetes mellitus type 2, CAD, hypertension and history of pneumonia. He was referred to the emergency department after outpatient laboratories revealed elevated creatinine, and patient had complaint of shortness of breath. #Acute on chronic respiratory failure with hypoxia/COPD exacerbation/pneumonia involving right lower lobe- Ceftriaxone 2 g IV every 24 hours Azithromycin 500 mg IV daily DuoNebs every 2 hours as needed Mucinex 1200 mg p.o. every 12 hours Chest x-ray with right lower lobe infiltrate Nasal cannula oxygen, titrate to keep pulse ox 92-94% #Acute kidney injury- Creatinine 1.57, with base 1.14 Hold lisinopril and furosemide Placed on NSS at 80 mL/h x 1 L Recheck laboratories in the a.m. #Diabetes mellitus- Hold glimepiride and metformin Change glargine from 50 units to 30 units SQ twice daily Place on Accu-Cheks with NovoLog SSI Check hemoglobin A1c #PAD/history left BKA- Continue aspirin, Pletal, clopidogrel, nortriptyline #Hyperlipidemia- Continue rosuvastatin Check a fasting lipid panel #GERD- Change omeprazole to pantoprazole per formulary interchange History of Present Illness Chief Complaint: The patient was referred to the emergency department due to abnormal kidney function test as an outpatient Primary Care Provider: Mckenna Fernando PA-C The patient is a 69-year-old male with a past medical history including chronic hypoxemic respiratory failure, HFpEF, pulm hypertension, bacteremia due to s taph, COPD, PAD, BETTE, diabetes mellitus type 2, CAD, hypertension and history of pneumonia. He was referred to the emergency department after outpatient laboratories revealed elevated creatinine, and patient had complaint of shortness of breath. Allergies Allergy/AdvReac Type Severity Reaction Status Date / Time empagliflozin Allergy Intermediate Nausea, Verified 05/10/24 16:21 [From Jardiance] Dizziness nitroglycerin Allergy Intermediate Unknown - Unverified 05/10/24 16:17 Was just told to not take it as precaution Home Medications Medication Instructions Recorded Confirmed Type aspirin 81 mg chewable tablet 81 mg PO DAILY 08/07/24 08/07/24 History (Children's Aspirin) cilostazol 100 mg tablet 100 mg PO BID 08/07/24 08/07/24 History clopidogrel 75 mg tablet 75 mg PO DAILY 08/07/24 08/07/24 History furosemide 40 mg tablet 40 mg PO BID 08/07/24 08/07/24 History glipizide 5 mg tablet 5 mg PO BID 08/07/24 08/07/24 History insulin glargine 100 unit/mL (3 50 unit subcut BID 08/07/24 08/07/24 History mL) subcutaneous pen (Lantus Solostar U-100 Insulin) lisinopril 30 mg tablet 30 mg PO DAILY 08/07/24 08/07/24 History metformin 1,000 mg tablet 1,000 mg PO BID 08/07/24 08/07/24 History metoprolol succinate 50 mg 50 mg PO DAILY 08/07/24 08/07/24 History tablet,extended release 24 hr nortriptyline 25 mg capsule 25 mg PO HS 08/07/24 08/07/24 History omeprazole 40 mg capsule,delayed 40 mg PO DAILY 08/07/24 08/07/24 History release rosuvastatin 10 mg tablet 10 mg PO DAILY 08/07/24 08/07/24 History Past Med/Surg History Problem List (Updated 08/07/24 @ 04:40 by Allen Merritt MD) Acute kidney injury COPD exacerbation Acute on chronic respiratory failure with hypoxia Pneumonia involving right lung Pulmonary edema (Acute) Chronic hypoxemic respiratory failure (Acute) (HFpEF) heart failure with preserved ejection fraction Pulmonary hypertension Ex-smoker Pulmonary nodule S/P below knee amputation Endotracheally intubated RVF (right ventricular failure) Acute and chronic respiratory failure Pressure ulcer of right foot, unstageable Ischemic foot CHF (congestive heart failure) COPD (chronic obstructive pulmonary disease) Acute hyperglycemia (Acute) Acute hyponatremia (Acute) Cellulitis of foot, right (Acute) PAD (peripheral artery disease) (Acute) Occlusion of right popliteal artery (Acute) CKD (chronic kidney disease) stage 2, GFR 60-89 ml/min DVT prophylaxis BETTE (obstructive sleep apnea) Type 2 diabetes mellitus Coronary artery disease (Acute) Hypertension Abnormal pulmonary finding Abnormal chest CT Acute respiratory failure with hypoxia Pneumonia Hypoxia (Acute) Mucus plugging of bronchi (Acute) Medical History Gangrene due to arterial insufficiency Septic shock Pulmonary hypertension Hyperlipidemia Family History Other Family history non-contributory Social History Smoking Status: Former smoker Tobacco Type: Cigarettes Cigarettes Per Day: na; Second Hand Exposure: No; Do You Dip or Chew Tobacco: No; Hx Alcohol Use: Yes (occasional) Alcohol type: other Hx Substance Use: Yes (occasionally) Last Used Substance Other:: na Substance Use Type Other:: na Preferred Language: Latvian Communication Ability: Effective Log Deck Tender Required: No Beliefs That Will Affect Care: None Current Living Situation: Family Current Living Situation Comment: with son and daughter inlaw How many Children do You have: 5 Feels Safe at Home: Yes Assistive Devices: Cane and Oxygen - at Night Review of Systems Review of Systems: The patient denies chest pain, palpitations, lower extremity swelling, sore throat, fevers, chills, sweats, nausea, vomiting, diarrhea , constipation, abdominal pain, pelvic pain, blood in urine or stool, dysuria, urinary frequency or urgency, loss of consciousness, rash, abnormal bruising or bleeding, focal or generalized weakness, numbness or tingling in arms or right leg generalized arthralgias or myalgias, back or neck pain, or night sweats. The review of systems is otherwise negative other than for that already noted above, and at least 10 systems have been reviewed. Physical Exam Physical Exam: The patient is awake, alert and oriented 3, well developed and well nourished, normocephalic and atraumatic, lying in bed and in no acute distress. HEENT--PERRL, EOMI, mucous membranes and oropharynx dry. Neck--supple. No JVD. No bruits. Thyroid normal, trachea midline, no adenopathy. Heart--normal S1 and S2. No murmurs, rubs or gallops. Lungs--clear bilaterally, no respiratory distress, no accessory muscle use. Abdomen--normal bowel sounds and soft. Nontender. Nondistended, no hernias or masses, no organomegaly. Extremities--left BKA. Right lower extremity with trace to 1+ pitting edema Dermatologic--normal skin turgor, normal color, no abnormal lymph nodes, no rash. Neurologic--cranial nerves II through XII grossly intact. Rheumatologic--normal range of motion, except for left AKA Psychiatric--normal affect. Results & Data Results & Data Vital Signs (Past 12 Hours) Vital Signs Temp Pulse Pulse Resp BP BP Pulse Ox 08/07/24 01:07 89 18 125/83 94 08/06/24 23:59 97 H 18 98 08/06/24 23:25 84 18 124/81 98 08/06/24 23:25 98 08/06/24 23:24 88 08/06/24 23:07 36.6 C 106 H 22 143/97 H 93 08/06/24 23:07 O2 Del Method O2 Flow Rate 08/07/24 01:07 Nasal Cannula 5 08/06/24 23:59 Nasal Cannula 5 08/06/24 23:25 Nasal Cannula 5 08/06/24 23:25 Room Air 08/06/24 23:24 08/06/24 23:07 Nasal Cannula 5 08/06/24 23:07 Nasal Cannula 5 Laboratory Results Laboratory Results WBC 11.02 K/ul (4.8-10.8) H 08/07/24 00:09 RBC 4.33 M/uL (4.70-6.10) L 08/07/24 00:09 Hgb 10.0 g/dl (14.0-18.0) L 08/07/24 00:09 Hct 36.1 % (42.0-52.0) L 08/07/24 00:09 MCV 83.4 fL (80.0-100.0) 08/07/24 00:09 MCH 23.1 pg (25.0-34.0) L 08/07/24 00:09 MCHC 27.7 g/dL (32.0-36.0) L 08/07/24 00:09 RDW Std Deviation 56.4 fL (36.4-46.3) H 08/07/24 00:09 RDW Coeff of Larry 18.7 % (11.5-14.5) H 08/07/24 00:09 Plt Count 300 K/uL (130-400) 08/07/24 00:09 MPV 11.1 fL (9.4-12.4) 08/07/24 00:09 Immature Gran % (Auto) 0.3 % 08/07/24 00:09 Neut % (Auto) 68.9 % 08/07/24 00:09 Lymph % (Auto) 16.2 % 08/07/24 00:09 Gentry % (Auto) 9.2 % 08/07/24 00:09 Eos % (Auto) 4.7 % 08/07/24 00:09 Baso % (Auto) 0.7 % 08/07/24 00:09 Neut # (Auto) 7.59 K/uL (1.40-6.50) H 08/07/24 00:09 Lymph # (Auto) 1.79 K/uL (1.20-3.40) 08/07/24 00:09 Gentry # (Auto) 1.01 K/uL (0.11-0.59) H 08/07/24 00:09 Eos # (Auto) 0.52 K/uL (0.00-0.50) H 08/07/24 00:09 Baso # (Auto) 0.08 K/uL (0.00-0.20) 08/07/24 00:09 Immature Gran # (Auto) 0.03 K/uL (0.01-0.20) 08/07/24 00:09 Sodium 139 mmol/L (136-145) 08/07/24 00:09 Potassium 4.9 mmol/L (3.5-5.1) 08/07/24 00:09 Chloride 95 mmol/L (98-107) L 08/07/24 00:09 Carbon Dioxide 40 mmol/L (21-32) H 08/07/24 00:09 Anion Gap 4 (3-11) 08/07/24 00:09 BUN 51 mg/dl (6-23) H 08/07/24 00:09 Creatinine 1.57 mg/dl (0.6-1.4) H 08/07/24 00:09 Est Cr Clr Drug Dosing 55.4 ml/min 08/07/24 00:09 eGFR 47.42 08/07/24 00:09 BUN/Creatinine Ratio 32.5 (10-20) H 08/07/24 00:09 Glucose 93 mg/dl (70-99(Fasting)) 08/07/24 00:09 POC Glucose 84 mg/dl (70-99) 08/07/24 02:39 Calcium 9.3 mg/dl (8.6-10.3) 08/07/24 00:09 Total Bilirubin 0.6 mg/dl (0.2-1.0) 08/07/24 00:09 AST 18 U/L (13-39) 08/07/24 00:09 ALT 7 U/L (7-52) 08/07/24 00:09 Alkaline Phosphatase 66 U/L (34-104) 08/07/24 00:09 Troponin I High Sens 21.6 pg/ml (0-20) H 08/07/24 01:59 Total Protein 6.8 gm/dl (6.0-8.3) 08/07/24 00:09 Albumin 4.1 gm/dl (3.4-5.0) 08/07/24 00:09 Globulin 2.7 gm/dl (2.5-4.0) 08/07/24 00:09 Albumin/Globulin Ratio 1.5 (0.9-2) 08/07/24 00:09 Impressions Chest X-Ray 08/06/24 23:58 EXAM: XR chest 1V portable CLINICAL HISTORY: CHEST PAIN/ DYSPNEA. TECHNIQUE: An X-ray image of the chest is obtained in anteroposterior (AP) projection. COMPARISON: X-ray dated 05/10/2024. FINDINGS: Pulmonary Parenchyma: The prominence of perihilar broncho-vascular markings is probably due to pulmonary vascular congestion. Right lower zone possible infiltrates versus atelectasis. Left mid/lower zone and retrocardiac region opacification. Blunted left CP angle, representing pleural effusion. Heart and Mediastinum: Heart size appears enlarged. No hilar or mediastinal lymphadenopathy. Bony Thorax: The bony thorax appears intact without fractures or deformities. Soft Tissues: Soft tissues overlying the chest wall are unremarkable. IMPRESSION: 1. Interval development of the right lower zone possible infiltrates versus atelectasis. 2. A mildly blunted left CP angle may represent a small pleural effusion(new). 3. Stable left mid/lower zone and retrocardiac region opacification, representing infective/inflammatory etiology. 4. Stable enlarged heart with the prominence of perihilar broncho-vascular markings probably due to pulmonary vascular congestion. 5. Clinical correlation is suggested. Electronically signed by Rachelle Boland 08-07-2024 02:09 AM Code Status & VTE Plan Code Status Full code VTE Prophylaxis Plan VTE Prophylaxis will be ordered: Yes PG Care Time/CCT Total # of Minutes Spent Total Time Spent with Patient: Total time spent is greater than 50% in coordination of care (as documented) at patient's floor/unit and/or counseling patient: Coding Level of Care Code 27121 INT INP/OBS CARE 375MIN Diagnoses Pneumonia involving right lung J18.9 Acute on chronic respiratory failure with hypoxia J96.21 COPD exacerbation J44.1 Type 2 diabetes mellitus with diabetic peripheral angiopathy and gangrene, with long-term current use of insulin E11.52; Z79.4 Diabetes mellitus rodent exterminator insulin use: with rodent exterminator use Diabetes mellitus complication status: with circulatory complication Acute kidney injury N17.9 (4) Type 2 diabetes mellitus Diabetes mellitus penitentiary insulin use: with rodent exterminator use Diabetes mellitus complication status: with circulatory complication Qualified Code(s): E11.52 - Type 2 diabetes mellitus with diabetic peripheral angiopathy with gangrene; Z79.4 - superintendent [employer] (current) use of insulin
[2024-08-07] MEDS: cefTRIAXone SODIUM 2,000 MG/50 ML BAG IV STA (03:58)
[2024-08-07] MEDS: SODIUM CHLORIDE 0.9% 1,000 ML IV SCH (03:58)
[2024-08-07] MEDS ORDERED: GLUCAGON FOR INJ 1 MG VIAL SQ PRN (04:04)
[2024-08-07] MEDS ORDERED: GLUCOSE 40% GEL 15 GM TUBE PO PRN (04:04)
[2024-08-07] MEDS ORDERED: GLUCOSE 10 TAB/TUBE PO PRN (04:04)
[2024-08-07] MEDS ORDERED: CARBOHYDRATES FOR HYPOGLYCEMIA PO PRN (04:04)
[2024-08-07] MEDS ORDERED: DEXTROSE 50% 50 ML SYRINGE IV PRN (04:04)
[2024-08-07 05:07] LABS: Chol HDL Ratio 2.8 (0-5)
--- NOTE | 2024-08-07 05:07 | Emergency Department Note ---
Impression & Plan CHF (congestive heart failure), Weight gain Admit to the [facility] ED Provider Note NAME: LILLIAM SAEED AGE: 69 SEX: Male INFORMANT: Patient ED PROVIDER(S): Magalis Bender DO CHIEF COMPLAINT: Shortness of breath; lab abnormality PLAN: Disposition: Admit to the [facility] MEDICAL DECISION MAKING: this is a 69-year-old male patient with a history of COPD chronically on 5 L of oxygen who presents to the emergency department with increasing shortness of breath. Patient's family explains that he was at the PCP office 4 days ago where they did laboratory studies and he was told today that they were abnormal and that he should come to the emergency department. It seems that the patient had an elevated creatinine and BNP greater than 2000. Patient does admit to retaining fluid with an enlarged abdomen and edematous left leg. Laboratory studies reveal white blood cell count of 11.0 and hemoglobin of 10 which is normal for this patient. BUN of 51 and creatinine of 1.5 which are elevated for the patient. Troponin was slightly elevated at 22.5 which is baseline for this patient. Chest x-ray was performed and shows significant cardiomegaly and evidence of congestive heart failure. Patient is hypoxic on 5 L of O2 by nasal cannula. O2 was bumped up to 6 L to maintain sats above 88%. I discussed the case with the patient's family who is at the bedside. They explained that the patient's PCP has been making adjustments to his medications in an effort to address increasing fluid overload and worsening kidney function but overall situation has declined. Care/management discussed with: server manager, patient's family, and [facility] Triage Nursing notes: reviewed and agree with them. Vital Si hypertension gns: reviewed and remarkable for no significant abnormalities Additional History obtained from: Family members at the bedside Chronic Medical/Social Conditions affecting care: COPD and CHF Prior/ Outside/ External records reviewed: Outside medical records from [facility] medicine Differential Diagnosis: COPD exacerbation, CHF, pneumonia, cardiac ischemia, cardiac dysrhythmia Diagnostics, independently interpreted by me: ECG: normal sinus rhythm at a rate of 88 with a right bundle branch block. There is T wave inversion in the anterior and lateral leads. This is unchanged from previous EKGs. No acute signs of ischemia Cardiac Monitoring: normal sinus rhythm at a rate of 76 Imaging studies: portable chest x-ray: Significant cardiomegaly and congestive heart failure as per my independent interpretation HPI: 69 year old Male arrives for evaluation of shortness of breath and lab abnormality. Patient's family explains that he was at the PCP office 4 days ago where they did laboratory studies and he was told today that they were abnormal and that he should come to the emergency department. It seems that the patient had an elevated creatinine and BNP greater than 2000. PAST MEDICAL HISTORY: See Below, PAST SURGICAL HISTORY: See Below, SOCIAL HISTORY: See Below, HOME MEDICATIONS: see list ALLERGIES: see list VITALS: See Below PHYSICAL EXAMINATION: HEENT: Head - normocephalic and atraumatic. Pupils are equal, round, and reactive to light. Extraocular eye muscles are intact, and sclera are anicteric. Nose - moist nasal mucosa without discharge. Mouth - moist buccal mucosa. Oropharynx is nonerythematous and there is no tonsillar exudate or edema noted. Neck: Supple; no JVD, nuchal rigidity, cervical lymphadenopathy, or auscultated bruits. Heart: Regular rate and rhythm. There is a normal S1 and S2 with no murmurs, clicks, or gallops appreciated. Lungs: Absent breath sounds in the left lower lung. Decreased/diminished breath sounds in all other lung maria Abdomen: Significantly distended and protuberant. There is no guarding, rigidity, or rebound noted. Extremities: Left lower [id number]+ pitting edema. Right lower extremity-AKA Skin: warm and dry with good turgor and no rashes. Emergency Department course: The patient was evaluated in room C-2. A complete history and physical was performed. An order was placed for continuous cardiac monitoring. Patient was in a normal sinus rhythm at a rate of 76. A twelve- lead EKG was obtained as described above. A portable chest x-ray was performed. Patient's supplemental oxygen was increased. I discussed the case with the patient's family who had outside labs from [facility] which we reviewed. I discussed the case with the [facility] Hospitalist and they will evaluate for further inpatient care. Past Med/Surg History Problem List (Updated 08/07/24 @ 16:17 by Magalis Bender DO) Weight gain (Acute) CHF (congestive heart failure) (Acute) Acute kidney injury COPD exacerbation Acute on chronic respiratory failure with hypoxia Pneumonia involving right lung Pulmonary edema (Acute) Chronic hypoxemic respiratory failure (Acute) (HFpEF) heart failure with preserved ejection fraction Pulmonary hypertension Ex-smoker Pulmonary nodule S/P below knee amputation Endotracheally intubated RVF (right ventricular failure) Acute and chronic respiratory failure Pressure ulcer of right foot, unstageable Ischemic foot CHF (congestive heart failure) COPD (chronic obstructive pulmonary disease) Acute hyperglycemia (Acute) Acute hyponatremia (Acute) Cellulitis of foot, right (Acute) PAD (peripheral artery disease) (Acute) Occlusion of right popliteal artery (Acute) CKD (chronic kidney disease) stage 2, GFR 60-89 ml/min DVT prophylaxis BETTE (obstructive sleep apnea) Type 2 diabetes mellitus Coronary artery disease (Acute) Hypertension Abnormal pulmonary finding Abnormal chest CT Acute respiratory failure with hypoxia Pneumonia Hypoxia (Acute) Mucus plugging of bronchi (Acute) Medical History Gangrene due to arterial insufficiency Septic shock Pulmonary hypertension Hyperlipidemia Family History Other Family history non-contributory Social History Smoking Status: Former smoker Tobacco Type: Cigarettes Cigarettes Per Day: na; Second Hand Exposure: No; Do You Dip or Chew Tobacco: No; Hx Alcohol Use: Yes (occasional) Alcohol type: other Hx Substance Use: Yes (occasionally) Last Used Substance Other:: na Substance Use Type Other:: na Preferred Language: Bahraini Communication Ability: Effective Construction Recruiter Required: No Beliefs That Will Affect Care: None Current Living Situation: Family Current Living Situation Comment: with son and daughter inlaw How many Children do You have: 5 Feels Safe at Home: Yes Assistive Devices: Cane and Oxygen - at Night Allergies Allergies Allergy/AdvReac Type Severity Reaction Status Date / Time empagliflozin Allergy Intermediate Nausea, Verified 05/10/24 16:21 [From Jardiance] Dizziness nitroglycerin Allergy Intermediate Unknown - Unverified 05/10/24 16:17 Was just told to not take it as precaution Home Meds Home Medications Medication Instructions Recorded Confirmed aspirin 81 mg chewable tablet 81 mg PO DAILY 08/07/24 08/07/24 (Children's Aspirin) cilostazol 100 mg tablet 100 mg PO BID 08/07/24 08/07/24 clopidogrel 75 mg tablet 75 mg PO DAILY 08/07/24 08/07/24 furosemide 40 mg tablet 40 mg PO BID 08/07/24 08/07/24 glipizide 5 mg tablet 5 mg PO BID 08/07/24 08/07/24 insulin glargine 100 unit/mL (3 50 unit subcut BID 08/07/24 08/07/24 mL) subcutaneous pen (Lantus Solostar U-100 Insulin) lisinopril 30 mg tablet 30 mg PO DAILY 08/07/24 08/07/24 metformin 1,000 mg tablet 1,000 mg PO BID 08/07/24 08/07/24 metoprolol succinate 50 mg 50 mg PO DAILY 08/07/24 08/07/24 tablet,extended release 24 hr nortriptyline 25 mg capsule 25 mg PO HS 08/07/24 08/07/24 omeprazole 40 mg capsule,delayed 40 mg PO DAILY 08/07/24 08/07/24 release rosuvastatin 10 mg tablet 10 mg PO DAILY 08/07/24 08/07/24 Results & Data (ED) Vital Signs Vital Signs - 24 hr 08/06/24 23:07 08/06/24 23:07 08/06/24 23:24 Temperature 36.6 C Temperature Source Temporal Artery Scan Pulse Rate 106 H 88 Pulse Rate [Apical] Pulse Rate from SpO2 Sensor Respiratory Rate 22 Respiratory Effort / Characteristics Non-Labored Spontaneous Respiratory Depth Normal Respiratory Pattern Regular Blood Pressure 143/97 H Blood Pressure [Right Arm] Blood Pressure Mean 112 Blood Pressure Mean [Right Arm] Blood Pressure Position Sitting Blood Pressure Position [Right Arm] Pulse Oximetry 93 Oxygen Delivery Method Nasal Cannula Nasal Cannula Oxygen Flow Rate 5 5 Sepsis Recent Fever Within 48 Hours No Sepsis New/Unexplained Change in Mental Status No Sepsis Action Taken by Nursing No Action Required 08/06/24 23:25 08/06/24 23:25 08/06/24 23:59 Temperature Temperature Source Pulse Rate 97 H Pulse Rate [Apical] 84 Pulse Rate from SpO2 Sensor Respiratory Rate 18 18 Respiratory Effort / Characteristics Spontaneous Respiratory Depth Respiratory Pattern Blood Pressure Blood Pressure [Right Arm] 124/81 Blood Pressure Mean Blood Pressure Mean [Right Arm] 95 Blood Pressure Position Blood Pressure Position [Right Arm] Lying Pulse Oximetry 98 98 98 Oxygen Delivery Method Room Air Nasal Cannula Nasal Cannula Oxygen Flow Rate 5 5 Sepsis Recent Fever Within 48 Hours Sepsis New/Unexplained Change in Mental Status Sepsis Action Taken by Nursing 08/07/24 00:06 08/07/24 00:39 08/07/24 01:03 Temperature Temperature Source Pulse Rate 83 82 85 Pulse Rate [Apical] Pulse Rate from SpO2 Sensor 83 91 H Respiratory Rate 14 17 16 Respiratory Effort / Characteristics Respiratory Depth Respiratory Pattern Blood Pressure Blood Pressure [Right Arm] Blood Pressure Mean Blood Pressure Mean [Right Arm] Blood Pressure Position Blood Pressure Position [Right Arm] Pulse Oximetry 96 93 Oxygen Delivery Method Oxygen Flow Rate Sepsis Recent Fever Within 48 Hours Sepsis New/Unexplained Change in Mental Status Sepsis Action Taken by Nursing 08/07/24 01:07 Temperature Temperature Source Pulse Rate Pulse Rate [Apical] 89 Pulse Rate from SpO2 Sensor Respiratory Rate 18 Respiratory Effort / Characteristics Spontaneous Respiratory Depth Respiratory Pattern Blood Pressure Blood Pressure [Right Arm] 125/83 Blood Pressure Mean Blood Pressure Mean [Right Arm] 97 Blood Pressure Position Blood Pressure Position [Right Arm] Lying Pulse Oximetry 94 Oxygen Delivery Method Nasal Cannula Oxygen Flow Rate 5 Sepsis Recent Fever Within 48 Hours Sepsis New/Unexplained Change in Mental Status Sepsis Action Taken by Nursing Laboratory Data 08/07/24 00:09 08/07/24 00:09 Lab Results 08/07/24 08/07/24 08/07/24 Range/Units 00:09 01:59 02:39 WBC 11.02 H (4.8-10.8) K/ul RBC 4.33 L (4.70-6.10) M/uL Hgb 10.0 L (14.0-18.0) g/dl Hct 36.1 L (42.0-52.0) % MCV 83.4 (80.0-100.0) fL MCH 23.1 L (25.0-34.0) pg MCHC 27.7 L (32.0-36.0) g/dL RDW Std Deviation 56.4 H (36.4-46.3) fL RDW Coeff of Larry 18.7 H (11.5-14.5) % Plt Count 300 (130-400) K/uL MPV 11.1 (9.4-12.4) fL Immature Gran % (Auto) 0.3 % Neut % (Auto) 68.9 % Lymph % (Auto) 16.2 % Elmore % (Auto) 9.2 % Eos % (Auto) 4.7 % Baso % (Auto) 0.7 % Neut # (Auto) 7.59 H (1.40-6.50) K/uL Lymph # (Auto) 1.79 (1.20-3.40) K/uL Elmore # (Auto) 1.01 H (0.11-0.59) K/uL Eos # (Auto) 0.52 H (0.00-0.50) K/uL Baso # (Auto) 0.08 (0.00-0.20) K/uL Immature Gran # (Auto) 0.03 (0.01-0.20) K/uL Sodium 139 (136-145) mmol/L Potassium 4.9 (3.5-5.1) mmol/L Chloride 95 L (98-107) mmol/L Carbon Dioxide 40 H (21-32) mmol/L Anion Gap 4 (3-11) BUN 51 H (6-23) mg/dl Creatinine 1.57 H (0.6-1.4) mg/dl Est Cr Clr Drug Dosing 55.4 ml/min eGFR 47.42 BUN/Creatinine Ratio 32.5 H (10-20) Glucose 93 (70-99(Fasting)) mg/dl POC Glucose 84 (70-99) mg/dl Estimat Average Glucose 126 mg/dl Hemoglobin A1c 6.0 H (4.5-5.6) % Calcium 9.3 (8.6-10.3) mg/dl Total Bilirubin 0.6 (0.2-1.0) mg/dl AST 18 (13-39) U/L ALT 7 (7-52) U/L Alkaline Phosphatase 66 (34-104) U/L Troponin I High Sens 22.5 H 21.6 H (0-20) pg/ml Total Protein 6.8 (6.0-8.3) gm/dl Albumin 4.1 (3.4-5.0) gm/dl Globulin 2.7 (2.5-4.0) gm/dl Albumin/Globulin Ratio 1.5 (0.9-2) Triglycerides 99 (0-150) mg/dl Cholesterol 66 (0-200) mg/dl LDL Cholesterol, Calc 22 mg/dl VLDL Cholesterol, Calc 20 (0-30) mg/dl HDL Cholesterol 24 mg/dl Cholesterol/HDL Ratio 2.8 (0-5) Procalcitonin 0.04 (0-0.5) ng/ml Administered Medications Aspirin (Aspirin 81 Mg Ectab) 81 mg PO QAM [facility] Stop: 09/06/24 08:59 Last Admin: 08/07/24 09:12 Dose: 81 mg Documented By: CHACORTA Clopidogrel Bisulfate (Clopidogrel Bisulfate 75 Mg Tab) 75 mg PO QAM [facility] Stop: 09/06/24 08:59 Last Admin: 08/07/24 09:12 Dose: 75 mg Documented By: CHACORTA Guaifenesin (Guaifenesin 600 Mg Tabcr) 1,200 mg PO Q12 [facility] Stop: 09/06/24 08:59 Last Admin: 08/07/24 09:13 Dose: 1,200 mg Documented By: CHACORTA Azithromycin 500 mg/ Sodium (Chloride) 255 mls @ 127.5 mls/hr IV Q24H [facility] Stop: 08/12/24 05:59 Last Infusion: 08/07/24 07:33 Dose: Infused Documented By: Admin: 08/07/24 05:33 Dose: 127.5 mls/hr Documented By: DAPHNEY Methylprednisolone 60 mg/ (Syringe) 0.96 mls @ 1.5 mls/min IV BID [facility] Stop: 09/06/24 08:14 Last Admin: 08/07/24 08:48 Dose: Not Given Documented By: CHACORTA Insulin Aspart (Insulin Aspart Per Unit Charge) 0 units SC ACHS [facility] Stop: 09/06/24 07:29 Last Admin: 08/07/24 11:16 Dose: Not Given Documented By: Admin: 08/07/24 09:42 Dose: 1 units Documented By: CHACORTA Co-signed By: Insulin Glargine (Lantus Per Unit Charge) 30 units SC BID [facility] Stop: 09/06/24 08:59 Last Admin: 08/07/24 09:13 Dose: 30 units Documented By: CHACORTA Co-signed By: SHANIQUA Metoprolol Succinate (Metoprolol Succ 25mg Ext Rel Tab) 25 mg PO DAILY [facility] Stop: 09/06/24 08:59 Last Admin: 08/07/24 08:05 Dose: Not Given Documented By: CHACORTA Pantoprazole Sodium (Pantoprazole 40 Mg Tab) 40 mg PO QAM [facility] Stop: 09/06/24 08:59 Last Admin: 08/07/24 09:13 Dose: 40 mg Documented By: CHACORTA Rosuvastatin Calcium (Rosuvastatin Calcium 10 Mg Tab) 10 mg PO DAILY [facility] Stop: 09/06/24 09:14 Last Admin: 08/07/24 09:45 Dose: 10 mg Documented By: CHACORTA Discontinued Medications Sodium Chloride (Nss) 1,000 mls @ 80 mls/hr IV .[id number] [facility] Stop: 08/07/24 15:29 Last Infusion: 08/07/24 11:16 Dose: Infused Documented By: Infusion: 08/07/24 11:16 Dose: 0 mls/hr Documented By: Infusion: 08/07/24 09:37 Dose: 0 mls/hr Documented By: Admin: 08/07/24 03:58 Dose: 80 mls/hr Documented By: DAMION Ceftriaxone Sodium (Rocephin) 2,000 mg in 50 mls @ 100 mls/hr IV NOW STA Stop: 08/07/24 04:13 Last Infusion: 08/07/24 05:45 Dose: Infused Documented By: Admin: 08/07/24 03:58 Dose: 100 mls/hr Documented By: DAMION Imaging Data Radiologist's Impression: Chest X-Ray 08/06/24 23:58 EXAM: XR chest 1V portable CLINICAL HISTORY: CHEST PAIN/ DYSPNEA. TECHNIQUE: An X-ray image of the chest is obtained in anteroposterior (AP) projection. COMPARISON: X-ray dated 05/10/2024. FINDINGS: Pulmonary Parenchyma: The prominence of perihilar broncho-vascular markings is probably due to pulmonary vascular congestion. Right lower zone possible infiltrates versus atelectasis. Left mid/lower zone and retrocardiac region opacification. Blunted left CP angle, representing pleural effusion. Heart and Mediastinum: Heart size appears enlarged. No hilar or mediastinal lymphadenopathy. Bony Thorax: The bony thorax appears intact without fractures or deformities. Soft Tissues: Soft tissues overlying the chest wall are unremarkable. IMPRESSION: 1. Interval development of the right lower zone possible infiltrates versus atelectasis. 2. A mildly blunted left CP angle may represent a small pleural effusion(new). 3. Stable left mid/lower zone and retrocardiac region opacification, representing infective/inflammatory etiology. 4. Stable enlarged heart with the prominence of perihilar broncho-vascular markings probably due to pulmonary vascular congestion. 5. Clinical correlation is suggested. Electronically signed by Rachelle Boland 08-07-2024 02:09 AM Discharge Plan Visit Data Chief Complaint: Cardiac Assessment Stated Complaint: CHF, KIDNEYS SHUTTING DOWN ED Provider: Magalis Bender Discharge Problem: CHF (congestive heart failure), Weight gain Patient Disposition: Admitted As Inpatient Discharge Instructions Interventions: ED Discharge Assessment Last Done: 08/07/24 13:05
[2024-08-07] MEDS: AZITHROMYCIN 500 MG in SODIUM CHLORIDE 0.9% 250 ML IV SCH (05:33)
[2024-08-07 07:49] LABS: Estimated Average Glucose 126 mg/dl
[2024-08-07 07:56] LABS: Appearance Urine Turbid (Clear); Bacteria Urine Automated 1+ (None Seen); Bilirubin Urine Negative (Negative); Blood Urine 2+ (Negative); Color Urine Yellow; Glucose Urine UA Negative (Negative); Hyaline Casts Urine Present /lpf (None Presnt); Ketones Urine Trace (Negative); Leukocyte Esterase Urine 3+ (Negative); Mucus Urine Present (None Prsent); Nitrite Urine Negative (Negative); Protein Urine 2+ (Negative); Specific Gravity Urine 1.018 (1.000-1.030); Urobilinogen Urine Negative (Negative); WBC Urine Automated >50 /hpf (0-5)
[2024-08-07] MEDS: METOPROLOL SUCC 25MG EXT REL TAB PO SCH (08:05)
[2024-08-07] MEDS ORDERED: methylPREDNISolone 125 MG/2 ML VIAL IV SCH (08:05)
[2024-08-07] MEDS: methylPREDNISolone 60 MG in SYRINGE 0 ML IV SCH (08:48)
[2024-08-07] MEDS ORDERED: LANTUS PER UNIT CHARGE SC SCH (09:00)
[2024-08-07] MEDS ORDERED: AZITHROMYCIN 500 MG VIAL IV SCH (09:00)
[2024-08-07 09:11] LABS: Adenovirus PCR Not Detected (NotDetected); Bordetella parapertussis PCR Not Detected (NotDetected); Bordetella pertussis PCR Not Detected (NotDetected); Chlamydia pneumoniae PCR Not Detected (NotDetected); Coronavirus 229E PCR Not Detected (NotDetected); Coronavirus CoV-2 (COVID19)PCR Not Detected (NotDetected); Coronavirus HKU1 PCR Not Detected (NotDetected); Coronavirus NL63 PCR Not Detected (NotDetected); Coronavirus OC43PCR Not Detected (NotDetected); Human Metapneumovirus PCR Not Detected (NotDetected); Influenza A PCR Not Detected (NotDetected); Influenza B PCR Not Detected (NotDetected); Mycoplasma pneumoniae PCR Not Detected (NotDetected); Parainfluenza Virus 1 PCR Not Detected (NotDetected); Parainfluenza Virus 2 PCR Not Detected (NotDetected); Parainfluenza Virus 3 PCR Not Detected (NotDetected); Parainfluenza Virus 4 PCR Not Detected (NotDetected); Respiratory Syncytial VirusPCR Not Detected (NotDetected); Rhinovirus/Enterovirus PCR Not Detected (NotDetected)
--- NOTE | 2024-08-07 09:11 | History & Physical Bridge Note ---
Date of Service August 07, 2024 History & Physical Bridge Note I have examined the patient, reviewed the History & Physical and in the interval since the performance of the History & Physical I have noted the following changes of clinical significance: BPs were noted to be low this morning and patient receiving 1 L of normal saline at 80 mL/h but has evidence of pleural effusions and CHF as well as possible pneumonia on chest x-ray. He reports some productive cough and general feeling of shortness of breath. Reports he gained 43 pounds in 3 weeks after being weighed on a scale at his doctor's office the other day. He has noticed some increased leg swelling. He appears comfortable and is on 6 L oxygen via facemask and normally is on 5 L at home Vitals reviewed Gen: AAOx3, NAD, morbidly obese, speech is very difficult to understand HEENT: Anicteric sclerae, EOMI CV: RRR no mgr nl S1S2 Pulm: Decreased breath sounds and some crackles at the bases, no respiratory distress Abd: +BS soft NT obese Ext: Right BKA with well-healed incision, left leg with 1+ pitting edema Skin: No rashes, warm/dry This patient is a 69-year-old male with history of HFpEF, right-sided heart failure, pulmonary HTN, DM2, COPD on chronic 5 LNC O2, PAD, untreated BETTE, CAD, HTN, here with increasing shortness of breath, slightly worse hypoxemia, possibly with pneumonia versus heart failure. Also with mild acute kidney injury and UTI. He certainly hypervolemic on clinical exam and based on chest x-ray, however with blood pressures in the 80s over 60s he is intravascularly volume depleted likely from receiving subcutaneous furosemide once weekly over the last 3 weeks as per my discussion with his call center receptionist, Dr. Shaniqua Bravo of [facility]. She is faxing over her latest office visit note to the hospitalist fax machine for review. Discontinue IV fluids being given Some of his soft blood pressures may be from relative adrenal insufficiency as he does have COPD and has likely been on steroids in the last couple of months I checked a BNP which was mildly elevated 173 but may be underestimated because he is obese Checked procalcitonin which is negative, however he does not have sepsis and this really is only valuable in the setting of pneumonia with sepsis. Does not completely rule out bacterial pneumonia Check to [employer] respiratory viral panel which is negative #COPD exacerbation/possible pneumonia/acute on chronic HFpEF with right-sided heart failure Start IV steroids for COPD exacerbation Solu-Medrol 60 Mg IV twice daily His weight is up 11 kg-suspect possible heart failure exacerbation but given low blood pressures, I will hold off on diuretics at this time. Will discontinue IV fluids and likely restart home diuretics tomorrow if renal function improved For low BPs, hold metoprolol this morning. Already holding home Lasix, lisinopril for MADID Follow BMP in the morning Continue ceftriaxone azithromycin Continue supplemental O2
[2024-08-07] MEDS: CLOPIDOGREL BISULFATE 75 MG TAB PO SCH (09:12)
[2024-08-07] MEDS: ASPIRIN 81 MG ECTAB PO SCH (09:12)
[2024-08-07] MEDS: PANTOprazole 40 MG TAB PO SCH (09:13)
[2024-08-07] MEDS: LANTUS PER UNIT CHARGE SC SCH (09:13)
[2024-08-07] MEDS: guaiFENesin 600 MG TABCR PO SCH (09:13)
[2024-08-07] MEDS: INSULIN ASPART PER UNIT CHARGE SC SCH (09:42)
[2024-08-07] MEDS: ROSUVASTATIN CALCIUM 10 MG TAB PO SCH (09:45)
--- NOTE | 2024-08-07 10:12 | Electrocardiogram Report ---
Test Reason : Blood Pressure : */* mmHG Vent. Rate : 88 BPM Atrial Rate : 88 BPM P-R Int : 198 ms QRS Dur : 148 ms QT Int : 400 ms P-R-T Axes : 49 75 -23 degrees QTcB Int : 484 ms Normal sinus rhythm Right bundle branch block T wave abnormality, consider lateral ischemia Abnormal ECG When compared with ECG of 10-May-2024 13:11, No significant change was found Confirmed by Ivan Chi ([id number]) on 08/07/2024 10:12:06 AM Referred By: hSaniqua Bravo Confirmed By: Ivan Chi
--- NOTE | 2024-08-07 18:01 | Communication Note ---
Date of Service: August 07, [address] Galvin to see patient given RN reporting blurry vision. Assessed patient at bedside, he is lying in bed watching TV. States that he is currently seeing 2 TVs that blend together. States this happens last night and also happens at home. Does have glasses but seldom wears them. Does not think that they help. Denies lightheadedness/dizziness. Exam: No acute distress, lying in bed Neuro: no facial droop, no tongue deviation, EOMI, UE strength symmetrical, able to lift and resist movement of left LE. R LE s/p amputation. Resp: no accessory muscle use, oxymask in place Discussed with RN no recent medications given. BSG was in the 80s but patient has eaten since then. When trying to check extra-occular movements, patient states he only sees one finger infront of his face. Do not suspect patient is having TIA/stroke and this is chronic. At home spontaneously improves. Discussed with RN will continue to monitor for new symptoms.
[2024-08-07] MEDS: NORTRIPTYLINE HCL 25 MG CAP PO SCH (21:04)
[2024-08-08 06:17] LABS: Basophils # (auto) 0.02 K/uL (0.00-0.20); Basophils % (auto) 0.2 %; Eosinophils # (auto) 0.01 K/uL (0.00-0.50); Eosinophils % (auto) 0.1 %; Hematocrit (blood only) 36.4 % (42.0-52.0); Immature Granulocytes # (auto) 0.03 K/uL (0.01-0.20); Immature Granulocytes % (auto) 0.3 %; Lymphocytes # (auto) 0.83 K/uL (1.20-3.40); Lymphocytes % (auto) 8.4 %; Mean Corpuscular Hgb Conc 27.5 g/dL (32.0-36.0); Mean Corpuscular Volume 83.7 fL (80.0-100.0); Mean Platelet Volume 11.1 fL (9.4-12.4); Monocytes # (auto) 0.11 K/uL (0.11-0.59); Monocytes % (auto) 1.1 %; Neutrophils # (auto) 8.88 K/uL (1.40-6.50); Neutrophils % (auto) 89.9 %; Platelet Count 276 K/uL (130-400); RDW Coefficient of Variation 18.5 % (11.5-14.5); RDW Standard Deviation 55.8 fL (36.4-46.3); Red Blood Count 4.35 M/uL (4.70-6.10); White Blood Count 9.88 K/ul (4.8-10.8)
[2024-08-08 06:34] LABS: Calcium 9.4 mg/dl (8.6-10.3); Creatinine Clr Calc Pharmacy 55.5 ml/min
[2024-08-08] MEDS: cefTRIAXone SODIUM 2,000 MG/50 ML BAG IV SCH (06:38)
--- NOTE | 2024-08-08 09:10 | Hospitalist Progress Note ---
Date of Service August 08, 2024 Assessment & Plan (1) Acute kidney injury: (2) COPD exacerbation: (3) Acute on chronic respiratory failure with hypoxia: (4) Pneumonia involving right lung: Plan The patient is a 69-year-old male with a past medical history including chronic hypoxemic respiratory failure, HFpEF, pulm hypertension, bacteremia due to staph, COPD, PAD, BETTE, diabetes mellitus type 2, CAD, hypertension and history of pneumonia. He was referred to the emergency department after outpatient laboratories revealed elevated creatinine, and patient had complaint of shortness of breath. #Acute on chronic respiratory failure with hypoxia/COPD exacerbation/pneumonia involving right lower lobe- - Ceftriaxone 2 g IV every 24 hours - Azithromycin 500 mg IV daily - DuoNebs every 2 hours as needed - Guaifenesin 1200 mg p.o. every 12 hours - Chest x-ray with right lower lobe infiltrate - Nasal cannula oxygen, titrate to keep pulse ox 92-94% - exertional pulse ox while on WC #Acute kidney injury- - baseline Cr 1.14, on admission 1.57 --> 1.56 - Hold lisinopril and furosemide - on NSS at 80 mL/h x 1 L - trend Cr #Diabetes mellitus- - Hold glimepiride and metformin - Change glargine from 50 units to 30 units SQ twice daily - Place on Accu-Cheks with NovoLog SSI - Ha1c: 6 on admission #PAD/history left BKA- - Continue aspirin, Pletal, clopidogrel, nortriptyline #Hyperlipidemia- - Continue rosuvastatin - Check a fasting lipid panel #GERD- - Change omeprazole to pantoprazole per formulary interchange #Dispo- potential d/c in 24 - 48 hrs Admission and Anticipated Discharge Date Admission Date: August 07, 2024 Subjective No acute events overnight Currently states he is not back to baseline. He uses 5L oxygen at baseline but when he is pushing himself around in his wheelchair, he gets very short of breath Review of Systems Review of Systems: comprehensive ROS negative Physical Exam Physical Exam: Gen: NAD, lying in bed comfortable HEENT: NC/AT, MMM Lungs: diminished breath sounds, no expiratory wheezing noted CVS: s1s2 nl, RRR Abd: soft, NT, nl BS Ext: right BKA, LLE edema (pt states stable) Results & Data Results & Data Vital Signs (Past 12 Hours) Vital Signs Temp Pulse Pulse Resp BP Pulse Ox O2 Del Method 08/08/24 08:35 Nasal Cannula 08/08/24 07:45 36.7 C 88 18 96/74 L 96 Oxymask 08/08/24 02:50 36.9 C 90 20 123/78 93 Oxymask 08/07/24 23:00 91 H 08/07/24 22:57 36.5 C 92 H 18 123/80 95 Oxymask O2 Flow Rate 08/08/24 08:35 5 08/08/24 07:45 08/08/24 02:50 08/07/24 23:00 08/07/24 22:57 PG Care Time/CCT Total # of Minutes Spent Total Time Spent with Patient: Total time spent is greater than 50% in coordination of care (as documented) at patient's floor/unit and/or counseling patient: Coding Level of Care Code 99180 SUB INP/OBS CARE 3/50MIN Diagnoses Acute kidney injury N17.9 COPD exacerbation J44.1 Acute on chronic respiratory failure with hypoxia J96.21 Pneumonia involving right lung J18.9
--- NOTE | 2024-08-08 21:43 | Electrocardiogram Report ---
Test Reason : Blood Pressure : */* mmHG Vent. Rate : 96 BPM Atrial Rate : 96 BPM P-R Int : 200 ms QRS Dur : 150 ms QT Int : 394 ms P-R-T Axes : 51 73 29 degrees QTcB Int : 497 ms Normal sinus rhythm Right bundle branch block Abnormal ECG When compared with ECG of 06-Aug-2024 23:26, No significant change Confirmed by Lavell Cheng ([id number]) on 08/08/2024 9:43:06 PM Referred By: Shaniqua Bravo Confirmed By: Lavell Cheng
[2024-08-09] MEDS: ACETAMINOPHEN 325 MG TAB PO PRN (00:01)
[2024-08-09 06:34] LABS: Basophils # (auto) 0.01 K/uL (0.00-0.20); Basophils % (auto) 0.1 %; Eosinophils # (auto) 0.01 K/uL (0.00-0.50); Eosinophils % (auto) 0.1 %; Hemoglobin 10.2 g/dl (14.0-18.0); Immature Granulocytes # (auto) 0.08 K/uL (0.01-0.20); Immature Granulocytes % (auto) 0.7 %; Lymphocytes # (auto) 1.16 K/uL (1.20-3.40); Lymphocytes % (auto) 9.8 %; Mean Corpuscular Hemoglobin 22.7 pg (25.0-34.0); Mean Corpuscular Hgb Conc 27.6 g/dL (32.0-36.0); Mean Corpuscular Volume 82.4 fL (80.0-100.0); Mean Platelet Volume 11.2 fL (9.4-12.4); Monocytes # (auto) 0.57 K/uL (0.11-0.59); Monocytes % (auto) 4.8 %; Neutrophils # (auto) 9.95 K/uL (1.40-6.50); Neutrophils % (auto) 84.5 %; Platelet Count 294 K/uL (130-400); RDW Coefficient of Variation 18.6 % (11.5-14.5); RDW Standard Deviation 55.7 fL (36.4-46.3); Red Blood Count 4.49 M/uL (4.70-6.10); White Blood Count 11.78 K/ul (4.8-10.8)
[2024-08-09 06:55] LABS: Albumin Level 4.1 gm/dl (3.4-5.0); BUN Creatinine Ratio 39.4 (10-20); Calcium 9.4 mg/dl (8.6-10.3); Creatinine Clr Calc Pharmacy 68.2 ml/min; Phosphorus 4.4 mg/dl (2.5-4.9); Potassium 5.2 mmol/L (3.5-5.1)
--- NOTE | 2024-08-09 09:05 | Hospitalist Progress Note ---
Date of Service August 09, 2024 Assessment & Plan (1) Acute kidney injury: (2) COPD exacerbation: (3) Acute on chronic respiratory failure with hypoxia: (4) Pneumonia involving right lung: Plan The patient is a 69-year-old male with a past medical history including chronic hypoxemic respiratory failure, HFpEF, pulm hypertension, bacteremia due to staph, COPD, PAD, BETTE, diabetes mellitus type 2, CAD, hypertension and history of pneumonia. He was referred to the emergency department after outpatient laboratories revealed elevated creatinine, and patient had complaint of shortness of breath. #Acute on chronic respiratory failure with hypoxia/COPD exacerbation/pneumonia involving right lower lobe- - Ceftriaxone 2 g IV every 24 hours - Azithromycin 500 mg IV daily - DuoNebs every 2 hours as needed - Guaifenesin 1200 mg p.o. every 12 hours - Chest x-ray with right lower lobe infiltrate - Nasal cannula oxygen, titrate to keep pulse ox 92-94% - exertional pulse ox while on WC #Urinary retention - s/p straight cath today with 1600ml removed - UA sent - started on Tamsulosin - bowel regimen initiated - if persistent, will consider urology eval #Confusion - due to urinary retention, improved once straight cathed - currently with sitter #Acute kidney injury- - baseline Cr 1.14, on admission 1.57 --> 1.56 - Hold lisinopril and furosemide - on NSS at 80 mL/h x 1 L - trend Cr #Diabetes mellitus- - Hold glimepiride and metformin - Change glargine from 50 units to 30 units SQ twice daily - Place on Accu-Cheks with NovoLog SSI - Ha1c: 6 on admission #PAD/history left BKA- - Continue aspirin, Pletal, clopidogrel, nortriptyline #Hyperlipidemia- - Continue rosuvastatin - Check a fasting lipid panel #GERD- - Change omeprazole to pantoprazole per formulary interchange #Dispo- d/c pending improvement of mental status, mobilization pulse ox, resolution of urinary retention Admission and Anticipated Discharge Date Admission Date: August 07, 2024 Subjective Pt became confused overnight and restless This morning RN bladder scanned him, which showed urinary retention. Straight cath removed 1600ml Currently, pt more restful and sleeping comfortably Review of Systems Review of Systems: comprehensive ROS negative Physical Exam Physical Exam: Gen: NAD, lying in bed comfortable HEENT: NC/AT, MMM Lungs: breath sounds significantly improved compared to yesterday CVS: s1s2 nl, RRR Abd: soft, NT, nl BS Ext: right BKA, minimal LLE edema (pt states stable) Results & Data Results & Data Vital Signs (Past 12 Hours) Vital Signs Temp Pulse Pulse Resp BP Pulse Ox O2 Del Method 08/09/24 07:45 36.4 C L 84 16 154/98 H 92 Nasal Cannula 08/09/24 02:20 36.4 C L 84 18 142/96 H 96 Nasal Cannula 08/08/24 22:45 87 18 157/97 H 92 Nasal Cannula 08/08/24 21:43 83 O2 Flow Rate 08/09/24 07:45 08/09/24 02:20 4 08/08/24 22:45 4 08/08/24 21:43 PG Care Time/CCT Total # of Minutes Spent Total Time Spent with Patient: Total time spent is greater than 50% in coordination of care (as documented) at patient's floor/unit and/or counseling patient: Coding Level of Care Code 51924 SUB INP/OBS CARE 3/50MIN Diagnoses Acute kidney injury N17.9 COPD exacerbation J44.1 Acute on chronic respiratory failure with hypoxia J96.21 Pneumonia involving right lung J18.9
[2024-08-09 10:30] LABS: Appearance Urine Turbid (Clear); Bacteria Urine Automated None Seen (None Seen); Bilirubin Urine Negative (Negative); Blood Urine 1+ (Negative); Cast Urine Automated 0-2 /lpf (0-2); Color Urine Yellow; Epithelial Cell Urine Auto 0-2 /hpf (0-2); Glucose Urine UA Trace (Negative); Ketones Urine Negative (Negative); Leukocyte Esterase Urine 3+ (Negative); Nitrite Urine Negative (Negative); Protein Urine 1+ (Negative); RBC Urine Automated 0-2 /hpf (0-2); Specific Gravity Urine 1.018 (1.000-1.030); Urobilinogen Urine Negative (Negative); WBC Urine Automated >50 /hpf (0-5); pH Urine 5.5 (4.5-7.5)
[2024-08-09] MEDS: bisacodyL 10 MG SUPP PR STA (11:02)
[2024-08-09] MEDS: TAMSULOSIN HCL 0.4 MG CAP PO SCH (11:02)
[2024-08-09] MEDS: DOCUSATE SODIUM/SENNA 50/8.6MG TAB PO SCH (11:03)
--- NOTE | 2024-08-09 14:07 | Electrocardiogram Report ---
Test Reason : Blood Pressure : */* mmHG Vent. Rate : 84 BPM Atrial Rate : 84 BPM P-R Int : 200 ms QRS Dur : 156 ms QT Int : 412 ms P-R-T Axes : 54 110 38 degrees QTcB Int : 486 ms Normal sinus rhythm Right bundle branch block Abnormal ECG When compared with ECG of 08-Aug-2024 05:03, No significant change was found Confirmed by Ivan Chi ([id number]) on 08/09/2024 2:07:02 PM Referred By: Shaniqua Bravo Confirmed By: Ivan Chi
[2024-08-10] MEDS: AZITHROMYCIN 250 MG TAB PO SCH (06:09)
[2024-08-10 06:59] LABS: Basophils # (auto) 0.01 K/uL (0.00-0.20); Basophils % (auto) 0.1 %; Eosinophils # (auto) 0.06 K/uL (0.00-0.50); Eosinophils % (auto) 0.6 %; Hematocrit (blood only) 34.2 % (42.0-52.0); Hemoglobin 9.5 g/dl (14.0-18.0); Immature Granulocytes # (auto) 0.04 K/uL (0.01-0.20); Immature Granulocytes % (auto) 0.4 %; Lymphocytes # (auto) 0.94 K/uL (1.20-3.40); Lymphocytes % (auto) 9.8 %; Mean Corpuscular Hemoglobin 22.9 pg (25.0-34.0); Mean Corpuscular Hgb Conc 27.8 g/dL (32.0-36.0); Mean Corpuscular Volume 82.6 fL (80.0-100.0); Mean Platelet Volume 10.8 fL (9.4-12.4); Monocytes # (auto) 0.64 K/uL (0.11-0.59); Monocytes % (auto) 6.6 %; Neutrophils # (auto) 7.95 K/uL (1.40-6.50); Neutrophils % (auto) 82.5 %; Platelet Count 257 K/uL (130-400); RDW Coefficient of Variation 18.5 % (11.5-14.5); RDW Standard Deviation 55.2 fL (36.4-46.3); Red Blood Count 4.14 M/uL (4.70-6.10); White Blood Count 9.64 K/ul (4.8-10.8)
[2024-08-10 07:28] LABS: BUN Creatinine Ratio 34.5 (10-20); Calcium 9.4 mg/dl (8.6-10.3); Creatinine Clr Calc Pharmacy 76.7 ml/min; Magnesium 2.1 mg/dl (1.7-2.4); Phosphorus 4.2 mg/dl (2.5-4.9); Potassium 4.9 mmol/L (3.5-5.1)
--- NOTE | 2024-08-10 08:17 | Hospitalist Progress Note ---
Date of Service August 10, 2024 Assessment & Plan (1) Acute kidney injury: (2) COPD exacerbation: (3) Acute on chronic respiratory failure with hypoxia: (4) Pneumonia involving right lung: Plan The patient is a 69-year-old male with a past medical history including chronic hypoxemic respiratory failure, HFpEF, pulm hypertension, bacteremia due to staph, COPD, PAD, BETTE, diabetes mellitus type 2, CAD, hypertension and history of pneumonia. He was referred to the emergency department after outpatient laboratories revealed elevated creatinine, and patient had complaint of shortness of breath. #Acute on chronic respiratory failure with hypoxia/COPD exacerbation/pneumonia involving right lower lobe- - Ceftriaxone 2 g IV every 24 hours - Azithromycin 500 mg IV daily - DuoNebs every 2 hours as needed - Guaifenesin 1200 mg p.o. every 12 hours - Chest x-ray with right lower lobe infiltrate - Nasal cannula oxygen, titrate to keep pulse ox 92-94% - exertional pulse ox while on WC #Urinary retention #UTI - s/p straight cath today with 1600ml removed - UCx from admission showing E faecalis, ctx changed to augmentin, will treat for 7 days - started on Tamsulosin - bowel regimen initiated - if persistent, will consider urology eval #Confusion - due to urinary retention, improved once straight cathed - currently with sitter #Acute kidney injury- - baseline Cr 1.14, on admission 1.57 --> 1.56 --> 1.13 - resume lasix 40mg BID today, if renal fn stable tomorrow, resume lisinopril - s/p NSS at 80 mL/h x 1 L - trend Cr #Diabetes mellitus- - Hold glimepiride and metformin - Change glargine from 50 units to 35 units SQ twice daily - Place on Accu-Cheks with NovoLog SSI - Ha1c: 6 on admission #PAD/history left BKA- - Continue aspirin, Pletal, clopidogrel, nortriptyline #Hyperlipidemia- - Continue rosuvastatin #GERD- - Change omeprazole to pantoprazole per formulary interchange #Dispo- d/c pending mobilization pulse ox, PT/OT eval Admission and Anticipated Discharge Date Admission Date: August 07, 2024 Subjective Overnight pt refused straight cath and thus franco was placed Currently no new complaints Review of Systems Review of Systems: comprehensive ROS negative Physical Exam Physical Exam: Gen: NAD, lying in bed comfortable HEENT: NC/AT, MMM Lungs: breath sounds significantly improved compared to yesterday CVS: s1s2 nl, RRR Abd: soft, NT, nl BS Ext: right BKA, minimal LLE edema (pt states stable) Results & Data Results & Data Vital Signs (Past 12 Hours) Vital Signs Temp Pulse Pulse Resp BP Pulse Ox O2 Del Method 08/10/24 08:14 36.6 C 91 H 18 132/77 94 Nasal Cannula 08/10/24 02:20 36.9 C 80 16 130/86 92 Nasal Cannula 08/09/24 23:22 84 08/09/24 22:21 36.9 C 85 16 120/75 95 Nasal Cannula O2 Flow Rate 08/10/24 08:14 5 08/10/24 02:20 5 08/09/24 23:22 08/09/24 22:21 5 PG Care Time/CCT Total # of Minutes Spent Total Time Spent with Patient: Total time spent is greater than 50% in coordination of care (as documented) at patient's floor/unit and/or counseling patient: Coding Level of Care Code 15917 SUB INP/OBS CARE 3/50MIN Diagnoses Acute kidney injury N17.9 COPD exacerbation J44.1 Acute on chronic respiratory failure with hypoxia J96.21 Pneumonia involving right lung J18.9
[2024-08-10] MEDS: AMOXICILLIN/CLAVULANATE 875 MG TAB PO SCH (09:42)
[2024-08-10] MEDS: traMADol HCL 50 MG TABLET PO PRN (15:54)
[2024-08-10] MEDS: FUROSEMIDE 40 MG TAB PO SCH (16:51)
[2024-08-10] MEDS: LANTUS PER UNIT CHARGE SC SCH (22:34)
[2024-08-11 07:54] LABS: Hematocrit (blood only) 38.7 % (42.0-52.0); Hemoglobin 10.6 g/dl (14.0-18.0); Mean Corpuscular Hemoglobin 22.9 pg (25.0-34.0); Mean Corpuscular Hgb Conc 27.4 g/dL (32.0-36.0); Mean Corpuscular Volume 83.8 fL (80.0-100.0); Mean Platelet Volume 11.4 fL (9.4-12.4); Platelet Count 263 K/uL (130-400); RDW Coefficient of Variation 18.2 % (11.5-14.5); RDW Standard Deviation 55.1 fL (36.4-46.3); Red Blood Count 4.62 M/uL (4.70-6.10); White Blood Count 8.39 K/ul (4.8-10.8)
--- NOTE | 2024-08-11 08:35 | Hospitalist Progress Note ---
Date of Service August 11, 2024 Assessment & Plan (1) Acute kidney injury: (2) COPD exacerbation: (3) Acute on chronic respiratory failure with hypoxia: (4) Pneumonia involving right lung: Plan The patient is a 69-year-old male with a past medical history including chronic hypoxemic respiratory failure, HFpEF, pulm hypertension, bacteremia due to staph, COPD, PAD, BETTE, diabetes mellitus type 2, CAD, hypertension and history of pneumonia. He was referred to the emergency department after outpatient laboratories revealed elevated creatinine, and patient had complaint of shortness of breath. #Acute on chronic respiratory failure with hypoxia/COPD exacerbation/pneumonia involving right lower lobe- - Ceftriaxone 2 g IV every 24 hours (switched to augmentin for UTI management) - Azithromycin 500 mg IV daily - DuoNebs every 2 hours as needed - Guaifenesin 1200 mg p.o. every 12 hours - Chest x-ray with right lower lobe infiltrate - Nasal cannula oxygen, titrate to keep pulse ox 92-94% - exertional pulse ox while on WC #Urinary retention #UTI - s/p straight cath today with 1600ml removed - UCx from admission showing E faecalis, ctx changed to augmentin, will treat for 7 days - started on Tamsulosin - bowel regimen initiated - if persistent, will consider urology eval #Confusion - due to urinary retention, improved once straight cathed - currently with sitter #Acute kidney injury- - baseline Cr 1.14, on admission 1.57 --> 1.56 --> 1.13 - resume lasix 40mg BID today, if renal fn stable tomorrow, resume lisinopril - s/p NSS at 80 mL/h x 1 L - trend Cr #Diabetes mellitus- - Hold glimepiride and metformin - Change glargine from 50 units to 35 units SQ twice daily - Place on Accu-Cheks with NovoLog SSI - Ha1c: 6 on admission #PAD/history left BKA- - Continue aspirin, Pletal, clopidogrel, nortriptyline #Hyperlipidemia- - Continue rosuvastatin #GERD- - Change omeprazole to pantoprazole per formulary interchange #Dispo- d/c pending mobilization pulse ox, PT/OT eval Admission and Anticipated Discharge Date Admission Date: August 07, 2024 Subjective No acute events overnight Currently no new complaints Review of Systems Review of Systems: comprehensive ROS negative Physical Exam Physical Exam: Gen: NAD, lying in bed comfortable HEENT: NC/AT, MMM Lungs: breath sounds significantly improved compared to yesterday CVS: s1s2 nl, RRR Abd: soft, NT, nl BS Ext: right BKA, minimal LLE edema (pt states stable) Results & Data Results & Data Vital Signs (Past 12 Hours) Vital Signs Temp Pulse Pulse Resp BP Pulse Ox O2 Del Method 08/11/24 07:53 36.7 C 88 20 158/99 H 92 Nasal Cannula 08/11/24 03:00 36.6 C 76 18 143/83 H 94 Nasal Cannula 08/10/24 23:00 80 08/10/24 22:52 36.4 C L 82 20 119/76 94 Nasal Cannula O2 Flow Rate 08/11/24 07:53 08/11/24 03:00 5 08/10/24 23:00 08/10/24 22:52 5 PG Care Time/CCT Total # of Minutes Spent Total Time Spent with Patient: Total time spent is greater than 50% in coordination of care (as documented) at patient's floor/unit and/or counseling patient: Coding Level of Care Code 16426 SUB INP/OBS CARE 2/35MIN Diagnoses Acute kidney injury N17.9 COPD exacerbation J44.1 Acute on chronic respiratory failure with hypoxia J96.21 Pneumonia involving right lung J18.9
[2024-08-11 08:37] LABS: BUN Creatinine Ratio 32.5 (10-20); Magnesium 2.2 mg/dl (1.7-2.4); Potassium 4.9 mmol/L (3.5-5.1)
[2024-08-12 06:59] LABS: Hematocrit (blood only) 37.5 % (42.0-52.0); Hemoglobin 10.5 g/dl (14.0-18.0); Mean Corpuscular Volume 82.2 fL (80.0-100.0); Mean Platelet Volume 10.9 fL (9.4-12.4); Platelet Count 237 K/uL (130-400); RDW Coefficient of Variation 18.1 % (11.5-14.5); Red Blood Count 4.56 M/uL (4.70-6.10); White Blood Count 10.76 K/ul (4.8-10.8)
[2024-08-12 07:20] LABS: BUN Creatinine Ratio 42.2 (10-20); Calcium 9.6 mg/dl (8.6-10.3); Creatinine Clr Calc Pharmacy 96.6 ml/min; Magnesium 2.1 mg/dl (1.7-2.4); Phosphorus 4.1 mg/dl (2.5-4.9); Potassium 4.7 mmol/L (3.5-5.1)
--- NOTE | 2024-08-12 18:29 | Hospitalist Progress Note ---
Date of Service August 12, 2024 Assessment & Plan (1) Acute kidney injury: (2) COPD exacerbation: (3) Acute on chronic respiratory failure with hypoxia: (4) Pneumonia involving right lung: Plan The patient is a 69-year-old male with a past medical history including chronic hypoxemic respiratory failure, HFpEF, pulm hypertension, bacteremia due to staph, COPD, PAD, BETTE, diabetes mellitus type 2, CAD, hypertension and history of pneumonia. He was referred to the emergency department after outpatient laboratories revealed elevated creatinine, and patient had complaint of shortness of breath. #Acute on chronic respiratory failure with hypoxia/COPD exacerbation/pneumonia involving right lower lobe- - Ceftriaxone 2 g IV every 24 hours (switched to augmentin for UTI management) - Azithromycin 500 mg IV daily - DuoNebs every 2 hours as needed - Guaifenesin 1200 mg p.o. every 12 hours - Chest x-ray with right lower lobe infiltrate - Nasal cannula oxygen, titrate to keep pulse ox 88-92% - exertional pulse ox while on WC - 2-step completed on wheelchair- pt requires 4L at rest and 6L while using wheelchair #Urinary retention #UTI - s/p straight cath today with 1600ml removed - UCx from admission showing E faecalis, ctx changed to augmentin, will treat for 7 days - cont Tamsulosin - cont bowel regimen - pt currently has franco in place, will need outpatient Urology follow up in 7 to 10 days for voiding trial #Confusion - due to urinary retention, improved once straight cathed - currently has franco in place - pt also becomes confused when he is off of oxygen #Acute kidney injury- - baseline Cr 1.14, on admission 1.57 --> 1.56 --> 1.13 - resumed lasix 40mg BID today, if renal fn stable tomorrow, resume lisinopril - s/p NSS at 80 mL/h x 1 L - trend Cr #Elevated BiCarb - pt does have intermittently elevated bicarb - pt did get started on his home dose of lasix - if remains elevated, will consider acetazolamide #Diabetes mellitus- - Hold glimepiride and metformin - Change glargine from 50 units to 35 units SQ twice daily - Place on Accu-Cheks with NovoLog SSI - Ha1c: 6 on admission #PAD/history left BKA- - Continue aspirin, Pletal, clopidogrel, nortriptyline #Hyperlipidemia- - Continue rosuvastatin #GERD- - Change omeprazole to pantoprazole per formulary interchange #Dispo- pt can be discharged on 08/13 if he remains clinically stable 08/12: updated pt's daughter Admission and Anticipated Discharge Date Admission Date: August 07, 2024 Subjective No acute events overnight Currently no new complaints Review of Systems Review of Systems: comprehensive ROS negative Physical Exam Physical Exam: Gen: NAD, lying in bed comfortable HEENT: NC/AT, MMM Lungs: breath sounds significantly improved compared to yesterday CVS: s1s2 nl, RRR Abd: soft, NT, nl BS Ext: right BKA, minimal LLE edema (pt states stable) Results & Data Results & Data Vital Signs (Past 12 Hours) Vital Signs Temp Pulse Pulse Pulse Pulse Pulse Pulse 08/12/24 15:29 37.0 C 78 08/12/24 14:48 80 08/12/24 14:42 08/12/24 13:38 08/12/24 12:52 08/12/24 12:20 84 08/12/24 12:20 08/12/24 11:55 94 H 101 H 82 74 08/12/24 11:03 36.9 C 79 08/12/24 07:02 36.9 C 75 Resp Resp Resp Resp Resp BP Pulse Ox 08/12/24 15:29 18 129/76 94 08/12/24 14:48 08/12/24 14:42 08/12/24 13:38 92 08/12/24 12:52 08/12/24 12:20 08/12/24 12:20 08/12/24 11:55 20 20 18 18 08/12/24 11:03 20 133/84 92 08/12/24 07:02 20 142/87 H 91 Pulse Ox Pulse Ox Pulse Ox Pulse Ox Pulse Ox Pulse Ox Pulse Ox 08/12/24 15:29 08/12/24 14:48 08/12/24 14:42 08/12/24 13:38 08/12/24 12:52 93 93 92 08/12/24 12:20 08/12/24 12:20 08/12/24 11:55 86 L 91 91 84 L 08/12/24 11:03 08/12/24 07:02 O2 Del Method O2 Flow Rate O2 Flow Rate O2 Flow Rate O2 Flow Rate O2 Flow Rate O2 Flow Rate 08/12/24 15:29 Nasal Cannula 3 08/12/24 14:48 08/12/24 14:42 Oxymask 4 08/12/24 13:38 08/12/24 12:52 4 4 08/12/24 12:20 08/12/24 12:20 Nasal Cannula 4 08/12/24 11:55 4 6 4 08/12/24 11:03 Nasal Cannula 4 08/12/24 07:02 Nasal Cannula 4 O2 Flow Rate 08/12/24 15:29 08/12/24 14:48 08/12/24 14:42 08/12/24 13:38 08/12/24 12:52 6 08/12/24 12:20 08/12/24 12:20 08/12/24 11:55 08/12/24 11:03 08/12/24 07:02 PG Care Time/CCT Total # of Minutes Spent Total Time Spent with Patient: Total time spent is greater than 50% in coordination of care (as documented) at patient's floor/unit and/or counseling patient: Coding Level of Care Code 14285 SUB INP/OBS CARE 3/50MIN Diagnoses Acute kidney injury N17.9 COPD exacerbation J44.1 Acute on chronic respiratory failure with hypoxia J96.21 Pneumonia involving right lung J18.9
[2024-08-13 07:01] VITALS: O2SAT 95
[2024-08-13 08:02] LABS: Hematocrit (blood only) 37.7 % (42.0-52.0); Hemoglobin 10.5 g/dl (14.0-18.0); Mean Corpuscular Hemoglobin 22.6 pg (25.0-34.0); Mean Corpuscular Hgb Conc 27.9 g/dL (32.0-36.0); Mean Corpuscular Volume 81.3 fL (80.0-100.0); Mean Platelet Volume 10.7 fL (9.4-12.4); Platelet Count 216 K/uL (130-400); RDW Coefficient of Variation 17.7 % (11.5-14.5); RDW Standard Deviation 52.2 fL (36.4-46.3); Red Blood Count 4.64 M/uL (4.70-6.10); White Blood Count 11.14 K/ul (4.8-10.8)
[2024-08-13 08:32] LABS: BUN Creatinine Ratio 39.2 (10-20); Calcium 9.8 mg/dl (8.6-10.3); Creatinine Clr Calc Pharmacy 89.5 ml/min; Magnesium 2.1 mg/dl (1.7-2.4); Potassium 4.1 mmol/L (3.5-5.1)
[2024-08-13 10:53] VITALS: BP 149/85; RESP 20; TEMP 98.1
[2024-08-13 13:20] VITALS: PULSE 83
--- NOTE | 2024-08-13 14:11 | Discharge Summary ---
Date of Service August 13, 2024 Admission HPI Per Admitting Provider The patient is a 69-year-old male with a past medical history including chronic hypoxemic respiratory failure, HFpEF, pulm hypertension, bacteremia due to staph, COPD, PAD, BETTE, diabetes mellitus type 2, CAD, hypertension and history of pneumonia. He was referred to the emergency department after outpatient laboratories revealed elevated creatinine, and patient had complaint of shortness of breath. Admission Exam (Per Admitting) Constitutional The patient is awake, alert and oriented 3, well developed and well nourished, normocephalic and atraumatic, lying in bed and in no acute distress. HEENT--PERRL, EOMI, mucous membranes and oropharynx mildly dry Neck--supple. No JVD. No bruits. Thyroid normal, trachea midline, no adenopathy. Heart--normal S1 and S2. No murmurs, rubs or gallops. Lungs--clear bilaterally, no respiratory distress, no accessory muscle use. Abdomen--normal bowel sounds and soft. Extremities--no cyanosis or clubbing. No edema. Dermatologic--normal skin turgor, normal color, no abnormal lymph nodes, no rash. Neurologic--cranial nerves II through XII grossly intact. Rheumatologic--normal range of motion. Psychiatric--normal affect. Discharge Data Consultations 08/07/24 02:50 ED Decision to Admit Stat Hospital Course (1) Acute kidney injury: (2) COPD exacerbation: (3) Acute on chronic respiratory failure with hypoxia: (4) Pneumonia involving right lung: Plan The patient is a 69-year-old male with a past medical history including chronic hypoxemic respiratory failure, HFpEF, pulm hypertension, bacteremia due to staph, COPD, PAD, BETTE, diabetes mellitus type 2, CAD, hypertension and history of pneumonia. He was referred to the emergency department after outpatient laboratories revealed elevated creatinine, and patient had complaint of shortness of breath. #Acute on chronic respiratory failure with hypoxia/COPD exacerbation/pneumonia involving right lower lobe- - Ceftriaxone 2 g IV every 24 hours (switched to augmentin for UTI management) - Azithromycin 500 mg IV daily - DuoNebs every 2 hours as needed - Guaifenesin 1200 mg p.o. every 12 hours - Chest x-ray with right lower lobe infiltrate - Nasal cannula oxygen, titrate to keep pulse ox 88-92% - exertional pulse ox while on WC - 2-step completed on wheelchair- pt requires 4L at rest and 6L while using wheelchair #Urinary retention - resolved. he voided after franco removal #UTI - UCx from admission showing E faecalis, ctx changed to augmentin, will treat for 7 days - cont Tamsulosin - cont bowel regimen #Confusion -resolved - due to urinary retention, improved once straight cathed - currently has franco in place - pt also becomes confused when he is off of oxygen #Acute kidney injury- - baseline Cr 1.14, on admission 1.57 --> 1.56 --> 1.13 - resumed lasix 40mg BID today, if renal fn stable tomorrow, resume lisinopril - s/p NSS at 80 mL/h x 1 L - trend Cr #Elevated BiCarb - pt does have intermittently elevated bicarb - pt did get started on his home dose of lasix - if remains elevated, will consider acetazolamide #Diabetes mellitus- - Hold glimepiride and metformin - Change glargine from 50 units to 35 units SQ twice daily - Place on Accu-Cheks with NovoLog SSI - Ha1c: 6 on admission #PAD/history left BKA- - Continue aspirin, Pletal, clopidogrel, nortriptyline #Hyperlipidemia- - Continue rosuvastatin #GERD- - Change omeprazole to pantoprazole per formulary interchange #Dispo- pt can be discharged on 08/13 if he remains clinically stable Coding Level of Care Code 49190 INP/OBS DISCH >30 MIN Diagnoses Acute kidney injury N17.9 COPD exacerbation J44.1 Acute on chronic respiratory failure with hypoxia J96.21 Pneumonia involving right lung J18.9 Time Spent (min) 35
== END 2024-08-13 14:04 | disposition home health service (06) | DRG 193 ==
LOC: ED 23:07 → SUATTDRO 08-07 02:51 → EDINP 08-07 02:51 → 2S 08-07 13:42

== ENCOUNTER 2024-10-20 14:12 | Inpatient (IN) ==
--- OUTSIDE RECORDS SUMMARY | 2024-10-20 14:17 | External Medical Summary | Continuity of Care Document ---
Author Name Unknown Organization [facility] [address] [facility] Address [address] [place], [place] [id number] Care Team Providers Care Microphone Operator Name Role Phone Kayla Fernando Primary Care Physician [phone] [id number] Date(s): 08/17/24 - 08/17/[address], [address] [place] [address] [phone] Encounter Diagnosis Acute on chronic respiratory failure with hypoxia(Discharge Diagnosis) - 08/17/24 COPD exacerbation(Discharge Diagnosis) - 08/17/24 Right lower lobe pneumonia(Discharge Diagnosis) - 08/17/24 Urinary retention(Discharge Diagnosis) - 08/17/24 Urinary tract infection in male(Discharge Diagnosis) - 08/17/24 Confusion(Discharge Diagnosis) - 08/17/24 Acute kidney injury(Discharge Diagnosis) - 08/17/24 Type 2 diabetes mellitus with diabetic peripheral angiopathy and gangrene, with long-term current use of insulin(Discharge Diagnosis) - 08/17/24 Chronic diastolic (congestive) heart failure(Discharge Diagnosis) - 08/17/24 Acute and chronic respiratory failure with hypoxia(Final) - Discharge Disposition: Home or Self Care Attending Physician: LORENA Fernando Jessica A Allergies, Adverse Reactions, Alerts Substance Criticality Severity Reaction Reaction Severity Status Jardiance dizziness, nausea Ac tive Medications amoxicillin-clavulanate 875 mg-125 mg oral tablet TAKE 1 TABLET BY MOUTH TWICE DAILY WITH MEALS FOR 5 DAYS Start Date: 08/17/24 Status: Ordered aspirin 81 mg oral tablet, chewable Start: 06/24/20 1:08:00 PM EST, 1 tab, PO, Daily, Disp# 90 tab, Refills: 3, Pharmacy: [facility]/pharmacy #[id number] Start Date: 11/17/20 Status: Ordered BD needle Ultra-Fine Pen 29G x 0.5" Start: 11/02/22 1:45:00 PM EDT, See Instructions, Disp# 100 each, Refills: 5, Use as directed with insulin. Max ____/day. Use new pen needle with each injection., Pharmacy: [facility]/pharmacy #[id number] Start Date: 11/02/22 Status: Ordered BD needle Ultra-Fine Pen Etta 32G x 4mm Start: 12/11/21 9:41:00 AM EDT, See Instructions, Disp# 100 each, Refills: 3, To be used with insulininjections twice daily., Note to Pharmacy: ICD-10: E11.42, Pharmacy: [facility]/pharmacy #[id number] Start Date: 12/11/21 Status: Ordered cilostazol 100 mg oral tablet Start: 07/25/24 11:56:00 AM EST, 1 tab, PO, bid, Disp# 180 tab, Refills: 3, Pharmacy: [id number] Start Date: 07/25/24 Status: Ordered clopidogrel 75 mg oral tablet Start: 03/29/24 7:19:00 AM EDT, 1 tab, PO, Daily, Disp# 90 tab, Refills: 3, Pharmacy: [id number] Start Date: 03/29/24 Status: Ordered furosemide 40 mg oral tablet Start: 05/17/24 9:15:00 AM EDT, 1 tab, PO, bid, Disp# 90 tab, Refills: 3, IF WEIGHT INCREASES OVERNIGHT 2-3 POUNDS OR 4-5 POUNDS PER WEEK, TAKE 1 EXTRA TABLET, Pharmacy: [id number] Start Date: 05/17/24 Status: Ordered glipiZIDE 5 mg oral tablet Start: 12/26/23 7:14:00 AM EDT, 1 tab, PO, bid, Disp# 60 tab, Refills: 11, Pharmacy: [facility] Start Date: 12/26/23 Status: Ordered Lantus Solostar Pen 100 units/mL subcutaneous solution Start: 05/18/24 8:39:00 AM EDT, 50 unit =, subQ, bid, Disp# 10 mL, Refills: 11, Note to Pharmacy: SRIRAM, Pharmacy: [id number] Start Date: 05/18/24 Stop Date: 05/13/25 Status: Ordered lisinopril 30 mg oral tablet Start: 06/08/24 8:02:00 AM EDT, 1 tab, PO, Daily, Disp# 90 tab, Refills: 3, Pharmacy: [id number] Start Date: 06/08/24 Status: Ordered metFORMIN 1000 mg oral tablet Start: 01/23/24 9:41:00 AM EDT, 1 tab, PO, bid, Disp# 180 tab, Refills: 3, Pharmacy: [facility]7 Start Date: 01/23/24 Status: Ordered metoprolol succinate 50 mg oral tablet, extended release Start: 06/19/24 5:23:00 PM EST, 1 tab, PO, Daily Start Date: 06/19/24 Status: Ordered nortriptyline 25 mg oral capsule Start: 06/08/24 8:02:00 AM EDT, 1 cap, PO, qhs, Disp# 90 cap, Refills: 3, Pharmacy: [id number] Start Date: 06/08/24 Status: Ordered omeprazole 40 mg oral delayed release capsule Start: 06/19/24 5:23:00 PM EST, 1 cap, PO, Daily Start Date: 06/19/24 Status: Ordered One Touch Delica (33G) Lancets Start: 08/07/18 9:27:22 AM EST, See Instructions, Disp# 300 unit, Refills: 3, Test blood sugar before meals and at bedtime, [id number] Start Date: 08/07/18 Status: Ordered One Touch Delica Plus (30G) Lancets Start: 12/11/21 9:41:00 AM EDT, See Instructions, Disp# 300 each, Refills: 3, Use to test blood sugarTID. Dx Code E11.42, Pharmacy: [facility]/pharmacy #[id number] Start Date: 12/11/21 Status: Ordered One Touch Verio Glucose Monitor Start: 10/05/17 11:22:00 AM EST, See Instructions, Disp# 1 each, Test blood sugar before meals and at bedtime, Pharmacy: [facility] [place] Start Date: 10/05/17 Status: Ordered One Touch Verio Test Strips Start: 12/11/21 9:41:00 AM EDT, See Instructions, Disp# 300 each, Refills: 3, Use to test blood sugarthree times daily, Note to Pharmacy: ICD-10: E11.42, Pharmacy: [facility]/pharmacy #[id number] Start Date: 12/11/21 Status: Ordered rosuvastatin 10 mg oral tablet Start: 07/25/24 11:56:00 AM EST, 1 tab, PO, Daily, Disp# 90 tab, Refills: 3, Pharmacy: [facility] Start Date: 07/25/24 Status: Ordered Mental Status 08/17/24 Barriers to Learning one year None evide nt Mandatory Health Literacy Documentation Yes Health Literacy Communication Barriers N ever Primary Language Kosovan Problem List Condition Confirmation Course Effective Dates [...] exacerbation Confirmed Active Nonocclusive coronary atherosclerosis of [place] coronary artery Confirmed Active Diabetic peripheral neuropathy associated with type 2 diabetes mellitus Confirmed Active S/P BKA (below knee amputation) unilateral Confirmed Active Hyperlipidemia Confirmed Active HTN (hypertension) Confirmed Active Atherosclerosis of [place] arteries of extremities with intermittent claudication, bilateral [...] and vertebrobasilar stenosis, 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 Diagnosis Diagnosis Type Effective Dates Health Status Clinical Service Informant Acute on chronic respiratory failure with hypoxia Discharge Diagnosis 08/17/24 Non-Specified COPD exacerbation Discharge Diagnosis 08/17/24 Non-Specified Right lower lobe pneumonia Discharge Diagnosis 08/17/24 Non-Specified Urinary tract infection in male Discharge Diagnosis 08/17/24 Non-Specified Confusion Discharge Diagnosis 08/17/24 Non-Specified Acute kidney injury Discharge Diagnosis 08/17/24 Non-Specified Chronic diastolic (congestive) heart failure Discharge Diagnosis 08/17/24 Non-Specified Type 2 diabetes mellitus with diabetic peripheral angiopathy and gangrene, with long-term current use of insulin Discharge Diagnosis 08/17/24 Non-Specified Urinary retention Discharge Diagnosis 08/17/24 Non-Specified Procedures Procedure Date Related Diagnosis Body [...] Com pleted Cardiac catheterization 10/03/[address] om[address] [place] [address] [facility]: 1. Cardiomegaly without radiographic evidence of congestive failure 2. Right basiar opacities are similar to previous and likely represent scarring/atelectasis. Correlate clinically for evidence of a superimposed pneumonitis [facility] Impression: 1. No pulmonary emboli identified 2. Subsegmental bilateral atelectasis 3. No lymphadenopathy 5[facility] Impression: 1. No acute abnormality. incidental note is made of diverticulosis without diverticulitis 6[facility] Right 5th toe [facility] Impression: 1. No evidence of osteomyelitis or abscess [facility] Impression: 1. No focal cortical erosion/osteolysis or agressive periosteal reaction identified to suggest osteomyelitis. No fracture or bone lesion. Scattered ixzf-[id number] osteoarthritis. Plantar calcaneal spur. Achilles enthesophytes Results Laboratory List Name Date Complete Blood Count w Differential (CBC ,DIFFH) 08/17/24 Comprehensive Metabolic Panel (COMP META B PANEL) 08/17/24 Most recent to oldest [Reference Range]: 1 eGFR CKD-EPI [>60 mL/min/1.73 m2] >90 mL /min/1.73 m2 1 (08/17/24 8:50 AM) Hypochromia SLIGHT *Unknown* (08/17/24 8:50 AM) Ovalocytes FEW *Unknown* (08/17/24 8:50 AM) Polychromasia INCREASED *Unknown* (08/17/24 8:50 AM) Platelet Morphology NORMAL *Unknown* (08/17/24 8:50 AM) Estimated CrCl 102.99 mL/min (08/17/24 9:23 AM) MPV [9.0-12.2 fL] 12.7 fL *HI* (08/17/24 8:50 AM) Immature Gran% 0.0 % (08/17/24 8:50 AM) Neut% 75.9 % (08/17/24 8:50 AM) Lymph% 8.9 % (08/17/24 8:50 AM) [place]% 7.2 % (08/17/24 8:50 AM) Baso% 0.0 % (08/17/24 8:50 AM) Eos% 8.0 % (08/17/24 8:50 AM) Immat Gran, Abs [0.0-0.4 K/uL] 0.00 K/uL (08/17/24 8:50 AM) Neut, Abs [2.0-7.7 K/uL] 10.16 K/uL *HI* (08/17/24 8:50 AM) Lymph, Abs [1.0-3.4 K/uL] 1.19 K/uL (08/17/24 8:50 AM) [place], Abs [0-1.0 K/uL] 0.96 K/uL (08/17/24 8:50 AM) Baso, Abs [0-0.1 K/uL] 0.00 K/uL (08/17/24 8:50 AM) Eos, Abs [0-0.5 K/uL] 1.07 K/uL *HI* (08/17/24 8:50 AM) Type of Diff: MANUAL *Unknown* (08/17/24 8:50 AM) RDW [11.5-14.2 %] 18.3 % *HI* (08/17/24 8:50 AM) Anion Gap [5-14 mmol/L] 0 mmol/L *LOW* (08/17/24 8:50 AM) Alb [3.5-5.0 g/dL] 3.7 g/dL (08/17/24 8:50 AM) Alk Phos [38-126 unit/L] 69 unit/L (08/17/24 8:50 AM) ALT [<50 unit/L] 17 unit/L (08/17/24 8:50 AM) AST [15-46 unit/L] 20 unit/L (08/17/24 8:50 AM) BUN [7-20 mg/dL] 30 mg/dL *HI* (08/17/24 8:50 AM) Ca [8.4-10.2 mg/dL] 8.9 mg/dL (08/17/24 8:50 AM) Cl- [96-107 mmol/L] 98 mmol/L (08/17/24 8:50 AM) HCO3 [22-30 mmol/L] 40 mmol/L *HI* (08/17/24 8:50 AM) Cret [0.70-1.30 mg/dL] 0.81 mg/dL (08/17/24 8:50 AM) Glu [74-106 mg/dL] 214 mg/dL *HI* (08/17/24 8:50 AM) Hct [39-48 %] 39.6 % (08/17/24 8:50 AM) Hgb [13.0-17.0 g/dL] 10.7 g/dL *LOW* (08/17/24 8:50 AM) K [3.5-5.1 mmol/L] 4.3 mmol/L (08/17/24 8:50 AM) MCH [28-33 pg] 23.4 pg *LOW* (08/17/24 8:50 AM) MCHC [32-36 g/dL] 27.0 g/dL *LOW* (08/17/24 8:50 AM) MCV [81-96 fL] 86.5 fL (08/17/24 8:50 AM) Na [137-145 mmol/L] 138 mmol/L (08/17/24 8:50 AM) Plts [150-350 K/uL] 183 K/uL (08/17/24 8:50 AM) RBC [4.40-5.60 M/uL] 4.58 M/uL (08/17/24 8:50 AM) T Bili [0.2-1.3 mg/dL] 0.5 mg/dL (08/17/24 8:50 AM) Prot [6.3-8.2 g/dL] 6.4 g/dL (08/17/24 8:50 AM) WBC [4.0-10.4 K/uL] 13.38 K/uL *HI* (08/17/24 8:50 AM) 1Result Comment: Testing Performed By: Dept of Pathology [facility] Arlene Resendez, [address] [place] [id number] Vital Signs Most recent to oldest [Reference Range]: 1 Patient Weight 108.9 kg (08/17/24 8:01 AM) Temperature [36.5-37.9 DegC] 36.8 DegC (08/17/24 8:01 AM) Heart Rate 80 bpm (08/17/24 8:01 AM) Respiratory Rate 20 br/min (08/17/24 8:01 AM) Blood Pressure 90/62mmHg (08/17/24 8:01 AM) Cuff Pulse Pressure 28 mmHg (08/17/24 8:01 AM) BP Location # 1 Left Arm, Manual (08/17/24 8:01 AM) Social History Social History Type Response Tobacco Former smoker, Cigar ettes Smoking Status Former Smoker, quit > 1 yr Sex Male Sex Representation Male (finding) Patient Care team information Care Team Personnel Name: AUDREY Enrique Terra L Position: Nurse Pract - Vascular Surg Member Role: Lifetime Relationship Address: [address] [place] [address] [place] [address] [place] Name: Prasanna Wilson Catherine Position: Pharmacist Member Role: Pharmacy - Lifetime Address: [place] [address] [place] Name: LORENA Gaston Bridget M Position: Physician [place] Worker - Vascular Surg Member Role: Lifetime Relationship Address: [address] [place] [address] [place] Name: LORENA Horan Lynn Position: Physician [place] Worker Exempt - Vasc Surg Member Role: Lifetime Relationship Address: [address] [place] [address] [place] Name: Prasanna Denny Paula Position: Pharmacist Member Role: Pharmacy - Lifetime Address: [place] [address] [place] Name: LORENA Fernando Jessica A Position: Physician Asst Exmpt - Family Med Member Role: Primary Care Provider Address: [address] [place] [id number] [place] Care Team Related Persons Name: KAYLA SAEED Name: LILLIAM SAEED Name: KAYLA AU
--- OUTSIDE RECORDS SUMMARY | 2024-10-20 14:17 | External Medical Summary | Continuity of Care Document ---
Author Name Unknown Organization [address] Address [address] [place] [phone] Care Team Providers Care Program Director/Music Director Name Role Phone Kayla Fernando Primary Care Physician [phone] [id number] Date[facility]s): 09/05/24 - 09/05/[address], [address] [place] [address] [phone] Encounter Diagnosis Chronic diastolic (congestive) heart failure(Discharge Diagnosis) - 09/05/24 Chronic right-sided CHF (congestive heart failure)(Discharge Diagnosis) - 09/05/24 Pulmonary hypertension due to hypoxia(Discharge Diagnosis) - 09/05/24 Discharge Disposition: Home or Self Care Attending Physician: DO Bravo Michelle L Allergies, Adverse Reactions, Alerts Substance Criticality Severity Reaction Reaction Severity Status Jardiance dizziness, nausea Ac tive Medications aspirin 81 mg oral tablet, chewable Start: 06/24/20 1:08:00 PM EST, 1 tab, PO, Daily, Disp# 90 tab, Refills: 3, Pharmacy: [facility]/pharmacy #[id number] Start Date: 06/24/20 Status: Ordered BD needle Ultra-Fine Pen 29G x 0.5" Start: 11/02/22 1:45:00 PM EDT, See Instructions, Disp# 100 each, Refills: 5, Use as directed with insulin. Max ____/day. Use new pen needle with each injection., Pharmacy: [facility]/pharmacy #[id number] Start Date: 11/02/22 Status: Ordered BD needle Ultra-Fine Pen Etta 32G x 4mm Start: 12/11/21 9:41:00 AM EDT, See Instructions, Disp# 100 each, Refills: 3, To be used with insulininjections twice daily., Note to Pharmacy: ICD-10: E11.42, Pharmacy: [facility]/pharmacy #[id number] Start Date: 12/11/21 Status: Ordered cilostazol 100 mg oral tablet Start: 07/25/24 11:56:00 AM EST, 1 tab, PO, bid, Disp# 180 tab, Refills: 3, Pharm[facility] Start Date: 07/25/24 Status: Ordered clopidogrel 75 mg oral tablet Start: 03/29/24 7:19:00 AM EDT, 1 tab, PO, Daily, Disp# 90 tab, Refills: 3, Pharmacy: [facility] [id number] Start Date: 03/29/24 Status: Ordered furosemide 40 mg oral tablet Start: 05/17/24 9:15:00 AM EDT, 1 tab, PO, bid, Disp# 90 tab, Refills: 3, IF WEIGHT INCREASES OVERNIGHT 2-3 POUNDS OR 4-5 POUNDS PER WEEK, TAKE 1 EXTRA TABLET, Pharmacy: [facility] [id number] Start Date: 05/17/24 Status: Ordered glipiZIDE 5 mg oral tablet Start: 12/26/23 7:14:00 AM EDT, 1 tab, PO, bid, Disp# 60 tab, Refills: 11, Pharmacy: [facility] [address] Start Date: 12/26/23 Status: Ordered Lantus Solostar Pen 100 units/mL subcutaneous solution Start: 05/18/24 8:39:00 AM EDT, 50 unit =, subQ, bid, Disp# 10 mL, Refills: 11, Note to Pharmacy: SRIRAM, Pharmacy: [facility] [id number] Start Date: 05/18/24 Stop Date: 05/13/25 Status: Ordered lisinopril 30 mg oral tablet Start: 06/08/24 8:02:00 AM EDT, 1 tab, PO, Daily, Disp# 90 tab, Refills: 3, Pharmacy: [facility] [address] Start Date: 06/08/24 Status: Ordered metFORMIN 1000 mg oral tablet Start: 01/23/24 9:41:00 AM EDT, 1 tab, PO, bid, Disp# 180 tab, Refills: 3, Pharmacy: [facility] [address] Start Date: 01/23/24 Status: Ordered metoprolol succinate 50 mg oral tablet, extended release Start: 06/19/24 5:23:00 PM EST, 1 tab, PO, Daily Start Date: 06/19/24 Status: Ordered nortriptyline 25 mg oral capsule Start: 06/08/24 8:02:00 AM EDT, 1 cap, PO, qhs, Disp# 90 cap, Refills: 3, Pharmacy: [id number] Start Date: 06/08/24 Status: Ordered omeprazole 40 mg oral delayed release capsule Start: 06/19/24 5:23:00 PM EST, 1 cap, PO, Daily Start Date: 06/19/24 Status: Ordered One Touch Delica (33G) Lancets Start: 08/07/18 9:27:22 AM EST, See Instructions, Disp# 300 unit, Refills: 3, Test blood sugar before meals and at bedtime, Pharmacy: [facility]/pharmacy #[id number] Start Date: 08/07/18 Status: Ordered One Touch Delica Plus (30G) Lancets Start: 12/11/21 9:41:00 AM EDT, See Instructions, Disp# 300 each, Refills: 3, Use to test blood sugarTID. Dx Code E11.42, Pharmacy: [facility]/pharmacy #[id number] Start Date: 12/11/21 Status: Ordered One Touch Verio Glucose Monitor Start: 10/05/17 11:22:00 AM EST, See Instructions, Disp# 1 each, Test blood sugar before meals and at bedtime, Pharmacy: [facility] [place] Start Date: 10/05/17 Status: Ordered One Touch Verio Test Strips Start: 12/11/21 9:41:00 AM EDT, See Instructions, Disp# 300 each, Refills: 3, Use to test blood sugarthree times daily, Note to Pharmacy: ICD-10: E11.42, Pharmacy: [facility]/pharmacy #[id number] Start Date: 12/11/21 Status: Ordered rosuvastatin 10 mg oral tablet Start: 07/25/24 11:56:00 AM EST, 1 tab, PO, Daily, Disp# 90 tab, Refills: 3, Pharmacy: [id number] Start Date: 07/25/24 Status: Ordered Mental Status 09/05/24 Barriers to Learning one year None evide nt Mandatory Health Literacy Documentation Yes Health Literacy Communication Barriers N ever Primary Language Icelandic Problem List Condition Confirmation Course Effective Dates [...] exacerbation Confirmed Active Nonocclusive coronary atherosclerosis of [place] coronary artery Confirmed Active Diabetic peripheral neuropathy associated with type 2 diabetes mellitus Confirmed Active S/P BKA (below knee amputation) unilateral Confirmed Active Hyperlipidemia Confirmed Active HTN (hypertension) Confirmed Active Atherosclerosis of [place] arteries of extremities with intermittent claudication, bilateral [...] and vertebrobasilar stenosis, 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 Cardiomegaly without radiographic evidence of congestive failure 2. Right basiar opacities are similar to previous and likely represent scarring/atelectasis. Correlate clinically for evidence of a superimposed pneumonitis 4[facility] Impression: 1. No pulmonary emboli identified 2. Subsegmental bilateral atelectasis 3. No lymphadenopathy 5[facility] Impression: 1. No acute abnormality. incidental note is made of diverticulosis without diverticulitis [facility] Right 5th toe [facility] Impression: 1. No evidence of osteomyelitis or abscess [facility] Impression: 1. No focal cortical erosion/osteolysis or agressive periosteal reaction identified to suggest osteomyelitis. No fracture or bone lesion. Scattered cyrx-jr-oeinfjyr osteoarthritis. Plantar calcaneal spur. Achilles enthesophytes Vital Signs Most recent to oldest [Reference Range]: 1 Patient Weight 111.5 kg (09/05/24 1:56 PM) Heart Rate 87 bpm (09/05/24 1:56 PM) Blood Pressure 122/74mmHg (09/05/24 1:56 PM) Cuff Pulse Pressure 48 mmHg (09/05/24 1:56 PM) Social History Social History Type Response Tobacco Former smoker, Cigar ettes Smoking Status Former Smoker, quit > 1 yr Sex Male Sex Representation Male (finding) Patient Care team information Care Team Personnel Name: AUDREY Enrique Terra L Position: Nurse Pract - Vascular Surg Member Role: Lifetime Relationship Address: [address] [place] [address] [place] [address] [place] Name: Prasanna Wilson Catherine Position: Pharmacist Member Role: Pharmacy - Lifetime Address: [place] [address] [place] Name: LORENA Gaston Bridget M Position: Physician Liquified [employer] Specialist - Vascular Surg Member Role: Lifetime Relationship Address: [address] [place] [address] [place] Name: LORENA Horan Lynn Position: Physician Liquified Natural [employer] Specialist Exempt - Vasc Surg Member Role: Lifetime Relationship Address: [address] [place] [address] [place] Name: Prasanna Denny Paula Position: Pharmacist Member Role: Pharmacy - Lifetime Address: [place] [address] [place] Name: LORENA Fernando Jessica A Position: Physician Asst Exmpt - Family Med Member Role: Primary Care Provider Address: [address] [place] [address] [place] Care Team Related Persons Name: KAYLA SAEED Name: LILLIAM SAEED Name: KAYLA AU
[2024-10-20 14:47] LABS: Base Excess VBG 0.8 mEq/L; HCO3 VBG 28 mmol/L; Oxygen Saturation VBG < 60.0 %; PCO2 VBG 56 mmHg (38-50); PO2 VBG 24 mmHg; pH VBG 7.31 (7.36-7.41)
[2024-10-20 14:52] LABS: Basophils % (auto) 0.8 %; Eosinophils # (auto) 0.57 K/uL (0.00-0.50); Eosinophils % (auto) 4.7 %; Hematocrit (blood only) 37.5 % (42.0-52.0); Hemoglobin 10.5 g/dl (14.0-18.0); Immature Granulocytes # (auto) 0.04 K/uL (0.01-0.20); Immature Granulocytes % (auto) 0.3 %; Lymphocytes # (auto) 1.67 K/uL (1.20-3.40); Lymphocytes % (auto) 13.9 %; Mean Corpuscular Hemoglobin 22.5 pg (25.0-34.0); Mean Corpuscular Volume 80.5 fL (80.0-100.0); Mean Platelet Volume 11.2 fL (9.4-12.4); Monocytes # (auto) 0.97 K/uL (0.11-0.59); Neutrophils % (auto) 72.3 %; Platelet Count 346 K/uL (130-400); RDW Coefficient of Variation 18.6 % (11.5-14.5); RDW Standard Deviation 53.5 fL (36.4-46.3); Red Blood Count 4.66 M/uL (4.70-6.10); White Blood Count 12.05 K/ul (4.8-10.8)
--- NOTE | 2024-10-20 14:52 | Emergency Department Note ---
Impression & Plan RLL pneumonia, Acute dyspnea, Hypomagnesemia, Elevated brain natriuretic peptide (BNP) level, Hypoxia ED Provider Note HISTORY OF PRESENT ILLNESS: Patient is a 69-year-old male presenting with shortness of breath. Patient reports he has been having progressively worsening shortness of breath over the last 2 weeks. He states that he has been taking his Lasix twice daily as prescribed. He reports that today he was unable to get up out of his hospital bed and into his wheelchair to go to the bathroom without having to stop to catch his breath. He denies any fevers peer denies any cough. Denies any recent sick contact exposures. Denies any abdominal pain, nausea or vomiting. He is on a baby aspirin daily. Denies any DVT or PE history. Denies any history of cardiac stents. Denies any recent antibiotic or steroid use. ROS: as above PHYSICAL EXAM: Constitutional: Patient appears in no acute distress. HENT: Head: Normocephalic and atraumatic. Eyes: EOMI, PERRL Mouth/Throat: Mucous membranes moist. Neck: Trachea midline. Neck supple. Cardiovascular: RRR, No murmurs, rubs or gallops. Intact distal pulses. Pulmonary/Chest: No respiratory distress. Breath sounds clear and equal bilaterally. No wheezes or rales. On 4 L nasal cannula. Conversationally dyspneic. Abdominal: Abdomen soft, no tenderness, rebound or guarding. Musculoskeletal: Right BKA. Trace edema of the left lower extremity extending to the ankle. Skin: Warm and dry. No rash, erythema, pallor or cyanosis Psychiatric: Appropriate mood and affect for situation. Neurological: Alert and keenly responsive. CN II-XII grossly intact MDM: - Vitals signs stable - History obtained via patient. History as above. - Chronic conditions affecting care: HFpEF; pulmonary HTN; COPD (on 4L NC); PAD; BETTE; DM-2; CAD; HTN - Differential diagnoses include, but are not limited to: Congestive heart failure; acute coronary syndrome; COPD/asthma exacerbation; pulmonary edema; pulmonary embolism; pneumonia; pneumothorax; viral syndrome - Order placed for continuous cardiac monitoring. At this time, monitor showed rate of 85 bpm with normal sinus rhythm, per my interpretation. - External medical records reviewed. Discharge summary dated 08/13/2024 was reviewed. Patient was admitted at that time for acute kidney injury and the COPD exacerbation. Was also found to have pneumonia involving his right lung at that time. - EKG image interpreted by myself showed normal sinus rhythm. Rate 86 bpm. QT 390. No acute ischemic changes. Noted to have an intraventricular block. - Laboratory workup interpreted by myself showed leukocytosis (WBC 12.05); chronic anemia (Hgb 10.5); normal INR; stable electrolytes; hypomagnesemia (Mg 1.6); normal troponin; elevated BNP (204) - Viral respiratory panel negative - VBG showed slight respiratory acidosis with a pH of 7.31 and pCO2 of 56 mmHg - Patient is on a baseline 4 L nasal cannula. However, in the emergency department he is up to 6 L nasal cannula and having saturations of 88 to 89%. High flow nasal cannula was ordered. However, adjustments were made to the pulse oximeter for better readings and patient is noted to be saturating about 93% on 6 L nasal cannula. - CXR image reviewed myself showed a right lower lobe pneumonia, per my interpretation. Radiology notes a patchy right basilar pneumonia as well as a stable enlarged left hilum likely from pulmonary vasculature. - 2g IV rocephin and 100 mg PO doxycycline ordered for antibiotic therapy - Given 1g IV magnesium for electrolyte replacement - Discussion was had with case advocate about patient's case and need for admission - Hospitalist consulted for admission - [facility] ASSESSMENT AND PLAN: Diagnosis: Right lower lobe pneumonia; acute dyspnea; hypomagnesemia; elevated BNP; acute hypoxia Plan: Admit Past Med/Surg History Problem List (Updated 10/20/24 @ 15:52 by Janell Francisco MD) Hypoxia (Acute) Elevated brain natriuretic peptide (BNP) level (Acute) Hypomagnesemia (Acute) Acute dyspnea (Acute) RLL pneumonia (Acute) Weight gain (Acute) CHF (congestive heart failure) (Acute) Acute kidney injury COPD exacerbation Acute on chronic respiratory failure with hypoxia Pulmonary edema (Acute) Chronic hypoxemic respiratory failure (Acute) (HFpEF) heart failure with preserved ejection fraction Pulmonary hypertension Ex-smoker Pulmonary nodule S/P below knee amputation Endotracheally intubated RVF (right ventricular failure) Acute and chronic respiratory failure Pressure ulcer of right foot, unstageable Ischemic foot CHF (congestive heart failure) COPD (chronic obstructive pulmonary disease) Acute hyperglycemia (Acute) Acute hyponatremia (Acute) Cellulitis of foot, right (Acute) PAD (peripheral artery disease) (Acute) Occlusion of right popliteal artery (Acute) CKD (chronic kidney disease) stage 2, GFR 60-89 ml/min DVT prophylaxis BETTE (obstructive sleep apnea) Type 2 diabetes mellitus Coronary artery disease (Acute) Hypertension Abnormal pulmonary finding Abnormal chest CT Acute respiratory failure with hypoxia Pneumonia Hypoxia (Acute) Mucus plugging of bronchi (Acute) Medical History Gangrene due to arterial insufficiency Septic shock Pulmonary hypertension Hyperlipidemia Family History Other Family history non-contributory Social History Smoking Status: Never smoker Tobacco Type: Cigarettes Cigarettes Per Day: na; Second Hand Exposure: No; Do You Dip or Chew Tobacco: No; Hx Alcohol Use: Yes (occasional) Alcohol type: other Hx Substance Use: Yes (occasionally) Last Used Substance Other:: na Substance Use Type Other:: na Preferred Language: Spanish Communication Ability: Effective Charging Car Operator Required: No Beliefs That Will Affect Care: None Current Living Situation: Family Current Living Situation Comment: with son and daughter inlaw How many Children do You have: 5 Feels Safe at Home: Yes Assistive Devices: Oxygen - Continuous, Prosthesis and Wheelchair Allergies Allergies Allergy/AdvReac Type Severity Reaction Status Date / Time empagliflozin Allergy Intermediate Nausea, Verified 05/10/24 16:21 [From Jardiance] Dizziness nitroglycerin Allergy Intermediate Unknown - Unverified 05/10/24 16:17 Was just told to not take it as precaution Home Meds Home Medications Medication Instructions Recorded Confirmed aspirin 81 mg chewable tablet 81 mg PO DAILY 08/07/24 10/20/24 (Children's Aspirin) cilostazol 100 mg tablet 100 mg PO BID 08/07/24 10/20/24 clopidogrel 75 mg tablet 75 mg PO DAILY 08/07/24 10/20/24 furosemide 40 mg tablet 40 mg PO BID 08/07/24 10/20/24 glipizide 5 mg tablet 5 mg PO BID 08/07/24 10/20/24 insulin glargine 100 unit/mL (3 50 unit subcut BID 08/07/24 10/20/24 mL) subcutaneous pen (Lantus Solostar U-100 Insulin) lisinopril 30 mg tablet 30 mg PO UD 08/07/24 10/20/24 metformin 1,000 mg tablet 1,000 mg PO BID 08/07/24 10/20/24 metoprolol succinate 50 mg 50 mg PO DAILY 08/07/24 10/20/24 tablet,extended release 24 hr nortriptyline 25 mg capsule 25 mg PO HS 08/07/24 10/20/24 omeprazole 40 mg capsule,delayed 40 mg PO DAILY 08/07/24 10/20/24 release rosuvastatin 10 mg tablet 10 mg PO DAILY 08/07/24 10/20/24 Results & Data (ED) Vital Signs Vital Signs - 24 hr 10/20/24 14:15 10/20/24 14:30 10/20/24 14:30 Temperature 36 C L Temperature Source Temporal Artery Scan Pulse Rate 72 84 Pulse Rate [Finger] Pulse Rhythm Regular Respiratory Rate 22 24 Respiratory Effort / Characteristics Non-Labored Labored Respiratory Depth Normal Respiratory Pattern Regular Irregular Blood Pressure 114/76 Blood Pressure [Right Arm] Blood Pressure Mean 88 Blood Pressure Mean [Right Arm] Pulse Oximetry 92 94 Oxygen Delivery Method Nasal Cannula Nasal Cannula Nasal Cannula Oxygen Flow Rate 4 4 4 Sepsis Recent Fever Within 48 Hours No Sepsis New/Unexplained Change in Mental Status N/A Sepsis Action Taken by Nursing No Action Required 10/20/24 14:50 10/20/24 16:00 10/20/24 16:04 Temperature Temperature Source Pulse Rate 86 Pulse Rate [Finger] 84 Pulse Rhythm Respiratory Rate 18 Respiratory Effort / Characteristics Respiratory Depth Respiratory Pattern Blood Pressure Blood Pressure [Right Arm] 108/75 Blood Pressure Mean Blood Pressure Mean [Right Arm] 86 Pulse Oximetry 94 97 Oxygen Delivery Method Nasal Cannula Room Air Oxygen Flow Rate 4 Sepsis Recent Fever Within 48 Hours Sepsis New/Unexplained Change in Mental Status Sepsis Action Taken by Nursing Laboratory Data 10/20/24 14:37 10/20/24 14:37 Lab Results 10/20/24 10/20/24 Range/Units 14:33 14:37 WBC 12.05 H (4.8-10.8) K/ul RBC 4.66 L (4.70-6.10) M/uL Hgb 10.5 L (14.0-18.0) g/dl Hct 37.5 L (42.0-52.0) % MCV 80.5 (80.0-100.0) fL MCH 22.5 L (25.0-34.0) pg MCHC 28.0 L (32.0-36.0) g/dL RDW Std Deviation 53.5 H (36.4-46.3) fL RDW Coeff of Larry 18.6 H (11.5-14.5) % Plt Count 346 (130-400) K/uL MPV 11.2 (9.4-12.4) fL Immature Gran % (Auto) 0.3 % Neut % (Auto) 72.3 % Lymph % (Auto) 13.9 % Nuckolls % (Auto) 8.0 % Eos % (Auto) 4.7 % Baso % (Auto) 0.8 % Neut # (Auto) 8.70 H (1.40-6.50) K/uL Lymph # (Auto) 1.67 (1.20-3.40) K/uL Nuckolls # (Auto) 0.97 H (0.11-0.59) K/uL Eos # (Auto) 0.57 H (0.00-0.50) K/uL Baso # (Auto) 0.10 (0.00-0.20) K/uL Immature Gran # (Auto) 0.04 (0.01-0.20) K/uL PT 12.3 H (9.0-12.0) Seconds INR 1.1 (0.9-1.1) VBG pH 7.31 L (7.36-7.41) VBG pCO2 56 H (38-50) mmHg VBG pO2 24 mmHg VBG HCO3 28 mmol/L VBG O2 Saturation < 60.0 % VBG Base Excess 0.8 mEq/L Sodium 138 (136-145) mmol/L Potassium 5.0 (3.5-5.1) mmol/L Chloride 95 L (98-107) mmol/L Carbon Dioxide 40 H (21-32) mmol/L Anion Gap 3 (3-11) BUN 41 H (6-23) mg/dl Creatinine 1.36 (0.6-1.4) mg/dl Est Cr Clr Drug Dosing 57.6 ml/min eGFR 56.33 BUN/Creatinine Ratio 30.1 H (10-20) Glucose 96 (70-99(Fasting)) mg/dl Calcium 9.7 (8.6-10.3) mg/dl Magnesium 1.6 L (1.7-2.4) mg/dl Total Bilirubin 0.6 (0.2-1.0) mg/dl AST 16 (13-39) U/L ALT 6 L (7-52) U/L Alkaline Phosphatase 81 (34-104) U/L Troponin I High Sens 10.6 (0-20) pg/ml B-Natriuretic Peptide 204 H (0-100) pg/ml Total Protein 6.9 (6.0-8.3) gm/dl Albumin 4.3 (3.4-5.0) gm/dl Globulin 2.6 (2.5-4.0) gm/dl Albumin/Globulin Ratio 1.7 (0.9-2) Procalcitonin 0.06 (0-0.5) ng/ml Adenovirus (PCR) Not Detected (NotDetected) B. pertussis DNA (PCR) Not Detected (NotDetected) B.parapertussis DNA PCR Not Detected (NotDetected) C. pneumoniae DNA (PCR) Not Detected (NotDetected) Coronavirus OC43 (PCR) Not Detected (NotDetected) Coronavirus HKU1 (PCR) Not Detected (NotDetected) Coronavirus 229E (PCR) Not Detected (NotDetected) SARS-CoV-2 (PCR) Not Detected (NotDetected) Coronavirus NL63 (PCR) Not Detected (NotDetected) Human Metapneumovir PCR Not Detected (NotDetected) Influenza Type A (PCR) Not Detected (NotDetected) Influenza Type B (PCR) Not Detected (NotDetected) M. pneumoniae (PCR) Not Detected (NotDetected) Parainfluenza 1 (PCR) Not Detected (NotDetected) Parainfluenza 2 (PCR) Not Detected (NotDetected) Parainfluenza 3 (PCR) Not Detected (NotDetected) Parainfluenza 4 (PCR) Not Detected (NotDetected) RSV (PCR) Not Detected (NotDetected) Entero/Rhino (PCR) Not Detected (NotDetected) Administered Medications Discontinued Medications Doxycycline Hyclate (Doxycycline Hyclate 100 Mg Cap) 100 mg PO NOW STA Stop: 10/20/24 15:11 Last Admin: 10/20/24 15:29 Dose: 100 mg Documented By: MANNIE Magnesium Sulfate/Dextrose (Magnesium Sulfate / D5w) 1 gm in 100 mls @ 100 mls/hr IV NOW STA Stop: 10/20/24 16:09 Last Admin: 10/20/24 16:16 Dose: 100 mls/hr Documented By: MANNIE Ceftriaxone Sodium (Rocephin) 2,000 mg in 50 mls @ 100 mls/hr IV NOW STA Stop: 10/20/24 15:39 Last Infusion: 10/20/24 16:00 Dose: Infused Documented By: Admin: 10/20/24 15:29 Dose: 100 mls/hr Documented By: MANNIE Imaging Data Radiologist's Impression: Chest X-Ray 10/20/24 14:23 EXAM: Radiograph of the Chest 1 View INDICATION: Dyspnea TECHNIQUE: Frontal view of the chest. COMPARISON: 05/10/2024 FINDINGS: Lungs and pleural spaces: There is patchy infiltrate in the right lung base. No pleural effusion or pneumothorax. Stable enlarged left hilum. Heart: Stable large cardiac shadow. Mediastinum: Normal contour. Bones/joints: No fracture, erosion or dislocation. Soft tissues: No abnormality noted. No radiopaque foreign body noted. Upper abdomen: No abnormality noted. IMPRESSION: 1. Patchy right basilar pneumonia. 2. Stable enlarged left hilum likely pulmonary vasculature. IV contrast CT would better assess the left hilum if clinically warranted. Stability suggest a benign process. ACT 112: N/A Electronically signed by Mary Petty 10-20-2024 3:01 PM Discharge Plan Visit Data Chief Complaint: Shortness of Breath/Dyspnea Stated Complaint: SHORTNESS OB BREATH, WHEEZING, RETAINING FLUID ED Provider: Janell Francisco Discharge Problem: RLL pneumonia, Acute dyspnea, Hypomagnesemia, Elevated brain natriuretic peptide (BNP) level, Hypoxia Forms Stand Alone Forms: My [facility] [employer] Prescriptions Prescriptions: No Action metoprolol succinate 50 mg tablet extended release 24 hr 50 mg PO DAILY rosuvastatin 10 mg tablet 10 mg PO DAILY omeprazole 40 mg capsule,delayed release(DR/EC) 40 mg PO DAILY aspirin [Children's Aspirin] 81 mg Tablet,Chewable 81 mg PO DAILY Rx Instructions: otc unable to verify glipizide 5 mg tablet 5 mg PO BID metformin 1,000 mg tablet 1,000 mg PO BID cilostazol 100 mg tablet 100 mg PO BID lisinopril 30 mg Tablet 30 mg PO UD Rx Instructions: 30 mg po daily. last filled 04/21 90 day supply. Most recent fill was for 5mg daily filled 05/13 30 day supply and per family, they think thats the does he takes. furosemide 40 mg tablet 40 mg PO BID Rx Instructions: per daughter has been taking twice a day clopidogrel 75 mg tablet 75 mg PO DAILY nortriptyline 25 mg capsule 25 mg PO HS insulin glargine [Lantus Solostar U-100 Insulin] 100 unit/mL (3 mL) insulin pen 50 unit SUBCUT BID Referrals Referrals: Mckenna Fernando PA-C [Primary Care Provider] -
--- NOTE | 2024-10-20 15:06 | XRay Report ---
EXAM: Radiograph of the Chest 1 View INDICATION: Dyspnea TECHNIQUE: Frontal view of the chest. COMPARISON: 05/10/2024 FINDINGS: Lungs and pleural spaces: There is patchy infiltrate in the right lung base. No pleural effusion or pneumothorax. Stable enlarged left hilum. Heart: Stable large cardiac shadow. Mediastinum: Normal contour. Bones/joints: No fracture, erosion or dislocation. Soft tissues: No abnormality noted. No radiopaque foreign body noted. Upper abdomen: No abnormality noted. IMPRESSION: 1. Patchy right basilar pneumonia. 2. Stable enlarged left hilum likely pulmonary vasculature. IV contrast CT would better assess the left hilum if clinically warranted. Stability suggest a benign process. ACT 112: N/A Electronically signed by Mary Petty 10-20-2024 3:01 PM
[2024-10-20 15:07] LABS: Albumin Globulin Ratio 1.7 (0.9-2); Albumin Level 4.3 gm/dl (3.4-5.0); BUN Creatinine Ratio 30.1 (10-20); Bilirubin,Total 0.6 mg/dl (0.2-1.0); Calcium 9.7 mg/dl (8.6-10.3); Creatinine Clr Calc Pharmacy 57.6 ml/min; Globulin 2.6 gm/dl (2.5-4.0); Magnesium 1.6 mg/dl (1.7-2.4); Total Protein 6.9 gm/dl (6.0-8.3)
[2024-10-20 15:13] LABS: Troponin I High Sensitivity 10.6 pg/ml (0-20)
[2024-10-20 15:18] LABS: INR 1.1 (0.9-1.1); Prothrombin Time 12.3 Seconds (9.0-12.0)
[2024-10-20] MEDS: DOXYCYCLINE HYCLATE 100 MG CAP PO STA (15:29)
[2024-10-20] MEDS: cefTRIAXone SODIUM 2,000 MG/50 ML BAG IV STA (15:29)
[2024-10-20 15:34] LABS: Adenovirus PCR Not Detected (NotDetected); Bordetella parapertussis PCR Not Detected (NotDetected); Bordetella pertussis PCR Not Detected (NotDetected); Chlamydia pneumoniae PCR Not Detected (NotDetected); Coronavirus 229E PCR Not Detected (NotDetected); Coronavirus CoV-2 (COVID19)PCR Not Detected (NotDetected); Coronavirus HKU1 PCR Not Detected (NotDetected); Coronavirus NL63 PCR Not Detected (NotDetected); Coronavirus OC43PCR Not Detected (NotDetected); Human Metapneumovirus PCR Not Detected (NotDetected); Influenza A PCR Not Detected (NotDetected); Influenza B PCR Not Detected (NotDetected); Mycoplasma pneumoniae PCR Not Detected (NotDetected); Parainfluenza Virus 1 PCR Not Detected (NotDetected); Parainfluenza Virus 2 PCR Not Detected (NotDetected); Parainfluenza Virus 3 PCR Not Detected (NotDetected); Parainfluenza Virus 4 PCR Not Detected (NotDetected); Respiratory Syncytial VirusPCR Not Detected (NotDetected); Rhinovirus/Enterovirus PCR Not Detected (NotDetected)
[2024-10-20] MEDS: MAGNESIUM SULFATE / D5W 1 GM/100 ML BAG IV STA (16:16)
--- NOTE | 2024-10-20 16:18 | History & Physical Report ---
Date of Service October 20, 2024 Assessment & Plan (1) Acute on chronic respiratory failure with hypoxia: (2) Pneumonia: Plan Patient presented on 10/20 for worsening SOB began on Monday 10/16. Pneumonia on arrival. Coming in for acute on chronic hypoxic respiratory failure. #Pneumonia CXR revealed a right basilar pneumonia Chest CT with contrast ordered, pending Leukocytosis at 12.05 BioFire negative VB.31/56/24/28 Procalcitonin WNL Ceftriaxone 2000 mg IV q24h Doxycycline 100 mg p.o. BID Benzonatate TID PRN #Acute on chronic hypoxic respiratory failure Patient is on supplemental oxygen at baseline (4L NC) ABG ordered, pending He is requiring 10L oxy mask at time of admission; SpO2 94% Will trial patient on BiPAP Repeat ABG 2h after starting BiPAP Titrate supplemental oxygen as needed Continuous pulse oximetry #COPD Incentive spirometry, flutter valve DuoNeb as needed #Hypomagnesemia Mild; magnesium 1.6 Replete #Diabetes mellitus Last A1c at 6.0% on 08/07/2024 Patient is normally on Lantus 50u BID Dose reduced to Lantus 30u BID while hospitalized SSI with target BSG range 110-140mg/dL, CF 20, carb ratio 8 T2DM diet BSG ACHS Adjust regimen as needed Disposition: Admit to PCU telemetry DNR/DNI T2DM diet VTE PPx: Lovenox 40 mg SQ q24h History of Present Illness Chief Complaint: SOB/dyspnea Primary Care Provider: Mckenna Fernando PA-C Oliverio is a 69-year-old male with PMH of COPD, HFpEF, s/p BKA, right ventricular failure, PAD, CKD, T2DM, and BETTE. He presented on 10/20 for SOB, chest tightness, and wheezing. Patient's symptoms began on Monday 10/16 and have gradually worsened. Patient is on supplemental oxygen at baseline (4L NC). He endorses both SOB at rest and with exertion, as well as chest pressure/tightness. No prior history of DVT/PE. Patient is on aspirin for history of right foot amputation, and may have had stents placed at [facility] in 2018. Patient took his regular morning medicine today; no recent change in medication. He denies cough or sick contacts. Patient denies smoking, tobacco use, recent alcohol use. Patient's SpO2 is 97% on 6L NC. ED course: Ceftriaxone 2000 mg IV Doxycycline 100 mg p.o. Magnesium sulfate 1 g IV ROS: Patient endorses SOB at rest and with exertion, lightheadedness, MOORE, chest pressure/tightness, and chest palpitations. Patient denies fever, chills, night-sweats, dizziness, pleuritic CP, cough, hemoptysis, abdominal pain, N/V/D, burning with urination, blood in the urine/stool, or numbness/tingling in the arms or legs. Allergies Allergy/AdvReac Type Severity Reaction Status Date / Time empagliflozin Allergy Intermediate Nausea, Verified 05/10/24 16:21 [From Jardiance] Dizziness nitroglycerin Allergy Intermediate Unknown - Unverified 05/10/24 16:17 Was just told to not take it as precaution Home Medications Medication Instructions Recorded Confirmed Type aspirin 81 mg chewable tablet 81 mg PO DAILY 08/07/24 10/20/24 History (Children's Aspirin) cilostazol 100 mg tablet 100 mg PO BID 08/07/24 10/20/24 History clopidogrel 75 mg tablet 75 mg PO DAILY 08/07/24 10/20/24 History furosemide 40 mg tablet 40 mg PO BID 08/07/24 10/20/24 History glipizide 5 mg tablet 5 mg PO BID 08/07/24 10/20/24 History insulin glargine 100 unit/mL (3 50 unit subcut BID 08/07/24 10/20/24 History mL) subcutaneous pen (Lantus Solostar U-100 Insulin) lisinopril 30 mg tablet 30 mg PO UD 08/07/24 10/20/24 History metformin 1,000 mg tablet 1,000 mg PO BID 08/07/24 10/20/24 History metoprolol succinate 50 mg 50 mg PO DAILY 08/07/24 10/20/24 History tablet,extended release 24 hr nortriptyline 25 mg capsule 25 mg PO HS 08/07/24 10/20/24 History omeprazole 40 mg capsule,delayed 40 mg PO DAILY 08/07/24 10/20/24 History release rosuvastatin 10 mg tablet 10 mg PO DAILY 08/07/24 10/20/24 History Past Med/Surg History Problem List (Updated 03/15/25 @ 15:52 by Janell Francisco MD) Hypoxia (Acute) Elevated brain natriuretic peptide (BNP) level (Acute) Hypomagnesemia (Acute) Acute dyspnea (Acute) RLL pneumonia (Acute) Weight gain (Acute) CHF (congestive heart failure) (Acute) Acute kidney injury COPD exacerbation Acute on chronic respiratory failure with hypoxia Pulmonary edema (Acute) Chronic hypoxemic respiratory failure (Acute) (HFpEF) heart failure with preserved ejection fraction Pulmonary hypertension Ex-smoker Pulmonary nodule S/P below knee amputation Endotracheally intubated RVF (right ventricular failure) Acute and chronic respiratory failure Pressure ulcer of right foot, unstageable Ischemic foot CHF (congestive heart failure) COPD (chronic obstructive pulmonary disease) Acute hyperglycemia (Acute) Acute hyponatremia (Acute) Cellulitis of foot, right (Acute) PAD (peripheral artery disease) (Acute) Occlusion of right popliteal artery (Acute) CKD (chronic kidney disease) stage 2, GFR 60-89 ml/min DVT prophylaxis BETTE (obstructive sleep apnea) Type 2 diabetes mellitus Coronary artery disease (Acute) Hypertension Abnormal pulmonary finding Abnormal chest CT Acute respiratory failure with hypoxia Pneumonia Hypoxia (Acute) Mucus plugging of bronchi (Acute) Medical History Gangrene due to arterial insufficiency Septic shock Pulmonary hypertension Hyperlipidemia Family History Other Family history non-contributory Social History Smoking Status: Never smoker Tobacco Type: Cigarettes Cigarettes Per Day: na; Second Hand Exposure: No; Do You Dip or Chew Tobacco: No; Hx Alcohol Use: Yes (occasional) Alcohol type: other Hx Substance Use: Yes (occasionally) Last Used Substance Other:: na Substance Use Type Other:: na Preferred Language: Vincentian Communication Ability: Effective Retail Marketing Coordinator Required: No Beliefs That Will Affect Care: None Current Living Situation: Family Current Living Situation Comment: with son and daughter inlaw How many Children do You have: 5 Feels Safe at Home: Yes Assistive Devices: Oxygen - Continuous, Prosthesis and Wheelchair Review of Systems Review of Systems: See HPI above Physical Exam Physical Exam: General: no acute distress; non-toxic appearing; well-nourished; cooperative; SpO2 94% on 10L oxy mask HEENT: normocephalic, atraumatic; no scleral icterus; PERRLA; vision and hearing intact Neck: supple; no lymphadenopathy; trachea midline Skin: Cyanotic lips; warm, dry without signs of tenting; no rashes, bruising, lesions, or erythema noted CV: chest wall NTP; RRR; S1/S2 normal; no murmurs/rubs/gallops; pulses intact and symmetric at radial, DP, and PT Lungs: no acute respiratory distress; symmetrical chest wall expansion; clear breath sounds across all lung maria w/o adventitious sounds; no wheezing ABD: Soft, NTP; BS present; no rebound/guarding; no distention MSK: no tics or fasciculations; no edema noted in the LEs b/l, nonerythematous Neuro: A&Ox3; normal mood and affect; fluent speech; no focal deficits; sensation grossly intact in the LEs b/l Results & Data Results & Data Vital Signs (Past 12 Hours) Vital Signs Temp Pulse Pulse Resp BP BP Pulse Ox 10/20/24 16:04 86 10/20/24 16:00 84 18 108/75 97 10/20/24 14:50 94 10/20/24 14:30 84 24 94 10/20/24 14:30 10/20/24 14:15 36 C L 72 22 114/76 92 O2 Del Method O2 Flow Rate 10/20/24 16:04 10/20/24 16:00 Room Air 10/20/24 14:50 Nasal Cannula 4 10/20/24 14:30 Nasal Cannula 4 10/20/24 14:30 Nasal Cannula 4 10/20/24 14:15 Nasal Cannula 4 Laboratory Results Abnormal lab results 10/20/24 Range/Units 14:37 WBC 12.05 H (4.8-10.8) K/ul RBC 4.66 L (4.70-6.10) M/uL Hgb 10.5 L (14.0-18.0) g/dl Hct 37.5 L (42.0-52.0) % MCH 22.5 L (25.0-34.0) pg MCHC 28.0 L (32.0-36.0) g/dL RDW Std Deviation 53.5 H (36.4-46.3) fL RDW Coeff of Larry 18.6 H (11.5-14.5) % Neut # (Auto) 8.70 H (1.40-6.50) K/uL [place] # (Auto) 0.97 H (0.11-0.59) K/uL Eos # (Auto) 0.57 H (0.00-0.50) K/uL PT 12.3 H (9.0-12.0) Seconds VBG pH 7.31 L (7.36-7.41) VBG pCO2 56 H (38-50) mmHg Chloride 95 L (98-107) mmol/L Carbon Dioxide 40 H (21-32) mmol/L BUN 41 H (6-23) mg/dl BUN/Creatinine Ratio 30.1 H (10-20) Magnesium 1.6 L (1.7-2.4) mg/dl ALT 6 L (7-52) U/L B-Natriuretic Peptide 204 H (0-100) pg/ml Diagnostic Findings Chest X-Ray 10/20/24 14:23 EXAM: Radiograph of the Chest 1 View INDICATION: Dyspnea TECHNIQUE: Frontal view of the chest. COMPARISON: 05/10/2024 FINDINGS: Lungs and pleural spaces: There is patchy infiltrate in the right lung base. No pleural effusion or pneumothorax. Stable enlarged left hilum. Heart: Stable large cardiac shadow. Mediastinum: Normal contour. Bones/joints: No fracture, erosion or dislocation. Soft tissues: No abnormality noted. No radiopaque foreign body noted. Upper abdomen: No abnormality noted. IMPRESSION: 1. Patchy right basilar pneumonia. 2. Stable enlarged left hilum likely pulmonary vasculature. IV contrast CT would better assess the left hilum if clinically warranted. Stability suggest a benign process. ACT 112: N/A Electronically signed by Mary Petty 10-20-2024 3:01 PM ECG Additional Comments: ECG revealed sinus rhythm with first-degree AV block at 86 bpm; QTc 466 Code Status & VTE Plan Code Status DNR/DNI (confirmed with both patient and patient's son/medical POA at bedside). Supervising Physician Co-Signing Physician Notes I personally examined the patient and verified all perez points of history and exam, discussed case, and agree with decision making with Maurilio SALGADO short of breath - mostly chronic but about 2 days acute. when i asked when his breathing got bad he noted "2 years ago" - but then clarifying he's had about 1- 2 days of cough and wheeze. has BETTE but refuses bipap- is somewhat difficult to understand due to thick speech commesurate wtih his upper airway resistance but in even mentioning bipap he goes into a very animated rant that seems to en compass not liking the mask, having trouble wtih pressures, and feeling blown off by home health, and culminating with saying something along the lines of "i threw that thing out the door" and notes / son later notes repeated refusals for any management of BETTE/OHS. vitals noted fatigued on oxymask takes it off and then desaturates to mid 80's fairly quickly. lungs mostly remarkable for very diminished air entry - does have faint scattered rales / wheeze but mostly diminished. central weight wtih thick neck, large protuberent abdomen. cardio distant. skin without rashes pallor or icterus. RLE BKA labs noted CXR noted CT from may and old pulmonary notes reviewed as well. no prior PFTs found. dyspnea/mixed hypercapnic and hypoxic respiratory failure -suspect that his picture is in very small part acute from an infection (will cover for CAP given his low margin of error) but heavily chronic respiratory failure mostly mediated by BETET/OHS and abject noncompliance with extreme prejudice against even the thought of using bipap. -discussed acute management would right now ideally involve bipap -he refuses, educated him/brother/son on the physiology involved and how without bipap i am treating his problems with less than ideal measures and therefore he may not have the best outcome (discussed likelihood of prolonged hospitalization that could turn around faster and small but real chance of ) -discussed chronic management and how essentially is needlessly committing a slow suicide of chronic respiratory failure that could almost certainly be averted with bipap, a trach, or possibly an inspire (i am less familiar with patient selection for this). further discussed how patients will often bias themselves against bipap and fulfill the old adage "if you think you can't, you're right" by deciding that they won't tolerate it and therefore not tolerating it. --->brother and son present in the room and express good understanding of the problems at hand, both acutely and chronically. son finds me after i leave the room and expresses tearful frustration at watching his father slowly decline and him not being able to do anything about it. offered empathy/support/guidance as best i could given that the only thing that will truly have the patient opt for better health/outcomes/etc would be his own choices. otherwise as above PG Care Time/CCT Total # of Minutes Spent Total Time Spent with Patient: Total time spent is greater than 50% in coordination of care (as documented) at patient's floor/unit and/or counseling patient: Coding [place] [address] INT INP/OBS CARE 3/75MIN Patient Type Established History Comprehensive Exam Comprehensive Medical Decision Making High Complexity Diagnoses Acute on chronic respiratory failure with hypoxia J96.21 Pneumonia J18.9
[2024-10-20] MEDS: OPTIRAY 320 100ml IV ONE (19:20)
[2024-10-20] MEDS ORDERED: ACETAMINOPHEN 325 MG TAB PO PRN (20:02)
[2024-10-20] MEDS ORDERED: GLUCOSE 40% GEL 15 GM TUBE PO PRN (20:02)
[2024-10-20] MEDS ORDERED: GLUCAGON FOR INJ 1 MG VIAL SQ PRN (20:02)
[2024-10-20] MEDS ORDERED: MELATONIN 3 MG TAB PO PRN (20:02)
[2024-10-20] MEDS ORDERED: CARBOHYDRATES FOR HYPOGLYCEMIA PO PRN (20:02)
[2024-10-20] MEDS ORDERED: BENZONATATE 100 MG CAPSULE PO PRN (20:02)
[2024-10-20] MEDS ORDERED: GLUCOSE 10 TAB/TUBE PO PRN (20:02)
[2024-10-20] MEDS: DEXTROSE 50% 50 ML SYRINGE IV PRN (20:21)
[2024-10-20] MEDS: ALBUT/IPRATROP 3MG/0.5MG NEB 3 ML VIAL INH SCH (20:22)
[2024-10-20] MEDS: LANTUS PER UNIT CHARGE SQ SCH (20:40)
[2024-10-20] MEDS: INSULIN ASPART PER UNIT CHARGE SC SCH (20:41)
--- NOTE | 2024-10-20 21:00 | CT Scan Report ---
EXAM: CT chest diagnostic w con CLINICAL HISTORY: Acute on chronic hypoxic resp failure. TECHNIQUE: Contiguous 3.[address] images of the chest were acquired with administration of intravenous contrast. Coronal and sagittal reconstructions were obtained. 93ml opti 320 was administered intravenously. One of the following dose reduction techniques were utilized for this exam: Automated exposure control, adjustment of the mA and/or kV according to patient size, and use of iterative reconstruction. DLP: 815 mGy-cm, CTDI: 28 mGy COMPARISON: OBX.5.1OBX.5.1.1X-ray at the same day /OBX.5.1.1OBX.5.1.2 CT dated 05/10/2024./OBX.5.1.2/OBX.5.1 FINDINGS: Lungs: Stable consolidation atelectasis at the left upper lung lobe and the lingula. Stable ground-glass nodules in the anterior segment of the right upper lobe measuring up to 5mm. New bibasal subpleural atelectasis or pleural thickening. Mediastinum: No mediastinal mass or abnormal lymphadenopathy. Normal appearance of the thymus. Hilar Structures: Normal size and configuration, no enlargement. Heart and Great Vessels: Mild cardiomegaly . No pericardial effusion. Normal caliber and course of the thoracic aorta and other great vessels. No significant atherosclerosis or aneurysm. Normal enhancement of the great vessels post-contrast. Pulmonary Arteries: No evidence of pulmonary embolism. Normal size and course of the pulmonary arteries. Esophagus: Normal course and caliber. No masses or dilatation. Bones: No fractures or lytic/sclerotic lesions. Normal bone density and alignment. No evidence of rib fractures. Chest Wall: No masses or soft tissue abnormalities. Upper Abdomen: Ascites is noted in perihepatic and perisplenic regions. Thyroid: Normal size and morphology. No nodules or masses. IMPRESSION: 1. Stable consolidation atelectasis at the left upper lung lobe and the lingula. 2. Stable ground-glass nodules in the anterior segment of the right upper lobe measuring up to 5mm. 3. New bibasal subpleural atelectasis or pleural thickening. 4. Mild cardiomegaly. stable. Electronically signed by Noman Oropeza 10-20-2024 9:00 PM
[2024-10-20] MEDS: DEXTROSE 50% 50 ML SYRINGE IV ONE (21:55)
[2024-10-20] MEDS: FUROSEMIDE INJ 20 MG/2 ML VIAL IV SCH (22:02)
[2024-10-20] MEDS: FUROSEMIDE 40 MG TAB PO SCH (22:16)
[2024-10-20] MEDS: NORTRIPTYLINE HCL 25 MG CAP PO SCH (22:16)
[2024-10-20] MEDS: DOXYCYCLINE HYCLATE 100 MG CAP PO SCH (22:17)
[2024-10-20] MEDS: cilostazoL 100 MG TAB PO SCH (22:17)
[2024-10-20] MEDS: DOXYCYCLINE HYCLATE 100 MG in DEXTROSE 5% MINI-B 100 ML IV SCH (23:07)
[2024-10-20] MEDS: ENOXAPARIN INJ 40 MG/0.4 ML SYR SQ SCH (23:07)
[2024-10-21] MEDS: INSULIN ASPART PER UNIT CHARGE SC SCH ×2 (00:08→19:59)
[2024-10-21 04:20] LABS: Base Excess ABG 11.2 mEq/L (-9-1.8); HCO3 ABG 37 mmol/L (19-24); Oxygen Saturation ABG 97.1 % (90-95); PCO2 ABG 52 mmHg (35-46); PO2 ABG 77 mmHg (80-95); pH ABG 7.46 (7.35-7.45)
[2024-10-21 04:21] LABS: Allen Test Pos (Pos)
[2024-10-21 05:31] LABS: Appearance Urine Clear (Clear); Bilirubin Urine Negative (Negative); Blood Urine Negative (Negative); Color Urine Yellow; Glucose Urine UA Negative (Negative); Ketones Urine Negative (Negative); Leukocyte Esterase Urine Negative (Negative); Nitrite Urine Negative (Negative); Protein Urine Negative (Negative); Specific Gravity Urine 1.018 (1.000-1.030); Urobilinogen Urine Negative (Negative)
[2024-10-21 07:43] LABS: Basophils # (auto) 0.09 K/uL (0.00-0.20); Basophils % (auto) 0.9 %; Eosinophils # (auto) 0.43 K/uL (0.00-0.50); Eosinophils % (auto) 4.1 %; Hematocrit (blood only) 35.5 % (42.0-52.0); Hemoglobin 9.8 g/dl (14.0-18.0); Immature Granulocytes # (auto) 0.04 K/uL (0.01-0.20); Immature Granulocytes % (auto) 0.4 %; Lymphocytes # (auto) 1.59 K/uL (1.20-3.40); Lymphocytes % (auto) 15.1 %; Mean Corpuscular Hemoglobin 22.5 pg (25.0-34.0); Mean Corpuscular Hgb Conc 27.6 g/dL (32.0-36.0); Mean Corpuscular Volume 81.4 fL (80.0-100.0); Mean Platelet Volume 11.3 fL (9.4-12.4); Monocytes # (auto) 0.97 K/uL (0.11-0.59); Monocytes % (auto) 9.2 %; Neutrophils # (auto) 7.38 K/uL (1.40-6.50); Neutrophils % (auto) 70.3 %; Platelet Count 312 K/uL (130-400); RDW Coefficient of Variation 18.4 % (11.5-14.5); RDW Standard Deviation 53.8 fL (36.4-46.3); Red Blood Count 4.36 M/uL (4.70-6.10)
--- NOTE | 2024-10-21 08:01 | Hospitalist Progress Note ---
Date of Service October 21, 2024 Assessment & Plan (1) Acute on chronic respiratory failure with hypoxia: Plan: Negative Biofire. Negative proclcitonin. Elevated BNP. Most likely etiology is CHF and COPD exacerbation Continue with supplemental oxygen to maintain SpO2 between 88 and 92% Encourage BiPAP usage at bedtime and during the day as tolerated Will check repeat VBG in the morning as well as basic labs (2) Pneumonia: Plan: Repeat chest x-ray in the morning Continue with antibiotics for now although procalcitonin is negative based on CT chest Can most likely de-escalate antibiotics tomorrow if no fever Patient denies any productive sputum or hemoptysis (3) COPD exacerbation: Plan: Patient with [id number] smoking history. No PFTs are available for review Presumed COPD based on chronic hypoxemic respiratory failure Continue antibiotics as above Patient does not appear to be on that he open inhalers DuoNebs as needed shortness of breath or wheezes (4) (HFpEF) heart failure with preserved ejection fraction: Plan: Echocardiogram 12/10/2023 Left ventricular ejection fraction estimated at 60 to 65%. Grade 1 diastolic dysfunction No evidence of mass or vegetation Left ventricular systolic function is normal Mild to moderate tricuspid regurgitation Right ventricular systolic pressure is elevated at 50 to 60 mmHg BNP 204 Continue with furosemide 40 mg p.o. twice daily Follow strict I's and O's (5) Pulmonary hypertension: Plan: Continue with diuresis and supplemental oxygen (6) PAD (peripheral artery disease): Plan: Status post right below the knee amputation Continue with clopidogrel Continue with close diabetic management Patient quit smoking 20 years ago (7) BETTE (obstructive sleep apnea): Plan: Patient reports that he has equipment at home but does not use it Continue to encourage BiPAP usage at bedtime and during the day So far this admission, patient refused positive pressure devices. (8) Type 2 diabetes mellitus: Plan: Hemoglobin A1c 6.7% Will hold Lantus as his BSG dropped into 40s Continue sliding scale insulin. Continue glipizide and metformin Will request glycemic management consult (9) Ex-smoker: Plan: [id number]-[id number] smoking history. Quit smoking 20 years ago (10) Hypertension: Plan: Continue with metoprolol succinate 50 mg p.o. daily as well as lisinopril 30 mg p.o. daily. Plan Disposition: Admit to U telemetry DNR/DNI T2DM diet VTE PPx: Lovenox 40 mg SQ q24h Admission and Anticipated Discharge Date Admission Date: October 20, 2024 Supervising Physician Co-Signing Physician Notes Attending Attestation - Chart reviewed, care plan d/w PER [facility]. I agree w/ the perez components of his documentation. Merrick Ariza MD Subjective Attending: Dr. Ariza Patient is a 69-year-old male with PMH of COPD, HFpEF, s/p BKA, right ventricular failure, PAD, CKD, T2DM, and BETTE. He presented on 10/20 for SOB, chest tightness, and wheezing. Patient's symptoms began on Monday 10/16 and have gradually worsened. Patient is on supplemental oxygen at baseline. Currently requiring 8 L/min via oximask. Afebrile. Bio fire is negative. Procalcitonin 0.06. BNP on admission was elevated at 204 Patient was seen at bedside on 3 separate occasions this date. He is fairly resistant to being compliant with treatment. Patient was alert and oriented but not very engaging in conversation. He currently is on 7L/min via HFNC and is refusing BiPAP. He denies significant SOB with the supplemental oxygen. He states supplemental oxygen at home baseline 4 L/min via NC. Suspect the patient's shortness of breath secondary to COPD exacerbation and CHF. Review of Systems 2 Review of Systems: A total of 10 systems was reviewed and is negative other than as listed in the HPI Physical Exam 2 Physical Exam: GENERAL : No acute distress EYES: No icterus, gaze conjugate NOSE: No evidence of epistaxis MOUTH: No lesions or candidiasis NECK: Supple LUNGS: Decreased breath sounds at the bilateral bases. Scattered wheezes throughout. HEART: Regular, rate controlled ABDOMEN: Soft, NT, ND, BS Present EXTREMITIES: No LE edema, pedal pulses intact NEURO: A&OX3. Minimal engagement by the patient Results & Data Results & Data Vital Signs (Past 12 Hours) Vital Signs Temp Pulse Pulse Resp BP Pulse Ox O2 Del Method 10/21/24 07:24 85 20 96 Oxymask 10/21/24 03:00 82 19 91 Oxymask 10/21/24 02:21 36.7 C 84 19 110/74 92 BiPAP 10/21/24 01:01 74 19 93 BiPAP 10/20/24 23:10 87 19 95 10/20/24 22:55 36.8 C 83 20 108/70 100 Oxymask 10/20/24 20:22 81 20 98 BiPAP 10/20/24 20:10 36.9 C 84 22 114/75 93 Oxymask 10/20/24 20:07 83 21 94 10/20/24 20:02 BiPAP O2 Flow Rate FiO2 10/21/24 07:24 8 10/21/24 03:00 8 10/21/24 02:21 10/21/24 01:01 35 10/20/24 23:10 50 10/20/24 22:55 15 10/20/24 20:22 40 10/20/24 20:10 10 10/20/24 20:07 50 10/20/24 20:02 Laboratory Results 10/21/24 07:15 10/21/24 07:15 Diagnostic Findings Chest X-Ray 10/20/24 14:23 EXAM: Radiograph of the Chest 1 View INDICATION: Dyspnea TECHNIQUE: Frontal view of the chest. COMPARISON: 05/10/2024 FINDINGS: Lungs and pleural spaces: There is patchy infiltrate in the right lung base. No pleural effusion or pneumothorax. Stable enlarged left hilum. Heart: Stable large cardiac shadow. Mediastinum: Normal contour. Bones/joints: No fracture, erosion or dislocation. Soft tissues: No abnormality noted. No radiopaque foreign body noted. Upper abdomen: No abnormality noted. IMPRESSION: 1. Patchy right basilar pneumonia. 2. Stable enlarged left hilum likely pulmonary vasculature. IV contrast CT would better assess the left hilum if clinically warranted. Stability suggest a benign process. ACT 112: N/A Electronically signed by Mary Petty 10-20-2024 3:[address] 10/20/24 17:10 EXAM: CT chest diagnostic w con CLINICAL HISTORY: Acute on chronic hypoxic resp failure. TECHNIQUE: Contiguous 3.[address] images of the chest were acquired with administration of intravenous contrast. Coronal and sagittal reconstructions were obtained. 93ml opti 320 was administered intravenously. One of the following dose reduction techniques were utilized for this exam: Automated exposure control, adjustment of the mA and/or kV according to patient size, and use of iterative reconstruction. DLP: 815 mGy-cm, CTDI: 28 mGy COMPARISON: OBX.5.1OBX.5.1.1X-ray at the same day /OBX.5.1.1OBX.5.1.2 CT dated 05/10/2024./OBX.5.1.2/OBX.5.1 FINDINGS: Lungs: Stable consolidation atelectasis at the left upper lung lobe and the lingula. Stable ground-glass nodules in the anterior segment of the right upper lobe measuring up to 5mm. New bibasal subpleural atelectasis or pleural thickening. Mediastinum: No mediastinal mass or abnormal lymphadenopathy. Normal appearance of the thymus. Hilar Structures: Normal size and configuration, no enlargement. Heart and Great Vessels: Mild cardiomegaly . No pericardial effusion. Normal caliber and course of the thoracic aorta and other great vessels. No significant atherosclerosis or aneurysm. Normal enhancement of the great vessels post-contrast. Pulmonary Arteries: No evidence of pulmonary embolism. Normal size and course of the pulmonary arteries. Esophagus: Normal course and caliber. No masses or dilatation. Bones: No fractures or lytic/sclerotic lesions. Normal bone density and alignment. No evidence of rib fractures. Chest Wall: No masses or soft tissue abnormalities. Upper Abdomen: Ascites is noted in perihepatic and perisplenic regions. Thyroid: Normal size and morphology. No nodules or masses. IMPRESSION: 1. Stable consolidation atelectasis at the left upper lung lobe and the lingula. 2. Stable ground-glass nodules in the anterior segment of the right upper lobe measuring up to 5mm. 3. New bibasal subpleural atelectasis or pleural thickening. 4. Mild cardiomegaly. stable. Electronically signed by Noman Oropeza 10-20-2024 9:00 PM PG Care Time/CCT Total # of Minutes Spent Total Time Spent with Patient: Total time spent is greater than 50% in coordination of care (as documented) at patient's floor/unit and/or counseling patient: Coding Level of Care Code 88940 SUB INP/OBS CARE 2/35MIN Diagnoses Acute on chronic respiratory failure with hypoxia J96.21 Pneumonia J18.9 COPD exacerbation J44.1 (HFpEF) heart failure with preserved ejection fraction I50.30 Pulmonary hypertension I27.20 PAD (peripheral artery disease) I73.9 BETTE (obstructive sleep apnea) G47.33 Type 2 diabetes mellitus with diabetic peripheral angiopathy and gangrene, with long-term current use of insulin E11.52; Z79.4 Diabetes mellitus complication status: with circulatory complication Diabetes mellitus terminal operations manager insulin use: with terminal operations manager use Ex-smoker Z87.891 Primary hypertension I10 Hypertension type: primary hypertension Time Spent (min) 40 (8) Type 2 diabetes mellitus Diabetes mellitus complication status: with circulatory complication Diabetes mellitus terminal operations manager insulin use: with terminal operations manager use Qualified Code(s): E11.52 - Type 2 diabetes mellitus with diabetic peripheral angiopathy with gangrene; Z79.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
[2024-10-21 08:06] LABS: BUN Creatinine Ratio 31.2 (10-20); Calcium 9.3 mg/dl (8.6-10.3); Magnesium 1.8 mg/dl (1.7-2.4); Potassium 4.4 mmol/L (3.5-5.1)
[2024-10-21 08:33] LABS: Estimated Average Glucose 146 mg/dl; Hemoglobin A1C 6.7 % (4.5-5.6)
[2024-10-21] MEDS: MAGNESIUM OXIDE 400 MG TAB PO ONE (09:16)
[2024-10-21] MEDS: lisinopril 5 MG TAB PO SCH (09:18)
[2024-10-21] MEDS: ASPIRIN 81 MG CHEW PO SCH (09:19)
[2024-10-21] MEDS: CLOPIDOGREL BISULFATE 75 MG TAB PO SCH (09:20)
[2024-10-21] MEDS: ROSUVASTATIN CALCIUM 10 MG TAB PO SCH (09:21)
[2024-10-21] MEDS: METOPROLOL SUCC 50MG EXT REL TAB PO SCH (09:21)
[2024-10-21] MEDS: PANTOprazole 40 MG TAB PO SCH (09:21)
--- NOTE | 2024-10-21 12:05 | Electrocardiogram Report ---
Test Reason : Blood Pressure : */* mmHG Vent. Rate : 86 BPM Atrial Rate : 86 BPM P-R Int : 216 ms QRS Dur : 148 ms QT Int : 390 ms P-R-T Axes : 62 165 57 degrees QTcB Int : 466 ms Sinus rhythm with 1st degree A-V block Right bundle branch block Possible Right ventricular hypertrophy Cannot rule out Septal infarct , age undetermined Lateral infarct , age undetermined Abnormal ECG When compared with ECG of 10-Aug-2024 15:34, QRS axis Shifted right Minimal criteria for Septal infarct are now Present Lateral infarct is now Present Nonspecific T wave abnormality, improved in Inferior leads Confirmed by Ivan Chi ([id number]) on 10/21/2024 12:05:36 PM Referred By: Confirmed By: Ivan Chi
[2024-10-21] MEDS: cefTRIAXone SODIUM 2,000 MG/50 ML BAG IV SCH (16:08)
[2024-10-21] MEDS ORDERED: ALBUT/IPRATROP 3MG/0.5MG NEB 3 ML VIAL NEB PRN (18:40)
[2024-10-21] MEDS ORDERED: PHARMACY GLYCEMIC MGMT CONSULT PRN (18:48)
[2024-10-22 06:13] LABS: Base Excess VBG 10.2 mEq/L; HCO3 VBG 40 mmol/L; Oxygen Saturation VBG < 60.0 %; PCO2 VBG 84 mmHg (38-50); PO2 VBG 34 mmHg; pH VBG 7.29 (7.36-7.41)
[2024-10-22 06:23] LABS: Basophils # (auto) 0.09 K/uL (0.00-0.20); Basophils % (auto) 0.8 %; Eosinophils # (auto) 0.53 K/uL (0.00-0.50); Eosinophils % (auto) 4.7 %; Hematocrit (blood only) 36.3 % (42.0-52.0); Immature Granulocytes # (auto) 0.04 K/uL (0.01-0.20); Immature Granulocytes % (auto) 0.4 %; Lymphocytes # (auto) 1.72 K/uL (1.20-3.40); Lymphocytes % (auto) 15.3 %; Mean Corpuscular Hemoglobin 22.7 pg (25.0-34.0); Mean Corpuscular Hgb Conc 27.5 g/dL (32.0-36.0); Mean Corpuscular Volume 82.5 fL (80.0-100.0); Mean Platelet Volume 10.9 fL (9.4-12.4); Monocytes # (auto) 1.24 K/uL (0.11-0.59); Monocytes % (auto) 11.1 %; Neutrophils # (auto) 7.59 K/uL (1.40-6.50); Neutrophils % (auto) 67.7 %; Platelet Count 289 K/uL (130-400); RDW Coefficient of Variation 18.4 % (11.5-14.5); RDW Standard Deviation 54.4 fL (36.4-46.3); White Blood Count 11.21 K/ul (4.8-10.8)
[2024-10-22 06:59] LABS: Calcium 9.2 mg/dl (8.6-10.3); Creatinine Clr Calc Pharmacy 46.9 ml/min; Potassium 4.8 mmol/L (3.5-5.1)
--- NOTE | 2024-10-22 08:24 | XRay Report ---
EXAM: XR chest 1V portable CLINICAL HISTORY: Acute on chronic hypoxia TECHNIQUE: An X-ray image of the chest is obtained in 1 AP projection. COMPARISON: CT and CXR 10/20/2024 FINDINGS: Pulmonary Parenchyma: Unchanged left middle and lower zones opacification suggesting pneumonic consolidation. Interval increase haziness in right lung field. Heart and Mediastinum: Moderate cardiomegaly. No mediastinal widening or masses. No hilar or mediastinal lymphadenopathy. Bony Thorax: Bony thorax appears intact without fractures or deformities. Soft Tissues: Soft tissues overlying the chest wall are unremarkable. IMPRESSION: 1. Unchanged left middle and lower zones opacification suggesting pneumonic consolidation-infection. 2. Interval increase haziness in right lung field, could be due to developing basal congestion. 3. Moderate cardiomegaly. (Unchanged). 4. No time interval significant radiological changes. Electronically signed by Noman Oropeza 10-22-2024 08:23 AM
[2024-10-22] MEDS: LANTUS PER UNIT CHARGE SC SCH ×2 (09:22→21:00)
[2024-10-22 10:01] LABS: Base Excess VBG 8.3 mEq/L; HCO3 VBG 37 mmol/L; Oxygen Saturation VBG < 60.0 %; PCO2 VBG 70 mmHg (38-50); PO2 VBG 36 mmHg; pH VBG 7.33 (7.36-7.41)
--- NOTE | 2024-10-22 10:19 | Hospitalist Progress Note ---
Date of Service October 22, 2024 Assessment & Plan (1) Acute on chronic respiratory failure with hypoxia: Plan: with hypoxia AND hypercapnia acute component 2nd to pneumonia as seen on chest x-ray cont BIPAP with sleep/HS cont NC o2 during the day keep sats 90-92% VBG improved following adjustments in BIPAP settings repeat VBG in am tomorrow he states he is comfortable with our BIPAP he does not have BIPAP at home - hasn't used in "years" (2) Pneumonia: Plan: b/l community-acquired MRSA swab neg - defer on coverage for such cont rocephin - day #3 cont doxy - day #3 if he fails to improve or worsens add broader gram negative coverage cont supportive care as in #1 above (3) COPD exacerbation: Plan: consider systemic steroids if any worsening cont scheduled nebs of note - he is not on chronic inhalers at home (4) (HFpEF) heart failure with preserved ejection fraction: Plan: Echocardiogram 12/10/2023 Left ventricular ejection fraction estimated at 60 to 65%. Grade 1 diastolic dysfunction Mild to moderate tricuspid regurgitation Right ventricular systolic pressure is elevated at 50 to 60 mmHg Right ventricular systolic function reduce c/w cor pulmonale he now has MADDI in setting of attempts at diuresis and does not appear volume overloaded on exam -- STOP lasix will update his echo while here (5) Pulmonary hypertension: Plan: supplemental oxygen, keep sats 90-92% repeat echo while here (6) PAD (peripheral artery disease): Plan: Status post right BKA Continue with clopidogrel daily Continue crestor Continue cilostazol Patient quit smoking 20 years ago (7) BETTE (obstructive sleep apnea): Plan: Patient reports that he has equipment at home but does not use it Continue to encourage BiPAP usage at bedtime and during the day He is finally using BIPAP here more consistently (8) Type 2 diabetes mellitus: Plan: Hemoglobin A1c 6.7% Holding glipizide and metformin On lantATRI - [facility]-novolog Pharmacy glycemic team assistance appreciated with his management (9) Ex-smoker: Plan: 11-hvjc-erty smoking history. Quit smoking 20 years ago (10) Hypertension: Plan: Continue with metoprolol succinate 50 mg p.o. daily Hold SHERMAN due to MADDI (11) Acute kidney injury: Plan: likely 2nd to over-diuresis hold lasix hold SHERMAN serial BMPs Plan DVT proph - Lovenox 40 mg SQ q24h Admission and Anticipated Discharge Date Admission Date: October 20, 2024 Subjective by report patient was lethargic most of the night despite use of BIPAP (he did wear such during the night) this am his VBG showed worsening pH and pCO2 thus respiratory increased the BIPAP settings repeat VBG improved during my visit he was off BIPAP and back over to NC O2 he was fully awake, alert and able to give full history he had no respiratory distress he reports "feeling better" with his dyspnea since arrival to the hospital appetite is good - did eat decent breakfast some cough confirms he is on 4 L NC O2 at home continuously also mentions he hasn't been wearing his RLE prosthesis - there is an issue with the proximal portion attaching to the stump is supposed to see someone locally in [place] for this tele overnight wnl Review of Systems 2 Review of Systems: gen - no fevers or chills cv - no orthopnea or chest pain pulm - no dyspnea at rest GI - no N/V Physical Exam Physical Exam: gen - resting comfortably in bed, NAD, awake/alert/talkative, no respiratory distress neck - no obvious JVD mouth - MMM heart - RRR, s1 s2, no murmur lungs - decreased BS bases, occasional crackle bases, no wheezes, no increased work of breathing abd - mildly distended but he states "it's always like that"; BS+, NT, no HSM ext - right BKA; left leg w/o edema, pulses left foot 2+ psych - a/o x 3 Results & Data Results & Data Vital Signs (Past 12 Hours) Vital Signs Temp Pulse Pulse Resp BP Pulse Ox O2 Del Method 10/22/24 08:29 36.6 C 102 H 18 112/66 98 High Flow Nasal Cannula 10/22/24 07:51 92 H 20 93 10/22/24 07:51 90 20 93 BiPAP 10/22/24 07:42 95 H 10/22/24 03:18 36.9 C 81 16 100/63 90 BiPAP 10/22/24 00:40 89 19 94 BiPAP 10/21/24 23:08 36.3 C L 90 21 113/65 94 BiPAP 10/21/24 22:59 90 17 91 O2 Flow Rate FiO2 10/22/24 08:29 11.0 10/22/24 07:51 35 10/22/24 07:51 35 10/22/24 07:42 10/22/24 03:18 10/22/24 00:40 35 10/21/24 23:08 10/21/24 22:59 16 40 Laboratory Results Laboratory Results - last 24 hr 10/21/24 10/21/24 10/21/24 11:18 17:18 19:55 WBC RBC Hgb Hct MCV MCH MCHC RDW Std Deviation RDW Coeff of Larry Plt Count MPV Immature Gran % (Auto) Neut % (Auto) Lymph % (Auto) [place] % (Auto) Eos % (Auto) Baso % (Auto) Neut # (Auto) Lymph # (Auto) [place] # (Auto) Eos # (Auto) Baso # (Auto) Immature Gran # (Auto) VBG pH VBG pCO2 VBG pO2 VBG HCO3 VBG O2 Saturation VBG Base Excess Sodium Potassium Chloride Carbon Dioxide Anion Gap BUN Creatinine Est Cr Clr Drug Dosing eGFR POC Glucose 158 H 121 H 121 H Fasting Glucose Calcium Nasal Screen MRSA (PCR) 10/22/24 10/22/24 10/22/24 06:02 08:21 09:32 WBC 11.21 H RBC 4.40 L Hgb 10.0 L Hct 36.3 L MCV 82.5 MCH 22.7 L MCHC 27.5 L RDW Std Deviation 54.4 H RDW Coeff of Larry 18.4 H Plt Count 289 MPV 10.9 Immature Gran % (Auto) 0.4 Neut % (Auto) 67.7 Lymph % (Auto) 15.3 [place] % (Auto) 11.1 Eos % (Auto) 4.7 Baso % (Auto) 0.8 Neut # (Auto) 7.59 H Lymph # (Auto) 1.72 [place] # (Auto) 1.24 H Eos # (Auto) 0.53 H Baso # (Auto) 0.09 Immature Gran # (Auto) 0.04 VBG pH 7.29 L 7.33 L VBG pCO2 84 H 70 H VBG pO2 34 36 VBG HCO3 40 37 VBG O2 Saturation < 60.0 < 60.0 VBG Base Excess 10.2 8.3 Sodium 138 Potassium 4.8 Chloride 95 L Carbon Dioxide 39 H Anion Gap 4 BUN 47 H Creatinine 1.84 H D Est Cr Clr Drug Dosing 46.9 eGFR 39.19 POC Glucose 141 H Fasting Glucose 118 H Calcium 9.2 Nasal Screen MRSA (PCR) 10/22/24 Unknown WBC RBC Hgb Hct MCV MCH MCHC RDW Std Deviation RDW Coeff of Larry Plt Count MPV Immature Gran % (Auto) Neut % (Auto) Lymph % (Auto) [place] % (Auto) Eos % (Auto) Baso % (Auto) Neut # (Auto) Lymph # (Auto) [place] # (Auto) Eos # (Auto) Baso # (Auto) Immature Gran # (Auto) VBG pH VBG pCO2 VBG pO2 VBG HCO3 VBG O2 Saturation VBG Base Excess Sodium Potassium Chloride Carbon Dioxide Anion Gap BUN Creatinine Est Cr Clr Drug Dosing eGFR POC Glucose Fasting Glucose Calcium Nasal Screen MRSA (PCR) Pending Diagnostic Findings Chest X-Ray 10/22/24 07:00 EXAM: XR chest 1V portable CLINICAL HISTORY: Acute on chronic hypoxia TECHNIQUE: An X-ray image of the chest is obtained in 1 AP projection. COMPARISON: CT and CXR 10/20/2024 FINDINGS: Pulmonary Parenchyma: Unchanged left middle and lower zones opacification suggesting pneumonic consolidation. Interval increase haziness in right lung field. Heart and Mediastinum: Moderate cardiomegaly. No mediastinal widening or masses. No hilar or mediastinal lymphadenopathy. Bony Thorax: Bony thorax appears intact without fractures or deformities. Soft Tissues: Soft tissues overlying the chest wall are unremarkable. IMPRESSION: 1. Unchanged left middle and lower zones opacification suggesting pneumonic consolidation-infection. 2. Interval increase haziness in right lung field, could be due to developing basal congestion. 3. Moderate cardiomegaly. (Unchanged). 4. No time interval significant radiological changes. Electronically signed by Noman Oropeza 10-22-2024 08:23 AM PG Care Time/CCT Total # of Minutes Spent Total Time Spent with Patient: Total time spent is greater than 50% in coordination of care (as documented) at patient's floor/unit and/or counseling patient: Coding Level of Care Code 66822 SUB INP/OBS CARE 3/50MIN Diagnoses Acute on chronic respiratory failure with hypoxia J96.21 Pneumonia J18.9 COPD exacerbation J44.1 (HFpEF) heart failure with preserved ejection fraction I50.30 Pulmonary hypertension I27.20 PAD (peripheral artery disease) I73.9 BETTE (obstructive sleep apnea) G47.33 Type 2 diabetes mellitus with diabetic peripheral angiopathy and gangrene, with long-term current use of insulin E11.52; Z79.4 Diabetes mellitus complication status: with circulatory complication Diabetes mellitus intermediate accountant insulin use: with [facility] use Ex-smoker Z87.891 Primary hypertension I10 Hypertension type: primary hypertension Acute kidney injury N17.9 (8) Type 2 diabetes mellitus Diabetes mellitus complication status: with circulatory complication Diabetes mellitus intermediate accountant insulin use: with intermediate accountant use Qualified Code(s): E11.52 - Type 2 diabetes mellitus with diabetic peripheral angiopathy with gangrene; Z79.4 - [facility] (current) use of insulin (10) Hypertension Hypertension type: primary hypertension Qualified Code(s): I10 - Essential (primary) hypertension
--- NOTE | 2024-10-22 11:07 | Pharmacy Report ---
Pharmacy Glycemic Short Note 2 - Date of Service October 22, 2024 - Glycemic Short BSG Results (Last 24 hours): 10/21/24 10/21/24 10/21/24 11:18 17:18 19:55 POC Glucose 158 H 121 H 121 H Fasting Glucose 10/22/24 10/22/24 06:02 08:21 POC Glucose 141 H Fasting Glucose 118 H OUTPATIENT ANTIDIABETIC REGIMEN: * Lantus 50 units SQ BID * metformin 1000mg BIDM * glipizide 5mg BID * HbA1c 6.7% (10/21/24) ASSESSMENT: * Oliverio is a 69 year old male admitted with pnemonia and a history of type 2 insulin dependent diabetes mellitus. Pharmacy has been consulted to assist with glycemic management while inpatient. * Fasting BSG this AM acceptable, Lantus held yesterday due to episodes of hypoglycemia, suspect will need significantly less basal insulin while inpatient. Will start basal insulin at a weight based stress of 1 today and BSGs trending up and no hypoglycemia noted. * NovoLog initiated at a weight based stress of 2, no changes at this time. He is receiving IV ceftriaxone and oral doxycycline to treat pneumonia. PLAN FOR INPATIENT GLYCEMIC CONTROL: * Hold outpatient oral diabetes medications * Basal insulin * Lantus 10 units SQ daily * Lantus 0-10 units SQ HS (only if BSG is greater than 160mg/dL) * Bolus insulin * NovoLog per scale ACHS or Q6hrs while NPO * Goal Range: Low 110 mg/dL - High 140 mg/dL * Correction Factor: 20 mg/dL/unit * Nutritional / Prandial insulin per carb ratio of 1 unit per 8 grams CHO consumed
[2024-10-22 12:09] LABS: iSTAT Arterial Blood Gas HCO3 37 meg/L (19-24); iSTAT Arterial Blood Gas pCO2 66 mmHg (35-46); iSTAT Arterial Blood Gas pH 7.35 (7.35-7.45); iSTAT Arterial Blood Gas pO2 55 mmHg (80-95); iSTAT Carbon Dioxide 39 mmol/L (24-31); iSTAT Hematocrit 37 % (42-52); iSTAT Hemoglobin 12.6 g/dl (14.0-18.0); iSTAT Potassium 4.6 mmol/L (3.3-5.0); iSTAT Sodium 138 mmol/L (135-144)
[2024-10-23 06:48] LABS: Calcium 9.2 mg/dl (8.6-10.3); Creatinine Clr Calc Pharmacy 46.3 ml/min; Potassium 4.8 mmol/L (3.5-5.1)
[2024-10-23 07:13] LABS: Base Excess VBG 9.6 mEq/L; HCO3 VBG 39 mmol/L; Oxygen Saturation VBG < 60.0 %; PCO2 VBG 80 mmHg (38-50); PO2 VBG 24 mmHg
[2024-10-23] MEDS: guaiFENesin 600 MG TABCR PO SCH (08:44)
--- NOTE | 2024-10-23 11:09 | Hospitalist Progress Note ---
Date of Service October 23, 2024 Assessment & Plan (1) Acute on chronic respiratory failure with hypoxia: Plan: with hypoxia AND hypercapnia acute component 2nd to ?pneumonia as seen on chest x-ray some concern for acute/chronic right-sided CHF at admission - was diuresed, but within a short period of time he developed MADDI & diuretics are now on hold cont BIPAP with sleep/HS cont NC o2 during the day keep sats 90-92% he does not have BIPAP at home - hasn't used in "years" Need to swap BIPAP for Trilogy/AVAPS? I have consulted Dr Molina for his opinion & additional recommendations of his complex cardiopulmonary issues (2) Pneumonia: Plan: b/l as seen on most recent chest x-ray community-acquired MRSA swab neg - defer on coverage for such cont rocephin - day #4 cont doxy - day #4 can likely change to PO abx tomorrow (3) COPD exacerbation: Plan: defer on systemic steroids cont scheduled nebs of note - he is not on chronic inhalers at home appreciate any additional recommendations from Dr Molina from pulmonary (4) (HFpEF) heart failure with preserved ejection fraction: Plan: Echocardiogram 12/10/2023 Left ventricular ejection fraction estimated at 60 to 65%. Grade 1 diastolic dysfunction Mild to moderate tricuspid regurgitation Right ventricular systolic pressure is elevated at 50 to 60 mmHg Right ventricular systolic function reduce c/w cor pulmonale repeat echo today --> severe RV dysfunction, moderate pulmonary HTN, normal EF 6 0-65%, grade 1 diastolic dysfunction he now has MADDI in setting of attempts at diuresis earlier in the stay; does not appear volume overloaded on exam lasix on hold (5) Pulmonary hypertension: Plan: supplemental oxygen, keep sats 90-92% repeat echo with at least moderate pulmonary HTN (6) PAD (peripheral artery disease): Plan: Status post right BKA Continue with clopidogrel daily Continue crestor Continue cilostazol Patient quit smoking 20 years ago (7) BETTE (obstructive sleep apnea): Plan: Patient reports that he has equipment at home but does not use it Continue to encourage BiPAP usage at bedtime and during the day - thus far he is using it AVAPS/Trilogy in the future? (8) Type 2 diabetes mellitus: Plan: Hemoglobin A1c 6.7% Holding glipizide and metformin On lantus-novolog Pharmacy glycemic team assistance appreciated with his management (9) Ex-smoker: Plan: [id number] smoking history. Quit smoking 20 years ago (10) Hypertension: Plan: Continue with metoprolol succinate 50 mg p.o. daily Hold SHERMAN due to MADDI (11) Acute kidney injury: Plan: likely 2nd to over-diuresis hold lasix hold SHERMAN serial BMPs (12) Status post below knee amputation of right lower extremity: Plan: patient reports his prosthetic leg is being worked on at [facility] [address] in [place] he has f/u with them in the next few weeks he is otherwise wheelchair dependent when he doesn't have his prosthesis (13) Constipation: Plan: chronic patient has very distended abdomen but he consistently states that it's "always like that" added miralax/senna if no improvement then consider KUB x-ray, consider suppository, etc. despite this issue he is eating robustly without any N/V Plan DVT proph - Lovenox 40 mg SQ q24h PT eval to ensure he can do transfers, etc Admission and Anticipated Discharge Date Admission Date: October 20, 2024 Subjective patient wore BIPAP most of the night overnight he states he "likes the machine" Ks Mendoza has; he didn't like the BIPAP unit he had at home - hasn't used it in several years during my visit he was satting about 90% on his typical 4 L NC O2 denied any dyspnea no cough eating well patient confirmed his prosthetic leg is being worked on by [facility] on [address] in [place] tele overnight wnl Review of Systems Review of Systems: gen - no fevers cv - no chest pain, no PND, no edema pulm - no wheeze GI - constipated "but that's how I am always" (goes every 3-4 days at home); "my belly is always big like this" Physical Exam Physical Exam: gen - resting comfortably in bed, NAD, awake/alert, no respiratory distress neck - no obvious JVD mouth - MMM heart - RRR, s1 s2, no murmur lungs - decreased BS bases, no rales, no wheezes, no increased work of breathing abd - mild-moderately distended - no change from yesterday; again he stated "it's always like that" - states it is no worse than baseline; BS+, NT, no HSM ext - right BKA; left leg w/o edema, pulses left foot 2+ psych - a/o x 3 Results & Data Results & Data Vital Signs (Past 12 Hours) Vital Signs Temp Pulse Pulse Resp BP Pulse Ox O2 Del Method 10/23/24 10:25 High Flow Nasal Cannula 10/23/24 07:43 36.6 C 67 21 109/65 96 Nasal Cannula 10/23/24 07:42 73 10/23/24 07:13 73 16 97 Nasal Cannula 10/23/24 03:35 36.4 C L 78 22 104/71 95 BiPAP 10/23/24 03:08 80 21 94 10/23/24 00:20 21 97 BiPAP 10/22/24 23:16 75 10/22/24 23:14 36.3 C L 78 22 104/66 97 High Flow Nasal Cannula O2 Flow Rate FiO2 10/23/24 10:25 10 10/23/24 07:43 10/23/24 07:42 10/23/24 07:13 9 10/23/24 03:35 10/23/24 03:08 60 10/23/24 00:20 60 10/22/24 23:16 10/22/24 23:14 Laboratory Results Laboratory Results - last 24 hr 10/20/24 10/22/24 10/22/24 17:53 12:06 17:03 POC Hgb 12.6 L POC Hct 37 L POC pH 7.35 POC pCO2 66 H POC pO2 55 L POC HCO3 37 H POC Total CO2 39 H POC Base Excess 11.0 H POC ABG O2 Sat 85.0 L VBG pH VBG pCO2 VBG pO2 VBG HCO3 VBG O2 Saturation VBG Base Excess POC Sodium 138 Sodium POC Potassium 4.6 Potassium Chloride Carbon Dioxide Anion Gap BUN Creatinine Est Cr Clr Drug Dosing eGFR POC Glucose 126 H 132 H Fasting Glucose Calcium 10/22/24 10/23/24 10/23/24 20:29 05:42 07:07 POC Hgb POC Hct POC pH POC pCO2 POC pO2 POC HCO3 POC Total CO2 POC Base Excess POC ABG O2 Sat VBG pH 7.30 L VBG pCO2 80 H VBG pO2 24 VBG HCO3 39 VBG O2 Saturation < 60.0 VBG Base Excess 9.6 POC Sodium Sodium 138 POC Potassium Potassium 4.8 Chloride 97 L Carbon Dioxide 40 H Anion Gap 1 L BUN 43 H Creatinine 1.86 H Est Cr Clr Drug Dosing 46.3 eGFR 38.69 POC Glucose 117 H Fasting Glucose 110 H Calcium 9.2 10/23/24 07:45 POC Hgb POC Hct POC pH POC pCO2 POC pO2 POC HCO3 POC Total CO2 POC Base Excess POC ABG O2 Sat VBG pH VBG pCO2 VBG pO2 VBG HCO3 VBG O2 Saturation VBG Base Excess POC Sodium Sodium POC Potassium Potassium Chloride Carbon Dioxide Anion Gap BUN Creatinine Est Cr Clr Drug Dosing eGFR POC Glucose 119 H Fasting Glucose Calcium PG Care Time/CCT Total # of Minutes Spent Total Time Spent with Patient: Total time spent is greater than 50% in coordination of care (as documented) at patient's floor/unit and/or counseling patient: Coding Level of Care Code 96198 SUB INP/OBS CARE 3/50MIN Diagnoses Acute on chronic respiratory failure with hypoxia J96.21 Pneumonia J18.9 COPD exacerbation J44.1 (HFpEF) heart failure with preserved ejection fraction I50.30 Pulmonary hypertension I27.20 PAD (peripheral artery disease) I73.9 BETTE (obstructive sleep apnea) G47.33 Type 2 diabetes mellitus with diabetic peripheral angiopathy and gangrene, with long-term current use of insulin E11.52; Z79.4 Diabetes mellitus complication status: with circulatory complication Diabetes mellitus terminal block assembler insulin use: with care home use Ex-smoker Z87.891 Primary hypertension I10 Hypertension type: primary hypertension Acute kidney injury N17.9 Status post below knee amputation of right lower extremity Z89.511 Constipation K59.00 (8) Type 2 diabetes mellitus Diabetes mellitus complication status: with circulatory complication Diabetes mellitus terminal block assembler insulin use: with terminal block assembler use Qualified Code(s): E11.52 - Type 2 diabetes mellitus with diabetic peripheral angiopathy with gangrene; Z79.4 - senior care (current) use of insulin (10) Hypertension Hypertension type: primary hypertension Qualified Code(s): I10 - Essential (primary) hypertension
--- NOTE | 2024-10-23 12:29 | Pulmonary Consultation ---
Date of Consultation October 23, 2024 Assessment & Plan (1) Acute on chronic respiratory failure with hypoxia: (2) (HFpEF) heart failure with preserved ejection fraction: (3) Pulmonary hypertension: (4) Abnormal chest CT: (5) BETTE (obstructive sleep apnea): Plan CT chest 10/23/2024 personally reviewed: Collapse of the left upper lobe (unchanged 03/2021) Calcified polyp at the uptake of left upper lobe Elevated right hemidiaphragm Cardiomegaly No significant mediastinal lymphadenopathy 2D echo 10/23/2024: EF 60-65%, grade 1 diastolic dysfunction, mild concentric LVH, RV moderately dilated with reduced systolic function, RVSP 30-40 mmHg --Acute on chronic hypoxic respiratory failure Usually on 4 L oxygen at home [id number] Likely secondary to CHF exacerbation Pulmonary hypertension BNP 204 Respiratory BioFire negative for everything Procalcitonin negative, nasal MRSA negative Absolute eosinophil count 530 on 10/22/2024 --Abnormal chest CT Patient has atelectasis of the left upper lobe with a calcified 8 mm opacity at the takeoff Patient did have bronchoscopy done 04/06/2021 which showed sessile mobile polyp right at the takeoff of the left upper lobe and was negative for malignancy I would recommend Interventional pulmonary follow-up as an outpatient --Pulmonary hypertension Likely combination of type II as well as untreated sleep apnea --BETTE Noncompliant with CPAP --Ex-smoker 45-ptss-vnye smoking history, quit at the age of 50 Encouraged to continue abstinence from smoking Plan: Patient has history of noncompliance with BiPAP at home Importance of compliance explained I do not suspect patient to have pneumonia of the left upper lobe rather atelectasis. When it comes to the chronic collapse of the left upper lobe, I had seen him back in March 2021 and recommended him to follow-up with the interventional pulmonary to see if they are able to get rid of the polyp Case discussed with primary team Please note the above document was generated using voice recognition software. It may contain grammatical, syntax or spelling errors.Any formal questions or concerns about the content, text or information contained within the body of this dictation should be directly addressed to the provider for clarification. History of Present Illness Attending Physician: Merrick Ariza MD History of Present Illness 69-year-old male admitted to the hospital with complaints of shortness of breath Past medical history: HFpEF, peripheral arterial disease, CKD, diabetes type 2, BETTE on BiPAP with noncompliance, COPD on 3 L oxygen at home Pulmonary consulted for the same At the time of examination patient was 9 L nasal cannula saturating 99%, I went down to 4 L He was not in any respiratory distress He did use BiPAP overnight. Denies any fever or chills Does complain of periodic cough. Denies any hemoptysis He is compliant with his inhalers at home Unfortunately there is issues with BiPAP machine at home and he has not been using it He says he is not comfortable with the mask But he like the mask which he has in the hospital Social history: Approximately 38-vmlk-heji smoking history, quit at the age of 50. Used to work in [employer], did not wear any mask No history of lung cancer in the family Allergies Allergy/AdvReac Type Severity Reaction Status Date / Time empagliflozin Allergy Intermediate Nausea, Verified 05/10/24 16:21 [From Jardiance] Dizziness nitroglycerin Allergy Intermediate Unknown - Unverified 05/10/24 16:17 Was just told to not take it as precaution Home Medications Medication Instructions Recorded Confirmed Type aspirin 81 mg chewable tablet 81 mg PO DAILY 08/07/24 10/20/24 History (Children's Aspirin) cilostazol 100 mg tablet 100 mg PO BID 08/07/24 10/20/24 History clopidogrel 75 mg tablet 75 mg PO DAILY 08/07/24 10/20/24 History furosemide 40 mg tablet 40 mg PO BID 08/07/24 10/20/24 History glipizide 5 mg tablet 5 mg PO BID 08/07/24 10/20/24 History insulin glargine 100 unit/mL (3 50 unit subcut BID 08/07/24 10/20/24 History mL) subcutaneous pen (Lantus Solostar U-100 Insulin) lisinopril 30 mg tablet 30 mg PO UD 08/07/24 10/20/24 History metformin 1,000 mg tablet 1,000 mg PO BID 08/07/24 10/20/24 History metoprolol succinate 50 mg 50 mg PO DAILY 08/07/24 10/20/24 History tablet,extended release 24 hr nortriptyline 25 mg capsule 25 mg PO HS 08/07/24 10/20/24 History omeprazole 40 mg capsule,delayed 40 mg PO DAILY 08/07/24 10/20/24 History release rosuvastatin 10 mg tablet 10 mg PO DAILY 08/07/24 10/20/24 History Patient History Medical History Gangrene due to arterial insufficiency Septic shock Pulmonary hypertension Hyperlipidemia Family History Other Family history non-contributory Social History Smoking Status: Former smoker Tobacco Type: Cigarettes Cigarettes Per Day: na; Second Hand Exposure: No; Do You Dip or Chew Tobacco: No; Hx Alcohol Use: Yes Alcohol type: beer Hx Substance Use: No Preferred Language: Sinhala Communication Ability: Effective Park Guard Required: No Beliefs That Will Affect Care: None Current Living Situation: Family Current Living Situation Comment: with son and daughter inlaw How many Children do You have: 5 Feels Safe at Home: Yes Assistive Devices: None Review of Systems 2 Review of Systems: All systems reviewed & are unremarkable except as noted in HPI & below Physical Exam 2 Physical Exam: Constitutional: No acute distress HEENT: EOMI, PERRLA, hard to hear Respiratory system: Decreased air entry on the right side, no wheeze, no rhonchi, positive crackles bilaterally CVS: S1-S2 positive, positive S3 Abdomen: Soft, nontender, nondistended, positive bowel sounds x4, obese Extremities: +2 pulses bilaterally radialis/ dorsalis pedis, no cyanosis, right BKA, +1 pitting edema left lower extremity Neuro: Awake alert oriented x3 Psych: Normal mood and affect G/U: Positive Choi Skin: no rashes, warm and dry Lymphatic: no cervical or axillary lymphadenopathy Results & Data Results & Data Vital Signs (Past 12 Hours) Vital Signs Temp Pulse Pulse Resp BP Pulse Ox O2 Del Method 10/23/24 11:48 36.7 C 85 15 135/81 90 Nasal Cannula 10/23/24 10:25 High Flow Nasal Cannula 10/23/24 07:43 36.6 C 67 21 109/65 96 Nasal Cannula 10/23/24 07:42 73 10/23/24 07:13 73 16 97 Nasal Cannula 10/23/24 03:35 36.4 C L 78 22 104/71 95 BiPAP 10/23/24 03:08 80 21 94 O2 Flow Rate FiO2 10/23/24 11:48 10/23/24 10:25 10 10/23/24 07:43 10/23/24 07:42 10/23/24 07:13 9 10/23/24 03:35 10/23/24 03:08 60 Laboratory Results 10/22/24 06:02 10/23/24 05:42 PG Care Time/CCT Total # of Minutes Spent Total Time Spent with Patient: Total time spent is greater than 50% in coordination of care (as documented) at patient's floor/unit and/or counseling patient: Coding Level of Care Code 75999 INT INP/OBS CARE 3/75MIN Diagnoses Acute on chronic respiratory failure with hypoxia J96.21 (HFpEF) heart failure with preserved ejection fraction I50.30 Pulmonary hypertension I27.[address] R93.89 BETTE (obstructive sleep apnea) G47.33
[2024-10-23] MEDS: SENNA 8.6 MG TAB PO SCH (12:31)
[2024-10-23] MEDS: POLYETHYLENE (MIRALAX) 17 GM PACK PO SCH (12:31)
--- NOTE | 2024-10-23 13:03 | XCELERA ---
[id number]
[2024-10-24 04:33] LABS: iSTAT Arterial Blood Gas HCO3 34 meg/L (19-24); iSTAT Arterial Blood Gas pCO2 52 mmHg (35-46); iSTAT Arterial Blood Gas pH 7.43 (7.35-7.45); iSTAT Arterial Blood Gas pO2 76 mmHg (80-95); iSTAT Carbon Dioxide 36 mmol/L (24-31); iSTAT Hematocrit 32 % (42-52); iSTAT Hemoglobin 10.9 g/dl (14.0-18.0); iSTAT Potassium 4.4 mmol/L (3.3-5.0); iSTAT Sodium 137 mmol/L (135-144)
[2024-10-24 06:42] LABS: Calcium 9.2 mg/dl (8.6-10.3); Creatinine Clr Calc Pharmacy 65.7 ml/min; Potassium 4.5 mmol/L (3.5-5.1)
--- NOTE | 2024-10-24 08:41 | Hospitalist Progress Note ---
Date of Service October 24, 2024 Assessment & Plan (1) Acute on chronic respiratory failure with hypoxia: Plan: with hypoxia AND hypercapnia, secondary to chronic lung findings and copd copd exacerbatio nalso component, not on steroids acute component possible for HFpEF but developed Dylan from diuresis cont BIPAP with sleep/HS cont NC o2 during the day he does not have BIPAP at home - hasn't used in "years" Need to swap BIPAP for Trilogy/AVAPS? 06-shcl-rpwv smoking history. Quit smoking 20 years ago Pulmonary medicine feels has chronic YASMEEN and L lingula atelectasis from endobronchial polyp, will need interventional pulm follow up, does not feel has significant pnemonia (2) Pneumonia: Plan: b/l as seen on most recent chest x-ray, refuted by pulm med community-acquired complete 5 days antibiotics LD 10/24 MRSA swab neg - defer on coverage for such (3) (HFpEF) heart failure with preserved ejection fraction: Plan: Echocardiogram 12/10/2023 Left ventricular ejection fraction estimated at 60 to 65%. Grade 1 diastolic dysfunction Mild to moderate tricuspid regurgitation Right ventricular systolic pressure is elevated at 50 to 60 mmHg Right ventricular systolic function reduce c/w cor pulmonale repeat echo--> severe RV dysfunction, moderate pulmonary HTN, normal EF 60-65%, grade 1 diastolic dysfunction Resolved DYLAN( with CKD3) in setting of attempts at diuresis earlier in the stay, daryn i held; does not appear volume overloaded on exam lasix on hold remains on metoprolol for HTN (4) PAD (peripheral artery disease): Plan: Status post right BKA Continue with clopidogrel daily Continue crestor Continue cilostazol Patient quit smoking 20 years ago (5) Type 2 diabetes mellitus: Plan: Hemoglobin A1c 6.7% Holding glipizide and metformin On [employer]-novolog Pharmacy glycemic team assistance appreciated with his management (6) Status post below knee amputation of right lower extremity: Plan: patient reports his prosthetic leg is being worked on at [facility] in [place] he has f/u with them in the next few weeks he is otherwise wheelchair dependent when he doesn't have his prosthesis (7) Constipation: Plan: chronic patient has very distended abdomen but he consistently states that it's "always like that" added miralax/senna if no improvement then consider KUB x-ray, consider suppository, etc. despite this issue he is eating robustly without any N/V Plan DVT proph - Lovenox 40 mg SQ q24h Admission and Anticipated Discharge Date Admission Date: October 20, 2024 Subjective Patient is in good spirits. He is now open minded to try to wear BiPAP at night at home. We are attempting to qualify him for an noninvasive positive pressure ventilation machine with bilevel capabilities. To this and will need a nocturnal oximetry test and morning ABG. Physical Exam Physical Exam: Lungs with of breath sounds diminished throughout but no focal loss no wheeze Card exam is distant regular with a systolic murmur Results & Data Results & Data Vital Signs (Past 12 Hours) Vital Signs Temp Pulse Pulse Resp BP Pulse Ox O2 Del Method 10/24/24 08:22 98.1 F 87 18 116/73 92 Nasal Cannula 10/24/24 07:51 Nasal Cannula 10/24/24 07:16 87 18 94 Nasal Cannula 10/24/24 03:14 97.7 F 89 18 119/77 92 High Flow Nasal Cannula 10/24/24 02:29 87 24 94 10/24/24 00:13 18 97 BiPAP 10/23/24 22:58 97.5 F L 85 21 103/61 94 BiPAP 10/23/24 21:47 84 10/23/24 21:46 81 20 97 O2 Flow Rate FiO2 10/24/24 08:22 4 10/24/24 07:51 4 10/24/24 07:16 5 10/24/24 03:14 10/24/24 02:29 40 10/24/24 00:13 40 10/23/24 22:58 10/23/24 21:47 10/23/24 21:46 40 Laboratory Results Reviewed hemoglobin Reviewed [id number]-sw-trsg ABG Reviewed chemistry PG Care Time/CCT Total # of Minutes Spent Total Time Spent with Patient: Total time spent is greater than 50% in coordination of care (as documented) at patient's floor/unit and/or counseling patient: Coding Level of Care Code 88032 SUB INP/OBS CARE 3/50MIN Diagnoses Acute on chronic respiratory failure with hypoxia J96.21 Pneumonia J18.9 (HFpEF) heart failure with preserved ejection fraction I50.30 PAD (peripheral artery disease) I73.9 Type 2 diabetes mellitus with diabetic peripheral angiopathy and gangrene, with long-term current use of insulin E11.52; Z79.4 Diabetes mellitus complication status: with circulatory complication Diabetes mellitus intermodal customer service insulin use: with usp use Status post below knee amputation of right lower extremity Z89.511 Constipation K59.00 (5) Type 2 diabetes mellitus Diabetes mellitus complication status: with circulatory complication Diabetes mellitus intermodal customer service insulin use: with intermodal customer service use Qualified Code(s): E11.52 - Type 2 diabetes mellitus with diabetic peripheral angiopathy with gangrene; Z79.4 - group home (current) use of insulin
--- NOTE | 2024-10-24 08:41 | Pulmonology Progress Note ---
Date of Service October 24, 2024 Assessment & Plan (1) Acute on chronic respiratory failure with hypoxia: (2) (HFpEF) heart failure with preserved ejection fraction: (3) Pulmonary hypertension: (4) Abnormal chest CT: (5) BETTE (obstructive sleep apnea): Plan CT chest 10/23/2024 personally reviewed: Collapse of the left upper lobe (unchanged 03/2021) Calcified polyp at the uptake of left upper lobe Elevated right hemidiaphragm Cardiomegaly No significant mediastinal lymphadenopathy 2D echo 10/23/2024: EF 60-65%, grade 1 diastolic dysfunction, mild concentric LVH, RV moderately dilated with reduced systolic function, RVSP 30-40 mmHg 10/24/2024: ABG 7. --Acute on chronic hypoxic hypercapnic respiratory failure Usually on 4 L oxygen at home [id number] Hypoxia is likely from CHF exacerbation with cor pulmonale Hypercapnia likely from noncompliance with BiPAP and the patient with history of BETTE/OHS BNP 204 Respiratory BioFire negative for everything Procalcitonin negative, nasal MRSA negative Absolute eosinophil count 530 on 10/22/2024 --Abnormal chest CT Patient has atelectasis of the left upper lobe with a calcified 8 mm opacity at the takeoff Patient did have bronchoscopy done 04/06/2021 which showed sessile mobile polyp right at the takeoff of the left upper lobe and was negative for malignancy I would recommend Interventional pulmonary follow-up as an outpatient --Pulmonary hypertension Likely combination of type II as well as untreated sleep apnea --BETTE Noncompliant with CPAP --Ex-smoker 10-foju-fuql smoking history, quit at the age of 50 Encouraged to continue abstinence from smoking Plan: 10/24/2024: ABG 7. Patient has history of noncompliance with BiPAP at home Importance of compliance explained. He is comfortable with the mask that we have as well as our setting. Can discharge him on the current settings and give him similar mask I do not suspect patient to have pneumonia of the left upper lobe rather atelectasis. When it comes to the chronic collapse of the left upper lobe, I had seen him back in March 2021 and recommended him to follow-up with the interventional pulmonary to see if they are able to get rid of the polyp Please note the above document was generated using voice recognition software. It may contain grammatical, syntax or spelling errors.Any formal questions or concerns about the content, text or information contained within the body of this dictation should be directly addressed to the provider for clarification. Admission and Anticipated Discharge Date Admission Date: October 20, 2024 Subjective Patient seen and examined at bedside. No acute distress, no adverse events overnight He tolerated the BiPAP all night. States that this BiPAP is more comfortable to him than the one he has at home. He was saturating on 5 L went down to 3 L Fair appetite, no nausea vomiting Stated that shortness of breath has improved Review of Systems 2 Review of Systems: All systems reviewed & are unremarkable except as noted in Subjective Physical Exam 2 Physical Exam: Constitutional: No acute distress HEENT: EOMI, PERRLA, hard to hear Respiratory system: Decreased air entry on the right side, no wheeze, no rhonchi, positive crackles bilaterally CVS: S1-S2 positive, positive S3 Abdomen: Soft, nontender, nondistended, positive bowel sounds x4, obese Extremities: +2 pulses bilaterally radialis/ dorsalis pedis, no cyanosis, right BKA, +1 pitting edema left lower extremity Neuro: Awake alert oriented x3 Psych: Normal mood and affect G/U: Positive Choi Skin: no rashes, warm and dry Lymphatic: no cervical or axillary lymphadenopathy Results & Data Results & Data Vital Signs (Past 12 Hours) Vital Signs Temp Pulse Pulse Resp BP Pulse Ox O2 Del Method 10/24/24 08:22 36.7 C 87 18 116/73 92 Nasal Cannula 10/24/24 07:51 Nasal Cannula 10/24/24 07:16 87 18 94 Nasal Cannula 10/24/24 03:14 36.5 C 89 18 119/77 92 High Flow Nasal Cannula 10/24/24 02:29 87 24 94 10/24/24 00:13 18 97 BiPAP 10/23/24 22:58 36.4 C L 85 21 103/61 94 BiPAP 10/23/24 21:47 84 10/23/24 21:46 81 20 97 O2 Flow Rate FiO2 10/24/24 08:22 4 10/24/24 07:51 4 10/24/24 07:16 5 10/24/24 03:14 10/24/24 02:29 40 10/24/24 00:13 40 10/23/24 22:58 10/23/24 21:47 10/23/24 21:46 40 Laboratory Results 10/22/24 06:02 10/24/24 05:44 PG Care Time/CCT Total # of Minutes Spent Total Time Spent with Patient: Total time spent is greater than 50% in coordination of care (as documented) at patient's floor/unit and/or counseling patient: Coding Level of Care Code 12197 SUB INP/OBS CARE 3/50MIN Diagnoses Acute on chronic respiratory failure with hypoxia J96.21 (HFpEF) heart failure with preserved ejection fraction I50.30 Pulmonary hypertension I27.[address] R93.89 BETTE (obstructive sleep apnea) G47.33
[2024-10-24] MEDS: LANTUS PER UNIT CHARGE SC SCH (20:54)
[2024-10-25 03:17] VITALS: TEMP 97.9
[2024-10-25 05:03] LABS: Base Excess ABG 11.6 mEq/L (-9-1.8); HCO3 ABG 38 mmol/L (19-24); Oxygen Saturation ABG 96.6 % (90-95); PCO2 ABG 56 mmHg (35-46); PO2 ABG 74 mmHg (80-95); pH ABG 7.44 (7.35-7.45)
[2024-10-25 05:07] LABS: Allen Test Pos (Pos)
--- NOTE | 2024-10-25 08:45 | Pulmonology Progress Note ---
Date of Service October 25, 2024 Assessment & Plan (1) Acute on chronic respiratory failure with hypoxia: (2) (HFpEF) heart failure with preserved ejection fraction: (3) Pulmonary hypertension: (4) Abnormal chest CT: (5) BETTE (obstructive sleep apnea): Plan CT chest 10/23/2024 personally reviewed: Collapse of the left upper lobe (unchanged 03/2021) Calcified polyp at the uptake of left upper lobe Elevated right hemidiaphragm Cardiomegaly No significant mediastinal lymphadenopathy 2D echo 10/23/2024: EF 60-65%, grade 1 diastolic dysfunction, mild concentric LVH, RV moderately dilated with reduced systolic function, RVSP 30-40 mmHg 10/24/2024: ABG 7.43/52/76 --Acute on chronic hypoxic hypercapnic respiratory failure Usually on 4 L oxygen at home qqcte-iap-uppfl Hypoxia is likely from CHF exacerbation with cor pulmonale Hypercapnia likely from noncompliance with BiPAP and the patient with history of BETTE/OHS BNP 204 Respiratory BioFire negative for everything Procalcitonin negative, nasal MRSA negative Absolute eosinophil count 530 on 10/22/2024 --Abnormal chest CT Patient has atelectasis of the left upper lobe with a calcified 8 mm opacity at the takeoff Patient did have bronchoscopy done 04/06/2021 which showed sessile mobile polyp right at the takeoff of the left upper lobe and was negative for malignancy I would recommend Interventional pulmonary follow-up as an outpatient --Pulmonary hypertension Likely combination of type II as well as untreated sleep apnea --BETTE Noncompliant with CPAP --Ex-smoker [id number] smoking history, quit at the age of 50 Encouraged to continue abstinence from smoking Plan: -6 L since coming to the hospital Patient has history of noncompliance with BiPAP at home Importance of compliance explained. He is comfortable with the mask that we have as well as our setting. Can discharge him on the current settings and give him similar mask I do not suspect patient to have pneumonia of the left upper lobe rather atelectasis. When it comes to the chronic collapse of the left upper lobe, I had seen him back in March 2021 and recommended him to follow-up with the interventional pulmonary to see if they are able to get rid of the polyp No further recommendation from pulmonary perspective, will sign off Please call directly with any questions Please note the above document was generated using voice recognition software. It may contain grammatical, syntax or spelling errors.Any formal questions or concerns about the content, text or information contained within the body of this dictation should be directly addressed to the provider for clarification. Admission and Anticipated Discharge Date Admission Date: October 20, 2024 Subjective Patient seen and examined at bedside. No acute distress, no adverse events overnight He was saturating 97% on 4 L nasal cannula, I went down to 2 L Did use BiPAP overnight. Tolerated well Denies any abdominal pain Fair appetite, no nausea vomiting Review of Systems 2 Review of Systems: All systems reviewed & are unremarkable except as noted in Subjective Physical Exam 2 Physical Exam: Constitutional: No acute distress HEENT: EOMI, PERRLA, hard to hear Respiratory system: Decreased air entry on the right side, no wheeze, no rhonchi, positive crackles bilaterally CVS: S1-S2 positive, positive S3 Abdomen: Soft, nontender, nondistended, positive bowel sounds x4, obese Extremities: +2 pulses bilaterally radialis/ dorsalis pedis, no cyanosis, right BKA, +1 pitting edema left lower extremity Neuro: Awake alert oriented x3 Psych: Normal mood and affect G/U: Positive Choi Skin: no rashes, warm and dry Lymphatic: no cervical or axillary lymphadenopathy Results & Data Results & Data Vital Signs (Past 12 Hours) Vital Signs Temp Pulse Pulse Pulse Resp BP Pulse Ox 10/25/24 08:44 98 H 20 119/70 91 10/25/24 07:42 101 H 20 93 10/25/24 03:16 36.6 C 93 H 20 158/97 H 93 10/25/24 02:53 88 10/25/24 01:53 85 16 95 10/25/24 01:52 90 10/25/24 00:55 80 10/24/24 23:29 36.5 C 85 20 135/79 95 10/24/24 22:35 Pulse Ox O2 Del Method O2 Del Method O2 Flow Rate O2 Flow Rate 10/25/24 08:44 Nasal Cannula 4 10/25/24 07:42 Nasal Cannula 4 10/25/24 03:16 Nasal Cannula 4 10/25/24 02:53 91 Nasal Cannula 4 10/25/24 01:53 Nasal Cannula 4 10/25/24 01:52 10/25/24 00:55 91 Nasal Cannula 4 10/24/24 23:29 Nasal Cannula 4 10/24/24 22:35 Nasal Cannula 3 Laboratory Results 10/22/24 06:02 10/24/24 05:44 PG Care Time/CCT Total # of Minutes Spent Total Time Spent with Patient: Total time spent is greater than 50% in coordination of care (as documented) at patient's floor/unit and/or counseling patient: Coding Level of Care Code 59342 SUB INP/OBS CARE 2/35MIN Diagnoses Acute on chronic respiratory failure with hypoxia J96.21 (HFpEF) heart failure with preserved ejection fraction I50.30 Pulmonary hypertension I27.[address] R93.89 BETTE (obstructive sleep apnea) G47.33
[2024-10-25] MEDS: FUROSEMIDE 40 MG TAB PO SCH (09:03)
[2024-10-25] MEDS: LANTUS PER UNIT CHARGE SC SCH (09:11)
--- NOTE | 2024-10-25 10:04 | Pharmacy Report ---
Pharmacy Glycemic Short Note 2 - Date of Service October 25, 2024 - Glycemic Short BSG Results (Last 24 hours): 10/24/24 10/24/24 10/24/24 11:44 17:08 20:11 POC Glucose 141 H 192 H 173 H 10/25/24 07:57 POC Glucose 192 H OUTPATIENT ANTIDIABETIC REGIMEN: * Lantus 50 units SQ BID * metformin 1000mg BIDM * glipizide 5mg BID * HbA1c 6.7% (10/21/24) ASSESSMENT: 10/25: * Oliverio received 48 units of SC insulin yesterday (20 units basal + 28 units bolus) with BSGs ranging from 141 - 192 mg/dL. * Fasting BSG trending up, 119 -> 166 -> 192 mg/dL, current basal dose is significantly less than what patient utilizes at home. Will increase Lantus. * Post prandial BSGs are slighlty above goal. Will tighten carb coverage. 10/22: * Oliverio is a 69 year old male admitted with pnemonia and a history of type 2 insulin dependent diabetes mellitus. Pharmacy has been consulted to assist with glycemic management while inpatient. * Fasting BSG this AM acceptable, Lantus held yesterday due to episodes of hypoglycemia, suspect will need significantly less basal insulin while inpatient. Will start basal insulin at a weight based stress of 1 today and BSGs trending up and no hypoglycemia noted. * NovoLog initiated at a weight based stress of 2, no changes at this time. He is receiving IV ceftriaxone and oral doxycycline to treat pneumonia. PLAN FOR INPATIENT GLYCEMIC CONTROL: * Hold outpatient oral diabetes medications * Basal insulin * Lantus 15 units SC BID * Bolus insulin * NovoLog per scale ACHS or Q6hrs while NPO * Goal Range: Low 110 mg/dL - High 140 mg/dL * Correction Factor: 20 mg/dL/unit * Nutritional / Prandial insulin per carb ratio of 1 unit per 7 grams CHO consumed
[2024-10-25 11:48] VITALS: BP 116/77
[2024-10-25 12:15] VITALS: RESP 16; O2SAT 92
--- NOTE | 2024-10-25 14:26 | Communication Note ---
Date of Service: October 25, 2024 Bipap ordered to treat pts hypercapnia, cpap will not treat hypercapnia
--- NOTE | 2024-10-25 14:59 | Discharge Summary ---
Discharge Summary Date of Service October 25, 2024 Principal Dx & Hospital Course #1 = Principal Diagnosis (1) Acute on chronic respiratory failure with hypoxia: with hypoxia AND hypercapnia, secondary to chronic lung findings and copd copd exacerbatio nalso component, not on steroids acute component possible for HFpEF but developed Maddi from diuresis cont BIPAP with sleep/HS cont NC o2 during the day he does not have BIPAP at home - hasn't used in "years" Need to swap BIPAP for Trilogy/AVAPS? 46-diut-vvmm smoking history. Quit smoking 20 years ago Pulmonary medicine feels has chronic YASMEEN and L lingula atelectasis from endobronchial polyp, will need interventional pulm follow up, does not feel has significant pnemonia (2) Pneumonia: b/l as seen on most recent chest x-ray, refuted by pulm med community-acquired complete 5 days antibiotics LD 10/24 MRSA swab neg - defer on coverage for such (3) (HFpEF) heart failure with preserved ejection fraction: Echocardiogram 12/10/2023 Left ventricular ejection fraction estimated at 60 to 65%. Grade 1 diastolic dysfunction Mild to moderate tricuspid regurgitation Right ventricular systolic pressure is elevated at 50 to 60 mmHg Right ventricular systolic function reduce c/w cor pulmonale repeat echo--> severe RV dysfunction, moderate pulmonary HTN, normal EF 60-65%, grade 1 diastolic dysfunction Resolved MADDI( with CKD3) in setting of attempts at diuresis earlier in the stay, daryn i held; does not appear volume overloaded on exam lasix on hold remains on metoprolol for HTN (4) PAD (peripheral artery disease): Status post right BKA Continue with clopidogrel daily Continue crestor Continue cilostazol Patient quit smoking 20 years ago (5) Type 2 diabetes mellitus: Hemoglobin A1c 6.7% Holding glipizide and metformin On lantus-novolog Pharmacy glycemic team assistance appreciated with his management (6) Status post below knee amputation of right lower extremity: patient reports his prosthetic leg is being worked on at [employer] on [address] [email or web address] he has f/u with them in the next few weeks he is otherwise wheelchair dependent when he doesn't have his prosthesis (7) Constipation: chronic patient has very distended abdomen but he consistently states that it's "always like that" added miralax/senna if no improvement then consider KUB x-ray, consider suppository, etc. despite this issue he is eating robustly without any N/V Plan DVT proph - Lovenox 40 mg SQ q24h Admission HPI Per Admitting Provider Oliverio is a 69-year-old male with PMH of COPD, HFpEF, s/p BKA, right ventricular failure, PAD, CKD, T2DM, and BETTE. He presented on 10/20 for SOB, chest tightness, and wheezing. Patient's symptoms began on Monday 10/16 and have gradually worsened. Patient is on supplemental oxygen at baseline (4L NC). He endorses both SOB at rest and with exertion, as well as chest pressure/tightness. No prior history of DVT/PE. Patient is on aspirin for history of right foot amputation, and may have had stents placed at [facility] in 2018. Patient took his regular morning medicine today; no recent change in medication. He denies cough or sick contacts. Patient denies smoking, tobacco use, recent alcohol use. Patient's SpO2 is 97% on 6L NC. ED course: Ceftriaxone 2000 mg IV Doxycycline 100 mg p.o. Magnesium sulfate 1 g IV ROS: Patient endorses SOB at rest and with exertion, lightheadedness, MOORE, chest pressure/tightness, and chest palpitations. Patient denies fever, chills, night-sweats, dizziness, pleuritic CP, cough, hemoptysis, abdominal pain, N/V/D, burning with urination, blood in the urine/stool, or numbness/tingling in the arms or legs. Discharge Plan Discharge Items Patient Disposition: Home - Self-Care Reason For Visit: PNA,HYPOXIA Discharge Diagnosis: Possible pneumonia versus reactive airway disease Activity: Resume your previous activity Non-emergency contact: Primary Care Provider and [employer] Operator Call non-emergency contact if: you have any medication questions and your symptoms worsen Follow-up/Referrals: Mckenna Fernando PA-C [Primary Care Provider] - Diet: Carb Consistent or DM2 and Low Sodium (2gm) Addtl Attending Provider Instructions: You were admitted to [facility] from October 20 to 2024 due to low oxygen levels. You were diagnosed with possible pneumonia and received 5 days of antibiotics. Also some concern for heart failure and received diuretics although this led to worsening renal function therefore low suspicion of this diagnosis. Likely you had a degree of reactive airway disease which is now resolved. You are also diagnosed with obstructive sleep apnea and underwent testing that showed you required BiPAP at night. This was ordered and will be s et up for you at home in due course. Please follow-up with pulmonology on discharge for chronic collapse of your left upper lobe to consider follow-up with interventional pulmonology. No changes to medications were made on discharge. Pending Studies at Discharge: No Stand-Alone Forms: My [facility], Smoking Cessation Medications and DC Order Prescriptions: Continued metoprolol succinate 50 mg tablet extended release 24 hr 50 mg PO DAILY rosuvastatin 10 mg tablet 10 mg PO DAILY omeprazole 40 mg capsule,delayed release(DR/EC) 40 mg PO DAILY aspirin [Children's Aspirin] 81 mg Tablet,Chewable 81 mg PO DAILY Rx Instructions: otc unable to verify glipizide 5 mg tablet 5 mg PO BID metformin 1,000 mg tablet 1,000 mg PO BID cilostazol 100 mg tablet 100 mg PO BID lisinopril 30 mg Tablet 30 mg PO UD Rx Instructions: 30 mg po daily. last filled 04/21 90 day supply. Most recent fill was for 5mg daily filled 05/13 30 day supply and per family, they think thats the does he takes. furosemide 40 mg tablet 40 mg PO BID Rx Instructions: per daughter has been taking twice a day clopidogrel 75 mg tablet 75 mg PO DAILY nortriptyline 25 mg capsule 25 mg PO HS insulin glargine [Lantus Solostar U-100 Insulin] 100 unit/mL (3 mL) insulin pen 50 unit SUBCUT BID Discharge Orders: Discharge Order (Routine); Ordered 10/25/24 Ordered By: Merrick Lorenzo/Other Patient Handouts: Managing Type 2 Diabetes Admission Data Admit Date/Time: 10/20/24 17:01 Attending Provider: Merrick Porter Admit Provider: Enrique Wharton Primary Care Provider: Mckenna Fernando Other Providers: Enrique Wharton; Zheng Molina Other Interventions: Discharge Summary Assessment (RN) Last Done: 10/25/24 12:03 Hospital Stay Data Consultations 10/20/24 15:48 ED Decision to Admit Stat 10/23/24 09:22 Consult Pulmonology Routine Diagnostic Imagining Performed 10/20/24 17:10 CT chest diagnostic w con Stat Pending Results Patient Have Any Pending Studies at Discharge: No Discharge Instructions Given to Patient (Per Discharging Provider) You were admitted to [facility] from October 20 to 2024 due to low oxygen levels. You were diagnosed with possible pneumonia and received 5 days of antibiotics. Also some concern for heart failure and received diuretics although this led to worsening renal function therefore low suspicion of this diagnosis. Likely you had a degree of reactive airway disease which is now resolved. You are also diagnosed with obstructive sleep apnea and underwent testing that showed you required BiPAP at night. This was ordered and will be set up for you at home in due course. Please follow-up with pulmonology on discharge for chronic collapse of your left upper lobe to consider follow-up with interventional pulmonology. No changes to medications were made on discharge. Coding Diagnoses Acute on chronic respiratory failure with hypoxia J96.21 Pneumonia J18.9 (HFpEF) heart failure with preserved ejection fraction I50.30 PAD (peripheral artery disease) I73.9 Type 2 diabetes mellitus with diabetic peripheral angiopathy and gangrene, with long-term current use of insulin E11.52; Z79.4 Diabetes mellitus long term acute care registered nurse insulin use: with [facility] use Diabetes mellitus complication status: with circulatory complication Status post below knee amputation of right lower extremity Z89.511 Constipation K59.00
[2024-10-25 15:26] VITALS: PULSE 98
== END 2024-10-25 17:15 | disposition home or self-care (01) | DRG 193 ==
LOC: ED 14:12 → SUATTDRO 17:01 → 4W 17:01

== ENCOUNTER 2025-06-27 10:12 | Inpatient (IN) ==
[2025-06-27 10:51] LABS: Hematocrit (blood only) 39.1 % (42.0-52.0); Hemoglobin 11.4 g/dL (14.0-18.0); Immature Granulocytes # (auto) 0.03 K/uL (0.01-0.20); Immature Granulocytes % (auto) 0.3 %; Mean Corpuscular Hemoglobin 23.9 pg (25.0-34.0); Mean Corpuscular Volume 82.0 fL (80.0-100.0); Platelet Count 260 K/uL (130-400); RDW Standard Deviation 50.4 fL (36.4-46.3); Red Blood Count 4.77 M/uL (4.70-6.10); White Blood Count 11.24 K/ul (4.8-10.8)
--- NOTE | 2025-06-27 10:52 | Emergency Department Note ---
Impression & Plan Acute dyspnea, Hypomagnesemia, Cough, Syncope and collapse ED Provider Note HISTORY OF PRESENT ILLNESS: Patient is a 70-year-old male presenting with shortness of breath and cough. Patient reportedly has been having symptoms for the last 3 weeks that have gotten progressively worse. Patient wears 2 to 4 L at baseline. He reportedly has been short of breath initially with just exertion but now both at rest and with exertion. He reports that shortness of breath is worse when he gets up to try to do anything. He denies any recent antibiotic or steroid use. No measured fevers at home, but he has reportedly had the sweats and chills for the last few days. He has had a nonproductive cough. Denies any abdominal pain, nausea or vomiting. Denies any dysuria or hematuria. Denies any notable leg swelling. Denies any chest pain. Daughter at bedside reports the patient had a syncopal episode 4 days ago. He reportedly felt very lightheaded and was lowered to the ground. He did not hit his head or lose consciousness completely. Denies any DVT or PE history. He is on aspirin and Plavix. ROS: as above PHYSICAL EXAM: Constitutional: Patient appears in no acute distress. HENT: Head: Normocephalic and atraumatic. Eyes: EOMI, PERRL Mouth/Throat: Mucous membranes moist. Neck: Trachea midline. Neck supple. Cardiovascular: RRR, No murmurs, rubs or gallops. Intact distal pulses. Pulmonary/Chest: No respiratory distress. Breath sounds clear and equal bilaterally. No wheezes or rales. Abdominal: Abdomen soft, no tenderness, rebound or guarding. Musculoskeletal: No edema, tenderness or deformity noted. Right BKA Skin: Warm and dry. No rash, erythema, pallor or cyanosis Psychiatric: Appropriate mood and affect for situation. Neurological: Alert and keenly responsive. CN II-XII grossly intact, moving all extremities equally and fully. MDM: - Vitals signs stable. - History obtained via patient. History as above. - Chronic conditions affecting care: CHF; COPD; CKD; DM-2; CAD - Differential diagnoses include, but are not limited to: Congestive heart failure; acute coronary syndrome; COPD/asthma exacerbation; pulmonary edema; pulmonary embolism; pneumonia; pneumothorax; viral syndrome - Order placed for continuous cardiac monitoring. At this time, monitor showed rate of 77 bpm with normal sinus rhythm, per my interpretation. - External medical records reviewed. Discharge summary dated 10/25/2024 was reviewed. Patient was admitted for acute on chronic respiratory failure with hypoxia and heart failure. - EKG image interpreted by myself showed normal sinus rhythm. Rate 87 bpm. QT 400. No acute ischemic changes. Noted to have a right bundle branch block. - Laboratory workup interpreted by myself showed leukocytosis (WBC 11.24); normal electrolytes other than hypomagnesemia (Mg 1.6); MADDI (Cr 1.63); elevated troponin (42.3); elevated BNP (160) - Viral respiratory panel negative - CXR image reviewed interpreted by myself showed cardiomegaly, per my interpretation. Radiology notes CHF and stranding and patchy opacities in the lung bases. - CT chest wo contrast showed stable appearance of the chest. - Given patient's symptoms and reported syncopal episode, will admit to hospitalist service for further evaluation and management. - Patient given 1g IV magnesium for electrolyte replacement. - Discussion was had with rehabilitation caseworker about patient's case and need for admission - Hospitalist consulted for admission - Patient admitted to [facility] hospitalist service for further evaluation and management. ASSESSMENT AND PLAN: Diagnosis: Acute dyspnea; cough; hypomagnesemia; syncope Plan: Admit Past Med/Surg History Problem List (Updated 06/27/25 @ 14:23 by Janell Francisco MD) Syncope and collapse (Acute) Cough (Acute) Hypomagnesemia (Acute) Acute dyspnea (Acute) Chronic respiratory failure with hypoxia and hypercapnia COPD with emphysema Constipation Status post below knee amputation of right lower extremity Hypoxia (Acute) Elevated brain natriuretic peptide (BNP) level (Acute) Hypomagnesemia (Acute) Acute dyspnea (Acute) RLL pneumonia (Acute) Weight gain (Acute) CHF (congestive heart failure) (Acute) Acute kidney injury COPD exacerbation Acute on chronic respiratory failure with hypoxia Pulmonary edema (Acute) Chronic hypoxemic respiratory failure (Acute) (HFpEF) heart failure with preserved ejection fraction Pulmonary hypertension Ex-smoker Pulmonary nodule S/P below knee amputation Endotracheally intubated RVF (right ventricular failure) Acute and chronic respiratory failure Pressure ulcer of right foot, unstageable Ischemic foot CHF (congestive heart failure) COPD (chronic obstructive pulmonary disease) Acute hyperglycemia (Acute) Acute hyponatremia (Acute) Cellulitis of foot, right (Acute) PAD (peripheral artery disease) (Acute) Occlusion of right popliteal artery (Acute) CKD (chronic kidney disease) stage 2, GFR 60-89 ml/min DVT prophylaxis BETTE (obstructive sleep apnea) Type 2 diabetes mellitus Coronary artery disease (Acute) Hypertension Abnormal pulmonary finding Abnormal chest CT Acute respiratory failure with hypoxia Pneumonia Hypoxia (Acute) Mucus plugging of bronchi (Acute) Medical History Pneumonia involving right lung Chest pain Chronic respiratory failure Gangrene due to arterial insufficiency Septic shock Hyperlipidemia Family History Other Family history non-contributory Social History Smoking Status: Former smoker Tobacco Type: Cigarettes Cigarettes Per Day: na; Second Hand Exposure: No; Do You Dip or Chew Tobacco: No; Hx Alcohol Use: Yes Alcohol type: beer Hx Substance Use: No Preferred Language: [place] Communication Ability: Effective Adobe Layer Required: No Beliefs That Will Affect Care: None Current Living Situation: Family Current Living Situation Comment: with son and daughter inlaw How many Children do You have: 5 Feels Safe at Home: Yes Assistive Devices: None Allergies Allergies Allergy/AdvReac Type Severity Reaction Status Date / Time empagliflozin Allergy Intermediate Nausea, Verified 05/31/25 10:02 [From Jardiance] Dizziness nitroglycerin AdvReac Intermediate Unknown - Unverified 05/31/25 10:02 Was just told to not take it as precaution Home Meds Home Medications Medication Instructions Recorded Confirmed aspirin 81 mg chewable tablet 81 mg PO DAILY 08/07/24 05/31/25 (Children's Aspirin) cilostazol 100 mg tablet 100 mg PO BID 08/07/24 05/31/25 clopidogrel 75 mg tablet 75 mg PO DAILY 08/07/24 05/31/25 furosemide 40 mg tablet 40 mg PO BID 08/07/24 05/31/25 glipizide 5 mg tablet 5 mg PO BID 08/07/24 05/31/25 insulin glargine 100 unit/mL (3 50 unit subcut BID 08/07/24 05/31/25 mL) subcutaneous pen (Lantus Solostar U-100 Insulin) lisinopril 30 mg tablet 30 mg PO UD 08/07/24 05/31/25 metformin 1,000 mg tablet 1,000 mg PO BID 08/07/24 05/31/25 metoprolol succinate 50 mg 50 mg PO DAILY 08/07/24 05/31/25 tablet,extended release 24 hr nortriptyline 25 mg capsule 25 mg PO HS 08/07/24 05/31/25 omeprazole 40 mg capsule,delayed 40 mg PO DAILY 08/07/24 05/31/25 release rosuvastatin 10 mg tablet 10 mg PO DAILY 08/07/24 05/31/25 tirzepatide 2.5 mg/0.5 mL 2.5 mg subcut WK 06/27/25 subcutaneous pen injector (Emma) Previous Rx's Medication Instructions Recorded tiotropium 2.5 mcg-olodaterol 2.5 2 puff inhalation DAILY #4 grams 12/12/24 mcg/actuation mist for inhalation (Stiolto Respimat) Results & Data (ED) Vital Signs Vital Signs - 24 hr 06/27/25 10:12 06/27/25 10:19 06/27/25 10:24 Temperature 36.4 C L Temperature Source Skin Pulse Rate 85 77 Pulse Rate [Apical] Pulse Rhythm Regular Respiratory Rate 20 24 Respiratory Effort / Characteristics Non-Labored Spontaneous Respiratory Depth Normal Respiratory Pattern Regular Blood Pressure 104/68 Blood Pressure [Left Arm] Blood Pressure Mean 80 Blood Pressure Mean [Left Arm] Pulse Oximetry 92 92 92 Oxygen Delivery Method Nasal Cannula Nasal Cannula Nasal Cannula Oxygen Flow Rate 2 2 2 Sepsis Recent Fever Within 48 Hours No Sepsis New/Unexplained Change in Mental Status N/A Sepsis Action Taken by Nursing No Action Required 06/27/25 12:17 06/27/25 12:19 06/27/25 14:04 Temperature Temperature Source Pulse Rate 87 Pulse Rate [Apical] 78 89 Pulse Rhythm Respiratory Rate 18 22 Respiratory Effort / Characteristics Respiratory Depth Respiratory Pattern Blood Pressure Blood Pressure [Left Arm] 125/89 129/85 Blood Pressure Mean Blood Pressure Mean [Left Arm] 101 99 Pulse Oximetry 95 93 Oxygen Delivery Method Nasal Cannula Nasal Cannula Oxygen Flow Rate 2 2 Sepsis Recent Fever Within 48 Hours Sepsis New/Unexplained Change in Mental Status Sepsis Action Taken by Nursing Laboratory Data 06/27/25 10:40 06/27/25 10:40 Lab Results 06/27/25 06/27/25 06/27/25 Range/Units 10:40 11:25 12:35 WBC 11.24 H (4.8-10.8) K/ul RBC 4.77 (4.70-6.10) M/uL Hgb 11.4 L (14.0-18.0) g/dL Hct 39.1 L (42.0-52.0) % MCV 82.0 (80.0-100.0) fL MCH 23.9 L (25.0-34.0) pg MCHC 29.2 L (32.0-36.0) g/dL RDW Std Deviation 50.4 H (36.4-46.3) fL RDW Coeff of Larry 17.2 H (11.5-14.5) % Plt Count 260 (130-400) K/uL MPV 11.6 (9.4-12.4) fL Immature Gran % (Auto) 0.3 % Neut % (Auto) 74.0 % Lymph % (Auto) 11.2 % [place] % (Auto) 8.5 % Eos % (Auto) 5.3 % Baso % (Auto) 0.7 % Neut # (Auto) 8.32 H (1.40-6.50) K/uL Lymph # (Auto) 1.26 (1.20-3.40) K/uL [place] # (Auto) 0.95 H (0.11-0.59) K/uL Eos # (Auto) 0.60 H (0.00-0.50) K/uL Baso # (Auto) 0.08 (0.00-0.20) K/uL Immature Gran # (Auto) 0.03 (0.01-0.20) K/uL PT 12.2 H (9.0-12.0) Seconds INR 1.2 H (0.9-1.1) Sodium 136 (136-145) mmol/L Potassium 5.0 (3.5-5.1) mmol/L Chloride 99 (98-107) mmol/L Carbon Dioxide 31 (21-32) mmol/L Anion Gap 6 (3-11) BUN 41 H (6-23) mg/dl Creatinine 1.63 H (0.6-1.4) mg/dl Est Cr Clr Drug Dosing Not Reportable eGFR 45.05 BUN/Creatinine Ratio 25.2 H (10-20) Glucose 182 H (70-99(Fasting)) mg/dl Calcium 9.3 (8.6-10.3) mg/dl Magnesium 1.6 L (1.7-2.4) mg/dl Total Bilirubin 0.6 (0.2-1.0) mg/dl AST 11 L (13-39) U/L ALT 5 L (7-52) U/L Alkaline Phosphatase 115 H (34-104) U/L Troponin I High Sens 42.3 H 44.0 H (0-20) pg/ml B-Natriuretic Peptide 160 H (0-100) pg/ml Total Protein 6.6 (6.0-8.3) gm/dl Albumin 3.8 (3.4-5.0) gm/dl Globulin 2.8 (2.5-4.0) gm/dl Albumin/Globulin Ratio 1.4 (0.9-2) Adenovirus (PCR) Not Detected (NotDetected) B. pertussis DNA (PCR) Not Detected (NotDetected) B.parapertussis DNA PCR Not Detected (NotDetected) C. pneumoniae DNA (PCR) Not Detected (NotDetected) Coronavirus OC43 (PCR) Not Detected (NotDetected) Coronavirus HKU1 (PCR) Not Detected (NotDetected) Coronavirus 229E (PCR) Not Detected (NotDetected) SARS-CoV-2 (PCR) Not Detected (NotDetected) Coronavirus NL63 (PCR) Not Detected (NotDetected) Human Metapneumovir PCR Not Detected (NotDetected) Influenza Type A (PCR) Not Detected (NotDetected) Influenza Type B (PCR) Not Detected (NotDetected) M. pneumoniae (PCR) Not Detected (NotDetected) Parainfluenza 1 (PCR) Not Detected (NotDetected) Parainfluenza 2 (PCR) Not Detected (NotDetected) Parainfluenza 3 (PCR) Not Detected (NotDetected) Parainfluenza 4 (PCR) Not Detected (NotDetected) RSV (PCR) Not Detected (NotDetected) Entero/Rhino (PCR) Not Detected (NotDetected) Administered Medications Discontinued Medications Magnesium Sulfate/Dextrose (Magnesium Sulfate / D5w) 1 gm in 100 mls @ 100 mls/hr IV NOW STA Stop: 06/27/25 13:27 Last Admin: 06/27/25 13:07 Dose: 100 mls/hr Documented By: ADRIENNE Imaging Data Radiologist's Impression: Chest X-Ray 06/27/25 10:24 XR chest 1V portable CLINICAL HISTORY: Dyspnea COMPARISON STUDY: 10/22/2024 FINDINGS: Stable cardiomegaly with pulmonary vascular congestion. Stable stranding and patchy opacity in the lung bases. No pleural effusion or pneumothorax seen. IMPRESSION: 1. CHF. 2. Stable stranding and patchy opacities in the lung bases. ACT 112: Negative or not required by law. Electronically signed by: Romeo Gerard M.D. 06/27/2025 11:[address] 06/27/25 12:27 CT chest diagnostic wo con CT DOSE: 856.26 mGy.cm CLINICAL HISTORY: 70 years-old Male with cough; shortness of breath. Acute cough with shortness of breath TECHNIQUE: Multiaxial CT images of the chest were performed without contrast. A dose lowering technique was utilized adhering to the principles of ALARA. COMPARISON: Chest CT studies dated 10/20/2024 and 05/10/2024 FINDINGS: Unremarkable thyroid. There are no pathologically enlarged axillary, mediastinal or hilar lymph nodes identified. Moderate cardiomegaly with moderate to extensive coronary artery calcifications. There is a trace pericardial effusion. There is no pneumothorax or pleural effusion. There is minimal intralobular septal thickening of the lungs along with a degree of groundglass densities. Redemonstration of a 9 mm calcified endobronchial density at the takeoff of the left upper lobe bronchus on image 83 series 4. There is moderate left upper lobe airspace opacity with volume loss, unchanged. Visualized portions of the upper abdomen demonstrate small to moderate ascites. Hepatomegaly with hepatic steatosis. No acute fracture or suspicious bone lesion. No suspicious pulmonary nodules are present. Mild esophageal wall thickening redemonstrated. IMPRESSION: 1. Stable appearance of the chest. 2. 9 mm calcified endobronchial lesion at the origin of the left upper lobe bronchus redemonstrated along with atelectasis and partial collapse of the left upper lobe. These findings appear to be stable dating back to 05/10/2024. 3. Upper abdominal ascites again noted. ACT 112: Negative or not required by law. Electronically signed by: Jas Ruiz M.D. 06/27/2025 1:18 PM Discharge Plan Visit Data Chief Complaint: Shortness of Breath/Dyspnea Stated Complaint: SOB, TIGHTNESS CHEST ED Provider: Janell Francisco Discharge Problem: Acute dyspnea, Hypomagnesemia, Cough, Syncope and collapse Patient Disposition: Admitted As Inpatient Condition: Fair Forms Stand Alone Forms: My [facility] [employer] Prescriptions Prescriptions: No Action Stiolto Respimat 2.5-2.5 mcg/actuation mist 2 puff inhalation DAILY Qty: 4 6RF Mounjaro 2.5 mg/0.5 mL pen injector 2.5 mg SUBCUT WK metoprolol succinate 50 mg tablet extended release 24 hr 50 mg PO DAILY rosuvastatin 10 mg tablet 10 mg PO DAILY omeprazole 40 mg capsule,delayed release(DR/EC) 40 mg PO DAILY aspirin [Children's Aspirin] 81 mg Tablet,Chewable 81 mg PO DAILY Rx Instructions: otc unable to verify glipizide 5 mg tablet 5 mg PO BID metformin 1,000 mg tablet 1,000 mg PO BID cilostazol 100 mg tablet 100 mg PO BID lisinopril 30 mg Tablet 30 mg PO UD Rx Instructions: 30 mg po daily. last filled 04/21 90 day supply. Most recent fill was for 5mg daily filled 05/13 30 day supply and per family, they think thats the does he takes. furosemide 40 mg tablet 40 mg PO BID Rx Instructions: per daughter has been taking twice a day clopidogrel 75 mg tablet 75 mg PO DAILY nortriptyline 25 mg capsule 25 mg PO HS insulin glargine [Lantus Solostar U-100 Insulin] 100 unit/mL (3 mL) insulin pen 50 unit SUBCUT BID Referrals Referrals: Mckenna Fernando PA-C [Primary Care Provider] -
[2025-06-27 11:09] LABS: Alanine Aminotransferase 5 U/L (7-52); Albumin Globulin Ratio 1.4 (0.9-2); Albumin Level 3.8 gm/dl (3.4-5.0); Alkaline Phosphatase 115 U/L (34-104); Anion Gap 6 (3-11); Bilirubin,Total 0.6 mg/dl (0.2-1.0); Blood Urea Nitrogen 41 mg/dl (6-23); Calcium 9.3 mg/dl (8.6-10.3); Carbon Dioxide 31 mmol/L (21-32); Chloride 99 mmol/L (98-107); Globulin 2.8 gm/dl (2.5-4.0); Glucose 182 mg/dl (70-99(Fasting)); Magnesium 1.6 mg/dl (1.7-2.4); Potassium 5.0 mmol/L (3.5-5.1); Sodium 136 mmol/L (136-145); Total Protein 6.6 gm/dl (6.0-8.3)
--- NOTE | 2025-06-27 11:10 | XRay Report ---
XR chest 1V portable CLINICAL HISTORY: Dyspnea COMPARISON STUDY: 10/22/2024 FINDINGS: Stable cardiomegaly with pulmonary vascular congestion. Stable stranding and patchy opacity in the lung bases. No pleural effusion or pneumothorax seen. IMPRESSION: 1. CHF. 2. Stable stranding and patchy opacities in the lung bases. ACT 112: Negative or not required by law. Electronically signed by: Romeo Gerard M.D. 06/27/2025 11:09 AM
[2025-06-27 11:19] LABS: INR 1.2 (0.9-1.1); Prothrombin Time 12.2 Seconds (9.0-12.0)
[2025-06-27 12:47] LABS: Chlamydia pneumoniae PCR Not Detected (NotDetected); Coronavirus 229E PCR Not Detected (NotDetected); Coronavirus CoV-2 (COVID19)PCR Not Detected (NotDetected); Coronavirus HKU1 PCR Not Detected (NotDetected); Coronavirus NL63 PCR Not Detected (NotDetected); Coronavirus OC43PCR Not Detected (NotDetected); Human Metapneumovirus PCR Not Detected (NotDetected); Parainfluenza Virus 1 PCR Not Detected (NotDetected); Parainfluenza Virus 2 PCR Not Detected (NotDetected); Parainfluenza Virus 3 PCR Not Detected (NotDetected); Parainfluenza Virus 4 PCR Not Detected (NotDetected); Respiratory Syncytial VirusPCR Not Detected (NotDetected); Rhinovirus/Enterovirus PCR Not Detected (NotDetected)
[2025-06-27] MEDS: MAGNESIUM SULFATE / D5W 1 GM/100 ML BAG IV STA (13:07)
--- NOTE | 2025-06-27 13:21 | CT Scan Report ---
CT chest diagnostic wo con CT DOSE: 856.26 mGy.cm CLINICAL HISTORY: 70 years-old Male with cough; shortness of breath. Acute cough with shortness of b reath TECHNIQUE: Multiaxial CT images of the chest were performed without contrast. A dose lowering techni que was utilized adhering to the principles of ALARA. COMPARISON: Chest CT studies dated 10/20/2024 and 05/10/2024 FINDINGS: Unremarkable thyroid. There are no pathologically enlarged axillary, mediastinal or hilar l ymph nodes identified. Moderate cardiomegaly with moderate to extensive coronary artery calcification s. There is a trace pericardial effusion. There is no pneumothorax or pleural effusion. There is minimal intralobular septal thickening of the lungs along with a degree of groundglass densities. Redemonstration of a 9 mm calcified endobronchial density at the takeoff of the left upper lobe bronchus on image 83 series 4. There is moderate left upper lobe airspace opacity with volume loss, unchanged. Visualized portions of the upper abdomen dem onstrate small to moderate ascites. Hepatomegaly with hepatic steatosis. No acute fracture or suspici ous bone lesion. No suspicious pulmonary nodules are present. Mild esophageal wall thickening redemon strated. IMPRESSION: 1. Stable appearance of the chest. 2. 9 mm calcified endobronchial lesion at the origin of the left upper lobe bronchus redemonstrated a long with atelectasis and partial collapse of the left upper lobe. These findings appear to be stable dating back to 05/10/2024. 3. Upper abdominal ascites again noted. ACT 112: Negative or not required by law. Electronically signed by: Jas Ruiz M.D. 06/27/2025 1:18 PM
--- NOTE | 2025-06-27 13:50 | History & Physical Report ---
Date of Service June 27, 2025 Assessment & Plan (1) Syncope and collapse: (2) Cough: (3) Hypomagnesemia: (4) Chronic respiratory failure with hypoxia and hypercapnia: Plan In summary this is a 70-year-old male who presents with complaints of progressive fatigue and chronic cough without acute worsening with a recent episode of possible syncope This is a witnessed event by family members; patient is unable to recall any prodromal nausea, diaphoresis, vision change, flushing sensation; they deny any associated incontinence; patient does have pertinent comorbidities including their cardiovascular disease, essential hypertension, type 2 diabetes mellitus; initial EKG unremarkable for acute change -Continuous panel monitor for first 24 hours then reassess -Follow daily renal function panel, magnesium -Consider ambulatory monitor at discharge if no evidence of arrhythmia on continuous cardiac monitoring during hospitalization - Obtain orthostatic vital signs during hospitalization The remainder the patient's chronic medical conditions are stable and do not require adjustment to their outpatient regimen at this time History of Present Illness Chief Complaint: Syncopal episode Primary Care Provider: Mckenna Fernando PA-C Mr. 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 The patient has had a progressive cough over the past 4 weeks has been nonproductive; they deny any progressive dyspnea on exertion, orthopnea, platypnea, hemoptysis, chest pain, pleuritic chest pain, lower extremity edema or abdominal distention. The patient is had no recent changes to the medication regimen however they are unsure what medications they take as this is primarily managed by their [id number]. The patient overall is unable to provide much medical history however cannot recall an episode of syncopal versus almost syncope several days before his current presentation that may have been associated with a coughing episode though the patient is not entirely sure. Allergies Allergy/AdvReac Type Severity Reaction Status Date / Time empagliflozin Allergy Intermediate Nausea, Verified 05/31/25 10:02 [From Jardiance] Dizziness nitroglycerin AdvReac Intermediate Unknown - Unverified 05/31/25 10:02 Was just told to not take it as precaution Home Medications Medication Instructions Recorded Confirmed Type aspirin 81 mg chewable tablet 81 mg PO DAILY 08/07/24 06/27/25 History (Children's Aspirin) cilostazol 100 mg tablet 0 mg PO BID 08/07/24 06/27/25 History clopidogrel 75 mg tablet 75 mg PO DAILY 08/07/24 06/27/25 History furosemide 40 mg tablet 0 mg PO BID 08/07/24 06/27/25 History glipizide 5 mg tablet 0 mg PO BID 08/07/24 06/27/25 History insulin glargine 100 unit/mL (3 60 unit subcut BID 08/07/24 06/27/25 History mL) subcutaneous pen (Lantus Solostar U-100 Insulin) lisinopril 30 mg tablet 30 mg PO DAILY 08/07/24 06/27/25 History metformin 1,000 mg tablet 1,000 mg PO BID 08/07/24 06/27/25 History metoprolol succinate 50 mg 50 mg PO DAILY 08/07/24 06/27/25 History tablet,extended release 24 hr nortriptyline 25 mg capsule 25 mg PO HS 08/07/24 06/27/25 History omeprazole 40 mg capsule,delayed 40 mg PO DAILY 08/07/24 06/27/25 History release rosuvastatin 10 mg tablet 0 mg PO DAILY 08/07/24 06/27/25 History tiotropium 2.5 mcg-olodaterol 2.5 0 puff inhalation DAILY 06/27/25 06/27/25 History mcg/actuation mist for inhalation (Stiolto Respimat) tirzepatide 2.5 mg/0.5 mL 2.5 mg subcut UD 06/27/25 06/27/25 History subcutaneous pen injector (Mounjaro) Past Med/Surg History Problem List (Updated 06/27/25 @ 16:36 by Fred Oneill DO) Syncope and collapse (Acute) Cough (Acute) Hypomagnesemia (Acute) Acute dyspnea (Acute) Chronic respiratory failure with hypoxia and hypercapnia COPD with emphysema Constipation Status post below knee amputation of right lower extremity Hypoxia (Acute) Elevated brain natriuretic peptide (BNP) level (Acute) Hypomagnesemia (Acute) Acute dyspnea (Acute) RLL pneumonia (Acute) Weight gain (Acute) CHF (congestive heart failure) (Acute) Acute kidney injury COPD exacerbation Acute on chronic respiratory failure with hypoxia Pulmonary edema (Acute) Chronic hypoxemic respiratory failure (Acute) (HFpEF) heart failure with preserved ejection fraction Pulmonary hypertension Ex-smoker Pulmonary nodule S/P below knee amputation Endotracheally intubated RVF (right ventricular failure) Acute and chronic respiratory failure Pressure ulcer of right foot, unstageable Ischemic foot CHF (congestive heart failure) COPD (chronic obstructive pulmonary disease) Acute hyperglycemia (Acute) Acute hyponatremia (Acute) Cellulitis of foot, right (Acute) PAD (peripheral artery disease) (Acute) Occlusion of right popliteal artery (Acute) CKD (chronic kidney disease) stage 2, GFR 60-89 ml/min DVT prophylaxis BETTE (obstructive sleep apnea) Type 2 diabetes mellitus Coronary artery disease (Acute) Hypertension Abnormal pulmonary finding Abnormal chest CT Acute respiratory failure with hypoxia Pneumonia Hypoxia (Acute) Mucus plugging of bronchi (Acute) Medical History Pneumonia involving right lung Chest pain Chronic respiratory failure Gangrene due to arterial insufficiency Septic shock Hyperlipidemia Family History Other Family history non-contributory Social History Smoking Status: Former smoker Tobacco Type: Cigarettes Cigarettes Per Day: na; Smoking End Date: greater than 10 years ago; Second Hand Exposure: Yes; Do You Dip or Chew Tobacco: No; Tobacco Cessation Education Requested by Patient: No Hx Alcohol Use: No Hx Substance Use: No Preferred Language: Lithuanian Communication Ability: Effective Conservation Biology Professor Required: No Beliefs That Will Affect Care: None Current Living Situation: Family Current Living Situation Comment: with son and daughter inlaw How many Children do You have: 5 Other Information That Helps Us Care for You: No Feels Safe at Home: Yes Safety Concerns: Feels Safe At This Time Assistive Devices: Wheelchair Review of Systems Review of Systems: Review of constitutional, cardiovascular, pulmonary, gastrointestinal, genitourinary systems was unremarkable except for pertinent positive and negative findings discussed above Physical Exam Physical Exam: General: Adult male in no acute distress Vital Signs: Reviewed HEENT: Moist mucous membranes; perioral cyanosis Pulmonary: Symmetric chest wall excursion without restriction; clear to auscultation bilaterally with slight diminished air movement in the bases bilaterally Cardiovascular: Regular rate and rhythm without murmurs, rubs, or gallops; S1 and S2 normal; no notable lower extremity edema Gastrointestinal: distended, soft; nontender throughout with normal bowel sounds Musculoskeletal: right BKA appears well Neurologic: CN II-XII grossly intact; no discernible focal weakness nor paresthesias Results & Data Results & Data Vital Signs (Past 12 Hours) Vital Signs Temp Pulse Pulse Resp BP BP Pulse Ox 06/27/25 12:19 87 06/27/25 12:17 78 18 125/89 95 06/27/25 10:24 77 24 92 06/27/25 10:19 36.4 C L 85 20 104/68 92 06/27/25 10:12 92 O2 Del Method O2 Flow Rate 06/27/25 12:19 06/27/25 12:17 Nasal Cannula 2 06/27/25 10:24 Nasal Cannula 2 06/27/25 10:19 Nasal Cannula 2 06/27/25 10:12 Nasal Cannula 2 Laboratory Results Magnesium 1.6 Troponin trend 42.3, 44.[address] B[address] chest without remarkable acute findings ECG Additional Comments: Unremarkable Code Status & VTE Plan Code Status DNR/DNI VTE Prophylaxis Plan VTE Prophylaxis will be ordered: Yes PG Care Time/CCT Total # of Minutes Spent Total Time Spent with Patient: Total time spent is greater than 50% in coordination of care (as documented) at patient's floor/unit and/or counseling patient: Coding Level of Care Code 37829 INT INP/OBS CARE 2/55MIN Diagnoses Syncope and collapse R55 Chronic cough R05.3 Cough type: chronic Hypomagnesemia E83.42 Chronic respiratory failure with hypoxia and hypercapnia J96.11; J96.12 (2) Cough Cough type: chronic Qualified Code(s): R05.3 - Chronic cough
[2025-06-27] MEDS: ENOXAPARIN INJ 40 MG/0.4 ML SYR SQ SCH (15:56)
[2025-06-27] MEDS ORDERED: CARBOHYDRATES FOR HYPOGLYCEMIA PO PRN (16:58)
[2025-06-27] MEDS ORDERED: GLUCOSE 40% GEL 15 GM TUBE PO PRN (16:58)
[2025-06-27] MEDS ORDERED: GLUCAGON FOR INJ 1 MG VIAL SQ PRN (16:58)
[2025-06-27] MEDS ORDERED: GLUCOSE 10 TAB/TUBE PO PRN (16:58)
[2025-06-27] MEDS: FUROSEMIDE 40 MG TAB PO SCH (17:47)
--- NOTE | 2025-06-27 18:48 | Electrocardiogram Report ---
Test Reason : Blood Pressure : */* mmHG Vent. Rate : 87 BPM Atrial Rate : 87 BPM P-R Int : 222 ms QRS Dur : 166 ms QT Int : 400 ms P-R-T Axes : 57 121 -9 degrees QTcB Int : 481 ms Sinus rhythm with 1st degree A-V block Right bundle branch block Possible Septal infarct Abnormal ECG When compared with ECG of 20-Oct-2024 14:27, Criteria for Lateral infarct are no longer Present Inverted T waves have replaced nonspecific T wave abnormality in Inferior leads Confirmed by Lavell Cheng ([id number]) on 06/27/2025 6:48:11 PM Referred By: REFERRED SELF Confirmed By: Lavell Cheng
[2025-06-27] MEDS: LANTUS PER UNIT CHARGE SC SCH (20:04)
[2025-06-27] MEDS: INSULIN ASPART PER UNIT CHARGE SC SCH (20:04)
[2025-06-27] MEDS: NORTRIPTYLINE HCL 25 MG CAP PO SCH (20:06)
[2025-06-27] MEDS: FAMOTIDINE 20 MG TAB PO PRN (20:52)
[2025-06-27] MEDS ORDERED: FUROSEMIDE 40 MG TAB PO SCH (21:00)
[2025-06-28 06:20] LABS: Hematocrit (blood only) 36.5 % (42.0-52.0); Hemoglobin 11.1 g/dL (14.0-18.0); Mean Corpuscular Hemoglobin 24.7 pg (25.0-34.0); Mean Corpuscular Volume 81.3 fL (80.0-100.0); Platelet Count 265 K/uL (130-400); RDW Standard Deviation 50.0 fL (36.4-46.3); Red Blood Count 4.49 M/uL (4.70-6.10); White Blood Count 10.33 K/ul (4.8-10.8)
[2025-06-28 06:44] LABS: Albumin Level 4.2 gm/dl (3.4-5.0); Anion Gap 8.0 (3-11); Blood Urea Nitrogen 41.0 mg/dl (6-23); Calcium 9.8 mg/dl (8.6-10.3); Carbon Dioxide 31.0 mmol/L (21-32); Chloride 99.0 mmol/L (98-107); Creatinine Clr Calc Pharmacy 54.0 ml/min; Glucose 150.0 mg/dl (70-99(Fasting)); Magnesium 1.7 mg/dl (1.7-2.4); Potassium 4.6 mmol/L (3.5-5.1); Sodium 138.0 mmol/L (136-145)
[2025-06-28] MEDS: CLOPIDOGREL BISULFATE 75 MG TAB PO SCH (08:55)
[2025-06-28] MEDS: METOPROLOL SUCC 50MG EXT REL TAB PO SCH (08:55)
[2025-06-28] MEDS: ASPIRIN 81 MG CHEW PO SCH (08:55)
[2025-06-28] MEDS: ROSUVASTATIN CALCIUM 20 MG TAB PO SCH (08:55)
[2025-06-28] MEDS: UMECLIDINIUM/VILANTEROL 62.5/25MCG 7 PUFFS/INHALER INH SCH (08:55)
--- NOTE | 2025-06-28 11:35 | Ultrasound Report ---
LEFT LOWER EXTREMITY VENOUS DOPPLER HISTORY: concern for dvt COMPARISON STUDY: 12/08/2023 FINDINGS: No evidence of DVT seen at the left lower extremity. IMPRESSION: No DVT seen. . ACT 112: Negative or not required by law. Electronically signed by: Romeo Gerard M.D. 06/28/2025 11:34 AM
--- NOTE | 2025-06-28 14:13 | Hospitalist Progress Note ---
Date of Service June 28, 2025 Assessment & Plan (1) Syncope and collapse: (2) Cough: (3) Hypomagnesemia: (4) Chronic respiratory failure with hypoxia and hypercapnia: Plan Patient is a 70 y/o M PMHx HFpEF, pulmonary hypertension(WHO group 2 and 3), chronic respiratory failure with hypoxia and hypercapnia requiring supplemental O2 at home, T2DM with multiple complications, class II obesity, and BKA admitted for evaluation of witnessed syncopal episode at home w/o known cause. #syncope - witnessed by family at home ; unable to recall any prodromal nausea, diaphoresis, vision change, flushing sensation; they deny any associated incontinence; patient does have pertinent comorbidities including their cardiovascular disease, essential hypertension, type 2 diabetes mellitus; initial EKG unremarkable for acute change. CXR with stable cardiomegaly w/ pulmonary vascular congestion and stable stranding and patchy opacities in the lung bases. 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 This morning, sinus tachycardia HR 100s, with 1st degree AV block - CBC w/o leukocytosis. H&H 11.1 & 36.5. BMP with electrolytes wnl. Cr 1.57 - doppler LUE w/o evidence of DVT - unclear etiology of syncopal episode at this time and patient poor historian - ideally, would like to continue cardiac monitoring for another day - if considering home discharge early, will consider ambulatory monitor at discharge if no evidence of arrhythmia on continuous cardiac monitoring during hospitalization - Obtain orthostatic vital signs during hospitalization - repeat BMP, Mg qAM #HFpEF/pulmonary hypertension - last echo 10/23/24 - normal LVF, grade I diastolic dysfunction with flattened septum, severe dilation of RV with reduced RV function RV systolic pressure 30- 40mmHg, mildly dilated LA, moderately dilated RA, aortic valve stenosis, mod to severe TR, - continue home furosemide, metoprolol #CAD/PAD - s/p right BKA - continue clopidogrel 75mg po daily, rosuvastatin 10mg po daily and cilostazol 100 mg po bid #HTN - continue metoprolol succinate 50mg po daily #T2DM - SSI ordered - last A1c 6.7% DVT: lovenox 40mg sq q24 Dispo: med/tele The remainder the patient's chronic medical conditions are stable and do not require adjustment to their outpatient regimen at this time Admission and Anticipated Discharge Date Admission Date: June 27, 2025 Supervising Physician Co-Signing Physician Notes Patient seen and examined, chart reviewed, case discussed with Dr. Puentes and I agree with the assessment and plan as above except as otherwise noted above. General: A&Ox3. NAD. Cooperative. TP linear, answers questions appropriately at bedside. HEENT: Atraumatic, normocephalic. Vision and hearing grossly intact. Pulm: CTAB A&P. -wheezes, -rales, -rhonchi. Symmetrical chest rise. No increase work of breathing. No respiratory distress. Cardiac: mild tachycardia S/p R BKA. +L leg ichthyosis and mild swelling. Enchanged mild erythema. All labs and images reviewed D/w nursing. Had a hypoxic event this AM with slow recovery, reportedly had removed his O2. Has chronic O2 requirement. O2 normalized once back on nasal cannula. Continue O2 goal 90%, NIV HS. No recurrent syncope. Doppler of LE negative. Suspect chronic inflammatory change, he does not appear toxic. Monitor for cellulitis, however lower suspicion for this at bedside exam. No syncopal events, follow telemetry. If doing well --> possible dc tomorrow Subjective Patient seen and examined at bedside. Alert, awake, no acute distress. States feeling well this morning, however does appear slightly uncomfortable in bed. Denies shortness of breath or chest pain. Physical Exam Physical Exam: General: uncomfortable appearing but non-toxic appearing male; alert, awake. conversing appropriately ; on 3L NC Vital Signs: Reviewed HEENT: lips do appear cracked and dry Pulmonary: Symmetric chest wall excursion without restriction; diminished air movement in the bases of the lungs bilaterally, otherwise CTA BL w/o wheezes, rales or rhonchi Cardiovascular: tachycardiac, regular rhythm. no murmur appreciated. Gastrointestinal: soft, nontender with mild distension ; bowel sounds normoactive MSK: erythematous LLE with chronic venous stasis changes ; right BKA well appearing Neuro: no focal neurologic deficits Psych: A&Ox4 Results & Data Results & Data Vital Signs (Past 12 Hours) Vital Signs Temp Pulse Pulse Resp BP Pulse Ox O2 Del Method 06/28/25 08:55 Nasal Cannula 06/28/25 08:39 36.4 C L 100 H 24 169/91 H 93 Nasal Cannula 06/28/25 06:45 100 H 06/28/25 03:02 97 H 18 92 06/28/25 02:08 93 H 18 131/89 91 Room Air, BiPAP O2 Flow Rate 06/28/25 08:55 3 06/28/25 08:39 3 06/28/25 06:45 06/28/25 03:02 2 06/28/25 02:08 (2) Cough Cough type: chronic Qualified Code(s): R05.3 - Chronic cough
--- NOTE | 2025-06-28 22:08 | Electrocardiogram Report ---
Test Reason : Blood Pressure : */* mmHG Vent. Rate : 92 BPM Atrial Rate : 92 BPM P-R Int : 222 ms QRS Dur : 162 ms QT Int : 408 ms P-R-T Axes : 59 120 -5 degrees QTcB Int : 504 ms Sinus rhythm with 1st degree A-V block Right bundle branch block Possible Septal infarct Abnormal ECG When compared with ECG of 27-Jun-2025 10:30, No significant change was found Confirmed by Lavell Cheng ([id number]) on 06/28/2025 10:07:44 PM Referred By: REFERRED SELF Confirmed By: Lavell Cheng
[2025-06-29 05:58] LABS: Anion Gap 7.0 (3-11); Blood Urea Nitrogen 43.0 mg/dl (6-23); Calcium 9.3 mg/dl (8.6-10.3); Carbon Dioxide 31.0 mmol/L (21-32); Chloride 101.0 mmol/L (98-107); Creatinine Clr Calc Pharmacy 44.2 ml/min; Glucose 92.0 mg/dl (70-99(Fasting)); Magnesium 1.8 mg/dl (1.7-2.4); Potassium 4.4 mmol/L (3.5-5.1); Sodium 139.0 mmol/L (136-145)
--- NOTE | 2025-06-29 08:54 | Hospitalist Progress Note ---
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 #syncope - witnessed by family at home ; unable to recall any prodromal nausea, diaphoresis, vision change, flushing sensation; they deny any associated incontinence; patient does have pertinent comorbidities including their cardiovascular disease, essential hypertension, type 2 diabetes mellitus; initial EKG unremarkable for acute change. CXR with stable cardiomegaly w/ pulmonary vascular congestion and stable stranding and patchy opacities in the lung bases. CT chest with stable changes, 9mm calcified endobronchial lesion at the origin in left upper lobe w/ atelectasis and partial collapse of left upper lobe, these are stable findings - EKG: first degree AV block, RBBB, possible septal infarct not significantly changed from prior EKG - doppler LUE w/o evidence of DVT - unclear etiology of syncopal episode at this time and patient poor historian - Orthostatics positive (limited due to BKA). Lying 118/71 and sitting 90/69. - BMP qAM - PT/OT eval #Angina, secondary to ACS vs atypical angina? - episode of angina yesterday, described as central chest pressure associated with diaphoresis and dyspnea - troponin I: 27.4 (downtrending) - switch lovenox to low dose heparin without bolus - cardiology consult in AM - nitroglycerin prn for discomfort - 250cc NS at 150mls/hr due to soft BPs - troponin trend overnight #MADDI Cr 1.57-->1.92 -hold lasix -encourage PO intake -follow AM BMP #HFpEF/pulmonary hypertension - last echo 10/23/24 - normal LVF, grade I diastolic dysfunction with flattened septum, severe dilation of RV with reduced RV function RV systolic pressure 30- 40mmHg, mildly dilated LA, moderately dilated RA, aortic valve stenosis, mod to severe TR - continue metoprolol - hold lasix as above #CAD/PAD - s/p right BKA - continue clopidogrel 75mg po daily, rosuvastatin 10mg po daily and cilostazol 100 mg po bid #HTN - continue metoprolol succinate 50mg po daily #T2DM - SSI ordered - last A1c 6.7% Hypomagnesemia resolved DVT: heparin Dispo: med/tele Diet: heart healthy, carb consistent Admission and Anticipated Discharge Date Admission Date: June 27, 2025 Supervising Physician Co-Signing Physician Notes Patient seen and examined, chart reviewed, case discussed with Dr. Vanessa and I agree with the assessment and plan as above except as otherwise noted Labs and images reviewed Seen today. Right sided lung is clear, some crackles in the left lower lung. Lower extremity edema is improved. Creatinine elevated, diuretics held. Becht moved and slightly dry today. At bedside he does report that yesterday afternoon he had an episode of chest discomfort which he had not told anyone. Reports that he felt a heaviness on his chest and was associated with shortness of breath and some sweating. He reports he does not recall having an event again overnight, but per signout did have a second event at rest with chest pressure, diaphoresis, and dyspnea. Due to onset of pain with an anginal character at rest was heparinized and cardiology was consulted. In the afternoon was notified by nursing that while eating dinner he did have an aspiration event, and transient hypoxemia. He did have some chest discomfort with this. At time of reassessment oxygenation improving 90-94%. Did have some mild chest discomfort, EKG at the bedside was without acute change. Was initially ordered some Nitropaste however on reassessment chest pain improved and nearly resolved and oxygenation is improving. Deferred for blood pressure and improvement in symptoms. Troponin trended overnight. Clinically is now slightly volume contracted and with MADDI, small amount of fluid given back and will continue to reassess. Diuretics remain held. Past cath was reviewed he had distal nonocclusive coronary disease at that time. Given his history of vascular disease/BKA and underlying comorbidities suspect he does have underlying coronary disease which may have progressed. He denied exertional chest pressure/chest pain preceding this admission, notes he has had intermittent chest pressure but that seems to be when he gets upset or mad and denies associated of this with exertion/transfers. He does endorse chronic shortness of breath which he thinks has been more or less unchanged and has not ever really gotten better in a long time, however the shortness of breath with sweating associate with the chest heaviness while he was in the hospital seems different from episodes in the past. Cardiology consulted for further ischemic evaluation, optimize volume and renal status as best possible although he has a very narrow euvolemic range. Agree with above Subjective Overnight: had short lived episode of chest discomfort. ECG completed showed no significant changes compared to admission ECG. He described the chest discomfort as a pressure like sensation over central chest associated with SOB and sweating. Today at bedside, he states he feels better. Denies fever, chills, SOB, CP, palpitations, abdominal pain, or complaints. This afternoon, was alerted by nurse that he choked on his food and was coughing. Went to examine pt at bedside and he stated he was having a chest pressure sensation and felt warm. Pt stable at bedside and ECG unchanged. Review of Systems Review of Systems: per HPI Physical Exam Physical Exam: GA: well groomed, well nourished in no apparent distress. AAOx3 HEENT: head normocephalic, atraumatic. EOMI RESP: on 3L NC. vesicular breath sounds b/l. No wheezes, rhonchi, or rales CARDIOVASCULAR: S1 and S2 heard. No murmurs, rubs, or gallops. Radial pulses 2+ b/l RRR GI: no tenderness or masses felt to palpation MSK: no gross abnormalities or focal deficits. Right sided BKA SKIN: warm, dry, no edema PSYCH: appropriate mood and affect NEURO: no focal deficits. speech fluent Results & Data Results & Data Vital Signs (Past 12 Hours) Vital Signs Temp Pulse Pulse Resp BP Pulse Ox O2 Del Method 06/29/25 07:47 36.4 C L 96 H 16 119/79 95 Nasal Cannula 06/29/25 06:45 96 H 06/29/25 03:46 36.6 C 87 18 113/72 94 Nasal Cannula 06/28/25 22:50 87 16 96 06/28/25 22:17 36.5 C 86 18 107/68 94 Nasal Cannula 06/28/25 22:14 87 06/28/25 21:23 Nasal Cannula O2 Flow Rate 06/29/25 07:47 06/29/25 06:45 06/29/25 03:46 3 06/28/25 22:50 4 06/28/25 22:17 4 06/28/25 22:14 06/28/25 21:23 4 Diagnostic Findings 2019 Cath Results * Non-occlusive coronary artery disease (dRCA: 50%), unchanged from prior coronary angiogram in 2018. * Resting hemodynamics notable for moderately elevated right (mRAP 11mmHg) heart filling pressures and normal left (PCWP 14mmHg) heart filling pressures. Moderately elevated mean pulmonary arterial pressure (mPAP 37mmHg) with severely elevated pulmonary vascular resistance (PVR 5.8 CROFT). Cardiac index by Patricia equation using assumed VO2 was depressed (CI 1.8 L/min/m2). * Pulmonary vasodilator testing with inhaled nitric oxide up-titrated to 20ppm was performed. Mean pulmonary arterial pressure remained moderately elevated (mPAP 35 mmHg) with severely elevated pulmonary vascular resistance (PVR 5.4 CROFT), left heart filling pressure became mildly elevated (PCWP 16 mmHg), and cardiac index remained depressed (CI 1.6 L/min/m2) - indicative of a negative response to nitric oxide. * No evidence of intra-cardiac shunt on oximetry run.* Uncomplicated right antecubital venous (5 Fr) and right radial arterial (6 Fr) access. Resident Activity Tracking Resident Involvement: Resident Care Provided Care Provided: Adult Hospital Medicine (2) Cough Cough type: chronic Qualified Code(s): R05.3 - Chronic cough
[2025-06-29] MEDS: HEPARIN 25000 UNIT/500 ML D5W 25,000 UNITS/500 ML BAG IV SCH (11:35)
[2025-06-29] MEDS: Heparin IV Adult Wt-Based Low-Dose *NO* INITIAL Bolus Protocol IV SCH (11:35)
[2025-06-29 12:25] LABS: Hematocrit (blood only) 33.8 % (42.0-52.0); Hemoglobin 10.0 g/dL (14.0-18.0); Immature Granulocytes # (auto) 0.02 K/uL (0.01-0.20); Immature Granulocytes % (auto) 0.2 %; Mean Corpuscular Hemoglobin 24.4 pg (25.0-34.0); Mean Corpuscular Volume 82.4 fL (80.0-100.0); Platelet Count 216 K/uL (130-400); RDW Standard Deviation 51.3 fL (36.4-46.3); Red Blood Count 4.10 M/uL (4.70-6.10); White Blood Count 8.60 K/ul (4.8-10.8)
[2025-06-29 12:55] LABS: INR 1.2 (0.9-1.1); Partial Thromboplastin Time 31 Seconds (21-31); Prothrombin Time 12.1 Seconds (9.0-12.0)
[2025-06-29 18:14] LABS: ANTI-Xa, UFH(UnfractionatedHep 0.19 IU/ml (0.3-0.7)
[2025-06-29] MEDS: NITROGLYCERIN 2% OINTMENT 30GM TUBE EXT SCH (18:15)
[2025-06-29] MEDS: SODIUM CHLORIDE 0.9% 500 ML IV SCH (18:15)
[2025-06-29] MEDS: HEPARIN SOD (PORCINE) 1000 UNIT/ML IV ONE (19:26)
[2025-06-30 01:29] LABS: ANTI-Xa, UFH(UnfractionatedHep 0.28 IU/ml (0.3-0.7)
--- NOTE | 2025-06-30 07:21 | Hospitalist Progress Note ---
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 #syncope - witnessed by family at home ; unable to recall any prodromal nausea, diaphoresis, vision change, flushing sensation; they deny any associated incontinence; patient does have pertinent comorbidities including their cardiovascular disease, essential hypertension, type 2 diabetes mellitus; initial EKG unremarkable for acute change. CXR with stable cardiomegaly w/ pulmonary vascular congestion and stable stranding and patchy opacities in the lung bases. CT chest with stable changes, 9mm calcified endobronchial lesion at the origin in left upper lobe w/ atelectasis and partial collapse of left upper lobe, these are stable findings - EKG: first degree AV block, RBBB, possible septal infarct not significantly changed from prior EKG - doppler LUE w/o evidence of DVT - unclear etiology of syncopal episode at this time and patient poor historian - Orthostatics positive (limited due to BKA). Lying 118/71 and sitting 90/69. Recommend taking movements slowly. - BMP qAM - PT/OT eval #Angina, secondary to ACS vs atypical angina?a - troponin I: 27->22 - continue low dose heparin without bolus - cardiology consult - nitroglycerin prn for discomfort #MADDI Cr 1.57-->1.92-->1.75 -hold lasix -encourage PO intake -follow AM BMP #HFpEF/pulmonary hypertension - last echo 10/23/24 - normal LVF, grade I diastolic dysfunction with flattened septum, severe dilation of RV with reduced RV function RV systolic pressure 30- 40mmHg, mildly dilated LA, moderately dilated RA, aortic valve stenosis, mod to severe TR - continue metoprolol - hold lasix as above #CAD/PAD - s/p right BKA - continue clopidogrel 75mg po daily, rosuvastatin 10mg po daily and cilostazol 100 mg po bid #HTN - continue metoprolol succinate 50mg po daily #T2DM - SSI ordered - last A1c 6.7% Hypomagnesemia resolved DVT: heparin Dispo: med/tele Diet: heart healthy, carb consistent Admission and Anticipated Discharge Date Admission Date: June 27, 2025 Supervising Physician Co-Signing Physician Notes Patient seen and examined, chart reviewed, case discussed with Dr. Vanessa and I agree with the assessment and plan as above except as otherwise noted Labs and images reviewed Seen at the bedside this morning. Some intermittent agitation overnight per nursing report. Patient reports he has no chest pain currently, but does endorse that he had some pressure sensation earlier in the morning which passed. Was encouraged to use NIV last night however did get significantly agitated and subsequently refused this. Troponin series downtrended, peaked at 44. Blood pressure significantly improved after giving a very small amount of fluid back y evening. He is pending further ischemic evaluation with cardiology. Subjective No overnight events. Pt seen and examined this morning at bedside. He said earlier this morning he had an episode of chest pain described as a pressure like sensation that lasted an hour but then went away on its own. He noted his breathing is slightly improved but he struggled with the CPAP machine last night due to the mask coming apart. Denies fever, chills, CP, palpitations, abdominal pain presently. Review of Systems Review of Systems: per HPI Physical Exam Physical Exam: GA: well groomed, well nourished in no apparent distress. AAOx3 HEENT: head normocephalic, atraumatic. EOMI RESP: on NC. vesicular breath sounds b/l. No wheezes, rhonchi, or rales CARDIOVASCULAR: S1 and S2 heard. No murmurs, rubs, or gallops. Radial pulses 2+ b/l RRR GI: no tenderness or masses felt to palpation MSK: no gross abnormalities or focal deficits. Right sided BKA SKIN: warm, dry, no edema PSYCH: appropriate mood and affect NEURO: no focal deficits. speech fluent Results & Data Results & Data Vital Signs (Past 12 Hours) Vital Signs Temp Pulse Pulse Resp BP BP Pulse Ox 06/30/25 06:45 85 06/30/25 04:00 36.5 C 87 20 105/74 94 06/29/25 23:15 36.5 C 82 18 105/61 93 06/29/25 22:24 81 06/29/25 22:07 06/29/25 21:00 84 22 93 06/29/25 19:45 36.5 C 87 18 101/67 94 O2 Del Method O2 Flow Rate 06/30/25 06:45 06/30/25 04:00 Nasal Cannula 4 06/29/25 23:15 CPAP 06/29/25 22:24 06/29/25 22:07 Nasal Cannula 4 06/29/25 21:00 4 06/29/25 19:45 Nasal Cannula 4 Resident Activity Tracking Resident Involvement: Resident Care Provided Care Provided: Adult Hospital Medicine (2) Cough Cough type: chronic Qualified Code(s): R05.3 - Chronic cough
[2025-06-30 07:28] LABS: Anion Gap 6.0 (3-11); Blood Urea Nitrogen 42.0 mg/dl (6-23); Calcium 9.1 mg/dl (8.6-10.3); Carbon Dioxide 33.0 mmol/L (21-32); Chloride 102.0 mmol/L (98-107); Creatinine Clr Calc Pharmacy 47.3 ml/min; Potassium 4.4 mmol/L (3.5-5.1); Sodium 141.0 mmol/L (136-145)
[2025-06-30 08:22] LABS: ANTI-Xa, UFH(UnfractionatedHep 0.24 IU/ml (0.3-0.7)
[2025-06-30] MEDS ORDERED: NITROGLYCERIN 2% OINTMENT 30GM TUBE EXT PRN (10:13)
--- NOTE | 2025-06-30 10:42 | Cardiology Consultation ---
Date of Consultation June 30, 2025 Assessment & Plan (1) Syncope and collapse: (2) Chronic respiratory failure with hypoxia and hypercapnia: (3) Right-sided congestive heart failure: (4) Mild CAD: (5) Basilar artery occlusion: Plan Will monitor with meds for now. Will arrange for OP EVENT monitor and then follow up as OP--DAPT, BB statin History of Present Illness Attending Physician: Omari Rivera MD History of Present Illness Oliverio Monte is a 70 year old male with PMH significant for diastolic and right sided HF with preserved LV EF 60-65%, nonocclusive CAD s/p right heart cath on 04/30/2020 (PA diastolic 32, single vessel 50% lesion in RCA) which was unchanged from prior cath 2018, HTN, HLD, DM and BETTE . BiPAP He has been on O2 3L and recently up to 5L continuously. Last year struggled with significant right sided CHF related to respiratory failure-requiring diuresis for significant fluid overload and chf-resulting in MADDI. I last saw him in December 2024 and overall was doing well. Last cardiac eval was ECHO in Jun 2024 as well as an EVENT monitor Jun 2024 also done for dizziness/lightheadedness. In review of his prior history: He was in the hospital back in December 2023 with sepsis related to an infected right leg-he underwent BKA with Dr. Greenberg. Then in April 2024 he was observed to have a ?seizure-was transferred from [facility] to [facility] and seen by neurology. 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 Now with similar episodes. Yesterday while eating dinner he did have an aspiration event, and transient hypoxemia. He did have some chest discomfort with this. At time of reassessment oxygenation improving 90-94%. Did have some mild chest discomfort, EKG at the bedside was without acute change. Was initially ordered some Nitropaste however on reassessment chest pain improved and nearly resolved and oxygenation is improving. Deferred for blood pressure and improvement in symptoms. Troponin trended overnight. He has not had further symptoms today. Initially , I was opposed to doing stress testing given they extent of his vascular disease. I reviewed with him cath vs medical therapy, he is not sure what he wants to do. Given he only had single vessel disease in 2019-would observe for now. Allergies Allergy/AdvReac Type Severity Reaction Status Date / Time empagliflozin Allergy Intermediate Nausea, Verified 05/31/25 10:02 [From Jardiance] Dizziness nitroglycerin AdvReac Intermediate Unknown - Unverified 05/31/25 10:02 Was just told to not take it as precaution Home Medications Medication Instructions Recorded Confirmed Type aspirin 81 mg chewable tablet 81 mg PO DAILY 08/07/24 06/27/25 History (Children's Aspirin) cilostazol 100 mg tablet 0 mg PO BID 08/07/24 06/27/25 History clopidogrel 75 mg tablet 75 mg PO DAILY 08/07/24 06/27/25 History furosemide 40 mg tablet 0 mg PO BID 08/07/24 06/27/25 History glipizide 5 mg tablet 0 mg PO BID 08/07/24 06/27/25 History insulin glargine 100 unit/mL (3 60 unit subcut BID 08/07/24 06/27/25 History mL) subcutaneous pen (Lantus Solostar U-100 Insulin) lisinopril 30 mg tablet 30 mg PO DAILY 08/07/24 06/27/25 History metformin 1,000 mg tablet 1,000 mg PO BID 08/07/24 06/27/25 History metoprolol succinate 50 mg 50 mg PO DAILY 08/07/24 06/27/25 History tablet,extended release 24 hr nortriptyline 25 mg capsule 25 mg PO HS 08/07/24 06/27/25 History omeprazole 40 mg capsule,delayed 40 mg PO DAILY 08/07/24 06/27/25 History release rosuvastatin 10 mg tablet 0 mg PO DAILY 08/07/24 06/27/25 History tiotropium 2.5 mcg-olodaterol 2.5 0 puff inhalation DAILY 06/27/25 06/27/25 History mcg/actuation mist for inhalation (Stiolto Respimat) tirzepatide 2.5 mg/0.5 mL 2.5 mg subcut UD 06/27/25 06/27/25 History subcutaneous pen injector (Emma) Patient History Medical History Pneumonia involving right lung Chest pain Chronic respiratory failure Gangrene due to arterial insufficiency Septic shock Hyperlipidemia Family History Other Family history non-contributory Social History Smoking Status: Former smoker Tobacco Type: Cigarettes Cigarettes Per Day: na; Smoking End Date: greater than 10 years ago; Second Hand Exposure: Yes; Do You Dip or Chew Tobacco: No; Tobacco Cessation Education Requested by Patient: No Hx Alcohol Use: No Hx Substance Use: No Preferred Language: Albanian Communication Ability: Effective Music Manager Required: No Beliefs That Will Affect Care: None Current Living Situation: Family Current Living Situation Comment: with son and daughter inlaw How many Children do You have: 5 Other Information That Helps Us Care for You: No Feels Safe at Home: Yes Safety Concerns: Feels Safe At This Time Assistive Devices: Oxygen - Continuous Review of Systems Review of Systems: All systems reviewed & are unremarkable except as noted in HPI & below Physical Exam Physical Exam: AAO x 3 resting comfortably speech difficult to understand Cardiovascular: heart regular, no new murmurs b/l amputations Results & Data Vital Signs (Past 12 Hours) Vital Signs Temp Pulse Pulse Resp BP Pulse Ox O2 Del Method 06/30/25 09:00 Nasal Cannula 06/30/25 07:43 36.3 C L 87 20 123/82 92 Nasal Cannula 06/30/25 06:45 85 06/30/25 04:00 36.5 C 87 20 105/74 94 Nasal Cannula 06/29/25 23:15 36.5 C 82 18 105/61 93 CPAP O2 Flow Rate 06/30/25 09:00 4 06/30/25 07:43 4 06/30/25 06:45 06/30/25 04:00 4 06/29/25 23:15 Laboratory Results Abnormal lab results 06/30/25 06/30/25 06/30/25 Range/Units 00:23 06:33 07:35 Heparin Anti-Xa, Unfract 0.28 L 0.24 L (0.3-0.7) IU/ml Carbon Dioxide 33 H (21-32) mmol/L BUN 42 H (6-23) mg/dl Creatinine 1.75 H (0.6-1.4) mg/dl POC Glucose (70-99) mg/dl Fasting Glucose 63 L (70-99) mg/dl Troponin I High Sens 27.0 H 22.6 H (0-20) pg/ml 06/30/25 06/30/25 06/30/25 Range/Units 12:13 15:45 16:58 Heparin Anti-Xa, Unfract 0.28 L (0.3-0.7) IU/ml Carbon Dioxide (21-32) mmol/L BUN (6-23) mg/dl Creatinine (0.6-1.4) mg/dl POC Glucose 122 H 126 H (70-99) mg/dl Fasting Glucose (70-99) mg/dl Troponin I High Sens (0-20) pg/ml Diagnostic Findings ECHO Jun 2024: 1. Normal left ventricular size and systolic function. 2. Estimated ejection fraction 55-60%. 3. No regional wall motion abnormalities. 4. Moderate left ventricular hypertrophy. 5. Right ventricular dilation with reduced systolic function. 6. Mildly dilated aortic root. 7. Sclerotic trileaflet aortic valve without significant stenosis or regurgitation. 8. Moderately elevated pulmonary artery pressures. 9. Compared to 03/19/20 study, RV function is reduced ECG Additional Comments: NSR RBBB RAD
--- NOTE | 2025-06-30 12:19 | Electrocardiogram Report ---
Test Reason : Blood Pressure : */* mmHG Vent. Rate : 82 BPM Atrial Rate : 82 BPM P-R Int : 230 ms QRS Dur : 164 ms QT Int : 418 ms P-R-T Axes : 65 105 -17 degrees QTcB Int : 488 ms Sinus rhythm with 1st degree A-V block Right bundle branch block Possible Lateral infarct , age undetermined Abnormal ECG When compared with ECG of 28-Jun-2025 15:08, No significant change was found Confirmed by Shaniqua Bravo ([id number]) on 06/30/2025 12:19:00 PM Referred By: REFERRED SELF Confirmed By: Shaniqua Bravo
[2025-06-30 17:00] LABS: ANTI-Xa, UFH(UnfractionatedHep 0.28 IU/ml (0.3-0.7)
--- NOTE | 2025-06-30 21:20 | XRay Report ---
COMPARISON: 06/27/2025 FINDINGS: HEART: The heart remains enlarged. LUNGS: Mild pulmonary vascular congestion. Improved bibasilar infiltrates. MEEDIASTINUM: Unremarkable. BONES: Intact. OTHER: Unremarkable. IMPRESSION: There is some improvement of the CHF changes and bibasilar infiltrates Electronically signed by Willam Garza 06-30-2025 9:20 PM
[2025-06-30] MEDS ORDERED: Nursing to Pharmacy Communication SCH (22:00)
[2025-07-01 00:02] LABS: ANTI-Xa, UFH(UnfractionatedHep 0.32 IU/ml (0.3-0.7)
[2025-07-01] MEDS: INSULIN ASPART PER UNIT CHARGE SC SCH ×2 (00:43→18:16)
[2025-07-01 06:04] LABS: Hematocrit (blood only) 35.8 % (42.0-52.0); Hemoglobin 10.5 g/dL (14.0-18.0); Immature Granulocytes # (auto) 0.03 K/uL (0.01-0.20); Immature Granulocytes % (auto) 0.3 %; Mean Corpuscular Hemoglobin 24.4 pg (25.0-34.0); Mean Corpuscular Volume 83.1 fL (80.0-100.0); Platelet Count 238 K/uL (130-400); RDW Standard Deviation 52.8 fL (36.4-46.3); Red Blood Count 4.31 M/uL (4.70-6.10); White Blood Count 10.01 K/ul (4.8-10.8)
[2025-07-01 06:23] LABS: Anion Gap 8.0 (3-11); Blood Urea Nitrogen 44.0 mg/dl (6-23); Calcium 9.1 mg/dl (8.6-10.3); Carbon Dioxide 31.0 mmol/L (21-32); Chloride 102.0 mmol/L (98-107); Creatinine Clr Calc Pharmacy 39.8 ml/min; Potassium 4.3 mmol/L (3.5-5.1); Sodium 141.0 mmol/L (136-145)
[2025-07-01 06:24] LABS: ANTI-Xa, UFH(UnfractionatedHep 0.30 IU/ml (0.3-0.7)
--- NOTE | 2025-07-01 07:02 | Hospitalist Progress Note ---
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 #Syncope - witnessed by family at home ; unable to recall any prodromal nausea, diaphoresis, vision change, flushing sensation; they deny any associated incontinence; patient does have pertinent comorbidities including their cardiovascular disease, essential hypertension, type 2 diabetes mellitus; initial EKG unremarkable for acute change. CXR with stable cardiomegaly w/ pulmonary vascular congestion and stable stranding and patchy opacities in the lung bases. CT chest with stable changes, 9mm calcified endobronchial lesion at the origin in left upper lobe w/ atelectasis and partial collapse of left upper lobe, these are stable findings - EKG: first degree AV block, RBBB, possible septal infarct not significantly changed from prior EKG - doppler LUE w/o evidence of DVT - unclear etiology of syncopal episode at this time and patient poor historian - Orthostatics positive (limited due to BKA). Lying 118/71 and sitting 90/69 - recommend taking movements slowly. - PT/OT eval pending - curiously, has been hypoglycemic here, question if this may be contributing to his syncope at home, which per pt is actually a recurrent issue #Angina, secondary to ACS vs atypical angina?a - troponin I: 27->22, and this slight bump may be due to impaired renal clearance from MADDI - continue low dose heparin without bolus - nitroglycerin prn for discomfort - cardiology consulted #MADDI Cr 1.57-->1.92-->1.75 -> 2.08 -hold lasix, hold NSAIDs, will hold his ACEi also -encourage PO intake -follow AM BMP #Possible aspiration event - noted with dinner over the weekend - NPO pending speech eval #HFpEF/pulmonary hypertension - last echo 10/23/24 - normal LVF, grade I diastolic dysfunction with flattened septum, severe dilation of RV with reduced RV function RV systolic pressure 30- 40mmHg, mildly dilated LA, moderately dilated RA, aortic valve stenosis, mod to severe TR - continue metoprolol - hold lasix as above - does not appear to be in overt exac today #COPD//chronic respiratory failure with hypoxia - oxygen as needed #T2DM - SSI ordered - last A1c 6.7% - low blood sugar levels this morning so decreased his long acting and loosened his short acting regimes #CAD/PAD - s/p right BKA - continue clopidogrel 75mg po daily, rosuvastatin 10mg po daily and cilostazol 100 mg po bid #HTN - continue metoprolol succinate 50mg po daily DVT: heparin Admission and Anticipated Discharge Date Admission Date: June 30, 2025 Supervising Physician Co-Signing Physician Notes Resident Physician Supervision Note: I personally examined the patient and verified all perez points of history and exam, discussed case, and agree with decision making with Dr. Levy I discussed the case with the resident and agree with the findings and plan as documented in the note. Any exceptions or clarifications are listed here: None Patient was cleared by cardiology with no further inpatient testing required. Patient's episode does raise concern from hypoglycemia and he does have lower blood glucose here during his stay with us, has not had a hemoglobin A1c since October we will repeat 1 in the morning Patient is awake alert appropriate he is not focal. Cardiac exam is regular lung exam is clear Unexplained syncopal episode felt to be noncardiogenic per cardiology. Will check an A1c continue supportive care evaluate for possible return home soon Documented By: Cuong Sherman MD Subjective Pt seen at bedside while staff were getting vitals so right as he woke up. He notes pain at the IV site in his R distal arm (which looks possibly infiltrated) but otherwise states he is "fine" and just tired since he was just woken up. Pt mumbles and is difficult to understand as such at times. No cough noted this morning. No chest pain. Review of Systems Review of Systems: per HPI Physical Exam Physical Exam: General:Alert and oriented, no acute distress noted HEENT: Normocephalic, moist oral mucosa, Cardio: Regular rate and rhythm, Resp:Globally poor air movement noted but no crackles or rhonchi auscultated GI: Soft and nontender, nondistended Skin: Warm, pink, dry, Results & Data Results & Data Vital Signs (Past 12 Hours) Vital Signs Temp Pulse Pulse Resp BP Pulse Ox O2 Del Method 07/01/25 04:00 36.5 C 82 18 106/72 94 CPAP 07/01/25 02:56 79 18 91 06/30/25 23:52 36.4 C L 83 18 101/53 L 92 CPAP 06/30/25 22:56 80 17 90 06/30/25 21:46 78 06/30/25 20:15 Nasal Cannula 06/30/25 19:45 36.4 C L 80 18 98/64 L 93 Nasal Cannula O2 Flow Rate 07/01/25 04:00 07/01/25 02:56 4 06/30/25 23:52 06/30/25 22:56 4 06/30/25 21:46 06/30/25 20:15 4 06/30/25 19:45 4 Resident Activity Tracking Resident Involvement: Resident Care Provided Care Provided: Adult Hospital Medicine
[2025-07-01] MEDS ORDERED: LANTUS PER UNIT CHARGE SC SCH ×3 (09:00→21:00)
--- NOTE | 2025-07-01 09:10 | Cardiology Progress Note ---
Date of Service July 01, 2025 Assessment & Plan (1) Syncope and collapse: (2) Chronic respiratory failure with hypoxia and hypercapnia: (3) Basilar artery occlusion: (4) (HFpEF) heart failure with preserved ejection fraction: Plan Pmhx: 1. Diastolic and right sided HF with preserved LV EF 60-65% 2. Nonocclusive CAD s/p right heart cath on 04/30/2020 (PA diastolic 32, single vessel 50% lesion in RCA) which was unchanged from prior cath 2017, 3. HTN 4. HLD 5. DM 6. BETTE on bipap 7. Chronic hypoxic respiratory failure using 3-5L O2 at home. 8. December 2023 with sepsis related to an infected right leg-he underwent BKA with Dr. Greenberg. 9. 04/2024 with possible seizure - Concern for Basilar artery territory Acute ischemic stroke, etiology large vessel atherosclerotic disease (Occlusion of proximal basilar artery, right V4 segment and left vertebral artery) 10. Chronic bilateral vertebral occlusionR2 (congenital variant) 11. Chronic Basilar occlusionR2 (congenital variant) 12. PAD Mr. Monte is not having any chest pain today and appears on the dry side. Hi s high sensitivity troponin was only marginally elevated and trended back down. His heparin can be discontinued unless there is concern for PE with his hypoxic episode. His lower extremity doppler was negative for PE and he has not had any recent travel or surgeries making this less likely. He should continue on CAD medications with DAPT, ACEi and beta shi. His blood pressure is controlled. He has had no further syncopal events. His episode is likely a repeat of previous attributable to his chronic vertebral and basilar occlusions. We will have him wear an event monitor after discharge to rule out arrhythmia. He has not demonstrated any concerning arrhythmias on telemetry. His case was discussed with Dr. Bravo who is in agreement with the plan. Admission and Anticipated Discharge Date Admission Date: June 30, 2025 Subjective Mr. Monte feels tired but otherwise has no complaints. He continues to require 4L O2 but notes that he uses 2-4 L at home. No chest pain. No sob. No palpitations. He is in SR on the monitor. Review of Systems Review of Systems: All systems reviewed & are unremarkable except as noted in HPI & below Physical Exam Constitutional: WD/WN, vitals as above Respiratory: normal respiratory effort, lungs clear to auscultation Cardiovascular: RRR, no murmur, no edema Skin: no rashes, warm and dry Neurologic: moves all extremities and awake Psychiatric: A+Ox3, euthymic affect Results & Data Vital Signs (Past 12 Hours) Vital Signs Temp Pulse Pulse Resp BP BP Pulse Ox 07/01/25 07:42 36.5 C 85 19 120/77 90 07/01/25 07:28 83 07/01/25 04:00 36.5 C 82 18 106/72 94 07/01/25 02:56 79 18 91 06/30/25 23:52 36.4 C L 83 18 101/53 L 92 06/30/25 22:56 80 17 90 06/30/25 21:46 78 O2 Del Method O2 Flow Rate 07/01/25 07:42 Nasal Cannula 4 07/01/25 07:28 07/01/25 04:00 CPAP 07/01/25 02:56 4 06/30/25 23:52 CPAP 06/30/25 22:56 4 06/30/25 21:46
[2025-07-01] MEDS: DEXTROSE 50% 50 ML SYRINGE IV PRN (11:51)
[2025-07-01] MEDS ORDERED: Nursing to Pharmacy Communication SCH (13:15)
--- NOTE | 2025-07-01 15:16 | Fluoroscopy Report ---
FL video swallow CLINICAL HISTORY: dysphagia. TECHNIQUE: Video fluoroscopic evaluation of swallowing was performed in the AP and lateral projection s by the speech pathology staff. The patient is fed nectar-thick and thin liquid barium, a barium coa jose wafer, and barium pudding. FLUOROSCOPY TIME: 1 minute 11 seconds. COMPARISON: None FINDINGS: No aspiration seen with any barium consistency. IMPRESSION: No aspiration seen. ACT 112: Negative or not required by law. Electronically signed by: Romeo Gerard M.D. 07/01/2025 3:15 PM
--- NOTE | 2025-07-01 17:33 | Billing Data ---
Date of Service July 01, 2025 Coding Level of Care Code 79985 SUB INP/OBS CARE
--- NOTE | 2025-07-01 18:03 | Electrocardiogram Report ---
Test Reason : Blood Pressure : */* mmHG Vent. Rate : 90 BPM Atrial Rate : 90 BPM P-R Int : 232 ms QRS Dur : 164 ms QT Int : 412 ms P-R-T Axes : 62 119 -16 degrees QTcB Int : 504 ms Sinus rhythm with 1st degree A-V block Right bundle branch block Abnormal ECG When compared with ECG of 28-Jun-2025 23:09, No significant change was found Confirmed by Ervin Mercado ([id number]) on 07/01/2025 6:03:27 PM Referred By: REFERRED SELF Confirmed By: Ervin Mercado
[2025-07-01] MEDS: HEPARIN SOD 5,000 UNIT/0.5 ML VIAL SQ SCH (20:39)
[2025-07-01] MEDS: LANTUS PER UNIT CHARGE SC SCH (20:39)
[2025-07-02 06:14] LABS: Anion Gap 3.0 (3-11); Blood Urea Nitrogen 37.0 mg/dl (6-23); Calcium 9.0 mg/dl (8.6-10.3); Carbon Dioxide 35.0 mmol/L (21-32); Chloride 102.0 mmol/L (98-107); Creatinine Clr Calc Pharmacy 40.4 ml/min; Glucose 195.0 mg/dl (70-99(Fasting)); Potassium 4.9 mmol/L (3.5-5.1); Sodium 140.0 mmol/L (136-145)
[2025-07-02 06:21] LABS: ANTI-Xa, UFH(UnfractionatedHep < 0.10 IU/ml (0.3-0.7)
--- NOTE | 2025-07-02 07:10 | Hospitalist Progress Note ---
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 #Syncope - witnessed by family at home ; unable to recall any prodromal nausea, diaphoresis, vision change, flushing sensation; they deny any associated incontinence; patient does have pertinent comorbidities including their cardiovascular disease, essential hypertension, type 2 diabetes mellitus; initial EKG unremarkable for acute change. CXR with stable cardiomegaly w/ pulmonary vascular congestion and stable stranding and patchy opacities in the lung bases. CT chest with stable changes, 9mm calcified endobronchial lesion at the origin in left upper lobe w/ atelectasis and partial collapse of left upper lobe, these are stable findings - EKG: first degree AV block, RBBB, possible septal infarct not significantly changed from prior EKG - doppler LUE w/o evidence of DVT - unclear etiology of syncopal episode at this time and patient poor historian - Orthostatics positive (limited due to BKA). Lying 118/71 and sitting 90/69 - recommend taking movements slowly. - PT/OT eval pending - curiously, has been hypoglycemic here, question if this may be contributing to his syncope at home, which per pt is actually a recurrent issue, although his A1c is 10.8% #MADDI Cr 1.57-->1.92-->1.75 -> 2.08 -> 2.05 -hold lasix, hold NSAIDs, will hold his ACEi also -encourage PO intake -follow AM BMP #Possible aspiration event - noted with dinner over the weekend - speech eval done and function appears wnl, so given a diet - will continue to monitor for further events #Angina, secondary to ACS vs atypical angina?a - troponin I: 27->22, and this slight bump may be due to impaired renal clearance from MADDI - nitroglycerin prn for discomfort - has not had any further episodes since being here - cardiology consulted; will do an event monitor on the outpatient side #HFpEF/pulmonary hypertension - last echo 10/23/24 - normal LVF, grade I diastolic dysfunction with flattened septum, severe dilation of RV with reduced RV function RV systolic pressure 30- 40mmHg, mildly dilated LA, moderately dilated RA, aortic valve stenosis, mod to severe TR - continue metoprolol - hold lasix as above - does not appear to be in overt exac today #COPD//chronic respiratory failure with hypoxia - oxygen as needed #T2DM - SSI ordered - last A1c 6.7% - low blood sugar levels this morning so decreased his long acting and loosened his short acting regimes #CAD/PAD - s/p right BKA - continue clopidogrel 75mg po daily, rosuvastatin 10mg po daily and cilostazol 100 mg po bid #HTN - continue metoprolol succinate 50mg po daily DVT: heparin SQ Dispo: pending PT/OT evals Admission and Anticipated Discharge Date Admission Date: June 30, 2025 Supervising Physician Co-Signing Physician Notes Resident Physician Supervision Note: I personally examined the patient and verified all perez points of history and exam, discussed case, and agree with decision making with Dr. Levy I discussed the case with the resident and agree with the findings and plan as documented in the note. Any exceptions or clarifications are listed here: None Patient was cleared by cardiology with no further inpatient testing required. Patient's pain is slightly elevated. A1c has been elevated to 10 which likely does not completely rule out the reinforces the fact that he likely does not have low blood sugars. Patient is awake alert appropriate he is not focal. Cardiac exam is regular lung exam is clear Unexplained syncopal episode felt to be noncardiogenic per cardiology. Likely renal function for improvement likely discharge in 1 day. Documented By: Cuong Sherman MD Subjective Pt seen at bedside. Initially he was asleep but easily arousable to voice. Pt states he feels fine today, no major concerns, he states he "just wants to get out of this place." Otherwise no issues with eating, no chest pain, no shortness of breath more than his baseline. No further questions or concerns. Review of Systems Review of Systems: per HPI Physical Exam Physical Exam: General:Alert and oriented, no acute distress noted HEENT: Normocephalic, moist oral mucosa, Cardio: Regular rate and rhythm, Resp:Globally poor air movement noted but no crackles or rhonchi auscultated GI: Soft and nontender, Skin: Warm, pink, dry, Results & Data Results & Data Vital Signs (Past 12 Hours) Vital Signs Temp Pulse Pulse Resp BP Pulse Ox O2 Del Method 07/02/25 07:07 84 07/02/25 03:49 23 07/02/25 03:00 36.5 C 88 18 125/79 94 Nasal Cannula 07/01/25 23:55 Nasal Cannula, CPAP 07/01/25 23:52 63 07/01/25 23:00 36.4 C L 88 20 108/69 93 Nasal Cannula 07/01/25 22:25 87 18 96 07/01/25 19:45 36.4 C L 90 20 111/72 95 Nasal Cannula O2 Flow Rate 07/02/25 07:07 07/02/25 03:49 4 07/02/25 03:00 4 07/01/25 23:55 4 07/01/25 23:52 07/01/25 23:00 4 07/01/25 22:25 4 07/01/25 19:45 4 Resident Activity Tracking Resident Involvement: Resident Care Provided Care Provided: Adult Hospital Medicine
[2025-07-02 07:45] LABS: Hemoglobin A1C 10.8 % (4.5-5.6)
--- NOTE | 2025-07-02 09:20 | Cardiology Progress Note ---
Date of Service July 02, 2025 Assessment & Plan (1) Syncope and collapse: (2) Chronic respiratory failure with hypoxia and hypercapnia: (3) Basilar artery occlusion: (4) (HFpEF) heart failure with preserved ejection fraction: Plan Pmhx: 1. Diastolic and right sided HF with preserved LV EF 60-65% 2. Nonocclusive CAD s/p right heart cath on 04/30/2020 (PA diastolic 32, single vessel 50% lesion in RCA) which was unchanged from prior cath 2017, 3. HTN 4. HLD 5. DM 6. BETTE on bipap 7. Chronic hypoxic respiratory failure using 3-5L O2 at home. 8. December 2023 with sepsis related to an infected right leg-he underwent BKA with Dr. Greenberg. 9. 04/2024 with possible seizure - Concern for Basilar artery territory Acute ischemic stroke, etiology large vessel atherosclerotic disease (Occlusion of proximal basilar artery, right V4 segment and left vertebral artery) 10. Chronic bilateral vertebral occlusionR2 (congenital variant) 11. Chronic Basilar occlusionR2 (congenital variant) 12. PAD Mr. Monte is not having any chest pain today and appears on the dry side. Hi s high sensitivity troponin was only marginally elevated and trended back down. He should continue on CAD medications with DAPT, ACEi and beta shi. His blood pressure is controlled. He has had no further syncopal events. His episode is likely a repeat of previous attributable to his chronic vertebral and basilar occlusions. We will have him wear an event monitor after discharge to rule out arrhythmia. He has not demonstrated any concerning arrhythmias on telemetry. His A1c is very poorly controlled and he will need close follow up with his pcp or endocrinology on discharge to adjust his home regimen. His case was discussed with Dr. Bravo who is in agreement with the plan. Admission and Anticipated Discharge Date Admission Date: June 30, 2025 Subjective Mr. Monte feels that he is at his baseline and would like to go home. He is not having any worsening sob or chest pain. He is in SR on the monitor. Review of Systems Review of Systems: All systems reviewed & are unremarkable except as noted in HPI & below Physical Exam Constitutional: WD/WN, vitals as above Respiratory: normal respiratory effort, lungs clear to auscultation Cardiovascular: RRR, no murmur, no edema Skin: no rashes, warm and dry Neurologic: moves all extremities and awake Psychiatric: A+Ox3, euthymic affect Results & Data Vital Signs (Past 12 Hours) Vital Signs Temp Pulse Pulse Resp BP Pulse Ox O2 Del Method 07/02/25 08:47 Nasal Cannula 07/02/25 07:52 36.8 C 94 H 20 115/72 93 Nasal Cannula 07/02/25 07:07 84 07/02/25 03:49 23 07/02/25 03:00 36.5 C 88 18 125/79 94 Nasal Cannula 07/01/25 23:55 Nasal Cannula, CPAP 07/01/25 23:52 63 07/01/25 23:00 36.4 C L 88 20 108/69 93 Nasal Cannula 07/01/25 22:25 87 18 96 O2 Flow Rate 07/02/25 08:47 5 07/02/25 07:52 4 07/02/25 07:07 07/02/25 03:49 4 07/02/25 03:00 4 07/01/25 23:55 4 07/01/25 23:52 07/01/25 23:00 4 07/01/25 22:25 4
--- NOTE | 2025-07-02 17:55 | Billing Data ---
Date of Service July 02, 2025 Coding Level of Care Code 02848 SUB INP/OBS CARE
[2025-07-02] MEDS: LACTATED RINGER'S 1,000 ML IV SCH (18:18)
[2025-07-03 06:24] LABS: Anion Gap 7.0 (3-11); Blood Urea Nitrogen 31.0 mg/dl (6-23); Calcium 9.1 mg/dl (8.6-10.3); Carbon Dioxide 32.0 mmol/L (21-32); Chloride 101.0 mmol/L (98-107); Creatinine Clr Calc Pharmacy 50.8 ml/min; Glucose 107.0 mg/dl (70-99(Fasting)); Potassium 4.5 mmol/L (3.5-5.1); Sodium 140.0 mmol/L (136-145)
[2025-07-03 06:34] LABS: ANTI-Xa, UFH(UnfractionatedHep < 0.10 IU/ml (0.3-0.7)
[2025-07-03 07:13] VITALS: RESP 16; TEMP 98.1; O2SAT 96
[2025-07-03] MEDS: ACETAMINOPHEN 500 MG TAB PO ONE (08:00)
--- NOTE | 2025-07-03 08:18 | Discharge Summary ---
Date of Service July 03, 2025 Admission HPI Per Admitting Provider Mr. 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 The patient has had a progressive cough over the past 4 weeks has been nonproductive; they deny any progressive dyspnea on exertion, orthopnea, platypnea, hemoptysis, chest pain, pleuritic chest pain, lower extremity edema or abdominal distention. The patient is had no recent changes to the medication regimen however they are unsure what medications they take as this is primarily managed by their [id number]. The patient overall is unable to provide much medical history however cannot recall an episode of syncopal versus almost syncope several days before his current presentation that may have been associated with a coughing episode though the patient is not entirely sure. Admission Exam Per Admitting Provider General: Adult male in no acute distress Vital Signs: Reviewed HEENT: Moist mucous membranes; perioral cyanosis Pulmonary: Symmetric chest wall excursion without restriction; clear to auscultation bilaterally with slight diminished air movement in the bases bilaterally Cardiovascular: Regular rate and rhythm without murmurs, rubs, or gallops; S1 and S2 normal; no notable lower extremity edema Gastrointestinal: distended, soft; nontender throughout with normal bowel sounds Musculoskeletal: right BKA appears well Neurologic: CN II-XII grossly intact; no discernible focal weakness nor paresthesias Principal Diagnosis Syncope Discharge Exam General:Alert and oriented, no acute distress noted HEENT: Normocephalic, moist oral mucosa, Cardio: Regular rate and rhythm, Resp:Globally poor air movement noted which is improved from yesterday, no crackles or rhonchi auscultated GI: Soft and nontender, Skin: Warm, pink, dry, Discharge Data Allergies Allergy/AdvReac Type Severity Reaction Status Date / Time empagliflozin Allergy Intermediate Nausea, Verified 05/31/25 10:02 [From Jardiance] Dizziness nitroglycerin AdvReac Intermediate Unknown - Unverified 05/31/25 10:02 Was just told to not take it as precaution Consultations 06/27/25 13:44 ED Decision to Admit Stat 06/29/25 18:58 Consult Cardiology Routine Ordered Studies 06/27/25 12:27 CT chest without contrast [CT chest diagnostic wo con] Stat 06/28/25 09:42 US venous doppler LE LT Routine 07/01/25 09:00 FL video swallow Routine Hospital Course (1) Syncope and collapse: (2) Chronic respiratory failure with hypoxia and hypercapnia: (3) Right-sided congestive heart failure: (4) Mild CAD: (5) Basilar artery occlusion: Plan Patient is a 70 y/o M PMHx HFpEF, pulmonary hypertension(WHO group 2 and 3), chronic respiratory failure with hypoxia and hypercapnia requiring supplemental O2 at home, T2DM with multiple complications, class II obesity, and BKA admitted for evaluation of witnessed syncopal episode at home w/o known cause. #Syncope - witnessed by family at home on day of admission; unable to recall any prodromal nausea, diaphoresis, vision change, flushing sensation; they deny any associated incontinence; patient does have pertinent comorbidities including their cardiovascular disease, essential hypertension, type 2 diabetes mellitus; initial EKG unremarkable for acute change. CXR with stable cardiomegaly w/ pulmonary vascular congestion and stable stranding and patchy opacities in the lung bases. CT chest with stable changes, 9mm calcified endobronchial lesion at the origin in left upper lobe w/ atelectasis and partial collapse of left upper lobe, these are stable findings - EKG: first degree AV block, RBBB, possible septal infarct not significantly changed from prior EKG - doppler LUE w/o evidence of DVT - unclear etiology of syncopal episode at this time and patient poor historian - Orthostatics positive (limited due to BKA). Lying 118/71 and sitting 90/69 - recommend taking movements slowly. - curiously, had been significantly hypoglycemic here on home dosing of long acting with sliding scale, question if this may be contributing to his syncope at home, which per pt is actually a recurrent issue, although his A1c is 10.8% (as such, will hold glipizide on D/C until PCP eval) - to follow-up with cardiology on discharge for event monitor to further investigate syncope episodes #MADDI, improved - Cr peak at 2, improved to 1.6 at time of discharge - lasix was held, as was his lisinopril - given good BPs in the hospital while off the lisinopril (110-120s/60-70s), will hold this on discharge until f/u with PCP #Possible aspiration event - noted with dinner over the weekend - speech eval done and function appears wnl, so given a diet and had no further issues #Angina, secondary to ACS vs atypical angina?a - troponin I: 27->22, and this slight bump may be due to impaired renal clearance from MADDI - nitroglycerin prn for discomfort - has not had any further episodes since being here - cardiology consulted; will do an event monitor on the outpatient side #HFpEF/pulmonary hypertension - last echo 10/23/24 - normal LVF, grade I diastolic dysfunction with flattened septum, severe dilation of RV with reduced RV function RV systolic pressure 30- 40mmHg, mildly dilated LA, moderately dilated RA, aortic valve stenosis, mod to severe TR - was not in exac while in the hospital #COPD//chronic respiratory failure with hypoxia - oxygen as needed, he uses 2-4L at baseline at home which he is essentially down to at discharge Given significant comorbidities, to f/u with palliative on discharge, which he is agreeable to. PT/OT evals recommended home and pt agreeable. Total Time Total Time Spent Total Time Spent (In Minutes): As per attending attestation. Discharge Plan Discharge Items Patient Disposition: Home - Self-Care Reason For Visit: SYNCOPAL EPISODE Discharge Diagnosis: Syncope Condition on Discharge: Fair Activity: Resume your previous activity Non-emergency contact: Primary Care Provider Call non-emergency contact if: your symptoms worsen Follow-up/Referrals: Mckenna Fernando PA-C [Primary Care Provider] - (Please call your primary care provider to schedule a hospital follow-up appointment within 7-10 days) Diet: Heart Healthy Addtl Attending Provider Instructions: You were admitted to the hospital for an episode of passing out (also called syncope.) While at the hospital, you had labs and an EKG, along with some scans, all of which did not point to a specific cause of your episode. Due to this, following up with your primary care provider and air transport professionals is really important as they continue to track your symptoms and evaluate you further for other causes of syncope. While at home, you should plan to take your blood pressure and pulse twice daily until you follow-up with your primary care physician. You should also check your blood sugar several times a day until you follow-up with your doctor, as there are many reasons that someone could pass out. It is important to keep well hydrated, aiming for around 40 ounces of noncaffeinated fluids a day (be cautious not to go overboard with fluids or salt given your heart). Avoid alcohol. Avoid standing up quickly if you have been sitting or laying for a prolonged time. Take all of your medications as prescribed. Please follow-up with your primary care doctor within 7 days of discharge from the hospital. Pending Studies at Discharge: No Stand-Alone Forms: My [facility] [employer], Smoking Cessation Medications and DC Order Prescriptions: Continued Mounjaro 2.5 mg/0.5 mL pen injector 2.5 mg SUBCUT UD Patient Comments: 06/27-pt isnt sure if he's taking the medication. last filled 06/06/25 Rx Instructions: 2.5 mg wk for 4 weeks then increase to 5mg wk Stiolto Respimat 2.5-2.5 mcg/actuation mist 0 puff inhalation DAILY Patient Comments: 06/27- last filled 12/12 30 day supply. original: 2 puff inhalation daily. metoprolol succinate 50 mg tablet extended release 24 hr 50 mg PO DAILY rosuvastatin 10 mg tablet 0 mg PO DAILY Patient Comments: 06/27- last filled 01/17 90 day supply #90. original: 10 mg po daily omeprazole 40 mg capsule,delayed release(DR/EC) 40 mg PO DAILY aspirin [Children's Aspirin] 81 mg Tablet,Chewable 81 mg PO DAILY Patient Comments: 06/27- otc unable to verify metformin 1,000 mg tablet 1,000 mg PO BID cilostazol 100 mg tablet 0 mg PO BID Patient Comments: 06/27- last filled 01/20 90 day supply #180. original: 100 mg po bid furosemide 40 mg tablet 0 mg PO BID Patient Comments: 06/27- last filled 11/26 45 day supply #90. original: 40 mg po bid Rx Instructions: per daughter has been taking twice a day clopidogrel 75 mg tablet 75 mg PO DAILY nortriptyline 25 mg capsule 25 mg PO HS insulin glargine [Lantus Solostar U-100 Insulin] 100 unit/mL (3 mL) insulin pen 60 unit SUBCUT BID Patient Comments: 06/27- per fill history 05/09 directions are written for 60 units bid; Original: 50 units bid Held glipizide 5 mg tablet 0 mg PO BID Hold Instructions: Resume on 07/12/25. Hold until seen by primary care doctor Patient Comments: 06/27- last filled 03/21 30 day supply #60. original: 5mg po bid lisinopril 30 mg Tablet 30 mg PO DAILY Hold Instructions: Resume on 07/12/25. Hold until seen by primary care provider Discharge Orders: Discharge Order (Routine); Ordered 07/03/25 Ordered By: Cristiana Lorenzo/Other Patient Handouts: Shortness Breath [employer], Causes of Syncope Admission Data Admit Date/Time: 06/30/25 10:10 Attending Provider: Cuong Sherman Admit Provider: Fred Oneill Primary Care Provider: Mckenna Fernando Other Providers: Fred Oneill; Shaniuqa Bravo Other Interventions: Discharge Summary Assessment (RN) Last Done: 07/03/25 09:34 Supervising Physician Co-Signing Physician Notes Resident Physician Supervision Note: I personally examined the patient and verified all perez points of history and exam, discussed case, and agree with decision making with Dr. Levy I discussed the case with the resident and agree with the findings and plan as documented in the note. Any exceptions or clarifications are listed here: None Patient was cleared by cardiology with no further inpatient testing required. Patient's pain is slightly elevated. A1c has been elevated to 10 which likely does not completely rule out the reinforces the fact that he likely does not have low blood sugars. Patient is awake alert appropriate he is not focal. Cardiac exam is regular lung exam is clear Unexplained syncopal episode felt to be noncardiogenic per cardiology. improved renal function =>discharge Documented By: Cuong Sherman MD Resident Activity Tracking Resident Involvement: Resident Care Provided Care Provided: Adult Hospital Medicine
[2025-07-03 09:35] VITALS: BP 115/72; PULSE 92
--- NOTE | 2025-07-03 17:06 | Billing Data ---
Date of Service July 03, 2025 Coding Level of Care Code 47314 IN/OBS DISCH 30 MIN/LESS
--- NOTE | 2025-07-04 10:39 | Billing Data ---
Date of Service June 28, 2025 Coding Level of Care Code 81785 SUB INP/OBS CARE MIN
--- NOTE | 2025-07-04 10:39 | Billing Data ---
Date of Service June 29, 2025 Coding Level of Care Code 91260 SUB INP/OBS CARE MIN
--- NOTE | 2025-07-04 10:40 | Billing Data ---
Date of Service June 30, 2025 Coding Level of Care Code 91617 SUB INP/OBS CARE
--- NOTE | 2025-07-04 10:56 | Coding Query ---
CODING QUERY To promote full compliance with coding requirements relating to patient care, provider participation is requested in all cases of manager of recruiting uncertainty. Please assist us with the question(s) below: Coding Question(s): Pt was admitted for syncope. Syncope itself is a symptom code. Can you please clarify below? Physician's Response(s): ( ) Syncope due to Orthostatic Hypotension (mentioned in 07/02/25 PN) ( ) Syncope due to other ( xx ) Syncope due to unknown cause Thank you Kim Oropeza Principal Diagnosis: "that condition established after study, to be chiefly responsible for occasioning the admission of the patient to the hospital for care." Co-Existing Principal Diagnosis: "when two or more diagnoses equally meet the criteria for principal diagnosis as determined by the circumstances of admission, diagnostic work up, and/or therapy provided, and the Alphabetic Index, Tabular List, or another coding guideline does not provide sequencing direction, any one of the diagnoses may be sequenced first." "When the physician has documented what appears to be a current diagnosis in the body of the record, but has not included the diagnosis in the final diagnostic statement, the physician should be asked whether the diagnosis should be added." (Source Coding [facility] 2 QTR90. p3-4) MELL
== END 2025-07-03 10:55 | disposition home or self-care (01) | DRG 312 ==
LOC: 2N 10:12 → ED 10:12 → SUATTDRO 13:47 → 2N 14:37 → SUATTDRO 06-30 10:10

== ENCOUNTER 2025-07-10 11:12 | Inpatient (IN) ==
[2025-07-10] MEDS: ALBUT/IPRATROP 3MG/0.5MG NEB 3 ML VIAL INH STA (11:51)
--- NOTE | 2025-07-10 11:57 | Electrocardiogram Report ---
Test Reason : Blood Pressure : */* mmHG Vent. Rate : 100 BPM Atrial Rate : 100 BPM P-R Int : 234 ms QRS Dur : 154 ms QT Int : 352 ms P-R-T Axes : 80 155 -43 degrees QTcB Int : 454 ms Poor data quality, interpretation may be adversely affected Sinus rhythm with 1st degree A-V block with occasional Premature ventricular complexes Indeterminate axis Right bundle branch block Inferior infarct , age undetermined Anteroseptal infarct , age undetermined Abnormal ECG When compared with ECG of 29-Jun-2025 18:06, Premature ventricular complexes are now Present T wave inversion more evident in Inferior leads Confirmed by Ivan Chi ([id number]) on 07/10/2025 11:57:15 AM Referred By: Confirmed By: Ivan Chi
--- NOTE | 2025-07-10 11:59 | XRay Report ---
XR chest 1V portable CLINICAL HISTORY: Dyspnea. COMPARISON STUDY: Chest CT June 27, 2025. Chest radiograph June 30, 2025. FINDINGS: No pneumothorax or pleural effusion is present. Cardiomegaly is again noted. Mediastinal co ntours are stable. Left perihilar opacity is unchanged. Mild right basilar opacity is also unchanged. Probably vascular congestion is similar to prior exam. IMPRESSION: 1. No acute cardiopulmonary findings. No significant change in appearance of the chest. Cardiomegaly with pulmonary vascular congestion. 2. Left perihilar and right basilar opacities which favor atelectasis or scarring. ACT 112: Negative or not required by law. Electronically signed by: Thomas Monte M.D. 07/10/2025 11:58 AM
[2025-07-10 12:11] LABS: Base Excess VBG 1.2 mEq/L; HCO3 VBG 29 mmol/L; Oxygen Saturation VBG 62.1 %; PCO2 VBG 61 mmHg (38-50); PO2 VBG 42 mmHg; pH VBG 7.29 (7.36-7.41)
[2025-07-10 12:15] LABS: Hematocrit (blood only) 38.1 % (42.0-52.0); Hemoglobin 10.9 g/dL (14.0-18.0); Immature Granulocytes # (auto) 0.05 K/uL (0.01-0.20); Immature Granulocytes % (auto) 0.5 %; Mean Corpuscular Hemoglobin 23.9 pg (25.0-34.0); Mean Corpuscular Volume 83.6 fL (80.0-100.0); Platelet Count 250 K/uL (130-400); RDW Standard Deviation 51.3 fL (36.4-46.3); Red Blood Count 4.56 M/uL (4.70-6.10); White Blood Count 9.93 K/ul (4.8-10.8)
[2025-07-10 12:41] LABS: Alanine Aminotransferase 9.0 U/L (7-52); Albumin Globulin Ratio 1.3 (0.9-2); Albumin Level 4.0 gm/dl (3.4-5.0); Alkaline Phosphatase 136.0 U/L (34-104); Anion Gap 6.0 (3-11); Bilirubin,Total 0.5 mg/dl (0.2-1.0); Blood Urea Nitrogen 27.0 mg/dl (6-23); Calcium 9.8 mg/dl (8.6-10.3); Carbon Dioxide 31.0 mmol/L (21-32); Chloride 99.0 mmol/L (98-107); Creatinine Clr Calc Pharmacy 59.2 ml/min; Globulin 3.2 gm/dl (2.5-4.0); Glucose 319.0 mg/dl (70-99(Fasting)); Magnesium 1.7 mg/dl (1.7-2.4); Potassium 5.5 mmol/L (3.5-5.1); Sodium 136.0 mmol/L (136-145); Total Protein 7.2 gm/dl (6.0-8.3)
[2025-07-10] MEDS ORDERED: INSULIN HUMAN REGULAR PER UNIT 5 UNITS in SYRINGE 9.9 ML IV STA (12:54)
--- NOTE | 2025-07-10 12:56 | Emergency Department Note ---
Impression & Plan Acute on chronic respiratory failure with hypoxia and hypercapnia, Acute exacerbation of chronic obstructive pulmonary disease, Acute exacerbation of CHF (congestive heart failure), Acute hyperkalemia ED Provider Note NAME: LILLIAM SAEED AGE: 70 SEX: M : 1955 ARRIVES VIA: Walk-In INFORMANT: Patient, son ED PROVIDER(S): Paul Nguyen DO CHIEF COMPLAINT: dyspnea HPI: This is a 70-year-old male with the PMHx of COPD with chronic hypoxemic respiratory failure on 3 L of low-flow nasal cannula at baseline, hypertension, hyperlipidemia, BETTE, CHF, CKD, peripheral artery disease CAD and multiple hospital admissions presenting to [facility] for further evaluation of dyspnea. Patient is accompanied by his son who provide additional history. Patient reports severe dyspnea that has been worsening over the past week. Patient states he feels similar to when he was admitted just prior to . He states he was following up with his primary care doctor this morning. They recommended that he comes to the emergency department for further evaluation and possible admission. Patient states he has had a mild cough but no significant congestion. Cough is described as nonproductive. Patient states his dyspnea occurs at rest. He is unsure of any weight gain. Patient states that he has not had any significant chest pain. They deny abdominal pain, nausea and vomiting. No urinary complaints. No recent changes in bowel movements. Patient denies recent changes in medications or OTC supplements. Patient offers no other complaints, today. ADDITIONAL HISTORY OBTAINED: Per HPI Chronic Medical/Social Conditions Affecting Care: Per HPI PAST MEDICAL HISTORY: See Below PAST SURGICAL HISTORY: See Below FAMILY HISTORY: See Below SOCIAL HISTORY: See Below HOME MEDICATIONS: See Below ALLERGIES: See Below VITALS: See Below PHYSICAL EXAMINATION: GENERAL: Sitting up in bed, alert, ill appearing, well nourished, no distress, non-toxic EYE EXAM: normal conjunctiva. OROPHARYNX: no exudate, no erythema, lips, buccal mucosa, and tongue normal and mucous membranes are moist NECK: supple, no nuchal rigidity, no adenopathy, non-tender LUNGS: Mild tachypnea. Poor air movement in all lung maria. Normal chest wall mechanics HEART: no murmurs, regular rate, regular rhythm ABDOMEN: abdomen soft, non-tender, no masses, no rebound or guarding. Reducible umbilical hernia. SKIN: no rashes and no bruising UPPER EXTREMITIES: upper extremities are grossly normal. LOWER EXTREMITIES: No pitting edema. Right BKA. NEURO EXAM: Normal sensorium, GCS 15, normal speech, no gross weakness of arms, no gross weakness of legs. MEDICAL DECISION MAKING: Differential diagnoses includes but not limited to ACS, unstable angina, dysrhythmia, PNA, hypervolemia/pulmonary edema, CHF exacerbation, COPD exacerbation, PE, pneumothorax, pericardial effusion, cardiac tamponade, anxiety/psychogenic, viral URI In summary, this is a 70 year old male who presented with dyspnea. Differential as above. Nursing notes and pertinent past medical records reviewed. Vital signs reviewed and the patient is afebrile and HDS. Reviewed the patient's weights. Does appear that he is gained approximately 6 kg since discharge. History and presentation revealed Recent admission. He appears to have's over of COPD and CHF. This is led to multiple admissions in the past for acute on chronic hypoxemic hypercapnic respiratory failure. Appears the patient is supposed to wear BPAP at home but unsure if he is compliant with that. Physical examination revealed as above. As a result of my initial evaluation, IV access was established and the patient was placed on CCRM. Therapeutics ordered include treatments for COPD including steroids and DuoNebs. Will plan for x-ray and likely CT PE study for further evaluation of patient's ongoing dyspnea. Diagnostics interpreted by me include EKG and cardiac monitoring as listed below: -Cardiac Monitoring: An order was placed for continuous cardiac monitoring. The monitor shows a rate of 80-90s with regular rhythm. -ECG: Sinus rhythm at a ventricular rate of 95 bpm. There is a first-degree AV block. Right bundle branch block present. No significant ST segment changes to suggest STEMI. Intervals are within normal limits. Patient completed laboratory studies and imaging. CXR independently interpreted by me reveals no evidence of focal consolidation to suggest pna. No large pneumothorax or pleural effusion. No obvious displaced rib fracture. Results independently interpreted by me are mild anemia that is actually improved from prior. No significant leukocytosis. Procalcitonin is normal. Given no fevers, leukocytosis or elevated procalcitonin, significantly doubt severe bacterial infection at this time. Patient's kidney function continues to improve from prior draws. Patient does have hyperkalemia today. This is despite receiving DuoNebs. Will plan to manage with insulin, DuoNeb and calcium. These medications were ordered. Patient's VBG shows acute on chronic respiratory acidosis. Will initiate BPAP. Given the patient has acute on chronic Hypoxemic, hypercapnic respiratory failure, the patient was placed on BPAP. Patient is tolerating BPAP well. Patient is currently on 12/5 at 40% FiO2. Tidal volumes are in the 600s. Patient feels comfortable on this. Will continue on BPAP as an inpatient. Patient was also reporting atypical headaches and a CT head was ordered. CTH independently interpreted by me reveals no evidence of ICH. No significant hydrocephalus. No major skull fractures. CTH does not demonstrate findings to suggest an etiology of the patient's symptoms or presentation, today. CT PE study was independently interpreted by me as negative for large saddle pulmonary embolism. He does have evidence of hypervolemia as well as an elevated BNP. Diuresis was ordered. Do feel the patient's respiratory status is both related to COPD as well as CHF. Will allow the patient to rest on BiPAP and admit him to the hospitalist for further care. Ultimately, the decision was made to admit the patient for acute on chronic hypoxemic hypercapnic respiratory failure in the setting of COPD and CHF complicated by hyperkalemia. I discussed the case with the hospitalist service via telephone/TigerText and they are agreeable to admit the patient to their services. Based on the above, including the patient's age, coexisting illnesses, labs, imaging, and exam findings the decision to treat as an inpatient. I discussed the patient with the hospitalist team who recommended admission to their services. They received the medications, treatments, interventions indicated above and their condition remained guarded. I discussed my findings with the patient and their family and they understand and agree with the treatment plan. All patient / family questions were answered to their satisfaction. Consults/Care Managements Discussions: Per [facility] ER treatment provided: See above Procedures:none Critical Care: I have personally spent 45 minutes of critical care time in direct management of this patient. This includes bedside care, interpretation of diagnostic studies, and testing, discussion with consultants, patient, and family members, and other require inpatient management activities. This 45 minutes is in excess of all separately billable procedures. The chart was completed utilizing Backand voice recognition software. Grammatical errors, random word insertions, pronoun errors, and incomplete sentences are an occasional consequence of this system due to software limitations, ambient noise, and hardware issues. Any formal questions or concerns about the content, text, or information contained within the body of this dictation should be directly addressed to the physician for clarification. Past Med/Surg History Problem List (Updated 07/10/25 @ 22:09 by Paul Nguyen DO) Acute hyperkalemia (Acute) Acute exacerbation of CHF (congestive heart failure) (Acute) Acute exacerbation of chronic obstructive pulmonary disease (Acute) Acute on chronic respiratory failure with hypoxia and hypercapnia (Acute) Acute on chronic right-sided congestive heart failure Acute on chronic heart failure with preserved ejection fraction (HFpEF) Acute on chronic respiratory failure with hypoxia and hypercapnia Basilar artery occlusion Mild CAD Right-sided congestive heart failure Syncope and collapse (Acute) Cough (Acute) Hypomagnesemia (Acute) Acute dyspnea (Acute) Chronic respiratory failure with hypoxia and hypercapnia COPD with emphysema Constipation Status post below knee amputation of right lower extremity Hypoxia (Acute) Elevated brain natriuretic peptide (BNP) level (Acute) Hypomagnesemia (Acute) Acute dyspnea (Acute) RLL pneumonia (Acute) Weight gain (Acute) CHF (congestive heart failure) (Acute) Acute kidney injury COPD exacerbation Acute on chronic respiratory failure with hypoxia Pulmonary edema (Acute) Chronic hypoxemic respiratory failure (Acute) (HFpEF) heart failure with preserved ejection fraction Pulmonary hypertension Ex-smoker Pulmonary nodule S/P below knee amputation Endotracheally intubated RVF (right ventricular failure) Acute and chronic respiratory failure Pressure ulcer of right foot, unstageable Ischemic foot CHF (congestive heart failure) COPD (chronic obstructive pulmonary disease) Acute hyperglycemia (Acute) Acute hyponatremia (Acute) Cellulitis of foot, right (Acute) PAD (peripheral artery disease) (Acute) Occlusion of right popliteal artery (Acute) CKD (chronic kidney disease) stage 2, GFR 60-89 ml/min DVT prophylaxis BETTE (obstructive sleep apnea) Type 2 diabetes mellitus Coronary artery disease (Acute) Hypertension Abnormal pulmonary finding Abnormal chest CT Acute respiratory failure with hypoxia Pneumonia Hypoxia (Acute) Mucus plugging of bronchi (Acute) Medical History Pneumonia involving right lung Chest pain Chronic respiratory failure Gangrene due to arterial insufficiency Septic shock Hyperlipidemia Family History Other Family history non-contributory Social History Smoking Status: Former smoker Tobacco Type: Cigarettes Cigarettes Per Day: na; Smoking End Date: > 10 yrs; Second Hand Exposure: Yes; Do You Dip or Chew Tobacco: No; Tobacco Cessation Education Requested by Patient: No Hx Alcohol Use: No Hx Substance Use: No Preferred Language: Yi Communication Ability: Effective Asp Net Developer Required: No Beliefs That Will Affect Care: None Current Living Situation: Family Current Living Situation Comment: with son and daughter inlaw How many Children do You have: 5 Other Information That Helps Us Care for You: No Feels Safe at Home: Yes Safety Concerns: Feels Safe At This Time Assistive Devices: Oxygen - Continuous and Wheelchair Allergies Allergies Allergy/AdvReac Type Severity Reaction Status Date / Time empagliflozin Allergy Intermediate Nausea, Verified 05/31/25 10:02 [From Jardiance] Dizziness nitroglycerin AdvReac Intermediate Unknown - Unverified 05/31/25 10:02 Was just told to not take it as precaution Home Meds Home Medications Medication Instructions Recorded Confirmed aspirin 81 mg chewable tablet 81 mg PO DAILY 08/07/24 07/10/25 (Children's Aspirin) cilostazol 100 mg tablet 0 mg PO BID 08/07/24 07/10/25 clopidogrel 75 mg tablet 75 mg PO DAILY 08/07/24 07/10/25 furosemide 40 mg tablet 0 mg PO BID 08/07/24 07/10/25 glipizide 5 mg tablet 0 mg PO BID 08/07/24 07/10/25 insulin glargine 100 unit/mL (3 60 unit subcut BID 08/07/24 07/10/25 mL) subcutaneous pen (Lantus Solostar U-100 Insulin) lisinopril 30 mg tablet 30 mg PO DAILY 08/07/24 07/10/25 metformin 1,000 mg tablet 1,000 mg PO BID 08/07/24 07/10/25 metoprolol succinate 50 mg 50 mg PO DAILY 08/07/24 07/10/25 tablet,extended release 24 hr nortriptyline 25 mg capsule 25 mg PO HS 08/07/24 07/10/25 omeprazole 40 mg capsule,delayed 40 mg PO DAILY 08/07/24 07/10/25 release rosuvastatin 10 mg tablet 0 mg PO DAILY 08/07/24 07/10/25 tiotropium 2.5 mcg-olodaterol 2.5 0 puff inhalation DAILY 06/27/25 07/10/25 mcg/actuation mist for inhalation (Stiolto Respimat) tirzepatide 2.5 mg/0.5 mL 2.5 mg subcut UD 06/27/25 07/10/25 subcutaneous pen injector (Emma) Results & Data (ED) Vital Signs Vital Signs - 24 hr 07/10/25 11:14 07/10/25 11:43 07/10/25 11:43 Temperature 36.8 C Temperature Source Skin Pulse Rate 91 H 87 Pulse Rate [Apical] 87 Pulse Rhythm Regular Pulse Rhythm [Apical] Regular Pulse Strength [Apical] Normal Respiratory Rate 22 15 16 Respiratory Effort / Characteristics Non-Labored Spontaneous Non-Labored Spontaneous Respiratory Depth Normal Normal Respiratory Pattern Regular Regular Blood Pressure 126/79 Blood Pressure [Right Arm] 126/97 Blood Pressure Mean 94 Blood Pressure Mean [Right Arm] 106 Pulse Oximetry 94 95 96 Oxygen Delivery Method Nasal Cannula Nasal Cannula Nasal Cannula Oxygen Flow Rate 3 3 3 Fraction of Inspired Oxygen Sepsis Recent Fever Within 48 Hours No Sepsis New/Unexplained Change in Mental Status N/A Sepsis Action Taken by Nursing No Action Required 07/10/25 11:49 07/10/25 12:30 07/10/25 13:00 Temperature Temperature Source Pulse Rate 85 85 93 H Pulse Rate [Apical] Pulse Rhythm Pulse Rhythm [Apical] Pulse Strength [Apical] Respiratory Rate 19 Respiratory Effort / Characteristics Respiratory Depth Respiratory Pattern Blood Pressure 119/81 142/87 H Blood Pressure [Right Arm] Blood Pressure Mean 99 111 Blood Pressure Mean [Right Arm] Pulse Oximetry 94 91 Oxygen Delivery Method Nasal Cannula BiPAP Oxygen Flow Rate 3 Fraction of Inspired Oxygen Sepsis Recent Fever Within 48 Hours Sepsis New/Unexplained Change in Mental Status Sepsis Action Taken by Nursing 07/10/25 13:04 07/10/25 13:30 07/10/25 14:01 Temperature Temperature Source Pulse Rate 90 87 Pulse Rate [Apical] 93 H Pulse Rhythm Pulse Rhythm [Apical] Pulse Strength [Apical] Respiratory Rate 12 14 Respiratory Effort / Characteristics Spontaneous Non-Labored Spontaneous Respiratory Depth Respiratory Pattern Blood Pressure 132/92 Blood Pressure [Right Arm] Blood Pressure Mean 104 Blood Pressure Mean [Right Arm] Pulse Oximetry 15 L 96 97 Oxygen Delivery Method BiPAP BiPAP Oxygen Flow Rate Fraction of Inspired Oxygen 40 40 Sepsis Recent Fever Within 48 Hours Sepsis New/Unexplained Change in Mental Status Sepsis Action Taken by Nursing Laboratory Data 07/10/25 11:30 07/10/25 21:03 Lab Results 07/10/25 07/10/25 07/10/25 Range/Units 11:30 11:50 14:16 WBC 9.93 (4.8-10.8) K/ul RBC 4.56 L (4.70-6.10) M/uL Hgb 10.9 L (14.0-18.0) g/dL Hct 38.1 L (42.0-52.0) % MCV 83.6 (80.0-100.0) fL MCH 23.9 L (25.0-34.0) pg MCHC 28.6 L (32.0-36.0) g/dL RDW Std Deviation 51.3 H (36.4-46.3) fL RDW Coeff of Larry 17.0 H (11.5-14.5) % Plt Count 250 (130-400) K/uL MPV 12.3 (9.4-12.4) fL Immature Gran % (Auto) 0.5 % Neut % (Auto) 72.4 % Lymph % (Auto) 12.6 % Gonzales % (Auto) 7.9 % Eos % (Auto) 5.7 % Baso % (Auto) 0.9 % Neut # (Auto) 7.19 H (1.40-6.50) K/uL Lymph # (Auto) 1.25 (1.20-3.40) K/uL Gonzales # (Auto) 0.78 H (0.11-0.59) K/uL Eos # (Auto) 0.57 H (0.00-0.50) K/uL Baso # (Auto) 0.09 (0.00-0.20) K/uL Immature Gran # (Auto) 0.05 (0.01-0.20) K/uL VBG pH 7.29 L (7.36-7.41) VBG pCO2 61 H (38-50) mmHg VBG pO2 42 mmHg VBG HCO3 29 mmol/L VBG O2 Saturation 62.1 % VBG Base Excess 1.2 mEq/L Sodium 136 (136-145) mmol/L Potassium 5.5 H (3.5-5.1) mmol/L Chloride 99 (98-107) mmol/L Carbon Dioxide 31 (21-32) mmol/L Anion Gap 6 (3-11) BUN 27 H (6-23) mg/dl Creatinine 1.44 H (0.6-1.4) mg/dl Est Cr Clr Drug Dosing 59.2 ml/min eGFR 52.27 BUN/Creatinine Ratio 18.8 (10-20) Glucose 319 H* (70-99(Fasting)) mg/dl POC Glucose 256 H (70-99) mg/dl Calcium 9.8 (8.6-10.3) mg/dl Magnesium 1.7 (1.7-2.4) mg/dl Total Bilirubin 0.5 (0.2-1.0) mg/dl AST 13 (13-39) U/L ALT 9 (7-52) U/L Alkaline Phosphatase 136 H (34-104) U/L Troponin I High Sens 16.4 (0-20) pg/ml B-Natriuretic Peptide 147 H (0-100) pg/ml Total Protein 7.2 (6.0-8.3) gm/dl Albumin 4.0 (3.4-5.0) gm/dl Globulin 3.2 (2.5-4.0) gm/dl Albumin/Globulin Ratio 1.3 (0.9-2) Procalcitonin 0.03 (0-0.5) ng/ml Adenovirus (PCR) Not Detected (NotDetected) B. pertussis DNA (PCR) Not Detected (NotDetected) B.parapertussis DNA PCR Not Detected (NotDetected) C. pneumoniae DNA (PCR) Not Detected (NotDetected) Coronavirus OC43 (PCR) Not Detected (NotDetected) Coronavirus HKU1 (PCR) Not Detected (NotDetected) Coronavirus 229E (PCR) Not Detected (NotDetected) SARS-CoV-2 (PCR) Not Detected (NotDetected) Coronavirus NL63 (PCR) Not Detected (NotDetected) Human Metapneumovir PCR Not Detected (NotDetected) Influenza Type A (PCR) Not Detected (NotDetected) Influenza Type B (PCR) Not Detected (NotDetected) M. pneumoniae (PCR) Not Detected (NotDetected) Parainfluenza 1 (PCR) Not Detected (NotDetected) Parainfluenza 2 (PCR) Not Detected (NotDetected) Parainfluenza 3 (PCR) Not Detected (NotDetected) Parainfluenza 4 (PCR) Not Detected (NotDetected) RSV (PCR) Not Detected (NotDetected) Entero/Rhino (PCR) Not Detected (NotDetected) 07/10/25 Range/Units 14:52 WBC (4.8-10.8) K/ul RBC (4.70-6.10) M/uL Hgb (14.0-18.0) g/dL Hct (42.0-52.0) % MCV (80.0-100.0) fL MCH (25.0-34.0) pg MCHC (32.0-36.0) g/dL RDW Std Deviation (36.4-46.3) fL RDW Coeff of Larry (11.5-14.5) % Plt Count (130-400) K/uL MPV (9.4-12.4) fL Immature Gran % (Auto) % Neut % (Auto) % Lymph % (Auto) % Gonzales % (Auto) % Eos % (Auto) % Baso % (Auto) % Neut # (Auto) (1.40-6.50) K/uL Lymph # (Auto) (1.20-3.40) K/uL Gonzales # (Auto) (0.11-0.59) K/uL Eos # (Auto) (0.00-0.50) K/uL Baso # (Auto) (0.00-0.20) K/uL Immature Gran # (Auto) (0.01-0.20) K/uL VBG pH (7.36-7.41) VBG pCO2 (38-50) mmHg VBG pO2 mmHg VBG HCO3 mmol/L VBG O2 Saturation % VBG Base Excess mEq/L Sodium (136-145) mmol/L Potassium (3.5-5.1) mmol/L Chloride (98-107) mmol/L Carbon Dioxide (21-32) mmol/L Anion Gap (3-11) BUN (6-23) mg/dl Creatinine (0.6-1.4) mg/dl Est Cr Clr Drug Dosing ml/min eGFR BUN/Creatinine Ratio (10-20) Glucose (70-99(Fasting)) mg/dl POC Glucose 224 H (70-99) mg/dl Calcium (8.6-10.3) mg/dl Magnesium (1.7-2.4) mg/dl Total Bilirubin (0.2-1.0) mg/dl AST (13-39) U/L ALT (7-52) U/L Alkaline Phosphatase (34-104) U/L Troponin I High Sens (0-20) pg/ml B-Natriuretic Peptide (0-100) pg/ml Total Protein (6.0-8.3) gm/dl Albumin (3.4-5.0) gm/dl Globulin (2.5-4.0) gm/dl Albumin/Globulin Ratio (0.9-2) Procalcitonin (0-0.5) ng/ml Adenovirus (PCR) (NotDetected) B. pertussis DNA (PCR) (NotDetected) B.parapertussis DNA PCR (NotDetected) C. pneumoniae DNA (PCR) (NotDetected) Coronavirus OC43 (PCR) (NotDetected) Coronavirus HKU1 (PCR) (NotDetected) Coronavirus 229E (PCR) (NotDetected) SARS-CoV-2 (PCR) (NotDetected) Coronavirus NL63 (PCR) (NotDetected) Human Metapneumovir PCR (NotDetected) Influenza Type A (PCR) (NotDetected) Influenza Type B (PCR) (NotDetected) M. pneumoniae (PCR) (NotDetected) Parainfluenza 1 (PCR) (NotDetected) Parainfluenza 2 (PCR) (NotDetected) Parainfluenza 3 (PCR) (NotDetected) Parainfluenza 4 (PCR) (NotDetected) RSV (PCR) (NotDetected) Entero/Rhino (PCR) (NotDetected) Administered Medications Albuterol (Albut/Ipratrop 3mg/0.5mg Neb 3 Ml Vial) 3 ml NEB QIDR WENDY; Protocol Stop: 08/09/25 18:59 Last Admin: 07/10/25 20:06 Dose: 3 ml Documented By: tbm Cilostazol (Cilostazol 100 Mg Tab) 100 mg PO BID WENDY Stop: 08/09/25 20:59 Last Admin: 07/10/25 21:46 Dose: 100 mg Documented By: CR Insulin Aspart (Insulin Aspart Per Unit Charge) 0 units SC Q6 WENDY Stop: 08/09/25 17:59 Last Admin: 07/10/25 18:27 Dose: 9 units Documented By: ELDA Co-signed By: KIM Insulin Glargine (Lantus Per Unit Charge) 60 units SC BID WENDY Stop: 08/09/25 20:59 Last Admin: 07/10/25 21:46 Dose: 60 units Documented By: BROWN Co-signed By: SIDNEY Nortriptyline HCl (Nortriptyline Hcl 25 Mg Cap) 25 mg PO HS [facility] Stop: 08/09/25 20:59 Last Admin: 07/10/25 21:46 Dose: 25 mg Documented By: BROWN Discontinued Medications Albuterol (Albut/Ipratrop 3mg/0.5mg Neb 3 Ml Vial) 3 ml INH NOW STA Stop: 07/10/25 11:31 Last Admin: 07/10/25 11:51 Dose: 3 ml Documented By: CHRISTIANO Albuterol (Albut/Ipratrop 3mg/0.5mg Neb 3 Ml Vial) 3 ml NEB NOW STA; Protocol Stop: 07/10/25 12:29 Last Admin: 07/10/25 14:01 Dose: 3 ml Documented By: DONOVAN Furosemide (Furosemide 40 Mg/4 Ml Vial) 40 mg IV ONE STA Stop: 07/10/25 12:55 Last Admin: 07/10/25 13:22 Dose: 40 mg Documented By: CHRISTIANO Calcium Gluconate () 1,000 mg in 60 mls @ 240 mls/hr IV NOW STA Stop: 07/10/25 13:08 Last Infusion: 07/10/25 13:50 Dose: Infused Documented By: Admin: 07/10/25 13:18 Dose: 240 mls/hr Documented By: CHRISTIANO Insulin Human Regular 5 units/ (Syringe) 5 mls @ 30 mls/min IV NOW ONE Stop: 07/10/25 13:31 Last Admin: 07/10/25 14:21 Dose: 30 mls/min Documented By: PABLITO Co-signed By: DIANA Ioversol (Optiray 320 125ml) 120 ml IV ONCE ONE Stop: 07/10/25 13:01 Last Admin: 07/10/25 13:00 Dose: 120 ml Documented By: ELISABETH Methylprednisolone (Methylprednisolone 125 Mg/2 Ml Vial) 60 mg IV NOW STA Stop: 07/10/25 11:31 Last Admin: 07/10/25 11:51 Dose: 60 mg Documented By: CHRISTIANO Imaging Data Radiologist's Impression: Chest CTA 07/10/25 11:30 CT ANGIOGRAM OF THE CHEST CLINICAL HISTORY: Worsening shortness of breath COMPARISON STUDY: Chest CT dated 06/27/2025 TECHNIQUE: Following the IV administration of 120 cc of Optiray 320, CT angiogram of the chest was performed from the upper abdomen to the thoracic inlet utilizing the pulmonary embolus protocol. Images are reviewed in the axial, sagittal, and coronal planes. 3-D MIPS images are created and assessed. IV contrast was administered without complication. A dose lowering technique was utilized adhering to the principles of ALARA. CT DOSE: 1671.77 mGy.cm FINDINGS: The examination is limited from a technical standpoint due to respiratory motion artifact. There is upper abdominal ascites. The heart is enlarged. There are coronary artery calcifications. There is mild ectasia of the ascending thoracic aorta which measures 4 cm the level of the main pulmonary artery. There are no pulmonary filling Indicate acute pulmonary embolism however the study is limited due to significant respiratory motion artifact. There is redemonstration of a 1 cm calcified lesion at the origin left upper lobe bronchus resulting in secondary partial collapse of the left upper lobe. There is redemonstration of a 7 mm perifissural right middle lobe nodule There are no findings to indicate a pneumonia. There is suspected mild septal edema. There are no suspicious lytic or blastic skeletal lesions IMPRESSION: 1. Technically limited study secondary to respiratory motion artifact 2. No evidence of acute pulmonary embolism given the technical limitations of the study 3. Redemonstration of a 1 cm calcified endobronchial nodule at the origin the left upper lobe bronchus with secondary partial collapse the left upper lobe 4. Upper abdominal ascites ACT 112: Negative or not required by law. Electronically signed by: Adam Burdick M.D. 07/10/2025 1:18 PM Chest X-Ray 07/10/25 11:30 XR chest 1V portable CLINICAL HISTORY: Dyspnea. COMPARISON STUDY: Chest CT June 27, 2025. Chest radiograph June 30, 2025. FINDINGS: No pneumothorax or pleural effusion is present. Cardiomegaly is again noted. Mediastinal contours are stable. Left perihilar opacity is unchanged. Mild right basilar opacity is also unchanged. Probably vascular congestion is similar to prior exam. IMPRESSION: 1. No acute cardiopulmonary findings. No significant change in appearance of the chest. Cardiomegaly with pulmonary vascular congestion. 2. Left perihilar and right basilar opacities which favor atelectasis or scarring. ACT 112: Negative or not required by law. Electronically signed by: Thomas Saeed M.D. 07/10/2025 11:[address] 07/10/25 11:30 CT SCAN OF THE BRAIN WITHOUT IV CONTRAST CLINICAL HISTORY: Headaches. COMPARISON STUDY: None. TECHNIQUE: Unenhanced axial CT scan of the brain was performed from the vertex to the skull base. A dose lowering technique was utilized adhering to the principles of ALARA. FINDINGS: There is no acute intracranial hemorrhage, midline shift or mass effect. Ventricular system is unremarkable. Basal cisterns are patent. There are no extra-axial collections. White matter hypodensity suggests small vessel disease. 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 Mild atrophy is noted. No findings to suggest acute dural sinus thrombosis or acute territorial infarct. Small mucous retention cyst within the left maxillary sinus is incidentally noted. Trace fluid within the left mastoid air cells. No calvarial fractures. IMPRESSION: No acute intracranial findings. ACT 112: Negative or not required by law. Electronically signed by: Thomas Saeed M.D. 07/10/2025 1:17 PM Discharge Plan Visit Data Chief Complaint: Referred by Doctor Stated Complaint: REF BY DOC, HEADACHE, LUNG PROBLEMS ED Provider: Paul Nguyen Discharge Problem: Acute on chronic respiratory failure with hypoxia and hypercapnia, Acute exacerbation of chronic obstructive pulmonary disease, Acute exacerbation of CHF (congestive heart failure), Acute hyperkalemia Patient Disposition: Admitted As Inpatient Condition: Serious Discharge Instructions Interventions: ED Discharge Assessment Last Done: 07/10/25 16:13
[2025-07-10] MEDS: OPTIRAY 320 125ml IV ONE (13:00)
[2025-07-10] MEDS: CALCIUM GLUCONATE 1,000 MG/60 ML BAG IV STA (13:18)
--- NOTE | 2025-07-10 13:19 | CT Scan Report ---
CT SCAN OF THE BRAIN WITHOUT IV CONTRAST CLINICAL HISTORY: Headaches. COMPARISON STUDY: None. TECHNIQUE: Unenhanced axial CT scan of the brain was performed from the vertex to the skull base. A dose lowering technique was utilized adhering to the principles of ALARA. FINDINGS: There is no acute intracranial hemorrhage, midline shift or mass effect. Ventricular system is unremarkable. Basal cisterns are patent. There are no extra-axial collections. White matter hypod ensity suggests small vessel disease. There is an old 1.3 cm infarct within left cerebellar hemispher e. Mild atrophy is noted. No findings to suggest acute dural sinus thrombosis or acute territorial in farct. Small mucous retention cyst within the left maxillary sinus is incidentally noted. Trace fluid within the left mastoid air cells. No calvarial fractures. IMPRESSION: No acute intracranial findings. ACT 112: Negative or not required by law. Electronically signed by: Thomas Monte M.D. 07/10/2025 1:17 PM
--- NOTE | 2025-07-10 13:19 | CT Scan Report ---
CT ANGIOGRAM OF THE CHEST CLINICAL HISTORY: Worsening shortness of breath COMPARISON STUDY: Chest CT dated 06/27/2025 TECHNIQUE: Following the IV administration of 120 cc of Optiray 320, CT angiogram of the chest was pe rformed from the upper abdomen to the thoracic inlet utilizing the pulmonary embolus protocol. Images are reviewed in the axial, sagittal, and coronal planes. 3-D MIPS images are created and assessed. I V contrast was administered without complication. A dose lowering technique was utilized adhering to the principles of ALARA. CT DOSE: 1671.77 mGy.cm FINDINGS: The examination is limited from a technical standpoint due to respiratory motion artifact. There is upper abdominal ascites. The heart is enlarged. There are coronary artery calcifications. There is mild ectasia of the ascending thoracic aorta which measures 4 cm the level of the main pulmo nary artery. There are no pulmonary filling Indicate acute pulmonary embolism however the study is limited due to significant respiratory motion artifact. There is redemonstration of a 1 cm calcified lesion at the origin left upper lobe bronchus resulting in secondary partial collapse of the left upper lobe. There is redemonstration of a 7 mm perifissural right middle lobe nodule There are no findings to indicate a pneumonia. There is suspected mild septal edema. There are no suspicious lytic or blastic skeletal lesions IMPRESSION: 1. Technically limited study secondary to respiratory motion artifact 2. No evidence of acute pulmonary embolism given the technical limitations of the study 3. Redemonstration of a 1 cm calcified endobronchial nodule at the origin the left upper lobe bronchu s with secondary partial collapse the left upper lobe 4. Upper abdominal ascites ACT 112: Negative or not required by law. Electronically signed by: Adam Burdick M.D. 07/10/2025 1:18 PM
[2025-07-10] MEDS: FUROSEMIDE 40 MG/4 ML VIAL IV STA (13:22)
[2025-07-10 13:35] LABS: Chlamydia pneumoniae PCR Not Detected (NotDetected); Coronavirus 229E PCR Not Detected (NotDetected); Coronavirus CoV-2 (COVID19)PCR Not Detected (NotDetected); Coronavirus HKU1 PCR Not Detected (NotDetected); Coronavirus NL63 PCR Not Detected (NotDetected); Coronavirus OC43PCR Not Detected (NotDetected); Human Metapneumovirus PCR Not Detected (NotDetected); Parainfluenza Virus 1 PCR Not Detected (NotDetected); Parainfluenza Virus 2 PCR Not Detected (NotDetected); Parainfluenza Virus 3 PCR Not Detected (NotDetected); Parainfluenza Virus 4 PCR Not Detected (NotDetected); Respiratory Syncytial VirusPCR Not Detected (NotDetected); Rhinovirus/Enterovirus PCR Not Detected (NotDetected)
[2025-07-10] MEDS: ALBUT/IPRATROP 3MG/0.5MG NEB 3 ML VIAL NEB STA (14:01)
[2025-07-10] MEDS: INSULIN HUMAN REGULAR PER UNIT 5 UNITS in SYRINGE 4.95 ML IV ONE (14:21)
--- NOTE | 2025-07-10 14:27 | History & Physical Report ---
Date of Service July 10, 2025 Assessment & Plan (1) Acute on chronic respiratory failure with hypoxia and hypercapnia: (2) Acute on chronic heart failure with preserved ejection fraction (HFpEF): (3) Acute on chronic right-sided congestive heart failure: (4) COPD with emphysema: (5) Status post below knee amputation of right lower extremity: (6) Pulmonary hypertension: (7) Type 2 diabetes mellitus: (8) BETTE (obstructive sleep apnea): (9) Coronary artery disease: (10) Hypertension: (11) Acute hyperkalemia: (12) Acute kidney injury: (13) COPD (chronic obstructive pulmonary disease): Plan 70yo male with history of chronic hypoxic/hypercapnic respiratory failure on h ome O2 4 liters continuously, BETET on BIPAP, right-sided CHF, pulmonary HTN, right BKA status, COPD, T2DM, and HTN presents from home with his son due to worsening dyspnea. He was just hospitalized from 06/30 to 07/03 for a syncopal episode, MADDI, and minimally elevated troponin level. Patient reports that when he returned home he was more short of breath than his usual baseline, then about 2 days after the he had worsening abdominal swelling along with worsening shortness of breath. #acute/chronic hypoxic & hypercapnic respiratory failure - -suspect the main component of his presentation is decompensated CHF -can't rule out COPD exacerbation but less likely -in the ER received IV lasix 40mg x 1 with copious UOP and improved resp status -compliance with his normal med regimen is uncertain and symptoms worsened following the suggesting possible salt load -repeat VBG later in the afternoon today showed improved pH and improved pCO2 -can remove BIPAP now, and revert back to usage with sleep/naps -cont diuresis -cont NC O2 to maintain O2 sats 88-92% #acute/chronic HFpEF with known right-sided CHF - -10/2024 echo with preserved LV EF but severe right-sided RV dysfunction with pulm HTN -abd swelling, ascites seen on imaging, etc all c/w right-sided CHF -s/p lasix IV in the ER with excellent response to such -typically takes lasix 40mg BID at home -likely to need ongoing IV diuretics for at least a few more days #acute hyperkalemia - -2nd to lisinopril usage in the setting of recent MADDI -s/p IV calcium and IV insulin in ER -s/p IV lasix -following the above his K was improved in the late afternoon --> essentially at a normal level -BMP am -hold lisinopril #recent MADDI - -Cr ~2 during recent hospitalization -upon presentation today was 1.4 -repeat Cr later in the day today even better - now 1.2 -BMP am tomorrow #BETTE - -BIPAP with sleep/naps #pulm HTN - -presumed 2nd to COPD -NC O2 #COPD - -s/p IV steroids in ER today -I am not certain if he truly is in COPD exacerbation -suspect decompensated CHF is the main culprit -cont home inhalers -place on scheduled duonebs -defer on additional IV steroids for now #uncontrolled T2DM - -a1c 10.8% during 06/2025 hospital stay -suspect noncompliance with both diet & meds -hold all PO agents -hold Mounjaro -lantus BID -novolog SSI -BSGs ac/hs #HTN - -cont all BP meds except for lisinopril due to hyperkalemia #CAD - -per records had R/L heart cath at [facility] in 2019 showing non-occlusive CAD and mod pulm HTN -remains on asa, plavix, statin #PAD - -12/2023 had ischemic R foot -12/2024 - had arteriogram showing occlusion of distal SFA along with a right popliteal stent with very distal reconstitution of the PT with no foot outflow -attempts at thrombectomy of the SFA & popliteal occlusions unsuccessful -this ultimately led to right BKA -cont statin -cont asa/plavix -cont pletal #DVT proph - -add heparin or lovenox starting tomorrow son updated at bedside during the admission History of Present Illness Chief Complaint: worsening dyspnea, worsening abdominal swelling/bloating Primary Care Provider: Mckenna Fernando PA-C 70yo male with history of chronic hypoxic/hypercapnic respiratory failure on home O2 4 liters continuously, BETTE on BIPAP, right-sided CHF, pulmonary HTN, right BKA status, COPD, T2DM, and HTN presents from home with his son due to worsening dyspnea. He was just hospitalized from 06/30 to 07/03 for a syncopal episode, MADDI, and minimally elevated troponin level. Patient reports that when he returned home he was more short of breath than his usual baseline, then about 2 days after the he had worsening abdominal swelling along with worsening shortness of breath. He reports compliance with his NC O2, BIPAP, as well as diuretics. Denies any fever. Has been eating normally. During my admission assessment he was on BIPAP and it was difficult to understand him through the mask. Multiple times he reported having to void and ultimately could not do so. A franco was placed, and soon after had 1000cc+ of urine output s/p IV lasix in the ER. Allergies Allergy/AdvReac Type Severity Reaction Status Date / Time empagliflozin Allergy Intermediate Nausea, Verified 05/31/25 10:02 [From Jardiance] Dizziness nitroglycerin AdvReac Intermediate Unknown - Unverified 05/31/25 10:02 Was just told to not take it as precaution Home Medications Medication Instructions Recorded Confirmed Type aspirin 81 mg chewable tablet 81 mg PO DAILY 08/07/24 07/10/25 History (Children's Aspirin) cilostazol 100 mg tablet 0 mg PO BID 08/07/24 07/10/25 History clopidogrel 75 mg tablet 75 mg PO DAILY 08/07/24 07/10/25 History furosemide 40 mg tablet 0 mg PO BID 08/07/24 07/10/25 History glipizide 5 mg tablet 0 mg PO BID 08/07/24 07/10/25 History insulin glargine 100 unit/mL (3 60 unit subcut BID 08/07/24 07/10/25 History mL) subcutaneous pen (Lantus Solostar U-100 Insulin) lisinopril 30 mg tablet 30 mg PO DAILY 08/07/24 07/10/25 History metformin 1,000 mg tablet 1,000 mg PO BID 08/07/24 07/10/25 History metoprolol succinate 50 mg 50 mg PO DAILY 08/07/24 07/10/25 History tablet,extended release 24 hr nortriptyline 25 mg capsule 25 mg PO HS 08/07/24 07/10/25 History omeprazole 40 mg capsule,delayed 40 mg PO DAILY 08/07/24 07/10/25 History release rosuvastatin 10 mg tablet 0 mg PO DAILY 08/07/24 07/10/25 History tiotropium 2.5 mcg-olodaterol 2.5 0 puff inhalation DAILY 06/27/25 07/10/25 History mcg/actuation mist for inhalation (Stiolto Respimat) tirzepatide 2.5 mg/0.5 mL 2.5 mg subcut UD 06/27/25 07/10/25 History subcutaneous pen injector (Mounjaro) Past Med/Surg History Problem List (Updated 07/11/25 @ 04:17 by Merrick Ariza MD) Acute hyperkalemia (Acute) Acute exacerbation of CHF (congestive heart failure) (Acute) Acute exacerbation of chronic obstructive pulmonary disease (Acute) Acute on chronic respiratory failure with hypoxia and hypercapnia (Acute) Acute on chronic right-sided congestive heart failure Acute on chronic heart failure with preserved ejection fraction (HFpEF) Acute on chronic respiratory failure with hypoxia and hypercapnia Cough (Acute) Hypomagnesemia (Acute) Acute dyspnea (Acute) COPD with emphysema Constipation Status post below knee amputation of right lower extremity Hypoxia (Acute) Elevated brain natriuretic peptide (BNP) level (Acute) Hypomagnesemia (Acute) Acute dyspnea (Acute) RLL pneumonia (Acute) Weight gain (Acute) CHF (congestive heart failure) (Acute) Acute kidney injury COPD exacerbation Acute on chronic respiratory failure with hypoxia Pulmonary edema (Acute) Chronic hypoxemic respiratory failure (Acute) (HFpEF) heart failure with preserved ejection fraction Pulmonary nodule S/P below knee amputation Endotracheally intubated RVF (right ventricular failure) Acute and chronic respiratory failure Pressure ulcer of right foot, unstageable Ischemic foot CHF (congestive heart failure) Acute hyperglycemia (Acute) Acute hyponatremia (Acute) Cellulitis of foot, right (Acute) DVT prophylaxis Coronary artery disease (Acute) Abnormal pulmonary finding Abnormal chest CT Acute respiratory failure with hypoxia Pneumonia Hypoxia (Acute) Mucus plugging of bronchi (Acute) Medical History (Updated 07/11/25 @ 04:17 by Merrick Ariza MD) Hypertension Type 2 diabetes mellitus BETTE (obstructive sleep apnea) CKD (chronic kidney disease) stage 2, GFR 60-89 ml/min Occlusion of right popliteal artery PAD (peripheral artery disease) COPD (chronic obstructive pulmonary disease) Ex-smoker Pulmonary hypertension Chronic respiratory failure with hypoxia and hypercapnia Syncope and collapse Right-sided congestive heart failure Mild CAD Basilar artery occlusion Pneumonia involving right lung Chest pain Chronic respiratory failure Gangrene due to arterial insufficiency Septic shock Hyperlipidemia Surgical History (Updated 07/11/25 @ 04:17 by Merrick Ariza MD) History of right below knee amputation Family History (Updated 07/11/25 @ 04:18 by Merrick Ariza MD) Mother Myocardial infarction Stroke Social History (Updated 07/11/25 @ 04:21 by Merrick Ariza MD) Smoking Status: Former smoker Tobacco Type: Cigarettes Age Quit Using Tobacco: 40; Cigarettes Per Day: na; Second Hand Exposure: Yes; Do You Dip or Chew Tobacco: No; Hx Alcohol Use: Yes Alcohol type: beer Alcohol Intake Frequency Comment: stopped sometime in the distant past Hx Substance Use: No Preferred Language: Georgian Communication Ability: Effective Restrike Hammer Operator Required: No Beliefs That Will Affect Care: None marital status: marital status details: previously twice Current Living Situation: Family Current Living Situation Comment: with son and daughter kim current occupational status: 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 How many Children do You have: 2 other: lives in [place] Feels Safe at Home: Yes Assistive Devices: Oxygen - Continuous and Wheelchair Review of Systems Review of Systems: gen - no fevers or chills; eating well; uncertain about weight gain eyes - no ocular changes or issues HENT - no URI symptoms, no dysphagia CV - no chest pain, mild edema of LLE pulm - dyspnea at rest today; dyspnea on exertion for several days, cough/wheeze GI - abd swelling but no nausea/emesis, moving bowels, no blood in stool; no abd pain - no dysuria neuro - frontal headaches for a few days last week, now improved; no focal motor weakness skin - no rash endo - diabetic with uncontrolled BSGs psych - no confusion Physical Exam Physical Exam: gen - lying in bed, gets dyspneic with trying to move around, BIPAP in place, difficult to understand his speech thru the BIPAP mask skin - no rash eyes - PERRL HENT - MMM, no lesions neck - no obvious JVD, no lymph nodes heart - tones are distant, RRR, s1, s2 is widely split (vs. s2 with s3), no obv ious murmur lungs - faint b/l rales bases, end-exp wheezes b/l, mild tachypnea with moving in bed abd - VERY distended, BS+, NT, no HSM ext - right BKA; left leg <1+ edema vascular - pulses left foot 1+ at best psych - a/o x 3 neuro - no asterixis; strength 5/5 x 4 exts Results & Data Results & Data Vital Signs (Past 12 Hours) Vital Signs Temp Pulse Pulse Resp BP BP Pulse Ox 07/10/25 14:01 93 H 14 97 07/10/25 13:30 87 12 132/92 96 07/10/25 13:04 90 15 L 07/10/25 13:00 93 H 142/87 H 91 07/10/25 12:30 85 19 119/81 94 07/10/25 11:49 85 07/10/25 11:43 87 16 96 07/10/25 11:43 87 15 126/97 95 07/10/25 11:14 36.8 C 91 H 22 126/79 94 O2 Del Method O2 Flow Rate FiO2 07/10/25 14:01 BiPAP 40 07/10/25 13:30 BiPAP 07/10/25 13:04 40 07/10/25 13:00 BiPAP 07/10/25 12:30 Nasal Cannula 3 07/10/25 11:49 07/10/25 11:43 Nasal Cannula 3 07/10/25 11:43 Nasal Cannula 3 07/10/25 11:14 Nasal Cannula 3 Laboratory Results Laboratory Results - last 24 hr 07/10/25 07/10/25 07/10/25 11:30 11:50 14:16 WBC 9.93 RBC 4.56 L Hgb 10.9 L Hct 38.1 L MCV 83.6 MCH 23.9 L MCHC 28.6 L RDW Std Deviation 51.3 H RDW Coeff of Larry 17.0 H Plt Count 250 MPV 12.3 Immature Gran % (Auto) 0.5 Neut % (Auto) 72.4 Lymph % (Auto) 12.6 [place] % (Auto) 7.9 Eos % (Auto) 5.7 Baso % (Auto) 0.9 Neut # (Auto) 7.19 H Lymph # (Auto) 1.25 [place] # (Auto) 0.78 H Eos # (Auto) 0.57 H Baso # (Auto) 0.09 Immature Gran # (Auto) 0.05 VBG pH 7.29 L VBG pCO2 61 H VBG pO2 42 VBG HCO3 29 VBG O2 Saturation 62.1 VBG Base Excess 1.2 Sodium 136 Potassium 5.5 H Chloride 99 Carbon Dioxide 31 Anion Gap 6 BUN 27 H Creatinine 1.44 H Est Cr Clr Drug Dosing 59.2 eGFR 52.27 BUN/Creatinine Ratio 18.8 Glucose 319 H* POC Glucose 256 H Calcium 9.8 Magnesium 1.7 Total Bilirubin 0.5 AST 13 ALT 9 Alkaline Phosphatase 136 H Ammonia Troponin I High Sens 16.4 B-Natriuretic Peptide 147 H Total Protein 7.2 Albumin 4.0 Globulin 3.2 Albumin/Globulin Ratio 1.3 Procalcitonin 0.03 Urine Color Urine Appearance Urine pH Ur Specific [place] Urine Protein Urine Glucose (UA) Urine Ketones Urine Blood Urine Nitrite Urine Bilirubin Urine Urobilinogen Ur Leukocyte Esterase Adenovirus (PCR) Not Detected B. pertussis DNA (PCR) Not Detected B.parapertussis DNA PCR Not Detected C. pneumoniae DNA (PCR) Not Detected Coronavirus OC43 (PCR) Not Detected Coronavirus HKU1 (PCR) Not Detected Coronavirus 229E (PCR) Not Detected SARS-CoV-2 (PCR) Not Detected Coronavirus NL63 (PCR) Not Detected Human Metapneumovir PCR Not Detected Influenza Type A (PCR) Not Detected Influenza Type B (PCR) Not Detected M. pneumoniae (PCR) Not Detected Parainfluenza 1 (PCR) Not Detected Parainfluenza 2 (PCR) Not Detected Parainfluenza 3 (PCR) Not Detected Parainfluenza 4 (PCR) Not Detected RSV (PCR) Not Detected Entero/Rhino (PCR) Not Detected 07/10/25 07/10/25 07/10/25 14:52 16:05 17:01 WBC RBC Hgb Hct MCV MCH MCHC RDW Std Deviation RDW Coeff of Larry Plt Count MPV Immature Gran % (Auto) Neut % (Auto) Lymph % (Auto) [place] % (Auto) Eos % (Auto) Baso % (Auto) Neut # (Auto) Lymph # (Auto) [place] # (Auto) Eos # (Auto) Baso # (Auto) Immature Gran # (Auto) VBG pH VBG pCO2 VBG pO2 VBG HCO3 VBG O2 Saturation VBG Base Excess Sodium Potassium Chloride Carbon Dioxide Anion Gap BUN Creatinine Est Cr Clr Drug Dosing eGFR BUN/Creatinine Ratio Glucose POC Glucose 224 H 290 H Calcium Magnesium Total Bilirubin AST ALT Alkaline Phosphatase Ammonia Troponin I High Sens B-Natriuretic Peptide Total Protein Albumin Globulin Albumin/Globulin Ratio Procalcitonin Urine Color Yellow Urine Appearance Clear Urine pH 5.5 Ur Specific [place] 1.015 Urine Protein Negative Urine Glucose (UA) 3+ H Urine Ketones Negative Urine Blood Negative Urine Nitrite Negative Urine Bilirubin Negative Urine Urobilinogen Negative Ur Leukocyte Esterase Negative Adenovirus (PCR) B. pertussis DNA (PCR) B.parapertussis DNA PCR C. pneumoniae DNA (PCR) Coronavirus OC43 (PCR) Coronavirus HKU1 (PCR) Coronavirus 229E (PCR) SARS-CoV-2 (PCR) Coronavirus NL63 (PCR) Human Metapneumovir PCR Influenza Type A (PCR) Influenza Type B (PCR) M. pneumoniae (PCR) Parainfluenza 1 (PCR) Parainfluenza 2 (PCR) Parainfluenza 3 (PCR) Parainfluenza 4 (PCR) RSV (PCR) Entero/Rhino (PCR) 07/10/25 17:15 WBC RBC Hgb Hct MCV MCH MCHC RDW Std Deviation RDW Coeff of Larry Plt Count MPV Immature Gran % (Auto) Neut % (Auto) Lymph % (Auto) [place] % (Auto) Eos % (Auto) Baso % (Auto) Neut # (Auto) Lymph # (Auto) [place] # (Auto) Eos # (Auto) Baso # (Auto) Immature Gran # (Auto) VBG pH 7.37 VBG pCO2 55 H VBG pO2 47 VBG HCO3 32 VBG O2 Saturation 79.5 VBG Base Excess 5.0 Sodium 137 Potassium 5.1 Chloride 99 Carbon Dioxide 31 Anion Gap 7 BUN 27 H Creatinine 1.29 Est Cr Clr Drug Dosing 66.1 eGFR 59.65 BUN/Creatinine Ratio 20.9 H Glucose 270 H POC Glucose Calcium 9.5 Magnesium Total Bilirubin AST ALT Alkaline Phosphatase Ammonia 32.0 Troponin I High Sens B-Natriuretic Peptide Total Protein Albumin Globulin Albumin/Globulin Ratio Procalcitonin Urine Color Urine Appearance Urine pH Ur Specific [place] Urine Protein Urine Glucose (UA) Urine Ketones Urine Blood Urine Nitrite Urine Bilirubin Urine Urobilinogen Ur Leukocyte Esterase Adenovirus (PCR) B. pertussis DNA (PCR) B.parapertussis DNA PCR C. pneumoniae DNA (PCR) Coronavirus OC43 (PCR) Coronavirus HKU1 (PCR) Coronavirus 229E (PCR) SARS-CoV-2 (PCR) Coronavirus NL63 (PCR) Human Metapneumovir PCR Influenza Type A (PCR) Influenza Type B (PCR) M. pneumoniae (PCR) Parainfluenza 1 (PCR) Parainfluenza 2 (PCR) Parainfluenza 3 (PCR) Parainfluenza 4 (PCR) RSV (PCR) Entero/Rhino (PCR) Diagnostic Findings Chest CTA 07/10/25 11:30 CT ANGIOGRAM OF THE CHEST CLINICAL HISTORY: Worsening shortness of breath COMPARISON STUDY: Chest CT dated 06/27/2025 TECHNIQUE: Following the IV administration of 120 cc of Optiray 320, CT angiogram of the chest was performed from the upper abdomen to the thoracic inlet utilizing the pulmonary embolus protocol. Images are reviewed in the axial, sagittal, and coronal planes. 3-D MIPS images are created and assessed. IV contrast was administered without complication. A dose lowering technique was utilized adhering to the principles of ALARA. CT DOSE: 1671.77 mGy.cm FINDINGS: The examination is limited from a technical standpoint due to respiratory motion artifact. There is upper abdominal ascites. The heart is enlarged. There are coronary artery calcifications. There is mild ectasia of the ascending thoracic aorta which measures 4 cm the level of the main pulmonary artery. There are no pulmonary filling Indicate acute pulmonary embolism however the study is limited due to significant respiratory motion artifact. There is redemonstration of a 1 cm calcified lesion at the origin left upper lobe bronchus resulting in secondary partial collapse of the left upper lobe. There is redemonstration of a 7 mm perifissural right middle lobe nodule There are no findings to indicate a pneumonia. There is suspected mild septal edema. There are no suspicious lytic or blastic skeletal lesions IMPRESSION: 1. Technically limited study secondary to respiratory motion artifact 2. No evidence of acute pulmonary embolism given the technical limitations of the study 3. Redemonstration of a 1 cm calcified endobronchial nodule at the origin the left upper lobe bronchus with secondary partial collapse the left upper lobe 4. Upper abdominal ascites ACT 112: Negative or not required by law. Electronically signed by: Adam Burdick M.D. 07/10/2025 1:18 PM Chest X-Ray 07/10/25 11:30 XR chest 1V portable CLINICAL HISTORY: Dyspnea. COMPARISON STUDY: Chest CT June 27, 2025. Chest radiograph June 30, 2025. FINDINGS: No pneumothorax or pleural effusion is present. Cardiomegaly is again noted. Mediastinal contours are stable. Left perihilar opacity is unchanged. Mild right basilar opacity is also unchanged. Probably vascular congestion is similar to prior exam. IMPRESSION: 1. No acute cardiopulmonary findings. No significant change in appearance of the chest. Cardiomegaly with pulmonary vascular congestion. 2. Left perihilar and right basilar opacities which favor atelectasis or scarring. ACT 112: Negative or not required by law. Electronically signed by: Thomas Monte M.D. 07/10/2025 11:[address] 07/10/25 11:30 CT SCAN OF THE BRAIN WITHOUT IV CONTRAST CLINICAL HISTORY: Headaches. COMPARISON STUDY: None. TECHNIQUE: Unenhanced axial CT scan of the brain was performed from the vertex to the skull base. A dose lowering technique was utilized adhering to the principles of ALARA. FINDINGS: There is no acute intracranial hemorrhage, midline shift or mass effect. Ventricular system is unremarkable. Basal cisterns are patent. There are no extra-axial collections. White matter hypodensity suggests small vessel disease. 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 Mild atrophy is noted. No findings to suggest acute dural sinus thrombosis or acute territorial infarct. Small mucous retention cyst within the left maxillary sinus is incidentally noted. Trace fluid within the left mastoid air cells. No calvarial fractures. IMPRESSION: No acute intracranial findings. ACT 112: Negative or not required by law. Electronically signed by: Thomas Monte M.D. 07/10/2025 1:17 PM ECG Additional Comments: EKG - my read - NSR, RBBB, first degree AV block, no acute ST changes PG Care Time/CCT Total # of Minutes Spent Total Time Spent with Patient: Total time spent is greater than 50% in coordination of care (as documented) at patient's floor/unit and/or counseling patient: Coding Level of Care Code 66349 INT INP/OBS CARE 3/75MIN Diagnoses Acute on chronic respiratory failure with hypoxia and hypercapnia J96.21; J9 6.22 Acute on chronic heart failure with preserved ejection fraction (HFpEF) I50.33 Acute on chronic right-sided congestive heart failure I50.813 COPD with emphysema J43.9 Status post below knee amputation of right lower extremity Z89.511 Pulmonary hypertension I27.20 Type 2 diabetes mellitus with diabetic peripheral angiopathy and gangrene, with long-term current use of insulin E11.52; Z79.4 Diabetes mellitus complication status: with circulatory complication Diabetes mellitus terminal block assembler insulin use: with terminal block assembler use BETTE (obstructive sleep apnea) G47.33 Coronary artery disease I25.10 Primary hypertension I10 Hypertension type: primary hypertension Acute hyperkalemia E87.5 Acute kidney injury N17.9 COPD (chronic obstructive pulmonary disease) J44.9 (7) Type 2 diabetes mellitus Diabetes mellitus complication status: with circulatory complication Diabetes mellitus terminal block assembler insulin use: with terminal block assembler use Qualified Code(s): E11.52 - Type 2 diabetes mellitus with diabetic peripheral angiopathy with gangrene; Z79.4 - watermelon inspector (current) use of insulin (10) Hypertension Hypertension type: primary hypertension Qualified Code(s): I10 - Essential (primary) hypertension
--- NOTE | 2025-07-10 14:41 | Electrocardiogram Report ---
Test Reason : Blood Pressure : */* mmHG Vent. Rate : 95 BPM Atrial Rate : 95 BPM P-R Int : 228 ms QRS Dur : 164 ms QT Int : 396 ms P-R-T Axes : 54 92 -22 degrees QTcB Int : 497 ms Sinus rhythm with sinus arrhythmia with 1st degree A-V block Right bundle branch block Abnormal ECG When compared with ECG of 10-Jul-2025 11:24, Premature ventricular complexes are no longer Present Criteria for Anteroseptal infarct are no longer Present Confirmed by Ivan Chi ([id number]) on 07/10/2025 2:41:43 PM Referred By: NO PCP Confirmed By: Ivan Chi
[2025-07-10 16:19] LABS: Appearance Urine Clear (Clear); Glucose Urine UA 3+ (Negative)
[2025-07-10] MEDS ORDERED: MELATONIN 3 MG TAB PO PRN (17:06)
[2025-07-10] MEDS ORDERED: ACETAMINOPHEN 325 MG TAB PO PRN (17:06)
[2025-07-10] MEDS ORDERED: ONDANSETRON INJ 2 MG/ML 2 ML VIAL IV PRN (17:06)
[2025-07-10 17:35] LABS: Base Excess VBG 5.0 mEq/L; HCO3 VBG 32 mmol/L; Oxygen Saturation VBG 79.5 %; PCO2 VBG 55 mmHg (38-50); PO2 VBG 47 mmHg; pH VBG 7.37 (7.36-7.41)
[2025-07-10 17:55] LABS: Anion Gap 7.0 (3-11); Blood Urea Nitrogen 27.0 mg/dl (6-23); Calcium 9.5 mg/dl (8.6-10.3); Carbon Dioxide 31.0 mmol/L (21-32); Chloride 99.0 mmol/L (98-107); Creatinine Clr Calc Pharmacy 66.1 ml/min; Glucose 270.0 mg/dl (70-99(Fasting)); Potassium 5.1 mmol/L (3.5-5.1); Sodium 137.0 mmol/L (136-145)
[2025-07-10] MEDS: INSULIN ASPART PER UNIT CHARGE SC SCH (18:27)
[2025-07-10] MEDS: ALBUT/IPRATROP 3MG/0.5MG NEB 3 ML VIAL NEB SCH (20:06)
[2025-07-10] MEDS: NORTRIPTYLINE HCL 25 MG CAP PO SCH (21:46)
[2025-07-10] MEDS: LANTUS PER UNIT CHARGE SC SCH (21:46)
[2025-07-11 06:56] LABS: Anion Gap 7.0 (3-11); Blood Urea Nitrogen 30.0 mg/dl (6-23); Calcium 9.6 mg/dl (8.6-10.3); Carbon Dioxide 31.0 mmol/L (21-32); Chloride 98.0 mmol/L (98-107); Creatinine Clr Calc Pharmacy 65.1 ml/min; Glucose 224.0 mg/dl (70-99(Fasting)); Magnesium 1.6 mg/dl (1.7-2.4); Potassium 5.4 mmol/L (3.5-5.1); Sodium 136.0 mmol/L (136-145)
[2025-07-11] MEDS ORDERED: Nursing to Pharmacy Communication SCH (08:15)
[2025-07-11] MEDS: INSULIN ASPART PER UNIT CHARGE SC SCH ×2 (08:58→13:13)
[2025-07-11] MEDS: METOPROLOL SUCC 50MG EXT REL TAB PO SCH (09:02)
[2025-07-11] MEDS: ASPIRIN 81 MG ECTAB PO SCH (09:02)
[2025-07-11] MEDS: UMECLIDINIUM/VILANTEROL 62.5/25MCG 7 PUFFS/INHALER INH SCH (09:02)
[2025-07-11] MEDS: CLOPIDOGREL BISULFATE 75 MG TAB PO SCH (09:02)
[2025-07-11] MEDS: ROSUVASTATIN CALCIUM 10 MG TAB PO SCH (09:02)
[2025-07-11] MEDS: FUROSEMIDE 40 MG/4 ML VIAL IV ONE (11:59)
[2025-07-11] MEDS: SODIUM ZIRCONIUM CYCLOSILICATE 10 GM PACKET PO ONE (12:00)
[2025-07-11] MEDS: MAGNESIUM SULFATE / D5W 1 GM/100 ML BAG IV SCH (12:05)
--- NOTE | 2025-07-11 13:47 | Hospitalist Progress Note ---
Date of Service July 11, 2025 Assessment & Plan (1) Acute on chronic respiratory failure with hypoxia and hypercapnia: (2) Acute on chronic heart failure with preserved ejection fraction (HFpEF): (3) Acute on chronic right-sided congestive heart failure: (4) COPD with emphysema: (5) Status post below knee amputation of right lower extremity: (6) Pulmonary hypertension: (7) Type 2 diabetes mellitus: (8) BETTE (obstructive sleep apnea): (9) Coronary artery disease: (10) Hypertension: (11) Acute hyperkalemia: (12) Acute kidney injury: (13) COPD (chronic obstructive pulmonary disease): Plan 70yo male with history of chronic hypoxic/hypercapnic respiratory failure on h ome O2 4 liters continuously, BETTE on BIPAP, right-sided CHF, pulmonary HTN, right BKA status, COPD, T2DM, and HTN presents from home with his son due to worsening dyspnea. He was just hospitalized from 06/30 to 07/03 for a syncopal episode, MADDI, and minimally elevated troponin level. Patient reports that when he returned home he was more short of breath than his usual baseline, then about 2 days after the he had worsening abdominal swelling along with worsening shortness of breath. #acute/chronic hypoxic & hypercapnic respiratory failure - -2nd decompensated CHF - MUCH improved today -COPD exacerbation unlikely -cont IV diuresis -compliance with his normal med regimen is uncertain and symptoms worsened following the suggesting possible salt load -cont BIPAP HS, and NC O2 otherwise -cont NC O2 to maintain O2 sats 88-92% #acute/chronic HFpEF with known right-sided CHF - -10/2024 echo with preserved LV EF but severe right-sided RV dysfunction with pulm HTN -abd swelling, ascites seen on imaging, etc all c/w right-sided CHF -s/p lasix IV in the ER with excellent response to such -typically takes lasix 40mg BID at home -cont lasix 40mg IV daily - having 2+ liters of net negative results with such thus far #acute hyperkalemia - -2nd to lisinopril usage in the setting of recent MADDI -s/p IV calcium and IV insulin in ER -s/p IV lasix -K improved but still top-normal -give lokelma today -BMP am -cont to hold lisinopril #recent MADDI - -Cr ~2 during recent hospitalization -Cr today 1.2 -BMP am #BETTE - -BIPAP with sleep/naps #pulm HTN - -presumed 2nd to COPD -NC O2 #COPD - -s/p IV steroids in ER yesterday but I don't feel he has COPD flare; suspect current pulmonary symptoms was due to decompensated CHF -cont home inhalers -cont duonebs -defer on additional IV steroids #uncontrolled T2DM - -a1c 10.8% during 06/2025 hospital stay -suspect noncompliance with both diet & meds -hold all PO agents -hold Mounjaro -lantus BID -novolog SSI -BSGs ac/hs #HTN - -cont all BP meds except for lisinopril due to hyperkalemia and recent MADDI #CAD - -per records had R/L heart cath at [facility] in 2019 showing non-occlusive CAD and mod pulm HTN -remains on asa, plavix, statin #PAD - -12/2023 had ischemic R foot -12/2024 - had arteriogram showing occlusion of distal SFA along with a right popliteal stent with very distal reconstitution of the PT with no foot outflow -attempts at thrombectomy of the SFA & popliteal occlusions unsuccessful -this ultimately led to right BKA -cont statin -cont asa/plavix -cont pletal #DVT proph - -add lovenox daily will need PT/OT evals Admission and Anticipated Discharge Date Admission Date: July 10, 2025 Subjective breathing much improved today eating well denies pain in any location no new complaints from admission he asks "what do I do to keep the fluid off?" Review of Systems Review of Systems: CV - no chest pain, no orthopnea pulm - dyspnea resolved GI - no abd pain Physical Exam Physical Exam: gen - lying in bed comfortably, NAD HENT - MMM, no lesions neck - no obvious JVD heart - tones are distant, RRR, s1, s2 is widely split (vs. s2 with s3), no obvious murmur lungs - faint b/l rales bases, resolved wheezes, increased work of breathing resolved abd - distension mildly improved, BS+, NT, no HSM ext - right BKA; left leg trace edema vascular - pulses left foot 1+ at best Results & Data Results & Data Vital Signs (Past 12 Hours) Vital Signs Temp Pulse Pulse Resp BP Pulse Ox O2 Del Method 07/11/25 11:23 102 H 15 94 07/11/25 11:23 102 H 15 94 BiPAP 07/11/25 11:19 36.3 C L 94 H 22 162/85 H 92 BiPAP 07/11/25 08:00 Nasal Cannula 07/11/25 07:26 36.9 C 99 H 20 143/88 H 94 Nasal Cannula 07/11/25 07:21 100 H 18 96 Nasal Cannula 07/11/25 02:55 36.9 C 92 H 17 123/82 90 Nasal Cannula O2 Flow Rate FiO2 07/11/25 11:23 40 07/11/25 11:23 40 07/11/25 11:19 07/11/25 08:00 4 07/11/25 07:26 4 07/11/25 07:21 4 07/11/25 02:55 4 Laboratory Results Laboratory Results - last 24 hr 07/10/25 07/10/25 07/10/25 14:16 14:52 16:05 VBG pH VBG pCO2 VBG pO2 VBG HCO3 VBG O2 Saturation VBG Base Excess Sodium Potassium Chloride Carbon Dioxide Anion Gap BUN Creatinine Est Cr Clr Drug Dosing eGFR BUN/Creatinine Ratio Glucose POC Glucose 256 H 224 H Calcium Magnesium Ammonia Urine Color Yellow Urine Appearance Clear Urine pH 5.5 Ur Specific [place] 1.015 Urine Protein Negative Urine Glucose (UA) 3+ H Urine Ketones Negative Urine Blood Negative Urine Nitrite Negative Urine Bilirubin Negative Urine Urobilinogen Negative Ur Leukocyte Esterase Negative 07/10/25 07/10/25 07/10/25 17:01 17:15 20:23 VBG pH 7.37 VBG pCO2 55 H VBG pO2 47 VBG HCO3 32 VBG O2 Saturation 79.5 VBG Base Excess 5.0 Sodium 137 Potassium 5.1 Chloride 99 Carbon Dioxide 31 Anion Gap 7 BUN 27 H Creatinine 1.29 Est Cr Clr Drug Dosing 66.1 eGFR 59.65 BUN/Creatinine Ratio 20.9 H Glucose 270 H POC Glucose 290 H 321 H* Calcium 9.5 Magnesium Ammonia 32.0 Urine Color Urine Appearance Urine pH Ur Specific [place] Urine Protein Urine Glucose (UA) Urine Ketones Urine Blood Urine Nitrite Urine Bilirubin Urine Urobilinogen Ur Leukocyte Esterase 07/10/25 07/10/25 07/10/25 20:26 21:03 23:48 VBG pH VBG pCO2 VBG pO2 VBG HCO3 VBG O2 Saturation VBG Base Excess Sodium Potassium Chloride Carbon Dioxide Anion Gap BUN Creatinine Est Cr Clr Drug Dosing eGFR BUN/Creatinine Ratio Glucose 298 H POC Glucose 332 H* 249 H Calcium Magnesium Ammonia Urine Color Urine Appearance Urine pH Ur Specific [place] Urine Protein Urine Glucose (UA) Urine Ketones Urine Blood Urine Nitrite Urine Bilirubin Urine Urobilinogen Ur Leukocyte Esterase 07/11/25 07/11/25 07/11/25 05:42 06:07 07:38 VBG pH VBG pCO2 VBG pO2 VBG HCO3 VBG O2 Saturation VBG Base Excess Sodium 136 Potassium 5.4 H Chloride 98 Carbon Dioxide 31 Anion Gap 7 BUN 30 H Creatinine 1.29 Est Cr Clr Drug Dosing 65.1 eGFR 59.65 BUN/Creatinine Ratio 23.3 H Glucose 224 H POC Glucose 225 H 204 H Calcium 9.6 Magnesium 1.6 L Ammonia Urine Color Urine Appearance Urine pH Ur Specific [place] Urine Protein Urine Glucose (UA) Urine Ketones Urine Blood Urine Nitrite Urine Bilirubin Urine Urobilinogen Ur Leukocyte Esterase 07/11/25 11:43 VBG pH VBG pCO2 VBG pO2 VBG HCO3 VBG O2 Saturation VBG Base Excess Sodium Potassium Chloride Carbon Dioxide Anion Gap BUN Creatinine Est Cr Clr Drug Dosing eGFR BUN/Creatinine Ratio Glucose POC Glucose 207 H Calcium Magnesium Ammonia Urine Color Urine Appearance Urine pH Ur Specific [place] Urine Protein Urine Glucose (UA) Urine Ketones Urine Blood Urine Nitrite Urine Bilirubin Urine Urobilinogen Ur Leukocyte Esterase PG Care Time/CCT Total # of Minutes Spent Total Time Spent with Patient: Total time spent is greater than 50% in coordination of care (as documented) at patient's floor/unit and/or counseling patient: Coding Level of Care Code 97051 SUB INP/OBS CARE 3/50MIN Diagnoses Acute on chronic respiratory failure with hypoxia and hypercapnia J96.21; J96.22 Acute on chronic heart failure with preserved ejection fraction (HFpEF) I50.33 Acute on chronic right-sided congestive heart failure I50.813 COPD with emphysema J43.9 Status post below knee amputation of right lower extremity Z89.511 Pulmonary hypertension I27.20 Type 2 diabetes mellitus with diabetic peripheral angiopathy and gangrene, with long-term current use of insulin E11.52; Z79.4 Diabetes mellitus complication status: with circulatory complication Diabetes mellitus fci insulin use: with fci use BETTE (obstructive sleep apnea) G47.33 Coronary artery disease I25.10 Primary hypertension I10 Hypertension type: primary hypertension Acute hyperkalemia E87.5 Acute kidney injury N17.9 COPD (chronic obstructive pulmonary disease) J44.9 (7) Type 2 diabetes mellitus Diabetes mellitus complication status: with circulatory complication Diabetes mellitus fci insulin use: with terminal operations manager use Qualified Code(s): E11.52 - Type 2 diabetes mellitus with diabetic peripheral angiopathy with gangrene; Z79.4 - vermin exterminator (current) use of insulin (10) Hypertension Hypertension type: primary hypertension Qualified Code(s): I10 - Essential (primary) hypertension
[2025-07-11 16:13] LABS: Magnesium 2.1 mg/dl (1.7-2.4); Potassium 4.8 mmol/L (3.5-5.1)
[2025-07-12 06:22] LABS: Anion Gap 6.0 (3-11); Blood Urea Nitrogen 33.0 mg/dl (6-23); Calcium 9.5 mg/dl (8.6-10.3); Carbon Dioxide 36.0 mmol/L (21-32); Chloride 97.0 mmol/L (98-107); Creatinine Clr Calc Pharmacy 57.6 ml/min; Glucose 182.0 mg/dl (70-99(Fasting)); Potassium 5.0 mmol/L (3.5-5.1); Sodium 139.0 mmol/L (136-145)
[2025-07-12] MEDS: FUROSEMIDE 40 MG/4 ML VIAL IV ONE (08:07)
[2025-07-12] MEDS: SODIUM ZIRCONIUM CYCLOSILICATE 10 GM PACKET PO SCH (11:23)
[2025-07-12] MEDS: ALBUT/IPRATROP 3MG/0.5MG NEB 3 ML VIAL NEB SCH (19:49)
[2025-07-13 06:53] LABS: Anion Gap 7.0 (3-11); Blood Urea Nitrogen 31.0 mg/dl (6-23); Calcium 9.5 mg/dl (8.6-10.3); Carbon Dioxide 37.0 mmol/L (21-32); Chloride 94.0 mmol/L (98-107); Creatinine Clr Calc Pharmacy 63.2 ml/min; Glucose 83.0 mg/dl (70-99(Fasting)); Potassium 4.0 mmol/L (3.5-5.1); Sodium 138.0 mmol/L (136-145)
[2025-07-13] MEDS ORDERED: GLUCOSE 10 TAB/TUBE PO PRN (08:45)
[2025-07-13] MEDS ORDERED: GLUCOSE 40% GEL 15 GM TUBE PO PRN (08:45)
[2025-07-13] MEDS: LANTUS PER UNIT CHARGE SC SCH ×2 (08:45→22:26)
[2025-07-13] MEDS ORDERED: GLUCAGON FOR INJ 1 MG VIAL SQ PRN (08:45)
[2025-07-13] MEDS ORDERED: DEXTROSE 50% 50 ML SYRINGE IV PRN (08:45)
--- NOTE | 2025-07-13 08:47 | Hospitalist Progress Note ---
Date of Service July 12, 2025 Assessment & Plan (1) Acute on chronic respiratory failure with hypoxia and hypercapnia: (2) Acute on chronic heart failure with preserved ejection fraction (HFpEF): (3) Acute on chronic right-sided congestive heart failure: (4) COPD with emphysema: (5) Status post below knee amputation of right lower extremity: (6) Pulmonary hypertension: (7) Type 2 diabetes mellitus: (8) BETTE (obstructive sleep apnea): (9) Coronary artery disease: (10) Hypertension: (11) Acute hyperkalemia: (12) Acute kidney injury: (13) COPD (chronic obstructive pulmonary disease): Plan 70yo male with history of chronic hypoxic/hypercapnic respiratory failure on h ome O2 4 liters continuously, BETTE on BIPAP, right-sided CHF, pulmonary HTN, right BKA status, COPD, T2DM, and HTN presents from home with his son due to worsening dyspnea. He was just hospitalized from 06/30 to 07/03 for a syncopal episode, MADDI, and minimally elevated troponin level. Patient reports that when he returned home he was more short of breath than his usual baseline, then about 2 days after the he had worsening abdominal swelling along with worsening shortness of breath. #acute/chronic hypoxic & hypercapnic respiratory failure - -2nd decompensated CHF -acute resp failure component resolved -cont IV diuresis -compliance with his normal med regimen is uncertain and symptoms worsened following the suggesting possible salt load -cont BIPAP HS, and NC O2 otherwise -cont NC O2 to maintain O2 sats 88-92% #acute/chronic HFpEF with known right-sided CHF - IMPROVED - -cont lasix 40mg IV daily with BMP in am -10/2024 echo with preserved LV EF but severe right-sided RV dysfunction with pulm HTN -abd swelling, ascites seen on imaging, etc all c/w right-sided CHF -he asked if we have cardiology over where he lives ([place]) -Dr Cheng and another provider go to [place] office every Tuesday -will recommend he link up with that office post-d/c for ongoing care #acute hyperkalemia - -2nd to lisinopril usage in the setting of recent MADDI -K level still 5 today -give lokelma today -BMP am -cont to hold lisinopril #recent MADDI - -Cr ~2 during recent hospitalization -Cr today 1.4 but acceptable and making copious urine -BMP am #BETTE - -BIPAP with sleep/naps #pulm HTN - -presumed 2nd to COPD -NC O2 #COPD - -s/p IV steroids in ER but presentation not c/w COPD flare; suspect everything was due to decompensated CHF -cont home inhalers -cont duonebs #uncontrolled T2DM - -a1c 10.8% during 06/2025 hospital stay -suspect noncompliance with both diet & meds -hold all PO agents -hold Mounjaro -lantus BID -novolog SSI -BSGs ac/hs #HTN - -cont all BP meds except for lisinopril due to recent hyperkalemia and recent MADDI #CAD - -per records had R/L heart cath at [facility] in 2019 showing non-occlusive CAD and mod pulm HTN -remains on asa, plavix, statin #PAD - -12/2023 had ischemic R foot -12/2024 - had arteriogram showing occlusion of distal SFA along with a right popliteal stent with very distal reconstitution of the PT with no foot outflow -attempts at thrombectomy of the SFA & popliteal occlusions unsuccessful -this ultimately led to right BKA -cont statin -cont asa/plavix -cont pletal #DVT proph - -add lovenox daily will need PT/OT evals to ensure safe for home Admission and Anticipated Discharge Date Admission Date: July 10, 2025 Subjective continues to feel better no dyspnea - completely resolved minimal cough eating well still no bowel movement - last one was at home denies any new complaints tele stable overnight Review of Systems Review of Systems: CV - no chest pain, no PND, no orthopnea, edema resolved pulm - dyspnea resolved GI - no n/v Physical Exam Physical Exam: gen - sitting in chair comfortably, NAD, looks well today HENT - MMM neck - no JVD heart - RRR, s1, s2 is widely split (or s3), no obvious murmur lungs - faint b/l rales bases, otherwise CTA b/l and without wheezes abd - distension again improved (probably had body wall edema and ascites), BS+, NT, no HSM ext - right BKA; left leg w/o edema vascular - pulses left foot 1+ at best Results & Data Results & Data Vital Signs (Past 12 Hours) Vital Signs Temp Pulse Pulse Resp BP Pulse Ox O2 Del Method 07/12/25 15:45 96 H 07/12/25 15:25 36.7 C 87 18 112/71 93 Nasal Cannula 07/12/25 14:38 89 18 93 Nasal Cannula 07/12/25 11:21 36.6 C 97 H 18 113/74 94 Nasal Cannula 07/12/25 10:40 88 18 94 Nasal Cannula 07/12/25 10:19 81 Laboratory Results Laboratory Results - last 48 hr 07/11/25 07/11/25 07/11/25 11:43 15:35 16:44 Sodium Potassium 4.8 Chloride Carbon Dioxide Anion Gap BUN Creatinine Est Cr Clr Drug Dosing eGFR BUN/Creatinine Ratio Glucose POC Glucose 207 H 212 H Calcium Magnesium 2.1 07/11/25 07/12/25 07/12/25 19:43 05:31 07:46 Sodium 139 Potassium 5.0 Chloride 97 L Carbon Dioxide 36 H Anion Gap 6 BUN 33 H Creatinine 1.45 H Est Cr Clr Drug Dosing 57.6 eGFR 51.84 BUN/Creatinine Ratio 22.8 H Glucose 182 H POC Glucose 234 H 144 H Calcium 9.5 Magnesium 07/12/25 07/12/25 12:04 16:27 Sodium Potassium Chloride Carbon Dioxide Anion Gap BUN Creatinine Est Cr Clr Drug Dosing eGFR BUN/Creatinine Ratio Glucose POC Glucose 150 H 128 H Calcium Magnesium PG Care Time/CCT Total # of Minutes Spent Total Time Spent with Patient: Total time spent is greater than 50% in coordination of care (as documented) at patient's floor/unit and/or counseling patient: Coding Level of Care Code 74133 SUB INP/OBS CARE 2/35MIN Diagnoses Acute on chronic respiratory failure with hypoxia and hypercapnia J96.21; J96.22 Acute on chronic heart failure with preserved ejection fraction (HFpEF) I50.33 Acute on chronic right-sided congestive heart failure I50.813 COPD with emphysema J43.9 Status post below knee amputation of right lower extremity Z89.511 Pulmonary hypertension I27.20 Type 2 diabetes mellitus with diabetic peripheral angiopathy and gangrene, with long-term current use of insulin E11.52; Z79.4 Diabetes mellitus retirement insulin use: with retirement use Diabetes mellitus complication status: with circulatory complication BETTE (obstructive sleep apnea) G47.33 Coronary artery disease I25.10 Primary hypertension I10 Hypertension type: primary hypertension Acute hyperkalemia E87.5 Acute kidney injury N17.9 COPD (chronic obstructive pulmonary disease) J44.9 (7) Type 2 diabetes mellitus Diabetes mellitus terminal operator insulin use: with terminal operator use Diabetes mellitus complication status: with circulatory complication Qualified Code(s): E11.52 - Type 2 diabetes mellitus with diabetic peripheral angiopathy with gangrene; Z79.4 - terminal make up operator (current) use of insulin (10) Hypertension Hypertension type: primary hypertension Qualified Code(s): I10 - Essential (primary) hypertension
[2025-07-13] MEDS: FUROSEMIDE 40 MG/4 ML VIAL IV ONE (10:09)
[2025-07-13] MEDS: ENOXAPARIN INJ 40 MG/0.4 ML SYR SQ SCH (10:12)
[2025-07-13] MEDS: POLYETHYLENE (MIRALAX) 17 GM PACK PO SCH (16:28)
[2025-07-13] MEDS: SENNA 8.6 MG TAB PO SCH (16:28)
--- NOTE | 2025-07-13 16:50 | Hospitalist Progress Note ---
Date of Service July 13, 2025 Assessment & Plan (1) Acute on chronic respiratory failure with hypoxia and hypercapnia: (2) Acute on chronic heart failure with preserved ejection fraction (HFpEF): (3) Acute on chronic right-sided congestive heart failure: (4) COPD with emphysema: (5) Status post below knee amputation of right lower extremity: (6) Pulmonary hypertension: (7) Type 2 diabetes mellitus: (8) BETTE (obstructive sleep apnea): (9) Coronary artery disease: (10) Hypertension: (11) Acute hyperkalemia: (12) Acute kidney injury: (13) COPD (chronic obstructive pulmonary disease): Plan 70yo male with history of chronic hypoxic/hypercapnic respiratory failure on h ome O2 4 liters continuously, BETTE on BIPAP, right-sided CHF, pulmonary HTN, right BKA status, COPD, T2DM, and HTN presents from home with his son due to worsening dyspnea. He was just hospitalized from 06/30 to 07/03 for a syncopal episode, MADDI, and minimally elevated troponin level. Patient reports that when he returned home he was more short of breath than his usual baseline, then about 2 days after the he had worsening abdominal swelling along with worsening shortness of breath. #acute/chronic hypoxic & hypercapnic respiratory failure - -2nd decompensated CHF -acute resp failure component resolved -cont IV diuresis -compliance with his normal med regimen is uncertain and symptoms worsened following the suggesting possible salt load -cont BIPAP HS, and NC O2 otherwise -cont NC O2 to maintain O2 sats 88-92% #acute/chronic HFpEF with known right-sided CHF - IMPROVED, suspect we are approaching euvolemia - -cont lasix 40mg IV daily with BMP in am; add mag to morning labs tomorrow -10/2024 echo with preserved LV EF but severe right-sided RV dysfunction with pulm HTN -abd swelling, ascites seen on imaging, etc all c/w right-sided CHF -he asked if we have cardiology over where he lives ([place]) -Dr Cheng and another provider go to [place] office every Tuesday - he is interested in this -will recommend he link up with that office post-d/c for ongoing care #acute hyperkalemia - -2nd to lisinopril usage in the setting of recent MADDI -resolved -K level 4 today -stop lokelma -BMP am -cont to hold lisinopril #recent MADDI - -Cr ~2 during recent hospitalization -Cr today 1.3 -BMP am #BETTE - -BIPAP with sleep/naps #pulm HTN - -presumed 2nd to COPD -NC O2 #COPD - -s/p IV steroids in ER but presentation not c/w COPD flare; suspect everything was due to decompensated CHF -cont home inhalers -cont duonebs #uncontrolled T2DM - -a1c 10.8% during 06/2025 hospital stay -suspect noncompliance with both diet & meds -hold all PO agents -hold Mounjaro -lantus BID but lower to 50 units BID -novolog SSI - made 2 additional dose adjustments today due to BSGs that are trending low -BSGs ac/hs #HTN - -cont all BP meds except for lisinopril due to recent hyperkalemia and recent MADDI #CAD - -per records had R/L heart cath at [facility] in 2019 showing non-occlusive CAD and mod pulm HTN -remains on asa, plavix, statin #PAD - -12/2023 had ischemic R foot -12/2024 - had arteriogram showing occlusion of distal SFA along with a right popliteal stent with very distal reconstitution of the PT with no foot outflow -attempts at thrombectomy of the SFA & popliteal occlusions unsuccessful -this ultimately led to right BKA -cont statin -cont asa/plavix -cont pletal #DVT proph - -lovenox daily PT eval completed today; PT feels he can return home at d/c Admission and Anticipated Discharge Date Admission Date: July 10, 2025 Subjective tele overnight wnl pt lying in bed watching TV denies any new complaints feels well no respiratory symptoms abd distension improved no bowel movement; apparently declined taking constipation aids this am Review of Systems Review of Systems: CV - no chest pain; no LE edema pulm - no dyspnea GI - no nausea/emesis Physical Exam Physical Exam: gen - lying in bed, NAD HENT - MMM neck - no JVD heart - RRR, s1, s2, no obvious murmur lungs - nearly resolved rales bases b/l abd - distension again improved, BS+, NT, no HSM ext - right BKA; left leg w/o edema vascular - pulses left foot 1+ Results & Data Results & Data Vital Signs (Past 12 Hours) Vital Signs Temp Pulse Pulse Resp BP Pulse Ox O2 Del Method 07/13/25 16:20 36.9 C 88 20 126/56 L 96 Nasal Cannula 07/13/25 16:19 88 07/13/25 12:10 36.7 C 90 18 116/71 91 Nasal Cannula 07/13/25 07:51 83 18 118/76 96 CPAP 07/13/25 07:45 Nasal Cannula 07/13/25 07:28 83 07/13/25 07:02 80 15 94 07/13/25 07:02 80 15 96 BiPAP O2 Flow Rate FiO2 07/13/25 16:20 4 07/13/25 16:19 07/13/25 12:10 4 07/13/25 07:51 07/13/25 07:45 4 07/13/25 07:28 07/13/25 07:02 40 07/13/25 07:02 40 Laboratory Results Laboratory Results - last 24 hr 07/13/25 07/13/25 07/13/25 05:45 08:01 11:30 Sodium 138 Potassium 4.0 Chloride 94 L Carbon Dioxide 37 H Anion Gap 7 BUN 31 H Creatinine 1.32 Est Cr Clr Drug Dosing 63.2 eGFR 58.03 BUN/Creatinine Ratio 23.5 H Glucose 83 POC Glucose 89 105 H Calcium 9.5 PG Care Time/CCT Total # of Minutes Spent Total Time Spent with Patient: Total time spent is greater than 50% in coordination of care (as documented) at patient's floor/unit and/or counseling patient: Coding Level of Care Code 90984 SUB INP/OBS CARE 2/35MIN Diagnoses Acute on chronic respiratory failure with hypoxia and hypercapnia J96.21; J96.22 Acute on chronic heart failure with preserved ejection fraction (HFpEF) I50.33 Acute on chronic right-sided congestive heart failure I50.813 COPD with emphysema J43.9 Status post below knee amputation of right lower extremity Z89.511 Pulmonary hypertension I27.20 Type 2 diabetes mellitus with diabetic peripheral angiopathy and gangrene, with long-term current use of insulin E11.52; Z79.4 Diabetes mellitus complication status: with circulatory complication Diabetes mellitus correction insulin use: with watermelon inspector use BETTE (obstructive sleep apnea) G47.33 Coronary artery disease I25.10 Primary hypertension I10 Hypertension type: primary hypertension Acute hyperkalemia E87.5 Acute kidney injury N17.9 COPD (chronic obstructive pulmonary disease) J44.9 (7) Type 2 diabetes mellitus Diabetes mellitus complication status: with circulatory complication Diabetes mellitus correction insulin use: with watermelon inspector use Qualified Code(s): E11.52 - Type 2 diabetes mellitus with diabetic peripheral angiopathy with gangrene; Z 79.4 - watermelon inspector (current) use of insulin (10) Hypertension Hypertension type: primary hypertension Qualified Code(s): I10 - Essential (primary) hypertension
[2025-07-13] MEDS: LANTUS PER UNIT CHARGE SQ STA (22:29)
[2025-07-14 07:44] LABS: Anion Gap 8.0 (3-11); Blood Urea Nitrogen 32.0 mg/dl (6-23); Calcium 9.5 mg/dl (8.6-10.3); Carbon Dioxide 33.0 mmol/L (21-32); Chloride 96.0 mmol/L (98-107); Creatinine Clr Calc Pharmacy 64.7 ml/min; Glucose 103.0 mg/dl (70-99(Fasting)); Magnesium 1.9 mg/dl (1.7-2.4); Potassium 4.0 mmol/L (3.5-5.1); Sodium 137.0 mmol/L (136-145)
[2025-07-14] MEDS: LANTUS PER UNIT CHARGE SC SCH (09:01)
[2025-07-14] MEDS: FUROSEMIDE 40 MG/4 ML VIAL IV ONE (10:08)
--- NOTE | 2025-07-14 20:32 | Hospitalist Progress Note ---
Date of Service July 14, 2025 Assessment & Plan (1) Acute on chronic respiratory failure with hypoxia and hypercapnia: (2) Acute on chronic heart failure with preserved ejection fraction (HFpEF): (3) Acute on chronic right-sided congestive heart failure: (4) COPD with emphysema: (5) Status post below knee amputation of right lower extremity: (6) Pulmonary hypertension: (7) Type 2 diabetes mellitus: (8) BETTE (obstructive sleep apnea): (9) Coronary artery disease: (10) Hypertension: (11) Acute hyperkalemia: (12) Acute kidney injury: (13) COPD (chronic obstructive pulmonary disease): Plan 70yo male with history of chronic hypoxic/hypercapnic respiratory failure on h ome O2 4 liters continuously, BETTE on BIPAP, right-sided CHF, pulmonary HTN, right BKA status, COPD, T2DM, and HTN presents from home with his son due to worsening dyspnea. He was just hospitalized from 06/30 to 07/03 for a syncopal episode, MADDI, and minimally elevated troponin level. Patient reports that when he returned home he was more short of breath than his usual baseline, then about 2 days after the he had worsening abdominal swelling along with worsening shortness of breath. #acute/chronic hypoxic & hypercapnic respiratory failure - -2nd decompensated CHF -acute resp failure component resolved -cont IV diuresis - lasix 40mg IV daily; he is net neg about 1.5-2 liters each day with such -compliance with his normal med regimen is uncertain and symptoms worsened following the suggesting possible salt load -cont BIPAP HS, and NC O2 otherwise -cont NC O2 to maintain O2 sats 88-92% #acute/chronic HFpEF with known right-sided CHF - IMPROVED, suspect we are approaching euvolemia - -cont lasix 40mg IV daily with BMP in am; add mag to morning labs tomorrow -10/2024 echo with preserved LV EF but severe right-sided RV dysfunction with pulm HTN -abd swelling, ascites seen on imaging, etc all c/w right-sided CHF -he asked if we have cardiology over where he lives ([place]) -Dr Cheng and another provider go to [place] office every Tuesday - he is interested in this -will recommend he link up with that office post-d/c for ongoing care #acute hyperkalemia - -2nd to lisinopril usage in the setting of recent MADDI -resolved -BMP am -cont to hold lisinopril #recent MADDI - -Cr ~2 during recent hospitalization -Cr today 1.29 -BMP am #BETTE - -BIPAP with sleep/naps #pulm HTN - -presumed 2nd to COPD -NC O2 #COPD - -s/p IV steroids in ER but presentation not c/w COPD flare; suspect everything was due to decompensated CHF -cont home inhalers -cont duonebs #uncontrolled T2DM - -a1c 10.8% during 06/2025 hospital stay -suspect noncompliance with both diet & meds -hold all PO agents -hold Mounjaro -lantus BID but lower to 45 units BID as his control is very tight with low- normal BSGs -novolog SSI - made additional dose adjustments today due to BSGs that continue to trend low -BSGs ac/hs #HTN - -cont all BP meds except for lisinopril due to recent hyperkalemia and recent A KI #CAD - -per records had R/L heart [facility] in 2019 showing non-occlusive CAD and mod pulm HTN -remains on asa, plavix, statin #PAD - -12/2023 had ischemic R foot -12/2024 - had arteriogram showing occlusion of distal SFA along with a right popliteal stent with very distal reconstitution of the PT with no foot outflow -attempts at thrombectomy of the SFA & popliteal occlusions unsuccessful -this ultimately led to right BKA -cont statin -cont asa/plavix -cont pletal #DVT proph - -lovenox daily PT eval completed; PT feels he can return home at d/c suspect he will be ready for d/c home next 1-2 days Admission and Anticipated Discharge Date Admission Date: July 10, 2025 Subjective no events feels good absolutely no complaints no dyspnea no THAPA no cough no chest pain still no stool eating 100% meals Review of Systems Review of Systems: cv - no chest pain pulm - no cough or wheeze GI - no abd pain or N/V Physical Exam Physical Exam: gen - sitting in chair, NAD HENT - MMM neck - no JVD heart - RRR, s1, s2, no obvious murmur lungs - minimal rales bases b/l with good airation and no wheezes abd - distension again improved/more soft each day, BS+, NT, no HSM ext - right BKA; left leg w/o edema vascular - pulses left foot 1+ Results & Data Results & Data Vital Signs (Past 12 Hours) Vital Signs Temp Pulse Pulse Resp BP Pulse Ox O2 Del Method 07/14/25 19:49 77 16 99 Nasal Cannula 07/14/25 19:10 Nasal Cannula 07/14/25 16:05 36.5 C 80 20 113/76 91 Nasal Cannula 07/14/25 14:06 81 07/14/25 12:20 36.6 C 88 18 114/71 95 Nasal Cannula O2 Flow Rate 07/14/25 19:49 3 07/14/25 19:10 4 07/14/25 16:05 4 07/14/25 14:06 07/14/25 12:20 4 Laboratory Results Laboratory Results - last 24 hr 07/13/25 07/13/25 07/13/25 20:24 20:56 22:05 Sodium Potassium Chloride Carbon Dioxide Anion Gap BUN Creatinine Est Cr Clr Drug Dosing eGFR BUN/Creatinine Ratio Glucose POC Glucose 78 71 107 H Calcium Magnesium 07/14/25 07/14/25 07/14/25 05:25 07:53 11:34 Sodium 137 Potassium 4.0 Chloride 96 L Carbon Dioxide 33 H Anion Gap 8 BUN 32 H Creatinine 1.29 Est Cr Clr Drug Dosing 64.7 eGFR 59.65 BUN/Creatinine Ratio 24.8 H Glucose 103 H POC Glucose 115 H 127 H Calcium 9.5 Magnesium 1.9 07/14/25 16:37 Sodium Potassium Chloride Carbon Dioxide Anion Gap BUN Creatinine Est Cr Clr Drug Dosing eGFR BUN/Creatinine Ratio Glucose POC Glucose 83 Calcium Magnesium PG Care Time/CCT Total # of Minutes Spent Total Time Spent with Patient: Total time spent is greater than 50% in coordination of care (as documented) at patient's floor/unit and/or counseling patient: Coding Level of Care Code 68663 SUB INP/OBS CARE 2/35MIN Diagnoses Acute on chronic respiratory failure with hypoxia and hypercapnia J96.21; J96.22 Acute on chronic heart failure with preserved ejection fraction (HFpEF) I50.33 Acute on chronic right-sided congestive heart failure I50.813 COPD with emphysema J43.9 Status post below knee amputation of right lower extremity Z89.511 Pulmonary hypertension I27.20 Type 2 diabetes mellitus with diabetic peripheral angiopathy and gangrene, with long-term current use of insulin E11.52; Z79.4 Diabetes mellitus complication status: with circulatory complication Diabetes mellitus custodial insulin use: with termite exterminator helper use BETTE (obstructive sleep apnea) G47.33 Coronary artery disease I25.10 Primary hypertension I10 Hypertension type: primary hypertension Acute hyperkalemia E87.5 Acute kidney injury N17.9 COPD (chronic obstructive pulmonary disease) J44.9 (7) Type 2 diabetes mellitus Diabetes mellitus complication status: with circulatory complication Diabetes mellitus custodial insulin use: with termite exterminator helper use Qualified Code(s): E11.52 - Type 2 diabetes mellitus with diabetic peripheral angiopathy with gangrene; Z79.4 - adjunct faculty for medical terminology (current) use of insulin (10) Hypertension Hypertension type: primary hypertension Qualified Code(s): I10 - Essential (primary) hypertension
[2025-07-15] MEDS: CARBOHYDRATES FOR HYPOGLYCEMIA PO PRN (07:45)
[2025-07-15 08:30] LABS: Anion Gap 7.0 (3-11); Blood Urea Nitrogen 28.0 mg/dl (6-23); Calcium 9.7 mg/dl (8.6-10.3); Carbon Dioxide 37.0 mmol/L (21-32); Chloride 96.0 mmol/L (98-107); Creatinine Clr Calc Pharmacy 61.3 ml/min; Glucose 47.0 mg/dl (70-99(Fasting)); Potassium 3.7 mmol/L (3.5-5.1); Sodium 140.0 mmol/L (136-145)
[2025-07-15] MEDS: LANTUS PER UNIT CHARGE SC SCH ×2 (09:09→21:06)
[2025-07-15] MEDS: FUROSEMIDE 40 MG/4 ML VIAL IV ONE (10:01)
--- NOTE | 2025-07-15 11:10 | Hospitalist Progress Note ---
Date of Service July 15, 2025 Assessment & Plan (1) Acute on chronic respiratory failure with hypoxia and hypercapnia: (2) Acute on chronic heart failure with preserved ejection fraction (HFpEF): (3) Acute on chronic right-sided congestive heart failure: (4) COPD with emphysema: (5) Status post below knee amputation of right lower extremity: (6) Pulmonary hypertension: (7) Type 2 diabetes mellitus: (8) BETTE (obstructive sleep apnea): (9) Coronary artery disease: (10) Hypertension: (11) Acute hyperkalemia: (12) Acute kidney injury: (13) COPD (chronic obstructive pulmonary disease): Plan 70yo male with history of chronic hypoxic/hypercapnic respiratory failure on h ome O2 4 liters continuously, BETTE on BIPAP, right-sided CHF, pulmonary HTN, right BKA status, COPD, T2DM, and HTN presents from home with his son due to worsening dyspnea. He was just hospitalized from 06/30 to 07/03 for a syncopal episode, MADDI, and minimally elevated troponin level. Patient reports that when he returned home he was more short of breath than his usual baseline, then about 2 days after the he had worsening abdominal swelling along with worsening shortness of breath. #acute/chronic hypoxic & hypercapnic respiratory failure - acute component resolved - -acute component 2nd decompensated CHF -cont IV diuresis - lasix 40mg IV daily; he is net neg about 1.5-2 liters each day with such -compliance with his normal med regimen is uncertain and symptoms worsened following the suggesting possible salt load -cont BIPAP HS, and NC O2 otherwise; by report is not compliant with BIPAP at home -cont NC O2 to maintain O2 sats 88-92% #acute/chronic HFpEF with known right-sided CHF - IMPROVED - -cont lasix 40mg IV daily with BMP in am -10/2024 echo with preserved LV EF but severe right-sided RV dysfunction with pulm HTN -abd swelling, ascites seen on imaging, etc all c/w right-sided CHF -he asked if we have cardiology over where he lives ([place]) -Dr Cheng and another provider go to [place] office every Tuesday - he is interested in this -will recommend he link up with that office post-d/c for ongoing care -due to ascites will add aldactone 25mg daily in addition to lasix #acute hyperkalemia - -2nd to lisinopril usage in the setting of recent MADDI -resolved -BMP am -cont to hold lisinopril #recent MADDI - -Cr ~2 during recent hospitalization -Cr today 1.3 -BMP am #BETTE - -BIPAP with sleep/naps #pulm HTN - -presumed 2nd to COPD -NC O2 #COPD - -s/p IV steroids in ER but presentation not c/w COPD flare; suspect everything was due to decompensated CHF -cont home inhalers -cont duonebs -no steroids needed #uncontrolled T2DM - -a1c 10.8% during 06/2025 hospital stay -suspect noncompliance with both diet & meds at home -hold all PO agents -hold Mounjaro -he reports he takes 60 units of lantus BID but has had significant hypoglycemia with even smaller doses of such -will make the lantus daily at 35 units HS -novolog SSI - made additional dose adjustments once again - parameters at this point are very loose -BSGs ac/hs #HTN - -cont all BP meds except for lisinopril due to recent hyperkalemia and recent MADDI -adding aldactone to help with ascites #CAD - -per records had R/L heart cath at [facility] in 2019 showing non-occlusive CAD and mod pulm HTN -remains on asa, plavix, statin #PAD - -12/2023 had ischemic R foot -12/2024 - had arteriogram showing occlusion of distal SFA along with a right popliteal stent with very distal reconstitution of the PT with no foot outflow -attempts at thrombectomy of the SFA & popliteal occlusions unsuccessful -this ultimately led to right BKA -cont statin -cont asa/plavix -cont pletal #DVT proph - -lovenox daily PT eval completed; PT feels he can return home at d/c attempted to call pt's son this evening, 07/15 left voicemail detailing how his father is doing d/c home next 1-2 days remove franco for voiding trial Admission and Anticipated Discharge Date Admission Date: July 10, 2025 Subjective tele overnight wnl sitting in chair watching TV no complaints he does not use a franco at home - willing to have franco removed for voiding trial he does have prosthetic leg for his right BKA does not wear it last wore it 1-2 months ago we discussed putting the prosthesis on at home and doing daily weights for his CHF Review of Systems Review of Systems: CV - no chest pain pulm - no dyspnea or THAPA GI - abd distension improved; still no bowel movement Physical Exam Physical Exam: gen - sitting in chair, NAD, looks good; speech difficult to understand (baseline) HENT - MMM neck - no JVD heart - RRR, s1, s2, no obvious murmur lungs - minimal rales bases b/l abd - distension again improved/more soft (ascites improved), BS+, NT, no HSM ext - right BKA; left leg w/o edema vascular - pulses left foot 1+ - franco still in place, 2 liters of urine in bag following lasix IV this am Results & Data Results & Data Vital Signs (Past 12 Hours) Vital Signs Temp Pulse Pulse Resp BP Pulse Ox O2 Del Method 07/15/25 09:32 80 07/15/25 07:51 Nasal Cannula 07/15/25 07:45 37.3 C 79 20 146/89 H 91 Nasal Cannula 07/15/25 07:34 74 16 96 BiPAP 07/15/25 04:20 73 19 127/81 95 BiPAP 07/15/25 03:14 79 16 96 07/15/25 00:00 74 07/14/25 23:52 36.7 C 76 19 110/73 96 BiPAP O2 Flow Rate FiO2 07/15/25 09:32 07/15/25 07:51 3 07/15/25 07:45 3 07/15/25 07:34 40 07/15/25 04:20 07/15/25 03:14 40 07/15/25 00:00 07/14/25 23:52 Laboratory Results Laboratory Results - last 24 hr 07/14/25 07/14/25 07/14/25 11:34 16:37 19:59 Sodium Potassium Chloride Carbon Dioxide Anion Gap BUN Creatinine Est Cr Clr Drug Dosing eGFR BUN/Creatinine Ratio Glucose POC Glucose 127 H 83 105 H Calcium 07/15/25 07/15/25 07/15/25 07:01 07:43 07:44 Sodium 140 Potassium 3.7 Chloride 96 L Carbon Dioxide 37 H Anion Gap 7 BUN 28 H Creatinine 1.32 Est Cr Clr Drug Dosing 61.3 eGFR 58.03 BUN/Creatinine Ratio 21.2 H Glucose 47 L* POC Glucose 58 L* 54 L* Calcium 9.7 07/15/25 07/15/25 07/15/25 08:00 08:23 10:03 Sodium Potassium Chloride Carbon Dioxide Anion Gap BUN Creatinine Est Cr Clr Drug Dosing eGFR BUN/Creatinine Ratio Glucose POC Glucose 63 L* 64 L* 125 H Calcium PG Care Time/CCT Total # of Minutes Spent Total Time Spent with Patient: Total time spent is greater than 50% in coordination of care (as documented) at patient's floor/unit and/or counseling patient: Coding Level of Care Code 72666 SUB INP/OBS CARE 2/35MIN Diagnoses Acute on chronic respiratory failure with hypoxia and hypercapnia J96.21; J96.22 Acute on chronic heart failure with preserved ejection fraction (HFpEF) I50.33 Acute on chronic right-sided congestive heart failure I50.813 COPD with emphysema J43.9 Status post below knee amputation of right lower extremity Z89.511 Pulmonary hypertension I27.20 Type 2 diabetes mellitus with diabetic peripheral angiopathy and gangrene, with long-term current use of insulin E11.52; Z79.4 Diabetes mellitus complication status: with circulatory complication Diabetes mellitus nursing home insulin use: with termite exterminator helper use BETTE (obstructive sleep apnea) G47.33 Coronary artery disease I25.10 Primary hypertension I10 Hypertension type: primary hypertension Acute hyperkalemia E87.5 Acute kidney injury N17.9 COPD (chronic obstructive pulmonary disease) J44.9 (7) Type 2 diabetes mellitus Diabetes mellitus complication status: with circulatory complication Diabetes mellitus termite exterminator helper insulin use: with nursing home use Qualified Code(s): E11.52 - Type 2 diabetes mellitus with diabetic peripheral angiopathy with gangrene; Z79.4 - alf (current) use of insulin (10) Hypertension Hypertension type: primary hypertension Qualified Code(s): I10 - Essential (primary) hypertension
[2025-07-15] MEDS: SPIRONOLACTONE 25 MG TAB PO ONE (11:27)
[2025-07-16 07:32] LABS: Anion Gap 8.0 (3-11); Blood Urea Nitrogen 27.0 mg/dl (6-23); Calcium 9.6 mg/dl (8.6-10.3); Carbon Dioxide 34.0 mmol/L (21-32); Chloride 95.0 mmol/L (98-107); Creatinine Clr Calc Pharmacy 61.6 ml/min; Glucose 101.0 mg/dl (70-99(Fasting)); Magnesium 2.0 mg/dl (1.7-2.4); Potassium 4.0 mmol/L (3.5-5.1); Sodium 137.0 mmol/L (136-145)
[2025-07-16 07:41] VITALS: PULSE 82; RESP 22; TEMP 97.9; O2SAT 93
[2025-07-16] MEDS: SPIRONOLACTONE 25 MG TAB PO SCH (08:54)
[2025-07-16] MEDS: FUROSEMIDE 40 MG TAB PO SCH (08:54)
[2025-07-16 12:24] VITALS: BP 127/86
--- NOTE | 2025-07-16 12:24 | Discharge Summary ---
Discharge Summary Date of Service July 16, 2025 Principal Dx & Hospital Course #1 = Principal Diagnosis (1) Acute on chronic respiratory failure with hypoxia and hypercapnia: (2) Acute on chronic heart failure with preserved ejection fraction (HFpEF): (3) Acute on chronic right-sided congestive heart failure: (4) COPD with emphysema: (5) Status post below knee amputation of right lower extremity: (6) Pulmonary hypertension: (7) Type 2 diabetes mellitus: (8) BETTE (obstructive sleep apnea): (9) Coronary artery disease: (10) Hypertension: (11) Acute hyperkalemia: (12) Acute kidney injury: (13) COPD (chronic obstructive pulmonary disease): Plan 70yo male with history of chronic hypoxic/hypercapnic respiratory failure on home O2 4 liters continuously, BETTE on BIPAP, right-sided CHF, pulmonary HTN, right BKA status, COPD, T2DM, and HTN presents from home with his son due to worsening dyspnea. He was just hospitalized from 06/30 to 07/03 for a syncopal episode, MADDI, and minimally elevated troponin level. Patient reports that when he returned home he was more short of breath than his usual baseline, then about 2 days after the he had worsening abdominal swelling along with worsening shortness of breath. #acute/chronic hypoxic & hypercapnic respiratory failure - acute component resolved - -acute component 2nd decompensated CHF -cont IV diuresis - lasix 40mg IV daily; he is net neg about 1.5-2 liters each day with such -compliance with his normal med regimen is uncertain and symptoms worsened following the suggesting possible salt load -cont BIPAP HS, and NC O2 otherwise; by report is not compliant with BIPAP at home -cont NC O2 to maintain O2 sats 88-92% #acute/chronic HFpEF with known right-sided CHF - IMPROVED - -cont lasix 40mg IV daily with BMP in am -10/2024 echo with preserved LV EF but severe right-sided RV dysfunction with pulm HTN -abd swelling, ascites seen on imaging, etc all c/w right-sided CHF -he asked if we have cardiology over where he lives ([place]) -Dr Cheng and another provider go to [place] office every Tuesday - he is interested in this -will recommend he link up with that office post-d/c for ongoing care -due to ascites will add aldactone 25mg daily in addition to lasix #acute hyperkalemia - -2nd to lisinopril usage in the setting of recent MADDI -resolved -BMP am -cont to hold lisinopril #recent MADDI - -Cr ~2 during recent hospitalization -Cr today 1.3 -BMP am #BETTE - -BIPAP with sleep/naps #pulm HTN - -presumed 2nd to COPD -NC O2 #COPD - -s/p IV steroids in ER but presentation not c/w COPD flare; suspect everything was due to decompensated CHF -cont home inhalers -cont duonebs -no steroids needed #uncontrolled T2DM - -a1c 10.8% during 06/2025 hospital stay -suspect noncompliance with both diet & meds at home -hold all PO agents -hold Mounjaro -he reports he takes 60 units of lantus BID but has had significant hypoglycemia with even smaller doses of such -will make the lantus daily at 35 units HS -novolog SSI - made additional dose adjustments once again - parameters at this point are very loose -BSGs ac/hs #HTN - -cont all BP meds except for lisinopril due to recent hyperkalemia and recent MADDI -adding aldactone to help with ascites #CAD - -per records had R/L heart cath at [facility] in 2019 showing non-occlusive CAD and mod pulm HTN -remains on asa, plavix, statin #PAD - -12/2023 had ischemic R foot -12/2024 - had arteriogram showing occlusion of distal SFA along with a right popliteal stent with very distal reconstitution of the PT with no foot outflow -attempts at thrombectomy of the SFA & popliteal occlusions unsuccessful -this ultimately led to right BKA -cont statin -cont asa/plavix -cont pletal #DVT proph - -lovenox daily PT eval completed; PT feels he can return home at d/c attempted to call pt's son this evening, 07/15 left voicemail detailing how his father is doing d/c home next 1-2 days remove franco for voiding trial Admission HPI Per Admitting Provider 70yo male with history of chronic hypoxic/hypercapnic respiratory failure on home O2 4 liters continuously, BETTE on BIPAP, right-sided CHF, pulmonary HTN, right BKA status, COPD, T2DM, and HTN presents from home with his son due to worsening dyspnea. He was just hospitalized from 06/30 to 07/03 for a syncopal episode, MADDI, and minimally elevated troponin level. Patient reports that when he returned home he was more short of breath than his usual baseline, then about 2 days after the he had worsening abdominal swelling along with worsening shortness of breath. He reports compliance with his NC O2, BIPAP, as well as diuretics. Denies any fever. Has been eating normally. During my admission assessment he was on BIPAP and it was difficult to understand him through the mask. Multiple times he reported having to void and ultimately could not do so. A franco was placed, and soon after had 1000cc+ of urine output s/p IV lasix in the ER. Discharge Exam gen - sitting in chair, NAD, looks good; speech difficult to understand (baseline) HENT - MMM neck - no JVD heart - RRR, s1, s2, no obvious murmur lungs - minimal rales bases b/l abd - distension again improved/more soft (ascites improved), BS+, NT, no HSM ext - right BKA; left leg w/o edema vascular - pulses left foot 1+ - franco still in place, 2 liters of urine in bag following lasix IV this am Discharge Plan Discharge Items Patient Disposition: Home - Self-Care Reason For Visit: ACUTE/CHRONIC HYPOXIC/HYPERCAPNIC RESP FAILURE Discharge Diagnosis: 1. acute respiratory failure due to congestive heart failure - latter MUCH improved 2. difficulty breathing due to #1 above - MUCH improved 3. fluid in abdomen due to congestive heart failure - MUCH improved 4. severe urinary retention - with need for franco catheter placement Activity: Resume your previous activity Non-emergency contact: Primary Care Provider, Mailroom Manager and Urologist Call non-emergency contact if: you have any medication questions and your symptoms worsen Follow-up/Referrals: Dayan Mendez PA-C [Physician Gut Cleaner] - 07/19/25 2:30 pm (Cardiology new) Lola Oliver CRNP [Nurse Practitioner] - 07/29/25 8:00 am Padmini Valle MD [Physician] - 07/23/25 11:00 am (Hospital follow up ) Diet: Carb Consistent or DM2 and Low Sodium (2gm) Fluids: 1800ml (7 cups) Addtl Attending Provider Instructions: Mr Monte, You came to the hospital because of difficulty breathing. This was due to fluid build-up in the lungs and your abdomen from congestive heart failure. Your breathing improved as the fluid exited your lungs. You lost more than 25 pounds of water weight while here. Your abdomen had gotten distended because of fluid. During the stay you also had troubles urinating. We call this urinary retention. Your bladder is simply not working normally. This leads to urine building up in the bladder. We had to place a catheter in your bladder to drain it multiple times. You will need to see a urologist (bladder doctor) for this problem. Unfortunately you will have to have a catheter in your bladder when you go home. Recommendations - 1. Check your weight EVERY MORNING as described below. 2. START spironolactone 25mg every morning. This is a water pill/diuretic for your congestive heart. START on 07/17/25. 3. TAKE your furosemide water pill 40mg every morning and every afternoon. 4. Drain the franco catheter bag as needed. I have included handouts on franco catheters. You will need to see [facility] in [place] to have the bladder specialist manage the catheter and determine the cause of the urinary problem. 5. Use 3 liters of oxygen continuously as previous. 6. Use your BIPAP machine every night with sleep and with long naps. This is very important for your heart health. 7. Watch your salt intake - see handout on "low salt" diet. 8. I have LOWERED your long-acting Lantus insulin (glargine) to 40 units ONCE A DAY at bedtime (rather than twice daily). 9. I have STOPPED your glipizide. I have STOPPED your lisinopril. 10. I have prescribed a medicine for your prostate called "tamsulosin." This may help you get the catheter out of your bladder down the line. Start this TOMORROW MORNING, 07/17/25. Follow-up appointments - see separate section Return to [facility] if - -you see large amounts of blood in the franco catheter bag -you are concerned that the catheter is not draining -you have worsening shortness of breath or chest pains -you have concerns about fluid retention -any other concerns It was our pleasure to care for you! -Merrick Burton Director Electronics Provider Instructions: CONGESTIVE HEART FAILURE INSTRUCTIONS: You have "right-sided congestive heart failure." Please see handout that talks about this condition in more detail. Call 911 and go to the Emergency Room if: * You have tightness or pain in your chest that does not go away with rest or Nitroglycerin * You are very short of breath even with rest Call your doctor if any of the following symptoms or problems start or get worse: * Shortness of breath or difficulty breathing * Wake up at night short of breath * Chest pain * Cough * Swelling of your hands, fee, or legs * More fatigued or tired with your normal activity * Palpitations - sudden fast heart beats WEIGHT * Weigh yourself every morning after using the bathroom. You will need to put on your prosthetic leg in order to get onto the scale. * Use the same scale. * Wear the same amount of clothing. * Write your weight down on your chart. * Call your family doctor or your heart doctor if you gain more than 3 pounds in 1-2 days. This is often one of the first signs of fluid retention from congestive heart failure. Don't delay if you are gaining fluid weight rapidly; it is always better to call early rather than wait.* MEDICATIONS * Use this discharge instruction sheet for instructions. * Take your medications at the time your doctor ordered. * Do not skip a dose of your medicines. * If you miss a dose of medicine, take as soon as possible, but DO NOT DOUBLE A DOSE. * Read your medicine information when you get home. * Know all of the side effects of your medicine. * Call your doctor's office if you have any side effects. * Be sure all of your doctors know what medicine and herbs you take (including cold, flu, and herbal medicine). * Pain Medicine: If you do not get relief from your pain, please call your doctor for help. Take the following with you to your follow-up doctor appointments: * Weight Chart * Medication List * List of questions Do not drink excessive alcohol, beer or wine. DIABETES RECOMMENDATIONS: 1.) Monitoring. - You mentioned that you rarely check your blood sugar at home. - Since you take insulin and other diabetes medications, it is important that you check your blood sugar on a daily basis to help safely guide diabetes medication adjustments. - We talked about getting you set up with a continuous glucose monitor. With the continuous glucose monitor, a small sensor is placed on the the back of your arm. The sensor is changed every 15 days. Your family could help with this. The sensor automatically checks your blood sugar thru the day and sends your blood sugar levels to your phone or a separate reader. It also has alarms to alert you if your blood sugar gets too low or too high. Encouraged further discussion with your outpatient provider to help get this started. 2.) Diabetes Medications. - You mentioned that you sometimes miss your insulin. - It is very important that you take your insulin every day to help maintain your blood sugar levels in a reasonably safe range. - We discussed possibly changing to a different insulin (Toujeo Max or Tresiba U-200) that can be taken 1x/day. Then your family could help with the injections so that you do not miss doses. Encouraged further discussion with your outpatient provider. Pending Studies at Discharge: No Stand-Alone Forms: My [facility] [employer], Smoking Cessation Medications and DC Order Prescriptions: New spironolactone 25 mg Tablet 25 mg PO QAM Qty: 30 5RF Rx Instructions: diuretic/fluid pill (DME) Oxygen Home Liters Per Minute See Rx Instructions .ROUTE .MEDSUPPLY Qty: 1 0RF Rx Instructions: 3 liters continuously. tamsulosin 0.4 mg capsule 0.4 mg PO DAILY Qty: 30 5RF Rx Instructions: for enlarged prostate/urinary flow Continued Stiolto Respimat 2.5-2.5 mcg/actuation mist 0 puff inhalation DAILY Patient Comments: 07/10- last filled 12/12 30 day supply. original: 2 puff inhalation daily. metoprolol succinate 50 mg tablet extended release 24 hr 50 mg PO DAILY omeprazole 40 mg capsule,delayed release(DR/EC) 40 mg PO DAILY aspirin [Children's Aspirin] 81 mg Tablet,Chewable 81 mg PO DAILY Patient Comments: 07/10- otc unable to verify metformin 1,000 mg tablet 1,000 mg PO BID clopidogrel 75 mg tablet 75 mg PO DAILY nortriptyline 25 mg capsule 25 mg PO HS Changed furosemide 40 mg tablet 40 mg PO BID Qty: 0 0RF Patient Comments: 07/10- last filled 11/26 45 day supply #90. original: 40 mg po bid Rx Instructions: take first thing in morning when you wake up, then take it again about 4-5pm in the afternoon. rosuvastatin 10 mg tablet 10 mg PO DAILY Qty: 0 0RF Patient Comments: 07/10- last filled 01/17 90 day supply #90. original: 10 mg po daily insulin glargine [Lantus Solostar U-100 Insulin] 100 unit/mL (3 mL) insulin pen 40 unit SUBCUT HS Qty: 0 0RF Patient Comments: 07/10- per fill history 05/09 directions are written for 60 units bid; Original: 50 units bid cilostazol 50 mg tablet 50 mg PO BID Qty: 60 5RF Rx Instructions: note the lower dose of 50mg twice daily Held Mounjaro 2.5 mg/0.5 mL pen injector 2.5 mg SUBCUT UD Hold Instructions: please hold until you see your family doctor Patient Comments: 06/27-pt isnt sure if he's taking the medication. last filled 06/06/25 Rx Instructions: 2.5 mg wk for 4 weeks then increase to 5mg wk Discontinued glipizide 5 mg tablet 0 mg PO BID Hold Instructions: Resume on 07/12/25. Hold until seen by primary care doctor Patient Comments: 07/10- last filled 03/21 30 day supply #60. original: 5mg po bid lisinopril 30 mg Tablet 30 mg PO DAILY Hold Instructions: Resume on 07/12/25. Hold until seen by primary care provider Discharge Orders: Discharge Order (Routine); Ordered 07/16/25 Ordered By: Merrick Lorenzo/Other Patient Handouts: Spironolactone Oral Tablet, Indwelling Urinary Catheter Dc, Low Salt Diet Dc, ED Right-Sided Heart Failure, ED Franco Catheter, Care Admission Data Admit Date/Time: 07/10/25 15:11 Attending Provider: Merrick Ariza Admit Provider: Merrick Ariza Primary Care Provider: Mckenna Fernando Other Providers: Merrick Ariza Hospital Stay Data Consultations 07/10/25 14:06 ED Decision to Admit Stat Diagnostic Imagining Performed 07/10/25 11:30 CT angio chest PE protocol Stat CT head/brain wo con Stat Pending Results Patient Have Any Pending Studies at Discharge: No Discharge Instructions Given to Patient (Per Discharging Provider) Mr Monte, Mic came to the hospital because of difficulty breathing. This was due to fluid build-up in the lungs and your abdomen from congestive heart failure. Your breathing improved as the fluid exited your lungs. You lost more than 25 pounds of water weight while here. Your abdomen had gotten distended because of fluid. During the stay you also had troubles urinating. We call this urinary retention. Your bladder is simply not working normally. This leads to urine building up in the bladder. We had to place a catheter in your bladder to drain it multiple times. You will need to see a urologist (bladder doctor) for this problem. Unfortunately you will have to have a catheter in your bladder when you go home. Recommendations - 1. Check your weight EVERY MORNING as described below. 2. START spironolactone 25mg every morning. This is a water pill/diuretic for your congestive heart. START on 07/17/25. 3. TAKE your furosemide water pill 40mg every morning and every afternoon. 4. Drain the franco catheter bag as needed. I have included handouts on franco catheters. You will need to see [facility] in [place] to have the bladder specialist manage the catheter and determine the cause of the urinary problem. 5. Use 3 liters of oxygen continuously as previous. 6. Use your BIPAP machine every night with sleep and with long naps. This is v brown important for your heart health. 7. Watch your salt intake - see handout on "low salt" diet. 8. I have LOWERED your long-acting Lantus insulin (glargine) to 40 units ONCE A DAY at bedtime (rather than twice daily). 9. I have STOPPED your glipizide. I have STOPPED your lisinopril. 10. I have prescribed a medicine for your prostate called "tamsulosin." This may help you get the catheter out of your bladder down the line. Start this TOMORROW MORNING, 07/17/25. Follow-up appointments - see separate section Return to [facility] if - -you see large amounts of blood in the franco catheter bag -you are concerned that the catheter is not draining -you have worsening shortness of breath or chest pains -you have concerns about fluid retention -any other concerns It was our pleasure to care for you! -Merrick Ariza Coding Diagnoses Acute on chronic respiratory failure with hypoxia and hypercapnia J96.21; J96.22 Acute on chronic heart failure with preserved ejection fraction (HFpEF) I50.33 Acute on chronic right-sided congestive heart failure I50.813 COPD with emphysema J43.9 Status post below knee amputation of right lower extremity Z89.511 Pulmonary hypertension I27.20 Type 2 diabetes mellitus with diabetic peripheral angiopathy and gangrene, with long-term current use of insulin E11.52; Z79.4 Diabetes mellitus half-way insulin use: with switchboard wire worker helper use Diabetes mellitus complication status: with circulatory complication BETTE (obstructive sleep apnea) G47.33 Coronary artery disease I25.10 Primary hypertension I10 Hypertension type: primary hypertension Acute hyperkalemia E87.5 Acute kidney injury N17.9 COPD (chronic obstructive pulmonary disease) J44.9
== END 2025-07-16 12:43 | disposition home or self-care (01) | DRG 291 ==
LOC: ED 11:12 → 4W 15:11